=== PATIENT | female | born 1985 | race Hispanic/Latino ===

== ENCOUNTER 2018-04-04 09:24 | Inpatient (IN) | payer OTHER ==
[~2018-04-04] VITALS: Ht 165.1 cm; Wt 81.6 kg
[2018-04-04 09:55] VITALS: BP 112/61
[2018-04-04 10:40] LABS: HEMATOCRIT 35.8 % (36-48); MEAN CORPUSCULAR HEMOGLOBIN 29.1 pg (27.0-33.0); MEAN CORPUSCULAR HGB CONC 32.5 g/dL (32.0-36.0); MEAN CORPUSCULAR VOLUME 89.6 fL (79-99); PLATELET COUNT (AUTO) 262 K/uL (130-400); RED BLOOD CELL COUNT(AUTO) 3.99 MIL/uL (4.00-5.50); RED CELL DISTRIBUTION WIDTH 14.7 % (11.0-15.5); WHITE BLOOD COUNT (AUTO) 6.9 K/uL (4.8-10.8)
[2018-04-04 10:48] LABS: HEMOGLOBIN A1C 10.7 % (4.0-6.0)
[2018-04-04 11:12] VITALS: BP 101/59
[2018-04-04] MEDS ORDERED: GLYB5TAB8 PO (15:22)
[2018-04-04 15:33] VITALS: BP 106/60
[2018-04-04] MEDS: INSULIN HUMULIN R 100 UNIT/ML 3ML SQ SCH (17:12)
[2018-04-04] MEDS: INSULIN NPH 100 UNIT/ML 3ML SQ SCH (17:13)
[2018-04-04 19:39] VITALS: BP 98/60
[2018-04-05] VITALS (8 sets, daily range): BP systolic 93–120; BP diastolic 52–77
[2018-04-05] MEDS: INSULIN NPH 100 UNIT/ML 3ML SQ SCH ×2 (07:30→16:59)
[2018-04-05] MEDS: INSULIN HUMULIN R 100 UNIT/ML 3ML SQ SCH ×3 (07:31→17:00)
[2018-04-06 03:39] VITALS: BP 88/60
[2018-04-06 07:30] VITALS: BP 96/59
[2018-04-06] MEDS: INSULIN HUMULIN R 100 UNIT/ML 3ML SQ SCH ×3 (07:30→17:07)
[2018-04-06] MEDS: INSULIN NPH 100 UNIT/ML 3ML SQ SCH ×2 (07:33→17:09)
[2018-04-06 11:20] VITALS: BP 118/71
[2018-04-06 15:45] VITALS: BP 97/56
[2018-04-06 19:32] VITALS: BP 107/62
[2018-04-07 00:01] VITALS: BP 85/58
[2018-04-07 03:27] VITALS: BP 101/51
[2018-04-07 07:34] VITALS: BP 99/47
[2018-04-07] MEDS: INSULIN NPH 100 UNIT/ML 3ML SQ SCH ×2 (08:18→17:09)
[2018-04-07] MEDS: INSULIN HUMULIN R 100 UNIT/ML 3ML SQ SCH ×3 (08:19→17:00)
[2018-04-07 11:38] VITALS: BP 113/56
[2018-04-07 15:41] VITALS: BP 102/57
[2018-04-07 19:45] VITALS: BP 111/63
[2018-04-08] VITALS (7 sets, daily range): BP systolic 90–117; BP diastolic 40–73
[2018-04-08] MEDS: INSULIN NPH 100 UNIT/ML 3ML SQ SCH (08:07)
[2018-04-08] MEDS: INSULIN HUMULIN R 100 UNIT/ML 3ML SQ SCH ×3 (08:08→17:05)
[2018-04-08] MEDS ORDERED: INSULIN NPH 100 UNIT/ML 3ML SQ SCH (21:00)
[2018-04-09 03:23] VITALS: BP 87/42
[2018-04-09 07:30] VITALS: BP 111/52
[2018-04-09] MEDS ORDERED: INSULIN NPH 100 UNIT/ML 3ML SQ SCH (07:30)
[2018-04-09] MEDS: INSULIN HUMULIN R 100 UNIT/ML 3ML SQ SCH ×2 (08:55→17:18)
[2018-04-09 12:03] VITALS: BP 119/62
[2018-04-09 16:10] VITALS: BP 130/90
== END 2018-04-09 17:30 | disposition left against medical advice (07) | DRG 833 ==
LOC: WSH 09:24 → OBSVTOIN 09:24 → WSH 04-08 18:15
PROVIDERS: ADMIT Obstetrics & Gynecology; ATTEND Obstetrics & Gynecology
PROC: 3E0234Z Introduction of Serum, Toxoid and Vaccine into Muscle, Percutaneous Approach (ICD-10-PCS; principal; 2018-04-04)
DX: O24.419 Gestational diabetes mellitus in pregnancy, unspecified control (principal); Z3A.01 Less than 8 weeks gestation of pregnancy; Z23 Encounter for immunization; Z71.3 Dietary counseling and surveillance
CPT/HCPCS: 36415; 76801; 82948; 83036; 85027; G0008; J1815; Q2038

== ENCOUNTER 2018-07-04 12:09 | Emergency (ER) | payer MEDICAID, OTHER ==
[~2018-07-04 12:09] MED LIST: GLYB5TAB8 PO
[2018-07-04 13:03] LABS: APPEARANCE,URINE Clear (CLEAR); BILIRUBIN,URINE Negative (NEGATIVE); COLOR,URINE Yellow (YELLOW); GLUCOSE, URINE (UA) Negative (NEGATIVE); KETONES,URINE Trace mg/dL (NEGATIVE); LEUKOCYTE ESTERASE ,URINE Negative (NEGATIVE); NITRATE,URINE Negative (NEGATIVE); OCCULT BLOOD,URINE Negative (NEGATIVE); PROTEIN,URINE Negative (NEGATIVE); UROBILINOGEN,URINE 0.2 mg/dL (0.2-1.0)
[2018-07-04 13:10] LABS: BACTERIA,URINE Moderate /HPF (None Seen); MUCUS,URINE Rare LPF (None Seen); RBC,URINE 0-1 /HPF (0-1); SQUAMOUS EPITHELIAL CELL,UR Many /HPF (0-2); WBC,URINE 0-1 /HPF (0-1)
== END 2018-07-04 13:22 | disposition home or self-care (01) ==
LOC: EDH 12:09
DX: O26.892 Other specified pregnancy related conditions, second trimester (principal); R10.32 Left lower quadrant pain; O24.912 Unspecified diabetes mellitus in pregnancy, second trimester; Z3A.20 20 weeks gestation of pregnancy; Z90.49 Acquired absence of other specified parts of digestive tract
CPT/HCPCS: 81001

== ENCOUNTER 2018-09-28 16:27 | Observation (INO) | payer OTHER ==
[~2018-09-28] VITALS: Ht 165.1 cm; Wt 99.8 kg
[2018-09-28] MEDS ORDERED: LACTATED RINGERS 1000ML 1,000 ML IV SCH (17:00)
[2018-09-28 17:03] VITALS: BP 119/70
[2018-09-28 17:09] LABS: APPEARANCE,URINE Clear (CLEAR); BILIRUBIN,URINE Negative (NEGATIVE); COLOR,URINE Yellow (YELLOW); GLUCOSE, URINE (UA) Negative (NEGATIVE); KETONES,URINE 40 mg/dL (NEGATIVE); LEUKOCYTE ESTERASE ,URINE Negative (NEGATIVE); NITRATE,URINE Negative (NEGATIVE); OCCULT BLOOD,URINE Negative (NEGATIVE); PH,URINE 6.5 (5.0-8.0); PROTEIN,URINE Negative (NEGATIVE); UROBILINOGEN,URINE 0.2 mg/dL (0.2-1.0)
== END 2018-09-28 18:19 | disposition home or self-care (01) ==
LOC: LDH 16:27
PROVIDERS: ADMIT Obstetrics & Gynecology; ATTEND Obstetrics & Gynecology
DX: O60.03 Preterm labor without delivery, third trimester (principal); O24.113 Pre-existing type 2 diabetes mellitus, in pregnancy, third trimester; O26.893 Other specified pregnancy related conditions, third trimester; R19.7 Diarrhea, unspecified; Z3A.30 30 weeks gestation of pregnancy
CPT/HCPCS: 81003; 82948; G0378 ×3; J7120; 96360

== ENCOUNTER 2018-10-12 12:06 | Observation (INO) | payer MEDICAID, OTHER ==
[2018-10-12 12:49] LABS: APPEARANCE,URINE Clear (CLEAR); BILIRUBIN,URINE Negative (NEGATIVE); COLOR,URINE Yellow (YELLOW); GLUCOSE, URINE (UA) Negative (NEGATIVE); KETONES,URINE Negative (NEGATIVE); LEUKOCYTE ESTERASE ,URINE Negative (NEGATIVE); NITRATE,URINE Negative (NEGATIVE); OCCULT BLOOD,URINE Negative (NEGATIVE); PROTEIN,URINE Negative (NEGATIVE); UROBILINOGEN,URINE 0.2 mg/dL (0.2-1.0)
[2018-10-12] MEDS: LACTATED RINGERS 1000ML 1,000 ML IV SCH ×2 (12:50→13:40)
[2018-10-12] MEDS ORDERED: GLUCAGON 1MG KIT 1 MG ML IM PRN (13:15)
[2018-10-12] MEDS ORDERED: DEXTROSE 50%-WATER 50 ML DISP.SYRIN IV PRN (13:15)
[2018-10-12 13:29] LABS: MEAN CORPUSCULAR HEMOGLOBIN 29.1 pg (27.0-33.0); MEAN CORPUSCULAR HGB CONC 33.2 g/dL (32.0-36.0); MEAN CORPUSCULAR VOLUME 87.7 fL (79-99); PLATELET COUNT (AUTO) 280 K/uL (130-400); RED BLOOD CELL COUNT(AUTO) 3.87 MIL/uL (4.00-5.50); RED CELL DISTRIBUTION WIDTH 14.4 % (11.0-15.5); WHITE BLOOD COUNT (AUTO) 7.9 K/uL (4.8-10.8)
[2018-10-12] MEDS ORDERED: PHARMACY COMMUNICATION MISC SCH (13:45)
[2018-10-12] MEDS ORDERED: CELESTONE SOLUSPAN 6 MG/ML 5ML VIAL IM SCH (13:51)
[2018-10-12] MEDS ORDERED: DEXTROSE 5%-LACTATED RINGERS 1,000 ML IV SCH (15:00)
[2018-10-13 09:21] LABS: HEPATITIS Bs ANTIGEN SCREEN P Negative (Negative)
[2018-11-14] MEDS ORDERED: NPH,100V SQ ×2 (09:25)
[2018-11-14] MEDS ORDERED: INSU100C6 SQ ×2 (09:25)
[2018-11-14] MEDS ORDERED: FERR-82 PO (09:25)
[2018-11-14] MEDS ORDERED: PNV1TABL17 PO (09:25)
== END 2018-10-12 17:25 | disposition home or self-care (01) ==
LOC: LDH 12:06
PROVIDERS: ADMIT Obstetrics & Gynecology; ATTEND Obstetrics & Gynecology
DX: O62.9 Abnormality of forces of labor, unspecified (principal); O24.113 Pre-existing type 2 diabetes mellitus, in pregnancy, third trimester; O99.333 Smoking (tobacco) complicating pregnancy, third trimester; F17.210 Nicotine dependence, cigarettes, uncomplicated; Z79.899 Other long term (current) drug therapy; Z3A.32 32 weeks gestation of pregnancy
CPT/HCPCS: 36415; 81003; 82947 ×2; 82948 ×7; 85027; 86592; 86850; 86900; 86901; 87340; G0378 ×6; J7120; 96360; 96361

== ENCOUNTER 2018-10-27 16:46 | Observation (INO) | payer OTHER ==
[~2018-10-27] VITALS: Ht 165.1 cm; Wt 101.2 kg
[2018-10-27] MEDS ORDERED: LACTATED RINGERS 1000ML 1,000 ML IV SCH (17:09)
[2018-10-27 18:07] LABS: APPEARANCE,URINE HAZY (CLEAR); BILIRUBIN,URINE Negative (NEGATIVE); COLOR,URINE Yellow (YELLOW); GLUCOSE, URINE (UA) Negative (NEGATIVE); KETONES,URINE Negative (NEGATIVE); LEUKOCYTE ESTERASE ,URINE Negative (NEGATIVE); NITRATE,URINE Negative (NEGATIVE); OCCULT BLOOD,URINE Negative (NEGATIVE); PROTEIN,URINE Negative (NEGATIVE); UROBILINOGEN,URINE 0.2 mg/dL (0.2-1.0)
[2018-10-27 18:28] LABS: BACTERIA,URINE Many /HPF (None Seen); RBC,URINE None Seen /HPF (0-1); SQUAMOUS EPITHELIAL CELL,UR 0-2 /HPF (0-2); WBC,URINE 0-1 /HPF (0-1)
[2018-10-27] MEDS ORDERED: LACTATED RINGERS 1000ML 1,000 ML IV PRN (18:52)
[2018-10-27] MEDS ORDERED: AMPICILLIN 2GM+NS 100ML 100 ML IV SCH (19:00)
[2018-10-27] MEDS ORDERED: DEXAMETHASONE SOD PHOSPHATE 4 MG/ML 1ML VIAL IM SCH (19:00)
[2018-10-27] MEDS ORDERED: TERBUTALINE SULFATE VIAL 1MG/ML SQ PRN (19:00)
== END 2018-10-27 20:50 | disposition home or self-care (01) ==
LOC: LDH 16:46
PROVIDERS: ADMIT Obstetrics & Gynecology; ATTEND Obstetrics & Gynecology
DX: O36.8130 Decreased fetal movements, third trimester, not applicable or unspecified (principal); O24.113 Pre-existing type 2 diabetes mellitus, in pregnancy, third trimester; Z3A.36 36 weeks gestation of pregnancy
CPT/HCPCS: 76805; 81001; 82948; 96365; 96372; G0378 ×5; J0290; J1100; J3105

== ENCOUNTER 2021-06-22 00:29 | Inpatient (IN) | payer MEDICAID, OTHER ==
[~2021-06-22] VITALS: Ht 165.1 cm; Wt 80.3 kg
[~2021-06-22 00:29] MED LIST changes: +FERR-82 PO; -GLYB5TAB8 PO; +INSU100C6 SQ; +NPH,100V SQ; +PNV1TABL17 PO
[2021-06-22] MEDS ORDERED: METOCLOPRAMIDE 10 MG/2 ML VIAL ONE (00:58)
[2021-06-22] MEDS ORDERED: FAMOTIDINE 20MG VIAL IV ONE ×2 (00:58→01:00)
[2021-06-22] MEDS ORDERED: PANTOPRAZOLE 40 MG/VIAL ONE (00:58)
[2021-06-22] MEDS ORDERED: ONDANSETRON 4MG INJ ONE (00:58)
[2021-06-22] MEDS ORDERED: METOCLOPRAMIDE 10 MG/2 ML VIAL IVP ONE (01:00)
[2021-06-22] MEDS ORDERED: PANTOPRAZOLE 40 MG/VIAL IVP ONE (01:00)
[2021-06-22] MEDS ORDERED: ONDANSETRON 4MG INJ IVP ONE (01:00)
[2021-06-22] MEDS ORDERED: 0.9%NACL 1000ML 1,000 ML IV ONE ×5 (01:00→03:30)
[2021-06-22 01:02] LABS: BASOPHILS % (AUTO) 0.2 % (0.0-5.0); EOSINOPHILS % (AUTO) 0.2 % (0.0-8.0); HEMATOCRIT 39.7 % (36-48); LYMPHOCYTES % (AUTO) 17.4 % (21.0-51.0); MEAN CORPUSCULAR HEMOGLOBIN 29.4 pg (27.0-33.0); MEAN CORPUSCULAR HGB CONC 33.2 g/dL (32.0-36.0); MEAN CORPUSCULAR VOLUME 88.4 fL (79-99); MONOCYTES % (AUTO) 6.7 % (3.0-13.0); NEUTROPHILS % (AUTO) 75.2 % (40.0-77.0); PLATELET COUNT (AUTO) 367 K/uL (130-400); RED BLOOD CELL COUNT(AUTO) 4.49 MIL/uL (4.00-5.50); RED CELL DISTRIBUTION WIDTH 12.1 % (11.0-15.5); WHITE BLOOD COUNT (AUTO) 13.3 K/uL (4.8-10.8)
[2021-06-22 01:19] LABS: CREATININE 0.6 mg/dL (0.5-1.5); POTASSIUM 3.4 mmol/L (3.5-5.1)
[2021-06-22 01:30] LABS: ALBUMIN 3.9 g/dL (3.5-5.0); BILIRUBIN,TOTAL 0.2 mg/dL (0.2-1.0); TOTAL PROTEIN, SERUM 8.2 g/dL (6.0-8.3)
[2021-06-22] MEDS ORDERED: IOHEXOL 350 MG/ML 100ML INFUS..BTL IV ONE (01:39)
[2021-06-22 01:40] LABS: BILIRUBIN,URINE Negative (NEGATIVE); COLOR,URINE Yellow (YELLOW); GLUCOSE, URINE (UA) >=1000 mg/dL (NEGATIVE); KETONES,URINE >=80 mg/dL (NEGATIVE); LEUKOCYTE ESTERASE ,URINE Small (NEGATIVE); NITRATE,URINE Positive (NEGATIVE); OCCULT BLOOD,URINE Large (NEGATIVE); PH,URINE 7.5 (5.0-8.0); PROTEIN,URINE POS 2+ mg/dL (NEGATIVE)
[2021-06-22 01:43] LABS: APPEARANCE,URINE SLIGHTLY CLOUDY (CLEAR); HCG,QUAL RESULT NEGATIVE (NEGATIVE)
[2021-06-22 01:51] LABS: BACTERIA,URINE Moderate /HPF (None Seen); RBC,URINE TNTC /HPF (0-1); WBC,URINE TNTC /HPF (0-1)
[2021-06-22] MEDS ORDERED: CEFTRIAXONE 1G VIAL IVP ONE (02:00)
[2021-06-22] MEDS ORDERED: CEFTRIAXONE 1G VIAL ONE (02:04)
[2021-06-22] MEDS ORDERED: KETOROLAC 30MG VIAL (30MG/ML) ONE (03:20)
[2021-06-22] MEDS ORDERED: KETOROLAC 30MG VIAL (30MG/ML) IV ONE (03:30)
[2021-06-22] MEDS ORDERED: POTASSIUM CHLORIDE 10MEQ/100ML 10 MEQ/100 ML ML IV SCH (03:45)
[2021-06-22] MEDS ORDERED: POTASSIUM CHLORIDE 10MEQ/100ML 100 ML IV ONE (03:53)
[2021-06-22] MEDS ORDERED: MORPHINE 4 MG SYG IV PRN (04:00)
[2021-06-22] MEDS ORDERED: HYDRALAZINE 20MG/ML VIAL IV PRN (04:00)
[2021-06-22] MEDS ORDERED: ONDANSETRON 4MG INJ IV PRN (04:00)
[2021-06-22] MEDS ORDERED: ACETAMINOPHEN 325 MG TAB PO PRN (04:00)
[2021-06-22] MEDS ORDERED: MORPHINE 2 MG SYG IV PRN (04:00)
[2021-06-22 04:17] LABS: CARBON DIOXIDE 27 mmol/L (21-32); CHLORIDE 107 mmol/L (101-111); CREATININE 0.5 mg/dL (0.5-1.5); GLOMERULAR FILTR. RATE CALC 151 mL/min (>60); GLUCOSE,RANDOM 161 mg/dL (70-105); POTASSIUM 3.4 mmol/L (3.5-5.1); SODIUM SERUM 143 mmol/L (136-145); UREA NITROGEN, BLOOD 9 mg/dL (7-18)
[2021-06-22 04:20] LABS: PHOSPHORUS 2.6 mg/dL (2.5-4.9); URIC ACID 2.7 mg/dL (2.6-7.2)
[2021-06-22 04:21] LABS: AMPHET/METH SCREEN,URINE NEGATIVE (NEGATIVE); BARBITURATE SCREEN, URINE NEGATIVE (NEGATIVE); BENZODIAZEPINES SCREEN,URINE NEGATIVE (NEGATIVE); CANNABINOID SCREEN,URINE NEGATIVE (NEGATIVE); COCAINE SCREEN,URINE NEGATIVE (NEGATIVE); OPIATE SCREEN,URINE NEGATIVE (NEGATIVE); PHENCYCLIDINE SCREEN,URINE NEGATIVE (NEGATIVE)
[2021-06-22 04:40] VITALS: BP 100/60
[2021-06-22] MEDS ORDERED: POTASSIUM CHLORIDE 10MEQ/100ML 10 MEQ/100 ML ML IV ONE (04:45)
[2021-06-22] MEDS: LACTATED RINGERS 1000ML 1,000 ML IV SCH ×2 (05:00→08:50)
[2021-06-22 05:18] LABS: CHOLESTEROL 212 mg/dL (<200); HDL CHOLESTEROL 33 mg/dL (35-85); LDL DIRECT 137 mg/dL (0-99); TRIGLYCERIDES 148 mg/dL (30-200)
[2021-06-22 05:29] LABS: HEMOGLOBIN A1C 11.7 % (4.0-6.0)
[2021-06-22] MEDS: INSULIN HUMULIN R 100 UNIT/ML 3ML SQ SCH ×4 (05:54→20:43)
[2021-06-22 07:30] VITALS: BP 96/48
[2021-06-22] MEDS: FAMOTIDINE 20MG VIAL IV SCH ×2 (08:45→20:07)
[2021-06-22] MEDS: LEVOFLOXACIN 750 MG/D5W 150 ML 150 ML IV SCH (08:45)
[2021-06-22] MEDS: ENOXAPARIN SODIUM 30 MG/0.3 ML SQ SCH (08:46)
[2021-06-22 09:04] LABS: CREATININE 0.4 mg/dL (0.5-1.5); POTASSIUM 3.3 mmol/L (3.5-5.1)
[2021-06-22 11:30] VITALS: BP 97/59
[2021-06-22 15:30] VITALS: BP 114/75
[2021-06-22] MEDS ORDERED: KCL 20 MEQ ERTAB PO ONE (17:45)
[2021-06-22 20:00] VITALS: BP 103/59
[2021-06-22] MEDS ORDERED: ATORVASTATIN 40 MG TABLET PO SCH (21:00)
[2021-06-22] MEDS ORDERED: INSULIN GLARGINE 100 UNITS/ML 10 ML VIAL SQ SCH (21:00)
[2021-06-23 00:35] VITALS: BP 90/53
[2021-06-23 04:32] VITALS: BP 102/66
[2021-06-23 04:59] LABS: BASOPHILS % (AUTO) 0.2 % (0.0-5.0); HEMATOCRIT 31.6 % (36-48); LYMPHOCYTES % (AUTO) 37.6 % (21.0-51.0); MEAN CORPUSCULAR VOLUME 93.8 fL (79-99); MONOCYTES % (AUTO) 6.9 % (3.0-13.0); NEUTROPHILS % (AUTO) 54.1 % (40.0-77.0); PLATELET COUNT (AUTO) 263 K/uL (130-400); RED BLOOD CELL COUNT(AUTO) 3.37 MIL/uL (4.00-5.50); RED CELL DISTRIBUTION WIDTH 12.5 % (11.0-15.5); WHITE BLOOD COUNT (AUTO) 6.3 K/uL (4.8-10.8)
[2021-06-23 05:06] LABS: ALBUMIN 2.6 g/dL (3.5-5.0); BILIRUBIN,TOTAL 0.2 mg/dL (0.2-1.0); CREATININE 0.5 mg/dL (0.5-1.5); POTASSIUM 4.3 mmol/L (3.5-5.1); TOTAL PROTEIN, SERUM 5.8 g/dL (6.0-8.3)
[2021-06-23] MEDS: INSULIN HUMULIN R 100 UNIT/ML 3ML SQ SCH ×2 (06:33→11:59)
[2021-06-23 07:30] VITALS: BP 105/69
[2021-06-23] MEDS: LEVOFLOXACIN 750 MG/D5W 150 ML 150 ML IV SCH (09:33)
[2021-06-23] MEDS: FAMOTIDINE 20MG VIAL IV SCH (09:33)
[2021-06-23] MEDS: ENOXAPARIN SODIUM 30 MG/0.3 ML SQ SCH (09:34)
[2021-06-23 11:00] VITALS: BP 110/73
[2021-06-23] MEDS ORDERED: ATOR40TA69 PO (12:21)
[2021-06-23] MEDS ORDERED: CEFU500T67 PO (12:21)
[2021-06-23] MEDS ORDERED: METF-526 PO (12:39)
[2021-06-23] MEDS ORDERED: GLIP5TAB11 PO (12:39)
== END 2021-06-23 13:00 | disposition home or self-care (01) | DRG 690 ==
LOC: EDH 00:29 → EDHIP 00:30 → 3CH 04:32
PROVIDERS: ADMIT Hospitalist; ATTEND Hospitalist
DX: N13.6 Pyonephrosis (principal); E86.9 Volume depletion, unspecified; E11.65 Type 2 diabetes mellitus with hyperglycemia; D72.829 Elevated white blood cell count, unspecified; Z79.4 Long term (current) use of insulin; Z83.3 Family history of diabetes mellitus; Z82.49 Family history of ischemic heart disease and other diseases of the circulatory system
CPT/HCPCS: 36415; 36600; 74177; 80048; 80053; 80061; 80305; 81001; 81025; 82010; 82948; 83036; 83605; 83690; 83735; 84100; 84145; 84550; 85025; 87040; 87077; 87088; 87186; 99291; C9113; G0378; J0696; J1650; J1815; J1885; J1956; J2405; J2765; J3490; Q9967

== ENCOUNTER 2021-07-09 21:43 | Emergency (ER) | payer SELFPAY ==
[~2021-07-09] VITALS: Ht 165.1 cm; Wt 80.3 kg
[~2021-07-09 21:43] MED LIST changes: +ATOR40TA69 PO; +CEFU500T67 PO; +GLIP5TAB11 PO; +METF-526 PO
[2021-07-09 22:06] LABS: APPEARANCE,URINE Turbid (CLEAR); BILIRUBIN,URINE Negative (NEGATIVE); COLOR,URINE Yellow (YELLOW); GLUCOSE, URINE (UA) >=1000 mg/dL (NEGATIVE); KETONES,URINE 15 mg/dL (NEGATIVE); LEUKOCYTE ESTERASE ,URINE Moderate (NEGATIVE); NITRATE,URINE Positive (NEGATIVE); OCCULT BLOOD,URINE Large (NEGATIVE); PROTEIN,URINE >=1000 mg/dL (NEGATIVE)
[2021-07-09 22:25] LABS: BACTERIA,URINE Many /HPF (None Seen); RBC,URINE 26-50 /HPF (0-1); SQUAMOUS EPITHELIAL CELL,UR Few /HPF (0-2); WBC,URINE TNTC /HPF (0-1)
[2021-07-09] MEDS ORDERED: CEFTRIAXONE 1G VIAL 1 GM in 0.9%NACL 50ML 50 ML IV ONE (23:00)
[2021-07-09] MEDS ORDERED: PHENAZOPYRIDINE HCL 200 MG TABLET PO ONE (23:00)
[2021-07-09] MEDS ORDERED: CEFTRIAXONE 1G VIAL ONE (23:24)
[2021-07-09 23:27] LABS: BASOPHILS % (AUTO) 0.2 % (0.0-5.0); EOSINOPHILS % (AUTO) 0.3 % (0.0-8.0); HEMATOCRIT 41.4 % (36-48); MEAN CORPUSCULAR HEMOGLOBIN 29.2 pg (27.0-33.0); MEAN CORPUSCULAR HGB CONC 32.9 g/dL (32.0-36.0); MEAN CORPUSCULAR VOLUME 88.8 fL (79-99); MONOCYTES % (AUTO) 7.9 % (3.0-13.0); NEUTROPHILS % (AUTO) 70.2 % (40.0-77.0); PLATELET COUNT (AUTO) 283 K/uL (130-400); RED BLOOD CELL COUNT(AUTO) 4.66 MIL/uL (4.00-5.50); RED CELL DISTRIBUTION WIDTH 12.5 % (11.0-15.5); WHITE BLOOD COUNT (AUTO) 12.1 K/uL (4.8-10.8)
[2021-07-09 23:39] LABS: CREATININE 0.4 mg/dL (0.5-1.5); POTASSIUM 4.2 mmol/L (3.5-5.1)
[2021-07-09 23:45] LABS: ALBUMIN 3.5 g/dL (3.5-5.0); BILIRUBIN,TOTAL 0.4 mg/dL (0.2-1.0); TOTAL PROTEIN, SERUM 8.1 g/dL (6.0-8.3)
[2021-07-10 00:37] VITALS: BP 131/65
[2021-07-10] MEDS ORDERED: PHEN-847 PO (01:03)
[2021-07-10] MEDS ORDERED: CEPH500B PO (01:03)
== END 2021-07-10 01:31 | disposition left against medical advice (07) ==
LOC: EDH 21:43 → EDSEX 21:43 → EDH 07-10 01:31
DX: N39.0 Urinary tract infection, site not specified (principal); E11.9 Type 2 diabetes mellitus without complications; Z79.4 Long term (current) use of insulin; Z79.899 Other long term (current) drug therapy; Z90.49 Acquired absence of other specified parts of digestive tract
CPT/HCPCS: 36415; 80053; 81001; 85025; 87077; 87088; 87186; 96374; 99283; J0696 ×2

== ENCOUNTER 2021-12-07 06:31 | Inpatient (IN) | payer MEDICAID, OTHER ==
[2021-12-07] VITALS (28 sets, daily range): BP systolic 86–103; BP diastolic 38–62
[~2021-12-07] VITALS: Ht 165.1 cm; Wt 74.3 kg
[~2021-12-07 06:31] MED LIST changes: +CEPH500B PO; +PHEN-847 PO
[2021-12-07 06:56] LABS: BASOPHILS % (AUTO) 0.2 % (0.0-5.0); HEMATOCRIT 48.2 % (36-48); MEAN CORPUSCULAR HGB CONC 32.6 g/dL (32.0-36.0); MEAN CORPUSCULAR VOLUME 88.9 fL (79-99); MONOCYTES % (AUTO) 5.5 % (3.0-13.0); NEUTROPHILS % (AUTO) 90.8 % (40.0-77.0); PLATELET COUNT (AUTO) 340 K/uL (130-400); RED BLOOD CELL COUNT(AUTO) 5.42 MIL/uL (4.00-5.50); RED CELL DISTRIBUTION WIDTH 12.6 % (11.0-15.5); WHITE BLOOD COUNT (AUTO) 17.1 K/uL (4.8-10.8)
[2021-12-07 06:58] LABS: APPEARANCE,URINE CLEAR (CLEAR); BILIRUBIN,URINE NEGATIVE (NEGATIVE); COLOR,URINE YELLOW (YELLOW); GLUCOSE, URINE (UA) >=1000 mg/dL (NEGATIVE); KETONES,URINE >=80 mg/dL (NEGATIVE); LEUKOCYTE ESTERASE ,URINE NEGATIVE (NEGATIVE); NITRATE,URINE NEGATIVE (NEGATIVE); OCCULT BLOOD,URINE NEGATIVE (NEGATIVE); PROTEIN,URINE NEGATIVE (NEGATIVE); UROBILINOGEN,URINE 0.2 mg/dL (0.2-1.0)
[2021-12-07 07:02] LABS: HCG,QUAL RESULT NEGATIVE (NEGATIVE)
[2021-12-07 07:08] LABS: BACTERIA,URINE Rare /HPF (None Seen); MUCUS,URINE Few LPF (None Seen); RBC,URINE None Seen /HPF (0-1); SQUAMOUS EPITHELIAL CELL,UR 0-2 /HPF (0-2); WBC,URINE None Seen /HPF (0-1); YEAST,URINE BUDDING Few /HPF (None Seen)
[2021-12-07 07:09] LABS: ALBUMIN 3.9 g/dL (3.5-5.0); CREATININE 0.6 mg/dL (0.5-1.5); POTASSIUM 4.2 mmol/L (3.5-5.1)
[2021-12-07 07:11] LABS: BILIRUBIN,TOTAL 0.5 mg/dL (0.2-1.0); TOTAL PROTEIN, SERUM 8.4 g/dL (6.0-8.3)
[2021-12-07] MEDS ORDERED: 0.9%NACL 1000ML 1,000 ML IV ONE ×2 (07:30→08:00)
[2021-12-07] MEDS ORDERED: ONDANSETRON 4MG INJ IVP ONE (07:30)
[2021-12-07 07:49] LABS: ABG OXYGEN SATURATION 44.8 % (95.0-99.0); BASE EXCESS,VENOUS BLOOD GAS -11.8 (-2.0-3.0); HCO3,VENOUS BLOOD GAS 15.2 (21.0-28.0); PCO2,VENOUS BLOOD GAS 38 (32-45); PH,VENOUS BLOOD GAS 7.217 (7.350-7.450)
[2021-12-07] MEDS ORDERED: POTASSIUM BICARB/CIT AC 25 MEQ TABLET.EFF PO ONE (08:00)
[2021-12-07] MEDS ORDERED: INSULIN REGULAR, HUMAN 3ML 100 UNIT in 0.9%NACL 100ML 99 ML IV PRN ×2 (08:00)
[2021-12-07 08:12] LABS: MAGNESIUM 1.8 mg/dL (1.80-2.40); PHOSPHORUS 4.7 mg/dL (2.5-4.9)
[2021-12-07] MEDS ORDERED: PHARMACY COMMUNICATION MISC SCH (08:30)
[2021-12-07] MEDS: CEFTRIAXONE 2GM VIAL IVP SCH (08:57)
[2021-12-07] MEDS ORDERED: POTASSIUM CHLORIDE 10MEQ/100ML 100 ML IV PRN (09:00)
[2021-12-07] MEDS ORDERED: D5W-1/2 NS/20MEQ KCL 1,000 ML IV SCH (09:00)
[2021-12-07] MEDS ORDERED: 0.9%NACL 1000ML 1,000 ML IV SCH (09:00)
[2021-12-07 09:08] LABS: CREATININE 0.7 mg/dL (0.5-1.5); POTASSIUM 4.7 mmol/L (3.5-5.1)
[2021-12-07 09:11] LABS: HEMOGLOBIN A1C 13.1 % (4.0-6.0)
[2021-12-07] MEDS: DEXTROSE 5 %-0.45 % NACL 1,000 ML IV PRN ×2 (12:06→22:54)
[2021-12-07 12:42] LABS: CREATININE 0.4 mg/dL (0.5-1.5); POTASSIUM 3.6 mmol/L (3.5-5.1)
[2021-12-07 14:39] LABS: AMPHET/METH SCREEN,URINE NEGATIVE (NEGATIVE); BARBITURATE SCREEN, URINE NEGATIVE (NEGATIVE); BENZODIAZEPINES SCREEN,URINE NEGATIVE (NEGATIVE); CANNABINOID SCREEN,URINE NEGATIVE (NEGATIVE); COCAINE SCREEN,URINE NEGATIVE (NEGATIVE); OPIATE SCREEN,URINE NEGATIVE (NEGATIVE); PHENCYCLIDINE SCREEN,URINE NEGATIVE (NEGATIVE)
[2021-12-07] MEDS: INSULIN NPH 100 UNIT/ML 3ML SQ SCH (16:10)
[2021-12-07 16:15] LABS: CREATININE 0.4 mg/dL (0.5-1.5); POTASSIUM 3.8 mmol/L (3.5-5.1)
[2021-12-07] MEDS ORDERED: POTASSIUM CHLORIDE 10% ELIXIR 20 MEQ/15 ML UDCUP PO PRN (18:30)
[2021-12-07] MEDS ORDERED: POTASSIUM CHLORIDE 20MEQ/100ML 100 ML IV PRN (18:30)
[2021-12-07 20:22] LABS: CREATININE 0.4 mg/dL (0.5-1.5); POTASSIUM 3.7 mmol/L (3.5-5.1)
[2021-12-07] MEDS: INSULIN GLARGINE 100 UNITS/ML 10 ML VIAL SQ SCH (21:27)
[2021-12-07] MEDS: KCL 20 MEQ ERTAB PO PRN (22:54)
[2021-12-08] VITALS (14 sets, daily range): BP systolic 83–112; BP diastolic 45–81
[2021-12-08 01:20] LABS: CREATININE 0.4 mg/dL (0.5-1.5); POTASSIUM 3.1 mmol/L (3.5-5.1)
[2021-12-08] MEDS: KCL 20 MEQ ERTAB PO PRN ×4 (01:34→08:12)
[2021-12-08] MEDS: MAGNESIUM 2GM PREMIX 50ML 50 ML IV PRN (01:43)
[2021-12-08 05:16] LABS: BASOPHILS % (AUTO) 0.3 % (0.0-5.0); EOSINOPHILS % (AUTO) 0.8 % (0.0-8.0); HEMATOCRIT 34.8 % (36-48); LYMPHOCYTES % (AUTO) 33.8 % (21.0-51.0); MEAN CORPUSCULAR HEMOGLOBIN 28.4 pg (27.0-33.0); MEAN CORPUSCULAR HGB CONC 31.3 g/dL (32.0-36.0); MEAN CORPUSCULAR VOLUME 90.6 fL (79-99); MONOCYTES % (AUTO) 7.7 % (3.0-13.0); NEUTROPHILS % (AUTO) 57.2 % (40.0-77.0); PLATELET COUNT (AUTO) 253 K/uL (130-400); RED BLOOD CELL COUNT(AUTO) 3.84 MIL/uL (4.00-5.50); RED CELL DISTRIBUTION WIDTH 12.8 % (11.0-15.5); WHITE BLOOD COUNT (AUTO) 6.2 K/uL (4.8-10.8)
[2021-12-08 05:28] LABS: CREATININE 0.4 mg/dL (0.5-1.5); MAGNESIUM 2.1 mg/dL (1.80-2.40); POTASSIUM 3.5 mmol/L (3.5-5.1)
[2021-12-08] MEDS: INSULIN NPH 100 UNIT/ML 3ML SQ SCH (06:50)
[2021-12-08] MEDS: INSULIN GLARGINE 100 UNITS/ML 10 ML VIAL SQ SCH (06:51)
[2021-12-08 06:59] LABS: ABG BASE EXCESS -7.6 mmol/L (-2.0-3.0); ABG HCO3 16.2 mmol/L (21.0-28.0); ABG OXYGEN SATURATION 97.2 % (95.0-99.0); ABG PCO2 29 mmHg (32-45)
[2021-12-08] MEDS ORDERED: INSULIN GLARGINE 100 UNITS/ML 10 ML VIAL SQ ONE (07:30)
[2021-12-08] MEDS: CEFTRIAXONE 2GM VIAL IVP SCH (08:05)
[2021-12-08] MEDS: INSULIN HUMULIN R 100 UNIT/ML 3ML SQ SCH ×7 (08:09→20:48)
[2021-12-08 08:59] LABS: CREATININE 0.4 mg/dL (0.5-1.5); POTASSIUM 3.9 mmol/L (3.5-5.1)
[2021-12-09 03:00] VITALS: BP 93/55
[2021-12-09 04:15] LABS: BASOPHILS % (AUTO) 0.3 % (0.0-5.0); EOSINOPHILS % (AUTO) 0.9 % (0.0-8.0); HEMATOCRIT 35.6 % (36-48); LYMPHOCYTES % (AUTO) 42.3 % (21.0-51.0); MEAN CORPUSCULAR HEMOGLOBIN 28.9 pg (27.0-33.0); MEAN CORPUSCULAR VOLUME 90.4 fL (79-99); NEUTROPHILS % (AUTO) 48.3 % (40.0-77.0); PLATELET COUNT (AUTO) 251 K/uL (130-400); RED BLOOD CELL COUNT(AUTO) 3.94 MIL/uL (4.00-5.50); RED CELL DISTRIBUTION WIDTH 12.7 % (11.0-15.5); WHITE BLOOD COUNT (AUTO) 5.8 K/uL (4.8-10.8)
[2021-12-09 04:36] LABS: ALBUMIN 2.4 g/dL (3.5-5.0); BILIRUBIN,TOTAL 0.2 mg/dL (0.2-1.0); CREATININE 0.4 mg/dL (0.5-1.5); MAGNESIUM 1.7 mg/dL (1.80-2.40); POTASSIUM 3.7 mmol/L (3.5-5.1); TOTAL PROTEIN, SERUM 5.5 g/dL (6.0-8.3)
[2021-12-09] MEDS ORDERED: INSULIN GLARGINE 100 UNITS/ML 10 ML VIAL SQ SCH (06:00)
[2021-12-09] MEDS: INSULIN HUMULIN R 100 UNIT/ML 3ML SQ SCH ×4 (06:03→12:15)
[2021-12-09 07:20] VITALS: BP 123/59
[2021-12-09] MEDS: MAGNESIUM 2GM PREMIX 50ML 50 ML IV PRN (08:19)
[2021-12-09] MEDS: CEFTRIAXONE 2GM VIAL IVP SCH (08:20)
[2021-12-09] MEDS ORDERED: SYRI-1628 MC (08:42)
[2021-12-09] MEDS ORDERED: INSU10VI3 SQ ×2 (08:42)
[2021-12-09 10:45] VITALS: BP 110/69
== END 2021-12-09 12:25 | disposition home or self-care (01) | DRG 639 ==
LOC: EDH 06:31 → EDHIP 06:32 → 2CH 10:42
PROVIDERS: ADMIT Hospitalist; ATTEND Hospitalist
DX: E11.10 Type 2 diabetes mellitus with ketoacidosis without coma (principal); E86.1 Hypovolemia; E87.6 Hypokalemia; E86.0 Dehydration; Z98.51 Tubal ligation status; Z90.49 Acquired absence of other specified parts of digestive tract; Z82.49 Family history of ischemic heart disease and other diseases of the circulatory system; D72.810 Lymphocytopenia; D72.829 Elevated white blood cell count, unspecified; Z83.3 Family history of diabetes mellitus
CPT/HCPCS: 36415; 36600; 80048; 80053; 80305; 81001; 81025; 82010; 82803; 82948; 83036; 83605; 83690; 83735; 84100; 84145; 85025; 87040; 87324; 87507; 99291; G0378; J0696; J1815; J2405; J3475; J3480; J7042

== ENCOUNTER → 2025-01-25 | Emergency (ER) | payer SELFPAY ==
[~2025-01-25] VITALS: Ht 157.5 cm; Wt 68.9 kg
[~2025-01-25] MED LIST changes: -ATOR40TA69 PO; -CEFU500T67 PO; -CEPH500B PO; -FERR-82 PO; -GLIP5TAB11 PO; -INSU100C6 SQ; +INSU10VI3 SQ; -METF-526 PO; -NPH,100V SQ; +ONDA-243 PO; -PHEN-847 PO; -PNV1TABL17 PO; +SYRI-1628 MC
[2025-01-25] MEDS: LACTATED RINGERS 1000ML 1,000 ML IV ONE (09:38)
[2025-01-25 09:42] LABS: CREATININE 0.4 mg/dL (0.5-1.0); GLOMERULAR FILTR. RATE CALC 131.0 mL/min (>90); GLUCOSE,RANDOM 386.0 mg/dL (70-105); SODIUM SERUM 137.0 mmol/L (136-145); UREA NITROGEN, BLOOD 9.0 mg/dL (7-18)
[2025-01-25 09:44] LABS: IMMATURE GRANULOCYTE ABSOLUTE 0.09 K/uL (0-1); NUCLEATED RED BLOOD CELLS 0.0 % (0.0-0.19); PLATELET COUNT (AUTO) 314 K/uL (130-400); RED BLOOD CELL COUNT(AUTO) 4.84 MIL/uL (4.00-5.50); RED CELL DISTRIBUTION WIDTH 12.4 % (11.0-15.5); WHITE BLOOD COUNT (AUTO) 7.4 K/uL (4.8-10.8)
[2025-01-25 09:47] LABS: ASPARTATE AMINOTRANSFERASE 10.0 U/L (10-37); TOTAL PROTEIN, SERUM 9.0 g/dL (6.0-8.3)
[2025-01-25 09:49] LABS: APPEARANCE,URINE CLEAR (CLEAR); GLUCOSE, URINE (UA) >=1000 mg/dL (NEGATIVE); LEUKOCYTE ESTERASE ,URINE NEGATIVE Leu/uL (NEGATIVE); NITRATE,URINE 1+ (NEGATIVE); OCCULT BLOOD,URINE NEGATIVE (NEGATIVE)
[2025-01-25 09:51] LABS: ADD UA MICROSCOPIC YES
[2025-01-25 09:52] LABS: SQUAMOUS EPITHELIAL CELL,UR FEW /HPF (0-2)
--- NOTE | 2025-01-25 10:33 | ERN ---
General Chief Complaint: Abdominal Pain Stated Complaint: ABDOMINAL PAIN Time Seen by MD: 08:59 Source: patient History of Present Illness Initial Comments Is a 39-year-old female coming in complaining of abdominal pain. Per patient these symptoms began earlier today. She states that the there is some discomfort in his lower abdominal region as well as epigastric region. No fever no chills. Abdominal pain is accompanied with nausea and vomiting. Allergies: Coded Allergies: No Known Drug Allergies (Unverified Allergy, Unknown, 10/02/15) Home Meds Active Scripts Syringe-Needle,Insulin,0.5 ml ([place] Insulin Syringe) 1 Each Disp.syrin, EACH MC BID, #60 2 Refills Prov:LIZETH GUTIERREZ O OBEDIENCE TRAINER 12/09/21 Insuln Asp Prt/Insulin Aspart (Novolog Mix 70-30 Vial) 100 Unit/1 Ml Vial, 15 UNITS SQ HS for 30 Days, #3 VIAL 2 Refills Prov:LIZETH GUTIERREZ O OBEDIENCE TRAINER 12/09/21 Insuln Asp Prt/Insulin Aspart (Novolog Mix 70-30 Vial) 100 Unit/1 Ml Vial, 30 UNITS SQ AM for 30 Days, #3 VIAL 2 Refills Prov:LIZETH GUTIERREZ O OBEDIENCE TRAINER 12/09/21 Past Medical History Past Medical History: No Pertinent History Medical History Other: denies pmhx Past Surgical History: Cholecystectomy, Surgical History Other: TUBAL LIGATION 2019 Social History Social History: Lives with family, Other Female( History) LMP: Dec 09, 2024 ROS Dictation CONSTITUTIONAL: No chills, no fever, no weakness, no diaphoresis, no malaise. HEAD/FACE: No signs of trauma. EENT: No eye pain, no blurred vision, no tearing, no double vision, no ear pain, no ear discharge, no nose pain, no nasal congestion, no throat pain, no throat swelling, no mouth pain. RESPIRATORY: No cough, no orthopnea, no SOB, no stridor, no wheezing. CARDIOVASCULAR: No chest pain, no edema, no palpitations, no syncope. GASTROINTESTINAL/ABDOMINAL: abdominal pain, no constipation, no diarrhea, nausea, vomiting. GENITOURINARY: No abnormal discharge, no dysuria, no frequent urination, no hematuria. No complaints of pain in the genitals. MUSCULOSKELETAL: No back pain, no gout, no joint pain, no joint swelling, no muscle pain, no muscle stiffness, no neck pain. INTEGUMENTARY: No change in color, no change in hair/nails, no dryness, no lesion, no lumps, no rash. NEUROLOGICAL/PSYCH: No anxiety, not depressed, no emotional problem, no headache, no numbness, no pre-existing deficit, no history of seizures, no tremors, no weakness. HEMATOLOGIC/LYMPHATIC: Not anemic, no history of blood clots, no apparent bleeding, no bruising, glands not swollen. All Systems Negative, Except as Noted. Physical Exam Physical Exam Dictation VITAL SIGNS: Reviewed. GENERAL APPEARANCE: Alert, oriented x3, no acute distress, obese. HEAD AND FACE: Non-traumatic. EYES: PERRL, pink conjunctivas, eyelid no trauma, anterior chamber clear. EARS: Pinnas intact and no signs of trauma or erythema. Ear canals clear and no discharge. TMs no erythema. NOSE: No discharge, no bleeding. OROPHARYNX: Mouth normal, teeth no caries, tongue pink. Pharynx clear, no erythema. Tonsils no exudates, no abscesses noted. Mucous membrane moist. NECK: Supple, non-tender, no thyromegaly, no masses, no JVD, no bruits. BREAST: Deferred. CHEST: No tenderness, no crepitus, no paradoxical movement, no retractions. LUNGS: Clear, well-ventilated, symmetric, no rales, no wheezing, no rhonchi, no stridor, good breath sounds bilaterally. HEART: Regular rate, regular rhythm, no murmur, no gallops. VASCULAR: No peripheral edema. ABDOMEN: Soft, positive bowel sounds, nondistended, no guarding, lower abdominal tender, no rebound, no masses no hepatomegaly, no splenomegaly, no Wright's sign, no hernias. RECTAL: Deferred. GENITAL: Deferred. NEUROLOGICAL: Normal speech, gross motor function intact, gross sensory function intact. MUSCULOSKELETAL: Neck nontender, full range of motion, back nontender, full range of motion. EXTREMITIES: Nontender, full range of motion. SKIN: Color pink, dry, no turgor, no rash, no lacerations, no abrasions, no contusions. LYMPHATICS: Deferred. Results Laboratory and Microbiology Lab and Micro Result Laboratory Tests Test 01/25/25 09:17 01/25/25 09:29 01/25/25 11:05 White Blood Count 7.4 K/uL (4.8-10.8) Red Blood Count 4.84 MIL/uL (4.00-5.50) Hemoglobin 13.7 g/dL (12.0-16.0) Hematocrit 42.0 % (36-48) Mean Corpuscular Volume 86.8 fL (79-99) Mean Corpuscular Hemoglobin 28.3 pg (27.0-33.0) Mean Corpuscular Hemoglobin Concent 32.6 g/dL (32.0-36.0) Red Cell Distribution Width 12.4 % (11.0-15.5) Platelet Count 314 K/uL (130-400) Mean Platelet Volume 11.4 fL (7.5-10.5) H Immature Granulocyte % (Auto) 1.2 % (0-1) H Neutrophils (%) (Auto) 76.2 % (40.0-77.0) Lymphocytes (%) (Auto) 18.7 % (21.0-51.0) L Monocytes (%) (Auto) 3.5 % (3.0-13.0) Eosinophils (%) (Auto) 0.1 % (0.0-8.0) Basophils (%) (Auto) 0.3 % (0.0-5.0) Neutrophils # (Auto) 5.6 K/uL (1.8-7.7) Lymphocytes # (Auto) 1.4 K/uL (1.0-4.8) Monocytes # (Auto) 0.3 K/uL (0.1-1.0) Eosinophils # (Auto) 0.01 K/uL (0.00-0.70) Basophils # (Auto) 0.02 K/uL (0.00-0.20) Absolute Immature Granulocyte (auto 0.09 K/uL (0-1) Nucleated Red Blood Cells 0.0 % (0.0-0.19) Sodium Level 137 mmol/L (136-145) Potassium Level 3.7 mmol/L (3.5-5.1) Chloride Level 99 mmol/L (101-111) L Carbon Dioxide Level 26 mmol/L (21-32) Blood Urea Nitrogen 9 mg/dL (7-18) Creatinine 0.4 mg/dL (0.5-1.0) L Glomerular Filtration Rate Calc 131 mL/min (>90) Random Glucose 386 mg/dL (70-105) H Total Calcium 8.9 mg/dL (8.5-10.1) Total Bilirubin 0.4 mg/dL (0.2-1.0) Aspartate Amino Transf (AST/SGOT) 10 U/L (10-37) Alanine Aminotransferase (ALT/SGPT) 18 U/L (12-78) Alkaline Phosphatase 74 U/L (50-136) Troponin I High Sensitivity < 4 ng/L (4-50) L Total Protein 9.0 g/dL (6.0-8.3) H Albumin 4.2 g/dL (3.5-5.0) Lipase 26 U/L (16-77) Urine Color STRAW (YELLOW) Urine Appearance CLEAR (CLEAR) Urine pH 6.0 (5.0-8.0) Urine Specific [place] 1.032 (1.001-1.031) Urine Protein NEGATIVE mg/dL (NEGATIVE) Urine Glucose (UA) >=1000 mg/dL (NEGATIVE) H Urine Ketones 100 mg/dL (NEGATIVE) H Urine Occult Blood NEGATIVE (NEGATIVE) Urine Nitrate 1+ (NEGATIVE) H Urine Bilirubin NEGATIVE mg/dL (NEGATIVE) Urine Urobilinogen 0.2 mg/dL (0.2-1.0) Urine Leukocyte Esterase NEGATIVE [place]/uL Urine RBC 0-1 /HPF (0-1) Urine WBC 6-10 /HPF (0-1) H Urine Squamous Epithelial Cells FEW /HPF (0-2) Urine Bacteria FEW /HPF (None Seen) Urine HCG, Qualitative NEGATIVE (NEGATIVE) Urine Opiates Screen NEGATIVE (NEGATIVE) Urine Barbiturates Screen NEGATIVE (NEGATIVE) Urine Phencyclidine Screen NEGATIVE (NEGATIVE) Urine Amphetamines Screen NEGATIVE (NEGATIVE) Urine Benzodiazepines Screen NEGATIVE (NEGATIVE) Urine Cocaine Screen NEGATIVE (NEGATIVE) Urine Marijuana (THC) Screen NEGATIVE (NEGATIVE) Blood Gas Specimen Type Arterial Arterial Blood pH 7.356 (7.350-7.450) Arterial Blood Partial Pressure CO2 32 mmHg (32-45) Arterial Blood Partial Pressure O2 102.4 mmHg (83.0-108.0) Arterial Blood HCO3 17.4 mmol/L (21.0-28.0) L Arterial Blood Oxygen Saturation 97.5 % (94.0-98.0) Arterial Blood Base Excess -7.0 mmol/L (-2.0-3.0) L Hemoglobin (Blood Gas) 13.1 g/dL (12.0-16.0) Sodium (Blood Gas) 136 MMOL/L (136-145) Bedside Potassium (Blood Gas) 3.9 MMOL/L (3.4-4.5) Bedside Chloride (Blood Gas) 102 MMOL/L (98-107) Bedside Glucose (Blood Gas) 345 MG/DL (65-95) H Bedside Ionized Calcium (Blood Gas) 1.17 MMOL/L (1.15-1.33) Bedside Lactic Acid (Blood Gas) 0.91 MMOL/L (0.36-0.75) H Blood Gas Temperature 37.0 CELSIUS (35.5-37.0) Blood Gas Vent Mode ROOM AIR (ROOM AIR) FiO2 21.0 % Blood Gas Specimen Comment RR SALINA Labs Reviewed?: Yes EKG/XRAY/US/CT/MRI EKG Comment 01/25/2025 time 9:40 a.m. Ventricular rate 75 Sinus rhythm [place] [address] wave elevation or depression CT Scan Comment [address] [place] [address] IMAGING REPORT Signed PATIENT: RAEANN PITT MR#: [id number] : 1985 SEX: F AGE: 39 LOCATION: [facility] ORDER [id number] STATUS: [facility] REPORT#: [id number] SERVICE 1054 REASON: abd pain ORDERING PHYSICIAN: GABRIELA CEVALLOS MD PROCEDURE: ABD PEL WO - CT ABDOMEN/PELVIS W/O CONTRAST CT ABDOMEN/PELVIS W/O CONTRAST REASON: abd pain COMPARISON: None. FINDINGS: Lung bases are clear. There are no focal liver lesions. There are normal-appearing kidneys.. Spleen and pancreas appear unremarkable. The gallbladder is surgically absent with clips in the gallbladder fossa.. Bowel loops appear unremarkable. This includes normal appearance of the appendix There is no evidence of free fluid or intraperitoneal air. There are no focal fluid collections. Aorta and retroperitoneum appear normal as do pelvic soft tissue structures. The anterior abdominal wall is intact. Osseous structures appear unremarkable. There is a surgical clips seen near the dome of the diaphragm. The uterus is deviated towards the left side. The visualized structures appears to be normal. IMPRESSION: 1. Negative noncontrast CT abdomen and pelvis. CT was performed with one or more following dose reduction techniques: automated exposure control, adjustment of the mA and kv according to patient's size, or use of a iterative reconstruction technique. DICTATED BY: NEGRITA MCKEE MD DATE: 01/25/25 1148 ELECTRONICALLY SIGNED BY: NEGRITA MCKEE MD DATE: 01/25/25 1152 MDM MDM: Differential diagnosis: Gastroenteritis, gastritis, appendicitis, Rationale: Tests considered and ordered secondary to shared decision making include: Previous outside records reviewed: Old ER visits. Risk of complication and/or morbidity or mortality of patient management: None Medications-Per medication reconciliation Need for hospitalization: Patient does not meet criteria for hospitalization. Patient is a 39-year-old female coming in complaining of abdominal pain. Laboratory workup within normal limits CT of the abdomen did not disclose acute findings. Due to the location and the acuteness as well as severity of the pain and CT head to be ordered which did not disclose acute findings. Patient received medication for symptomatic relief and states he feels much better. Patient also has a history of DKA in this case that has within normal limits. Patient was hydrated states he feels better. ED Course Orders Procedure Category Date Status Time Cbc With Differential LAB 01/25/25 Complete 09:27 Comprehensive LAB 01/25/25 Complete Metabolic Panel 09:27 Troponin I High LAB 01/25/25 Complete Sensitivity 09:27 Urinalysis Profile LAB 01/25/25 Complete 09:27 12 Lead Ekg Tracing- EKG 01/25/25 Complete Technical 09:27 Lactated Ringers PHA 01/25/25 Complete 1000ml (Lactated 09:30 Pantoprazole 40mg Inj PHA 01/25/25 Complete (Protonix 40mg Inj 09:30 Lipase LAB 01/25/25 Complete 09:27 Culture Urine ADELINE 01/25/25 In Process 09:51 ,Urine Test LAB 01/25/25 Complete 10:02 Drug Screen Urine LAB 01/25/25 Complete 10:02 Ondansetron 4mg Inj PHA 01/25/25 Complete (Zofran 4mg Inj) 10:30 Arterial Blood Gas + RT 01/25/25 Transmitted 10:54 Ct Abdomen/Pelvis W/O CT 01/25/25 Resulted Contrast 10:54 Arterial Blood Gas LAB 01/25/25 Complete Arterial + 11:05 Current Medications Medications (Trade) Dose Ordered Sig/Neva Route PRN Reason Start Time Stop Time Status Last Admin Dose Admin Lactated Ringer's 1,000 ml @ 0 mls/hr ONCE ONCE IV 01/25/25 09:30 01/25/25 09:31 DC 01/25/25 09:38 Ondansetron HCl (zoFRAN 4MG INJ) 4 mg ONCE ONCE IVP 01/25/25 10:30 01/25/25 10:31 DC 01/25/25 10:24 Pantoprazole Sodium (PROTonix 40MG INJ) 40 mg ONCE ONCE IVP 01/25/25 09:30 01/25/25 09:31 DC 01/25/25 09:37 Vital Signs Date Time Temp Pulse Resp B/P (MAP) Pulse Ox O2 Delivery O2 Flow Rate FiO2 01/25/25 10:04 97.5 72 14 159/90 97 Room Air* 0 01/25/25 09:09 98.4 76 12 148/90 99 Room Air* 0 01/25/25 09:01 97.3 83 16 173/86 100 Room Air* 0 01/25/25 08:58 97.3 83 18 100 Room Air 0 DX & DISP Disposition: Discharge Departure Impression: Primary Impression: Acute hyperglycemia Additional Impression: Viral gastroenteritis Condition: Stable Scripts Ondansetron (Ondansetron Odt) 4 Mg Tab.rapdis 1 TAB PO BID PRN for nausea/vomiting for 3 Days, #6 TAB 0 Refills Prov: GABRIELA CEVALLOS MD 01/25/25 Additional Instructions: FOLLOW-UP WITH PRIMARY CARE PROVIDER IN 1 TO 2 DAYS. TAKE MEDICATIONS DIRECTED HERE IN THE EMERGENCY ROOM. OKAY TO CONTINUE HOME MEDICATIONS UNLESS OTHERWISE DISCUSSED DURING YOUR VISIT IN THE EMERGENCY ROOM TODAY. RETURN TO YOUR NEAREST EMERGENCY ROOM IF SYMPTOMS WORSEN OR IF THERE IS NO IMPROVEMENT. CALL 911 IF YOU NEED IMMEDIATE ASSISTANCE. TAKE TYLENOL [id number] NEEDED AND IF NO CONTRAINDICATIONS ARE PRESENT. INCREASE ORAL HYDRATION. A WOUND CULTURE OR URINE CULTURE WAS ORDERED HERE IN THE EMERGENCY ROOM DEPARTMENT PLEASE FOLLOW-UP WITH PRIMARY CARE PROVIDER AND ADVISE THEM TO GET REPORTS FROM OUR FACILITY. IF YOU HAD ANY [place] WRAP/SPLINTS THAT WERE APPLIED HERE, PLEASE DO NOT REMOVE THEM UNTIL YOU SEE YOUR PRIMARY CARE OR SPECIALTY. Referrals: Referrals: SELF,REFERRAL (PCP) NATALI MCDOWELL MD Time of Disposition: 11:59 GABRIELA CEVALLOS MD Jan 25, 2025 10:33
[2025-01-25 10:40] LABS: HCG,QUALITATIVE URINE NEGATIVE (NEGATIVE)
[2025-01-25 10:46] LABS: AMPHET/METH SCREEN,URINE NEGATIVE (NEGATIVE); BARBITURATE SCREEN, URINE NEGATIVE (NEGATIVE); CANNABINOID SCREEN,URINE NEGATIVE (NEGATIVE); COCAINE SCREEN,URINE NEGATIVE (NEGATIVE)
--- NOTE | 2025-01-25 10:46 | EKG ---
[facility] Test Date: 2025-01-25 Test Time: 09:40:16 Pat Name: RAEANN PITT Department: ED Room: Gender: F Bioinformatics Analyst: [id number] : 1985 Requested By: GABRIELA CEVALLOS Order Number: [id number] Reading MD: Castillo Moralez Measurements Intervals [place] Rate: 75 P: 47 MS: 146 QRS: 35 QRSD: 87 T: 17 QT: 424 QTc: 473 Interpretive Statements Sinus rhythm No previous ECG available for comparison Electronically Signed On 01-27-2025 23:57:52 CDT by Castillo Moralez Please click the below link to view image of tracing.
[2025-01-25 11:07] LABS: ABG BASE EXCESS -7.0 mmol/L (-2.0-3.0); ABG HCO3 17.4 mmol/L (21.0-28.0); ABG OXYGEN SATURATION 97.5 % (94.0-98.0); ABG PCO2 32 mmHg (32-45); ABG PH 7.356 (7.350-7.450); CARBON MONOXIDE 1.4 % (0.5-1.5); DEVICE COMMENT RR OSCAR; PO2, ARTERIAL BG 102.4 mmHg (83.0-108.0); TEMPERATURE, CELSIUS BG 37.0 CELSIUS (35.5-37.0); VENT MODE, BG ROOM AIR (ROOM AIR)
--- NOTE | 2025-01-25 11:52 | HMCIMG ---
CT ABDOMEN/PELVIS W/O CONTRAST REASON: abd pain COMPARISON: None. FINDINGS: Lung bases are clear. There are no focal liver lesions. There are normal-appearing kidneys.. Spleen and pancreas appear unremarkable. The gallbladder is surgically absent with clips in the gallbladder fossa.. Bowel loops appear unremarkable. This includes normal appearance of the appendix There is no evidence of free fluid or intraperitoneal air. There are no focal fluid collections. Aorta and retroperitoneum appear normal as do pelvic soft tissue structures. The anterior abdominal wall is intact. Osseous structures appear unremarkable. There is a surgical clips seen near the dome of the diaphragm. The uterus is deviated towards the left side. The visualized structures appears to be normal. IMPRESSION: 1. Negative noncontrast CT abdomen and pelvis. CT was performed with one or more following dose reduction techniques: automated exposure control, adjustment of the mA and kv according to patient's size, or use of a iterative reconstruction technique.
[2025-01-25 12:42] VITALS: BP 137/83; PULSE 77; RESP 17; TEMP 97.8; O2SAT 99
--- NOTE | 2025-01-25 12:43 | NUR ---
DC PATIENT WAS DC'D BY DR CEVALLOS TODAY I DC'D PATIENTS IV WITH CATH STILL INTACT AND APPLIED 2X2 GAUZE WITH COBAN I EXPLAINED TO PATIENT TO FOLLOW UP WITH PCP, PROVIDED INFO BASED ON DIAGNOSIS AND EXPLAINED NEW PRESCRIPTIONS AND HOW TO TAKE THEM I ALSO ANSWERED ANY FURTHER QUESTIONS THE PATIENT HAD, PATIENT AMBULATED OUT OF ED, NO COMPLICATIONS
== END ==
LOC: EDH 08:57
DX: A08.4 Viral intestinal infection, unspecified (principal); R73.9 Hyperglycemia, unspecified; Z90.49 Acquired absence of other specified parts of digestive tract; Z98.51 Tubal ligation status
CPT/HCPCS: 99285; 74176; 96374; 96361; 96375; 82947; 84484; 80053; 82803; 80305; 83690; 85025; 87086 ×2; 87186; 83605; 81025; 36415; 93005; 36600; 82435; 84132; 84295; 81001; 82948; 85018; J1815; J7120; J2405; J2470

== ENCOUNTER 2025-01-30 15:50 | Inpatient (IN) | payer SELFPAY ==
[~2025-01-30] VITALS: Ht 165.1 cm; Wt 68.9 kg
[~2025-01-30 15:50] MED LIST changes: -INSU10VI3 SQ; +NOREPINEPHRIN 4MG/NS 250ML 250 ML IV ONE; -ONDA-243 PO; -SYRI-1628 MC
[2025-01-30 16:21] LABS: IMMATURE GRANULOCYTE ABSOLUTE 0.02 K/uL (0-1); NUCLEATED RED BLOOD CELLS 0.0 % (0.0-0.19); PLATELET COUNT (AUTO) 383 K/uL (130-400); RED BLOOD CELL COUNT(AUTO) 4.74 MIL/uL (4.00-5.50); RED CELL DISTRIBUTION WIDTH 12.8 % (11.0-15.5); WHITE BLOOD COUNT (AUTO) 5.2 K/uL (4.8-10.8)
[2025-01-30 16:35] LABS: CREATININE 0.3 mg/dL (0.5-1.0); GLOMERULAR FILTR. RATE CALC 140.0 mL/min (>90); GLUCOSE,RANDOM 151.0 mg/dL (70-105); SODIUM SERUM 137.0 mmol/L (136-145); UREA NITROGEN, BLOOD 8.0 mg/dL (7-18)
--- NOTE | 2025-01-30 16:48 | ERN ---
ED Note History of Present Illness Stated Complaint: NAUSEA, VOMITING Chief Complaint: Nausea,Vomiting,Diarrhea Time Seen by MD: 15:54 Time Seen by Midlevel: 15:58 Dictation: PATIENT IS A 39-YEAR-OLD DIABETIC FEMALE COMING IN TODAY WITH NAUSEA VOMITING UNABLE TO KEEP ANY FOOD DOWN FOR THE LAST TWO DAYS. SHE STATES SHE HAS HAD NO FEVER NO CHILLS NO DIARRHEA. STATES SHE DOES HAVE A HISTORY OF DKA AND WAS JUST RELEASED FROM [facility] [place] FOR THE SAME COMPLAINT. SHE SAID HER BLOOD SUGAR HAS BEEN CONTROLLED, AND HAS BEEN COMPLIANT WITH THE MEDICATIONS SINCE DISCHARGE BLOOD SUGAR THIS MORNING WAS 146 PER PATIENT. Allergies: Coded Allergies: No Known Drug Allergies (Unverified Allergy, Unknown, 10/02/15) Home Meds Discontinued Scripts Ondansetron (Ondansetron Odt) 4 Mg Tab.rapdis, 1 TAB PO BID PRN for nausea/vomiting for 3 Days, #6 TAB 0 Refills Prov:GABRIELA CEVALLOS MD 01/25/25 Syringe-Needle,Insulin,0.5 ml (Caretouch Insulin Syringe) 1 Each Disp.syrin, EACH MC BID, #60 2 Refills Prov:LIZETH GUTIERREZ COAT PADDER 12/09/21 Insuln Asp Prt/Insulin Aspart (Novolog Mix 70-30 Vial) 100 Unit/1 Ml Vial, 15 UNITS SQ HS for 30 Days, #3 VIAL 2 Refills Prov:LIZETH GUTIERREZ COAT PADDER 12/09/21 Insuln Asp Prt/Insulin Aspart (Novolog Mix 70-30 Vial) 100 Unit/1 Ml Vial, 30 UNITS SQ AM for 30 Days, #3 VIAL 2 Refills Prov:LIZETH GUTIERREZ COAT PADDER 12/09/21 Past Medical History Past Medical History: Diabetes-Type II, Other Additional Past Medical Hx: DKA Surgical History: Cholecystectomy, Surgical History Other: TUBAL LIGATION 2020 Social History: Lives with family, Other History: Not Applicable RN Note Reviewed/Agreed w/PFSH: Yes Review of System Dictation CONSTITUTIONAL: NEGATIVE EXCEPT FOR HPI HEAD/FACE: NEGATIVE EXCEPT FOR HPI EENT: NEGATIVE EXCEPT FOR HPI RESPIRATORY: NEGATIVE EXCEPT FOR HPI GASTROINTESTINAL/ABDOMINAL: NEGATIVE EXCEPT FOR HPI NAUSEA VOMITING GENITOURINARY: NEGATIVE EXCEPT FOR HPI MUSCULOSKELETAL: NEGATIVE EXCEPT FOR HPI INTEGUMENTARY: NEGATIVE EXCEPT FOR HPI NEUROLOGICAL/PSYCH: NEGATIVE EXCEPT FOR HPI HEMATOLOGIC/LYMPHATIC: NEGATIVE EXCEPT FOR HPI ALL SYSTEMS NEGATIVE, EXCEPT NOTED ABOVE. 13 POINT REVIEW OF SYSTEMS ASSESSED AND ALL NEGATIVE EXCEPT FOR ABOVE. Initial Vital Sign VS Vital Signs Date Time Temp Pulse Resp B/P (MAP) Pulse Ox O2 Delivery O2 Flow Rate FiO2 01/30/25 15:51 99.3 83 18 121/82 Room Air 01/30/25 16:24 100 0 21 Physical Exam Dictation VITAL SIGNS REVIEWED GENERAL APPEARANCE: ALERT, ORIENTED X 3, MILD ACUTE DISTRESS, WELL DEVELOPED, NOURISHED. HEAD AND FACE: NON-TRAUMATIC. EYES: PERRL, PINK CONJUNCTIVAS, EYELID NO TRAUMA, ANTERIOR CHAMBER WITH ARCUS SENILIS. EARS: PINNAS INTACT AND NO SIGNS OF TRAUMA OR ERYTHEMA EAR CANALS CLEAR AND NO DISCHARGE TM NO ERYTHEMA NOSE: NO DISCHARGE, NO BLEEDING. OROPHARYNX: MOUTH NORMAL, TONGUE PINK, PHARYNX CLEAR,NO ERYTHEMA, TONSILS NO EXUDATES, NO ABSCESSES NOTED, MUCOUS ME MBRANE MOIST NECK: SUPPLE, NON-TENDER, NO THYROMEGALY, NO MASSES, NO JVD, NO BRUITS BREAST:DEFERRED CHEST:NO TENDERNESS, NO CREPITUS, NO PARADOXICAL MOVEMENT, NO RETRACTIONS LUNGS:CLEAR, WELL-VENTILATED, SYMMETRIC, NO RALES, NO WHEEZING, NO RHONCHI, NO STRIDOR, GOOD BREATH SOUNDS BILATERALLY HEART: REGULAR RATE, REGULAR RHYTHM, NO MURMUR, NO GALLOPS VASCULAR: NO PERIPHERAL EDEMA, ABDOMEN: SOFT, POSITIVE BOWEL SOUNDS, NONDISTENDED, NO GUARDING, NONTENDER, NO REBOUND, NO MASSES NO HEPATOMEGALY, NO SPLENOMEGALY, NO HERMOSILLO'S SIGN, NO HERNIAS. NO FOCAL PAIN RECTAL: DEFERRED GENITAL: DEFERRED NEUROLOGICAL: NORMAL SPEECH, MOTOR FUNCTION INTACT, SENSORY FUNCTION INTACT MUSCULOSKELETAL: NECK NONTENDER, FULL RANGE OF MOTION, BACK NONTENDER, FULL RANGE OF MOTION, EXTREMITIES: NONTENDER, FULL RANGE OF MOTION SKIN: COLOR PINK, DRY, NO TURGOR, NO RASH, NO LACERATIONS, NO ABRASIONS, NO CONTUSIONS. LYMPHATIC: DEFERRED Results (Laboratory/Radiology) Laboratory/Radiology Laboratory Tests Test 01/30/25 16:10 01/30/25 20:55 01/30/25 21:22 01/31/25 05:56 White Blood Count 5.2 K/uL (4.8-10.8) 4.5 K/uL (4.8-10.8) L Red Blood Count 4.74 MIL/uL (4.00-5.50) 3.60 MIL/uL (4.00-5.50) #L Hemoglobin 13.3 g/dL (12.0-16.0) 10.2 g/dL (12.0-16.0) #L Hematocrit 40.7 % (36-48) 31.0 % (36-48) #L Mean Corpuscular Volume 85.9 fL (79-99) 86.1 fL (79-99) Mean Corpuscular Hemoglobin 28.1 pg (27.0-33.0) 28.3 pg (27.0-33.0) Mean Corpuscular Hemoglobin Concent 32.7 g/dL (32.0-36.0) 32.9 g/dL (32.0-36.0) Red Cell Distribution Width 12.8 % (11.0-15.5) 13.0 % (11.0-15.5) Platelet Count 383 K/uL (130-400) 308 K/uL (130-400) Mean Platelet Volume 10.0 fL (7.5-10.5) 10.6 fL (7.5-10.5) H Immature Granulocyte % (Auto) 0.4 % (0-1) 0.2 % (0-1) Neutrophils (%) (Auto) 55.1 % (40.0-77.0) 33.3 % (40.0-77.0) L Lymphocytes (%) (Auto) 34.4 % (21.0-51.0) 54.0 % (21.0-51.0) H Monocytes (%) (Auto) 9.5 % (3.0-13.0) 11.4 % (3.0-13.0) Eosinophils (%) (Auto) 0.2 % (0.0-8.0) 0.7 % (0.0-8.0) Basophils (%) (Auto) 0.4 % (0.0-5.0) 0.4 % (0.0-5.0) Neutrophils # (Auto) 2.9 K/uL (1.8-7.7) 1.5 K/uL (1.8-7.7) L Lymphocytes # (Auto) 1.8 K/uL (1.0-4.8) 2.4 K/uL (1.0-4.8) Monocytes # (Auto) 0.5 K/uL (0.1-1.0) 0.5 K/uL (0.1-1.0) Eosinophils # (Auto) 0.01 K/uL (0.00-0.70) 0.03 K/uL (0.00-0.70) Basophils # (Auto) 0.02 K/uL (0.00-0.20) 0.02 K/uL (0.00-0.20) Absolute Immature Granulocyte (auto 0.02 K/uL (0-1) 0.01 K/uL (0-1) Nucleated Red Blood Cells 0.0 % (0.0-0.19) 0.0 % (0.0-0.19) Sodium Level 137 mmol/L (136-145) 138 mmol/L (136-145) Potassium Level 3.0 mmol/L (3.5-5.1) *L 3.3 mmol/L (3.5-5.1) L Chloride Level 100 mmol/L (101-111) L 105 mmol/L (101-111) Carbon Dioxide Level 31 mmol/L (21-32) 29 mmol/L (21-32) Blood Urea Nitrogen 8 mg/dL (7-18) 5 mg/dL (7-18) L Creatinine 0.3 mg/dL (0.5-1.0) L 0.3 mg/dL (0.5-1.0) L Glomerular Filtration Rate Calc 140 mL/min (>90) 140 mL/min (>90) Random Glucose 151 mg/dL (70-105) H 99 mg/dL (70-105) Whole Blood Ketones Quantitative 1.4 mmol/L (0.0-0.6) H Total Calcium 9.3 mg/dL (8.5-10.1) 8.1 mg/dL (8.5-10.1) L Lipase 26 U/L (16-77) Whole Blood Glucose 87 MG/DL (70-110) Urine Color LIGHT-YELLOW (YELLOW) Urine Appearance CLEAR (CLEAR) Urine pH 6.5 (5.0-8.0) Urine Specific [place] 1.005 (1.001-1.031) Urine Protein NEGATIVE mg/dL (NEGATIVE) Urine Glucose (UA) >=1000 mg/dL (NEGATIVE) H Urine Ketones 20 mg/dL (NEGATIVE) H Urine Occult Blood NEGATIVE (NEGATIVE) Urine Nitrate NEGATIVE (NEGATIVE) Urine Bilirubin NEGATIVE mg/dL (NEGATIVE) Urine Urobilinogen 0.2 mg/dL (0.2-1.0) Urine Leukocyte Esterase NEGATIVE Claudette/uL Urine RBC None /HPF (0-1) Urine WBC 2-5 /HPF (0-1) H Urine Squamous Epithelial Cells RARE /HPF (0-2) Urine Bacteria None /HPF (None Seen) Urine HCG, Qualitative NEGATIVE (NEGATIVE) Hemoglobin A1c 12.3 % (4.0-6.0) H Estimated Average Glucose (eAG) 306 mg/dL (70-126) H Phosphorus Level 4.6 mg/dL (2.5-4.9) Magnesium Level 1.60 mg/dL (1.80-2.40) L Test 01/31/25 06:22 Whole Blood Glucose 95 MG/DL (70-110) Labs Reviewed?: Yes ED Course ED Course Orders Procedure Category Date Status Time Ketone Blood LAB 01/30/25 Complete Quantitative 16:06 Cbc With Differential LAB 01/30/25 Complete 16:06 ,Urine Test LAB 01/30/25 Complete 16:06 Urinalysis Profile LAB 01/30/25 Complete 16:06 0.9%Nacl 1000ml (Ns PHA 01/30/25 Complete 1000ml) 16:30 Ondansetron 4mg Inj PHA 01/30/25 Complete (Zofran 4mg Inj) 16:30 Lipase LAB 01/30/25 Complete 16:06 Basic Metabolic Panel LAB 01/30/25 Complete 16:06 Potassium Bicarb/Cit PHA 01/30/25 Complete Ac 25meq (K-Lyte Ta 17:00 Edm Admit Bridge Order ADM 01/30/25 Transmitted 18:30 Admit Orders ADM 01/30/25 Transmitted 18:30 Admit Orders ADM 01/30/25 Transmitted 18:43 Keep Patient Npo CPOE 01/30/25 Transmitted 18:43 Initiate Npo LUTHER 01/30/25 In Process Hypokalemia Sushila 19:08 Potassium Chloride PHA 01/30/25 In Process 20meq/100ml (Potassiu 19:30 Notify Physician If CPOE 01/30/25 Transmitted There Is 19:08 Notify Md On The Next CPOE 01/30/25 Transmitted 19:08 Notify Md On The CPOE 01/30/25 Transmitted Next(Cont.) 19:08 Magnesium 2gm Premix PHA 01/30/25 In Process 50ml (Magnesium 2gm 19:30 Initiate LUTHER 01/30/25 In Process Hyperglycemia Protoco 19:08 Insulin Regular, PHA 01/30/25 In Process Human 3ml (Humulin R 21:00 Hemoglobin A1c LAB 01/31/25 Complete 04:00 Basic Metabolic Panel LAB 01/31/25 Complete 04:00 Cbc With Differential LAB 01/31/25 Complete 04:00 Magnesium LAB 01/31/25 Complete 04:00 Phosphorus LAB 01/31/25 Complete 04:00 Activity: Ad Jennifer CPOE 01/30/25 Transmitted 20:01 Apply Knee High Teds CPOE 01/30/25 Transmitted 20:01 Apply Scds CPOE 01/30/25 Transmitted 20:01 Condition: CPOE 01/30/25 Transmitted 20:01 Nurse To Enter Home CPOE 01/30/25 Transmitted Medication 20:01 Oxygen By Nc/Pulse Ox CPOE 01/30/25 Transmitted 20:01 Telemetry Monitoring CPOE 01/30/25 Transmitted 20:01 Vital Signs(Adult CPOE 01/30/25 Transmitted Hospitalist) 20:01 Lactated Ringers PHA 01/30/25 In Process 1000ml (Lactated 20:30 Enoxaparin Sodium 40 PHA 01/31/25 In Process Mg/0.4 Ml (Lovenox) 09:00 Famotidine 20mg Vial PHA 01/31/25 In Process (Pepcid 20mg Vial) 09:00 Hydralazine 20mg Inj PHA 01/30/25 In Process (Apresoline 20mg In 20:30 Ondansetron 4mg Inj PHA 01/30/25 In Process (Zofran 4mg Inj) 20:30 Morphine 2mg Syg PHA 01/30/25 In Process (Morphine 2mg Syg) 20:30 Current Medications Medications (Trade) Dose Ordered Sig/Neva Route PRN Reason Start Time Stop Time Status Last Admin Dose Admin Ondansetron HCl (zoFRAN 4MG INJ) 4 mg ONCE ONCE IVP 01/30/25 16:30 01/30/25 16:31 DC 01/30/25 16:49 Potassium Bicarbonate (K-Lyte Tablet Eff 25 Meq Tablet.eff) 25 meq ONCE ONCE PO 01/30/25 17:00 01/30/25 17:01 DC 01/30/25 17:07 Sodium Chloride 1,000 ml @ 0 mls/hr ONCE ONCE IV 01/30/25 16:30 01/30/25 16:31 DC 01/30/25 16:49 Vital Signs Date Time Temp Pulse Resp B/P (MAP) Pulse Ox O2 Delivery O2 Flow Rate FiO2 01/31/25 05:34 60 16 99/57 98 Room Air* 0 01/31/25 03:45 59 17 90/66 98 Room Air* 0 01/31/25 00:57 63 17 101/60 99 Room Air* 0 01/30/25 22:57 63 16 96/60 99 Room Air* 0 01/30/25 19:33 98.8 68 17 110/63 99 Room Air* 0 01/30/25 18:56 74 16 129/68 99 Room Air* 0 01/30/25 16:24 72 18 134/86 100 Room Air* 0 01/30/25 15:51 99.3 83 18 121/82 Room Air 1742/patient feels markedly improved after treatment. She is aware that she has a euglycemic DKA we will be admitted to the hospital for dehydration ketoacidosis and hypokalemia. So intractable vomiting. She agrees to [id number]/SPOKE WITH LUIS ENRIQUE RODRIGUEZ [facility] HOSPITALIST REVIEWED LABS INTERVENTIONS FOR INTRACTABLE NAUSEA VOMITING KETONES. HE AGREED TO ADMIT. Medical Decision Making MDM MDM: Differential diagnosis: DKA/sepsis/electrolyte imbalance/dehydration/UTI Rationale: Tests considered and ordered secondary to shared decision making include: labs, Previous outside records reviewed: Old ER visits. Risk of complication and/or morbidity or mortality of patient management: None Medications-Per medication reconciliation Need for hospitalization: Patient does meet criteria for hospitalization. Re hydration electrolyte stabilization and ketone management Need for emergency major/minor surgery: No There are no social concerns with this patient. Prescription drug management Prescriptions will include symptomatic care Patient's prior external medical records from other ER visits were reviewed by me as indicated. Prior testing and results from previous visits were reviewed. Prior tests were taken into account with medical decision making and resource utilization, independent historian/historians were used to obtain complete medical history. I independently interpreted the test that were performed, results were reviewed by me and considered findings on radiology if ordered. Medical management and examination interpretation discussions were had by me with other qualified healthcare professionals as indicated for the patient's care. DX & DISP Disposition: Inpatient Decision to Admit Time: 17:42 Departure Impression: Primary Impression: Intractable nausea and vomiting Additional Impressions: Hypokalemia, Dehydration, Hypochloremia, Elevated blood ketone body level Condition: Stable Scripts No Active Prescriptions or Reported Meds Referrals: SELF,REFERRAL (PCP) Time of Disposition: 17:42 I have reviewed the case, and I agree with, Diagnosis and Plan ZAID COLES NP Jan 30, 2025 16:48 MOUNIKA SCHAEFER DO Jan 31, 2025 08:01
[2025-01-30] MEDS: 0.9%NACL 1000ML 1,000 ML IV ONE (16:49)
--- NOTE | 2025-01-30 18:44 | HP ---
History of Present Illness Reason for Visit: nausea/vomiting Referring MD: Self-referral History of Present Illness Ms. Flores is a 39-year-old female that was seen and examined today on 01/30/2025. Patient is a good historian of personal health. Patient reports that she came to the emergency department with a chief complaint of nausea and vomiting. Onset was three days ago. Location is abdomen. Duration is on and off. Character is described as watery. There was no alleviating factors. Symptoms are aggravated with the in food or drinking fluid. Patient denies any associated diarrhea, fever, chills. Today in the emergency department CBC unremarkable, potassium 3.0, no urinalysis has been collected or sent to lab, ketones mildly elevated at 1.4. Emergency room physician recommended that patient be admitted with a diagnosis of intractable nausea and vomiting. Past Medical History Patient History: Diabetes mellitus MOTHER, Onset: - FATHER, Onset: - SISTER, Onset: - Hypertension MOTHER, Onset: - FATHER, Onset: - ADDITIONAL PAST MEDICAL HISTORY: [Diabetes mellitius type2] SOCIAL HISTORY: [Negative for smoking, alcohol use, drug use. Patient lives with the , Stas [place]. Patient is typically independent of her ADLs. Patient denies difficulty paying her bills.] SURGICAL HISTORY: [ section x6, cholecystectomy] Review of Systems General: No Fever, No Chills, No Night Sweats, No Fatigue, No Malaise, No Appetite, No Other HEENT: No Head Aches, No Visual Changes, No Eye Pain, No Ear Pain, No Dysphasia, No Sinus Congestion, No Post Nasal Drip, No Sore Throat, No Other Pulmonary: No Dyspnea, No Cough, No Pleuritic Chest Pain, No Other Cardiovascular: No: Chest Pain, Palpitations, Orthopnea, Paroxysmal Noc. Dyspnea, Edema, Lt Headedness, Other Gastrointestinal: Nausea, Vomiting; No: Abdominal Pain, Diarrhea, Constipation, Melena, Hematochezia, Other Genitourinary: No Dysuria, No Frequency, No Incontinence, No Hematuria, No Retention, No Other Musculoskeletal: No: other, neck pain, shoulder pain, arm pain, back pain, hand pain, leg pain, foot pain Skin: No Urticaria, No Rash, No Other Neurological: No: Weakness, Numbness, Incoordination, Change in speech, Confusion, Seizures, Other Allergies: Coded Allergies: No Known Drug Allergies (Unverified Allergy, Unknown, 10/02/15) No Active Prescriptions or Reported Meds Exam Vital Signs Vital Signs Date Time Temp Pulse Resp B/P (MAP) Pulse Ox O2 Delivery O2 Flow Rate FiO2 01/30/25 16:24 72 18 134/86 100 Room Air* 0 21 01/30/25 15:51 99.3 General Appearance: Alert, Oriented X3, Cooperative, mild distress HEENT: Atraumatic, EOMI Respiratory: Clear to auscultation, Normal air movement, NL respiratory effort Cardiovascular: Regular rate, Regular rhythm, Normal S1, Normal S2 Abdominal: Normal bowel sounds, Soft, No tenderness Extremities: No edema Skin: No significant lesion Neuro: Normal speech, Strength at 5/5 X4 ext, Sensation intact, Cranial nerves 3-12 NL Psych/Mental Status: Mental status NL, Mood NL, Thoughts/Content NL Assessment/Plan ASSESSMENT: [ Intractable nausea, vomiting, POA Hypokalemia, POA Diabetes mellitius type2] PLAN: [ Admit patient to medical floor as inpatient status. Place patient on telemetry monitoring. Intractable nausea, vomiting: As-needed Zofran. Keep patient NPO. GI rest times 24 hours. Consider advancing diet to clear liquid diet once patient is no longer nauseated or vomiting. IV fluid maintenance therapy lactated Ringer's at 100 mL/HR Hypokalemia: Replace potassium per hospital protocol Diabetes mellitus type 2: Check hemoglobin A1c in a.m. Glucometer checks a.c. and HS 1800 ADA diet once patient is no longer nauseated and she is able to tolerate clear liquid diet Humulin R sliding scale GI prophylaxis, famotidine DVT prophylaxis, Lovenox ADVANCED CARE PLANNING 1. Which of the following were discussed? Hospice Care - Yes Therapeutic options - yes Advance Directives - Yes - patient states she does not have any advance directives in place at this time. Patient states that her has been can make decisions for her if she becomes unable. Other discussions - patient wishes to remain a full code at this time 2. Discussed with who? Patient 3. Voluntary nature of this service was explained to the patient? Yes 4. Amount of time spent - ___16 minutes____ 5. Reviewed by Physician? (if this service was performed by NPP) Yes This document was generated in part using voice recognition software, occasional wrong word or sound alike substitutions may have occurred due to the inherent limitations of voice recognition software. Read the chart carefully and recognize using context, where the substitutions have occurred. Although every effort was made to edit the content, dean of students and typing errors may occur ATTESTATION BY PHYSICIAN I have seen and examined the patient. I reviewed the documentation, medical decision making, and treatment plan as noted by the mid-level provider above. I agree with the findings and plan of care. LUIS ENRIQUE RODRIGUEZ [facility] Jan 30, 2025 18:44
--- NOTE | 2025-01-30 19:23 | NUR ---
PT CARE ASSUMED AT THIS TIME
[2025-01-30] MEDS: LACTATED RINGERS 1000ML 1,000 ML IV SCH (21:09)
[2025-01-30 21:51] LABS: APPEARANCE,URINE CLEAR (CLEAR); GLUCOSE, URINE (UA) >=1000 mg/dL (NEGATIVE); HCG,QUALITATIVE URINE NEGATIVE (NEGATIVE); LEUKOCYTE ESTERASE ,URINE NEGATIVE Leu/uL (NEGATIVE); NITRATE,URINE NEGATIVE (NEGATIVE); OCCULT BLOOD,URINE NEGATIVE (NEGATIVE)
[2025-01-30 21:52] LABS: ADD UA MICROSCOPIC YES
[2025-01-30 21:55] LABS: SQUAMOUS EPITHELIAL CELL,UR RARE /HPF (0-2)
--- NOTE | 2025-01-31 06:01 | NUR ---
REPORT GIVEN TO ADAM KLEIN
[2025-01-31 06:06] LABS: IMMATURE GRANULOCYTE ABSOLUTE 0.01 K/uL (0-1); NUCLEATED RED BLOOD CELLS 0.0 % (0.0-0.19); PLATELET COUNT (AUTO) 308 K/uL (130-400); RED BLOOD CELL COUNT(AUTO) 3.60 MIL/uL (4.00-5.50); RED CELL DISTRIBUTION WIDTH 13.0 % (11.0-15.5); WHITE BLOOD COUNT (AUTO) 4.5 K/uL (4.8-10.8)
[2025-01-31 06:21] LABS: CREATININE 0.3 mg/dL (0.5-1.0); GLOMERULAR FILTR. RATE CALC 140.0 mL/min (>90); GLUCOSE,RANDOM 99.0 mg/dL (70-105); PHOSPHORUS 4.6 mg/dL (2.5-4.9); SODIUM SERUM 138.0 mmol/L (136-145); UREA NITROGEN, BLOOD 5.0 mg/dL (7-18)
[2025-01-31] MEDS: FAMOTIDINE 20MG VIAL IV SCH (09:09)
[2025-01-31] MEDS: ENOXAPARIN SODIUM 40 MG/0.4 ML SYRINGE SQ SCH (09:09)
[2025-01-31 10:17] VITALS: O2SAT 96
--- NOTE | 2025-01-31 10:17 | NUR ---
PATIENT ARRIVED TO THE UNIT. NO SIGNS OF DISTRESS NOTED.
[2025-01-31 10:27] LABS: ASPARTATE AMINOTRANSFERASE 12.0 U/L (10-37); TOTAL PROTEIN, SERUM 5.2 g/dL (6.0-8.3)
--- NOTE | 2025-01-31 10:27 | CONS ---
GASTROENTEROLOGY CONSULTATION NOTE Date of Consultation: Jan 31, 2025 Time of Consultation: 10:11 History of Present Illness: [This is a 39 yo female patient who presented to the ER with complains of nausea and vomiting. Patient has history of Type 2 DM, cholecystectomy and Csections x 6. On admission, WBC 5.2, todayat 4.5; HGB 13.3, today at 10.2, Initial platelets of 388, today at 308. CMP significant for K of 3, creat of 0.3; glucose of 140. Mag today 1.60, Lipas of 26. LFTs and ua are pending. Abd US significant for heapatic steatosis, s/p cholecystectomy with CBD of 4mm. CT scan with no acute findings. ] Review of Systems: CONSTITUTIONAL: No malaise or change in sensation of wellbeing. ENMT: No rhinorrhea, otorrhea, sinus pain, ear ache. CARDIOVASCULAR: No angina, palpitations, orthopnea or paroxysmal dyspnea. RESPIRATORY: No SOB. GASTROINTESTINAL: No abdominal pain, nausea, vomiting, diarrhea, hematemesis, melena or change in the patient's habitual bowel movements consistency/number. GENITOURINARY: No dysuria, hematuria or change in bladder continence. MUSCULOSKELETAL: No new muscle pain or decrease in muscular strength. No new j oint swelling, redness or tenderness. SKIN: No new rash. Past Medical History: Diabetes mellitus MOTHER, Onset:30's - 40 FATHER, Onset:30's - 40 SISTER, Onset:20's - 25 Hypertension MOTHER, Onset:30's - 40 FATHER, Onset:30's - 40 ADDITIONAL PAST MEDICAL HISTORY: [Diabetes mellitius type2] SOCIAL HISTORY: [Negative for smoking, alcohol use, drug use. Patient lives with the , Stas Sandy. Patient is typically independent of her ADLs. Patient denies difficulty paying her bills.] SURGICAL HISTORY: [ section x6, cholecystectomy] Coded Allergies: No Known Drug Allergies (Unverified Allergy, Unknown, 10/02/15) Physical Exam: GEN: Awake, alert, oriented in person, time and place, and in no acute distress sitting in sofa chair. HEENT: No rhinorrhea. Oral pharyngeal mucosa is pink, moist and within normal limits. Neck is supple with no cervical lymphadenopathy, thyromegaly or JVD. CHEST: Inspection, palpation of the chest were unremarkable. Lung auscultation revealed normal breath sounds bilaterally. CARDIAC: Heart sounds are regular. Normal S1, S2. No gallop or murmur. ABD: Soft, non-tender and not distended. No peritoneal signs on palpation. No organomegaly. Normal bowel sounds. EXT: No cyanosis or clubbing. No edema. SKIN: Intact. No rashes. JOINTS: No evidence of synovitis or acute arthritis. NEURO: Alert and oriented to name, place and person. Cranial nerve examination is unremarkable. No focal motor deficits. Normal speech. . Strength is normal. Vital Sign (Last 24 Hours) 01/30/25 01/31/25 19:33 05:34 Temp 98.8 Pulse 60 Resp 16 B/P (MAP) 99/57 Pulse Ox 98 O2 Delivery Room Air* O2 Flow Rate 0 FiO2 21 Laboratory: [ ] Laboratory: Test 01/31/25 08:13 01/31/25 05:56 01/30/25 21:22 01/30/25 16:10 Range/Units Whole Blood Glucose 115 H 70-110 MG/DL White Blood Count 4.5 L 4.8-10.8 K/uL Red Blood Count 3.60 #L 4.00-5.50 MIL/uL Hemoglobin 10.2 #L 12.0-16.0 g/dL Hematocrit 31.0 #L 36-48 % Mean Corpuscular Volume 86.1 79-99 fL Mean Corpuscular Hemoglobin 28.3 27.0-33.0 pg Mean Corpuscular Hemoglobin Concent 32.9 32.0-36.0 g/dL Red Cell Distribution Width 13.0 11.0-15.5 % Platelet Count 308 130-400 K/uL Mean Platelet Volume 10.6 H 7.5-10.5 fL Immature Granulocyte % (Auto) 0.2 0-1 % Neutrophils (%) (Auto) 33.3 L 40.0-77.0 % Lymphocytes (%) (Auto) 54.0 H 21.0-51.0 % Monocytes (%) (Auto) 11.4 3.0-13.0 % Eosinophils (%) (Auto) 0.7 0.0-8.0 % Basophils (%) (Auto) 0.4 0.0-5.0 % Neutrophils # (Auto) 1.5 L 1.8-7.7 K/uL Lymphocytes # (Auto) 2.4 1.0-4.8 K/uL Monocytes # (Auto) 0.5 0.1-1.0 K/uL Eosinophils # (Auto) 0.03 0.00-0.70 K/uL Basophils # (Auto) 0.02 0.00-0.20 K/uL Absolute Immature Granulocyte (auto 0.01 0-1 K/uL Nucleated Red Blood Cells 0.0 0.0-0.19 % Sodium Level 138 136-145 mmol/L Potassium Level 3.3 L 3.5-5.1 mmol/L Chloride Level 105 101-111 mmol/L Carbon Dioxide Level 29 21-32 mmol/L Blood Urea Nitrogen 5 L 7-18 mg/dL Creatinine 0.3 L 0.5-1.0 mg/dL Glomerular Filtration Rate Calc 140 >90 mL/min Random Glucose 99 70-105 mg/dL Hemoglobin A1c 12.3 H 4.0-6.0 % Estimated Average Glucose (eAG) 306 H 70-126 mg/dL Total Calcium 8.1 L 8.5-10.1 mg/dL Phosphorus Level 4.6 2.5-4.9 mg/dL Magnesium Level 1.60 L 1.80-2.40 mg/dL Urine Color LIGHT-YELLOW YELLOW Urine Appearance CLEAR CLEAR Urine pH 6.5 5.0-8.0 Urine Specific [place] 1.005 1.001-1.031 Urine Protein NEGATIVE NEGATIVE mg/dL Urine Glucose (UA) >=1000 H NEGATIVE mg/dL Urine Ketones 20 H NEGATIVE mg/dL Urine Occult Blood NEGATIVE NEGATIVE Urine Nitrate NEGATIVE NEGATIVE Urine Bilirubin NEGATIVE NEGATIVE mg/dL Urine Urobilinogen 0.2 0.2-1.0 mg/dL Urine Leukocyte Esterase NEGATIVE NEGATIVE Claudette/uL Urine RBC None 0-1 /HPF Urine WBC 2-5 H 0-1 /HPF Urine Squamous Epithelial Cells RARE 0-2 /HPF Urine Bacteria None None Seen /HPF Urine HCG, Qualitative NEGATIVE NEGATIVE Whole Blood Ketones Quantitative 1.4 H 0.0-0.6 mmol/L Lipase 26 16-77 U/L Current Medications Medications (Trade) Dose Ordered Sig/Neva Route PRN Reason Start Time Stop Time Status Last Admin Dose Admin Enoxaparin Sodium (Lovenox) 40 mg DAILY SQ 01/31/25 09:00 03/02/25 08:59 01/31/25 09:09 40 MG Famotidine (Pepcid 20mg Vial) 20 mg DAILY IV 01/31/25 09:00 03/02/25 08:59 01/31/25 09:09 20 MG Hydralazine HCl (APRESOLine 20MG INJ) 10 mg Q6H PRN IV For:SBP above 160;DBP above 90 01/30/25 20:30 03/01/25 20:29 Insulin Human Regular (humuLIN R 100 UNIT/ML 3ML) INSULIN SLIDING SCAL... ACHS SQ 01/30/25 21:00 03/01/25 20:59 Lactated Ringer's 1,000 ml @ 100 mls/hr Q10H IV 01/30/25 20:30 03/01/25 20:29 01/31/25 08:09 100 MLS/HR Magnesium Sulfate 50 ml @ 0 mls/hr PROTOCOL PRN IV MAGNESIUM PROTOCOL 01/30/25 19:30 03/01/25 19:29 Morphine Sulfate (morPHINE 2MG SYG) 2 mg Q4H PRN IVP SEVERE PAIN (7-10) 01/30/25 20:30 02/06/25 20:29 Ondansetron HCl (zoFRAN 4MG INJ) 4 mg Q6H PRN IV NAUSEA/VOMITING 01/30/25 20:30 03/01/25 20:29 Potassium Chloride 100 ml @ 50 mls/hr AD PRN IV POTASSIUM PROTOCOL 01/30/25 19:30 03/01/25 19:29 01/30/25 21:09 50 MLS/HR Diagnostics / Radiology: [COPY/PASTE HERE IF NO REPORTS PLEASE DELETE SECTION] Assessment: Nausea and vomiting Abdominal pain Type 2 DM ] Plan: [Clear liquid diet NPO after midnight Plan for EGD in am--Risks and benefits and process of study discussed with patient. All her questions were answered. She agreed to proceed. Please call with questions, concerns, and change in clinical status. Thank you for this consult] JULIETA CEDILLO [employer] Jan 31, 2025 10:27
--- NOTE | 2025-01-31 11:33 | NUR ---
DCP: HOME Pt currently lives with sps and 6 children. Pt receives $1491 in SNAP benefits a month. Pt does not have any DME, home health, or provider services. Pt states that she can complete ADLs independently. Pt does not have PCP, SW gave pt community resources for medial attention at clinics. At [place] pt denies a need for a SNF and wants to go home, sps can assist with transportation services. Addendum: 01/31/25 at 1142 by GAMAL SYED SS Amended: Links added.
[2025-01-31 12:00] VITALS: BP 99/59; PULSE 64; RESP 18; TEMP 98.2
[2025-01-31] MEDS: 0.9%NACL 1000ML 1,000 ML IV SCH (14:00)
[2025-01-31 16:00] VITALS: BP 92/59; PULSE 64; RESP 18; TEMP 98
--- NOTE | 2025-01-31 16:09 | CONS ---
CONSULT NOTE: Endocrinology Consult Chief complaint:nausea and vomiting Reason for consult: uncontrolled dm-2 DOS:01/31/25 History of Present Illness Patient reports that she came to the emergency department with a chief complaint of nausea and vomiting. Onset was three days ago. Location is abdomen. Duration is on and off. Character is described as watery. There was no alleviating factors. Symptoms are aggravated with the in food or drinking fluid. Patient denies any associated diarrhea, fever, chills. Today in the emergency department CBC unremarkable, potassium 3.0, no urinalysis has been collected or sent to lab, ketones mildly elevated at 1.4. Emergency room physician recommended that patient be admitted with a diagnosis of intractable nausea and vomiting. Home diabetic regimen: Hba1c 12.6% she injects novolin 70/30 insulin 20 units AM and 10 units PM at home. she was recently treated for DKA. off metformin due to gi side effects. continue novolin 70/30 insulin 20 units AM and 10 units PM. if hyperglycemia then switch to lantus and regular insulin. continue medium dose ssi.. Continue medium dose sliding scale insulin. Monitor glucose q x 6 hourly. Continue carb consistent diet. Keep glucose less than 180 mg/dl. Thanks for allowing me to participate in patient care and will continue to follow up. Past Medical History Patient History: Diabetes mellitus MOTHER, Onset: - FATHER, Onset: - SISTER, Onset:'s - Hypertension MOTHER, Onset: - 40 FATHER, Onset: - ADDITIONAL PAST MEDICAL HISTORY: [Diabetes mellitius type2] SOCIAL HISTORY: [Negative for smoking, alcohol use, drug use. Patient lives with the , Stas Sandy. Patient is typically independent of her ADLs. Patient denies difficulty paying her bills.] SURGICAL HISTORY: [ section x6, cholecystectomy] Review of Systems General: No Fever, No Chills, No Night Sweats, No Fatigue, No Malaise, No Appetite, No Other HEENT: No Head Aches, No Visual Changes, No Eye Pain, No Ear Pain, No Dysphasia, No Sinus Congestion, No Post Nasal Drip, No Sore Throat, No Other Pulmonary: No Dyspnea, No Cough, No Pleuritic Chest Pain, No Other Cardiovascular: No: Chest Pain, Palpitations, Orthopnea, Paroxysmal Noc. Dyspnea, Edema, Lt Headedness, Other Gastrointestinal: Nausea, Vomiting; No: Abdominal Pain, Diarrhea, Constipation, Melena, Hematochezia, Other Genitourinary: No Dysuria, No Frequency, No Incontinence, No Hematuria, No Retention, No Other Musculoskeletal: No: other, neck pain, shoulder pain, arm pain, back pain, hand pain, leg pain, foot pain Skin: No Urticaria, No Rash, No Other Neurological: No: Weakness, Numbness, Incoordination, Change in speech, Confusion, Seizures, Other Allergies: Coded Allergies: No Known Drug Allergies (Unverified Allergy, Unknown, 10/02/15) No Active Prescriptions or Reported Meds Exam General Appearance: Alert, Oriented X3, Cooperative, mild distress HEENT: Atraumatic, EOMI Respiratory: Clear to auscultation, Normal air movement, NL respiratory effort Cardiovascular: Regular rate, Regular rhythm, Normal S1, Normal S2 Abdominal: Normal bowel sounds, Soft, No tenderness Extremities: No edema Skin: No significant lesion Neuro: Normal speech, Strength at 5/5 X4 ext, Sensation intact, Cranial nerves 3-12 NL Psych/Mental Status: Mental status NL, Mood NL, Thoughts/Content NL ASSESSMENT: uncntrolled Diabetes mellitus type2 Home diabetic regimen: Hba1c 12.6% she injects novolin 70/30 insulin 20 units AM and 10 units PM at home. she was recently treated for DKA. Intractable nausea, vomiting, POA pending endoscopy Hypokalemia, POA PLAN: continue novolin 70/30 insulin 20 units AM and 10 units PM. if hyperglycemia then switch to lantus and regular insulin. continue medium dose ssi.. Continue medium dose sliding scale insulin. Monitor glucose q x 6 hourly. Continue carb consistent diet. Keep glucose less than 180 mg/dl. Thanks for allowing me to participate in patient care and will continue to follow up. Vital Signs 01/31/25 01/31/25 10:17 12:00 Temp 98.2 Pulse 64 Resp 18 B/P (MAP) 99/59 Pulse Ox 97 O2 Delivery Room Air O2 Flow Rate 0 FiO2 21 Hematology Labs: Test 01/31/25 05:56 Range/Units White Blood Count 4.5 L 4.8-10.8 K/uL Red Blood Count 3.60 #L 4.00-5.50 MIL/uL Hemoglobin 10.2 #L 12.0-16.0 g/dL Hematocrit 31.0 #L 36-48 % Mean Corpuscular Volume 86.1 79-99 fL Mean Corpuscular Hemoglobin 28.3 27.0-33.0 pg Mean Corpuscular Hemoglobin Concent 32.9 32.0-36.0 g/dL Red Cell Distribution Width 13.0 11.0-15.5 % Platelet Count 308 130-400 K/uL Mean Platelet Volume 10.6 H 7.5-10.5 fL Immature Granulocyte % (Auto) 0.2 0-1 % Neutrophils (%) (Auto) 33.3 L 40.0-77.0 % Lymphocytes (%) (Auto) 54.0 H 21.0-51.0 % Monocytes (%) (Auto) 11.4 3.0-13.0 % Eosinophils (%) (Auto) 0.7 0.0-8.0 % Basophils (%) (Auto) 0.4 0.0-5.0 % Neutrophils # (Auto) 1.5 L 1.8-7.7 K/uL Lymphocytes # (Auto) 2.4 1.0-4.8 K/uL Monocytes # (Auto) 0.5 0.1-1.0 K/uL Eosinophils # (Auto) 0.03 0.00-0.70 K/uL Basophils # (Auto) 0.02 0.00-0.20 K/uL Absolute Immature Granulocyte (auto 0.01 0-1 K/uL Nucleated Red Blood Cells 0.0 0.0-0.19 % Chemistry Labs: Test 01/31/25 08:13 01/31/25 05:56 01/30/25 16:10 Range/Units Whole Blood Glucose 115 H 70-110 MG/DL Sodium Level 138 136-145 mmol/L Potassium Level 3.3 L 3.5-5.1 mmol/L Chloride Level 105 101-111 mmol/L Carbon Dioxide Level 29 21-32 mmol/L Blood Urea Nitrogen 5 L 7-18 mg/dL Creatinine 0.3 L 0.5-1.0 mg/dL Glomerular Filtration Rate Calc 140 >90 mL/min Random Glucose 99 70-105 mg/dL Hemoglobin A1c 12.3 H 4.0-6.0 % Estimated Average Glucose (eAG) 306 H 70-126 mg/dL Total Calcium 8.1 L 8.5-10.1 mg/dL Phosphorus Level 4.6 2.5-4.9 mg/dL Magnesium Level 1.60 L 1.80-2.40 mg/dL Total Bilirubin 0.4 0.2-1.0 mg/dL Direct Bilirubin 0.1 0.0-0.3 mg/dL Aspartate Amino Transf (AST/SGOT) 12 10-37 U/L Alanine Aminotransferase (ALT/SGPT) 17 12-78 U/L Alkaline Phosphatase 44 L 50-136 U/L Total Protein 5.2 L 6.0-8.3 g/dL Albumin 2.6 L 3.5-5.0 g/dL Whole Blood Ketones Quantitative 1.4 H 0.0-0.6 mmol/L Lipase 26 16-77 U/L Current Medications Medications (Trade) Dose Ordered Sig/Neva Route Start Time Stop Time Status Last Admin Dose Admin Enoxaparin Sodium (Lovenox) 40 mg DAILY SQ 01/31/25 09:00 03/02/25 08:59 01/31/25 09:09 40 MG Famotidine (Pepcid 20mg Vial) 20 mg DAILY IV 01/31/25 09:00 01/31/25 13:52 DC 01/31/25 09:09 20 MG Insulin Human Isoph/Insulin Regular (humuLIN 70-30 VIAL) 20UNIT IN THE AM AND 10UNIT... BIDAC SQ 01/31/25 16:30 03/02/25 16:29 Insulin Human Regular (humuLIN R 100 UNIT/ML 3ML) INSULIN SLIDING SCAL... ACHS SQ 01/30/25 21:00 03/01/25 20:59 Lactated Ringer's 1,000 ml @ 100 mls/hr Q10H IV 01/30/25 20:30 03/01/25 20:29 01/31/25 08:09 100 MLS/HR Pantoprazole Sodium (PROTonix 40MG TAB) 40 mg BID PO 01/31/25 21:00 03/02/25 20:59 Sodium Chloride 1,000 ml @ 100 mls/hr Q10H IV 01/31/25 14:00 03/02/25 13:59 ANTONY ENRIQUEZ MD Jan 31, 2025 16:09
--- NOTE | 2025-01-31 17:50 | PN ---
[facility] PROGRESS NOTE Date of Service: Jan 31, 2025 Time of Service: 17:42 SUBJECTIVE: She is a 39 year old female with past medical history of Diabetes type 2 mellitus. She had section x6, cholecystectomy. She doesn't smoke, drink alcohol and use drugs. Patient lives with the , Stas Sandy. Patient is typically independent of her ADLs. Patient denies difficulty paying her bills. She presented to the ER with complaint of nausea and vomiting. It started 3 days ago. It was yellow, watery. There was no alleviating factors. Symptoms are aggravated with the eating food or drinking fluid. She had chills but denied any associated diarrhea, fever. She was admitted previously to [facility] with diagnosis of DKA. In the ER her vitas signs are normal and her labs are normal except for potassium 3, Cl 100, Glucose 151, HbA1c is 12.3, Ketones 1.4. Urinalysis showed glucose >1000, ketones 20, WBC 2 to 5. She was started on insulin regular, enoxaparin and ringer lactate. Her potassium is replaced by giving potassium chloride. She was admitted to the hospital for further management and treatment. 01/31/2025:Patient is seen in room no 432. She is feeling better when compared to yesterday. Her symptoms are less severe. Her vitals are normal except for blood pressure which is 99/57. So we started Normal saline. her labs are normal except for WBC is 4.5, Hb is 10.2, K is 3.3, BUN is 5, Creatinine is 0.3, calcium is 8.1, magnesium is 1.6, ALP is 44, Protein is 5.2, Albumin is 2.6, Glucose is 95. So we replaced potassium and magnesium. Gastroenterology consult was placed and they said that they will do an endoscopy tomorrow morning and started her on clear liquid diet. She will be kept NPO at midnight. Endocrinology consult was placed and we are waiting for their recommendations. Urine drug screen is ordered. REVIEW OF SYSTEMS CONSTITUTIONAL: Denies fevers, chills, or night sweats. No unintentional weight loss reported. NEUROLOGICAL: Denies headache, amaurosis fugax, motor weakness, sensory deficit, vertigo/spinning sensation, gait abnormalities, or tremors. ENT: No hearing loss, otalgia, otorrhea, rhinitis, rhinorrhea, hoarseness, or sore throat. CARDIOVASCULAR: Denies any exertional angina, dyspnea on exertion, orthopnea, paroxysmal nocturnal dyspnea, palpitations, life-threatening arrhythmias, claudication. PULMONARY: Denies any shortness of breath, cough, phlegm/sputum, hemoptysis, pleuritic chest pain. SLEEP: Denies morning headaches, daytime somnolence or napping. Denies d ifficulty falling asleep, staying asleep, waking from sleep. Denies knowledge of snoring. GASTROINTESTINAL: Nausea and vomiting Denies any type of dysphagia to either liquids or solids. Denies pyrosis, early satiety, abdominal pain, diarrhea, constipation, or changes in stool consistency or caliber. Denies coffee-ground emesis, hematemesis, hematochezia, or melanotic stools. GENITOURINARY: Denies frequency, urgency, nocturia, hematuria or incontinence (Storage/Irritative symptoms.) Low urinary stream, straining to void, urinary intermittency or hesitancy, splitting of the voiding stream, terminal dribbling. ENDOCRINOLOGIC: Denies polyuria, polydipsia, polyphagia or heat/cold intolerances. HEMATOLOGIC: Denies thrombophilia/previous clots, or coagulopathy/bleeding disorders. ONCOLOGIC: Denies personal history of malignancy. DERMATOLOGIC: Denies rashes or pruritus. PSYCHIATRIC: Denies any suicidal or homicidal ideation. Denies hallucinations. PHYSICAL EXAM GENERAL APPEARANCE: The patient is awake, alert, and oriented, in no acute cardiopulmonary distress. NEUROLOGICAL: Cranial nerves II-XII grossly intact. Motor is 5/5 in bilateral upper and lower extremities proximal to distal. No sensory deficits. HEENT: Face is symmetric. Pupils are equal and reactive. Extraocular movements are intact. NECK: Supple. No JVD. No thyromegaly. No submental, submandibular, pre- /postauricular, occipital or supraclavicular lymphadenopathy. CHEST: Normal chest expansion. No Telemetry. LUNGS: Absence of any rales, rhonchi or any wheezing. CARDIOVASCULAR: Regular. S1 and S2 normal. No appreciable rubs, murmurs or gallops. ABDOMEN: Soft, nontender, and nondistended. There is no rebound, voluntary guarding, or rigidity. : Deferred. No Nuñez. EXTREMITIES: Non-edematous and not cyanotic. No clubbing. Good capillary refill. SKIN: No skin breakdown. Vital Signs (last 8hr) Date Time Temp Pulse Resp B/P (MAP) Pulse Ox O2 Delivery O2 Flow Rate FiO2 01/31/25 16:00 98.1 64 18 92/59 99 Room Air 01/31/25 12:00 98.2 64 18 99/59 97 Room Air 01/31/25 10:17 96 Room Air* 0 21 LABS: Laboratory: Test 01/31/25 16:48 01/31/25 05:56 01/30/25 21:22 01/30/25 16:10 Range/Units Whole Blood Glucose 225 #H 70-110 MG/DL White Blood Count 4.5 L 4.8-10.8 K/uL Red Blood Count 3.60 #L 4.00-5.50 MIL/uL Hemoglobin 10.2 #L 12.0-16.0 g/dL Hematocrit 31.0 #L 36-48 % Mean Corpuscular Volume 86.1 79-99 fL Mean Corpuscular Hemoglobin 28.3 27.0-33.0 pg Mean Corpuscular Hemoglobin Concent 32.9 32.0-36.0 g/dL Red Cell Distribution Width 13.0 11.0-15.5 % Platelet Count 308 130-400 K/uL Mean Platelet Volume 10.6 H 7.5-10.5 fL Immature Granulocyte % (Auto) 0.2 0-1 % Neutrophils (%) (Auto) 33.3 L 40.0-77.0 % Lymphocytes (%) (Auto) 54.0 H 21.0-51.0 % Monocytes (%) (Auto) 11.4 3.0-13.0 % Eosinophils (%) (Auto) 0.7 0.0-8.0 % Basophils (%) (Auto) 0.4 0.0-5.0 % Neutrophils # (Auto) 1.5 L 1.8-7.7 K/uL Lymphocytes # (Auto) 2.4 1.0-4.8 K/uL Monocytes # (Auto) 0.5 0.1-1.0 K/uL Eosinophils # (Auto) 0.03 0.00-0.70 K/uL Basophils # (Auto) 0.02 0.00-0.20 K/uL Absolute Immature Granulocyte (auto 0.01 0-1 K/uL Nucleated Red Blood Cells 0.0 0.0-0.19 % Sodium Level 138 136-145 mmol/L Potassium Level 3.3 L 3.5-5.1 mmol/L Chloride Level 105 101-111 mmol/L Carbon Dioxide Level 29 21-32 mmol/L Blood Urea Nitrogen 5 L 7-18 mg/dL Creatinine 0.3 L 0.5-1.0 mg/dL Glomerular Filtration Rate Calc 140 >90 mL/min Random Glucose 99 70-105 mg/dL Hemoglobin A1c 12.3 H 4.0-6.0 % Estimated Average Glucose (eAG) 306 H 70-126 mg/dL Total Calcium 8.1 L 8.5-10.1 mg/dL Phosphorus Level 4.6 2.5-4.9 mg/dL Magnesium Level 1.60 L 1.80-2.40 mg/dL Total Bilirubin 0.4 0.2-1.0 mg/dL Direct Bilirubin 0.1 0.0-0.3 mg/dL Aspartate Amino Transf (AST/SGOT) 12 10-37 U/L Alanine Aminotransferase (ALT/SGPT) 17 12-78 U/L Alkaline Phosphatase 44 L 50-136 U/L Total Protein 5.2 L 6.0-8.3 g/dL Albumin 2.6 L 3.5-5.0 g/dL Urine Color LIGHT-YELLOW YELLOW Urine Appearance CLEAR CLEAR Urine pH 6.5 5.0-8.0 Urine Specific [place] 1.005 1.001-1.031 Urine Protein NEGATIVE NEGATIVE mg/dL Urine Glucose (UA) >=1000 H NEGATIVE mg/dL Urine Ketones 20 H NEGATIVE mg/dL Urine Occult Blood NEGATIVE NEGATIVE Urine Nitrate NEGATIVE NEGATIVE Urine Bilirubin NEGATIVE NEGATIVE mg/dL Urine Urobilinogen 0.2 0.2-1.0 mg/dL Urine Leukocyte Esterase NEGATIVE NEGATIVE Claudette/uL Urine RBC None 0-1 /HPF Urine WBC 2-5 H 0-1 /HPF Urine Squamous Epithelial Cells RARE 0-2 /HPF Urine Bacteria None None Seen /HPF Urine HCG, Qualitative NEGATIVE NEGATIVE Whole Blood Ketones Quantitative 1.4 H 0.0-0.6 mmol/L Lipase 26 16-77 U/L Current Medications Medications (Trade) Dose Ordered Sig/Neva Route PRN Reason Start Time Stop Time Status Last Admin Dose Admin Enoxaparin Sodium (Lovenox) 40 mg DAILY SQ 7/31/25 09:00 03/02/25 08:59 01/31/25 09:09 40 MG Famotidine (Pepcid 20mg Vial) 20 mg DAILY IV 01/31/25 09:00 01/31/25 13:52 DC 01/31/25 09:09 20 MG Hydralazine HCl (APRESOLine 20MG INJ) 10 mg Q6H PRN IV For:SBP above 160;DBP above 90 01/30/25 20:30 03/01/25 20:29 Insulin Human Isoph/Insulin Regular (humuLIN 70-30 VIAL) 20UNIT IN THE AM AND 10UNIT... BIDAC SQ 01/31/25 16:30 03/02/25 16:29 Insulin Human Regular (humuLIN R 100 UNIT/ML 3ML) INSULIN SLIDING SCAL... ACHS SQ 01/30/25 21:00 03/01/25 20:59 01/31/25 17:13 6 UNIT Lactated Ringer's 1,000 ml @ 100 mls/hr Q10H IV 01/30/25 20:30 03/01/25 20:29 01/31/25 08:09 100 MLS/HR Magnesium Sulfate 50 ml @ 0 mls/hr PROTOCOL PRN IV MAGNESIUM PROTOCOL 01/30/25 19:30 03/01/25 19:29 Morphine Sulfate (morPHINE 2MG SYG) 2 mg Q4H PRN IVP SEVERE PAIN (7-10) 01/30/25 20:30 02/06/25 20:29 Ondansetron HCl (zoFRAN 4MG INJ) 4 mg Q6H PRN IV NAUSEA/VOMITING 01/30/25 20:30 03/01/25 20:29 Pantoprazole Sodium (PROTonix 40MG TAB) 40 mg BID PO 01/31/25 21:00 03/02/25 20:59 Potassium Chloride 100 ml @ 50 mls/hr AD PRN IV POTASSIUM PROTOCOL 01/30/25 19:30 03/01/25 19:29 01/30/25 21:09 50 MLS/HR Sodium Chloride 1,000 ml @ 100 mls/hr Q10H IV 01/31/25 14:00 03/02/25 13:59 01/31/25 14:00 100 MLS/HR DIAGNOSTICS / RADIOLOGY: [ ] ASSESSMENT: Intractable nausea, vomiting, POA Hypokalemia, POA Hypomagnesemia, POA Diabetes mellitius type2, POA PLAN: Intractable nausea, vomiting, POA Today her symptoms are less severe when compared to yesterday. Gastroenterology consult was placed and they will do endoscopy tomorrow in the morning. Patient will be kept NPO tonight Clear liquid diet is started Hypokalemia, POA Today her potassium level is 3.3. We replaced the potassium. Will repeat her labs tomorrow. Hypomagnesemia, POA Today her magnesium level is 1.6 We replaced the magnesium. Will repeat her labs tomorrow. Diabetes mellitus type2,POA Her HbA1c is 12.3 Today her glucose level in blood is 115. Urinalysis showed glucose is >1000, ketones 20, WBC 2 to 5. She is on insulin regular sliding scale. Endocrinology referral was placed and we are waiting for their recommendations. Will repeat the labs tomorrow. DVT prophylaxis with SCD and enoxaparin. GI prophylaxis with famotidine. ATTESTATION BY PHYSICIAN I have seen and examined the patient. I reviewed the documentation, medical dec ision making, and treatment plan as noted by the resident provider above. I agree with the findings and plan of care. Elio Mercado MD, AKSHAY MD Jan 31, 2025 17:50
[2025-01-31 20:00] VITALS: BP 92/54; PULSE 62; RESP 18; TEMP 99.1
[2025-01-31 21:35] VITALS: O2SAT 99
[2025-02-01] VITALS (12 sets, daily range): BP systolic 94–108; BP diastolic 48–72; PULSE 54–68; RESP 14–18; TEMP 97.8–98.6; O2SAT 99
[2025-02-01 03:34] LABS: AMPHET/METH SCREEN,URINE NEGATIVE (NEGATIVE); BARBITURATE SCREEN, URINE NEGATIVE (NEGATIVE); CANNABINOID SCREEN,URINE NEGATIVE (NEGATIVE); COCAINE SCREEN,URINE NEGATIVE (NEGATIVE)
[2025-02-01 04:36] LABS: NUCLEATED RED BLOOD CELLS 0.0 % (0.0-0.19); PLATELET COUNT (AUTO) 267.0 K/uL (130-400); RED BLOOD CELL COUNT(AUTO) 3.45 MIL/uL (4.00-5.50); RED CELL DISTRIBUTION WIDTH 13.1 % (11.0-15.5); WHITE BLOOD COUNT (AUTO) 3.8 K/uL (4.8-10.8)
[2025-02-01 04:57] LABS: ASPARTATE AMINOTRANSFERASE 11.0 U/L (10-37); CREATININE 0.2 mg/dL (0.5-1.0); GLOMERULAR FILTR. RATE CALC 154.0 mL/min (>90); GLUCOSE,RANDOM 138.0 mg/dL (70-105); SODIUM SERUM 140.0 mmol/L (136-145); TOTAL PROTEIN, SERUM 5.2 g/dL (6.0-8.3); UREA NITROGEN, BLOOD 3.0 mg/dL (7-18)
[2025-02-01] MEDS: MAGNESIUM 2GM PREMIX 50ML 50 ML IV PRN (06:14)
[2025-02-01] MEDS ORDERED: LIDOCAINE PF 100MG/5ML (2%) SYRINGE 5ML ONE (06:58)
[2025-02-01] MEDS ORDERED: GLYCOPYRROLATE 0.2 MG/ML 5 ML VIAL ONE (06:59)
[2025-02-01] MEDS ORDERED: SIMETHICONE 40 MG/0.6 ML ML ONE (07:08)
[2025-02-01] MEDS ORDERED: PoTASSium chloRIDE 20MEQ ER 20 MEQ ERTAB PO PRN (11:30)
[2025-02-01] MEDS ORDERED: PoTASSium chl 10% ELIXIR 20MEQ 20 MEQ/15 ML UDCUP PO PRN (11:30)
--- NOTE | 2025-02-01 13:18 | PN ---
GASTROENTEROLOGY PROGRESS NOTE Date of Visit: Feb 01, 2025 Time of Visit: 13:14 Events / Notes: [EGD with mild gastritis s/p biopsies. Consider GES as outpatient. Results given to patient. She reports feeling better and has tolerated her diet without any abdominal pain, nausea or vomiting. Recommended she f/u as outpatient at [facility] for further evaluation and plan for GES study. Patient agreed. ] Review of Systems: CONSTITUTIONAL: No malaise or change in sensation of wellbeing. ENMT: No rhinorrhea, otorrhea, sinus pain, ear ache. CARDIOVASCULAR: No angina, palpitations, orthopnea or paroxysmal dyspnea. RESPIRATORY: No SOB. GASTROINTESTINAL: No abdominal pain, nausea, vomiting, diarrhea, hematemesis, melena or change in the patient's habitual bowel movements consistency/number. GENITOURINARY: No dysuria, hematuria or change in bladder continence. MUSCULOSKELETAL: No new muscle pain or decrease in muscular strength. No new joint swelling, redness or tenderness. SKIN: No new rash. Physical Exam: GEN: Awake, alert, oriented in person, time and place, and in no acute distress sitting in sofa chair. HEENT: No rhinorrhea. Oral pharyngeal mucosa is pink, moist and within normal limits. Neck is supple with no cervical lymphadenopathy, thyromegaly or JVD. CHEST: Inspection, palpation of the chest were unremarkable. Lung auscultation revealed normal breath sounds bilaterally. CARDIAC: Heart sounds are regular. Normal S1, S2. No gallop or murmur. ABD: Soft, non-tender and not distended. No peritoneal signs on palpation. No organomegaly. Normal bowel sounds. EXT: No cyanosis or clubbing. No edema. SKIN: Intact. No rashes. JOINTS: No evidence of synovitis or acute arthritis. NEURO: Alert and oriented to name, place and person. Cranial nerve examination is unremarkable. No focal motor deficits. Normal speech. . Strength is normal. Vital Signs (last 8hr) Date Time Temp Pulse Resp B/P (MAP) Pulse Ox O2 Delivery O2 Flow Rate FiO2 02/01/25 12:00 98.6 63 18 104/62 99 Room Air 02/01/25 08:10 98.4 60 16 95/63 99 Room Air 21 02/01/25 08:00 98.1 64 15 107/62 99 Room Air 21 02/01/25 08:00 99 Room Air* 0 21 8/1/25 07:55 65 17 104/64 99 Room Air 02/01/25 07:50 67 18 108/63 99 Room Air 02/01/25 07:45 65 18 105/67 99 Room Air 02/01/25 07:40 68 16 106/72 100 Room Air 02/01/25 07:35 60 16 101/61 100 Nonrebreathing Mask 10.0 100 02/01/25 07:30 62 17 103/62 100 Nonrebreathing Mask 10.0 100 02/01/25 07:25 97.9 59 14 100/64 100 Nonrebreathing Mask 10.0 100 Laboratory: [ ] Laboratory: Test 02/01/25 11:55 02/01/25 04:11 02/01/25 03:00 01/31/25 05:56 Range/Units Whole Blood Glucose 158 H 70-110 MG/DL White Blood Count 3.8 L 4.8-10.8 K/uL Red Blood Count 3.45 L 4.00-5.50 MIL/uL Hemoglobin 9.8 L 12.0-16.0 g/dL Hematocrit 30.5 L 36-48 % Mean Corpuscular Volume 88.4 79-99 fL Mean Corpuscular Hemoglobin 28.4 27.0-33.0 pg Mean Corpuscular Hemoglobin Concent 32.1 32.0-36.0 g/dL Red Cell Distribution Width 13.1 11.0-15.5 % Platelet Count 267 130-400 K/uL Mean Platelet Volume 10.8 H 7.5-10.5 fL Nucleated Red Blood Cells 0.0 0.0-0.19 % Sodium Level 140 136-145 mmol/L Potassium Level 3.4 L 3.5-5.1 mmol/L Chloride Level 108 101-111 mmol/L Carbon Dioxide Level 26 21-32 mmol/L Blood Urea Nitrogen 3 L 7-18 mg/dL Creatinine 0.2 L 0.5-1.0 mg/dL Glomerular Filtration Rate Calc 154 >90 mL/min Random Glucose 138 H 70-105 mg/dL Total Calcium 7.8 L 8.5-10.1 mg/dL Magnesium Level 1.70 L 1.80-2.40 mg/dL Total Bilirubin 0.4 0.2-1.0 mg/dL Direct Bilirubin 0.1 0.0-0.3 mg/dL Aspartate Amino Transf (AST/SGOT) 11 10-37 U/L Alanine Aminotransferase (ALT/SGPT) 15 12-78 U/L Alkaline Phosphatase 41 L 50-136 U/L Total Protein 5.2 L 6.0-8.3 g/dL Albumin 2.5 L 3.5-5.0 g/dL Urine Opiates Screen NEGATIVE NEGATIVE Urine Barbiturates Screen NEGATIVE NEGATIVE Urine Phencyclidine Screen NEGATIVE NEGATIVE Urine Amphetamines Screen NEGATIVE NEGATIVE Urine Benzodiazepines Screen NEGATIVE NEGATIVE Urine Cocaine Screen NEGATIVE NEGATIVE Urine Marijuana (THC) Screen NEGATIVE NEGATIVE Immature Granulocyte % (Auto) 0.2 0-1 % Neutrophils (%) (Auto) 33.3 L 40.0-77.0 % Lymphocytes (%) (Auto) 54.0 H 21.0-51.0 % Monocytes (%) (Auto) 11.4 3.0-13.0 % Eosinophils (%) (Auto) 0.7 0.0-8.0 % Basophils (%) (Auto) 0.4 0.0-5.0 % Neutrophils # (Auto) 1.5 L 1.8-7.7 K/uL Lymphocytes # (Auto) 2.4 1.0-4.8 K/uL Monocytes # (Auto) 0.5 0.1-1.0 K/uL Eosinophils # (Auto) 0.03 0.00-0.70 K/uL Basophils # (Auto) 0.02 0.00-0.20 K/uL Absolute Immature Granulocyte (auto 0.01 0-1 K/uL Hemoglobin A1c 12.3 H 4.0-6.0 % Estimated Average Glucose (eAG) 306 H 70-126 mg/dL Phosphorus Level 4.6 2.5-4.9 mg/dL Test 01/30/25 21:22 01/30/25 16:10 Range/Units Urine Color LIGHT-YELLOW YELLOW Urine Appearance CLEAR CLEAR Urine pH 6.5 5.0-8.0 Urine Specific [place] 1.005 1.001-1.031 Urine Protein NEGATIVE NEGATIVE mg/dL Urine Glucose (UA) >=1000 H NEGATIVE mg/dL Urine Ketones 20 H NEGATIVE mg/dL Urine Occult Blood NEGATIVE NEGATIVE Urine Nitrate NEGATIVE NEGATIVE Urine Bilirubin NEGATIVE NEGATIVE mg/dL Urine Urobilinogen 0.2 0.2-1.0 mg/dL Urine Leukocyte Esterase NEGATIVE NEGATIVE Claudette/uL Urine RBC None 0-1 /HPF Urine WBC 2-5 H 0-1 /HPF Urine Squamous Epithelial Cells RARE 0-2 /HPF Urine Bacteria None None Seen /HPF Urine HCG, Qualitative NEGATIVE NEGATIVE Whole Blood Ketones Quantitative 1.4 H 0.0-0.6 mmol/L Lipase 26 16-77 U/L Current Medications Medications (Trade) Dose Ordered Sig/Neva Route PRN Reason Start Time Stop Time Status Last Admin Dose Admin Enoxaparin Sodium (Lovenox) 40 mg DAILY SQ 01/31/25 09:00 03/02/25 08:59 02/01/25 09:03 40 MG Famotidine (Pepcid 20mg Vial) 20 mg DAILY IV 01/31/25 09:00 01/31/25 13:52 DC 01/31/25 09:09 20 MG Hydralazine HCl (APRESOLine 20MG INJ) 10 mg Q6H PRN IV For:SBP above 160;DBP above 90 01/30/25 20:30 03/01/25 20:29 Insulin Human Isoph/Insulin Regular (humuLIN 70-30 VIAL) 20UNIT IN THE AM AND 10UNIT... BIDAC SQ 01/31/25 16:30 03/02/25 16:29 Insulin Human Regular (humuLIN R 100 UNIT/ML 3ML) INSULIN SLIDING SCAL... ACHS SQ 01/30/25 21:00 03/01/25 20:59 01/31/25 17:13 6 UNIT Lactated Ringer's 1,000 ml @ 100 mls/hr Q10H IV 01/30/25 20:30 03/01/25 20:29 01/31/25 08:09 100 MLS/HR Magnesium Sulfate 50 ml @ 0 mls/hr PROTOCOL PRN IV MAGNESIUM PROTOCOL 01/30/25 19:30 03/01/25 19:29 02/01/25 06:14 25 MLS/HR Morphine Sulfate (morPHINE 2MG SYG) 2 mg Q4H PRN IVP SEVERE PAIN (7-10) 01/30/25 20:30 02/06/25 20:29 Ondansetron HCl (zoFRAN 4MG INJ) 4 mg Q6H PRN IV NAUSEA/VOMITING 01/30/25 20:30 03/01/25 20:29 Pantoprazole Sodium (PROTonix 40MG TAB) 40 mg BID PO 01/31/25 21:00 03/02/25 20:59 02/01/25 09:03 40 MG Potassium Chloride 100 ml @ 50 mls/hr AD PRN IV POTASSIUM PROTOCOL 01/30/25 19:30 03/01/25 19:29 01/30/25 21:09 50 MLS/HR Potassium Chloride 100 ml @ 100 mls/hr AD PRN IV POTASSIUM PROTOCOL 02/01/25 11:30 03/03/25 11:29 Potassium Chloride (K-Dur/Klor-Con 20meq) 20 meq AD PRN PO POTASSIUM PROTOCOL 02/01/25 11:30 03/03/25 11:29 Potassium Chloride (KCl 10% Elixir 20meq/15ml) 20 meq AD PRN PO POTASSIUM PROTOCOL 02/01/25 11:30 03/03/25 11:29 Sodium Chloride 1,000 ml @ 100 mls/hr Q10H IV 01/31/25 14:00 03/02/25 13:59 02/01/25 02:44 100 MLS/HR Diagnostics / Radiology: [COPY/PASTE HERE IF NO REPORTS PLEASE DELETE SECTION] Assessment: Nausea and vomiting Abdominal pain Type 2 DM ] Plan: [Clear liquid diet and advance as toleratedy Avoid spicy, greasy, acidic foods, avoid caffeinated beverages, foods with tomatoes and tomato sauces, and chocolate. Avoid NSAIDS. Patient is to f/u at [facility] for further evaluation and plan for GES. Thank you for this consult] JULIETA CEDILLO NP Feb 01, 2025 13:18
--- NOTE | 2025-02-01 14:13 | DS ---
Discharge Summary Hospital Course Summary: Patient information: Name: Hannah Pitt Date of : 1985 Admission date: 01/30/2025 Discharge date: 02/01/2025 Attending physician: Dr. Elio Mercado Admitting diagnosis: Intractable nausea, vomiting, POA Hypokalemia, POA Diabetes mellitius type2, POA Discharge diagnosis: Intractable nausea, vomiting, POA Hypokalemia, POA Hypomagnesemia, POA Diabetes mellitius type2, POA Course in hospital: She is a 39 year old female with with past medical history of diabetes type 2 mellitus presented to the ER with complaints of nausea and vomiting. It was 3 days ago and yellow in color, watery. Her symptoms were aggravated with the eating food or drinking fluid. She had chills but denied any associated diarrhea, fever. In the ER her vitas signs were normal and her labs we normal except for potassium 3, Cl 100, Glucose 151, HbA1c is 12.3, K etones 1.4. Urinalysis showed glucose >1000, ketones 20, WBC 2 to 5. She was started on insulin regular, enoxaparin and ringer lactate. Her potassium was replaced by giving potassium chloride. She was admitted to the hospital for further management and treatment. Gastroenterology was consulted and they recommended EGD and follow up with them in 1 week. EGD was done today. It showed gastritis and biopsy was done. They also recommended GEBT in a week. Urine drug screen was negative. Endocrinology was consulted and they recommended to continue novolin 70/30 insulin 20 units AM and 10 units PM, medium dose SSI and sliding scale insulin. On 02/01/2025 her vitals signs are normal and labs are improving. She is medically stable and ready for discharge. So we are disc harging her. Procedures performed: None Medications on discharge: 1) Zofran 4mg PRN for nausea. 2) Novolin insulin 70/30 20 units in AM and 10 units PM Discharge instructions: 1) Follow up with primary care physician in 2 to 3 days. 2) Follow up with gastroenterology in 1 week. 3) Follow up with endocrinology within 2 to 3 weeks. 4) Stay hydrated. 5) Don't skip any meal. 6) Continue all medications as prescribed. Do not discontinue or change doses without consulting your PCP. 7) Gradually resume normal activities as tolerated. 8) Continue a balanced diet. 9) Seek immediate medical attention if you experience chest pain, SOB, or severe headache. Discharge to: Home Condition on discharge: Stable Director Of Dementia Operations(s): CONSULTATION REPORT Name: HANNAH PITT Acct: [id number] MR: [id number] : 1985 Admit Date: 01/30/25 JULIETA CEDILLO NP [facility] [address] [place] [address] GASTROENTEROLOGY CONSULTATION NOTE Date of Consultation: Jan 31, 2025 Time of Consultation: 10:11 History of Present Illness: [This is a 39 yo female patient who presented to the ER with complains of nausea and vomiting. Patient has history of Type 2 DM, cholecystectomy and Csections x 6. On admission, WBC 5.2, todayat 4.5; HGB 13.3, today at 10.2, Initial platelets of 388, today at 308. CMP significant for K of 3, creat of 0.3; glucose of 140. Mag today 1.60, Lipas of 26. LFTs and ua are pending. Abd US significant for heapatic steatosis, s/p cholecystectomy with CBD of 4mm. CT scan with no acute findings. ] Review of Systems: CONSTITUTIONAL: No malaise or change in sensation of wellbeing. ENMT: No rhinorrhea, otorrhea, sinus pain, ear ache. CARDIOVASCULAR: No angina, palpitations, orthopnea or paroxysmal dyspnea. RESPIRATORY: No SOB. GASTROINTESTINAL: No abdominal pain, nausea, vomiting, diarrhea, hematemesis, melena or change in the patient's habitual bowel movements consistency/number. GENITOURINARY: No dysuria, hematuria or change in bladder continence. MUSCULOSKELETAL: No new muscle pain or decrease in muscular strength. No new joint swelling, redness or tenderness. SKIN: No new rash. Past Medical History: Diabetes mellitus MOTHER, Onset:30's - 40 FATHER, Onset:30's - 40 SISTER, Onset:20's - Hypertension MOTHER, Onset:30's - 40 FATHER, Onset:30's - 40 ADDITIONAL PAST MEDICAL HISTORY: [Diabetes mellitius type2] SOCIAL HISTORY: [Negative for smoking, alcohol use, drug use. Patient lives with the , Stas Sandy. Patient is typically independent of her ADLs. Patient denies difficulty paying her bills.] SURGICAL HISTORY: [ section x6, cholecystectomy] Coded Allergies: No Known Drug Allergies (Unverified Allergy, Unknown, 10/02/15) Physical Exam: GEN: Awake, alert, oriented in person, time and place, and in no acute distress sitting in sofa chair. HEENT: No rhinorrhea. Oral pharyngeal mucosa is pink, moist and within normal limits. Neck is supple with no cervical lymphadenopathy, thyromegaly or JVD. CHEST: Inspection, palpation of the chest were unremarkable. Lung auscultation revealed normal breath sounds bilaterally. CARDIAC: Heart sounds are regular. Normal S1, S2. No gallop or murmur. ABD: Soft, non-tender and not distended. No peritoneal signs on palpation. No organomegaly. Normal bowel sounds. EXT: No cyanosis or clubbing. No edema. SKIN: Intact. No rashes. JOINTS: No evidence of synovitis or acute arthritis. NEURO: Alert and oriented to name, place and person. Cranial nerve examination is unremarkable. No focal motor deficits. Normal speech. . Strength is normal. Vital Sign (Last 24 Hours) 01/30/25 01/31/25 19:33 05:34 Temp 98.8 Pulse 60 Resp 16 B/P (MAP) 99/57 Pulse Ox 98 O2 Delivery Room Air* O2 Flow Rate 0 FiO2 21 Laboratory: [ ] Laboratory: Test 01/31/25 08:13 01/31/25 05:56 01/30/25 21:22 01/30/25 16:10 Range/Units Whole Blood Glucose 115 H 70-110 MG/DL White Blood Count 4.5 L 4.8-10.8 K/uL Red Blood Count 3.60 #L 4.00-5.50 MIL/uL Hemoglobin 10.2 #L 12.0-16.0 g/dL Hematocrit 31.0 #L 36-48 % Mean Corpuscular Volume 86.1 79-99 fL Mean Corpuscular Hemoglobin 28.3 27.0-33.0 pg Mean Corpuscular Hemoglobin Concent 32.9 32.0-36.0 g/dL Red Cell Distribution Width 13.0 11.0-15.5 % Platelet Count 308 130-400 K/uL Mean Platelet Volume 10.6 H 7.5-10.5 fL Immature Granulocyte % (Auto) 0.2 0-1 % Neutrophils (%) (Auto) 33.3 L 40.0-77.0 % Lymphocytes (%) (Auto) 54.0 H 21.0-51.0 % Monocytes (%) (Auto) 11.4 3.0-13.0 % Eosinophils (%) (Auto) 0.7 0.0-8.0 % Basophils (%) (Auto) 0.4 0.0-5.0 % Neutrophils # (Auto) 1.5 L 1.8-7.7 K/uL Lymphocytes # (Auto) 2.4 1.0-4.8 K/uL Monocytes # (Auto) 0.5 0.1-1.0 K/uL Eosinophils # (Auto) 0.03 0.00-0.70 K/uL Basophils # (Auto) 0.02 0.00-0.20 K/uL Absolute Immature Granulocyte (auto 0.01 0-1 K/uL Nucleated Red Blood Cells 0.0 0.0-0.19 % Sodium Level 138 136-145 mmol/L Potassium Level 3.3 L 3.5-5.1 mmol/L Chloride Level 105 101-111 mmol/L Carbon Dioxide Level 29 21-32 mmol/L Blood Urea Nitrogen 5 L 7-18 mg/dL Creatinine 0.3 L 0.5-1.0 mg/dL Glomerular Filtration Rate Calc 140 >90 mL/min Random Glucose 99 70-105 mg/dL Hemoglobin A1c 12.3 H 4.0-6.0 % Estimated Average Glucose (eAG) 306 H 70-126 mg/dL Total Calcium 8.1 L 8.5-10.1 mg/dL Phosphorus Level 4.6 2.5-4.9 mg/dL Magnesium Level 1.60 L 1.80-2.40 mg/dL Urine Color LIGHT-YELLOW YELLOW Urine Appearance CLEAR CLEAR Urine pH 6.5 5.0-8.0 Urine Specific [place] 1.005 1.001-1.031 Urine Protein NEGATIVE NEGATIVE mg/dL Urine Glucose (UA) >=1000 H NEGATIVE mg/dL Urine Ketones 20 H NEGATIVE mg/dL Urine Occult Blood NEGATIVE NEGATIVE Urine Nitrate NEGATIVE NEGATIVE Urine Bilirubin NEGATIVE NEGATIVE mg/dL Urine Urobilinogen 0.2 0.2-1.0 mg/dL Urine Leukocyte Esterase NEGATIVE NEGATIVE Claudette/uL Urine RBC None 0-1 /HPF Urine WBC 2-5 H 0-1 /HPF Urine Squamous Epithelial Cells RARE 0-2 /HPF Urine Bacteria None None Seen /HPF Urine HCG, Qualitative NEGATIVE NEGATIVE Whole Blood Ketones Quantitative 1.4 H 0.0-0.6 mmol/L Lipase 26 16-77 U/L Current Medications Medications (Trade) Dose Ordered Sig/Neva Route PRN Reason Start Time Stop Time Status Last Admin Dose Admin Enoxaparin Sodium (Lovenox) 40 mg DAILY SQ 01/31/25 09:00 03/02/25 08:59 01/31/25 09:09 40 MG Famotidine (Pepcid 20mg Vial) 20 mg DAILY IV 01/31/25 09:00 03/02/25 08:59 01/31/25 09:09 20 MG Hydralazine HCl (APRESOLine 20MG INJ) 10 mg Q6H PRN IV For:SBP above 160;DBP above 90 01/30/25 20:30 03/01/25 20:29 Insulin Human Regular (humuLIN R 100 UNIT/ML 3ML) INSULIN SLIDING SCAL... ACHS SQ 01/30/25 21:00 03/01/25 20:59 Lactated Ringer's 1,000 ml @ 100 mls/hr Q10H IV 01/30/25 20:30 03/01/25 20:29 01/31/25 08:09 100 MLS/HR Magnesium Sulfate 50 ml @ 0 mls/hr PROTOCOL PRN IV MAGNESIUM PROTOCOL 01/30/25 19:30 03/01/25 19:29 Morphine Sulfate (morPHINE 2MG SYG) 2 mg Q4H PRN IVP SEVERE PAIN (7-10) 01/30/25 20:30 02/06/25 20:29 Ondansetron HCl (zoFRAN 4MG INJ) 4 mg Q6H PRN IV NAUSEA/VOMITING 01/30/25 20:30 03/01/25 20:29 Potassium Chloride 100 ml @ 50 mls/hr AD PRN IV POTASSIUM PROTOCOL 01/30/25 19:30 03/01/25 19:29 01/30/25 21:09 50 MLS/HR Diagnostics / Radiology: [COPY/PASTE HERE IF NO REPORTS PLEASE DELETE SECTION] Assessment: Nausea and vomiting Abdominal pain Type 2 DM ] Plan: [Clear liquid diet NPO after midnight Plan for EGD in am--Risks and benefits and process of study discussed with patient. All her questions were answered. She agreed to proceed. Please call with questions, concerns, and change in clinical status. Thank you for this consult] JULIETA CEDILLO NP Jan 31, 2025 10:27 Electronically Signed by: JULIETA CEDILLO NP01/31/25 1125 Electronically Co-Signed by: CONSULTATION REPORT Name: HANNAH PITT Acct: [id number] MR: [id number] : 1985 Admit Date: 01/30/25 ANTONY ENRIQUEZ MD [facility] [address] [place] [address] CONSULT NOTE: Endocrinology Consult Chief complaint:nausea and vomiting Reason for consult: uncontrolled dm-2 DOS:01/31/25 History of Present Illness Patient reports that she came to the emergency department with a chief complaint of nausea and vomiting. Onset was three days ago. Location is abdomen. Duration is on and off. Character is described as watery. There was no alleviating factors. Symptoms are aggravated with the in food or drinking fluid. Patient denies any associated diarrhea, fever, chills. Today in the emergency department CBC unremarkable, potassium 3.0, no urinalysis has been c ollected or sent to lab, ketones mildly elevated at 1.4. Emergency room physician recommended that patient be admitted with a diagnosis of intractable nausea and vomiting. Home diabetic regimen: Hba1c 12.6% she injects novolin 70/30 insulin 20 units AM and 10 units PM at home. she was recently treated for DKA. off metformin due to gi side effects. continue novolin 70/30 insulin 20 units AM and 10 units PM. if hyperglycemia then switch to lantus and regular insulin. continue medium dose ssi.. Continue medium dose sliding scale insulin. Monitor glucose q x 6 hourly. Continue carb consistent diet. Keep glucose less than 180 mg/dl. Thanks for allowing me to participate in patient care and will continue to follow up. Past Medical History Patient History: Diabetes mellitus MOTHER, Onset:30's - 40 FATHER, Onset:30 - SISTER, Onset: - Hypertension MOTHER, Onset:30 - FATHER, Onset:30 - ADDITIONAL PAST MEDICAL HISTORY: [Diabetes mellitius type2] SOCIAL HISTORY: [Negative for smoking, alcohol use, drug use. Patient lives with the , Stas Sandy. Patient is typically independent of her ADLs. Patient denies difficulty paying her bills.] SURGICAL HISTORY: [ section x6, cholecystectomy] Review of Systems General: No Fever, No Chills, No Night Sweats, No Fatigue, No Malaise, No Appetite, No Other HEENT: No Head Aches, No Visual Changes, No Eye Pain, No Ear Pain, No Dysphasia, No Sinus Congestion, No Post Nasal Drip, No Sore Throat, No Other Pulmonary: No Dyspnea, No Cough, No Pleuritic Chest Pain, No Other Cardiovascular: No: Chest Pain, Palpitations, Orthopnea, Paroxysmal Noc. Dyspnea, Edema, Lt Headedness, Other Gastrointestinal: Nausea, Vomiting; No: Abdominal Pain, Diarrhea, Constipation, Melena, Hematochezia, Other Genitourinary: No Dysuria, No Frequency, No Incontinence, No Hematuria, No Rete ntion, No Other Musculoskeletal: No: other, neck pain, shoulder pain, arm pain, back pain, hand pain, leg pain, foot pain Skin: No Urticaria, No Rash, No Other Neurological: No: Weakness, Numbness, Incoordination, Change in speech, Confusion, Seizures, Other Allergies: Coded Allergies: No Known Drug Allergies (Unverified Allergy, Unknown, 10/02/15) No Active Prescriptions or Reported Meds Exam General Appearance: Alert, Oriented X3, Cooperative, mild distress HEENT: Atraumatic, EOMI Respiratory: Clear to auscultation, Normal air movement, NL respiratory effort Cardiovascular: Regular rate, Regular rhythm, Normal S1, Normal S2 Abdominal: Normal bowel sounds, Soft, No tenderness Extremities: No edema Skin: No significant lesion Neuro: Normal speech, Strength at 5/5 X4 ext, Sensation intact, Cranial nerves 3-12 NL Psych/Mental Status: Mental status NL, Mood NL, Thoughts/Content NL ASSESSMENT: uncntrolled Diabetes mellitus type2 Home diabetic regimen: Hba1c 12.6% she injects novolin 70/30 insulin 20 units AM and 10 units PM at home. she was recently treated for DKA. Intractable nausea, vomiting, POA pending endoscopy Hypokalemia, POA PLAN: continue novolin 70/30 insulin 20 units AM and 10 units PM. if hyperglycemia then switch to lantus and regular insulin. continue medium dose ssi.. Continue medium dose sliding scale insulin. Monitor glucose q x 6 hourly. Continue carb consistent diet. Keep glucose less than 180 mg/dl. Thanks for allowing me to participate in patient care and will continue to follow up. Vital Signs 01/31/25 01/31/25 10:17 12:00 Temp 98.2 Pulse 64 Resp 18 B/P (MAP) 99/59 Pulse Ox 97 O2 Delivery Room Air O2 Flow Rate 0 FiO2 21 Hematology Labs: Test 01/31/25 05:56 Range/Units White Blood Count 4.5 L 4.8-10.8 K/uL Red Blood Count 3.60 #L 4.00-5.50 MIL/uL Hemoglobin 10.2 #L 12.0-16.0 g/dL Hematocrit 31.0 #L 36-48 % Mean Corpuscular Volume 86.1 79-99 fL Mean Corpuscular Hemoglobin 28.3 27.0-33.0 pg Mean Corpuscular Hemoglobin Concent 32.9 32.0-36.0 g/dL Red Cell Distribution Width 13.0 11.0-15.5 % Platelet Count 308 130-400 K/uL Mean Platelet Volume 10.6 H 7.5-10.5 fL Immature Granulocyte % (Auto) 0.2 0-1 % Neutrophils (%) (Auto) 33.3 L 40.0-77.0 % Lymphocytes (%) (Auto) 54.0 H 21.0-51.0 % Monocytes (%) (Auto) 11.4 3.0-13.0 % Eosinophils (%) (Auto) 0.7 0.0-8.0 % Basophils (%) (Auto) 0.4 0.0-5.0 % Neutrophils # (Auto) 1.5 L 1.8-7.7 K/uL Lymphocytes # (Auto) 2.4 1.0-4.8 K/uL Monocytes # (Auto) 0.5 0.1-1.0 K/uL Eosinophils # (Auto) 0.03 0.00-0.70 K/uL Basophils # (Auto) 0.02 0.00-0.20 K/uL Absolute Immature Granulocyte (auto 0.01 0-1 K/uL Nucleated Red Blood Cells 0.0 0.0-0.19 % Chemistry Labs: Test 01/31/25 08:13 01/31/25 05:56 01/30/25 16:10 Range/Units Whole Blood Glucose 115 H 70-110 MG/DL Sodium Level 138 136-145 mmol/L Potassium Level 3.3 L 3.5-5.1 mmol/L Chloride Level 105 101-111 mmol/L Carbon Dioxide Level 29 21-32 mmol/L Blood Urea Nitrogen 5 L 7-18 mg/dL Creatinine 0.3 L 0.5-1.0 mg/dL Glomerular Filtration Rate Calc 140 >90 mL/min Random Glucose 99 70-105 mg/dL Hemoglobin A1c 12.3 H 4.0-6.0 % Estimated Average Glucose (eAG) 306 H 70-126 mg/dL Total Calcium 8.1 L 8.5-10.1 mg/dL Phosphorus Level 4.6 2.5-4.9 mg/dL Magnesium Level 1.60 L 1.80-2.40 mg/dL Total Bilirubin 0.4 0.2-1.0 mg/dL Direct Bilirubin 0.1 0.0-0.3 mg/dL Aspartate Amino Transf (AST/SGOT) 12 10-37 U/L Alanine Aminotransferase (ALT/SGPT) 17 12-78 U/L Alkaline Phosphatase 44 L 50-136 U/L Total Protein 5.2 L 6.0-8.3 g/dL Albumin 2.6 L 3.5-5.0 g/dL Whole Blood Ketones Quantitative 1.4 H 0.0-0.6 mmol/L Lipase 26 16-77 U/L Current Medications Medications (Trade) Dose Ordered Sig/Neva Route Start Time Stop Time Status Last Admin Dose Admin Enoxaparin Sodium (Lovenox) 40 mg DAILY SQ 01/31/25 09:00 03/02/25 08:59 01/31/25 09:09 40 MG Famotidine (Pepcid 20mg Vial) 20 mg DAILY IV 01/31/25 09:00 01/31/25 13:52 DC 01/31/25 09:09 20 MG Insulin Human Isoph/Insulin Regular (humuLIN 70-30 VIAL) 20UNIT IN THE AM AND 10UNIT... BIDAC SQ 01/31/25 16:30 03/02/25 16:29 Insulin Human Regular (humuLIN R 100 UNIT/ML 3ML) INSULIN SLIDING SCAL... ACHS SQ 01/30/25 21:00 03/01/25 20:59 Lactated Ringer's 1,000 ml @ 100 mls/hr Q10H IV 01/30/25 20:30 03/01/25 20:29 01/31/25 08:09 100 MLS/HR Pantoprazole Sodium (PROTonix 40MG TAB) 40 mg BID PO 01/31/25 21:00 03/02/25 20:59 Sodium Chloride 1,000 ml @ 100 mls/hr Q10H IV 01/31/25 14:00 03/02/25 13:59 ANTONY ENRIQUEZ MD Jan 31, 2025 16:09 Electronically Signed by: ANTONY ENRIQUEZ MD01/31/250 Electronically Co-Signed by: Assessment/Plan: ASSESSMENT: Intractable nausea, vomiting, POA Hypokalemia, POA Hypomagnesemia, POA Diabetes mellitius type2, POA PLAN: Intractable nausea, vomiting, POA Today her symptoms are less severe when compared to yesterday. Gastroenterology consult was placed and they recommended endoscopy and GEBT in a week. Endoscopy was done today and it showed gastritis which was biopsied. Follow up with gastroenterology in 1 week as per their recommendations. Prescribed Zofran. Hypokalemia, POA Today her potassium level is 3.4. We replaced the potassium. Hypomagnesemia, POA Today her magnesium level is 1.7 We replaced the magnesium. Diabetes mellitus type2,POA Her HbA1c is 12.3 Today her glucose level in blood is 115. Urinalysis showed glucose is >1000, ketones 20, WBC 2 to 5. She is on insulin regular sliding scale. Endocrinology was consulted and they recommended to continue novolin 70/30 insulin 20 units AM and 10 units PM. Follow up with endocrinology within 2 to 3 weeks. Discharge Instructions: 1) Follow up with primary care physician in 2 to 3 days. 2) Follow up with gastroenetrology in 1 week. 3) Follow up with endocrinology within 2 to 3 weeks. 4) Stay hydrated. 5) Don't skip any meal. 6) Continue all medications as prescribed. Do not discontinue or change doses without consulting your PCP. 7) Gradually resume normal activities as tolerated. 8) Continue a balanced diet. 9) Seek immediate medical attention if you experience chest pain, SOB, or severe headache. Home Medications: Discontinued Scripts Ondansetron (Ondansetron Odt) 4 Mg Tab.rapdis, 1 TAB PO BID PRN for nausea/vomiting for 3 Days, #6 TAB 0 Refills Prov:GABRIELA CEVALLOS MD 01/25/25 Syringe-Needle,Insulin,0.5 ml (Caretouch Insulin Syringe) 1 Each Disp.syrin, EACH MC BID, #60 2 Refills Prov:LIZETH GUTIERREZ NEWBORN PHOTOGRAPHER 12/09/21 Insuln Asp Prt/Insulin Aspart (Novolog Mix 70-30 Vial) 100 Unit/1 Ml Vial, 15 UNITS SQ HS for 30 Days, #3 VIAL 2 Refills Prov:LIZETH GUTIERREZ NEWBORN PHOTOGRAPHER 12/09/21 Insuln Asp Prt/Insulin Aspart (Novolog Mix 70-30 Vial) 100 Unit/1 Ml Vial, 30 UNITS SQ AM for 30 Days, #3 VIAL 2 Refills Prov:LIZETH GUTIERREZ NEWBORN PHOTOGRAPHER 12/09/21 Time spent arranging discharge: 1-30 minutes ATTESTATION BY PHYSICIAN I have seen and examined the patient. I reviewed the documentation, medical decision making, and treatment plan as noted by the resident provider above. I agree with the findings and plan of care. Elio Mercado MD, AKSHAY MD Feb 01, 2025 14:13
--- NOTE | 2025-02-01 15:00 | NUR ---
PT sitting in bed w/ eyes open A&O x4 able to make needs known Denies pain or discomfort. IV removed intact w/o complication. discharge instructions given verbally and written to PT and family. PT verbally acknowledged understanding. PT escorted to POV via WC by [employer] SPECIALIST.
--- NOTE | 2025-02-01 17:55 | PN ---
Endocrinology progress note DOS:02/01/25 this was late dictation. subjective: glucose are improving. Home diabetic regimen: Hba1c 12.6% she injects novolin 70/30 insulin 20 units AM and 10 units PM at home. she was recently treated for DKA. off metformin due to gi side effects. Past Medical History Patient History: Diabetes mellitus MOTHER, Onset:30's - 40 FATHER, Onset:30's - SISTER, Onset: Hypertension MOTHER, Onset:30' FATHER, Onset: - ADDITIONAL PAST MEDICAL HISTORY: [Diabetes mellitius type2] SOCIAL HISTORY: [Negative for smoking, alcohol use, drug use. Patient lives with the , Stas Sandy. Patient is typically independent of her ADLs. Patient denies difficulty paying her bills.] SURGICAL HISTORY: [ section x6, cholecystectomy] Review of Systems General: No Fever, No Chills, No Night Sweats, No Fatigue, No Malaise, No Appetite, No Other HEENT: No Head Aches, No Visual Changes, No Eye Pain, No Ear Pain, No Dysphasia, No Sinus Congestion, No Post Nasal Drip, No Sore Throat, No Other Pulmonary: No Dyspnea, No Cough, No Pleuritic Chest Pain, No Other Cardiovascular: No: Chest Pain, Palpitations, Orthopnea, Paroxysmal Noc. Dyspnea, Edema, Lt Headedness, Other Gastrointestinal: Nausea, Vomiting; No: Abdominal Pain, Diarrhea, Constipation, Melena, Hematochezia, Other Genitourinary: No Dysuria, No Frequency, No Incontinence, No Hematuria, No Retention, No Other Musculoskeletal: No: other, neck pain, shoulder pain, arm pain, back pain, hand pain, leg pain, foot pain Skin: No Urticaria, No Rash, No Other Neurological: No: Weakness, Numbness, Incoordination, Change in speech, Confusion, Seizures, Other Allergies: Coded Allergies: No Known Drug Allergies (Unverified Allergy, Unknown, 10/02/15) No Active Prescriptions or Reported Meds ASSESSMENT: uncntrolled Diabetes mellitus type2 Home diabetic regimen: Hba1c 12.6% she injects novolin 70/30 insulin 20 units AM and 10 units PM at home. she was recently treated for DKA. Intractable nausea, vomiting, POA pending endoscopy Hypokalemia, POA PLAN: continue novolin 70/30 insulin 20 units AM and 10 units PM. if hyperglycemia then switch to lantus and regular insulin. continue medium dose ssi.. Continue medium dose sliding scale insulin. Monitor glucose q x 6 hourly. Continue carb consistent diet. Keep glucose less than 180 mg/dl. Vitals/Labs Vital Signs Date Time Temp Pulse Resp B/P (MAP) Pulse Ox O2 Delivery O2 Flow Rate FiO2 02/01/25 12:00 98.6 63 18 104/62 99 Room Air 02/01/25 08:10 21 02/01/25 08:00 0 Laboratory Tests 02/01/25 04:11 Medications Current Medications Sodium Chloride 1,000 ml @ 0 mls/hr ONCE ONCE IV Last administered on 01/30/25at 16:49; Start 01/30/25 at 16:30; Stop 01/30/25 at 16:31; Status DC Ondansetron HCl 4 mg ONCE ONCE IVP Last administered on 01/30/25at 16:49; Start 01/30/25 at 16:30; Stop 01/30/25 at 16:31; Status DC Potassium Bicarbonate 25 meq ONCE ONCE PO Last administered on 01/30/25at 17:07; Start 01/30/25 at 17:00; Stop 01/30/25 at 17:01; Status DC Potassium Chloride 100 ml @ 50 mls/hr AD PRN IV Last administered on 01/30/25at 21:09; Start 01/30/25 at 19:30; Stop 02/01/25 at 15:06; Status DC Magnesium Sulfate 50 ml @ 0 mls/hr PROTOCOL PRN IV Last administered on 02/01/25at 06:14; Start 01/30/25 at 19:30; Stop 02/01/25 at 15:06; Status DC Insulin Human Regular INSULIN SLIDING SCAL... ACHS SQ Last administered on 01/31/25at 17:13; Start 01/30/25 at 21:00; Stop 02/01/25 at 15:06; Status DC Lactated Ringer's 1,000 ml @ 100 mls/hr Q10H IV Last administered on 01/31/25at 08:09; Start 01/30/25 at 20:30; Stop 02/01/25 at 15:06; Status DC Enoxaparin Sodium 40 mg DAILY SQ Last administered on 02/01/25at 09:03; Start 01/31/25 at 09:00; Stop 02/01/25 at 15:06; Status DC Famotidine 20 mg DAILY IV Last administered on 01/31/25at 09:09; Start 01/31/25 at 09:00; Stop 01/31/25 at 13:52; Status DC Hydralazine HCl 10 mg Q6H PRN IV; Start 01/30/25 at 20:30; Stop 02/01/25 at 15:06; Status DC Morphine Sulfate 2 mg Q4H PRN IVP; Start 01/30/25 at 20:30; Stop 02/01/25 at 15:06; Status DC Ondansetron HCl 4 mg Q6H PRN IV; Start 01/30/25 at 20:30; Stop 02/01/25 at 15:06; Status DC Insulin Human Isoph/Insulin Regular 20UNIT IN THE AM AND 10UNIT... BIDAC SQ; Start 01/31/25 at 16:30; Stop 02/01/25 at 15:06; Status DC Sodium Chloride 1,000 ml @ 100 mls/hr Q10H IV Last administered on 02/01/25at 02:44; Start 01/31/25 at 14:00; Stop 02/01/25 at 15:06; Status DC Pantoprazole Sodium 40 mg BID PO Last administered on 02/01/25at 09:03; Start 01/31/25 at 21:00; Stop 02/01/25 at 15:06; Status DC Propofol 200 mg STK-MED ONCE IV; Start 02/01/25 at 06:58; Stop 02/01/25 at 06:59; Status DC Lidocaine HCl 100 mg STK-MED ONCE .ROUTE; Start 02/01/25 at 06:58; Stop 02/01/25 at 06:59; Status DC Glycopyrrolate 1 mg STK-MED ONCE .ROUTE; Start 02/01/25 at 06:59; Stop 02/01/25 at 06:59; Status DC Simethicone 40 mg STK-MED ONCE .ROUTE; Start 02/01/25 at 07:08; Stop 02/01/25 at 07:09; Status DC Potassium Chloride 100 ml @ 100 mls/hr AD PRN IV; Start 02/01/25 at 11:30; Stop 02/01/25 at 15:06; Status DC Potassium Chloride 20 meq AD PRN PO; Start 02/01/25 at 11:30; Stop 02/01/25 at 15:06; Status DC Potassium Chloride 20 meq AD PRN PO; Start 02/01/25 at 11:30; Stop 02/01/25 at 15:06; Status DC ANTONY ENRIQUEZ MD Feb 01, 2025 17:55
[2025-02-03 10:10] LABS: C DIFFICILE TOXIN A/B Not Detected (Not Detected); ENTEROAGGREGATIVE ECOLI Not Detected (Not Detected); GIARDIA LAMBLIA Not Detected (Not Detected); PLESIOMONAS SHIGELOIDES Not Detected (Not Detected); SAPOVIRUS Not Detected (Not Detected); SHIGELLA/ENTEROINVASIVE E COLI Not Detected (Not Detected); VIBRIO Not Detected (Not Detected); VIBRIO CHOLERAE Not Detected (Not Detected)
== END 2025-02-01 15:00 | disposition home or self-care (01) | DRG 392 ==
LOC: EDH 15:50 → EDHIP 15:51 → UNDOADMIN 18:43 → EDHIP 19:33 → 4AH 01-31 10:17 → EDHIP 01-31 10:17
PROVIDERS: ADMIT Internal Medicine; ATTEND Internal Medicine
PROC: 0DB68ZX Excision of Stomach, Via Natural or Artificial Opening Endoscopic, Diagnostic (ICD-10-PCS; principal; 2025-02-01)
DX: K29.70 Gastritis, unspecified, without bleeding (principal); E87.6 Hypokalemia; E83.42 Hypomagnesemia; E86.0 Dehydration; E11.9 Type 2 diabetes mellitus without complications; Z51.5 Encounter for palliative care; Z79.4 Long term (current) use of insulin; Z90.49 Acquired absence of other specified parts of digestive tract; Z98.891 History of uterine scar from previous surgery
CPT/HCPCS: 36415; 43239; 80048; 80076; 80305; 81001; 81025; 82010; 82948; 83036; 83690; 83735; 84100; 85025; 85027; 87507; 96374; 99285; A4606; G0378; J1650; J1815; J2003; J2405; J2704; J3475; J3480; J3490; J7030; A4215; A4221; A4222; A4223; A4620; A4663; A7002

== ENCOUNTER 2025-02-28 18:29 | Emergency (ER) | payer SELFPAY ==
[~2025-02-28] VITALS: Ht 165.1 cm; Wt 67.1 kg
[2025-02-28 19:05] LABS: IMMATURE GRANULOCYTE ABSOLUTE 0.04 K/uL (0-1); NUCLEATED RED BLOOD CELLS 0.0 % (0.0-0.19); PLATELET COUNT (AUTO) 480 K/uL (130-400); RED BLOOD CELL COUNT(AUTO) 4.51 MIL/uL (4.00-5.50); RED CELL DISTRIBUTION WIDTH 12.8 % (11.0-15.5); WHITE BLOOD COUNT (AUTO) 6.9 K/uL (4.8-10.8)
[2025-02-28 19:17] LABS: CREATININE 0.4 mg/dL (0.5-1.0); GLOMERULAR FILTR. RATE CALC 131.0 mL/min (>90); GLUCOSE,RANDOM 290.0 mg/dL (70-105); SODIUM SERUM 138.0 mmol/L (136-145); UREA NITROGEN, BLOOD 11.0 mg/dL (7-18)
[2025-02-28 19:21] LABS: ASPARTATE AMINOTRANSFERASE 12.0 U/L (10-37); TOTAL PROTEIN, SERUM 7.8 g/dL (6.0-8.3)
[2025-02-28] MEDS: 0.9%NACL 1000ML 1,000 ML IV ONE (19:42)
[2025-02-28 20:43] LABS: APPEARANCE,URINE CLOUDY (CLEAR); GLUCOSE, URINE (UA) >=1000 mg/dL (NEGATIVE); LEUKOCYTE ESTERASE ,URINE NEGATIVE Leu/uL (NEGATIVE); NITRATE,URINE 2+ (NEGATIVE); OCCULT BLOOD,URINE LARGE (NEGATIVE)
[2025-02-28 20:44] LABS: ADD UA MICROSCOPIC YES
[2025-02-28 20:46] LABS: OTHER CASTS, URINE 1 /LPF (None Seen); SQUAMOUS EPITHELIAL CELL,UR MOD /HPF (0-2)
[2025-02-28] MEDS ORDERED: MACR100 PO (21:33)
[2025-02-28] MEDS ORDERED: FAMO-136 PO (21:38)
[2025-02-28] MEDS ORDERED: ONDA-243 PO (21:38)
--- NOTE | 2025-02-28 21:39 | ERN ---
General Chief Complaint: Nausea,Vomiting,Diarrhea Stated Complaint: VOMITING Time Seen by MD: 18:35 Time Seen by Midlevel: 18:35 Source: patient History of Present Illness Initial Comments Patient is a 39-year-old female with a past medical history of type 2 diabetes presenting to the emergency department for evaluation nausea and vomiting that started earlier today. The patient states her symptoms started after she ate a [place] and egg [place]. She believes her symptoms are attributed to this. Denies any abdominal pain. Denies any other symptoms. Allergies: Coded Allergies: No Known Drug Allergies (Unverified Allergy, Unknown, 10/02/15) Home Meds No Active Prescriptions or Reported Meds Past Medical History Past Medical History: Diabetes-Type II Medical History Other: DKA Past Surgical History: Cholecystectomy, Surgical History Other: TUBAL LIGATION 2020 Social History Social History: Lives with family, Other Female( History) History: Not Applicable ROS Dictation CONSTITUTIONAL: Negative except for HPI HEAD/FACE: Negative except for HPI EENT: Negative except for HPI RESPIRATORY: Negative except for HPI GASTROINTESTINAL/ABDOMINAL: Negative except for HPI GENITOURINARY: Negative except for HPI MUSCULOSKELETAL: Negative except for HPI INTEGUMENTARY: Negative except for HPI NEUROLOGICAL/PSYCH: Negative except for HPI HEMATOLOGIC/LYMPHATIC: Negative except for HPI All Systems Negative, Except as noted above. 13 point review of systems assessed and all negative except for above. Physical Exam Physical Exam Dictation Vital Signs reviewed General Appearance: Alert, oriented x 3, no acute distress, well developed, nourished. Head and Face: non-traumatic. Eyes: PERRL, pink conjunctivas, eyelid no trauma, anterior chamber with arcus senilis. Ears: Pinnas intact and no signs of trauma or erythema ear canals clear and no discharge TM no erythema Nose: No discharge, no bleeding. Oropharynx: Mouth normal, tongue pink, pharynx clear,no erythema, tonsils no exudates, no abscesses noted, mucous membrane moist Neck: Supple, non-tender, no thyromegaly, no masses, no JVD, no bruits Breast:Deferred Chest:No tenderness, no crepitus, no paradoxical movement, no retractions Lungs:Clear, well-ventilated, symmetric, no rales, no wheezing, no rhonchi, no stridor, good breath sounds bilaterally Heart: Regular rate, regular rhythm, no murmur, no gallops Vascular: no peripheral edema, Abdomen: Soft, positive bowel sounds, nondistended, no guarding, nontender, no rebound, no masses no hepatomegaly, no splenomegaly, no Wright's sign, no hernias. Rectal: Deferred Genital: Deferred Neurological: Normal speech, motor function intact, sensory function intact Musculoskeletal: Neck nontender, full range of motion, back nontender, full range of motion, Extremities: nontender, full range of motion Skin: Color pink, dry, no turgor, no rash, no lacerations, no abrasions, no contusions. Lymphatic: Deferred Results Laboratory and Microbiology Lab and Micro Result Laboratory Tests Test 02/28/25 18:51 02/28/25 20:30 White Blood Count 6.9 K/uL (4.8-10.8) Red Blood Count 4.51 MIL/uL (4.00-5.50) Hemoglobin 12.4 g/dL (12.0-16.0) Hematocrit 38.4 % (36-48) Mean Corpuscular Volume 85.1 fL (79-99) Mean Corpuscular Hemoglobin 27.5 pg (27.0-33.0) Mean Corpuscular Hemoglobin Concent 32.3 g/dL (32.0-36.0) Red Cell Distribution Width 12.8 % (11.0-15.5) Platelet Count 480 K/uL (130-400) H Mean Platelet Volume 10.9 fL (7.5-10.5) H Immature Granulocyte % (Auto) 0.6 % (0-1) Neutrophils (%) (Auto) 75.7 % (40.0-77.0) Lymphocytes (%) (Auto) 21.0 % (21.0-51.0) Monocytes (%) (Auto) 2.4 % (3.0-13.0) L Eosinophils (%) (Auto) 0.0 % (0.0-8.0) Basophils (%) (Auto) 0.3 % (0.0-5.0) Neutrophils # (Auto) 5.3 K/uL (1.8-7.7) Lymphocytes # (Auto) 1.5 K/uL (1.0-4.8) Monocytes # (Auto) 0.2 K/uL (0.1-1.0) Eosinophils # (Auto) 0.00 K/uL (0.00-0.70) Basophils # (Auto) 0.02 K/uL (0.00-0.20) Absolute Immature Granulocyte (auto 0.04 K/uL (0-1) Nucleated Red Blood Cells 0.0 % (0.0-0.19) Sodium Level 138 mmol/L (136-145) Potassium Level 3.5 mmol/L (3.5-5.1) Chloride Level 102 mmol/L (101-111) Carbon Dioxide Level 27 mmol/L (21-32) Blood Urea Nitrogen 11 mg/dL (7-18) Creatinine 0.4 mg/dL (0.5-1.0) L Glomerular Filtration Rate Calc 131 mL/min (>90) Random Glucose 290 mg/dL (70-105) H Whole Blood Ketones Quantitative 0.5 mmol/L (0.0-0.6) Total Calcium 8.5 mg/dL (8.5-10.1) Total Bilirubin 0.2 mg/dL (0.2-1.0) Aspartate Amino Transf (AST/SGOT) 12 U/L (10-37) Alanine Aminotransferase (ALT/SGPT) 20 U/L (12-78) Alkaline Phosphatase 66 U/L (50-136) Total Protein 7.8 g/dL (6.0-8.3) Albumin 3.7 g/dL (3.5-5.0) Lipase 17 U/L (16-77) Serum Test, Qualitative NEGATIVE (NEGATIVE) Urine Color LIGHT-BROWN (YELLOW) Urine Appearance CLOUDY (CLEAR) H Urine pH 8.5 (5.0-8.0) H Urine Specific [place] 1.030 (1.001-1.031) Urine Protein 50 mg/dL (NEGATIVE) H Urine Glucose (UA) >=1000 mg/dL (NEGATIVE) H Urine Ketones 40 mg/dL (NEGATIVE) H Urine Occult Blood LARGE (NEGATIVE) H Urine Nitrate 2+ (NEGATIVE) H Urine Bilirubin NEGATIVE mg/dL (NEGATIVE) Urine Urobilinogen 0.2 mg/dL (0.2-1.0) Urine Leukocyte Esterase NEGATIVE Claudette/uL Urine RBC 26-50 /HPF (0-1) H Urine WBC 11-25 /HPF (0-1) H Urine Squamous Epithelial Cells MOD /HPF (0-2) Urine Bacteria RARE /HPF (None Seen) Urine Other Casts 1 /LPF (None Seen) Labs Reviewed?: Yes MDM MDM: Differential diagnosis: DKA, dehydration, gastroenteritis There are no social concerns with this patient. Prescription drug management Prescriptions will include: Zofran, Pepcid Medical management and examination interpretation discussions were had by me with other qualified healthcare professionals as indicated for the patient's care. ED Course Orders Procedure Category Date Status Time Cbc With Differential LAB 02/28/25 Complete 18:37 Comprehensive LAB 02/28/25 Complete Metabolic Panel 18:37 Ketone Blood LAB 02/28/25 Complete Quantitative 18:37 Lipase LAB 02/28/25 Complete 18:37 Urinalysis Profile LAB 02/28/25 Complete 18:37 Testing, LAB 02/28/25 Complete Serum Hcg 18:37 0.9%Nacl 1000ml (Ns PHA 02/28/25 Complete 1000ml) 19:00 Ondansetron 4mg Inj PHA 02/28/25 Complete (Zofran 4mg Inj) 19:00 Ondansetron 4mg Inj PHA 02/28/25 Complete (Zofran 4mg Inj) 20:30 Culture Urine ADELINE 02/28/25 In Process 20:45 Ceftriaxone 1g Vial PHA 02/28/25 Verified (Rocephine 1g Inj) 22:00 Current Medications Medications (Trade) Dose Ordered Sig/Neva Route PRN Reason Start Time Stop Time Status Last Admin Dose Admin Ondansetron HCl (zoFRAN 4MG INJ) 4 mg ONCE ONCE IVP 02/28/25 19:00 02/28/25 19:01 DC 02/28/25 19:42 Ondansetron HCl (zoFRAN 4MG INJ) 4 mg ONCE ONCE IVP 02/28/25 20:30 02/28/25 20:31 DC 02/28/25 20:22 Sodium Chloride 1,000 ml @ 0 mls/hr ONCE ONCE IV 02/28/25 19:00 02/28/25 19:01 DC 02/28/25 19:42 Vital Signs Date Time Temp Pulse Resp B/P (MAP) Pulse Ox O2 Delivery O2 Flow Rate FiO2 02/28/25 18:34 98.2 83 16 146/98 98 Room Air* 0 21 02/28/25 18:32 98.2 83 16 146/98 98 Room Air 0 DX & DISP Disposition: Discharge Departure Impression: Primary Impression: Mild dehydration Additional Impressions: Hyperglycemia, Urinary tract infection, Viral gastroenteritis Condition: Stable Scripts Famotidine (Pepcid) 20 Mg Tablet 1 TAB PO BID for 14 Days, #28 TAB 0 Refills Prov: NATALI THOMAS 02/28/25 Ondansetron (Ondansetron Odt) 4 Mg Tab.rapdis 4 MG PO BID for 7 Days, #14 TAB Prov: NATALI THOMAS 02/28/25 Nitrofurantoin/Nitrofuran Mac (Macrobid) 100 Mg Cap 1 CAP PO BID for 7 Days, #14 CAP 0 Refills Prov: NATALI THOMAS 02/28/25 Additional Instructions: Your blood work today showed an elevated glucose level. You were given IV fluids in the emergency department which helps decrease your glucose. Your urinalysis shows evidence of infection. You were given IV antibiotics and discharged home with a prescription for oral antibiotics. I have also given you a prescription for Zofran and Pepcid which should help with your nausea. Your nausea and vomiting are most likely related to something that you ate. Your symptoms should improve over the next 2-3 days. If your symptoms persist or worsen please report to the ER for further evaluation. Follow up primary care doctor in 2-3 days for repeat evaluation. Referrals: SELF,REFERRAL (PCP) Time of Disposition: 21:34 I have reviewed the case, and I agree with, Diagnosis and Plan I performed the substantive portion of the visit. I have reviewed and personally made and approve the management plan that is documented in the note by myself or the NARCISA. I acknowledge for responsibility for the patient's management plan. NATALI THOMAS Feb 28, 2025 21:39
[2025-02-28 21:44] VITALS: BP 146/98; PULSE 83; RESP 16; TEMP 98.2; O2SAT 98
[2025-03-01] MEDS ORDERED: INSU100I35 SQ ×2 (23:55)
== END 2025-02-28 21:49 | disposition home or self-care (01) ==
LOC: EDH 18:29
DX: E86.0 Dehydration (principal); E11.65 Type 2 diabetes mellitus with hyperglycemia; N39.0 Urinary tract infection, site not specified; A08.4 Viral intestinal infection, unspecified; Z90.49 Acquired absence of other specified parts of digestive tract; Z98.51 Tubal ligation status
CPT/HCPCS: 99284; 96365; 96361; 96375; 80053; 84703; 83690; 85025; 87086 ×2; 87186; 82010; 81001; 36415; 96376; J7030; J0696; J2405 ×2

== ENCOUNTER 2025-03-01 22:01 | Inpatient (IN) | payer SELFPAY ==
[~2025-03-01] VITALS: Ht 165.1 cm; Wt 61.3 kg
[~2025-03-01 22:01] MED LIST changes: +FAMO-136 PO; +MACR100 PO; -NOREPINEPHRIN 4MG/NS 250ML 250 ML IV ONE; +ONDA-243 PO
--- NOTE | 2025-03-01 22:03 | NUR ---
UA CUP PROVIDED
--- NOTE | 2025-03-01 22:19 | ERN ---
ED Note History of Present Illness Stated Complaint: N/V, EPIGASTRIC PAIN Chief Complaint: Abdominal Pain Time Seen by MD: 22:14 Dictation: This is a 39-year-old female who presents to the emergency room with complaints of ongoing epigastric pain nausea and vomitings. She was just seen yesterday and was diagnosed with mild dehydration and she was given prescriptions. However patient stated that her symptoms are persistent and hence she came in for evaluation she has a extensive history of ER visits as well as admissions. 01/25/2025 patient was here for abdominal pain. 01/26/2025 -7 02/20/2025--admitted for DKA 01/30/2025-presented with nausea vomitings again When yesterday she was seen her sugar was 290 serum test was negative. Serum ketones were 0.5 No fever chills or rigors. No hematemesis or melena Temperature 98.7 pulse 94 respirations 20 blood pressure 142/87 with a pulse oximetry of 97% on room air Chronic medical problems include diabetes mellitus and previous history of cholecystectomy Allergies: Coded Allergies: No Known Drug Allergies (Unverified Allergy, Unknown, 10/02/15) Home Meds Active Scripts Famotidine (Pepcid) 20 Mg Tablet, 1 TAB PO BID for 14 Days, #28 TAB 0 Refills Prov:NATALI THOMAS 02/28/25 Ondansetron (Ondansetron Odt) 4 Mg Tab.rapdis, 4 MG PO BID for 7 Days, #14 TAB Prov:NATALI THOMAS 02/28/25 Nitrofurantoin/Nitrofuran Mac (Macrobid) 100 Mg Cap, 1 CAP PO BID for 7 Days, #14 CAP 0 Refills Prov:NATALI THOMAS 02/28/25 Reported Medications Insulin NPH Hum/Reg Insulin Hm (Novolin 70-30 Flexpen) 100 Unit/Ml (70-30) Insuln.pen, 10 UNIT SQ HS, SYRINGE 03/01/25 Insulin NPH Hum/Reg Insulin Hm (Novolin 70-30 Flexpen) 100 Unit/Ml (70-30) Insuln.pen, 20 UNIT SQ DAILY, SYRINGE 03/01/25 Past Medical History Past Medical History: Diabetes-Type II, Other Additional Past Medical Hx: DKA Surgical History: Cholecystectomy, Surgical History Other: TUBAL LIGATION 2019 Family History: Negative Social History: Lives with family, Other History: Not Applicable LMP: Feb 24, 2025 RN Note Reviewed/Agreed w/PFSH: Yes Review of System Dictation Constitutional: Negative for fever,chills, and weight loss Eyes: Negative for injury, pain,redness, and discharge ENT: Negative for injury,pain or swelling Cardiovascular: Negative for chest pain, palpitations, and edema Respiratory: Negative for shortness of breath, cough, and wheezing, Abdomen/GI: Positive for epigastric abdominal pain, nausea, vomiting, denied diarrhea, and constipation Back: Negative for injury and pain : Negative for injury, bleeding and discharge MS/Extremity: Negative for injury and deformity Skin: Negative for rash, and discoloration Neuro: Negative for headache, weakness, numbness, tingling, and seizure Psych: Negative for suicide ideation, homicidal ideation, and hallucinations Initial Vital Sign VS Vital Signs Date Time Temp Pulse Resp B/P (MAP) Pulse Ox O2 Delivery O2 Flow Rate FiO2 03/01/25 22:02 98.8 94 20 142/87 97 Room Air 03/01/25 22:37 0 21 Physical Exam Dictation General: awake, alert, NAD very sick appearing actively vomiting Head/Face: Normocephalic, atraumatic Eyes: PERRL, EOMI, vision at baseline ENT: oral cavity clear, TMs clear, no signs of infection mucous membranes are dry Neck: Trachea midline, supple, no nuchal rigidity Cardiovascular: RRR, normal S1/S2, No MRGs, no JVD Respiratory: CTAB, no respiratory distress, No rales or wheezes Abdomen: Soft, mild tender in the epigastric area, non-distended, normal bowel sounds, no guarding or rebound. Skin: Warm, dry, normal turgor, no rash MS/Extremity: Pulses equal, no cyanosis, neurovascular intact, FROM Neuro: COAx4, GCS 15, strength 5/5, CN 2-12 intact, normal cerebellar exam, normal gait, Psych: Normal behavior, mood, and affect normal Extremities-trace edema without any palpable cords, Homans sign is negative Results (Laboratory/Radiology) Laboratory/Radiology Laboratory Tests Test 03/01/25 22:19 03/01/25 23:52 White Blood Count 6.9 K/uL (4.8-10.8) Red Blood Count 4.74 MIL/uL (4.00-5.50) Hemoglobin 13.0 g/dL (12.0-16.0) Hematocrit 39.8 % (36-48) Mean Corpuscular Volume 84.0 fL (79-99) Mean Corpuscular Hemoglobin 27.4 pg (27.0-33.0) Mean Corpuscular Hemoglobin Concent 32.7 g/dL (32.0-36.0) Red Cell Distribution Width 13.0 % (11.0-15.5) Platelet Count 548 K/uL (130-400) H Mean Platelet Volume 10.9 fL (7.5-10.5) H Immature Granulocyte % (Auto) 0.3 % (0-1) Neutrophils (%) (Auto) 63.8 % (40.0-77.0) Lymphocytes (%) (Auto) 30.2 % (21.0-51.0) Monocytes (%) (Auto) 5.6 % (3.0-13.0) Eosinophils (%) (Auto) 0.0 % (0.0-8.0) Basophils (%) (Auto) 0.1 % (0.0-5.0) Neutrophils # (Auto) 4.4 K/uL (1.8-7.7) Lymphocytes # (Auto) 2.1 K/uL (1.0-4.8) Monocytes # (Auto) 0.4 K/uL (0.1-1.0) Eosinophils # (Auto) 0.00 K/uL (0.00-0.70) Basophils # (Auto) 0.01 K/uL (0.00-0.20) Absolute Immature Granulocyte (auto 0.02 K/uL (0-1) Nucleated Red Blood Cells 0.0 % (0.0-0.19) Sodium Level 135 mmol/L (136-145) L Potassium Level 3.5 mmol/L (3.5-5.1) Chloride Level 98 mmol/L (101-111) L Carbon Dioxide Level 27 mmol/L (21-32) Blood Urea Nitrogen 22 mg/dL (7-18) H Creatinine 0.6 mg/dL (0.5-1.0) Glomerular Filtration Rate Calc 118 mL/min (>90) Random Glucose 302 mg/dL (70-105) H Whole Blood Ketones Quantitative 2.7 mmol/L (0.0-0.6) H Total Calcium 9.0 mg/dL (8.5-10.1) Lipase 32 U/L (16-77) Serum Test, Qualitative NEGATIVE (NEGATIVE) Whole Blood Glucose 277 MG/DL (70-110) H Labs Reviewed?: Yes ED Course ED Course Orders Procedure Category Date Status Time Vital Signs Per CPOE 03/01/25 Transmitted Routine 22:05 Saline Lock Iv CPOE 03/01/25 Transmitted 22:05 Cbc With Differential LAB 03/01/25 Complete 22:05 Lipase LAB 03/01/25 Complete 22:05 Testing, LAB 03/01/25 Complete Serum Hcg 22:05 Urinalysis Profile LAB 03/01/25 Logged 22:05 Basic Metabolic Panel LAB 03/01/25 Complete 22:05 Bedside Glucose CPOE 03/01/25 Transmitted Fingerstick 22:05 Ketone Blood LAB 03/01/25 Complete Quantitative 22:12 0.9%Nacl 1000ml (Ns PHA 03/01/25 Complete 1000ml) 22:30 Dka Prtcl:Restrict To CPOE 03/01/25 Transmitted Icu/Ccu 23:23 Dka Protcl:Dc All CPOE 03/01/25 Transmitted Meds/Feeding 23:23 Dka Protocol: Bmp Q4h CPOE 03/01/25 Transmitted Until 23:23 0.9%Nacl 1000ml (Ns PHA 03/01/25 In Process 1000ml) 23:30 D5w-1/2 Ns/20meq Kcl PHA 03/01/25 In Process (D5w-1/2 Ns/20meq K 23:30 Ns-20 Meq Kcl 1000ml PHA 03/01/25 In Process (Ns-20 Meq Kcl 1000 23:45 Magnesium 2gm Premix PHA 03/01/25 In Process 50ml (Magnesium 2gm 23:30 Insulin Regular, PHA 03/01/25 In Process Human 3ml (Humulin R 23:30 Mannitol 20% 250ml PHA 03/01/25 Complete Bag (Osmitrol 20% 250 23:30 Dka Protocol: Bs, Vs, CPOE 03/01/25 Transmitted Neuro 23:23 Dextrose 5 %-0.45 % PHA 03/01/25 In Process Nacl (D5 1/2ns) 23:30 Arterial Blood Gas RT 8/29/25 Transmitted 23:26 Current Medications Medications (Trade) Dose Ordered Sig/Neva Route PRN Reason Start Time Stop Time Status Last Admin Dose Admin Dextrose/Sodium Chloride 1,000 ml @ 0 mls/hr AD IV 03/01/25 23:30 03/31/25 23:29 Insulin Human Regular 100 unit/ Sodium Chloride 101 ml @ 0 mls/hr PROTOCOL IV 03/01/25 23:30 03/31/25 23:29 Magnesium Sulfate 50 ml @ 0 mls/hr PROTOCOL IV 03/01/25 23:30 03/31/25 23:29 Mannitol (Osmitrol 20% 250ml Bag) 34 gm AD IV 03/01/25 23:30 03/01/25 23:30 DC Potassium Chloride/Dextrose/ Sod Cl 1,000 ml @ 0 mls/hr AD IV 03/01/25 23:30 03/31/25 23:29 Potassium Chloride/Sodium Chloride 1,000 ml @ 0 mls/hr PROTOCOL IV 03/01/25 23:45 03/31/25 23:44 Sodium Chloride 1,000 ml @ 0 mls/hr ONCE ONCE IV 03/01/25 22:30 03/01/25 22:32 DC 03/01/25 22:30 Sodium Chloride 1,000 ml @ 200 mls/hr PROTOCOL IV 03/01/25 23:30 03/31/25 23:29 Vital Signs Date Time Temp Pulse Resp B/P (MAP) Pulse Ox O2 Delivery O2 Flow Rate FiO2 03/01/25 23:42 92 18 140/75 99 Room Air* 0 21 03/01/25 22:37 97 17 141/75 97 Room Air* 0 21 03/01/25 22:02 98.8 94 20 142/87 97 Room Air We will perform diagnostic labs, and administer medications according to the patient's complaint. Once the results are available, will review and personally interpreted the labs to rule out any acute life-threatening emergency the trach require immediate intervention and treatment. I will then re-evaluate the patient after treatment and diagnostic exams have return to determine whether the patient requires any further testing, can safely be discharged home or need further admission to hospital for additional treatment and evaluation. 10:40 p.m. labs reviewed CBC is with a normal limits BNP 7 is significant for a BUN and creatinine of 22 and 0.6 with a glucose of 302. Serum ketones are 2.7. Urinalysis is significant for UTI. Patient is severely dehydrated with metabolic alkalosis masking the early DKA Recently her hemoglobin A1c is 12.3. Serum test is negative I recommended admission to the hospital and she is agreeable spouse was also present during my discussion. I updated her and counseled her on diligent compliance with insulin and optimal control of hemoglobin A1c and sugars and she verbalized understanding 12:22 a.m.-patient accepted by [facility]-level provider for hospitalist group for admission and further management Medical Decision Making MDM Differential diagnosis: Gastritis, esophagitis, DKA, gastroenteritis, medication side effects, enterocolitis Rationale: Tests considered and ordered secondary to shared decision making include: labs, ECG and radiology Previous outside records reviewed: Old ER visits. Risk of complication and/or morbidity or mortality of patient management: None Medications-Per medication reconciliation Need for hospitalization: Patient does meet criteria for hospitalization. Need for emergency major/minor surgery: No There are no social concerns with this patient. Prescription drug management Prescriptions will include symptomatic care Patient's prior external medical records from other ER visits were reviewed by me as indicated. Prior testing and results from previous visits were reviewed. Prior tests were taken into account with medical decision making and resource utilization, independent historian/historians were used to obtain complete medical history. I independently interpreted the test that were performed, results were reviewed by me and considered findings on radiology if ordered. Medical management and examination interpretation discussions were had by me with other qualified healthcare professionals as indicated for the patient's care. Problem List Problem List: (1) DKA (diabetic ketoacidosis) (2) Volume depletion (3) UTI (urinary tract infection) (4) Intractable nausea and vomiting (5) Elevated blood ketone body level DX & DISP Disposition: Inpatient Decision to Admit Time: 23:31 Departure Impression: Primary Impression: DKA (diabetic ketoacidosis) Additional Impressions: Intractable nausea and vomiting, Dehydration, Elevated blood ketone body level, Urinary tract infection Condition: Stable Additional Instructions: Patient was informed of all the diagnostic labs and procedures conducted in the emergency room today and demonstrated understanding of the results. I personally reviewed and interpreted all the diagnostic exams performed in the ER today. The patient will be admitted to the hospital for further treatment and evaluation. Disposition-admit to facility Condition-stable/guarded Course-uncertain at this time Pain status-decreased Assessment-exam unchanged Admission Certification- I certify that the patients status is appropriate and is based on my best clinical judgment and the patient's condition as documented in the medical records Referrals: SELF,REFERRAL (PCP) LANDON LOCKETT MD Mar 01, 2025 22:19
[2025-03-01 22:29] LABS: IMMATURE GRANULOCYTE ABSOLUTE 0.02 K/uL (0-1); NUCLEATED RED BLOOD CELLS 0.0 % (0.0-0.19); PLATELET COUNT (AUTO) 548 K/uL (130-400); RED BLOOD CELL COUNT(AUTO) 4.74 MIL/uL (4.00-5.50); RED CELL DISTRIBUTION WIDTH 13.0 % (11.0-15.5); WHITE BLOOD COUNT (AUTO) 6.9 K/uL (4.8-10.8)
[2025-03-01] MEDS: 0.9%NACL 1000ML 1,000 ML IV ONE (22:30)
[2025-03-01 22:37] LABS: CREATININE 0.6 mg/dL (0.5-1.0); GLOMERULAR FILTR. RATE CALC 118.0 mL/min (>90); GLUCOSE,RANDOM 302.0 mg/dL (70-105); SODIUM SERUM 135.0 mmol/L (136-145); UREA NITROGEN, BLOOD 22.0 mg/dL (7-18)
[2025-03-01] MEDS ORDERED: D5W-1/2 NS/20MEQ KCL 1,000 ML IV SCH (23:30)
[2025-03-01] MEDS ORDERED: MAGNESIUM 2GM PREMIX 50ML 50 ML IV SCH (23:30)
[2025-03-01] MEDS ORDERED: MANNITOL 20% 250ML IV.SOLN IV SCH (23:30)
[2025-03-01] MEDS ORDERED: INSULIN REGULAR, HUMAN 3ML 100 UNIT in 0.9%NACL 100ML 100 ML IV SCH (23:30)
[2025-03-01] MEDS ORDERED: 0.9%NACL 1000ML 1,000 ML IV SCH (23:30)
[2025-03-01] MEDS ORDERED: DEXTROSE 5 %-0.45 % NACL 1,000 ML IV SCH (23:30)
[2025-03-01] MEDS ORDERED: NS-20 MEQ KCL 1000ML 1,000 ML IV SCH (23:45)
[2025-03-01] MEDS ORDERED: INSU100I35 SQ ×2 (23:55)
[2025-03-02] VITALS (9 sets, daily range): BP systolic 93–165; BP diastolic 55–93; PULSE 59–81; RESP 17–18; TEMP 98.6–99.8; O2SAT 94–98
[2025-03-02 00:34] LABS: ABG BASE EXCESS -2.1 mmol/L (-2.0-3.0); ABG HCO3 21.6 mmol/L (21.0-28.0); ABG OXYGEN SATURATION 94.3 % (94.0-98.0); ABG PCO2 34 mmHg (32-45); ABG PH 7.424 (7.350-7.450); CARBON MONOXIDE 0.5 % (0.5-1.5); DEVICE COMMENT RB NURSE MANNY; PO2, ARTERIAL BG 71.9 mmHg (83.0-108.0); TEMPERATURE, CELSIUS BG 37.0 CELSIUS (35.5-37.0); VENT MODE, BG ROOMAIR (ROOM AIR)
[2025-03-02] MEDS: 0.9%NACL 1000ML 1,000 ML IV SCH (02:21)
[2025-03-02] MEDS: 0.9%NACL 1000ML 1,000 ML IV ONE (02:21)
[2025-03-02] MEDS ORDERED: LACTULOSE 20 GM/30 ML UDCUP PO PRN (02:30)
--- NOTE | 2025-03-02 02:32 | HP ---
[facility] HISTORY AND PHYSICAL Date of Service: Mar 02, 2025 Time of Service: 02:27 Attending/supervising physicians: Dr. Polo Guillaume and Dr. Edi Guillaume HISTORY OF PRESENT ILLNESS: Ms. Flores is a 39-year-old female with a history of DM and surgical history of cholecystectomy who [place] [facility] [place] for evaluatoin of ongoing epigastric pain, nausea, and vomiting. She was just seen yesterday and was diagnosed with mild dehydration and she was given prescriptions. However patient stated that her symptoms are persistent and hence she came in for evaluation she has a extensive history of ER visits as well as admissions. The patient denied any fever, chills, rigors, hematemesis or melena VS on arrival: Temperature 98.7, pulse 94, respirations 20, blood pressure 142/87, 97% on room air. ABGs: PH 7.424, pCO2 34, PO2 71.9, bicarbonate 21.6, O2 sats 94.3, base excess -2.1, Labs: Ketones 2.7, WBCs WNL. Platelets 548, MPV 10.9, Na 135, chloride 98, BUN 22, GFR 118, glucose 302. COVID positive. UA: + leuk EST (positive Gram-negative rods on 02/28/2025). CT abdomen and pelvis with contrast: No acute process in the abdomen or pelvis. Status post cholecystectomy. Mildly dilated CBD, which could be secondary to postch olecystectomy physiological changes. Further evaluation with MRCP may be done if there is a clinical suspicion of biliary obstruction. Simple renal cortical cyst on the left side. Compared to the prior study, there is no significant interval change. Per chart review: The patient was here for nausea and vomiting on 01/25/2025, serum ketones were 0.5, was discharged with diagnosis of mild dehydration, hyperglycemia, UTI, viral gastroenteritis. She also presented [place] [facility] [place] for abdominal pain and was discharged from ED. On 01/26/2025 she was admitted for DKA, then returned on 01/30/2025 for intractable nausea and vomiting and was admitted and was discharged home on 02/01/25. ED provider requested patient be admitted to the hospital with the diagnosis of DKA, volume depletion, UTI, intractable nausea and vomiting, elevated ketones body level. I assessed the patient at bedside in room number ED 15. Significant other was at bedside. Patient's breathing was even, unlabored, in no distress. Patient reports abdominal pain. Patient denies chest pain, shortness of breath, any other pain, problem or concern. REVIEW OF SYSTEMS 12-point ROS reviewed with the patient. All pertinent positives mentioned ab ove. Otherwise negative, noncontributory, nonpertinent. PAST MEDICAL HISTORY: As mentioned above PAST SURGICAL HISTORY: Cholecystectomy, , tubal ligation PAST SOCIAL HISTORY: Denied alcohol, tobacco, illicit drug use FAMILY HISTORY: Noncontributory Coded Allergies: No Known Drug Allergies (Unverified Allergy, Unknown, 10/02/15) PHYSICAL EXAM GENERAL APPEARANCE: The patient is awake, alert, and oriented, in no acute cardiopulmonary distress. NEUROLOGICAL: Cranial nerves II-XII grossly intact. Motor is 5/5 in bilateral upper and lower extremities proximal to distal. No sensory deficits. HEENT: Face is symmetric. Pupils are equal and reactive. Extraocular movements are intact. NECK: Supple. No JVD. No thyromegaly. No submental, submandibular, pre- /postauricular, occipital or supraclavicular lymphadenopathy. CHEST: Normal chest expansion. No Telemetry. LUNGS: Absence of any rales, rhonchi or any wheezing. CARDIOVASCULAR: Regular. S1 and S2 normal. No appreciable rubs, murmurs or gallops. ABDOMEN: Soft, nontender, and nondistended. There is no rebound, voluntary guarding, or rigidity. : Deferred. No Nuñez. EXTREMITIES: Non-edematous and not cyanotic. No clubbing. Good capillary refill. SKIN: No skin breakdown. Vital Sign (Last 24 Hours) 03/01/25 03/02/25 22:02 01:49 Temp 98.8 Pulse 88 Resp 18 B/P (MAP) 127/81 Pulse Ox 98 O2 Delivery Room Air* O2 Flow Rate 0 FiO2 21 LABS: Laboratory: Test 03/02/25 00:32 03/01/25 23:52 03/01/25 22:19 Range/Units Blood Gas Specimen Type Arterial Arterial Blood pH 7.424 7.350-7.450 Arterial Blood Partial Pressure CO2 34 32-45 mmHg Arterial Blood Partial Pressure O2 71.9 L 83.0-108.0 mmHg Arterial Blood HCO3 21.6 21.0-28.0 mmol/L Arterial Blood Oxygen Saturation 94.3 94.0-98.0 % Arterial Blood Base Excess -2.1 L -2.0-3.0 mmol/L Hemoglobin (Blood Gas) 12.9 12.0-16.0 g/dL Sodium (Blood Gas) 138 136-145 MMOL/L Bedside Potassium (Blood Gas) 3.5 3.4-4.5 MMOL/L Bedside Chloride (Blood Gas) 102 98-107 MMOL/L Bedside Glucose (Blood Gas) 261 H 65-95 MG/DL Bedside Ionized Calcium (Blood Gas) 1.16 1.15-1.33 MMOL/L Bedside Lactic Acid (Blood Gas) 1.17 H 0.36-0.75 MMOL/L Blood Gas Temperature 37.0 35.5-37.0 CELSIUS Blood Gas Vent Mode ROOMAIR ROOM AIR FiO2 21.0 % Blood Gas Specimen Comment RB NURSE SHASHANK Whole Blood Glucose 277 H 70-110 MG/DL White Blood Count 6.9 4.8-10.8 K/uL Red Blood Count 4.74 4.00-5.50 MIL/uL Hemoglobin 13.0 12.0-16.0 g/dL Hematocrit 39.8 36-48 % Mean Corpuscular Volume 84.0 79-99 fL Mean Corpuscular Hemoglobin 27.4 27.0-33.0 pg Mean Corpuscular Hemoglobin Concent 32.7 32.0-36.0 g/dL Red Cell Distribution Width 13.0 11.0-15.5 % Platelet Count 548 H 130-400 K/uL Mean Platelet Volume 10.9 H 7.5-10.5 fL Immature Granulocyte % (Auto) 0.3 0-1 % Neutrophils (%) (Auto) 63.8 40.0-77.0 % Lymphocytes (%) (Auto) 30.2 21.0-51.0 % Monocytes (%) (Auto) 5.6 3.0-13.0 % Eosinophils (%) (Auto) 0.0 0.0-8.0 % Basophils (%) (Auto) 0.1 0.0-5.0 % Neutrophils # (Auto) 4.4 1.8-7.7 K/uL Lymphocytes # (Auto) 2.1 1.0-4.8 K/uL Monocytes # (Auto) 0.4 0.1-1.0 K/uL Eosinophils # (Auto) 0.00 0.00-0.70 K/uL Basophils # (Auto) 0.01 0.00-0.20 K/uL Absolute Immature Granulocyte (auto 0.02 0-1 K/uL Nucleated Red Blood Cells 0.0 0.0-0.19 % Sodium Level 135 L 136-145 mmol/L Potassium Level 3.5 3.5-5.1 mmol/L Chloride Level 98 L 101-111 mmol/L Carbon Dioxide Level 27 21-32 mmol/L Blood Urea Nitrogen 22 H 7-18 mg/dL Creatinine 0.6 0.5-1.0 mg/dL Glomerular Filtration Rate Calc 118 >90 mL/min Random Glucose 302 H 70-105 mg/dL Whole Blood Ketones Quantitative 2.7 H 0.0-0.6 mmol/L Total Calcium 9.0 8.5-10.1 mg/dL Lipase 32 16-77 U/L Serum Test, Qualitative NEGATIVE NEGATIVE Current Medications Medications (Trade) Dose Ordered Sig/Neva Route PRN Reason Start Time Stop Time Status Last Admin Dose Admin Acetaminophen (TYLenol 325MG TAB) 650 mg Q6H PRN PO FEVER/MILD PAIN LEVEL 1-3 03/02/25 02:30 04/01/25 02:29 Acetaminophen (TYLenol 650MG SUPPOSITORY) 650 mg Q6H PRN RC FEVER / MILD PAIN 1-3 IF NPO 03/02/25 02:30 04/01/25 02:29 Dextrose/Sodium Chloride 1,000 ml @ 0 mls/hr AD IV 03/01/25 23:30 03/02/25 02:00 DC Docusate Sodium (COLace 100MG CAP) 100 mg BID PRN PO c 03/02/25 02:30 04/01/25 02:29 Famotidine (Pepcid 20mg Tab) 20 mg BID PO 03/02/25 09:00 04/01/25 08:59 Insulin Human Regular (humuLIN R 100 UNIT/ML 3ML) INSULIN SLIDING SCAL... Q4H SQ 03/02/25 02:30 04/01/25 02:29 Insulin Human Regular 100 unit/ Sodium Chloride 101 ml @ 0 mls/hr PROTOCOL IV 03/01/25 23:30 03/02/25 02:00 DC Labetalol HCl (TRANdate 20MG SYG) 10 mg Q2H PRN IV SBP GREATER THAN 160 03/02/25 02:30 04/01/25 02:29 Lactulose (Constulose 20gm/ 30ml Udcup) 20 gm Q6H PRN PO CONSTIPATION 03/02/25 02:30 04/01/25 02:29 Magnesium Sulfate 50 ml @ 0 mls/hr PROTOCOL IV 03/01/25 23:30 03/02/25 02:00 DC Mannitol (Osmitrol 20% 250ml Bag) 34 gm AD IV 03/01/25 23:30 03/01/25 23:30 DC Morphine Sulfate (morPHINE 2MG SYG) 2 mg Q4H PRN IVP MODERATE PAIN (4-6) 03/02/25 02:30 03/09/25 02:29 Ondansetron HCl (zoFRAN 4MG INJ) 4 mg Q6H PRN IVP NAUSEA/VOMITING 03/02/25 02:30 04/01/25 02:29 Potassium Chloride/Dextrose/ Sod Cl 1,000 ml @ 0 mls/hr AD IV 03/01/25 23:30 03/02/25 02:00 DC Potassium Chloride/Sodium Chloride 1,000 ml @ 0 mls/hr PROTOCOL IV 03/01/25 23:45 03/02/25 02:00 DC Sodium Chloride 1,000 ml @ 150 mls/hr Q6H40M IV 03/02/25 02:10 04/01/25 02:09 03/02/25 02:21 150 MLS/HR Sodium Chloride 1,000 ml @ 200 mls/hr PROTOCOL IV 03/01/25 23:30 03/02/25 02:00 DC Temazepam (restORIL 15 MG CAP) 15 mg HS PRN PO INSOMNIA/SLEEP 03/02/25 02:30 04/01/25 02:29 DIAGNOSTICS / RADIOLOGY: [ ] ASSESSMENT: Acute dehydration, POA, s/p nausea and vomiting Dilated CBD, mild, per CT on 03/02/2025 Acute hypoxemia, POA Coronavirus infection, POA Acute complicated cystitis, POA UTI on 02/28/2025 with positive urine culture for Gram-negative rods Diabetes mellitus with hyperglycemia, POA Ketonuria and ketonemia, POA Acute on chronic abdominal pain, POA, with frequent ED visits for abdominal pain & n/v Simple renal cortical cyst on left side, per CT on 03/02/2025 Thrombocytosis, POA Electrolyte derangement (hyponatremia, hypochloremia), POA History of DKA PLAN: Admit to PCCU with telemetry monitoring. Consult GI for recurrent abdominal pain and recurrent N/V and dilated CBD. P.r.n. medications for: Pain management, fever, nausea, vomiting, hypertension, constipation. NS L bolus now, then NS at 150 mL an hour. Keep NPO for now due to intractable nausea vomiting and abdominal pain. Consider advancing to clear diet once patient is no longer nauseated or vomiting. Glucometer checks q.4 hours a.c. and HS with insulin regular sliding scale per protocol. Start Rocephin 2 g IV daily. Pending culture sensitivity for UA collected on 02/28/2025 Monitor respirations status. O2 as needed to keep SpO2 equal greater than 92%. RT to provide IS and education on use. Albuterol and Atrovent as needed for shortness of breath. Avoid steroids to avoid DKA and due to patient's breathing is even and unlabored on room air. Blood pressure checks every 4 hours and as needed. Reconcile home medications once available. Monitor renal and liver function. Monitor electrolytes and treat accordingly. A.m. labs. GI and DVT prophylaxis. Further plan/orders per hospitalization course. ADVANCED CARE PLANNING 1. Which of the following were discussed? Hospice Care - No Therapeutic options - Yes Advance Directives - Yes Other discussions - 2. Discussed with who? The patient 3. Voluntary nature of this service was explained to the patient? Yes 4. Amount of time spent - __ over 35 minutes 5. Reviewed by Physician? (if this service was performed by NPP) Yes ATTESTATION BY PHYSICIAN I have seen and examined the patient. I reviewed the documentation, medical decision making, and treatment plan as noted by the resident provider above. I agree with the findings and plan of care. MATILDA AMEZQUITA ROLL ON WORKER Mar 02, 2025 02:32
[2025-03-02 03:12] LABS: RAPID GROUP A STREP negative (NEGATIVE)
[2025-03-02 03:17] LABS: SARS-CoV-2, RNA, NAAT POSITIVE SARS CoV-2 (NEGATIVE)
[2025-03-02 03:21] LABS: INFLUENZA TYPE A Negative For Type A (NEGATIVE); INFLUENZA TYPE B Negative For Type B (NEGATIVE)
[2025-03-02] MEDS ORDERED: IOHEXOL-350 75 ML VIAL IV ONE (03:25)
--- NOTE | 2025-03-02 04:04 | NUR ---
PT ARRIVED TO ROOM VIA STRETCHER. EDUCATED PT IN USE OF CALL LIGHT AND TO NOT GET UP BY SELF, VERBALIZED UNDERSTANDING. LEFT BED LOW, LOCKED, RAILS UPX2, AND WITH CALL LIGHT IN REACH.
--- NOTE | 2025-03-02 04:14 | HMCIMG ---
EXAM: CT Abdomen and Pelvis with IV contrast CLINICAL HISTORY: Worsening abdominal pain. TECHNIQUE: Postcontrast thin collimated axial CT images of the abdomen and pelvis were obtained with sagittal and coronal reformatted images also submitted. CT scan is done according to ALARA (As Low As Reasonably Achievable). COMPARISON: CT abdomen and pelvis dated 01/26/2025. FINDINGS: The included lungs are clear. Mild fatty liver. Status post cholecystectomy. Mildly dilated CBD measures up to 1 cm in diameter. No focal abnormality within the pancreas, spleen, or adrenals. 0.8 cm nonenhancing Bosniak class I cyst at the left renal lower pole. Grossly unremarkable urinary bladder. The uterus and ovaries are within normal limits. No obvious bowel wall thickening, dilatation, or obstruction. Unremarkable appendix. Grossly unremarkable abdominal vessels. No pathological lymphadenopathy in the abdomen or pelvis. No ascites or pneumoperitoneum. No acute bony abnormality. Degenerative osseous changes. 0.7 cm sclerotic focus in the left proximal femur, likely bony island. IMPRESSIONS: No acute process in the abdomen or pelvis. Status post cholecystectomy. Mildly dilated CBD, which could be secondary to postcholecystectomy physiological changes. Further evaluation with MRCP may be done if there is a clinical suspicion of biliary obstruction. Simple renal cortical cyst on the left side. Compared to the prior study, there is no significant interval change. /Lawn
[2025-03-02 04:24] LABS: AMPHET/METH SCREEN,URINE NEGATIVE (NEGATIVE); BARBITURATE SCREEN, URINE NEGATIVE (NEGATIVE); CANNABINOID SCREEN,URINE NEGATIVE (NEGATIVE); COCAINE SCREEN,URINE NEGATIVE (NEGATIVE)
[2025-03-02 06:10] LABS: APPEARANCE,URINE CLEAR (CLEAR); GLUCOSE, URINE (UA) >=1000 mg/dL (NEGATIVE); LEUKOCYTE ESTERASE ,URINE 75 Leu/uL (NEGATIVE); NITRATE,URINE NEGATIVE (NEGATIVE); OCCULT BLOOD,URINE SMALL (NEGATIVE); SQUAMOUS EPITHELIAL CELL,UR RARE /HPF (0-2)
[2025-03-02 06:30] LABS: NUCLEATED RED BLOOD CELLS 0.0 % (0.0-0.19); PLATELET COUNT (AUTO) 413.0 K/uL (130-400); RED BLOOD CELL COUNT(AUTO) 3.75 MIL/uL (4.00-5.50); RED CELL DISTRIBUTION WIDTH 12.9 % (11.0-15.5); WHITE BLOOD COUNT (AUTO) 9.7 K/uL (4.8-10.8)
[2025-03-02 06:56] LABS: ASPARTATE AMINOTRANSFERASE 10.0 U/L (10-37); CREATININE 0.3 mg/dL (0.5-1.0); GLOMERULAR FILTR. RATE CALC 140.0 mL/min (>90); GLUCOSE,RANDOM 179.0 mg/dL (70-105); PHOSPHORUS 3.0 mg/dL (2.5-4.9); SODIUM SERUM 136.0 mmol/L (136-145); TOTAL PROTEIN, SERUM 6.0 g/dL (6.0-8.3); UREA NITROGEN, BLOOD 15.0 mg/dL (7-18)
[2025-03-02] MEDS ORDERED: DEXTROSE 50%-WATER 50 ML DISP.SYRIN IV PRN (07:00)
[2025-03-02] MEDS ORDERED: ALBUTEROL 0.083% 2.5 MG/3 ML INH IH PRN (07:00)
[2025-03-02] MEDS ORDERED: GLUCAGON 1MG KIT 1 MG ML IM PRN (07:00)
[2025-03-02] MEDS: FAMOTIDINE 20MG TAB PO SCH (09:29)
--- NOTE | 2025-03-02 13:37 | PN ---
[facility] PROGRESS NOTE Date of Service: Mar 02, 2025 Time of Service: 13:36 SUBJECTIVE: [ ] 03/02/25 Patient seen and examined. Reports nausea. Labs reviewed REVIEW OF SYSTEMS 12-point ROS reviewed with the patient. All pertinent positives mentioned above. Otherwise negative, noncontributory, nonpertinent. PHYSICAL EXAM GENERAL APPEARANCE: The patient is awake, alert, and oriented, in no acute cardiopulmonary distress. NEUROLOGICAL: Cranial nerves II-XII grossly intact. Motor is 5/5 in bilateral upper and lower extremities proximal to distal. No sensory deficits. HEENT: Face is symmetric. Pupils are equal and reactive. Extraocular movements are intact. NECK: Supple. No JVD. No thyromegaly. No submental, submandibular, pre- /postauricular, occipital or supraclavicular lymphadenopathy. CHEST: Normal chest expansion. No Telemetry. LUNGS: Absence of any rales, rhonchi or any wheezing. CARDIOVASCULAR: Regular. S1 and S2 normal. No appreciable rubs, murmurs or gallops. ABDOMEN: Soft, nontender, and nondistended. There is no rebound, voluntary guarding, or rigidity. : Deferred. No Nuñez. EXTREMITIES: Non-edematous and not cyanotic. No clubbing. Good capillary refill. SKIN: No skin breakdown. Vital Signs (last 8hr) Date Time Temp Pulse Resp B/P (MAP) Pulse Ox O2 Delivery O2 Flow Rate FiO2 03/02/25 11:00 99.9 61 18 93/55 97 Room Air 03/02/25 08:00 94 Room Air* 0 21 03/02/25 07:09 72 18 N/A Room Air 21 03/02/25 07:00 99.1 59 17 94/55 95 Room Air LABS: Laboratory: Test 03/02/25 10:18 03/02/25 06:15 03/02/25 03:41 03/02/25 02:56 Range/Units Whole Blood Glucose 84 70-110 MG/DL White Blood Count 9.7 # 4.8-10.8 K/uL Red Blood Count 3.75 #L 4.00-5.50 MIL/uL Hemoglobin 10.4 L 12.0-16.0 g/dL Hematocrit 32.1 L 36-48 % Mean Corpuscular Volume 85.6 79-99 fL Mean Corpuscular Hemoglobin 27.7 27.0-33.0 pg Mean Corpuscular Hemoglobin Concent 32.4 32.0-36.0 g/dL Red Cell Distribution Width 12.9 11.0-15.5 % Platelet Count 413 H 130-400 K/uL Mean Platelet Volume 10.6 H 7.5-10.5 fL Nucleated Red Blood Cells 0.0 0.0-0.19 % Sodium Level 136 136-145 mmol/L Potassium Level 3.5 3.5-5.1 mmol/L Chloride Level 105 101-111 mmol/L Carbon Dioxide Level 26 21-32 mmol/L Blood Urea Nitrogen 15 7-18 mg/dL Creatinine 0.3 L 0.5-1.0 mg/dL Glomerular Filtration Rate Calc 140 >90 mL/min Random Glucose 179 H 70-105 mg/dL Hemoglobin A1c 10.4 H 4.0-6.0 % Estimated Average Glucose (eAG) 252 H 70-126 mg/dL Whole Blood Ketones Quantitative 0.8 H 0.0-0.6 mmol/L Total Calcium 7.7 L 8.5-10.1 mg/dL Phosphorus Level 3.0 2.5-4.9 mg/dL Magnesium Level 1.90 1.80-2.40 mg/dL Total Bilirubin 0.3 0.2-1.0 mg/dL Aspartate Amino Transf (AST/SGOT) 10 10-37 U/L Alanine Aminotransferase (ALT/SGPT) 14 12-78 U/L Alkaline Phosphatase 45 L 50-136 U/L Total Protein 6.0 6.0-8.3 g/dL Albumin 2.7 L 3.5-5.0 g/dL Thyroid Stimulating Hormone (TSH) 1.29 # 0.36-3.74 uIU/mL Urine Color LIGHT-YELLOW YELLOW Urine Appearance CLEAR CLEAR Urine pH 6.0 5.0-8.0 Urine Specific [place] 1.032 H 1.001-1.031 Urine Protein 10 H NEGATIVE mg/dL Urine Glucose (UA) >=1000 H NEGATIVE mg/dL Urine Ketones 150 H NEGATIVE mg/dL Urine Occult Blood SMALL H NEGATIVE Urine Nitrate NEGATIVE NEGATIVE Urine Bilirubin NEGATIVE NEGATIVE mg/dL Urine Urobilinogen 0.2 0.2-1.0 mg/dL Urine Leukocyte Esterase 75 H NEGATIVE [place]/uL Urine RBC 2-5 H 0-1 /HPF Urine WBC 26-50 H 0-1 /HPF Urine Squamous Epithelial Cells RARE 0-2 /HPF Urine Bacteria RARE None Seen /HPF Urine Opiates Screen NEGATIVE NEGATIVE Urine Barbiturates Screen NEGATIVE NEGATIVE Urine Phencyclidine Screen NEGATIVE NEGATIVE Urine Amphetamines Screen NEGATIVE NEGATIVE Urine Benzodiazepines Screen NEGATIVE NEGATIVE Urine Cocaine Screen NEGATIVE NEGATIVE Urine Marijuana (THC) Screen NEGATIVE NEGATIVE Influenza Type A Antigen Negative For Type A NEGATIVE Influenza Type B Antigen Negative For Type B NEGATIVE SARS-CoV-2, RNA, NAAT POSITIVE SARS CoV-2 *A NEGATIVE Group A Streptococcus Rapid negative NEGATIVE Test 03/02/25 00:32 03/01/25 22:19 Range/Units Blood Gas Specimen Type Arterial Arterial Blood pH 7.424 7.350-7.450 Arterial Blood Partial Pressure CO2 34 32-45 mmHg Arterial Blood Partial Pressure O2 71.9 L 83.0-108.0 mmHg Arterial Blood HCO3 21.6 21.0-28.0 mmol/L Arterial Blood Oxygen Saturation 94.3 94.0-98.0 % Arterial Blood Base Excess -2.1 L -2.0-3.0 mmol/L Hemoglobin (Blood Gas) 12.9 12.0-16.0 g/dL Sodium (Blood Gas) 138 136-145 MMOL/L Bedside Potassium (Blood Gas) 3.5 3.4-4.5 MMOL/L Bedside Chloride (Blood Gas) 102 98-107 MMOL/L Bedside Glucose (Blood Gas) 261 H 65-95 MG/DL Bedside Ionized Calcium (Blood Gas) 1.16 1.15-1.33 MMOL/L Bedside Lactic Acid (Blood Gas) 1.17 H 0.36-0.75 MMOL/L Blood Gas Temperature 37.0 35.5-37.0 CELSIUS Blood Gas Vent Mode ROOMAIR ROOM AIR FiO2 21.0 % Blood Gas Specimen Comment RB NURSE SHASHANK Immature Granulocyte % (Auto) 0.3 0-1 % Neutrophils (%) (Auto) 63.8 40.0-77.0 % Lymphocytes (%) (Auto) 30.2 21.0-51.0 % Monocytes (%) (Auto) 5.6 3.0-13.0 % Eosinophils (%) (Auto) 0.0 0.0-8.0 % Basophils (%) (Auto) 0.1 0.0-5.0 % Neutrophils # (Auto) 4.4 1.8-7.7 K/uL Lymphocytes # (Auto) 2.1 1.0-4.8 K/uL Monocytes # (Auto) 0.4 0.1-1.0 K/uL Eosinophils # (Auto) 0.00 0.00-0.70 K/uL Basophils # (Auto) 0.01 0.00-0.20 K/uL Absolute Immature Granulocyte (auto 0.02 0-1 K/uL Lipase 32 16-77 U/L Serum Test, Qualitative NEGATIVE NEGATIVE Current Medications Medications (Trade) Dose Ordered Sig/Neva Route PRN Reason Start Time Stop Time Status Last Admin Dose Admin Acetaminophen (TYLenol 325MG TAB) 650 mg Q6H PRN PO FEVER/MILD PAIN LEVEL 1-3 03/02/25 02:30 04/01/25 02:29 Acetaminophen (TYLenol 650MG SUPPOSITORY) 650 mg Q6H PRN RC FEVER / MILD PAIN 1-3 IF NPO 03/02/25 02:30 04/01/25 02:29 Albuterol Sulfate (Proventil 0.083% 2.5mg/3ml) 2.5MG Q6H PRN IH SHORTNESS OF BREATH 03/02/25 07:00 04/01/25 06:59 Ceftriaxone Sodium (Rocephin 2gm Inj) 2 gm Q24H IVPB 03/02/25 06:30 03/12/25 06:29 03/02/25 06:58 2 GM Dextrose (D50w) 50 ml AD PRN IV HYPOGLYCEMIA PROTOCOL 03/02/25 07:00 04/01/25 06:59 Dextrose/Sodium Chloride 1,000 ml @ 0 mls/hr AD IV 03/01/25 23:30 03/02/25 02:00 DC Docusate Sodium (COLace 100MG CAP) 100 mg BID PRN PO c 03/02/25 02:30 04/01/25 02:29 Famotidine (Pepcid 20mg Tab) 20 mg BID PO 03/02/25 09:00 04/01/25 08:59 03/02/25 09:29 20 MG Glucagon (Glucagon 1mg Kit) 1 mg AD PRN IM HYPOGLYCEMIA PROTOCOL 03/02/25 07:00 04/01/25 06:59 Insulin Human Regular (humuLIN R 100 UNIT/ML 3ML) INSULIN SLIDING SCAL... Q4H SQ 03/02/25 02:30 04/01/25 02:29 03/02/25 06:57 4 UNIT Insulin Human Regular 100 unit/ Sodium Chloride 101 ml @ 0 mls/hr PROTOCOL IV 03/01/25 23:30 03/02/25 02:00 DC Ipratropium [place] (AtrovENT UD) 0.5 mg Q6H PRN IH SHORTNESS OF BREATH 03/02/25 07:00 04/01/25 06:59 Labetalol HCl (TRANdate 20MG SYG) 10 mg Q2H PRN IV SBP GREATER THAN 160 03/02/25 02:30 04/01/25 02:29 Lactulose (Constulose 20gm/ 30ml Udcup) 20 gm Q6H PRN PO CONSTIPATION 03/02/25 02:30 04/01/25 02:29 Magnesium Sulfate 50 ml @ 0 mls/hr PROTOCOL IV 03/01/25 23:30 03/02/25 02:00 DC Magnesium Sulfate 50 ml @ 0 mls/hr PROTOCOL PRN IV MAGNESIUM PROTOCOL 03/02/25 07:00 04/01/25 06:59 Mannitol (Osmitrol 20% 250ml Bag) 34 gm AD IV 03/01/25 23:30 03/01/25 23:30 DC Morphine Sulfate (morPHINE 2MG SYG) 2 mg Q4H PRN IVP MODERATE PAIN (4-6) 03/02/25 02:30 03/09/25 02:29 Ondansetron HCl (zoFRAN 4MG INJ) 4 mg Q6H PRN IVP NAUSEA/VOMITING 03/02/25 02:30 04/01/25 02:29 Potassium Chloride/Dextrose/ Sod Cl 1,000 ml @ 0 mls/hr AD IV 03/01/25 23:30 03/02/25 02:00 DC Potassium Chloride/Sodium Chloride 1,000 ml @ 0 mls/hr PROTOCOL IV 03/01/25 23:45 03/02/25 02:00 DC Potassium Chloride 100 ml @ 50 mls/hr AD PRN IV POTASSIUM PROTOCOL 03/02/25 07:00 04/01/25 06:59 Potassium Chloride (K-Dur/Klor-Con 20meq) 20 meq AD PRN PO POTASSIUM PROTOCOL 03/02/25 07:00 04/01/25 06:59 Potassium Chloride (KCl 10% Elixir 20meq/15ml) 20 meq AD PRN PO POTASSIUM PROTOCOL 03/02/25 07:00 04/01/25 06:59 Sodium Chloride 1,000 ml @ 150 mls/hr Q6H40M IV 03/02/25 02:10 04/01/25 02:09 03/02/25 08:50 150 MLS/HR Sodium Chloride 1,000 ml @ 200 mls/hr PROTOCOL IV 03/01/25 23:30 03/02/25 02:00 DC Temazepam (restORIL 15 MG CAP) 15 mg HS PRN PO INSOMNIA/SLEEP 03/02/25 02:30 04/01/25 02:29 DIAGNOSTICS / RADIOLOGY: [ ] ASSESSMENT: Acute dehydration, POA, s/p nausea and vomiting Dilated CBD, mild, per CT on 03/02/2025 Acute hypoxemia, POA Coronavirus infection, POA Acute complicated cystitis, POA UTI on 02/28/2025 with positive urine culture for Gram-negative rods Diabetes mellitus with hyperglycemia, POA Ketonuria and ketonemia, POA Acute on chronic abdominal pain, POA, with frequent ED visits for abdominal pain & n/v Simple renal cortical cyst on left side, per CT on 03/02/2025 Thrombocytosis, POA Electrolyte derangement (hyponatremia, hypochloremia), POA History of DKA PLAN: Admit to PCCU with telemetry monitoring. Consult GI for recurrent abdominal pain and recurrent N/V and dilated CBD. P.r.n. medications for: Pain management, fever, nausea, vomiting, hypertension, constipation. NS L bolus now, then NS at 150 mL an hour. Keep NPO for now due to intractable nausea vomiting and abdominal pain. Consider advancing to clear diet once patient is no longer nauseated or vomiting. Glucometer checks q.4 hours a.c. and HS with insulin regular sliding scale per protocol. Start Rocephin 2 g IV daily. Pending culture sensitivity for UA collected on 02/28/2025 Monitor respirations status. O2 as needed to keep SpO2 equal greater than 92%. RT to provide IS and education on use. Albuterol and Atrovent as needed for shortness of breath. Avoid steroids to avoid DKA and due to patient's breathing is even and unlabored on room air. Blood pressure checks every 4 hours and as needed. Reconcile home medications once available. Monitor renal and liver function. Monitor electrolytes and treat accordingly. A.m. labs. GI and DVT prophylaxis. Further plan/orders per hospitalization course. JD JOSUE MD Mar 02, 2025 13:37
--- NOTE | 2025-03-02 16:07 | NUR ---
DCP Home Pt awake, alert, oriented x3 spouse Stas Sandy([phone]) at bedside. Pt does not have PCP, community resource packet provided. Pt is independent, anticipates discharge is for home with spouse. Addendum: 03/02/25 at 1612 by MP THOMAS RN CM Amended: Links added.
--- NOTE | 2025-03-02 19:54 | HMCIMG ---
EXAM: CR Chest, 1 View. CLINICAL HISTORY: hypoxemia COMPARISON: None provided. FINDINGS: LUNGS: There is no mass, infiltrate, or acute pulmonary abnormality. PLEURAL SPACES: No evidence of pleural effusion or pneumothorax. MEDIASTINUM: Cardiac size and mediastinal contours within normal limits. BONES: No acute osseous abnormality. IMPRESSION: No acute cardiopulmonary pathology is evident. /[place]
[2025-03-03] VITALS (9 sets, daily range): BP systolic 104–147; BP diastolic 43–90; PULSE 69–89; RESP 16–20; TEMP 97.7–99; O2SAT 95–97
[2025-03-03 04:04] LABS: NUCLEATED RED BLOOD CELLS 0.0 % (0.0-0.19); PLATELET COUNT (AUTO) 464.0 K/uL (130-400); RED BLOOD CELL COUNT(AUTO) 4.39 MIL/uL (4.00-5.50); RED CELL DISTRIBUTION WIDTH 12.4 % (11.0-15.5); WHITE BLOOD COUNT (AUTO) 10.7 K/uL (4.8-10.8)
[2025-03-03 04:16] LABS: CREATININE 0.3 mg/dL (0.5-1.0); GLOMERULAR FILTR. RATE CALC 140.0 mL/min (>90); GLUCOSE,RANDOM 160.0 mg/dL (70-105); PHOSPHORUS 2.9 mg/dL (2.5-4.9); SODIUM SERUM 133.0 mmol/L (136-145); UREA NITROGEN, BLOOD 5.0 mg/dL (7-18)
[2025-03-03] MEDS: PoTASSium chloRIDE 20MEQ ER 20 MEQ ERTAB PO PRN (04:35)
[2025-03-03] MEDS: MAGNESIUM 2GM PREMIX 50ML 50 ML IV PRN (04:36)
--- NOTE | 2025-03-03 16:26 | NUR ---
Nutrition consult per T2DM Reviewed labs, notes, and medications. Pt's last admin January, s/p cholecystectomy, COVID +, w/ nausea, on CLD, insulin, sedated, Na 133(L), K 3.4(L), BG 169(H), A1C 10.4, Mg 1.60(L), no lipid panel and vit. D per chart review. Wt via standing scale, last BM 03/01/25, no edema, well nourished, no wounds, 400 ml balance 03/02/25 per chart review. Per research low vitamin D may contribute to insulin resistance . Recommendations: -Provide CLD+ NCS+prostat jello tid (to aid in wound healing) -Monitor PO intake -Encourage PO intake as able -Advance diet when medically feasible to 60 gm cho +low fat diet + prostat jello tid (to aid in wound healing) -Monitor BM -If no BM >3 days consider stool softener -Monitor electrolytes -Replenish electrolytes per protocol -Monitor wts -Reweigh as able -Order Vit D, vit b-12 labs to rule out deficiencies -Order lipid panel -Provide b-complex QD -Recommend Pt to follow up with PCP -Monitor goals of care RD to follow + available for consult per protocol Addendum: 03/03/25 at [address] Amended: Links added.
--- NOTE | 2025-03-03 16:56 | PN ---
[facility] PROGRESS NOTE Date of Service: Mar 03, 2025 Time of Service: 16:41 SUBJECTIVE: Ms. Pitt is a 39-year-old female with a history of DM and surgical history of cholecystectomy who presented to [facility] for evaluatoin of ongoing epigastric pain, nausea, and vomiting. She was just seen yesterday and was diagnosed with mild dehydration and she was given prescriptions. However patient stated that her symptoms are persistent and hence she came in for evaluation she has a extensive history of ER visits as well as admissions. The patient denied any fever, chills, rigors, hematemesis or melena VS on arrival: Temperature 98.7, pulse 94, respirations 20, blood pressure 142/87, 97% on room air. ABGs: PH 7.424, pCO2 34, PO2 71.9, bicarbonate 21.6, O2 sats 94.3, base excess -2.1, Labs: Ketones 2.7, WBCs WNL. Platelets 548, MPV 10.9, Na 135, chloride 98, BUN 22, GFR 118, glucose 302. COVID positive. UA: + leuk EST (positive Gram-negative rods on 02/28/2025). CT abdomen and p benoit with contrast: No acute process in the abdomen or pelvis. Status post cholecystectomy. Mildly dilated CBD, which could be secondary to postcholecystectomy physiological changes. Further evaluation with MRCP may be done if there is a clinical suspicion of biliary obstruction. Simple renal cortical cyst on the left side. Compared to the prior study, there is no sig nificant interval change. Per chart review: The patient was here for nausea and vomiting on 01/25/2025, serum ketones were 0.5, was discharged with diagnosis of mild dehydration, hyperglycemia, UTI, viral gastroenteritis. She also presented to [facility] on 01/25/2025 for abdominal pain and was discharged from ED. On 01/26/2025 she was admitted for DKA, then returned on 01/30/2025 for intractable nausea and vomiting and was admitted and was discharged home on 02/01/25. ED provider requested patient be admitted to the hospital with the diagnosis of DKA, volume depletion, UTI, intractable nausea and vomiting, elevated ketones body level. 03/03/2025: Patient was seen at the bedside 201. Her vitals are normal given pulse oximetry is 96. Labs revealed WBC 10.7 Hemoglobin 10.4 hematocrit 32.1 BUN 5 creatinine 0.3, HB A1c 10.4, average glucose 252, total calcium 7.8, phosphorus 1.60. Urinalysis revealed specific gravity 1.032, glucose 1000, ketones 150, occult blood small, leukocyte esterase 75. The patient attempted to take famotidine, but it resulted in vomiting. Currently the patient is on clear liquid diet. Pending gastroenterology consultation. REVIEW OF SYSTEMS 12-point ROS reviewed with the patient. All pertinent positives mentioned above. Otherwise negative, noncontributory, nonpertinent. PHYSICAL EXAM GENERAL APPEARANCE: The patient is awake, alert, and oriented, in no acute cardiopulmonary distress. NEUROLOGICAL: Cranial nerves II-XII grossly intact. Motor is 5/5 in bilateral upper and lower extremities proximal to distal. No sensory deficits. HEENT: Face is symmetric. Pupils are equal and reactive. Extraocular movements are intact. NECK: Supple. No JVD. No thyromegaly. No submental, submandibular, pre- /postauricular, occipital or supraclavicular lymphadenopathy. CHEST: Normal chest expansion. No Telemetry. LUNGS: Absence of any rales, rhonchi or any wheezing. CARDIOVASCULAR: Regular. S1 and S2 normal. No appreciable rubs, murmurs or gallops. ABDOMEN: Soft, nontender, and nondistended. There is no rebound, voluntary guarding, or rigidity. : Deferred. No Nuñez. EXTREMITIES: Non-edematous and not cyanotic. No clubbing. Good capillary refill. SKIN: No skin breakdown. Vital Signs (last 8hr) Date Time Temp Pulse Resp B/P (MAP) Pulse Ox O2 Delivery O2 Flow Rate FiO2 03/03/25 16:20 97.9 81 16 129/71 96 Room Air 03/03/25 12:15 97.9 74 16 107/65 94 Room Air LABS: Laboratory: Test 03/03/25 16:19 03/03/25 03:49 03/02/25 06:15 03/02/25 03:41 Range/Units Whole Blood Glucose 230 H 70-110 MG/DL White Blood Count 10.7 4.8-10.8 K/uL Red Blood Count 4.39 4.00-5.50 MIL/uL Hemoglobin 12.2 12.0-16.0 g/dL Hematocrit 36.5 36-48 % Mean Corpuscular Volume 83.1 79-99 fL Mean Corpuscular Hemoglobin 27.8 27.0-33.0 pg Mean Corpuscular Hemoglobin Concent 33.4 32.0-36.0 g/dL Red Cell Distribution Width 12.4 11.0-15.5 % Platelet Count 464 H 130-400 K/uL Mean Platelet Volume 10.5 7.5-10.5 fL Nucleated Red Blood Cells 0.0 0.0-0.19 % Sodium Level 133 L 136-145 mmol/L Potassium Level 3.4 L 3.5-5.1 mmol/L Chloride Level 100 L 101-111 mmol/L Carbon Dioxide Level 25 21-32 mmol/L Blood Urea Nitrogen 5 L 7-18 mg/dL Creatinine 0.3 L 0.5-1.0 mg/dL Glomerular Filtration Rate Calc 140 >90 mL/min Random Glucose 160 H 70-105 mg/dL Total Calcium 7.8 L 8.5-10.1 mg/dL Phosphorus Level 2.9 2.5-4.9 mg/dL Magnesium Level 1.60 L 1.80-2.40 mg/dL Hemoglobin A1c 10.4 H 4.0-6.0 % Estimated Average Glucose (eAG) 252 H 70-126 mg/dL Whole Blood Ketones Quantitative 0.8 H 0.0-0.6 mmol/L Total Bilirubin 0.3 0.2-1.0 mg/dL Aspartate Amino Transf (AST/SGOT) 10 10-37 U/L Alanine Aminotransferase (ALT/SGPT) 14 12-78 U/L Alkaline Phosphatase 45 L 50-136 U/L Total Protein 6.0 6.0-8.3 g/dL Albumin 2.7 L 3.5-5.0 g/dL Thyroid Stimulating Hormone (TSH) 1.29 # 0.36-3.74 uIU/mL Urine Color LIGHT-YELLOW YELLOW Urine Appearance CLEAR CLEAR Urine pH 6.0 5.0-8.0 Urine Specific Rarden 1.032 H 1.001-1.031 Urine Protein 10 H NEGATIVE mg/dL Urine Glucose (UA) >=1000 H NEGATIVE mg/dL Urine Ketones 150 H NEGATIVE mg/dL Urine Occult Blood SMALL H NEGATIVE Urine Nitrate NEGATIVE NEGATIVE Urine Bilirubin NEGATIVE NEGATIVE mg/dL Urine Urobilinogen 0.2 0.2-1.0 mg/dL Urine Leukocyte Esterase 75 H NEGATIVE Claudette/uL Urine RBC 2-5 H 0-1 /HPF Urine WBC 26-50 H 0-1 /HPF Urine Squamous Epithelial Cells RARE 0-2 /HPF Urine Bacteria RARE None Seen /HPF Urine Opiates Screen NEGATIVE NEGATIVE Urine Barbiturates Screen NEGATIVE NEGATIVE Urine Phencyclidine Screen NEGATIVE NEGATIVE Urine Amphetamines Screen NEGATIVE NEGATIVE Urine Benzodiazepines Screen NEGATIVE NEGATIVE Urine Cocaine Screen NEGATIVE NEGATIVE Urine Marijuana (THC) Screen NEGATIVE NEGATIVE Test 03/02/25 02:56 03/02/25 00:32 03/01/25 22:19 Range/Units Influenza Type A Antigen Negative For Type A NEGATIVE Influenza Type B Antigen Negative For Type B NEGATIVE SARS-CoV-2, RNA, NAAT POSITIVE SARS CoV-2 *A NEGATIVE Group A Streptococcus Rapid negative NEGATIVE Blood Gas Specimen Type Arterial Arterial Blood pH 7.424 7.350-7.450 Arterial Blood Partial Pressure CO2 34 32-45 mmHg Arterial Blood Partial Pressure O2 71.9 L 83.0-108.0 mmHg Arterial Blood HCO3 21.6 21.0-28.0 mmol/L Arterial Blood Oxygen Saturation 94.3 94.0-98.0 % Arterial Blood Base Excess -2.1 L -2.0-3.0 mmol/L Hemoglobin (Blood Gas) 12.9 12.0-16.0 g/dL Sodium (Blood Gas) 138 136-145 MMOL/L Bedside Potassium (Blood Gas) 3.5 3.4-4.5 MMOL/L Bedside Chloride (Blood Gas) 102 98-107 MMOL/L Bedside Glucose (Blood Gas) 261 H 65-95 MG/DL Bedside Ionized Calcium (Blood Gas) 1.16 1.15-1.33 MMOL/L Bedside Lactic Acid (Blood Gas) 1.17 H 0.36-0.75 MMOL/L Blood Gas Temperature 37.0 35.5-37.0 CELSIUS Blood Gas Vent Mode ROOMAIR ROOM AIR FiO2 21.0 % Blood Gas Specimen Comment RB NURSE SHASHANK Immature Granulocyte % (Auto) 0.3 0-1 % Neutrophils (%) (Auto) 63.8 40.0-77.0 % Lymphocytes (%) (Auto) 30.2 21.0-51.0 % Monocytes (%) (Auto) 5.6 3.0-13.0 % Eosinophils (%) (Auto) 0.0 0.0-8.0 % Basophils (%) (Auto) 0.1 0.0-5.0 % Neutrophils # (Auto) 4.4 1.8-7.7 K/uL Lymphocytes # (Auto) 2.1 1.0-4.8 K/uL Monocytes # (Auto) 0.4 0.1-1.0 K/uL Eosinophils # (Auto) 0.00 0.00-0.70 K/uL Basophils # (Auto) 0.01 0.00-0.20 K/uL Absolute Immature Granulocyte (auto 0.02 0-1 K/uL Lipase 32 16-77 U/L Serum Test, Qualitative NEGATIVE NEGATIVE Current Medications Medications (Trade) Dose Ordered Sig/Neva Route PRN Reason Start Time Stop Time Status Last Admin Dose Admin Acetaminophen (TYLenol 325MG TAB) 650 mg Q6H PRN PO FEVER/MILD PAIN LEVEL 1-3 03/02/25 02:30 04/01/25 02:29 Acetaminophen (TYLenol 650MG SUPPOSITORY) 650 mg Q6H PRN RC FEVER / MILD PAIN 1-3 IF NPO 03/02/25 02:30 04/01/25 02:29 Albuterol Sulfate (Proventil 0.083% 2.5mg/3ml) 2.5MG Q6H PRN IH SHORTNESS OF BREATH 03/02/25 07:00 04/01/25 06:59 Ceftriaxone Sodium (Rocephin 2gm Inj) 2 gm Q24H IVPB 03/02/25 06:30 03/12/25 06:29 03/03/25 06:31 2 GM Dextrose (D50w) 50 ml AD PRN IV HYPOGLYCEMIA PROTOCOL 03/02/25 07:00 04/01/25 06:59 Dextrose/Sodium Chloride 1,000 ml @ 0 mls/hr AD IV 03/01/25 23:30 03/02/25 02:00 DC Docusate Sodium (COLace 100MG CAP) 100 mg BID PRN PO c 03/02/25 02:30 04/01/25 02:29 Famotidine (Pepcid 20mg Tab) 20 mg BID PO 03/02/25 09:00 04/01/25 08:59 03/02/25 19:50 20 MG Glucagon (Glucagon 1mg Kit) 1 mg AD PRN IM HYPOGLYCEMIA PROTOCOL 03/02/25 07:00 04/01/25 06:59 Insulin Human Regular (humuLIN R 100 UNIT/ML 3ML) INSULIN SLIDING SCAL... Q4H SQ 03/02/25 02:30 03/02/25 15:21 DC 03/02/25 06:57 4 UNIT Insulin Human Regular (humuLIN R 100 UNIT/ML 3ML) INSULIN SLIDING SCAL... Q4H SQ 03/02/25 18:00 04/01/25 17:59 03/03/25 06:36 4 UNIT Insulin Human Regular 100 unit/ Sodium Chloride 101 ml @ 0 mls/hr PROTOCOL IV 03/01/25 23:30 03/02/25 02:00 DC Ipratropium Bryan (AtrovENT UD) 0.5 mg Q6H PRN IH SHORTNESS OF BREATH 03/02/25 07:00 04/01/25 06:59 Labetalol HCl (TRANdate 20MG SYG) 10 mg Q2H PRN IV SBP GREATER THAN 160 03/02/25 02:30 04/01/25 02:29 Lactulose (Constulose 20gm/ 30ml Udcup) 20 gm Q6H PRN PO CONSTIPATION 03/02/25 02:30 04/01/25 02:29 Magnesium Sulfate 50 ml @ 0 mls/hr PROTOCOL IV 03/01/25 23:30 03/02/25 02:00 DC Magnesium Sulfate 50 ml @ 0 mls/hr PROTOCOL PRN IV MAGNESIUM PROTOCOL 03/02/25 07:00 04/01/25 06:59 03/03/25 04:36 25 MLS/HR Mannitol (Osmitrol 20% 250ml Bag) 34 gm AD IV 03/01/25 23:30 03/01/25 23:30 DC Morphine Sulfate (morPHINE 2MG SYG) 2 mg Q4H PRN IVP MODERATE PAIN (4-6) 03/02/25 02:30 03/09/25 02:29 03/03/25 13:16 2 MG Ondansetron HCl (zoFRAN 4MG INJ) 4 mg Q6H PRN IVP NAUSEA/VOMITING 03/02/25 02:30 04/01/25 02:29 03/03/25 13:15 4 MG Potassium Chloride/Dextrose/ Sod Cl 1,000 ml @ 0 mls/hr AD IV 03/01/25 23:30 03/02/25 02:00 DC Potassium Chloride/Sodium Chloride 1,000 ml @ 0 mls/hr PROTOCOL IV 03/01/25 23:45 03/02/25 02:00 DC Potassium Chloride 100 ml @ 50 mls/hr AD PRN IV POTASSIUM PROTOCOL 03/02/25 07:00 04/01/25 06:59 Potassium Chloride (K-Dur/Klor-Con 20meq) 20 meq AD PRN PO POTASSIUM PROTOCOL 03/02/25 07:00 04/01/25 06:59 03/03/25 04:35 20 MEQ Potassium Chloride (KCl 10% Elixir 20meq/15ml) 20 meq AD PRN PO POTASSIUM PROTOCOL 03/02/25 07:00 04/01/25 06:59 Sodium Chloride 1,000 ml @ 150 mls/hr Q6H40M IV 03/02/25 02:10 04/01/25 02:09 03/03/25 16:35 150 MLS/HR Sodium Chloride 1,000 ml @ 200 mls/hr PROTOCOL IV 03/01/25 23:30 03/02/25 02:00 DC Temazepam (restORIL 15 MG CAP) 15 mg HS PRN PO INSOMNIA/SLEEP 03/02/25 02:30 04/01/25 02:29 DIAGNOSTICS / RADIOLOGY: [place] [address] IMAGING REPORT Signed PATIENT: RAEANN PITT MR#: [id number] : 1985 SEX: F AGE: 39 LOCATION: 2AH ORDER 4 STATUS: ADM IN REPORT#: [id number] SERVICE 5 REASON: worsening abd pain ORDERING PHYSICIAN: MATILDA AMEZQUITA PROCEDURE: ABD PEL W - CT ABDOMEN/PELVIS W/CONTRAST EXAM: CT Abdomen and Pelvis with IV contrast CLINICAL HISTORY: Worsening abdominal pain. TECHNIQUE: Postcontrast thin collimated axial CT images of the abdomen and pelvis were obtained with sagittal and coronal reformatted images also submitted. CT scan is done according to ALARA (As Low As Reasonably Achievable). COMPARISON: CT abdomen and pelvis dated 01/26/2025. FINDINGS: The included lungs are clear. Mild fatty liver. Status post cholecystectomy. Mildly dilated CBD measures up to 1 cm in diameter. No focal abnormality within the pancreas, spleen, or adrenals. 0.8 cm nonenhancing Bosniak class I cyst at the left renal lower pole. Grossly unremarkable urinary bladder. The uterus and ovaries are within normal limits. No obvious bowel wall thickening, dilatation, or obstruction. Unremarkable appendix. Grossly unremarkable abdominal vessels. No pathological lymphadenopathy in the abdomen or pelvis. No ascites or pneumoperitoneum. No acute bony abnormality. Degenerative osseous changes. 0.7 cm sclerotic focus in the left proximal femur, likely bony island. IMPRESSIONS: No acute process in the abdomen or pelvis. Status post cholecystectomy. Mildly dilated CBD, which could be secondary to postcholecystectomy physiological changes. Further evaluation with MRCP may be done if there is a clinical suspicion of biliary obstruction. Simple renal cortical cyst on the left side. Compared to the prior study, there is no significant interval change. /[facility] DICTATED BY: LICHA RUDOLPH Jr., MD DATE: 03/02/25512 ELECTRONICALLY SIGNED BY: LICHA RUDOLPH Jr., MD DATE: 03/02/[address] . [place] [address] IMAGING REPORT Signed PATIENT: RAEANN PITT MR#: [id number] : 1985 SEX: F AGE: 39 LOCATION: 2AH ORDER 26 STATUS: ADM IN REPORT#: [id number] SERVICE 24 REASON: hypoxemia ORDERING PHYSICIAN: MATILDA AMEZQUITA PROCEDURE: CXR1VW - CHEST 1VW EXAM: CR Chest, 1 View. CLINICAL HISTORY: hypoxemia COMPARISON: None provided. FINDINGS: LUNGS: There is no mass, infiltrate, or acute pulmonary abnormality. PLEURAL SPACES: No evidence of pleural effusion or pneumothorax. MEDIASTINUM: Cardiac size and mediastinal contours within normal limits. BONES: No acute osseous abnormality. IMPRESSION: No acute cardiopulmonary pathology is evident. /[facility] DICTATED BY: KARINA LEE MD DATE: 03/02/252052 ELECTRONICALLY SIGNED BY: KARINA LEE MD DATE: 03/02/252052 ASSESSMENT: Acute dehydration, POA, s/p nausea and vomiting Dilated CBD, mild, per CT on 03/02/2025 Acute hypoxemia, POA Coronavirus infection, POA Acute complicated cystitis, POA UTI on 02/28/2025 with positive urine culture for Gram-negative rods Diabetes mellitus with hyperglycemia, POA Ketonuria and ketonemia, POA Acute on chronic abdominal pain, POA, with frequent ED visits for abdominal pain & n/v Simple renal cortical cyst on left side, per CT on 03/02/2025 Thrombocytosis, POA Electrolyte derangement (hyponatremia, hypochloremia), POA History of DKA PLAN: Acute on chronic abdominal pain, POA Pending Consult GI for recurrent abdominal pain and recurrent N/V and dilated CBD. P.r.n. medications for: Pain management, fever, nausea, vomiting, hypertension, constipation. NS L bolus now, then NS at 150 mL an hour. Keep NPO for now due to intractable nausea vomiting and abdominal pain. Consider advancing to clear diet once patient is no longer nauseated or vomiting. Diabetes mellitus with hyperglycemia, POA Glucometer checks q.4 hours a.c. and HS with insulin regular sliding scale per protocol. Acute complicated cystitis, POA on Rocephin 2 g IV daily. Pending culture sensitivity for UA collected on 02/28/2025 Acute hypoxemia, POA Monitor respirations status. O2 as needed to keep SpO2 equal greater than 92%. RT to provide IS and education on use. Albuterol and Atrovent as needed for shortness of breath. Avoid steroids to avoid DKA and due to patient's breathing is even and unlabored on room air. Blood pressure checks every 4 hours and as needed. Reconcile home medications once available. Monitor renal and liver function. Monitor electrolytes and treat accordingly. A.m. labs. P.r.n. medications for: Pain management, fever, nausea, vomiting, hypertension, constipation. GI and DVT prophylaxis. Further plan/orders per hospitalization course. ATTESTATION BY PHYSICIAN I have seen and examined the patient. I reviewed the documentation, medical decision making, and treatment plan as noted by the mid-level provider above. I agree with the findings and plan of care. Sukhi Guillaume MD, HARSHA MD Mar 03, 2025 16:56
[2025-03-03 17:31] LABS: LDL DIRECT 141 mg/dL (0-99)
[2025-03-03] MEDS: PROMETHAZINE HCL 25 MG/ML 1ML AMPULE IM PRN (22:04)
[2025-03-04] VITALS (9 sets, daily range): BP systolic 121–149; BP diastolic 66–95; PULSE 65–108; RESP 18–20; TEMP 98.6–100.2; O2SAT 98
[2025-03-04 04:35] LABS: IMMATURE GRANULOCYTE ABSOLUTE 0.02 K/uL (0-1); NUCLEATED RED BLOOD CELLS 0.0 % (0.0-0.19); PLATELET COUNT (AUTO) 339 K/uL (130-400); RED BLOOD CELL COUNT(AUTO) 4.41 MIL/uL (4.00-5.50); RED CELL DISTRIBUTION WIDTH 12.5 % (11.0-15.5); WHITE BLOOD COUNT (AUTO) 7.0 K/uL (4.8-10.8)
[2025-03-04 04:52] LABS: CREATININE 0.3 mg/dL (0.5-1.0); GLOMERULAR FILTR. RATE CALC 140.0 mL/min (>90); GLUCOSE,RANDOM 160.0 mg/dL (70-105); PHOSPHORUS 2.3 mg/dL (2.5-4.9); SODIUM SERUM 133.0 mmol/L (136-145); UREA NITROGEN, BLOOD 5.0 mg/dL (7-18)
--- NOTE | 2025-03-04 11:59 | CONS ---
CONSULT NOTE: Endocrinology Consult Chief complaint:abdominal pain, nausea Reason for consult:uncontrolled dm-2 DOS: 03/04/25 HISTORY OF PRESENT ILLNESS: Ms. Flores is a 39-year-old female with a history of DM and surgical history of cholecystectomy who presented to [facility] for evaluatoin of ongoing epigastric pain, nausea, and vomiting. She was just seen recently and was diagnosed with mild dehydration and she was given prescriptions. However patient stated that her symptoms are persistent and hence she came in for evaluation she has a extensive history of ER visits as well as admissions. The patient denied any fever, chills, rigors, hematemesis or melena VS on arrival: Temperature 98.7, pulse 94, respirations 20, blood pressure 142/87, 97% on room air. ABGs: PH 7.424, pCO2 34, PO2 71.9, bicarbonate 21.6, O2 sats 94.3, base excess -2.1, Labs: Ketones 2.7, WBCs WNL. Platelets 548, MPV 10.9, Na 135, chloride 98, BUN 22, GFR 118, glucose 302. COVID positive. UA: + leuk EST (positive Gram-negative rods on 02/28/2025). CT abdomen and pelvis with contrast: No acute process in the abdomen or pelvis. Status post cholecystectomy. Mildly dilated CBD, which could be secondary to postcholecystectomy physiological changes. Further evaluation with MRCP may be done if there is a clinical suspicion of biliary obstruction. Simple renal cortical cyst on the left side. Compared to the prior study, there is no significant interval change. Per chart review: The patient was here for nausea and vomiting on 01/25/2025, serum ketones were 0.5, was discharged with diagnosis of mild dehydration, hyperglycemia, UTI, viral gastroenteritis. She also presented to [facility] on 01/25/2025 for abdominal pain and was discharged from ED. On 01/26/2025 she was admitted for DKA, then returned on 01/30/2025 for intractable nausea and vomiting and was admitted and was discharged home on 02/01/25. Home diabetic regimen: novolin 70/30 insulin 20 units am and 10 units pm Hba1c 10.4% REVIEW OF SYSTEMS 12-point ROS reviewed with the patient. All pertinent positives mentioned above. Otherwise negative, noncontributory, nonpertinent. PAST MEDICAL HISTORY: As mentioned above PAST SURGICAL HISTORY: Cholecystectomy, , tubal ligation PAST SOCIAL HISTORY: Denied alcohol, tobacco, illicit drug use FAMILY HISTORY: Noncontributory Coded Allergies: No Known Drug Allergies (Unverified Allergy, Unknown, 10/02/15) PHYSICAL EXAM GENERAL APPEARANCE: The patient is awake, alert, and oriented, in no acute cardiopulmonary distress. NEUROLOGICAL: Cranial nerves II-XII grossly intact. Motor is 5/5 in bilateral upper and lower extremities proximal to distal. No sensory deficits. HEENT: Face is symmetric. Pupils are equal and reactive. Extraocular movements are intact. NECK: Supple. No JVD. No thyromegaly. No submental, submandibular, pre- /postauricular, occipital or supraclavicular lymphadenopathy. CHEST: Normal chest expansion. No Telemetry. LUNGS: Absence of any rales, rhonchi or any wheezing. CARDIOVASCULAR: Regular. S1 and S2 normal. No appreciable rubs, murmurs or gallops. ABDOMEN: Soft, nontender, and nondistended. There is no rebound, voluntary guarding, or rigidity. : Deferred. No Nuñez. EXTREMITIES: Non-edematous and not cyanotic. No clubbing. Good capillary refill. SKIN: No skin breakdown. ASSESSMENT: uncontrolled dm-2,POA glucose are high, so insulin adjusted. Home diabetic regimen: novolin 70/30 insulin 20 units am and 10 units pm Hba1c 10.4% Acute dehydration, POA, s/p nausea and vomiting Dilated CBD, mild, per CT on 03/02/2025, further imaging pending. Acute hypoxemia, POA Coronavirus infection, POA Acute complicated cystitis, POA UTI on 02/28/2025 with positive urine culture for Gram-negative rods Diabetes mellitus with hyperglycemia, POA Ketonuria and ketonemia, POA Acute on chronic abdominal pain, POA, with frequent ED visits for abdominal pain & n/v Simple renal cortical cyst on left side, per CT on 03/02/2025 Thrombocytosis, POA Electrolyte derangement (hyponatremia, hypochloremia), POA History of DKA PLAN: increase lantus to 15 units daily and adjust for fasting glucose. start regular insulin 5 units tid before meals and adjust for post-prandial glucose. decerase high dose ssi to medium dose sliding scale insulin. Monitor glucose q x 6 hourly. Continue carb consistent diet. Keep glucose less than 180 mg/dl. check NEISHA-65 abs to rule out type 1 dm. recommend to increase home insulin by 5 units 35 units AM and 15 units PM due to high glucose. Thanks for allowing me to participate in patient care and will continue to follow up. Vital Signs 03/03/25 03/04/25 03/04/25 20:00 08:00 08:09 Temp 98.6 Pulse 83 Resp 18 B/P (MAP) 125/75 Pulse Ox 97 O2 Delivery N/A Room Air O2 Flow Rate 0 FiO2 21 Hematology Labs: Test 03/04/25 04:10 Range/Units White Blood Count 7.0 4.8-10.8 K/uL Red Blood Count 4.41 4.00-5.50 MIL/uL Hemoglobin 12.1 12.0-16.0 g/dL Hematocrit 36.2 36-48 % Mean Corpuscular Volume 82.1 79-99 fL Mean Corpuscular Hemoglobin 27.4 27.0-33.0 pg Mean Corpuscular Hemoglobin Concent 33.4 32.0-36.0 g/dL Red Cell Distribution Width 12.5 11.0-15.5 % Platelet Count 339 # 130-400 K/uL Mean Platelet Volume 11.6 H 7.5-10.5 fL Immature Granulocyte % (Auto) 0.3 0-1 % Neutrophils (%) (Auto) 57.9 40.0-77.0 % Lymphocytes (%) (Auto) 31.5 21.0-51.0 % Monocytes (%) (Auto) 7.7 3.0-13.0 % Eosinophils (%) (Auto) 2.3 0.0-8.0 % Basophils (%) (Auto) 0.3 0.0-5.0 % Neutrophils # (Auto) 4.1 1.8-7.7 K/uL Lymphocytes # (Auto) 2.2 1.0-4.8 K/uL Monocytes # (Auto) 0.5 0.1-1.0 K/uL Eosinophils # (Auto) 0.16 0.00-0.70 K/uL Basophils # (Auto) 0.02 0.00-0.20 K/uL Absolute Immature Granulocyte (auto 0.02 0-1 K/uL Nucleated Red Blood Cells 0.0 0.0-0.19 % Chemistry Labs: Test 03/04/25 11:11 03/04/25 10:50 03/04/25 04:10 03/03/25 03:49 Range/Units Whole Blood Glucose 170 H 70-110 MG/DL Sodium Level 131 L 136-145 mmol/L Potassium Level 3.1 L 3.5-5.1 mmol/L Chloride Level 98 L 101-111 mmol/L Carbon Dioxide Level 24 21-32 mmol/L Blood Urea Nitrogen 3 L 7-18 mg/dL Creatinine 0.3 L 0.5-1.0 mg/dL Glomerular Filtration Rate Calc 140 >90 mL/min Random Glucose 166 H 70-105 mg/dL Lactic Acid Level 1.0 0.8-2.5 mmol/L Total Calcium 7.9 L 8.5-10.1 mg/dL Phosphorus Level 2.3 L 2.5-4.9 mg/dL Magnesium Level 1.60 L 1.80-2.40 mg/dL Triglycerides Level 96 30-200 mg/dL Cholesterol Level 219 H <200 mg/dL LDL Cholesterol 141 H 0-99 mg/dL HDL Cholesterol 44 35-85 mg/dL Vitamin B12 Level 529 193-986 pg/mL Current Medications Medications (Trade) Dose Ordered Sig/Neva Route Start Time Stop Time Status Last Admin Dose Admin Ceftriaxone Sodium (Rocephin 2gm Inj) 2 gm Q24H IVPB 03/02/25 06:30 03/12/25 06:29 03/04/25 05:24 2 GM Dextrose/Sodium Chloride 1,000 ml @ 0 mls/hr AD IV 03/01/25 23:30 03/02/25 02:00 DC Famotidine (Pepcid 20mg Tab) 20 mg BID PO 03/02/25 09:00 03/04/25 10:30 DC 03/03/25 21:27 20 MG Insulin Glargine (LANtus 100 UNITS/ML 10 ML VIAL) 10 units AM SQ 03/04/25 10:30 04/03/25 10:29 Insulin Human Regular (humuLIN R 100 UNIT/ML 3ML) INSULIN SLIDING SCAL... Q4H SQ 03/02/25 02:30 03/02/25 15:21 DC 03/02/25 06:57 4 UNIT Insulin Human Regular (humuLIN R 100 UNIT/ML 3ML) INSULIN SLIDING SCAL... Q4H SQ 03/02/25 18:00 03/03/25 23:21 DC 03/03/25 21:09 10 UNIT Insulin Human Regular (humuLIN R 100 UNIT/ML 3ML) INSULIN SLIDING SCAL... Q4H4 SQ 03/04/25 00:00 04/03/25 00:00 03/04/25 05:48 4 UNIT Insulin Human Regular (humuLIN R 100 UNIT/ML 3ML) INSULIN SLIDING SCAL... Q6H6 SQ 03/04/25 00:00 03/03/25 23:26 DC Insulin Human Regular 100 unit/ Sodium Chloride 101 ml @ 0 mls/hr PROTOCOL IV 03/01/25 23:30 03/02/25 02:00 DC Magnesium Sulfate 50 ml @ 0 mls/hr PROTOCOL IV 03/01/25 23:30 03/02/25 02:00 DC Mannitol (Osmitrol 20% 250ml Bag) 34 gm AD IV 03/01/25 23:30 03/01/25 23:30 DC Pantoprazole Sodium (PROTonix 40MG INJ) 40 mg BID IVP 03/04/25 10:30 04/03/25 10:29 03/04/25 10:45 40 MG Potassium Chloride/Dextrose/ Sod Cl 1,000 ml @ 0 mls/hr AD IV 03/01/25 23:30 03/02/25 02:00 DC Potassium Chloride/Sodium Chloride 1,000 ml @ 0 mls/hr PROTOCOL IV 03/01/25 23:45 03/02/25 02:00 DC Sodium Chloride 1,000 ml @ 150 mls/hr Q6H40M IV 03/02/25 02:10 04/01/25 02:09 03/04/25 11:01 150 MLS/HR Sodium Chloride 1,000 ml @ 200 mls/hr PROTOCOL IV 03/01/25 23:30 03/02/25 02:00 DC ANTONY ENRIQUEZ MD Mar 04, 2025 11:59
--- NOTE | 2025-03-04 15:07 | PN ---
[facility] PROGRESS NOTE Date of Service: Mar 04, 2025 Time of Service: 14:29 Ms. Flores is a 39-year-old female with a history of DM and surgical history of cholecystectomy who presented to [facility] ED for evaluatoin of ongoing epigastric pain, nausea, and vomiting. She was just seen yesterday and was diagnosed with mild dehydration and she was given prescriptions. However patient stated that her symptoms are persistent and hence she came in for evaluation she has a extensive history of ER visits as well as admissions. The patient denied any fever, chills, rigors, hematemesis or melena VS on arrival: Temperature 98.7, pulse 94, respirations 20, blood pressure 142/87, 97% on room air. ABGs: PH 7.424, pCO2 34, PO2 71.9, bicarbonate 21.6, O2 sats 94.3, base excess -2.1, Labs: Ketones 2.7, WBCs WNL. Platelets 548, MPV 10.9, Na 135, chloride 98, BUN 22, GFR 118, glucose 302. COVID positive. UA: + leuk EST (positive Gram-negative rods on 02/28/2025). CT abdomen and pelvis with contrast: No acute process in the abdomen or pelvis. Status post cholecystectomy. Mildly dilated CBD, which could be secondary to postcholecystectomy physiological changes. Further evaluation with MRCP may be done if there is a clinical suspicion of biliary obstruction. Simple renal corti shaina cyst on the left side. Compared to the prior study, there is no significant interval change. Per chart review: The patient was here for nausea and vomiting on 01/25/2025, serum ketones were 0.5, was discharged with diagnosis of mild dehydration, hyperglycemia, UTI, viral gastroenteritis. She also presented to [facility] on 01/25/2025 for abdominal pain and was discharged from ED. On 01/26/2025 she was admitted for DKA, then returned on 01/30/2025 for intractable nausea and vomiting and was admitted and was discharged home on 02/01/25. ED provider requested patient be admitted to the hospital with the diagnosis of DKA, volume depletion, UTI, intractable nausea and vomiting, elevated ketones body level. SUBJECTIVE: 03/03/2025: Patient was seen at the bedside 201. Her vitals are normal given pulse oximetry is 96. Labs revealed WBC 10.7 Hemoglobin 10.4 hematocrit 32.1 BUN 5 creatinine 0.3, HB A1c 10.4, average glucose 252, total calcium 7.8, phosphorus 1.60. Urinalysis revealed specific gravity 1.032, glucose 1000, ketones 150, occult blood small, leukocyte esterase 75. The patient attempted to take famotidine, but it resulted in vomiting. Currently the patient is on clear liquid diet. Pending gastroenterology consultation. 03/04/2025: Patient was seen in room 201. Patient had no acute events overnight and she is alert and oriented to time place and person. Patient says that her nausea has reduced since discharge however continues to have episodes of vomiting and she had one last night. Patient has sleep epigastric pain that is worse after eating. She is able to tolerate clear liquid diet. Cardiology recommended doing MRCP cholangiopancreaticography. REVIEW OF SYSTEMS CONSTITUTIONAL: Denies fevers, chills, or night sweats. No unintentional weight loss reported. NEUROLOGICAL: Denies headache, motor weakness, sensory deficit, vertigo/spinning sensation CARDIOVASCULAR: Denies any exertional angina, dyspnea on exertion, orthopnea, paroxysmal nocturnal dyspnea, palpitations PULMONARY: Denies any shortness of breath, cough, phlegm/sputum, hemoptysis, pleuritic chest pain. GASTROINTESTINAL: Denies any type of dysphagia to either liquids or solids. Admits to nausea, vomiting, and abdominal pain. Denies early satiety, diarrhea, constipation GENITOURINARY: Denies frequency, urgency, nocturia, hematuria or incontinence DERMATOLOGIC: Denies rashes, itching, redness. PHYSICAL EXAM GENERAL APPEARANCE: The patient is awake, alert, and oriented, in no acute cardiopulmonary distress. NEUROLOGICAL: Cranial nerves II-XII grossly intact. Motor is 5/5 in bilateral upper and lower extremities proximal to distal. No sensory deficits. CHEST: Normal chest expansion. No Telemetry. LUNGS: Absence of any rales, rhonchi or any wheezing. CARDIOVASCULAR: Regular. S1 and S2 normal. No appreciable rubs, murmurs or gallops. ABDOMEN: Soft, tender to palpation in the epigastrium, and nondistended. There is no rebound, voluntary guarding, or rigidity. : Deferred. No Nuñez. EXTREMITIES: Non-edematous and not cyanotic. No clubbing. Good capillary refill. SKIN: No skin breakdown. Vital Signs (last 8hr) Date Time Temp Pulse Resp B/P (MAP) Pulse Ox O2 Delivery O2 Flow Rate FiO2 03/04/25 12:00 99.0 67 20 121/78 98 Room Air 03/04/25 08:09 83 18 N/A Room Air 21 03/04/25 08:00 98.6 67 20 125/75 97 Room Air 03/04/25 08:00 98 Room Air* 0 21 LABS: Laboratory: Test 03/04/25 11:11 03/04/25 10:50 03/04/25 04:10 03/03/25 03:49 Range/Units Whole Blood Glucose 170 H 70-110 MG/DL Lactic Acid Level 1.0 0.8-2.5 mmol/L White Blood Count 7.0 4.8-10.8 K/uL Red Blood Count 4.41 4.00-5.50 MIL/uL Hemoglobin 12.1 12.0-16.0 g/dL Hematocrit 36.2 36-48 % Mean Corpuscular Volume 82.1 79-99 fL Mean Corpuscular Hemoglobin 27.4 27.0-33.0 pg Mean Corpuscular Hemoglobin Concent 33.4 32.0-36.0 g/dL Red Cell Distribution Width 12.5 11.0-15.5 % Platelet Count 339 # 130-400 K/uL Mean Platelet Volume 11.6 H 7.5-10.5 fL Immature Granulocyte % (Auto) 0.3 0-1 % Neutrophils (%) (Auto) 57.9 40.0-77.0 % Lymphocytes (%) (Auto) 31.5 21.0-51.0 % Monocytes (%) (Auto) 7.7 3.0-13.0 % Eosinophils (%) (Auto) 2.3 0.0-8.0 % Basophils (%) (Auto) 0.3 0.0-5.0 % Neutrophils # (Auto) 4.1 1.8-7.7 K/uL Lymphocytes # (Auto) 2.2 1.0-4.8 K/uL Monocytes # (Auto) 0.5 0.1-1.0 K/uL Eosinophils # (Auto) 0.16 0.00-0.70 K/uL Basophils # (Auto) 0.02 0.00-0.20 K/uL Absolute Immature Granulocyte (auto 0.02 0-1 K/uL Nucleated Red Blood Cells 0.0 0.0-0.19 % Sodium Level 133 L 136-145 mmol/L Potassium Level 3.1 L 3.5-5.1 mmol/L Chloride Level 99 L 101-111 mmol/L Carbon Dioxide Level 20 L 21-32 mmol/L Blood Urea Nitrogen 5 L 7-18 mg/dL Creatinine 0.3 L 0.5-1.0 mg/dL Glomerular Filtration Rate Calc 140 >90 mL/min Random Glucose 160 H 70-105 mg/dL Total Calcium 8.0 L 8.5-10.1 mg/dL Phosphorus Level 2.3 L 2.5-4.9 mg/dL Magnesium Level 1.60 L 1.80-2.40 mg/dL Triglycerides Level 96 30-200 mg/dL Cholesterol Level 219 H <200 mg/dL LDL Cholesterol 141 H 0-99 mg/dL HDL Cholesterol 44 35-85 mg/dL Vitamin B12 Level 529 193-986 pg/mL Current Medications Medications (Trade) Dose Ordered Sig/Neva Route PRN Reason Start Time Stop Time Status Last Admin Dose Admin Acetaminophen (TYLenol 325MG TAB) 650 mg Q6H PRN PO FEVER/MILD PAIN LEVEL 1-3 03/02/25 02:30 04/01/25 02:29 Acetaminophen (TYLenol 650MG SUPPOSITORY) 650 mg Q6H PRN RC FEVER / MILD PAIN 1-3 IF NPO 03/02/25 02:30 04/01/25 02:29 Albuterol Sulfate (Proventil 0.083% 2.5mg/3ml) 2.5MG Q6H PRN IH SHORTNESS OF BREATH 03/02/25 07:00 04/01/25 06:59 Ceftriaxone Sodium (Rocephin 2gm Inj) 2 gm Q24H IVPB 03/02/25 06:30 03/12/25 06:29 03/04/25 05:24 2 GM Dextrose (D50w) 50 ml AD PRN IV HYPOGLYCEMIA PROTOCOL 03/02/25 07:00 04/01/25 06:59 Dextrose/Sodium Chloride 1,000 ml @ 0 mls/hr AD IV 03/01/25 23:30 03/02/25 02:00 DC Docusate Sodium (COLace 100MG CAP) 100 mg BID PRN PO c 03/02/25 02:30 04/01/25 02:29 Famotidine (Pepcid 20mg Tab) 20 mg BID PO 03/02/25 09:00 03/04/25 10:30 DC 03/03/25 21:27 20 MG Glucagon (Glucagon 1mg Kit) 1 mg AD PRN IM HYPOGLYCEMIA PROTOCOL 03/02/25 07:00 04/01/25 06:59 Insulin Glargine (LANtus 100 UNITS/ML 10 ML VIAL) 10 units AM SQ 03/04/25 10:30 04/03/25 10:29 Insulin Human Regular (humuLIN R 100 UNIT/ML 3ML) INSULIN SLIDING SCAL... Q4H SQ 03/02/25 02:30 03/02/25 15:21 DC 03/02/25 06:57 4 UNIT Insulin Human Regular (humuLIN R 100 UNIT/ML 3ML) INSULIN SLIDING SCAL... Q4H SQ 03/02/25 18:00 03/03/25 23:21 DC 03/03/25 21:09 10 UNIT Insulin Human Regular (humuLIN R 100 UNIT/ML 3ML) INSULIN SLIDING SCAL... Q4H4 SQ 03/04/25 00:00 04/03/25 00:00 03/04/25 05:48 4 UNIT Insulin Human Regular (humuLIN R 100 UNIT/ML 3ML) INSULIN SLIDING SCAL... Q6H6 SQ 03/04/25 00:00 03/03/25 23:26 DC Insulin Human Regular 100 unit/ Sodium Chloride 101 ml @ 0 mls/hr PROTOCOL IV 03/01/25 23:30 03/02/25 02:00 DC Ipratropium [place] (AtrovENT UD) 0.5 mg Q6H PRN IH SHORTNESS OF BREATH 03/02/25 07:00 04/01/25 06:59 Labetalol HCl (TRANdate 20MG SYG) 10 mg Q2H PRN IV SBP GREATER THAN 160 03/02/25 02:30 04/01/25 02:29 Lactulose (Constulose 20gm/ 30ml Udcup) 20 gm Q6H PRN PO CONSTIPATION 03/02/25 02:30 04/01/25 02:29 Magnesium Sulfate 50 ml @ 0 mls/hr PROTOCOL IV 03/01/25 23:30 03/02/25 02:00 DC Magnesium Sulfate 50 ml @ 0 mls/hr PROTOCOL PRN IV MAGNESIUM PROTOCOL 03/02/25 07:00 04/01/25 06:59 03/03/25 04:36 25 MLS/HR Mannitol (Osmitrol 20% 250ml Bag) 34 gm AD IV 03/01/25 23:30 03/01/25 23:30 DC Morphine Sulfate (morPHINE 2MG SYG) 2 mg Q4H PRN IVP MODERATE PAIN (4-6) 03/02/25 02:30 03/09/25 02:29 03/04/25 11:01 2 MG Ondansetron HCl (zoFRAN 4MG INJ) 4 mg Q6H PRN IVP NAUSEA/VOMITING 03/02/25 02:30 03/03/25 21:46 DC 03/03/25 20:59 4 MG Pantoprazole Sodium (PROTonix 40MG INJ) 40 mg BID IVP 03/04/25 10:30 04/03/25 10:29 03/04/25 10:45 40 MG Potassium Chloride/Dextrose/ Sod Cl 1,000 ml @ 0 mls/hr AD IV 03/01/25 23:30 03/02/25 02:00 DC Potassium Chloride/Sodium Chloride 1,000 ml @ 0 mls/hr PROTOCOL IV 03/01/25 23:45 03/02/25 02:00 DC Potassium Chloride 100 ml @ 50 mls/hr AD PRN IV POTASSIUM PROTOCOL 03/02/25 07:00 04/01/25 06:59 03/04/25 10:46 50 MLS/HR Potassium Chloride (K-Dur/Klor-Con 20meq) 20 meq AD PRN PO POTASSIUM PROTOCOL 03/02/25 07:00 04/01/25 06:59 03/03/25 21:29 20 MEQ Potassium Chloride (KCl 10% Elixir 20meq/15ml) 20 meq AD PRN PO POTASSIUM PROTOCOL 03/02/25 07:00 04/01/25 06:59 Promethazine HCl (Phenergan) 25 mg Q6H PRN IM NAUSEA/VOMITING 03/03/25 22:00 04/02/25 21:59 03/04/25 11:02 25 MG Sodium Chloride 1,000 ml @ 150 mls/hr Q6H40M IV 03/02/25 02:10 04/01/25 02:09 03/04/25 11:01 150 MLS/HR Sodium Chloride 1,000 ml @ 200 mls/hr PROTOCOL IV 03/01/25 23:30 03/02/25 02:00 DC Temazepam (restORIL 15 MG CAP) 15 mg HS PRN PO INSOMNIA/SLEEP 03/02/25 02:30 04/01/25 02:29 DIAGNOSTICS / RADIOLOGY: [ ] ASSESSMENT: Acute dehydration, POA, Dilated CBD, mild, per CT on 03/02/2025 Coronavirus infection, POA Acute complicated cystitis, POA UTI on 02/28/2025 with positive urine culture for Gram-negative rods Diabetes mellitus with hyperglycemia, POA Ketonuria and ketonemia, POA Acute on chronic abdominal pain, POA, with frequent ED visits for abdominal pain & n/v Simple renal cortical cyst on left side, per CT on 03/02/2025 Thrombocytosis, POA Electrolyte derangement (hyponatremia, hypochloremia), POA History of DKA PLAN: Acute on chronic abdominal pain, POA Has a history of recurrent abdominal pain and recurrent N/V and dilated CBD. Gastroenterology recommended MRCP cholangiopancreatography Continue normal saline at 150 mL/hour Continue IV Protonix 40 mg b.i.d. Keep clear fluids for now due to intractable nausea vomiting and abdominal pain. Consider advancing to clear diet once patient is no longer nauseated or vomiting. Diabetes mellitus with hyperglycemia, POA Glucometer checks q.4 hours a.c. and HS with insulin regular sliding scale per protocol. Patient was started on 10 units of insulin Lantus daily Continue insulin sliding scale with regular insulin Patient's HbA1c is 10.4 and has a history of uncontrolled diabetes Ordered an endocrinology consult Acute complicated cystitis, POA Urinalysis positive for leukocyte esterase and pus cells Continue Rocephin 2 g IV daily. Pending culture sensitivity for UA collected on 02/28/2025 COVID-19 infection Patient tested positive for COVID-19 Patient has no labored breathing and well-maintained saturation Continue to monitor oxygen saturation P.r.n. acetaminophen if temperature greater than 100.4 F P.r.n. medications for: Pain management, fever, nausea, vomiting, hypertension, constipation. GI and DVT prophylaxis with SCDs Further plan/orders per hospitalization course. ATTESTATION BY PHYSICIAN I have seen and examined the patient. I reviewed the documentation, medical decision making, and treatment plan as noted by the resident provider above. I agree with the findings and plan of care. ROSANNA VALENZUELA MD, HARSHAVARDHA MD Mar 04, 2025 15:07
[2025-03-04 15:22] LABS: CREATININE 0.4 mg/dL (0.5-1.0); GLOMERULAR FILTR. RATE CALC 131.0 mL/min (>90); GLUCOSE,RANDOM 213.0 mg/dL (70-105); SODIUM SERUM 130.0 mmol/L (136-145); UREA NITROGEN, BLOOD 4.0 mg/dL (7-18)
[2025-03-04] MEDS ORDERED: GADOTERATE MEGLUMINE 10 MMOL/20 ML VIAL IV ONE (17:17)
[2025-03-05] VITALS (8 sets, daily range): BP systolic 99–160; BP diastolic 64–92; PULSE 84–93; RESP 16–18; TEMP 97.8–99.1; O2SAT 99–100
[2025-03-05 03:49] LABS: IMMATURE GRANULOCYTE ABSOLUTE 0.02 K/uL (0-1); NUCLEATED RED BLOOD CELLS 0.0 % (0.0-0.19); PLATELET COUNT (AUTO) 472 K/uL (130-400); RED BLOOD CELL COUNT(AUTO) 4.69 MIL/uL (4.00-5.50); RED CELL DISTRIBUTION WIDTH 12.6 % (11.0-15.5); WHITE BLOOD COUNT (AUTO) 6.8 K/uL (4.8-10.8)
[2025-03-05 04:03] LABS: INR 1.08 (0.85-1.15)
[2025-03-05 04:22] LABS: ASPARTATE AMINOTRANSFERASE 13.0 U/L (10-37); CREATININE 0.4 mg/dL (0.5-1.0); GLOMERULAR FILTR. RATE CALC 131.0 mL/min (>90); GLUCOSE,RANDOM 158.0 mg/dL (70-105); SODIUM SERUM 133.0 mmol/L (136-145); TOTAL PROTEIN, SERUM 7.1 g/dL (6.0-8.3); UREA NITROGEN, BLOOD 5.0 mg/dL (7-18)
--- NOTE | 2025-03-05 14:17 | CONS ---
GASTROENTEROLOGY CONSULTATION NOTE Date of Consultation: Mar 05, 2025 Time of Consultation: 14:07 History of Present Illness: 39-year-old female patient with past medical history for type 2 diabetes, who presented to the emergency room with epigastric pain, nausea and vomiting. Patient had been seen in the emergency room on previous day and was diagnosed with dehydration. Initial WBC of 6.9, hemoglobin 13, MCV 84, platelets 548. CBC today with white count of 6.8, hemoglobin 15, platelets 472. Chemistry significant for sodium of 133, carbon dioxide 20, BUN five, creatinine 0.4, total calcium 8.2, magnesium 1.70, total bilirubin 0.7 AST and ALT normal, alkaline phos 56, total protein 7.1, and albumin 3.2. PT and PTT normal. Patient positive for COVID. CT of abdomen and pelvis significant for status post cholecystectomy with mildly dilated CBD. Simple renal cortical cyst on the left side. Chest x-ray negative. MRCP completed and shows dilated CBD at 1.0 cm and mild central intrahepatic biliary radical dilation, may represent a benign stricture. No choledocholithiasis. On exam, patient is resting on RL. Respirations are regular and unlabored. BBS are clear. Abdomen is soft and tender to upper abdomen. Active BS present. Oriented to poc and recommendations for EUS to evaluate for dilated CBD. Patient's questions were answered and she agreed to proceed with exam. Review of Systems: CONSTITUTIONAL: No malaise or change in sensation of wellbeing. ENMT: No rhinorrhea, otorrhea, sinus pain, ear ache. CARDIOVASCULAR: No angina, palpitations, orthopnea or paroxysmal dyspnea. RESPIRATORY: No SOB. GASTROINTESTINAL: No abdominal pain, nausea, vomiting, diarrhea, hematemesis, melena or change in the patient's habitual bowel movements consistency/number. GENITOURINARY: No dysuria, hematuria or change in bladder continence. MUSCULOSKELETAL: No new muscle pain or decrease in muscular strength. No new joint swelling, redness or tenderness. SKIN: No new rash. Past Medical History: Diabetes PAST SURGICAL HISTORY: Cholecystectomy, , tubal ligation PAST SOCIAL HISTORY: Denied alcohol, tobacco, illicit drug use FAMILY HISTORY: Noncontributory Coded Allergies: ] Coded Allergies: No Known Drug Allergies (Unverified Allergy, Unknown, 10/02/15) Physical Exam: GEN: Awake, alert, oriented in person, time and place, and in no acute distress. HEENT: No rhinorrhea. Oral pharyngeal mucosa is pink, moist and within normal limits. CHEST: Inspection, and palpation of the chest were unremarkable. Lung auscultation revealed normal breath sounds bilaterally. CARDIAC: PMI is within normal limits. Heart sounds are regular. ABD: Soft, tender to upper abdomen, and not distended. No peritoneal signs on palpation. No organomegaly. Normal bowel sounds. EXT: No cyanosis or clubbing. No edema. SKIN: Intact. No rashes. JOINTS: No evidence of synovitis or acute arthritis. NEURO: Alert and oriented to name, place and person. No focal motor deficits. Normal speech. Strength is normal.. Vital Sign (Last 24 Hours) 03/05/25 03/05/25 08:00 12:00 Temp 98.4 Pulse 84 Resp 16 B/P (MAP) 99/64 Pulse Ox 98 O2 Delivery Room Air O2 Flow Rate 0 FiO2 21 Intake & Output (last 24hrs) 03/04/25 03/04/25 03/05/25 15:00 23:00 07:00 Intake Total 200.0 ml 2050.0 ml 1800.0 ml Balance 200.0 ml 2050.0 ml 1800.0 ml Laboratory: [ ] Laboratory: Test 03/05/25 12:23 03/05/25 03:39 03/04/25 10:50 03/04/25 04:10 Range/Units Whole Blood Glucose 180 H 70-110 MG/DL White Blood Count 6.8 4.8-10.8 K/uL Red Blood Count 4.69 4.00-5.50 MIL/uL Hemoglobin 13.0 12.0-16.0 g/dL Hematocrit 38.5 36-48 % Mean Corpuscular Volume 82.1 79-99 fL Mean Corpuscular Hemoglobin 27.7 27.0-33.0 pg Mean Corpuscular Hemoglobin Concent 33.8 32.0-36.0 g/dL Red Cell Distribution Width 12.6 11.0-15.5 % Platelet Count 472 #H 130-400 K/uL Mean Platelet Volume 10.4 7.5-10.5 fL Immature Granulocyte % (Auto) 0.3 0-1 % Neutrophils (%) (Auto) 54.1 40.0-77.0 % Lymphocytes (%) (Auto) 37.2 21.0-51.0 % Monocytes (%) (Auto) 7.9 3.0-13.0 % Eosinophils (%) (Auto) 0.1 0.0-8.0 % Basophils (%) (Auto) 0.4 0.0-5.0 % Neutrophils # (Auto) 3.7 1.8-7.7 K/uL Lymphocytes # (Auto) 2.5 1.0-4.8 K/uL Monocytes # (Auto) 0.5 0.1-1.0 K/uL Eosinophils # (Auto) 0.01 0.00-0.70 K/uL Basophils # (Auto) 0.03 0.00-0.20 K/uL Absolute Immature Granulocyte (auto 0.02 0-1 K/uL Nucleated Red Blood Cells 0.0 0.0-0.19 % Prothrombin Time 11.4 9.6-11.6 SEC Prothromb Time International Ratio 1.08 0.85-1.15 Sodium Level 133 L 136-145 mmol/L Potassium Level 3.6 3.5-5.1 mmol/L Chloride Level 100 L 101-111 mmol/L Carbon Dioxide Level 20 L 21-32 mmol/L Blood Urea Nitrogen 5 L 7-18 mg/dL Creatinine 0.4 L 0.5-1.0 mg/dL Glomerular Filtration Rate Calc 131 >90 mL/min Random Glucose 158 H 70-105 mg/dL Total Calcium 8.2 L 8.5-10.1 mg/dL Magnesium Level 1.70 L 1.80-2.40 mg/dL Total Bilirubin 0.7 0.2-1.0 mg/dL Aspartate Amino Transf (AST/SGOT) 13 10-37 U/L Alanine Aminotransferase (ALT/SGPT) 16 12-78 U/L Alkaline Phosphatase 56 50-136 U/L Total Protein 7.1 6.0-8.3 g/dL Albumin 3.2 L 3.5-5.0 g/dL Lactic Acid Level 1.0 0.8-2.5 mmol/L Phosphorus Level 2.3 L 2.5-4.9 mg/dL Current Medications Medications (Trade) Dose Ordered Sig/Neva Route PRN Reason Start Time Stop Time Status Last Admin Dose Admin Acetaminophen (TYLenol 325MG TAB) 650 mg Q6H PRN PO FEVER/MILD PAIN LEVEL 1-3 8/30/25 02:30 04/01/25 02:29 Acetaminophen (TYLenol 650MG SUPPOSITORY) 650 mg Q6H PRN RC FEVER / MILD PAIN 1-3 IF NPO 03/02/25 02:30 04/01/25 02:29 Albuterol Sulfate (Proventil 0.083% 2.5mg/3ml) 2.5MG Q6H PRN IH SHORTNESS OF BREATH 03/02/25 07:00 04/01/25 06:59 Ceftriaxone Sodium (Rocephin 2gm Inj) 2 gm Q24H IVPB 03/02/25 06:30 03/12/25 06:29 03/05/25 05:05 2 GM Dextrose (D50w) 50 ml AD PRN IV HYPOGLYCEMIA PROTOCOL 03/02/25 07:00 04/01/25 06:59 Dextrose/Sodium Chloride 1,000 ml @ 0 mls/hr AD IV 03/01/25 23:30 03/02/25 02:00 DC Docusate Sodium (COLace 100MG CAP) 100 mg BID PRN PO c 03/02/25 02:30 04/01/25 02:29 Famotidine (Pepcid 20mg Tab) 20 mg BID PO 03/02/25 09:00 03/04/25 10:30 DC 03/03/25 21:27 20 MG Glucagon (Glucagon 1mg Kit) 1 mg AD PRN IM HYPOGLYCEMIA PROTOCOL 03/02/25 07:00 04/01/25 06:59 Insulin Glargine (LANtus 100 UNITS/ML 10 ML VIAL) 10 units AM SQ 03/04/25 10:30 04/03/25 10:03/05/25 09:39 10 UNITS Insulin Human Regular (humuLIN R 100 UNIT/ML 3ML) 5 unit TIDAC SQ 03/05/25 11:30 04/04/25 11:29 03/05/25 12:49 5 UNIT Insulin Human Regular (humuLIN R 100 UNIT/ML 3ML) INSULIN SLIDING SCAL... ACHS SQ 03/05/25 11:30 04/04/25 11:29 03/05/25 12:50 2 UNIT Insulin Human Regular (humuLIN R 100 UNIT/ML 3ML) INSULIN SLIDING SCAL... Q4H SQ 03/02/25 02:30 03/02/25 15:21 DC 03/02/25 06:57 4 UNIT Insulin Human Regular (humuLIN R 100 UNIT/ML 3ML) INSULIN SLIDING SCAL... Q4H SQ 03/02/25 18:00 03/03/25 23:21 DC 03/03/25 21:09 10 UNIT Insulin Human Regular (humuLIN R 100 UNIT/ML 3ML) INSULIN SLIDING SCAL... Q4H4 SQ 03/04/25 00:00 03/05/25 07:40 DC 03/05/25 00:43 4 UNIT Insulin Human Regular (humuLIN R 100 UNIT/ML 3ML) INSULIN SLIDING SCAL... Q6H6 SQ 03/04/25 00:00 03/03/25 23:26 DC Insulin Human Regular 100 unit/ Sodium Chloride 101 ml @ 0 mls/hr PROTOCOL IV 03/01/25 23:30 03/02/25 02:00 DC Ipratropium [place] (AtrovENT UD) 0.5 mg Q6H PRN IH SHORTNESS OF BREATH 03/02/25 07:00 04/01/25 06:59 Labetalol HCl (TRANdate 20MG SYG) 10 mg Q2H PRN IV SBP GREATER THAN 160 03/02/25 02:30 04/01/25 02:29 Lactulose (Constulose 20gm/ 30ml Udcup) 20 gm Q6H PRN PO CONSTIPATION 03/02/25 02:30 04/01/25 02:29 Magnesium Sulfate 50 ml @ 0 mls/hr PROTOCOL IV 03/01/25 23:30 03/02/25 02:00 DC Magnesium Sulfate 50 ml @ 0 mls/hr PROTOCOL PRN IV MAGNESIUM PROTOCOL 03/02/25 07:00 04/01/25 06:59 03/05/25 09:28 25 MLS/HR Mannitol (Osmitrol 20% 250ml Bag) 34 gm AD IV 03/01/25 23:30 03/01/25 23:30 DC Morphine Sulfate (morPHINE 2MG SYG) 2 mg Q4H PRN IVP MODERATE PAIN (4-6) 03/02/25 02:30 03/09/25 02:29 03/05/25 09:49 2 MG Ondansetron HCl (zoFRAN 4MG INJ) 4 mg Q6H PRN IVP NAUSEA/VOMITING 03/02/25 02:30 03/03/25 21:46 DC 03/03/25 20:59 4 MG Pantoprazole Sodium (PROTonix 40MG INJ) 40 mg BID IVP 03/04/25 10:30 04/03/25 10:29 03/05/25 09:27 40 MG Potassium Chloride/Dextrose/ Sod Cl 1,000 ml @ 0 mls/hr AD IV 03/01/25 23:30 03/02/25 02:00 DC Potassium Chloride/Sodium Chloride 1,000 ml @ 0 mls/hr PROTOCOL IV 03/01/25 23:45 03/02/25 02:00 DC Potassium Chloride 100 ml @ 50 mls/hr AD PRN IV POTASSIUM PROTOCOL 03/02/25 07:00 04/01/25 06:59 03/04/25 10:46 50 MLS/HR Potassium Chloride (K-Dur/Klor-Con 20meq) 20 meq AD PRN PO POTASSIUM PROTOCOL 03/02/25 07:00 04/01/25 06:59 03/05/25 09:28 20 MEQ Potassium Chloride (KCl 10% Elixir 20meq/15ml) 20 meq AD PRN PO POTASSIUM PROTOCOL 03/02/25 07:00 04/01/25 06:59 Promethazine HCl (Phenergan) 25 mg Q6H PRN IM NAUSEA/VOMITING 03/03/25 22:00 04/02/25 21:59 03/05/25 10:43 25 MG Sodium Chloride 1,000 ml @ 150 mls/hr Q6H40M IV 03/02/25 02:10 04/01/25 02:09 03/05/25 10:40 150 MLS/HR Sodium Chloride 1,000 ml @ 200 mls/hr PROTOCOL IV 03/01/25 23:30 03/02/25 02:00 DC Temazepam (restORIL 15 MG CAP) 15 mg HS PRN PO INSOMNIA/SLEEP 03/02/25 02:30 04/01/25 02:29 Diagnostics / Radiology: [COPY/PASTE HERE IF NO REPORTS PLEASE DELETE SECTION] Assessment: Abdominal pain Nausea and vomiting Dilated CBD Covid ] Plan: Case discussed with Dr. Susie STUART after midnight Plan for EUS in AM Continue with GI prophylaxis with protonix 40mg IV bid Please call with questions, concerns, and change in clinical status Thank you for allowing us to be part of this patient's care.] JULIETA CEDILLO NP Mar 05, 2025 14:17
--- NOTE | 2025-03-05 14:58 | HMCIMG ---
EXAM: MR Abdomen including MRCP with and without Intravenous Contrast CLINICAL HISTORY: Patient presents with epigastric pain. TECHNIQUE: Multisequence, multiplanar magnetic resonance images of the abdomen with intravenous contrast. CONTRAST: With intravenous contrast. COMPARISON: 03/02/2025. FINDINGS: LOWER THORAX: No pleural effusion. LIVER: Diffuse hepatic steatosis. No focal lesion. GALLBLADDER AND BILE DUCTS: Gallbladder surgically absent. Smooth tapering of the distal common bile duct with upstream dilated common bile duct measuring up to 1.0 cm and mild central intrahepatic biliary radical dilatation. No choledocholithiasis. PANCREAS: Unremarkable. No ductal dilation. SPLEEN: Unremarkable. ADRENALS: Unremarkable. KIDNEYS: 0.8 cm simple cortical cyst in the left renal lower pole. No hydronephrosis or mass. STOMACH AND BOWEL: No acute process demonstrated on limited evaluation. LYMPH NODES: No lymphadenopathy. VASCULATURE: No abdominal aortic aneurysm. IMPRESSION: Diffuse hepatic steatosis. Status post cholecystectomy. Smooth tapering of the distal common bile duct with upstream dilatation of the common bile duct measuring 1.0 cm and mild central intrahepatic biliary dilatation, may represent a benign stricture. Simple cortical cyst in the left kidney lower pole. Recommendation: Correlation with liver function tests and further evaluation with endoscopic ultrasound (EUS) or ERCP for distal common bile duct assessment. /[place]
--- NOTE | 2025-03-05 15:03 | PN ---
[facility] PROGRESS NOTE Date of Service: Mar 05, 2025 Time of Service: 14:49 Ms. Flores is a 39-year-old female with a history of DM and surgical history of cholecystectomy who presented to [facility] ED for evaluatoin of ongoing epigastric pain, nausea, and vomiting. She was just seen yesterday and was diagnosed with mild dehydration and she was given prescriptions. However patient stated that her symptoms are persistent and hence she came in for evaluation she has a extensive history of ER visits as well as admissions. The patient denied any fever, chills, rigors, hematemesis or melena VS on arrival: Temperature 98.7, pulse 94, respirations 20, blood pressure 142/87, 97% on room air. ABGs: PH 7.424, pCO2 34, PO2 71.9, bicarbonate 21.6, O2 sats 94.3, base excess -2.1, Labs: Ketones 2.7, WBCs WNL. Platelets 548, MPV 10.9, Na 135, chloride 98, BUN 22, GFR 118, glucose 302. COVID positive. UA: + leuk EST (positive Gram-negative rods on 02/28/2025). CT abdomen and pelvis with contrast: No acute process in the abdomen or pelvis. Status post cholecystectomy. Mildly dilated CBD, which could be secondary to postcholecystectomy physiological changes. Further evaluation with MRCP may be done if there is a clinical suspicion of biliary obstruction. Simple renal corti shaina cyst on the left side. Compared to the prior study, there is no significant interval change. Per chart review: The patient was here for nausea and vomiting on 01/25/2025, serum ketones were 0.5, was discharged with diagnosis of mild dehydration, hyperglycemia, UTI, viral gastroenteritis. She also presented to [facility] on 01/25/2025 for abdominal pain and was discharged from ED. On 01/26/2025 she was admitted for DKA, then returned on 01/30/2025 for intractable nausea and vomiting and was admitted and was discharged home on 02/01/25. ED provider requested patient be admitted to the hospital with the diagnosis of DKA, volume depletion, UTI, intractable nausea and vomiting, elevated ketones body level. SUBJECTIVE: 03/03/2025: Patient was seen at the bedside 201. Her vitals are normal given pulse oximetry is 96. Labs revealed WBC 10.7 Hemoglobin 10.4 hematocrit 32.1 BUN 5 creatinine 0.3, HB A1c 10.4, average glucose 252, total calcium 7.8, phosphorus 1.60. Urinalysis revealed specific gravity 1.032, glucose 1000, ketones 150, occult blood small, leukocyte esterase 75. The patient attempted to take famotidine, but it resulted in vomiting. Currently the patient is on clear liquid diet. Pending gastroenterology consultation. 03/04/2025: Patient was seen in room 201. Patient had no acute events overnight and she is alert and oriented to time place and person. Patient says that her nausea has reduced since discharge however continues to have episodes of vomiting and she had one last night. Patient has sleep epigastric pain that is worse after eating. She is able to tolerate clear liquid diet. Cardiology recommended doing MRCP cholangiopancreaticography. 03/05/25 was seen earlier. MRCP was completed but results are still pending. As per GI she most likely we will need a ERCP if MRCP is positive. Primary nurse reports no events overnight REVIEW OF SYSTEMS CONSTITUTIONAL: Denies fevers, chills, or night sweats. No unintentional weight loss reported. NEUROLOGICAL: Denies headache, motor weakness, sensory deficit, vertigo/spinning sensation CARDIOVASCULAR: Denies any exertional angina, dyspnea on exertion, orthopnea, paroxysmal nocturnal dyspnea, palpitations PULMONARY: Denies any shortness of breath, cough, phlegm/sputum, hemoptysis, pleuritic chest pain. GASTROINTESTINAL: Denies any type of dysphagia to either liquids or solids. Admits to nausea, vomiting, and abdominal pain. Denies early satiety, diarrhea, constipation GENITOURINARY: Denies frequency, urgency, nocturia, hematuria or incontinence DERMATOLOGIC: Denies rashes, itching, redness. PHYSICAL EXAM GENERAL APPEARANCE: The patient is awake, alert, and oriented, in no acute cardiopulmonary distress. NEUROLOGICAL: Cranial nerves II-XII grossly intact. Motor is 5/5 in bilateral upper and lower extremities proximal to distal. No sensory deficits. CHEST: Normal chest expansion. No Telemetry. LUNGS: Absence of any rales, rhonchi or any wheezing. CARDIOVASCULAR: Regular. S1 and S2 normal. No appreciable rubs, murmurs or gallops. ABDOMEN: Soft, tender to palpation in the epigastrium, and nondistended. There is no rebound, voluntary guarding, or rigidity. : Deferred. No Nuñez. EXTREMITIES: Non-edematous and not cyanotic. No clubbing. Good capillary refill. SKIN: No skin breakdown. Vital Signs (last 8hr) Date Time Temp Pulse Resp B/P (MAP) Pulse Ox O2 Delivery O2 Flow Rate FiO2 03/05/25 12:00 98.4 84 16 99/64 98 Room Air 03/05/25 08:00 99.0 85 16 160/92 100 Room Air 03/05/25 08:00 100 Room Air* 0 21 03/05/25 07:35 86 18 N/A Room Air 21 LABS: Laboratory: Test 03/05/25 12:23 03/05/25 03:39 03/04/25 10:50 03/04/25 04:10 Range/Units Whole Blood Glucose 180 H 70-110 MG/DL White Blood Count 6.8 4.8-10.8 K/uL Red Blood Count 4.69 4.00-5.50 MIL/uL Hemoglobin 13.0 12.0-16.0 g/dL Hematocrit 38.5 36-48 % Mean Corpuscular Volume 82.1 79-99 fL Mean Corpuscular Hemoglobin 27.7 27.0-33.0 pg Mean Corpuscular Hemoglobin Concent 33.8 32.0-36.0 g/dL Red Cell Distribution Width 12.6 11.0-15.5 % Platelet Count 472 #H 130-400 K/uL Mean Platelet Volume 10.4 7.5-10.5 fL Immature Granulocyte % (Auto) 0.3 0-1 % Neutrophils (%) (Auto) 54.1 40.0-77.0 % Lymphocytes (%) (Auto) 37.2 21.0-51.0 % Monocytes (%) (Auto) 7.9 3.0-13.0 % Eosinophils (%) (Auto) 0.1 0.0-8.0 % Basophils (%) (Auto) 0.4 0.0-5.0 % Neutrophils # (Auto) 3.7 1.8-7.7 K/uL Lymphocytes # (Auto) 2.5 1.0-4.8 K/uL Monocytes # (Auto) 0.5 0.1-1.0 K/uL Eosinophils # (Auto) 0.01 0.00-0.70 K/uL Basophils # (Auto) 0.03 0.00-0.20 K/uL Absolute Immature Granulocyte (auto 0.02 0-1 K/uL Nucleated Red Blood Cells 0.0 0.0-0.19 % Prothrombin Time 11.4 9.6-11.6 SEC Prothromb Time International Ratio 1.08 0.85-1.15 Sodium Level 133 L 136-145 mmol/L Potassium Level 3.6 3.5-5.1 mmol/L Chloride Level 100 L 101-111 mmol/L Carbon Dioxide Level 20 L 21-32 mmol/L Blood Urea Nitrogen 5 L 7-18 mg/dL Creatinine 0.4 L 0.5-1.0 mg/dL Glomerular Filtration Rate Calc 131 >90 mL/min Random Glucose 158 H 70-105 mg/dL Total Calcium 8.2 L 8.5-10.1 mg/dL Magnesium Level 1.70 L 1.80-2.40 mg/dL Total Bilirubin 0.7 0.2-1.0 mg/dL Aspartate Amino Transf (AST/SGOT) 13 10-37 U/L Alanine Aminotransferase (ALT/SGPT) 16 12-78 U/L Alkaline Phosphatase 56 50-136 U/L Total Protein 7.1 6.0-8.3 g/dL Albumin 3.2 L 3.5-5.0 g/dL Lactic Acid Level 1.0 0.8-2.5 mmol/L Phosphorus Level 2.3 L 2.5-4.9 mg/dL Current Medications Medications (Trade) Dose Ordered Sig/Neva Route PRN Reason Start Time Stop Time Status Last Admin Dose Admin Acetaminophen (TYLenol 325MG TAB) 650 mg Q6H PRN PO FEVER/MILD PAIN LEVEL 1-3 03/02/25 02:30 04/01/25 02:29 Acetaminophen (TYLenol 650MG SUPPOSITORY) 650 mg Q6H PRN RC FEVER / MILD PAIN 1-3 IF NPO 03/02/25 02:30 04/01/25 02:29 Albuterol Sulfate (Proventil 0.083% 2.5mg/3ml) 2.5MG Q6H PRN IH SHORTNESS OF BREATH 03/02/25 07:00 04/01/25 06:59 Ceftriaxone Sodium (Rocephin 2gm Inj) 2 gm Q24H IVPB 03/02/25 06:30 03/12/25 06:29 03/05/25 05:05 2 GM Dextrose (D50w) 50 ml AD PRN IV HYPOGLYCEMIA PROTOCOL 03/02/25 07:00 04/01/25 06:59 Dextrose/Sodium Chloride 1,000 ml @ 0 mls/hr AD IV 03/01/25 23:30 03/02/25 02:00 DC Docusate Sodium (COLace 100MG CAP) 100 mg BID PRN PO c 03/02/25 02:30 04/01/25 02:29 Famotidine (Pepcid 20mg Tab) 20 mg BID PO 03/02/25 09:00 03/04/25 10:30 DC 03/03/25 21:27 20 MG Glucagon (Glucagon 1mg Kit) 1 mg AD PRN IM HYPOGLYCEMIA PROTOCOL 03/02/25 07:00 04/01/25 06:59 Insulin Glargine (LANtus 100 UNITS/ML 10 ML VIAL) 10 units AM SQ 03/04/25 10:30 04/03/25 10:29 03/05/25 09:39 10 UNITS Insulin Human Regular (humuLIN R 100 UNIT/ML 3ML) 5 unit TIDAC SQ 03/05/25 11:30 04/04/25 11:29 03/05/25 12:49 5 UNIT Insulin Human Regular (humuLIN R 100 UNIT/ML 3ML) INSULIN SLIDING SCAL... ACHS SQ 03/05/25 11:30 04/04/25 11:29 03/05/25 12:50 2 UNIT Insulin Human Regular (humuLIN R 100 UNIT/ML 3ML) INSULIN SLIDING SCAL... Q4H SQ 03/02/25 02:30 03/02/25 15:21 DC 03/02/25 06:57 4 UNIT Insulin Human Regular (humuLIN R 100 UNIT/ML 3ML) INSULIN SLIDING SCAL... Q4H SQ 03/02/25 18:00 03/03/25 23:21 DC 03/03/25 21:09 10 UNIT Insulin Human Regular (humuLIN R 100 UNIT/ML 3ML) INSULIN SLIDING SCAL... Q4H4 SQ 03/04/25 00:00 03/05/25 07:40 DC 03/05/25 00:43 4 UNIT Insulin Human Regular (humuLIN R 100 UNIT/ML 3ML) INSULIN SLIDING SCAL... Q6H6 SQ 03/04/25 00:00 03/03/25 23:26 DC Insulin Human Regular 100 unit/ Sodium Chloride 101 ml @ 0 mls/hr PROTOCOL IV 03/01/25 23:30 03/02/25 02:00 DC Ipratropium Searchlight (AtrovENT UD) 0.5 mg Q6H PRN IH SHORTNESS OF BREATH 03/02/25 07:00 04/01/25 06:59 Labetalol HCl (TRANdate 20MG SYG) 10 mg Q2H PRN IV SBP GREATER THAN 160 03/02/25 02:30 04/01/25 02:29 Lactulose (Constulose 20gm/ 30ml Udcup) 20 gm Q6H PRN PO CONSTIPATION 03/02/25 02:30 04/01/25 02:29 Magnesium Sulfate 50 ml @ 0 mls/hr PROTOCOL IV 03/01/25 23:30 03/02/25 02:00 DC Magnesium Sulfate 50 ml @ 0 mls/hr PROTOCOL PRN IV MAGNESIUM PROTOCOL 03/02/25 07:00 04/01/25 06:59 03/05/25 09:28 25 MLS/HR Mannitol (Osmitrol 20% 250ml Bag) 34 gm AD IV 03/01/25 23:30 03/01/25 23:30 DC Morphine Sulfate (morPHINE 2MG SYG) 2 mg Q4H PRN IVP MODERATE PAIN (4-6) 03/02/25 02:30 03/09/25 02:29 03/05/25 09:49 2 MG Ondansetron HCl (zoFRAN 4MG INJ) 4 mg Q6H PRN IVP NAUSEA/VOMITING 03/02/25 02:30 03/03/25 21:46 DC 03/03/25 20:59 4 MG Pantoprazole Sodium (PROTonix 40MG INJ) 40 mg BID IVP 03/04/25 10:30 04/03/25 10:29 03/05/25 09:27 40 MG Potassium Chloride/Dextrose/ Sod Cl 1,000 ml @ 0 mls/hr AD IV 03/01/25 23:30 03/02/25 02:00 DC Potassium Chloride/Sodium Chloride 1,000 ml @ 0 mls/hr PROTOCOL IV 03/01/25 23:45 03/02/25 02:00 DC Potassium Chloride 100 ml @ 50 mls/hr AD PRN IV POTASSIUM PROTOCOL 03/02/25 07:00 04/01/25 06:59 03/04/25 10:46 50 MLS/HR Potassium Chloride (K-Dur/Klor-Con 20meq) 20 meq AD PRN PO POTASSIUM PROTOCOL 03/02/25 07:00 04/01/25 06:59 03/05/25 09:28 20 MEQ Potassium Chloride (KCl 10% Elixir 20meq/15ml) 20 meq AD PRN PO POTASSIUM PROTOCOL 03/02/25 07:00 04/01/25 06:59 Promethazine HCl (Phenergan) 25 mg Q6H PRN IM NAUSEA/VOMITING 03/03/25 22:00 04/02/25 21:59 03/05/25 10:43 25 MG Sodium Chloride 1,000 ml @ 150 mls/hr Q6H40M IV 03/02/25 02:10 04/01/25 02:09 03/05/25 10:40 150 MLS/HR Sodium Chloride 1,000 ml @ 200 mls/hr PROTOCOL IV 03/01/25 23:30 03/02/25 02:00 DC Temazepam (restORIL 15 MG CAP) 15 mg HS PRN PO INSOMNIA/SLEEP 03/02/25 02:30 04/01/25 02:29 DIAGNOSTICS / RADIOLOGY: [ ] ASSESSMENT: Acute dehydration, POA, Dilated CBD, mild, per CT on 03/02/2025 Coronavirus infection, POA Acute complicated cystitis, POA UTI on 02/28/2025 with positive urine culture for Gram-negative rods Diabetes mellitus with hyperglycemia, POA Ketonuria and ketonemia, POA Acute on chronic abdominal pain, POA, with frequent ED visits for abdominal pain & n/v Simple renal cortical cyst on left side, per CT on 03/02/2025 Thrombocytosis, POA Electrolyte derangement (hyponatremia, hypochloremia), POA History of DKA PLAN: Acute on chronic abdominal pain, POA Has a history of recurrent abdominal pain and recurrent N/V and dilated CBD. Gastroenterology consulted: MRCP: pending results Continue normal saline at 150 mL/hour Continue IV Protonix 40 mg b.i.d. Keep clear fluids for now due to intractable nausea vomiting and abdominal pain. Diabetes mellitus with hyperglycemia, POA Glucometer checks q.4 hours a.c. and HS with insulin regular sliding scale per protocol. Patient was started on 10 units of insulin Lantus daily Continue insulin sliding scale with regular insulin Patient's HbA1c is 10.4 and has a history of uncontrolled diabetes Ordered an endocrinology consult Acute complicated cystitis, POA Urinalysis positive for leukocyte esterase and pus cells Continue Rocephin 2 g IV daily. Pending culture sensitivity for UA collected on 02/28/2025 COVID-19 infection Patient tested positive for COVID-19 Patient has no labored breathing and well-maintained saturation Continue to monitor oxygen saturation P.r.n. acetaminophen if temperature greater than 100.4 F P.r.n. medications for: Pain management, fever, nausea, vomiting, hypertension, constipation. GI and DVT prophylaxis with SCDs Further plan/orders per hospitalization course. ATTESTATION BY PHYSICIAN I have seen and examined the patient. I reviewed the documentation, medical decision making, and treatment plan as noted by the mid-level provider above. I agree with the findings and plan of care. Paz Guillaume MD, ELIZABETH NP Mar 05, 2025 15:03
[2025-03-05 15:31] LABS: IMMATURE GRANULOCYTE ABSOLUTE 0.03 K/uL (0-1); NUCLEATED RED BLOOD CELLS 0.0 % (0.0-0.19); PLATELET COUNT (AUTO) 453 K/uL (130-400); RED BLOOD CELL COUNT(AUTO) 4.55 MIL/uL (4.00-5.50); RED CELL DISTRIBUTION WIDTH 12.7 % (11.0-15.5); WHITE BLOOD COUNT (AUTO) 8.2 K/uL (4.8-10.8)
[2025-03-05 15:50] LABS: ASPARTATE AMINOTRANSFERASE 12.0 U/L (10-37); CREATININE 0.4 mg/dL (0.5-1.0); GLOMERULAR FILTR. RATE CALC 131.0 mL/min (>90); GLUCOSE,RANDOM 246.0 mg/dL (70-105); SODIUM SERUM 133.0 mmol/L (136-145); TOTAL PROTEIN, SERUM 6.7 g/dL (6.0-8.3); UREA NITROGEN, BLOOD 7.0 mg/dL (7-18)
[2025-03-06 03:32] LABS: NUCLEATED RED BLOOD CELLS 0.0 % (0.0-0.19); PLATELET COUNT (AUTO) 254.0 K/uL (130-400); RED BLOOD CELL COUNT(AUTO) 4.76 MIL/uL (4.00-5.50); RED CELL DISTRIBUTION WIDTH 12.9 % (11.0-15.5); WHITE BLOOD COUNT (AUTO) 7.4 K/uL (4.8-10.8)
[2025-03-06 03:39] LABS: CREATININE 0.3 mg/dL (0.5-1.0); GLOMERULAR FILTR. RATE CALC 140.0 mL/min (>90); GLUCOSE,RANDOM 148.0 mg/dL (70-105); SODIUM SERUM 134.0 mmol/L (136-145); UREA NITROGEN, BLOOD 6.0 mg/dL (7-18)
[2025-03-06 04:00] VITALS: BP 132/67; PULSE 82; RESP 18; TEMP 98.5
[2025-03-06 08:00] VITALS: BP 96/64; PULSE 76; RESP 16; TEMP 98.5; O2SAT 100
[2025-03-06 08:27] LABS: ASPARTATE AMINOTRANSFERASE 21.0 U/L (10-37); TOTAL PROTEIN, SERUM 7.0 g/dL (6.0-8.3)
--- NOTE | 2025-03-06 11:45 | PN ---
[facility] PROGRESS NOTE Date of Service: Mar 06, 2025 Time of Service: 11:05 Ms. Pitt is a 39-year-old female with a history of DM and surgical history of cholecystectomy who presented [place] [facility] [place] evaluatoin of ongoing epigastric pain, nausea, and vomiting. She was just seen yesterday and was diagnosed with mild dehydration and she was given prescriptions. However patient stated that her symptoms are persistent and hence she came in for evaluation she has a extensive history of ER visits as well as admissions. The patient denied any fever, chills, rigors, hematemesis or melena VS on arrival: Temperature 98.7, pulse 94, respirations 20, blood pressure 142/87, 97% on room air. ABGs: PH 7.424, pCO2 34, PO2 71.9, bicarbonate 21.6, O2 sats 94.3, base excess -2.1, Labs: Ketones 2.7, WBCs WNL. Platelets 548, MPV 10.9, Na 135, chloride 98, BUN 22, GFR 118, glucose 302. COVID positive. UA: + leuk EST (positive Gram-negative rods on 02/28/2025). CT abdomen and pelvis with contrast: No acute process in the abdomen or pelvis. Status post cholecystectomy. Mildly dilated CBD, which could be secondary to postcholecystectomy physiological changes. Further evaluation with MRCP may be done if there is a clinical suspicion of biliary obstruction. Simple renal corti shaina cyst on the left side. Compared to the prior study, there is no significant interval change. Per chart review: The patient was here for nausea and vomiting on 01/25/2025, serum ketones were 0.5, was discharged with diagnosis of mild dehydration, hyperglycemia, UTI, viral gastroenteritis. She also presented [place] [facility] [place] for abdominal pain and was discharged from ED. On 01/26/2025 she was admitted for DKA, then returned on 01/30/2025 for intractable nausea and vomiting and was admitted and was discharged home on 02/01/25. ED provider requested patient be admitted to the hospital with the diagnosis of DKA, volume depletion, UTI, intractable nausea and vomiting, elevated ketones body level. SUBJECTIVE: 03/03/2025: Patient was seen at the bedside 201. Her vitals are normal given pulse oximetry is 96. Labs revealed WBC 10.7 Hemoglobin 10.4 hematocrit 32.1 BUN 5 creatinine 0.3, HB A1c 10.4, average glucose 252, total calcium 7.8, phosphorus 1.60. Urinalysis revealed specific gravity 1.032, glucose 1000, ketones 150, occult blood small, leukocyte esterase 75. The patient attempted to take famotidine, but it resulted in vomiting. Currently the patient is on clear liquid diet. Pending gastroenterology consultation. 03/04/2025: Patient was seen in room 201. Patient had no acute events overnight and she is alert and oriented to time place and person. Patient says that her nausea has reduced since discharge however continues to have episodes of vomiting and she had one last night. Patient has sleep epigastric pain that is worse after eating. She is able to tolerate clear liquid diet. Cardiology recommended doing MRCP cholangiopancreaticography. 03/05/25 was seen earlier. MRCP was completed but results are still pending. As per GI she most likely we will need a ERCP if MRCP is positive. Primary nurse reports no events overnight. 03/06/2025: Patient was seen in the room to 201 and was evaluated at the bedside. Patient still reports mild nausea and epigastric pain. Patient denies vomiting, diarrhea, fever, chills, and shortness of breath. Patient underwent MRCP yesterday that showed mild dilation of CBD at 1 cm and intrahepatic biliary radical dilation concerning for stricture. Patient will undergo endoscopic ultrasound this morning for further evaluation and possible ERCP positive. Patient is able to tolerate clear liquid diet and we will advance her diet once her nausea subsides. REVIEW OF SYSTEMS CONSTITUTIONAL: Denies fevers, chills, or night sweats. No unintentional weight loss reported. NEUROLOGICAL: Denies headache, motor weakness, sensory deficit, vertigo/spinning sensation CARDIOVASCULAR: Denies any exertional angina, dyspnea on exertion, orthopnea, paroxysmal nocturnal dyspnea, palpitations PULMONARY: Denies any shortness of breath, cough, phlegm/sputum, hemoptysis, pleuritic chest pain. GASTROINTESTINAL: Denies any type of dysphagia to either liquids or solids. Admits to nausea and abdominal pain. Denies early satiety, diarrhea, constipation GENITOURINARY: Denies frequency, urgency, nocturia, hematuria or incontinence DERMATOLOGIC: Denies rashes, itching, redness. PHYSICAL EXAM GENERAL APPEARANCE: The patient is awake, alert, and oriented, in no acute cardiopulmonary distress. NEUROLOGICAL: Cranial nerves II-XII grossly intact. Motor is 5/5 in bilateral upper and lower extremities proximal to distal. No sensory deficits. CHEST: Normal chest expansion. No Telemetry. LUNGS: Absence of any rales, rhonchi or any wheezing. CARDIOVASCULAR: Regular. S1 and S2 normal. No appreciable rubs, murmurs or gallops. ABDOMEN: Soft, tender to palpation in the epigastrium, and nondistended. There is no rebound, voluntary guarding, or rigidity. : Deferred. No Nuñez. EXTREMITIES: Non-edematous and not cyanotic. No clubbing. Good capillary refill. SKIN: No skin breakdown. Vital Signs (last 8hr) Date Time Temp Pulse Resp B/P (MAP) Pulse Ox O2 Delivery O2 Flow Rate FiO2 03/06/25 08:00 98.4 76 16 96/64 100 Room Air 03/06/25 04:00 98.4 82 18 132/67 97 Room Air LABS: Laboratory: Test 03/06/25 06:21 03/06/25 03:08 03/05/25 15:22 03/05/25 03:39 Range/Units Whole Blood Glucose 189 #H 70-110 MG/DL White Blood Count 7.4 4.8-10.8 K/uL Red Blood Count 4.76 4.00-5.50 MIL/uL Hemoglobin 13.1 12.0-16.0 g/dL Hematocrit 39.6 36-48 % Mean Corpuscular Volume 83.2 79-99 fL Mean Corpuscular Hemoglobin 27.5 27.0-33.0 pg Mean Corpuscular Hemoglobin Concent 33.1 32.0-36.0 g/dL Red Cell Distribution Width 12.9 11.0-15.5 % Platelet Count 254 # 130-400 K/uL Mean Platelet Volume 12.2 H 7.5-10.5 fL Nucleated Red Blood Cells 0.0 0.0-0.19 % Sodium Level 134 L 136-145 mmol/L Potassium Level 3.7 3.5-5.1 mmol/L Chloride Level 99 L 101-111 mmol/L Carbon Dioxide Level 22 21-32 mmol/L Blood Urea Nitrogen 6 L 7-18 mg/dL Creatinine 0.3 L 0.5-1.0 mg/dL Glomerular Filtration Rate Calc 140 >90 mL/min Random Glucose 148 H 70-105 mg/dL Total Calcium 8.3 L 8.5-10.1 mg/dL Total Bilirubin 0.7 0.2-1.0 mg/dL Direct Bilirubin 0.1 0.0-0.3 mg/dL Aspartate Amino Transf (AST/SGOT) 21 10-37 U/L Alanine Aminotransferase (ALT/SGPT) 15 12-78 U/L Alkaline Phosphatase 56 50-136 U/L Total Protein 7.0 6.0-8.3 g/dL Albumin 3.3 L 3.5-5.0 g/dL Immature Granulocyte % (Auto) 0.4 0-1 % Neutrophils (%) (Auto) 60.4 40.0-77.0 % Lymphocytes (%) (Auto) 29.5 21.0-51.0 % Monocytes (%) (Auto) 9.1 3.0-13.0 % Eosinophils (%) (Auto) 0.2 0.0-8.0 % Basophils (%) (Auto) 0.4 0.0-5.0 % Neutrophils # (Auto) 4.9 1.8-7.7 K/uL Lymphocytes # (Auto) 2.4 1.0-4.8 K/uL Monocytes # (Auto) 0.7 0.1-1.0 K/uL Eosinophils # (Auto) 0.02 0.00-0.70 K/uL Basophils # (Auto) 0.03 0.00-0.20 K/uL Absolute Immature Granulocyte (auto 0.03 0-1 K/uL Magnesium Level 2.00 1.80-2.40 mg/dL Prothrombin Time 11.4 9.6-11.6 SEC Prothromb Time International Ratio 1.08 0.85-1.15 Current Medications Medications (Trade) Dose Ordered Sig/Neva Route PRN Reason Start Time Stop Time Status Last Admin Dose Admin Acetaminophen (TYLenol 325MG TAB) 650 mg Q6H PRN PO FEVER/MILD PAIN LEVEL 1-3 03/02/25 02:30 04/01/25 02:29 Acetaminophen (TYLenol 650MG SUPPOSITORY) 650 mg Q6H PRN RC FEVER / MILD PAIN 1-3 IF NPO 03/02/25 02:30 04/01/25 02:29 Albuterol Sulfate (Proventil 0.083% 2.5mg/3ml) 2.5MG Q6H PRN IH SHORTNESS OF BREATH 03/02/25 07:00 04/01/25 06:59 Ceftriaxone Sodium (Rocephin 2gm Inj) 2 gm Q24H IVPB 03/02/25 06:30 03/12/25 06:29 03/06/25 06:33 2 GM Dextrose (D50w) 50 ml AD PRN IV HYPOGLYCEMIA PROTOCOL 03/02/25 07:00 04/01/25 06:59 Dextrose/Sodium Chloride 1,000 ml @ 0 mls/hr AD IV 03/01/25 23:30 03/02/25 02:00 DC Docusate Sodium (COLace 100MG CAP) 100 mg BID PRN PO c 03/02/25 02:30 04/01/25 02:29 Famotidine (Pepcid 20mg Tab) 20 mg BID PO 03/02/25 09:00 03/04/25 10:30 DC 03/03/25 21:27 20 MG Glucagon (Glucagon 1mg Kit) 1 mg AD PRN IM HYPOGLYCEMIA PROTOCOL 03/02/25 07:00 04/01/25 06:59 Insulin Glargine (LANtus 100 UNITS/ML 10 ML VIAL) 10 units AM SQ 03/04/25 10:30 04/03/25 10:29 03/05/25 09:39 10 UNITS Insulin Human Regular (humuLIN R 100 UNIT/ML 3ML) 5 unit TIDAC SQ 03/05/25 11:30 03/06/25 05:52 DC 03/05/25 16:07 5 UNIT Insulin Human Regular (humuLIN R 100 UNIT/ML 3ML) 6 unit TIDAC SQ 03/06/25 07:30 04/05/25 07:29 Insulin Human Regular (humuLIN R 100 UNIT/ML 3ML) INSULIN SLIDING SCAL... ACHS SQ 03/05/25 11:30 04/04/25 11:29 03/05/25 16:08 6 UNIT Insulin Human Regular (humuLIN R 100 UNIT/ML 3ML) INSULIN SLIDING SCAL... Q4H SQ 03/02/25 02:30 03/02/25 15:21 DC 03/02/25 06:57 4 UNIT Insulin Human Regular (humuLIN R 100 UNIT/ML 3ML) INSULIN SLIDING SCAL... Q4H SQ 03/02/25 18:00 03/03/25 23:21 DC 03/03/25 21:09 10 UNIT Insulin Human Regular (humuLIN R 100 UNIT/ML 3ML) INSULIN SLIDING SCAL... Q4H4 SQ 03/04/25 00:00 03/05/25 07:40 DC 03/05/25 00:43 4 UNIT Insulin Human Regular (humuLIN R 100 UNIT/ML 3ML) INSULIN SLIDING SCAL... Q6H6 SQ 03/04/25 00:00 03/03/25 23:26 DC Insulin Human Regular 100 unit/ Sodium Chloride 101 ml @ 0 mls/hr PROTOCOL IV 03/01/25 23:30 03/02/25 02:00 DC Ipratropium [place] (AtrovENT UD) 0.5 mg Q6H PRN IH SHORTNESS OF BREATH 03/02/25 07:00 04/01/25 06:59 Labetalol HCl (TRANdate 20MG SYG) 10 mg Q2H PRN IV SBP GREATER THAN 160 03/02/25 02:30 04/01/25 02:29 Lactulose (Constulose 20gm/ 30ml Udcup) 20 gm Q6H PRN PO CONSTIPATION 03/02/25 02:30 04/01/25 02:29 Magnesium Sulfate 50 ml @ 0 mls/hr PROTOCOL IV 03/01/25 23:30 03/02/25 02:00 DC Magnesium Sulfate 50 ml @ 0 mls/hr PROTOCOL PRN IV MAGNESIUM PROTOCOL 03/02/25 07:00 04/01/25 06:59 03/05/25 09:28 25 MLS/HR Mannitol (Osmitrol 20% 250ml Bag) 34 gm AD IV 03/01/25 23:30 03/01/25 23:30 DC Morphine Sulfate (morPHINE 2MG SYG) 2 mg Q4H PRN IVP MODERATE PAIN (4-6) 03/02/25 02:30 03/09/25 02:29 03/06/25 06:42 2 MG Ondansetron HCl (zoFRAN 4MG INJ) 4 mg Q6H PRN IVP NAUSEA/VOMITING 03/02/25 02:30 03/03/25 21:46 DC 03/03/25 20:59 4 MG Pantoprazole Sodium (PROTonix 40MG INJ) 40 mg BID IVP 03/04/25 10:30 04/03/25 10:29 03/06/25 10:32 40 MG Potassium Chloride/Dextrose/ Sod Cl 1,000 ml @ 0 mls/hr AD IV 03/01/25 23:30 03/02/25 02:00 DC Potassium Chloride/Sodium Chloride 1,000 ml @ 0 mls/hr PROTOCOL IV 03/01/25 23:45 03/02/25 02:00 DC Potassium Chloride 100 ml @ 50 mls/hr AD PRN IV POTASSIUM PROTOCOL 03/02/25 07:00 04/01/25 06:59 03/04/25 10:46 50 MLS/HR Potassium Chloride (K-Dur/Klor-Con 20meq) 20 meq AD PRN PO POTASSIUM PROTOCOL 03/02/25 07:00 04/01/25 06:59 03/05/25 09:28 20 MEQ Potassium Chloride (KCl 10% Elixir 20meq/15ml) 20 meq AD PRN PO POTASSIUM PROTOCOL 03/02/25 07:00 04/01/25 06:59 Promethazine HCl (Phenergan) 25 mg Q6H PRN IM NAUSEA/VOMITING 03/03/25 22:00 04/02/25 21:59 03/05/25 10:43 25 MG Sodium Chloride 1,000 ml @ 75 mls/hr [id number] IV 03/02/25 02:10 04/01/25 02:09 03/06/25 07:57 75 MLS/HR Sodium Chloride 1,000 ml @ 200 mls/hr PROTOCOL IV 03/01/25 23:30 03/02/25 02:00 DC Temazepam (restORIL 15 MG CAP) 15 mg HS PRN PO INSOMNIA/SLEEP 03/02/25 02:30 04/01/25 02:29 DIAGNOSTICS / RADIOLOGY: [ ] PATIENT: RAEANN PITT MR#: [id number] : 1985 SEX: F AGE: 39 LOCATION: 2AH ORDER 1040 STATUS: ADM IN REPORT#: [id number] SERVICE 1037 REASON: EPIGASTRIC PAIN ORDERING PHYSICIAN: NINO VIDAL MD PROCEDURE: MRCP WWO - MRCP(ABDWWO)CHOLANGIOPANCREATO EXAM: MR Abdomen including MRCP with and without Intravenous Contrast CLINICAL HISTORY: Patient presents with epigastric pain. TECHNIQUE: Multisequence, multiplanar magnetic resonance images of the abdomen with intravenous contrast. CONTRAST: With intravenous contrast. COMPARISON: 03/02/2025. FINDINGS: LOWER THORAX: No pleural effusion. LIVER: Diffuse hepatic steatosis. No focal lesion. GALLBLADDER AND BILE DUCTS: Gallbladder surgically absent. Smooth tapering of the distal common bile duct with upstream dilated common bile duct measuring up to 1.0 cm and mild central intrahepatic biliary radical dilatation. No choledocholithiasis. PANCREAS: Unremarkable. No ductal dilation. SPLEEN: Unremarkable. ADRENALS: Unremarkable. KIDNEYS: 0.8 cm simple cortical cyst in the left renal lower pole. No hydronephrosis or mass. STOMACH AND BOWEL: No acute process demonstrated on limited evaluation. LYMPH NODES: No lymphadenopathy. VASCULATURE: No abdominal aortic aneurysm. IMPRESSION: Diffuse hepatic steatosis. Status post cholecystectomy. Smooth tapering of the distal common bile duct with upstream dilatation of the common bile duct measuring 1.0 cm and mild central intrahepatic biliary dilatation, may represent a benign stricture. Simple cortical cyst in the left kidney lower pole. Recommendation: Correlation with liver function tests and further evaluation with endoscopic ultrasound (EUS) or ERCP for distal common bile duct assessment. /[place] DICTATED BY: LICHA RUDOLPH Jr., MD DATE: 03/05/25 1558 ELECTRONICALLY SIGNED BY: LICHA RUDOLPH Jr., MD DATE: 03/05/25 1558 ASSESSMENT: Acute dehydration, POA, Elevated anion gap, POA Dilated CBD, mild, per CT on 03/02/2025 Coronavirus infection, POA Acute complicated cystitis, POA UTI on 02/28/2025 with positive urine culture for Gram-negative rods Diabetes mellitus with hyperglycemia, POA Diabetic ketoacidosis, POA Acute on chronic abdominal pain, POA, with frequent ED visits for abdominal pain & n/v Simple renal cortical cyst on left side, per CT on 03/02/2025 Thrombocytosis, POA Electrolyte derangement (hyponatremia, hypochloremia), POA History of DKA PLAN: Acute on chronic abdominal pain, suspected biliary stricture as per MRCP on 03/05/2025 Has a history of recurrent abdominal pain and recurrent N/V and dilated CBD. Gastroenterology consulted: MRCP: Dilation of CBD at 1 cm and intrahepatic biliary radical dilation concerning for possible stricture Patient will undergo endoscopic ultrasound this morning and ERCP if needed Continue normal saline at 150 mL/hour Continue IV Protonix 40 mg b.i.d. Keep clear fluids for now due to intractable nausea, vomiting, and abdominal pain. Elevated anion gap, suspected ongoing ketoacidosis Patient's sodium is 134, chloride is 99, bicarb is 22, albumin is 3.3 Corrected anion gap is 14.8 Ordered lactic acid and whole blood ketones Continue IV hydration and insulin regimen We will consider sodium bicarbonate 650 mg t.i.d. to address bicarb deficit Diabetes mellitus with hyperglycemia, POA Glucometer checks q.4 hours a.c. and HS with insulin regular sliding scale per protocol. Patient was started on 10 units of insulin Lantus Continue insulin sliding scale with regular insulin Patient's HbA1c is 10.4 and has a history of uncontrolled diabetes Endocrinology recommended increasing insulin Lantus to 15 mg and keep on insulin sliding scale with 6 unit regular insulin t.i.d. before meals Dr. Pepe also recommended increasing the home insulin NPH to 35 units in the a.m. and 15 units in the p.m. Acute complicated cystitis, POA Urinalysis positive for leukocyte esterase and pus cells Continue Rocephin 2 g IV daily. Pending culture sensitivity for UA collected on 02/28/2025 COVID-19 infection Patient tested positive for COVID-19 Patient has no labored breathing and well-maintained saturation Continue to monitor oxygen saturation P.r.n. acetaminophen if temperature greater than 100.4 F P.r.n. medications for: Pain management, fever, nausea, vomiting, hypertension, constipation. GI and DVT prophylaxis with SCDs Further plan/orders per hospitalization course. ATTESTATION BY PHYSICIAN I have seen and examined the patient. I reviewed the documentation, medical decision making, and treatment plan as noted by the resident provider above. I agree with the findings and plan of care. ROSANNA VALENZUELA MD, HARSHAVARDHA MD Mar 06, 2025 11:45
[2025-03-06 12:00] VITALS: BP 95/64; PULSE 74; RESP 16; TEMP 98.7
--- NOTE | 2025-03-06 14:30 | NUR ---
CALL PLACED TO ENDOSCOPY TO ASK ON ETA FOR ENDOSCOPIC ULTRASOUND. THE TECH STATED THAT THE PROCEDURE WAS CANCELLED BY DR. MARTÍNEZ DUE TO NO INDICATION OF PROCEDURE AND COVID POSTIVE. I MENTIONED THAT I WAS NOT MADE AWARE THIS PATIENT WAS NPO AND AWAITING TO BE TAKEN TO PROCEDURE.
[2025-03-06 16:00] VITALS: BP 146/88; PULSE 94; RESP 16; TEMP 98.8
[2025-03-06 20:00] VITALS: BP_SYST 129; BP_SYST 138; BP_DIAS 62; BP_DIAS 78; PULSE 86; PULSE 97; RESP 18; TEMP 98; TEMP 98.2; O2SAT 100
[2025-03-07] VITALS (8 sets, daily range): BP systolic 93–134; BP diastolic 58–79; PULSE 71–88; RESP 16–20; TEMP 98.1–99; O2SAT 98
--- NOTE | 2025-03-07 00:28 | NUR ---
arrival to unit patient alert and orientated x4. no pain or signs of distress. at bedside.vs WNL. call light within reach and bed at lowest position.
[2025-03-07 04:38] LABS: NUCLEATED RED BLOOD CELLS 0.0 % (0.0-0.19); PLATELET COUNT (AUTO) 395.0 K/uL (130-400); RED BLOOD CELL COUNT(AUTO) 4.14 MIL/uL (4.00-5.50); RED CELL DISTRIBUTION WIDTH 13.1 % (11.0-15.5); WHITE BLOOD COUNT (AUTO) 5.9 K/uL (4.8-10.8)
[2025-03-07 04:53] LABS: CREATININE 0.4 mg/dL (0.5-1.0); GLOMERULAR FILTR. RATE CALC 131.0 mL/min (>90); GLUCOSE,RANDOM 169.0 mg/dL (70-105); SODIUM SERUM 135.0 mmol/L (136-145); UREA NITROGEN, BLOOD 5.0 mg/dL (7-18)
[2025-03-07] MEDS: PoTASSium chl 10% ELIXIR 20MEQ 20 MEQ/15 ML UDCUP PO PRN (08:41)
--- NOTE | 2025-03-07 08:42 | NUR ---
Endoscopic US This nurse called endoscopy at 0645. Gave extension and asked if can get verification of cancellation. Endoscopic nurse stated she will tell nurse that spoke with reguarding this patient. At 0725, Timothy Jewell called back. As per Timothy Jewell from endoscopy, endoscopic US was cancelled by on 03/06.
--- NOTE | 2025-03-07 08:44 | PN ---
GASTROENTEROLOGY PROGRESS NOTE Date of Visit: Mar 07, 2025 Time of Visit: 08:33 Events / Notes: [Patient's EUS was canceled yesterday possibly due to COVID diagnosis. WBC 5.9, hemoglobin 11.5, platelets 395. Chemistries significant for potassium of 3.0,, BUN of 5, creatinine 0.4, glucose 169, calcium 8.0. Total bilirubin 0.5, direct bilirubin 0.1, AST 14, ALT 16, alkaline phosphatase fifty, total protein 5.9, albumin 2.9. ] Review of Systems: CONSTITUTIONAL: No malaise or change in sensation of wellbeing. ENMT: No rhinorrhea, otorrhea, sinus pain, ear ache. CARDIOVASCULAR: No angina, palpitations, orthopnea or paroxysmal dyspnea. RESPIRATORY: No SOB. GASTROINTESTINAL: No abdominal pain, nausea, vomiting, diarrhea, hematemesis, melena or change in the patient's habitual bowel movements consistency/number. GENITOURINARY: No dysuria, hematuria or change in bladder continence. MUSCULOSKELETAL: No new muscle pain or decrease in muscular strength. No new joint swelling, redness or tenderness. SKIN: No new rash. Physical Exam: GEN: Awake, alert, oriented in person, time and place, and in no acute distress. HEENT: No rhinorrhea. Oral pharyngeal mucosa is pink, moist and within normal limits. CHEST: Inspection, and palpation of the chest were unremarkable. Lung auscultation revealed normal breath sounds bilaterally. CARDIAC: PMI is within normal limits. Heart sounds are regular. ABD: Soft, tender to upper abdomen, and not distended. No peritoneal signs on palpation. No organomegaly. Normal bowel sounds. EXT: No cyanosis or clubbing. No edema. SKIN: Intact. No rashes. JOINTS: No evidence of synovitis or acute arthritis. NEURO: Alert and oriented to name, place and person. No focal motor deficits. Normal speech. Strength is normal.. Vital Signs (last 8hr) Date Time Temp Pulse Resp B/P (MAP) Pulse Ox O2 Delivery O2 Flow Rate FiO2 03/07/25 04:00 98.6 88 20 134/79 97 Room Air 03/07/25 02:03 Room Air* 0 21 03/07/25 00:48 99.0 Laboratory: [ ] Laboratory: Test 03/07/25 05:19 03/07/25 04:05 03/06/25 11:33 03/06/25 03:08 Range/Units Whole Blood Glucose 93 # 70-110 MG/DL White Blood Count 5.9 4.8-10.8 K/uL Red Blood Count 4.14 4.00-5.50 MIL/uL Hemoglobin 11.5 L 12.0-16.0 g/dL Hematocrit 34.5 L 36-48 % Mean Corpuscular Volume 83.3 79-99 fL Mean Corpuscular Hemoglobin 27.8 27.0-33.0 pg Mean Corpuscular Hemoglobin Concent 33.3 32.0-36.0 g/dL Red Cell Distribution Width 13.1 11.0-15.5 % Platelet Count 395 # 130-400 K/uL Mean Platelet Volume 10.9 H 7.5-10.5 fL Nucleated Red Blood Cells 0.0 0.0-0.19 % Sodium Level 135 L 136-145 mmol/L Potassium Level 3.0 *L 3.5-5.1 mmol/L Chloride Level 100 L 101-111 mmol/L Carbon Dioxide Level 20 L 21-32 mmol/L Blood Urea Nitrogen 5 L 7-18 mg/dL Creatinine 0.4 L 0.5-1.0 mg/dL Glomerular Filtration Rate Calc 131 >90 mL/min Random Glucose 169 H 70-105 mg/dL Whole Blood Ketones Quantitative 3.4 H 0.0-0.6 mmol/L Total Calcium 8.0 L 8.5-10.1 mg/dL Lactic Acid Level 1.2 0.8-2.5 mmol/L Total Bilirubin 0.7 0.2-1.0 mg/dL Direct Bilirubin 0.1 0.0-0.3 mg/dL Aspartate Amino Transf (AST/SGOT) 21 10-37 U/L Alanine Aminotransferase (ALT/SGPT) 15 12-78 U/L Alkaline Phosphatase 56 50-136 U/L Total Protein 7.0 6.0-8.3 g/dL Albumin 3.3 L 3.5-5.0 g/dL Test 03/05/25 15:22 Range/Units Immature Granulocyte % (Auto) 0.4 0-1 % Neutrophils (%) (Auto) 60.4 40.0-77.0 % Lymphocytes (%) (Auto) 29.5 21.0-51.0 % Monocytes (%) (Auto) 9.1 3.0-13.0 % Eosinophils (%) (Auto) 0.2 0.0-8.0 % Basophils (%) (Auto) 0.4 0.0-5.0 % Neutrophils # (Auto) 4.9 1.8-7.7 K/uL Lymphocytes # (Auto) 2.4 1.0-4.8 K/uL Monocytes # (Auto) 0.7 0.1-1.0 K/uL Eosinophils # (Auto) 0.02 0.00-0.70 K/uL Basophils # (Auto) 0.03 0.00-0.20 K/uL Absolute Immature Granulocyte (auto 0.03 0-1 K/uL Magnesium Level 2.00 1.80-2.40 mg/dL Current Medications Medications (Trade) Dose Ordered Sig/Neva Route PRN Reason Start Time Stop Time Status Last Admin Dose Admin Acetaminophen (TYLenol 325MG TAB) 650 mg Q6H PRN PO FEVER/MILD PAIN LEVEL 1-3 03/02/25 02:30 04/01/25 02:29 Acetaminophen (TYLenol 650MG SUPPOSITORY) 650 mg Q6H PRN RC FEVER / MILD PAIN 1-3 IF NPO 03/02/25 02:30 04/01/25 02:29 Albuterol Sulfate (Proventil 0.083% 2.5mg/3ml) 2.5MG Q6H PRN IH SHORTNESS OF BREATH 03/02/25 07:00 04/01/25 06:59 Ceftriaxone Sodium (Rocephin 2gm Inj) 2 gm Q24H IVPB 03/02/25 06:30 03/12/25 06:29 03/07/25 07:56 2 GM Dextrose (D50w) 50 ml AD PRN IV HYPOGLYCEMIA PROTOCOL 03/02/25 07:00 04/01/25 06:59 Dextrose/Sodium Chloride 1,000 ml @ 0 mls/hr AD IV 03/01/25 23:30 03/02/25 02:00 DC Docusate Sodium (COLace 100MG CAP) 100 mg BID PRN PO c 03/02/25 02:30 04/01/25 02:29 Famotidine (Pepcid 20mg Tab) 20 mg BID PO 03/02/25 09:00 03/04/25 10:30 DC 03/03/25 21:27 20 MG Glucagon (Glucagon 1mg Kit) 1 mg AD PRN IM HYPOGLYCEMIA PROTOCOL 03/02/25 07:00 04/01/25 06:59 Insulin Glargine (LANtus 100 UNITS/ML 10 ML VIAL) 10 units AM SQ 03/04/25 10:30 03/06/25 14:10 DC 03/05/25 09:39 10 UNITS Insulin Glargine (LANtus 100 UNITS/ML 10 ML VIAL) 15 units AM SQ 03/07/25 09:00 04/06/25 08:59 Insulin Human Regular (humuLIN R 100 UNIT/ML 3ML) 5 unit TIDAC SQ 03/05/25 11:30 03/06/25 05:52 DC 03/05/25 16:07 5 UNIT Insulin Human Regular (humuLIN R 100 UNIT/ML 3ML) 6 unit TIDAC SQ 03/06/25 07:30 04/05/25 07:29 03/06/25 18:33 6 UNIT Insulin Human Regular (humuLIN R 100 UNIT/ML 3ML) INSULIN SLIDING SCAL... ACHS SQ 03/05/25 11:30 04/04/25 11:29 03/06/25 21:36 4 UNIT Insulin Human Regular (humuLIN R 100 UNIT/ML 3ML) INSULIN SLIDING SCAL... Q4H SQ 03/02/25 02:30 03/02/25 15:21 DC 03/02/25 06:57 4 UNIT Insulin Human Regular (humuLIN R 100 UNIT/ML 3ML) INSULIN SLIDING SCAL... Q4H SQ 03/02/25 18:00 03/03/25 23:21 DC 03/03/25 21:09 10 UNIT Insulin Human Regular (humuLIN R 100 UNIT/ML 3ML) INSULIN SLIDING SCAL... Q4H4 SQ 03/04/25 00:00 03/05/25 07:40 DC 03/05/25 00:43 4 UNIT Insulin Human Regular (humuLIN R 100 UNIT/ML 3ML) INSULIN SLIDING SCAL... Q6H6 SQ 03/04/25 00:00 03/03/25 23:26 DC Insulin Human Regular 100 unit/ Sodium Chloride 101 ml @ 0 mls/hr PROTOCOL IV 03/01/25 23:30 03/02/25 02:00 DC Ipratropium Parker (AtrovENT UD) 0.5 mg Q6H PRN IH SHORTNESS OF BREATH 03/02/25 07:00 04/01/25 06:59 Labetalol HCl (TRANdate 20MG SYG) 10 mg Q2H PRN IV SBP GREATER THAN 160 03/02/25 02:30 04/01/25 02:29 Lactulose (Constulose 20gm/ 30ml Udcup) 20 gm Q6H PRN PO CONSTIPATION 03/02/25 02:30 04/01/25 02:29 Magnesium Sulfate 50 ml @ 0 mls/hr PROTOCOL IV 03/01/25 23:30 03/02/25 02:00 DC Magnesium Sulfate 50 ml @ 0 mls/hr PROTOCOL PRN IV MAGNESIUM PROTOCOL 03/02/25 07:00 04/01/25 06:59 03/05/25 09:28 25 MLS/HR Mannitol (Osmitrol 20% 250ml Bag) 34 gm AD IV 03/01/25 23:30 03/01/25 23:30 DC Morphine Sulfate (morPHINE 2MG SYG) 2 mg Q4H PRN IVP MODERATE PAIN (4-6) 03/02/25 02:30 03/09/25 02:29 03/07/25 05:58 2 MG Ondansetron HCl (zoFRAN 4MG INJ) 4 mg Q6H PRN IVP NAUSEA/VOMITING 03/02/25 02:30 03/03/25 21:46 DC 03/03/25 20:59 4 MG Ondansetron HCl (zoFRAN 4MG INJ) 4 mg Q6H PRN IVP NAUSEA/VOMITING 03/06/25 18:15 04/05/25 18:14 03/07/25 05:57 4 MG Ondansetron HCl (zoFRAN 4MG INJ) 4 mg Q6H PRN IVP NAUSEA/VOMITING 03/06/25 18:30 03/06/25 18:21 DC Pantoprazole Sodium (PROTonix 40MG INJ) 40 mg BID IVP 03/04/25 10:30 04/03/25 10:29 03/06/25 21:33 40 MG Potassium Chloride/Dextrose/ Sod Cl 1,000 ml @ 0 mls/hr AD IV 03/01/25 23:30 03/02/25 02:00 DC Potassium Chloride/Sodium Chloride 1,000 ml @ 0 mls/hr PROTOCOL IV 03/01/25 23:45 03/02/25 02:00 DC Potassium Chloride 100 ml @ 50 mls/hr AD PRN IV POTASSIUM PROTOCOL 03/02/25 07:00 04/01/25 06:59 03/07/25 05:21 50 MLS/HR Potassium Chloride (K-Dur/Klor-Con 20meq) 20 meq AD PRN PO POTASSIUM PROTOCOL 03/02/25 07:00 04/01/25 06:59 03/06/25 18:23 20 MEQ Potassium Chloride (KCl 10% Elixir 20meq/15ml) 20 meq AD PRN PO POTASSIUM PROTOCOL 03/02/25 07:00 04/01/25 06:59 Promethazine HCl (Phenergan) 25 mg Q6H PRN IM NAUSEA/VOMITING 03/03/25 22:00 04/02/25 21:59 03/06/25 21:33 25 MG Sodium Chloride 1,000 ml @ 75 mls/hr [id number] IV 03/02/25 02:10 04/01/25 02:09 03/06/25 21:38 75 MLS/HR Sodium Chloride 1,000 ml @ 200 mls/hr PROTOCOL IV 03/01/25 23:30 03/02/25 02:00 DC Temazepam (restORIL 15 MG CAP) 15 mg HS PRN PO INSOMNIA/SLEEP 03/02/25 02:30 04/01/25 02:29 Diagnostics / Radiology: [COPY/PASTE HERE IF NO REPORTS PLEASE DELETE SECTION] Assessment: Abdominal pain Nausea and vomiting Dilated CBD Covid ] Plan: Case discussed with Dr. Richards Advance diet as tolerated Will trend LFTs Continue with GI prophylaxis with protonix 40mg IV bid Patient can follow-up as outpatient once discharge and recovered from COVID infection for further evaluation of dilated CBD since there are no choledocholithiasis noted on MRCP. Please call with questions, concerns, and change in clinical status Thank you for allowing us to be part of this patient's care.] JULIETA CEDILLO NP Mar 07, 2025 08:44
[2025-03-07 09:03] LABS: ASPARTATE AMINOTRANSFERASE 14.0 U/L (10-37); TOTAL PROTEIN, SERUM 5.9 g/dL (6.0-8.3)
[2025-03-07 09:16] LABS: SARS-CoV-2, RNA, NAAT NEGATIVE SARS CoV-2 (NEGATIVE)
--- NOTE | 2025-03-07 14:28 | PN ---
[facility] PROGRESS NOTE Date of Service: Mar 07, 2025 Time of Service: 14:09 Ms. Flores is a 39-year-old female with a history of DM and surgical history of cholecystectomy who presented to [facility] ED for evaluatoin of ongoing epigastric pain, nausea, and vomiting. She was just seen yesterday and was diagnosed with mild dehydration and she was given prescriptions. However patient stated that her symptoms are persistent and hence she came in for evaluation she has a extensive history of ER visits as well as admissions. The patient denied any fever, chills, rigors, hematemesis or melena VS on arrival: Temperature 98.7, pulse 94, respirations 20, blood pressure 142/87, 97% on room air. ABGs: PH 7.424, pCO2 34, PO2 71.9, bicarbonate 21.6, O2 sats 94.3, base excess -2.1, Labs: Ketones 2.7, WBCs WNL. Platelets 548, MPV 10.9, Na 135, chloride 98, BUN 22, GFR 118, glucose 302. COVID positive. UA: + leuk EST (positive Gram-negative rods on 02/28/2025). CT abdomen and pelvis with contrast: No acute process in the abdomen or pelvis. Status post cholecystectomy. Mildly dilated CBD, which could be secondary to postcholecystectomy physiological changes. Further evaluation with MRCP may be done if there is a clinical suspicion of biliary obstruction. Simple renal corti shaina cyst on the left side. Compared to the prior study, there is no significant interval change. Per chart review: The patient was here for nausea and vomiting on 01/25/2025, serum ketones were 0.5, was discharged with diagnosis of mild dehydration, hyperglycemia, UTI, viral gastroenteritis. She also presented to [facility] on 01/25/2025 for abdominal pain and was discharged from ED. On 01/26/2025 she was admitted for DKA, then returned on 01/30/2025 for intractable nausea and vomiting and was admitted and was discharged home on 02/01/25. ED provider requested patient be admitted to the hospital with the diagnosis of DKA, volume depletion, UTI, intractable nausea and vomiting, elevated ketones body level. SUBJECTIVE: 03/03/2025: Patient was seen at the bedside 201. Her vitals are normal given pulse oximetry is 96. Labs revealed WBC 10.7 Hemoglobin 10.4 hematocrit 32.1 BUN 5 creatinine 0.3, HB A1c 10.4, average glucose 252, total calcium 7.8, phosphorus 1.60. Urinalysis revealed specific gravity 1.032, glucose 1000, ketones 150, occult blood small, leukocyte esterase 75. The patient attempted to take famotidine, but it resulted in vomiting. Currently the patient is on clear liquid diet. Pending gastroenterology consultation. 03/04/2025: Patient was seen in room 201. Patient had no acute events overnight and she is alert and oriented to time place and person. Patient says that her nausea has reduced since discharge however continues to have episodes of vomiting and she had one last night. Patient has sleep epigastric pain that is worse after eating. She is able to tolerate clear liquid diet. Cardiology recommended doing MRCP cholangiopancreaticography. 03/05/25 was seen earlier. MRCP was completed but results are still pending. As per GI she most likely we will need a ERCP if MRCP is positive. Primary nurse reports no events overnight. 03/06/2025: Patient was seen in the room to 201 and was evaluated at the bedside. Patient still reports mild nausea and epigastric pain. Patient denies vomiting, diarrhea, fever, chills, and shortness of breath. Patient underwent MRCP yesterday that showed mild dilation of CBD at 1 cm and intrahepatic biliary radical dilation concerning for stricture. Patient will undergo endoscopic ultrasound this morning for further evaluation and possible ERCP positive. Patient is able to tolerate clear liquid diet and we will advance her diet once her nausea subsides. 03/07/2025: Patient was seen in the room 417 was evaluated at the bedside. Patient says her pain is much better today. Patient denies vomiting, diarrhea, fever chills, and shortness of breath. Her endoscopic ultrasound was canceled as there was no choledocholithiasis on MRCP. GI advised the patient to follow up on outpatient basis. Patient is tolerating clear liquids and we will advance her diet to consistent carb today. Patient's morphine will be discontinued and started on a p.r.n. acetaminophen codeine. We will continue to monitor and consider for discharge tomorrow. REVIEW OF SYSTEMS CONSTITUTIONAL: Denies fevers, chills, or night sweats. No unintentional weight loss reported. NEUROLOGICAL: Denies headache, motor weakness, sensory deficit, vertigo/spinning sensation CARDIOVASCULAR: Denies any exertional angina, dyspnea on exertion, orthopnea, paroxysmal nocturnal dyspnea, palpitations PULMONARY: Denies any shortness of breath, cough, phlegm/sputum, hemoptysis, pleuritic chest pain. GASTROINTESTINAL: Denies any type of dysphagia to either liquids or solids. nausea and abdominal pain have improved. Denies early satiety, diarrhea, constipation GENITOURINARY: Denies frequency, urgency, nocturia, hematuria or incontinence DERMATOLOGIC: Denies rashes, itching, redness. PHYSICAL EXAM GENERAL APPEARANCE: The patient is awake, alert, and oriented, in no acute cardiopulmonary distress. NEUROLOGICAL: Cranial nerves II-XII grossly intact. Motor is 5/5 in bilateral upper and lower extremities proximal to distal. No sensory deficits. CHEST: Normal chest expansion. No Telemetry. LUNGS: Absence of any rales, rhonchi or any wheezing. CARDIOVASCULAR: Regular. S1 and S2 normal. No appreciable rubs, murmurs or gallops. ABDOMEN: Soft, tender to palpation in the epigastrium, improved and nondistended. There is no rebound, voluntary guarding, or rigidity. : Deferred. No Nuñez. EXTREMITIES: Non-edematous and not cyanotic. No clubbing. Good capillary refill. SKIN: No skin breakdown. Vital Signs (last 8hr) Date Time Temp Pulse Resp B/P (MAP) Pulse Ox O2 Delivery O2 Flow Rate FiO2 03/07/25 12:00 98.2 74 16 105/65 100 Room Air 03/07/25 08:00 98.1 71 18 100/68 98 Room Air LABS: Laboratory: Test 03/07/25 11:48 03/07/25 08:50 03/07/25 04:05 03/06/25 11:33 Range/Units Whole Blood Glucose 184 #H 70-110 MG/DL Bedside Glucose Comment Notified Nurse SARS-CoV-2, RNA, NAAT NEGATIVE SARS CoV-2 NEGATIVE White Blood Count 5.9 4.8-10.8 K/uL Red Blood Count 4.14 4.00-5.50 MIL/uL Hemoglobin 11.5 L 12.0-16.0 g/dL Hematocrit 34.5 L 36-48 % Mean Corpuscular Volume 83.3 79-99 fL Mean Corpuscular Hemoglobin 27.8 27.0-33.0 pg Mean Corpuscular Hemoglobin Concent 33.3 32.0-36.0 g/dL Red Cell Distribution Width 13.1 11.0-15.5 % Platelet Count 395 # 130-400 K/uL Mean Platelet Volume 10.9 H 7.5-10.5 fL Nucleated Red Blood Cells 0.0 0.0-0.19 % Sodium Level 135 L 136-145 mmol/L Potassium Level 3.0 *L 3.5-5.1 mmol/L Chloride Level 100 L 101-111 mmol/L Carbon Dioxide Level 20 L 21-32 mmol/L Blood Urea Nitrogen 5 L 7-18 mg/dL Creatinine 0.4 L 0.5-1.0 mg/dL Glomerular Filtration Rate Calc 131 >90 mL/min Random Glucose 169 H 70-105 mg/dL Whole Blood Ketones Quantitative 3.4 H 0.0-0.6 mmol/L Total Calcium 8.0 L 8.5-10.1 mg/dL Total Bilirubin 0.5 0.2-1.0 mg/dL Direct Bilirubin 0.1 0.0-0.3 mg/dL Aspartate Amino Transf (AST/SGOT) 14 10-37 U/L Alanine Aminotransferase (ALT/SGPT) 16 12-78 U/L Alkaline Phosphatase 50 50-136 U/L Total Protein 5.9 L 6.0-8.3 g/dL Albumin 2.9 L 3.5-5.0 g/dL Lactic Acid Level 1.2 0.8-2.5 mmol/L Test 03/05/25 15:22 Range/Units Immature Granulocyte % (Auto) 0.4 0-1 % Neutrophils (%) (Auto) 60.4 40.0-77.0 % Lymphocytes (%) (Auto) 29.5 21.0-51.0 % Monocytes (%) (Auto) 9.1 3.0-13.0 % Eosinophils (%) (Auto) 0.2 0.0-8.0 % Basophils (%) (Auto) 0.4 0.0-5.0 % Neutrophils # (Auto) 4.9 1.8-7.7 K/uL Lymphocytes # (Auto) 2.4 1.0-4.8 K/uL Monocytes # (Auto) 0.7 0.1-1.0 K/uL Eosinophils # (Auto) 0.02 0.00-0.70 K/uL Basophils # (Auto) 0.03 0.00-0.20 K/uL Absolute Immature Granulocyte (auto 0.03 0-1 K/uL Magnesium Level 2.00 1.80-2.40 mg/dL Current Medications Medications (Trade) Dose Ordered Sig/Neva Route PRN Reason Start Time Stop Time Status Last Admin Dose Admin Acetaminophen (TYLenol 325MG TAB) 650 mg Q6H PRN PO FEVER/MILD PAIN LEVEL 1-3 03/02/25 02:30 04/01/25 02:29 03/07/25 12:40 650 MG Acetaminophen (TYLenol 650MG SUPPOSITORY) 650 mg Q6H PRN RC FEVER / MILD PAIN 1-3 IF NPO 03/02/25 02:30 04/01/25 02:29 Acetaminophen/ Codeine Phosphate (TYLenol-coDEINE TAB) 1 tab Q6H PRN PO MODERATE PAIN (4-6) 03/07/25 13:30 04/06/25 13:29 Albuterol Sulfate (Proventil 0.083% 2.5mg/3ml) 2.5MG Q6H PRN IH SHORTNESS OF BREATH 03/02/25 07:00 04/01/25 06:59 Ceftriaxone Sodium (Rocephin 2gm Inj) 2 gm Q24H IVPB 03/02/25 06:30 03/12/25 06:29 03/07/25 07:56 2 GM Dextrose (D50w) 50 ml AD PRN IV HYPOGLYCEMIA PROTOCOL 03/02/25 07:00 04/01/25 06:59 Dextrose/Sodium Chloride 1,000 ml @ 0 mls/hr AD IV 03/01/25 23:30 03/02/25 02:00 DC Docusate Sodium (COLace 100MG CAP) 100 mg BID PRN PO c 03/02/25 02:30 04/01/25 02:29 Famotidine (Pepcid 20mg Tab) 20 mg BID PO 03/02/25 09:00 03/04/25 10:30 DC 03/03/25 21:27 20 MG Glucagon (Glucagon 1mg Kit) 1 mg AD PRN IM HYPOGLYCEMIA PROTOCOL 03/02/25 07:00 04/01/25 06:59 Insulin Glargine (LANtus 100 UNITS/ML 10 ML VIAL) 10 units AM SQ 03/04/25 10:30 03/06/25 14:10 DC 03/05/25 09:39 10 UNITS Insulin Glargine (LANtus 100 UNITS/ML 10 ML VIAL) 15 units AM SQ 03/07/25 09:00 04/06/25 08:59 Insulin Human Regular (humuLIN R 100 UNIT/ML 3ML) 5 unit TIDAC SQ 03/05/25 11:30 03/06/25 05:52 DC 03/05/25 16:07 5 UNIT Insulin Human Regular (humuLIN R 100 UNIT/ML 3ML) 6 unit TIDAC SQ 03/06/25 07:30 04/05/25 07:29 03/06/25 18:33 6 UNIT Insulin Human Regular (humuLIN R 100 UNIT/ML 3ML) INSULIN SLIDING SCAL... ACHS SQ 03/05/25 11:30 04/04/25 11:29 03/07/25 12:39 2 UNIT Insulin Human Regular (humuLIN R 100 UNIT/ML 3ML) INSULIN SLIDING SCAL... Q4H SQ 03/02/25 02:30 03/02/25 15:21 DC 03/02/25 06:57 4 UNIT Insulin Human Regular (humuLIN R 100 UNIT/ML 3ML) INSULIN SLIDING SCAL... Q4H SQ 03/02/25 18:00 03/03/25 23:21 DC 03/03/25 21:09 10 UNIT Insulin Human Regular (humuLIN R 100 UNIT/ML 3ML) INSULIN SLIDING SCAL... Q4H4 SQ 03/04/25 00:00 03/05/25 07:40 DC 03/05/25 00:43 4 UNIT Insulin Human Regular (humuLIN R 100 UNIT/ML 3ML) INSULIN SLIDING SCAL... Q6H6 SQ 03/04/25 00:00 03/03/25 23:26 DC Insulin Human Regular 100 unit/ Sodium Chloride 101 ml @ 0 mls/hr PROTOCOL IV 03/01/25 23:30 03/02/25 02:00 DC Ipratropium [place] (AtrovENT UD) 0.5 mg Q6H PRN IH SHORTNESS OF BREATH 03/02/25 07:00 04/01/25 06:59 Labetalol HCl (TRANdate 20MG SYG) 10 mg Q2H PRN IV SBP GREATER THAN 160 03/02/25 02:30 04/01/25 02:29 Lactulose (Constulose 20gm/ 30ml Udcup) 20 gm Q6H PRN PO CONSTIPATION 03/02/25 02:30 04/01/25 02:29 Magnesium Sulfate 50 ml @ 0 mls/hr PROTOCOL IV 03/01/25 23:30 03/02/25 02:00 DC Magnesium Sulfate 50 ml @ 0 mls/hr PROTOCOL PRN IV MAGNESIUM PROTOCOL 03/02/25 07:00 04/01/25 06:59 03/05/25 09:28 25 MLS/HR Mannitol (Osmitrol 20% 250ml Bag) 34 gm AD IV 03/01/25 23:30 03/01/25 23:30 DC Morphine Sulfate (morPHINE 2MG SYG) 2 mg Q4H PRN IVP MODERATE PAIN (4-6) 03/02/25 02:30 03/07/25 10:52 DC 03/07/25 05:58 2 MG Ondansetron HCl (zoFRAN 4MG INJ) 4 mg Q6H PRN IVP NAUSEA/VOMITING 03/02/25 02:30 03/03/25 21:46 DC 03/03/25 20:59 4 MG Ondansetron HCl (zoFRAN 4MG INJ) 4 mg Q6H PRN IVP NAUSEA/VOMITING 03/06/25 18:15 04/05/25 18:14 03/07/25 05:57 4 MG Ondansetron HCl (zoFRAN 4MG INJ) 4 mg Q6H PRN IVP NAUSEA/VOMITING 03/06/25 18:30 03/06/25 18:21 DC Pantoprazole Sodium (PROTonix 40MG INJ) 40 mg BID IVP 03/04/25 10:30 04/03/25 10:29 03/07/25 08:41 40 MG Potassium Chloride/Dextrose/ Sod Cl 1,000 ml @ 0 mls/hr AD IV 03/01/25 23:30 03/02/25 02:00 DC Potassium Chloride/Sodium Chloride 1,000 ml @ 0 mls/hr PROTOCOL IV 03/01/25 23:45 03/02/25 02:00 DC Potassium Chloride 100 ml @ 50 mls/hr AD PRN IV POTASSIUM PROTOCOL 03/02/25 07:00 04/01/25 06:59 03/07/25 05:21 50 MLS/HR Potassium Chloride (K-Dur/Klor-Con 20meq) 20 meq AD PRN PO POTASSIUM PROTOCOL 03/02/25 07:00 04/01/25 06:59 03/06/25 18:23 20 MEQ Potassium Chloride (KCl 10% Elixir 20meq/15ml) 20 meq AD PRN PO POTASSIUM PROTOCOL 03/02/25 07:00 04/01/25 06:59 03/07/25 12:38 20 MEQ Promethazine HCl (Phenergan) 25 mg Q6H PRN IM NAUSEA/VOMITING 03/03/25 22:00 04/02/25 21:59 03/06/25 21:33 25 MG Sodium Chloride 1,000 ml @ 75 mls/hr [id number] IV 03/02/25 02:10 04/01/25 02:09 03/07/25 12:40 75 MLS/HR Sodium Chloride 1,000 ml @ 200 mls/hr PROTOCOL IV 03/01/25 23:30 03/02/25 02:00 DC Temazepam (restORIL 15 MG CAP) 15 mg HS PRN PO INSOMNIA/SLEEP 03/02/25 02:30 04/01/25 02:29 DIAGNOSTICS / RADIOLOGY: [ ] ASSESSMENT: Acute dehydration, POA, Starvation ketosis, POA Dilated CBD, mild, per CT on 03/02/2025 Early DKA, POA Coronavirus infection, POA Acute complicated cystitis, POA UTI on 02/28/2025 with positive urine culture for Gram-negative rods Diabetes mellitus with hyperglycemia, POA Diabetic ketoacidosis, POA Acute on chronic abdominal pain, POA, with frequent ED visits for abdominal pain & n/v Simple renal cortical cyst on left side, per CT on 03/02/2025 Thrombocytosis, POA Electrolyte derangement (hyponatremia, hypochloremia), POA History of DKA PLAN: Acute on chronic abdominal pain, suspected biliary stricture as per MRCP on 03/05/2025 Has a history of recurrent abdominal pain and recurrent N/V and dilated CBD. Gastroenterology consulted: MRCP: Dilation of CBD at 1 cm and intrahepatic biliary radical dilation concerning for possible stricture Patient's EUS was cancelled ans there was no choledocholithiasis and was advised to follow up on outpatient basis Continue normal saline at 150 mL/hour Continue IV Protonix 40 mg b.i.d. Will advance diet to consistent carbohydrates Starvation ketoacidosis Patient's sodium is 135, chloride is 100, bicarb is 20, albumin is 3.3 Lactic acid was normal and whole blood ketones were 3.4 Continue IV hydration D5 NS at 75 mL/hour and insulin regimen Started consistent carbohydrate diet Diabetes mellitus with hyperglycemia, POA Glucometer checks q.4 hours a.c. and HS with insulin regular sliding scale per protocol. Continue insulin sliding scale with regular insulin Patient's HbA1c is 10.4 and has a history of uncontrolled diabetes Endocrinology recommended increasing insulin Lantus to 15 mg and keep on insulin sliding scale with 6 unit regular insulin t.i.d. before meals Dr. Pepe also recommended increasing the home insulin NPH to 35 units in the a.m. and 15 units in the p.m. Diabetic ketoacidosis,POA Patient blood glucose was 270 and blood ketones of 2.7 on admission Anion gap was elevated on admission Currently on Insulin Lantus 15 units and Regular insulin sliding scale tid before meals Continue monitoring Acute complicated cystitis, POA Urinalysis positive for leukocyte esterase and pus cells Continue Rocephin 2 g IV daily. Pending culture sensitivity for UA collected on 02/28/2025 COVID-19 infection Patient tested positive for COVID-19 Patient has no labored breathing and well-maintained saturation Continue to monitor oxygen saturation P.r.n. acetaminophen if temperature greater than 100.4 F P.r.n. medications for: Pain management, fever, nausea, vomiting, hypertension, constipation. GI and DVT prophylaxis with SCDs Further plan/orders per hospitalization course. ATTESTATION BY PHYSICIAN I have seen and examined the patient. I reviewed the documentation, medical decision making, and treatment plan as noted by the resident provider above. I agree with the findings and plan of care. Sukhi Guillaume MD, HARSHAVARDHA MD Mar 07, 2025 14:28
[2025-03-07] MEDS: DEXTROSE 5 % AND 0.9 % NACL 1,000 ML IV ONE (16:39)
[2025-03-07] MEDS: LACTULOSE 20 GM/30 ML UDCUP PO PRN (23:51)
[2025-03-08] VITALS: BP 101/53; PULSE 71; RESP 17; TEMP 98.4
[2025-03-08 04:00] VITALS: BP 100/51; PULSE 68; RESP 18; TEMP 98.2
[2025-03-08 05:33] LABS: NUCLEATED RED BLOOD CELLS 0.0 % (0.0-0.19); PLATELET COUNT (AUTO) 306.0 K/uL (130-400); RED BLOOD CELL COUNT(AUTO) 3.68 MIL/uL (4.00-5.50); RED CELL DISTRIBUTION WIDTH 13.3 % (11.0-15.5); WHITE BLOOD COUNT (AUTO) 5.3 K/uL (4.8-10.8)
[2025-03-08 05:58] LABS: CREATININE 0.2 mg/dL (0.5-1.0); GLOMERULAR FILTR. RATE CALC 154.0 mL/min (>90); GLUCOSE,RANDOM 265.0 mg/dL (70-105); SODIUM SERUM 138.0 mmol/L (136-145); UREA NITROGEN, BLOOD 8.0 mg/dL (7-18)
[2025-03-08 07:47] VITALS: O2SAT 100
[2025-03-08 08:00] VITALS: BP 111/65; PULSE 72; RESP 18; TEMP 98.5
[2025-03-08 11:40] VITALS: PULSE 76; RESP 16; TEMP 98.7
--- NOTE | 2025-03-08 13:52 | DS ---
Discharge Summary Hospital Course Summary: Ms. Pitt is a 39-year-old female with a past medical history of DM and surgical history of cholecystectomy in 2007, presented to [facility] for evaluation of ongoing epigastric pain, nausea, and vomiting. She had a recent admission at [facility] for management of diabetic ketoacidosis. Patient's symptoms started few days ago with intractable nausea, vomiting, and epigastric pain. Patient was unable to keep down both liquids and solid foods. Patient complained of epigastric pain after eating food and describes it as dull, aching sensation. The patient denied any fever, chills, rigors, hematemesis or melena. Patient denies eating or drinking anything out of the ordinary in the last few days. The patient had several admissions to the [facility] for nausea and vomiting on 01/25/2025, serum ketones were 0.5, was discharged with diagnosis of mild dehydration, hyperglycemia, UTI, viral gastroenteritis. She also presented to [facility] on 01/25/2025 for abdominal pain and was discharged from ED. On 01/26/2025 she was admitted for DKA, then returned on 01/30/2025 for intractable nausea and vomiting and was admitted and was discharged home on 02/01/25. On arrival to the ED patient had temperature 98.7, pulse 94, respirations 20, blood pressure 142/87, 97% on room air. ABGs: PH 7.424, pCO2 34, PO2 71.9, bicarbonate 21.6, O2 sats 94.3, base excess -2.1, Labs: Ketones 2.7, WBCs WNL. Platelets 548, MPV 10.9, Na 135, chloride 98, BUN 22, GFR 118, glucose 302. COVID positive. UA: + leuk EST (positive Gram-negative rods on 02/28/2025). CT abdomen and pelvis with contrast: No acute process in the abdomen or pelvis. Status post cholecystectomy. Mildly dilated CBD, which could be secondary to postcholecystectomy physiological changes. Patient be admitted to the hospital with the diagnosis of DKA, volume depletion, UTI, intractable nausea and vomiting, elevated ketones body level. On admission patient has been started on DKA protocol with aggressive fluid resuscitation with normal saline at 150 mL/hour and insulin infusion. Her UTI was treated with Rocephin 2 g IV for 7 days. Gastroenterology consult was placed for evaluation of dilation of CBD and persistent epigastric pain. A MRCP was conducted which showed dilation of CBD at 1 cm and a planned endoscopic ultrasound was planned the next day. However, later the procedure was canceled and was advised to follow up on an outpatient basis. During this time the patient was kept NPO which have led to increase in her anion gap with increased blood ketones. Patient was started on D5 NS and transitioned to subcutaneous insulin with Lantus 15 units and sliding scale insulin. Patient's ketones dropped and her blood sugars have been stable. Patient nausea has improved and was able to tolerate solid foods. Patient will be discharged home and advised to take insulin NPH at 35 units in the morning and 15 units in the night as per Dr. Pepe recommendations. Patient is advised to follow up with her PCP in 2-[address] Pepe in [address] Farias in 2 weeks. Patient extensively educated on importance of monitoring her blood glucose and need to add her to the insulin regimen to prevent recurrent admissions for DKA. Patient was advised on for red flag symptoms like worsening nausea, vomiting, diarrhea, abdominal pain, fever, chills and return to ED as needed. Edm Operator(s): Dr. Vidal, Director Traffic And Planning Dr. Pepe, Ruling Machine Feeder Patient underwent MRCP with Dr. Vidal that showed dilation of common bile duct at 1 cm and no attributes of choledocholithiasis. Patient was advised to follow up outpatient for evaluation of dilated CBD. Patient to continue famotidine 20 mg twice daily. Endocrinology was consulted for her recurrent admissions for DKA and uncontrolled blood sugars. Patient's home NPH insulin was increased by 5 units. Patient was advised to take 35 units in the morning and 15 units in the night. Procedure(s): PATIENT: RAEANN PITT MR#: [id number] : 1985 SEX: F AGE: 39 LOCATION: 2AH ORDER 4 STATUS: ADM IN REPORT#: [id number] SERVICE 5 REASON: worsening abd pain ORDERING PHYSICIAN: MATILDA AMEZQUITA PROCEDURE: ABD PEL W - CT ABDOMEN/PELVIS W/CONTRAST EXAM: CT Abdomen and Pelvis with IV contrast CLINICAL HISTORY: Worsening abdominal pain. TECHNIQUE: Postcontrast thin collimated axial CT images of the abdomen and pelvis were obtained with sagittal and coronal reformatted images also submitted. CT scan is done according to ALARA (As Low As Reasonably Achievable). COMPARISON: CT abdomen and pelvis dated 01/26/2025. FINDINGS: The included lungs are clear. Mild fatty liver. Status post cholecystectomy. Mildly dilated CBD measures up to 1 cm in diameter. No focal abnormality within the pancreas, spleen, or adrenals. 0.8 cm nonenhancing Bosniak class I cyst at the left renal lower pole. Grossly unremarkable urinary bladder. The uterus and ovaries are within normal limits. No obvious bowel wall thickening, dilatation, or obstruction. Unremarkable appendix. Grossly unremarkable abdominal vessels. No pathological lymphadenopathy in the abdomen or pelvis. No ascites or pneumoperitoneum. No acute bony abnormality. Degenerative osseous changes. 0.7 cm sclerotic focus in the left proximal femur, likely bony island. IMPRESSIONS: No acute process in the abdomen or pelvis. Status post cholecystectomy. Mildly dilated CBD, which could be secondary to postcholecystectomy physiological changes. Further evaluation with MRCP may be done if there is a clinical suspicion of biliary obstruction. Simple renal cortical cyst on the left side. Compared to the prior study, there is no significant interval change. /[place] DICTATED BY: LICHA RUDOLPH Jr., MD DATE: 03/02/25512 ELECTRONICALLY SIGNED BY: LICHA RUDOLPH Jr., MD DATE: 03/02/25512 PATIENT: RAEANN PITT MR#: [id number] : 1985 SEX: F AGE: 39 LOCATION: 2AH ORDER 26 STATUS: ADM IN REPORT#: [id number] SERVICE 24 REASON: hypoxemia ORDERING PHYSICIAN: MATILDA AMEZQUITA PROCEDURE: CXR1VW - CHEST 1VW EXAM: CR Chest, 1 View. CLINICAL HISTORY: hypoxemia COMPARISON: None provided. FINDINGS: LUNGS: There is no mass, infiltrate, or acute pulmonary abnormality. PLEURAL SPACES: No evidence of pleural effusion or pneumothorax. MEDIASTINUM: Cardiac size and mediastinal contours within normal limits. BONES: No acute osseous abnormality. IMPRESSION: No acute cardiopulmonary pathology is evident. /[place] DICTATED BY: KARINA LEE MD DATE: 03/02/252052 ELECTRONICALLY SIGNED BY: KARINA LEE MD DATE: 03/02/252052 PATIENT: RAEANN PITT MR#: [id number] : 1985 SEX: F AGE: 39 LOCATION: 2AH ORDER 1040 STATUS: ADM IN REPORT#: [id number] SERVICE 1037 REASON: EPIGASTRIC PAIN ORDERING PHYSICIAN: NINO VIDAL MD PROCEDURE: MRCP WWO - MRCP(ABDWWO)CHOLANGIOPANCREATO EXAM: MR Abdomen including MRCP with and without Intravenous Contrast CLINICAL HISTORY: Patient presents with epigastric pain. TECHNIQUE: Multisequence, multiplanar magnetic resonance images of the abdomen with intravenous contrast. CONTRAST: With intravenous contrast. COMPARISON: 03/02/2025. FINDINGS: LOWER THORAX: No pleural effusion. LIVER: Diffuse hepatic steatosis. No focal lesion. GALLBLADDER AND BILE DUCTS: Gallbladder surgically absent. Smooth tapering of the distal common bile duct with upstream dilated common bile duct measuring up to 1.0 cm and mild central intrahepatic biliary radical dilatation. No choledocholithiasis. PANCREAS: Unremarkable. No ductal dilation. SPLEEN: Unremarkable. ADRENALS: Unremarkable. KIDNEYS: 0.8 cm simple cortical cyst in the left renal lower pole. No hydronephrosis or mass. STOMACH AND BOWEL: No acute process demonstrated on limited evaluation. LYMPH NODES: No lymphadenopathy. VASCULATURE: No abdominal aortic aneurysm. IMPRESSION: Diffuse hepatic steatosis. Status post cholecystectomy. Smooth tapering of the distal common bile duct with upstream dilatation of the common bile duct measuring 1.0 cm and mild central intrahepatic biliary dilatation, may represent a benign stricture. Simple cortical cyst in the left kidney lower pole. Recommendation: Correlation with liver function tests and further evaluation with endoscopic ultrasound (EUS) or ERCP for distal common bile duct assessment. /[place] DICTATED BY: LICHA RUDOLPH Jr., MD DATE: 03/05/251557 ELECTRONICALLY SIGNED BY: LICHA RUDOLPH Jr., MD DATE: 03/05/251557 Assessment/Plan: ASSESSMENT: Acute dehydration, resolved Starvation ketosis, resolved Dilated CBD, mild, per CT on 03/02/2025 Early DKA, resolved Coronavirus infection, resolved Acute complicated cystitis, 02/28/2025 with positive urine culture for Gram- negative rods, resolved Diabetes mellitus with hyperglycemia, Acute on chronic abdominal pain, with frequent ED visits for abdominal pain & n/v Simple renal cortical cyst on left side, per CT on 03/02/2025 Thrombocytosis, resolved Electrolyte derangement (hyponatremia, hypochloremia), resolved History of DKA Discharge Instructions: ADMISSION DATE : 03/02/25 DISCHARGE DATE: 03/08/25 DISPOSITION : Home CONDITION : Stable STOCKFEED MILLER(S) : Dr. Vidal, Director Traffic And Planning and Dr. Pepe, Ruling Machine Feeder FOLLOW UP APPOINTMENT(S) : f/u with PCP in one 2-3 days, f/u with Susie in two weeks, and Dr. Pepe in 1 week. PROCEDURES: MRCP IMAGING (S) : report attached to summary MICROBIOLOGY : report attached to summary ACTIVITY : ad jose HOME MEDICATIONS : Continued Home Medications: Active Scripts Famotidine (Pepcid) 20 Mg Tablet, 1 TAB PO BID for 14 Days, #28 TAB 0 Refills Prov:NATALI THOMAS 02/28/25 Ondansetron (Ondansetron Odt) 4 Mg Tab.rapdis, 4 MG PO BID for 7 Days, #14 TAB Prov:NATALI THOMAS 02/28/25 Nitrofurantoin/Nitrofuran Mac (Macrobid) 100 Mg Cap, 1 CAP PO BID for 7 Days, #14 CAP 0 Refills Prov:NATALI THOMAS 02/28/25 Reported Medications Insulin NPH Hum/Reg Insulin Hm (Novolin 70-30 Flexpen) 100 Unit/Ml (70-30) Insuln.pen, 10 UNIT SQ HS, SYRINGE 03/01/25 Insulin NPH Hum/Reg Insulin Hm (Novolin 70-30 Flexpen) 100 Unit/Ml (70-30) Insuln.pen, 20 UNIT SQ DAILY, SYRINGE 03/01/25 Continued Medications: Famotidine (Pepcid) 20 Mg Tablet 1 TAB PO BID for 14 Days, #28 TAB 0 Refills Insulin NPH Hum/Reg Insulin Hm (Novolin 70-30 Flexpen) 100 Unit/Ml (70-30) Insuln.pen 20 UNIT SQ DAILY, SYRINGE Insulin NPH Hum/Reg Insulin Hm (Novolin 70-30 Flexpen) 100 Unit/Ml (70-30) Insuln.pen 10 UNIT SQ HS, SYRINGE Ondansetron (Ondansetron Odt) 4 Mg Tab.rapdis 4 MG PO BID for 7 Days, #14 TAB Discontinued Medications: Nitrofurantoin/Nitrofuran Mac (Macrobid) 100 Mg Cap 1 CAP PO BID for 7 Days, #14 CAP 0 Refills Time spent arranging discharge: 1-30 minutes ATTESTATION BY PHYSICIAN I have seen and examined the patient. I reviewed the documentation, medical decision making, and treatment plan as noted by the resident provider above. I agree with the findings and plan of care. Sukhi Guillaume MD, HARSHAVARDHA MD Mar 08, 2025 13:52
[2025-03-08 16:00] VITALS: BP 94/56; PULSE 49; RESP 16; TEMP 98.2
--- NOTE | 2025-03-08 18:05 | NUR ---
HEP LOCK REMOVED AND PATIENT DISCHARGED HOME WITH BELONGINGS AND COPY OF DISCHARGE SUMMARY
== END 2025-03-08 18:05 | disposition home or self-care (01) | DRG 637 ==
LOC: EDH 22:01 → EDHIP 22:02 → 2AH 03-02 04:13 → 4CH 03-07 00:01
PROVIDERS: ADMIT Hospitalist; ATTEND Hospitalist
DX: E11.10 Type 2 diabetes mellitus with ketoacidosis without coma (principal); U07.1 COVID-19; N30.00 Acute cystitis without hematuria; E87.1 Hypo-osmolality and hyponatremia; E86.0 Dehydration; D75.839 Thrombocytosis, unspecified; E87.8 Other disorders of electrolyte and fluid balance, not elsewhere classified; G89.29 Other chronic pain; K83.8 Other specified diseases of biliary tract; R09.02 Hypoxemia; N28.1 Cyst of kidney, acquired; K76.0 Fatty (change of) liver, not elsewhere classified; K59.00 Constipation, unspecified; Z79.4 Long term (current) use of insulin; Z90.49 Acquired absence of other specified parts of digestive tract
CPT/HCPCS: 36415; 36600; 71045; 74177; 74183; 80048; 80053; 80061; 80076; 80305; 81001; 82010; 82306; 82435; 82607; 82803; 82947; 82948; 83036; 83605; 83690; 83735; 84100; 84132; 84295; 84443; 84703; 85018; 85025; 85027; 85610; 87635; 87804; 87880; 99285; G0378; J0696; J1171; J1815; J2270; J2405; J2470; J2550; J3475; J3480; J7030; J7042; Q9967; A9575

== ENCOUNTER 2025-03-21 15:36 | Inpatient (IN) | payer SELFPAY ==
[~2025-03-21] VITALS: Ht 165.1 cm; Wt 60.7 kg
[~2025-03-21 15:36] MED LIST changes: +INSU100I35 SQ; -MACR100 PO
[2025-03-21 16:17] LABS: IMMATURE GRANULOCYTE ABSOLUTE 0.03 K/uL (0-1); NUCLEATED RED BLOOD CELLS 0.0 % (0.0-0.19); PLATELET COUNT (AUTO) 404 K/uL (130-400); RED BLOOD CELL COUNT(AUTO) 4.44 MIL/uL (4.00-5.50); RED CELL DISTRIBUTION WIDTH 13.7 % (11.0-15.5); WHITE BLOOD COUNT (AUTO) 8.2 K/uL (4.8-10.8)
[2025-03-21 16:30] LABS: ADD UA MICROSCOPIC YES; APPEARANCE,URINE CLEAR (CLEAR); GLUCOSE, URINE (UA) >=1000 mg/dL (NEGATIVE); LEUKOCYTE ESTERASE ,URINE NEGATIVE Leu/uL (NEGATIVE); NITRATE,URINE NEGATIVE (NEGATIVE); OCCULT BLOOD,URINE NEGATIVE (NEGATIVE)
[2025-03-21 16:31] LABS: SQUAMOUS EPITHELIAL CELL,UR FEW /HPF (0-2)
[2025-03-21 16:33] LABS: CREATININE 0.4 mg/dL (0.5-1.0); GLOMERULAR FILTR. RATE CALC 131.0 mL/min (>90); GLUCOSE,RANDOM 267.0 mg/dL (70-105); SODIUM SERUM 137.0 mmol/L (136-145); UREA NITROGEN, BLOOD 10.0 mg/dL (7-18)
[2025-03-21 16:38] LABS: ASPARTATE AMINOTRANSFERASE 12.0 U/L (10-37); TOTAL PROTEIN, SERUM 7.8 g/dL (6.0-8.3)
[2025-03-21] MEDS: 0.9%NACL 1000ML 1,000 ML IV SCH ×2 (17:02→17:57)
[2025-03-21] MEDS: FAMOTIDINE 20MG VIAL IV SCH (17:02)
[2025-03-21 17:06] LABS: ABG BASE EXCESS -4.4 mmol/L (-2.0-3.0); ABG HCO3 20.0 mmol/L (21.0-28.0); ABG OXYGEN SATURATION 63.7 % (94.0-98.0); ABG PCO2 35 mmHg (32-45); ABG PH 7.373 (7.350-7.450); DEVICE COMMENT RR; PO2, ARTERIAL BG < 45.0 mmHg (83.0-108.0); TEMPERATURE, CELSIUS BG 37.0 CELSIUS (35.5-37.0); VENT MODE, BG RA (ROOM AIR)
--- NOTE | 2025-03-21 19:47 | ERN ---
General Chief Complaint: Nausea,Vomiting,Diarrhea Stated Complaint: NAUSEA/VOMITING Time Seen by MD: 15:39 Time Seen by Midlevel: 15:39 Source: patient History of Present Illness Initial Comments 39-year-old female with a past medical history of type 2 diabetes on insulin presenting to the ER with vomiting. Patient was seen in our emergency department recently was admitted for DKA. Patient states her symptoms today feels similar. Allergies: Coded Allergies: No Known Drug Allergies (Unverified Allergy, Unknown, 10/02/15) Home Meds Active Scripts Famotidine (Pepcid) 20 Mg Tablet, 1 TAB PO BID for 14 Days, #28 TAB 0 Refills Prov:NATALI THOMAS 02/28/25 Ondansetron (Ondansetron Odt) 4 Mg Tab.rapdis, 4 MG PO BID for 7 Days, #14 TAB Prov:NATALI THOMAS 02/28/25 Reported Medications Insulin NPH Hum/Reg Insulin Hm (Novolin 70-30 Flexpen) 100 Unit/Ml (70-30) Insuln.pen, 10 UNIT SQ HS, SYRINGE 03/01/25 Insulin NPH Hum/Reg Insulin Hm (Novolin 70-30 Flexpen) 100 Unit/Ml (70-30) Insuln.pen, 20 UNIT SQ DAILY, SYRINGE 03/01/25 Past Medical History Past Medical History: Diabetes-Type II, Other Medical History Other: DKA Past Surgical History: Cholecystectomy, Surgical History Other: TUBAL LIGATION 2020 Family History Family History: Negative Social History Social History: Lives with family, Other Female( History) History: Not Applicable ROS Dictation CONSTITUTIONAL: Negative except for HPI HEAD/FACE: Negative except for HPI EENT: Negative except for HPI RESPIRATORY: Negative except for HPI GASTROINTESTINAL/ABDOMINAL: Negative except for HPI GENITOURINARY: Negative except for HPI MUSCULOSKELETAL: Negative except for HPI INTEGUMENTARY: Negative except for HPI NEUROLOGICAL/PSYCH: Negative except for HPI HEMATOLOGIC/LYMPHATIC: Negative except for HPI All Systems Negative, Except as noted above. 13 point review of systems assessed and all negative except for above. Physical Exam Physical Exam Dictation Vital Signs reviewed General Appearance: Alert, oriented x 3, no acute distress, well developed, nourished. Head and Face: non-traumatic. Eyes: PERRL, pink conjunctivas, eyelid no trauma, anterior chamber with arcus senilis. Ears: Pinnas intact and no signs of trauma or erythema ear canals clear and no discharge TM no erythema Nose: No discharge, no bleeding. Oropharynx: Mouth normal, tongue pink, pharynx clear,no erythema, tonsils no exudates, no abscesses noted, mucous membrane moist Neck: Supple, non-tender, no thyromegaly, no masses, no JVD, no bruits Breast:Deferred Chest:No tenderness, no crepitus, no paradoxical movement, no retractions Lungs:Clear, well-ventilated, symmetric, no rales, no wheezing, no rhonchi, no stridor, good breath sounds bilaterally Heart: Regular rate, regular rhythm, no murmur, no gallops Vascular: no peripheral edema, Abdomen: Soft, positive bowel sounds, nondistended, no guarding, nontender, no rebound, no masses no hepatomegaly, no splenomegaly, no Wright's sign, no hernias. Rectal: Deferred Genital: Deferred Neurological: Normal speech, motor function intact, sensory function intact Musculoskeletal: Neck nontender, full range of motion, back nontender, full range of motion, Extremities: nontender, full range of motion Skin: Color pink, dry, no turgor, no rash, no lacerations, no abrasions, no contusions. Lymphatic: Deferred Results Laboratory and Microbiology Lab and Micro Result MDM MDM: Differential diagnosis: DKA, uncontrolled diabetes, electrolyte abnormality, dehydration Rationale: Tests considered and ordered secondary to shared decision making include: Previous outside records reviewed: Old ER visits. Risk of complication and/or morbidity or mortality of patient management: None Medications-Per medication reconciliation Need for hospitalization: Patient does meet criteria for hospitalization. Need for emergency major/minor surgery: No There are no social concerns with this patient. Prescription drug management Prescriptions will include symptomatic care Patient's prior external medical records from other ER visits were reviewed by me as indicated. Prior testing and results from previous visits were reviewed. Prior tests were taken into account with medical decision making and resource utilization, independent historian/historians were used to obtain complete medical history. I independently interpreted the test that were performed, results were reviewed by me and considered findings on radiology if ordered. Medical management and examination interpretation discussions were had by me with other qualified healthcare professionals as indicated for the patient's care. ED Course DX & DISP Disposition: Inpatient Decision to Admit Date: Mar 21, 2025 Departure Impression: Primary Impression: Uncontrolled type 2 diabetes mellitus with hyperglycemia Additional Impression: Intractable nausea and vomiting Condition: Stable Referrals: SELF,REFERRAL (PCP) I have reviewed the case, and I agree with, Diagnosis and Plan I performed the substantive portion of the visit. I have reviewed and personally made and approve the management plan that is documented in the note by myself or the NARCISA. I acknowledge for responsibility for the patient's management plan. NATALI THOMAS Mar 21, 2025 19:47
[2025-03-21 20:08] LABS: AMPHET/METH SCREEN,URINE NEGATIVE (NEGATIVE); BARBITURATE SCREEN, URINE NEGATIVE (NEGATIVE); CANNABINOID SCREEN,URINE NEGATIVE (NEGATIVE); COCAINE SCREEN,URINE NEGATIVE (NEGATIVE)
[2025-03-21] MEDS: LACTATED RINGERS 1000ML 1,000 ML IV STA (20:36)
[2025-03-21 20:53] LABS: CREATININE 0.3 mg/dL (0.5-1.0); GLOMERULAR FILTR. RATE CALC 140.0 mL/min (>90); GLUCOSE,RANDOM 224.0 mg/dL (70-105); SODIUM SERUM 134.0 mmol/L (136-145); UREA NITROGEN, BLOOD 7.0 mg/dL (7-18)
--- NOTE | 2025-03-21 21:07 | HP ---
History of Present Illness Reason for Visit: n/v Referring MD: Self-referral History of Present Illness is a 39-year-old female that was seen and examined today on 03/04 Patient reports that she came to the emergency department with a chief complaint of nausea and vomiting. Onset was today. Location is abdomen. Duration is on and off. Character is described as watery. There was no alleviating factors. Symptoms are aggravated with eating and drinking. Patient denies any associated chest pain or shortness and breath. Today in the emergency department CBC unremarkable, ketones 1.2, magnesium 1.7, glucose 267, urinalysis unremarkable, urine toxicology unremarkable. Past Medical History Patient History: Diabetes mellitus MOTHER, Onset: - FATHER, Onset: - SISTER, Onset: - Hypertension MOTHER, Onset: - FATHER, Onset: - ADDITIONAL PAST MEDICAL HISTORY: [Diabetes mellitius type2] SOCIAL HISTORY: [Negative for smoking, alcohol use, drug use. Patient lives with the , Stas Sandy. Patient is typically independent of her ADLs. Patient denies difficulty paying her bills.] SURGICAL HISTORY: [ section x6, cholecystectomy] Review of Systems General: No Fever, No Chills, No Night Sweats, No Fatigue, No Malaise, No Appetite, No Other HEENT: No Head Aches, No Visual Changes, No Eye Pain, No Ear Pain, No Dysphasia, No Sinus Congestion, No Post Nasal Drip, No Sore Throat, No Other Pulmonary: No Dyspnea, No Cough, No Pleuritic Chest Pain, No Other Cardiovascular: No: Chest Pain, Palpitations, Orthopnea, Paroxysmal Noc. Dyspnea, Edema, Lt Headedness, Other Gastrointestinal: Nausea, Vomiting; No: Abdominal Pain, Diarrhea, Constipation, Melena, Hematochezia, Other Genitourinary: No Dysuria, No Frequency, No Incontinence, No Hematuria, No Retention, No Other Musculoskeletal: No: other, neck pain, shoulder pain, arm pain, back pain, hand pain, leg pain, foot pain Skin: No Urticaria, No Rash, No Other Neurological: No: Weakness, Numbness, Incoordination, Change in speech, Confusion, Seizures, Other Allergies: Coded Allergies: No Known Drug Allergies (Unverified Allergy, Unknown, 10/02/15) Scheduled Insulin NPH Hum/Reg Insulin Hm (Novolin 70-30 Flexpen), 25 UNIT SQ DAILY, (Reported) Insulin NPH Hum/Reg Insulin Hm (Novolin 70-30 Flexpen), 15 UNIT SQ HS, (Reported) Discontinued Medications Famotidine (Pepcid), 1 TAB PO BID Ondansetron (Ondansetron Odt), 4 MG PO BID Exam Vital Signs Vital Signs Date Time Temp Pulse Resp B/P (MAP) Pulse Ox O2 Delivery O2 Flow Rate FiO2 03/21/25 19:30 102 20 162/95 100 Room Air* 0 21 03/21/25 17:51 97.5 General Appearance: Alert, Oriented X3, Cooperative, mild distress HEENT: Atraumatic, PERRLA, EOMI Respiratory: Clear to auscultation, Normal air movement, NL respiratory effort Cardiovascular: Regular rate, Regular rhythm, Normal S1, Normal S2 Abdominal: Normal bowel sounds, Soft, No tenderness Extremities: No clubbing, No cyanosis, No edema Skin: No rashes, No breakdown, No significant lesion Neuro: Normal gait, Normal speech, Strength at 5/5 X4 ext, Sensation intact, Cranial nerves 3-12 NL Psych/Mental Status: Mental status NL, Mood NL, Thoughts/Content NL Assessment/Plan ASSESSMENT: [ Uncontrolled Diabetes mellitius type2, POA Intractable nausea, vomiting, POA Hypomagnesemia, POA] PLAN: [ Admit patient to medical floor as inpatient status. Check glucometer a.c. and HS Humulin R sliding scale One thousand eight hundred ADA diet once patient is no longer nauseated or vomiting Check hemoglobin A1c in a.m. Patient received Reglan 5 mg IV times 1 in the ER As-needed Zofran Patient received Phenergan 25 mg IM times 1 dose Keep patient NPO IV fluid maintenance therapy lactated Ringer's at 100 mL/HR Consider advancing diet tomorrow around lunch time to clear liquids Replace magnesium per hospital protocol GI prophylaxis, famotidine DVT prophylaxis, Lovenox ADVANCED CARE PLANNING 1. Which of the following were discussed? Hospice Care - Yes Therapeutic options - yes Advance Directives - Yes - patient states she does not have any advance directives in place at this time. Patient states that her has been can make decisions for her if she becomes unable. Other discussions - patient wishes to remain a full code at this time 2. Discussed with who? Patient 3. Voluntary nature of this service was explained to the patient? Yes 4. Amount of time spent - ___17 minutes____ 5. Reviewed by Physician? (if this service was performed by NPP) Yes This document was generated in part using voice recognition software, occasional wrong word or sound alike substitutions may have occurred due to the inherent limitations of voice recognition software. Read the chart carefully and recognize using context, where the substitutions have occurred. Although every effort was made to edit the content, grade foreman and typing errors may occur ATTESTATION BY PHYSICIAN I have seen and examined the patient. I reviewed the documentation, medical decision making, and treatment plan as noted by the mid-level provider above. I agree with the findings and plan of care. ] LUIS ENRIQUE RODRIGUEZ [facility] Mar 21, 2025 21:07
[2025-03-21] MEDS: LACTATED RINGERS 1000ML 1,000 ML IV SCH (22:42)
[2025-03-21] MEDS: PROMETHAZINE HCL 25 MG/ML 1ML AMPULE IM ONE (22:42)
[2025-03-21 23:05] VITALS: BP 138/85; PULSE 110; RESP 20; TEMP 98.4
--- NOTE | 2025-03-21 23:05 | NUR ---
ARRIVAL TO UNIT PATIENT ALERT AND ORIENTATED X4. SPOUSE AT BEDSIDE. NO PAIN OR SIGNS OF DISTRESS. BED AT LOWEST POSITION WITH CALL LIGHT WITHIN REACH
[2025-03-21] MEDS: MAGNESIUM 2GM PREMIX 50ML 50 ML IV PRN (23:27)
[2025-03-22 03:36] VITALS: BP 94/52; PULSE 89; RESP 18; TEMP 98.2
[2025-03-22 04:10] LABS: IMMATURE GRANULOCYTE ABSOLUTE 0.04 K/uL (0-1); NUCLEATED RED BLOOD CELLS 0.0 % (0.0-0.19); PLATELET COUNT (AUTO) 105 K/uL (130-400); RED BLOOD CELL COUNT(AUTO) 3.84 MIL/uL (4.00-5.50); RED CELL DISTRIBUTION WIDTH 13.8 % (11.0-15.5); WHITE BLOOD COUNT (AUTO) 8.8 K/uL (4.8-10.8)
[2025-03-22 04:32] LABS: CREATININE 0.3 mg/dL (0.5-1.0); GLOMERULAR FILTR. RATE CALC 140.0 mL/min (>90); GLUCOSE,RANDOM 258.0 mg/dL (70-105); PHOSPHORUS 3.7 mg/dL (2.5-4.9); SODIUM SERUM 132.0 mmol/L (136-145); UREA NITROGEN, BLOOD 10.0 mg/dL (7-18)
[2025-03-22 07:52] LABS: NUCLEATED RED BLOOD CELLS 0.0 % (0.0-0.19); PLATELET COUNT (AUTO) 360.0 K/uL (130-400); RED BLOOD CELL COUNT(AUTO) 3.73 MIL/uL (4.00-5.50); RED CELL DISTRIBUTION WIDTH 14.0 % (11.0-15.5); WHITE BLOOD COUNT (AUTO) 8.7 K/uL (4.8-10.8)
[2025-03-22 08:00] VITALS: BP 91/53; PULSE 81; RESP 18; TEMP 98.1
[2025-03-22 08:34] LABS: ASPARTATE AMINOTRANSFERASE 10.0 U/L (10-37); CREATININE 0.4 mg/dL (0.5-1.0); GLOMERULAR FILTR. RATE CALC 131.0 mL/min (>90); GLUCOSE,RANDOM 197.0 mg/dL (70-105); SODIUM SERUM 136.0 mmol/L (136-145); TOTAL PROTEIN, SERUM 5.9 g/dL (6.0-8.3); UREA NITROGEN, BLOOD 10.0 mg/dL (7-18)
[2025-03-22] MEDS: FAMOTIDINE 20MG VIAL IV SCH (09:30)
[2025-03-22] MEDS: ENOXAPARIN SODIUM 40 MG/0.4 ML SYRINGE SQ SCH (09:30)
[2025-03-22 11:29] VITALS: O2SAT 95
--- NOTE | 2025-03-22 11:52 | NUR ---
PHYSICIAN COMMUNICATION SPOKE WITH DR HOWELL AFTER PATIENT STATED HE HEARD A POP WHILE REPOSITIONING HIMSELF ON THE TOILET. THE PATIENT STATED THAT HE HAS FELT DISCOMFORT SINCE HEARING THE POP TO THE AREA. WAS MADE AWARE, PELVIC XRAY ORDERED TO RULE OUT ANY POST OP COMPLICATIONS. Addendum: 03/22/25 at 1155 by ALAN GOINS LVN LVN INCORRECT PATIENT
--- NOTE | 2025-03-22 11:55 | NUR ---
DISREGARD PREVIOUS NOTE
[2025-03-22 12:16] VITALS: BP 100/67; PULSE 80; RESP 17; TEMP 99.5
--- NOTE | 2025-03-22 12:58 | NUR ---
DCP:HOME Pt currently lives with her Stas Sandy [phone] and children. pt does not have any DME, home health, or provider services. Pt states that she is able to complete ADLs independently. Pt does not have a PCP, SW provided pt with community resources. At [place] pt will want to go home and family can assist with transportation. Addendum: 03/22/25 at 1302 by GAMAL SYED SS Amended: Links added.
[2025-03-22 16:00] VITALS: BP 101/68; PULSE 76; RESP 18; TEMP 98.3
--- NOTE | 2025-03-22 16:12 | PN ---
[facility] PROGRESS NOTE Date of Service: Mar 22, 2025 Time of Service: 16:07 Dr. Shah SUBJECTIVE: [ 03/21/25 is a 39-year-old female that was seen and examined today on 03/21/2025 Patient reports that she came to the emergency department with a chief complaint of nausea and vomiting. Onset was today. Location is abdomen. Duration is on and off. Character is described as watery. There was no alleviating factors. Symptoms are aggravated with eating and drinking. Patient denies any associated chest pain or shortness and breath. Today in the emergency department CBC unremarkable, ketones 1.2, magnesium 1.7, glucose 267, urinalysis unremarkable, urine toxicology unremarkable. 03/22/2025. Patient was seen by nurse practitioner physician during rounding. We will consult predatory game hunter for uncontrolled diabetes mellitus type with hypoglycemia. A1c of 10.1. Patient will also receive [address] abdomen per was was ordered and performed we are pending results. Pending results abnormal we will consult GI. We will continue to monitor patient in the meantime. A.m. labs. ] General: No Fever, No Chills, No Night Sweats, No Fatigue, No Malaise, No Appetite, No Other HEENT: No Head Aches, No Visual Changes, No Eye Pain, No Ear Pain, No Dysphasia, No Sinus Congestion, No Post Nasal Drip, No Sore Throat, No Other Pulmonary: No Dyspnea, No Cough, No Pleuritic Chest Pain, No Other Cardiovascular: No: Chest Pain, Palpitations, Orthopnea, Paroxysmal Noc. Dyspnea, Edema, Lt Headedness, Other Gastrointestinal: Nausea, Vomiting; No: Abdominal Pain, Diarrhea, Constipation, Melena, Hematochezia, Other Genitourinary: No Dysuria, No Frequency, No Incontinence, No Hematuria, No Retention, No Other Musculoskeletal: No: other, neck pain, shoulder pain, arm pain, back pain, hand pain, leg pain, foot pain Skin: No Urticaria, No Rash, No Other Neurological: No: Weakness, Numbness, Incoordination, Change in speech, Confusion, Seizures, Other PHYSICAL EXAM GENERAL APPEARANCE: The patient is awake, alert, and oriented, in no acute cardiopulmonary distress. NEUROLOGICAL: Cranial nerves II-XII grossly intact. Motor is 5/5 in bilateral upper and lower extremities proximal to distal. No sensory deficits. HEENT: Face is symmetric. Pupils are equal and reactive. Extraocular movements are intact. NECK: Supple. No JVD. No thyromegaly. No submental, submandibular, pre- /postauricular, occipital or supraclavicular lymphadenopathy. CHEST: Normal chest expansion. No Telemetry. LUNGS: Absence of any rales, rhonchi or any wheezing. CARDIOVASCULAR: Regular. S1 and S2 normal. No appreciable rubs, murmurs or gallops. ABDOMEN: Soft, nontender, and nondistended. There is no rebound, voluntary guarding, or rigidity. : Deferred. No Nuñez. EXTREMITIES: Non-edematous and not cyanotic. No clubbing. Good capillary refill. SKIN: No skin breakdown. Vital Signs (last 8hr) Date Time Temp Pulse Resp B/P (MAP) Pulse Ox O2 Delivery O2 Flow Rate FiO2 03/22/25 12:16 99.5 80 17 100/67 97 Room Air 03/22/25 11:29 95 Room Air* 0 21 LABS: Laboratory: Test 03/22/25 11:52 03/22/25 07:44 03/22/25 04:01 03/21/25 17:05 Range/Units Whole Blood Glucose 162 H 70-110 MG/DL White Blood Count 8.7 4.8-10.8 K/uL Red Blood Count 3.73 L 4.00-5.50 MIL/uL Hemoglobin 10.3 L 12.0-16.0 g/dL Hematocrit 31.2 L 36-48 % Mean Corpuscular Volume 83.6 79-99 fL Mean Corpuscular Hemoglobin 27.6 27.0-33.0 pg Mean Corpuscular Hemoglobin Concent 33.0 32.0-36.0 g/dL Red Cell Distribution Width 14.0 11.0-15.5 % Platelet Count 360 # 130-400 K/uL Mean Platelet Volume 10.6 H 7.5-10.5 fL Nucleated Red Blood Cells 0.0 0.0-0.19 % Sodium Level 136 136-145 mmol/L Potassium Level 3.4 L 3.5-5.1 mmol/L Chloride Level 103 101-111 mmol/L Carbon Dioxide Level 25 21-32 mmol/L Blood Urea Nitrogen 10 7-18 mg/dL Creatinine 0.4 L 0.5-1.0 mg/dL Glomerular Filtration Rate Calc 131 >90 mL/min Random Glucose 197 H 70-105 mg/dL Total Calcium 8.1 L 8.5-10.1 mg/dL Total Bilirubin 0.3 0.2-1.0 mg/dL Aspartate Amino Transf (AST/SGOT) 10 10-37 U/L Alanine Aminotransferase (ALT/SGPT) 16 # 12-78 U/L Alkaline Phosphatase 49 L 50-136 U/L Total Protein 5.9 #L 6.0-8.3 g/dL Albumin 2.7 #L 3.5-5.0 g/dL Immature Granulocyte % (Auto) 0.5 0-1 % Neutrophils (%) (Auto) 77.0 40.0-77.0 % Lymphocytes (%) (Auto) 17.5 L 21.0-51.0 % Monocytes (%) (Auto) 4.7 3.0-13.0 % Eosinophils (%) (Auto) 0.0 0.0-8.0 % Basophils (%) (Auto) 0.3 0.0-5.0 % Neutrophils # (Auto) 6.8 1.8-7.7 K/uL Lymphocytes # (Auto) 1.5 1.0-4.8 K/uL Monocytes # (Auto) 0.4 0.1-1.0 K/uL Eosinophils # (Auto) 0.00 0.00-0.70 K/uL Basophils # (Auto) 0.03 0.00-0.20 K/uL Absolute Immature Granulocyte (auto 0.04 0-1 K/uL Hemoglobin A1c 10.1 H 4.0-6.0 % Estimated Average Glucose (eAG) 243 H 70-126 mg/dL Phosphorus Level 3.7 2.5-4.9 mg/dL Magnesium Level 2.40 1.80-2.40 mg/dL Blood Gas Specimen Type Arterial Arterial Blood pH 7.373 7.350-7.450 Arterial Blood Partial Pressure CO2 35 32-45 mmHg Arterial Blood Partial Pressure O2 < 45.0 *L 83.0-108.0 mmHg Arterial Blood HCO3 20.0 L 21.0-28.0 mmol/L Arterial Blood Oxygen Saturation 63.7 L 94.0-98.0 % Arterial Blood Base Excess -4.4 L -2.0-3.0 mmol/L Blood Gas Temperature 37.0 35.5-37.0 CELSIUS Blood Gas Vent Mode RA ROOM AIR FiO2 22.0 % Blood Gas Specimen Comment RR Test 03/21/25 16:11 03/21/25 16:07 Range/Units Urine Color LIGHT-YELLOW YELLOW Urine Appearance CLEAR CLEAR Urine pH 8.0 5.0-8.0 Urine Specific [place] 1.039 H 1.001-1.031 Urine Protein 20 H NEGATIVE mg/dL Urine Glucose (UA) >=1000 H NEGATIVE mg/dL Urine Ketones 150 H NEGATIVE mg/dL Urine Occult Blood NEGATIVE NEGATIVE Urine Nitrate NEGATIVE NEGATIVE Urine Bilirubin NEGATIVE NEGATIVE mg/dL Urine Urobilinogen 0.2 0.2-1.0 mg/dL Urine Leukocyte Esterase NEGATIVE NEGATIVE Claudette/uL Urine RBC 0-1 0-1 /HPF Urine WBC 0-1 0-1 /HPF Urine Squamous Epithelial Cells FEW 0-2 /HPF Urine Bacteria None None Seen /HPF Urine Opiates Screen NEGATIVE NEGATIVE Urine Barbiturates Screen NEGATIVE NEGATIVE Urine Phencyclidine Screen NEGATIVE NEGATIVE Urine Amphetamines Screen NEGATIVE NEGATIVE Urine Benzodiazepines Screen NEGATIVE NEGATIVE Urine Cocaine Screen NEGATIVE NEGATIVE Urine Marijuana (THC) Screen NEGATIVE NEGATIVE Whole Blood Ketones Quantitative 1.2 H 0.0-0.6 mmol/L Lipase 19 16-77 U/L Serum Test, Qualitative NEGATIVE NEGATIVE Current Medications Medications (Trade) Dose Ordered Sig/Neva Route PRN Reason Start Time Stop Time Status Last Admin Dose Admin Acetaminophen (TYLenol 650MG SUPPOSITORY) 650 mg Q6H PRN RC MILD PAIN (1-3) 03/21/25 22:30 04/20/25 22:29 Enoxaparin Sodium (Lovenox) 40 mg DAILY SQ 03/22/25 09:00 04/21/25 08:59 03/22/25 09:30 40 MG Famotidine (Pepcid 20mg Vial) 20 mg DAILY IV 03/22/25 09:00 04/21/25 08:59 03/22/25 09:30 20 MG Famotidine (Pepcid 20mg Vial) 20 mg ONCE IV 03/21/25 17:00 03/21/25 22:00 DC 03/21/25 17:02 20 MG Hydralazine HCl (APRESOLine 20MG INJ) 10 mg Q6H PRN IV For:SBP above 160;DBP above 90 03/21/25 22:30 04/20/25 22:29 Insulin Human Regular (humuLIN R 100 UNIT/ML 3ML) INSULIN SLIDING SCAL... ACHS SQ 03/22/25 07:30 04/21/25 07:29 Lactated Ringer's 1,000 ml @ 0 mls/hr Q0M STAT IV 03/21/25 20:22 03/21/25 20:26 DC 03/21/25 20:36 1,000 MLS/HR Lactated Ringer's 1,000 ml @ 100 mls/hr Q10H IV 03/21/25 21:30 04/20/25 21:29 03/22/25 13:51 100 MLS/HR Magnesium Sulfate 50 ml @ 0 mls/hr PROTOCOL PRN IV h 03/21/25 22:30 04/20/25 22:29 03/21/25 23:27 25 MLS/HR Morphine Sulfate (morPHINE 2MG SYG) 2 mg ONCE IM 03/21/25 18:30 03/21/25 22:29 DC 03/21/25 18:27 2 MG Morphine Sulfate (morPHINE 4MG SYG) 4 mg Q4H PRN IVP SEVERE PAIN (7-10) 03/21/25 22:30 03/28/25 22:29 03/21/25 22:47 4 MG Ondansetron HCl (zoFRAN 4MG INJ) 4 mg ONCE IVP 03/21/25 17:00 03/21/25 22:00 DC 03/21/25 17:02 4 MG Ondansetron HCl (zoFRAN 4MG INJ) 4 mg Q6H PRN IV NAUSEA/VOMITING 03/21/25 22:30 04/20/25 22:29 Sodium Chloride 1,000 ml @ 0 mls/hr ONCE IV 03/21/25 17:00 03/22/25 16:59 03/21/25 17:02 1,000 MLS/HR Sodium Chloride 1,000 ml @ 0 mls/hr ONCE IV 03/21/25 18:00 03/21/25 22:00 DC 03/21/25 17:57 1,000 MLS/HR DIAGNOSTICS / RADIOLOGY: [ ] ASSESSMENT: [ Uncontrolled Diabetes mellitius type2, A1c 10.1 POA Intractable nausea, vomiting, POA Hypomagnesemia, POA Hyponatremia Na 132 POA Acute dehydration POA Moderate malnutrition POA Hypotension POA] PLAN: [ We will consult predatory game hunter for uncontrolled diabetes mellitus type with hypoglycemia. A1c of 10.1. Patient will also receive [address] abdomen per was was ordered and performed we are pending results. Pending results abnormal we will consult GI. We will continue to monitor patient in the meantime. A.m. labs. ] Admit patient to medical floor as inpatient status. Check glucometer a.c. and HS Humulin R sliding scale Patient received Reglan 5 mg IV times 1 in the ER As-needed Zofran Patient received Phenergan 25 mg IM times 1 dose Keep patient NPO IV fluid maintenance therapy lactated Ringer's at 100 mL/HR Replace magnesium per hospital protocol GI prophylaxis, famotidine DVT prophylaxis, Lovenox] ATTESTATION BY PHYSICIAN I have seen and examined the patient. I reviewed the documentation, medical decision making, and treatment plan as noted by the mid-level provider above. I agree with the findings and plan of care. Anatoliy Shah IV, MD, KATARZYNA B [employer] RADIO OPERATOR Mar 22, 2025 16:12
--- NOTE | 2025-03-22 17:07 | NUR ---
GRZEGORZ SPOKE WITH PROVIDER ALON RONDON ABOUT PATIENT LEAVING AMA. SPOKE WITH PATIENT REGARDING RISKS ASSOCIATED WITH LEAVING AMA, PATIENT VERBALIZED UNDERSTANDING. PATIENT INFORMED TO MAKE APPOINTMENT OR VISIT WITH PRIMARY CARE PHYSICIAN REGARDING ADMITTING DIAGNOSIS, PATIENT VERBALIZED UNDERSTANDING. AFTER THE PATIENT WAS MADE AWARE OF ALL RISKS ASSOCIATED WITH LEAVING AMA, THE PATIENT SIGNED TO LEAVE.
[2025-03-22] MEDS ORDERED: PHARMACY COMMUNICATION MISC SCH (17:30)
[2025-03-22] MEDS: PoTASSium chloRIDE 20MEQ ER 20 MEQ ERTAB PO ONE (17:36)
--- NOTE | 2025-03-23 04:52 | DS ---
Discharge Summary Hospital Course Summary: DATE OF ADMISSION:[03/21/2025] DATE OF DISCHARGE:[03/22/2025] DISPOSITION:[Patient lives AMA] CONDITION: Patient left AMA [] CONSULTANTS: Stave Machine Tender] FOLLOW UP APPOINTMENTS:[PCP 2 to 3 days. Stave Machine Tender within one week. GI for results of CT abdomen/pelvis] PROCEDURES:[None] IMAGING: report attached to summary MICROBIOLOGY: report attached to summary ACTIVITY:[Independent] HOME MEDICATIONS: see [facility] NEW MEDICATIONS:[Patient left AMA] EMERGENCY INSTRUCTIONS: The patient was instructed to present to the nearest Emergency departmentr or call 911 once their symptoms will return or worsen Gypsum Calciner(s): Patient left AMA 03/22/2025 at 5:07 p.m.. As per RN note "SPOKE WITH PATIENT REGARDING RISKS ASSOCIATED WITH LEAVING AMA, PATIENT VERBALIZED UNDERSTANDING. PATIENT INFORMED TO MAKE APPOINTMENT OR VISIT WITH PRIMARY CARE PHYSICIAN REGARDING ADMITTING DIAGNOSIS, PATIENT VERBALIZED UNDERSTANDING. AFTER THE PATIENT WAS MADE AWARE OF ALL RISKS ASSOCIATED WITH LEAVING AMA, THE PATIENT SIGNED TO LEAVE. " Assessment/Plan: ASSESSMENT: [ Uncontrolled Diabetes mellitius type2, A1c 10.1 POA Intractable nausea, vomiting, POA Hypomagnesemia, POA Hyponatremia Na 132 POA Acute dehydration POA Moderate malnutrition POA Hypotension POA] PLAN: [ We will consult master mechanic for uncontrolled diabetes mellitus type with hypoglycemia. A1c of 10.1. Patient will also receive [address] abdomen per was was ordered and performed we are pending results. Pending results abnormal we will consult GI. We will continue to monitor patient in the meantime. A.m. labs. ] Admit patient to medical floor as inpatient status. Check glucometer a.c. and HS Humulin R sliding scale Patient received Reglan 5 mg IV times 1 in the ER As-needed Zofran Patient received Phenergan 25 mg IM times 1 dose Keep patient NPO IV fluid maintenance therapy lactated Ringer's at 100 mL/HR Replace magnesium per hospital protocol GI prophylaxis, famotidine DVT prophylaxis, Lovenox] Home Medications: Reported Medications Insulin NPH Hum/Reg Insulin Hm (Novolin 70-30 Flexpen) 100 Unit/Ml (70-30) Insuln.pen, 15 UNIT SQ HS, SYRINGE 03/01/25 Insulin NPH Hum/Reg Insulin Hm (Novolin 70-30 Flexpen) 100 Unit/Ml (70-30) Insuln.pen, 25 UNIT SQ DAILY, SYRINGE 03/01/25 Discontinued Scripts Famotidine (Pepcid) 20 Mg Tablet, 1 TAB PO BID for 14 Days, #28 TAB 0 Refills Prov:NATALI THOMAS 02/28/25 Ondansetron (Ondansetron Odt) 4 Mg Tab.rapdis, 4 MG PO BID for 7 Days, #14 TAB Prov:NATALI THOMAS 02/28/25 Time spent arranging discharge: 31-60 minutes ATTESTATION BY PHYSICIAN I have seen and examined the patient. I reviewed the documentation, medical decision making, and treatment plan as noted by the mid-level provider above. I agree with the findings and plan of care. Anatoliy Shah IV, MD, KATARZYNA B APRN Mar 23, 2025 04:52
--- NOTE | 2025-03-23 06:35 | HMCIMG ---
EXAM: CT Abdomen and Pelvis without IV contrast CLINICAL HISTORY: Intractable nausea and vomiting. TECHNIQUE: Noncontrast thin collimated axial CT images of the abdomen and pelvis were obtained with sagittal and coronal reformatted images also submitted. CT scan is done according to ALARA (As Low As Reasonably Achievable). COMPARISON: CT abdomen and pelvis dated 01/26/2025. CONTRAST: None. FINDINGS: Mild dependent atelectasis in the bilateral lung bases. Status post cholecystectomy. Mildly dilated CBD measures up to 1 cm in diameter. No focal abnormality within the liver, pancreas, spleen, adrenals, or kidneys. Grossly unremarkable urinary bladder. The uterus and ovaries are within normal limits. No bowel wall thickening, dilatation, or obstruction. Unremarkable appendix. Grossly unremarkable abdominal vessels. No pathological lymphadenopathy in the abdomen or pelvis. No ascites or pneumoperitoneum. No acute bony abnormality. Degenerative osseous changes. 0.7 cm sclerotic focus in the left proximal femur, likely bony island. IMPRESSIONS: No acute process in the abdomen or pelvis. Status post cholecystectomy. Mildly dilated CBD, which could be secondary to postcholecystectomy physiological changes. Further evaluation with MRCP may be done if there is a clinical suspicion of biliary obstruction. Compared to the prior study, there is no significant interval change. /Damian
== END 2025-03-22 18:06 | disposition left against medical advice (07) | DRG 641 ==
LOC: EDH 15:36 → EDHIP 15:37 → 4AH 22:52
PROVIDERS: ADMIT Internal Medicine; ATTEND Internal Medicine
DX: E87.1 Hypo-osmolality and hyponatremia (principal); E44.0 Moderate protein-calorie malnutrition; E83.42 Hypomagnesemia; I10 Essential (primary) hypertension; E11.65 Type 2 diabetes mellitus with hyperglycemia; E86.0 Dehydration; I95.9 Hypotension, unspecified; Z51.5 Encounter for palliative care; Z79.4 Long term (current) use of insulin
CPT/HCPCS: 36415; 36600; 74176; 80048; 80053; 80305; 81001; 82010; 82803; 82948; 83036; 83690; 83735; 84100; 84703; 85025; 85027; 96374; 96375; 99285; G0378; J1650; J2270; J2405; J2550; J2765; J3475; J3490; J7030; J7120

== ENCOUNTER 2025-03-23 12:10 | Inpatient (IN) | payer SELFPAY ==
[~2025-03-23] VITALS: Ht 165.1 cm; Wt 60.7 kg
[~2025-03-23 12:10] MED LIST changes: -FAMO-136 PO; -ONDA-243 PO
[2025-03-23 12:35] LABS: IMMATURE GRANULOCYTE ABSOLUTE 0.01 K/uL (0-1); NUCLEATED RED BLOOD CELLS 0.0 % (0.0-0.19); PLATELET COUNT (AUTO) 425 K/uL (130-400); RED BLOOD CELL COUNT(AUTO) 4.26 MIL/uL (4.00-5.50); RED CELL DISTRIBUTION WIDTH 14.1 % (11.0-15.5); WHITE BLOOD COUNT (AUTO) 5.8 K/uL (4.8-10.8)
--- NOTE | 2025-03-23 12:39 | EKG ---
[facility] Test Date: 2025-03-23 Test Time: 12:32:52 Pat Name: RAEANN PITT Department: ED Room: 310 Gender: F Application Support Consultant: [id number] : 1985 Requested By: LIBRA GRACIA Order Number: [id number] Reading MD: Pranav Roman Measurements Intervals [place] Rate: 85 P: 80 VT: 135 QRS: 41 QRSD: 84 T: 10 QT: 424 QTc: 505 Interpretive Statements Sinus rhythm Low voltage, precordial leads Compared to ECG 01/25/2025 09:40:16 Low QRS voltage now present Electronically Signed On 03-24-2025 21:49:32 CDT by Pranav Roman Please click the below link to view image of tracing.
[2025-03-23] MEDS: 0.9%NACL 1000ML 1,000 ML IV ONE (12:47)
[2025-03-23 12:53] LABS: CREATININE 0.3 mg/dL (0.5-1.0); GLOMERULAR FILTR. RATE CALC 140.0 mL/min (>90); GLUCOSE,RANDOM 308.0 mg/dL (70-105); SODIUM SERUM 141.0 mmol/L (136-145); UREA NITROGEN, BLOOD 8.0 mg/dL (7-18)
[2025-03-23 12:58] LABS: ASPARTATE AMINOTRANSFERASE 17.0 U/L (10-37); CREATINE KINASE, TOTAL 59.0 U/L (21-232); TOTAL PROTEIN, SERUM 7.0 g/dL (6.0-8.3)
--- NOTE | 2025-03-23 15:07 | HP ---
[facility] HISTORY AND PHYSICAL Date of Service: Mar 23, 2025 Time of Service: 15:07 HISTORY OF PRESENT ILLNESS: Date of service: 03/23/2025, patient was seen in ER nine This is a 39-year-old female with underlying history of poorly controlled type 2 diabetes mellitus (last hemoglobin A1c of 10.1 on 03/22/2025), hyperlipidemia, who presented to the ER for further evaluation on nonresolving nausea and vomiting. Patient [place] [facility] after she had presented with nausea and vomiting and dehydration. Patient left AMA yesterday while undergoing further evaluation. Patient states that symptoms continued to worsen and she reports having vomited 6 times today. She did not take any insulin today. She is currently being followed by GI and had MRCP done on which showed tapering of the distal common bile duct with upstream dilatation of the CBD measuring 1 cm and mild central intrahepatic biliary dilation concerning for a benign stricture. Recommendations was for a EUS versus ERCP. Patient has not been able to follow up with GI as outpatient. She is unsure if she has had a gastric emptying study done for evaluation of gastroparesis previously. Her blood sugars remain poorly controlled and her last hemoglobin A1c was close to 10.1. She reports being a diabetic for more than 10 years. She reports having mild headache today. Denies any chest pain or shortness of breath otherwise. She is having moderate epigastric discomfort. She underwent CT of the abdomen pelvis without contrast yesterday which showed no acute intra- abdominal process. Mild CBD dilation was noted. On presentation to the hospital, patient was noted to be afebrile with T-max of 97.9 F, heart rate of 96, blood pressure 180/106. Labs on presentation showed WBC count of 5800, hemoglobin 11.6, platelet count of 617490. BMP showed sodium of 141, potassium 4.2, CO2 of 27, BUN of eight, creatinine of 0.3, blood glucose was noted to be 308, liver enzymes were noted to be normal. Cardiac panel showed normal troponin. Patient will be admitted for further treatment of nonresolving nausea and vomiting. She is agreeable on staying this admission. She will be started on IV fluids, blood sugars will be controlled, consultation with GI will be requested for further evaluation of abnormal MRCP results. Management of diabetes will be optimized and she will undergo further workup to rule out diabetic gastroparesis. Plan of care was discussed in detail with patient at bedside. REVIEW OF SYSTEMS CONSTITUTIONAL: Denies fevers, chills, or night sweats. No unintentional weight loss reported. NEUROLOGICAL: Denies headache, amaurosis fugax, motor weakness, sensory deficit, vertigo/spinning sensation, gait abnormalities, or tremors. ENT: No hearing loss, otalgia, otorrhea, rhinitis, rhinorrhea, hoarseness, or sore throat. CARDIOVASCULAR: Denies any exertional angina, dyspnea on exertion, orthopnea, paroxysmal nocturnal dyspnea, palpitations, life-threatening arrhythmias, claudication. PULMONARY: Denies any shortness of breath, cough, phlegm/sputum, hemoptysis, pleuritic chest pain. SLEEP: Denies morning headaches, daytime somnolence or napping. Denies difficulty falling asleep, staying asleep, waking from sleep. Denies knowledge of snoring. GASTROINTESTINAL: Resolving nausea, vomiting and reports having epigastric abdominal discomfort GENITOURINARY: Denies frequency, urgency, nocturia, hematuria or incontinence (Storage/Irritative symptoms.) Low urinary stream, straining to void, urinary intermittency or hesitancy, splitting of the voiding stream, terminal dribbling. ENDOCRINOLOGIC: Denies polyuria, polydipsia, polyphagia or heat/cold intolerances. HEMATOLOGIC: Denies thrombophilia/previous clots, or coagulopathy/bleeding disorders. ONCOLOGIC: Denies personal history of malignancy. DERMATOLOGIC: Denies rashes or pruritus. PSYCHIATRIC: Denies any suicidal or homicidal ideation. Denies hallucinations. ADDITIONAL PAST MEDICAL HISTORY: [Poorly controlled Diabetes mellitus type 2] SOCIAL HISTORY: [Negative for smoking, alcohol use, drug use. Patient is typically independent of her ADLs. Patient denies difficulty paying her bills.] SURGICAL HISTORY: [ section x6, cholecystectomy] Allergies: No known drug allergies Home medications: Patient reports taking mixed insulin NPH 35 units in the morning and 15 units at bedtime, she has intermittent compliance to insulin therapy as outpatient Coded Allergies: No Known Drug Allergies (Unverified Allergy, Unknown, 10/02/15) PHYSICAL EXAM GENERAL APPEARANCE: The patient is awake, alert, and oriented, in no acute cardiopulmonary distress. NEUROLOGICAL: Cranial nerves II-XII grossly intact. Motor is 5/5 in bilateral upper and lower extremities proximal to distal. No sensory deficits. HEENT: Face is symmetric. Pupils are equal and reactive. Extraocular movements are intact. NECK: Supple. No JVD. No thyromegaly. No submental, submandibular, pre- /postauricular, occipital or supraclavicular lymphadenopathy. CHEST: Normal chest expansion. No Telemetry. LUNGS: Absence of any rales, rhonchi or any wheezing. CARDIOVASCULAR: Regular. S1 and S2 normal. No appreciable rubs, murmurs or gallops. ABDOMEN: Soft, nondistended, mild tenderness to palpation of the epigastric region : Deferred. No Nuñez. EXTREMITIES: Non-edematous and not cyanotic. No clubbing. Good capillary refill. SKIN: No skin breakdown. Vital Sign (Last 24 Hours) 03/23/25 12:41 Temp 98.1 Pulse 94 Resp 20 B/P (MAP) 174/91 Pulse Ox 97 O2 Delivery Room Air* O2 Flow Rate 0 FiO2 21 LABS: Laboratory: Test 03/23/25 12:28 03/23/25 12:18 Range/Units White Blood Count 5.8 4.8-10.8 K/uL Red Blood Count 4.26 4.00-5.50 MIL/uL Hemoglobin 11.6 L 12.0-16.0 g/dL Hematocrit 36.8 36-48 % Mean Corpuscular Volume 86.4 79-99 fL Mean Corpuscular Hemoglobin 27.2 27.0-33.0 pg Mean Corpuscular Hemoglobin Concent 31.5 L 32.0-36.0 g/dL Red Cell Distribution Width 14.1 11.0-15.5 % Platelet Count 425 H 130-400 K/uL Mean Platelet Volume 10.5 7.5-10.5 fL Immature Granulocyte % (Auto) 0.2 0-1 % Neutrophils (%) (Auto) 74.5 40.0-77.0 % Lymphocytes (%) (Auto) 19.9 L 21.0-51.0 % Monocytes (%) (Auto) 5.1 3.0-13.0 % Eosinophils (%) (Auto) 0.0 0.0-8.0 % Basophils (%) (Auto) 0.3 0.0-5.0 % Neutrophils # (Auto) 4.3 1.8-7.7 K/uL Lymphocytes # (Auto) 1.2 1.0-4.8 K/uL Monocytes # (Auto) 0.3 0.1-1.0 K/uL Eosinophils # (Auto) 0.00 0.00-0.70 K/uL Basophils # (Auto) 0.02 0.00-0.20 K/uL Absolute Immature Granulocyte (auto 0.01 0-1 K/uL Nucleated Red Blood Cells 0.0 0.0-0.19 % Sodium Level 141 136-145 mmol/L Potassium Level 4.2 3.5-5.1 mmol/L Chloride Level 103 101-111 mmol/L Carbon Dioxide Level 27 21-32 mmol/L Blood Urea Nitrogen 8 7-18 mg/dL Creatinine 0.3 L 0.5-1.0 mg/dL Glomerular Filtration Rate Calc 140 >90 mL/min Random Glucose 308 H 70-105 mg/dL Total Calcium 8.6 8.5-10.1 mg/dL Total Bilirubin 0.3 0.2-1.0 mg/dL Aspartate Amino Transf (AST/SGOT) 17 10-37 U/L Alanine Aminotransferase (ALT/SGPT) 22 12-78 U/L Alkaline Phosphatase 58 50-136 U/L Total Creatine Kinase 59 21-232 U/L Troponin I High Sensitivity 4 4-50 ng/L Total Protein 7.0 6.0-8.3 g/dL Albumin 3.5 3.5-5.0 g/dL Lipase 22 16-77 U/L Whole Blood Glucose 268 H 70-110 MG/DL Current Medications Medications (Trade) Dose Ordered Sig/Neva Route PRN Reason Start Time Stop Time Status Last Admin Dose Admin Acetaminophen (TYLenol 325MG TAB) 650 mg Q6H PRN PO MILD PAIN (1-3) 03/23/25 15:00 04/22/25 14:59 Hydralazine HCl (APRESOLine 20MG INJ) 5 mg Q6H PRN IV ADMINISTER FOR SBP > 160 03/23/25 15:00 04/22/25 14:59 Insulin Human Regular (humuLIN R 100 UNIT/ML 3ML) INSULIN SLIDING SCAL... ACHS SQ 03/23/25 16:30 04/22/25 16:29 Lactated Ringer's 1,000 ml @ 100 mls/hr Q10H IV 03/23/25 15:00 04/22/25 14:59 Multivitamins Therapeutic (Multivitamin Tablet) 1 tab DAILY PO 03/24/25 09:00 04/23/25 08:59 Pantoprazole Sodium (PROTonix 40MG INJ) 40 mg DAILY IVP 03/24/25 09:00 04/23/25 08:59 Promethazine HCl (Phenergan) 25 mg Q6H PRN IM NAUSEA/VOMITING 03/23/25 15:00 04/22/25 14:59 Thiamine HCl (Vitamin B-1) 100 mg Q24H IVP 03/23/25 15:00 04/22/25 14:59 DIAGNOSTICS / RADIOLOGY: SERVICE 0623 REASON: intactable nausea and vomiting ORDERING PHYSICIAN: ALON RONDON APRN PROCEDURE: ABD PEL WO - CT ABDOMEN/PELVIS W/O CONTRAST EXAM: CT Abdomen and Pelvis without IV contrast CLINICAL HISTORY: Intractable nausea and vomiting. TECHNIQUE: Noncontrast thin collimated axial CT images of the abdomen and pelvis were obtained with sagittal and coronal reformatted images also submitted. CT scan is done according to ALARA (As Low As Reasonably Achievable). COMPARISON: CT abdomen and pelvis dated 01/26/2025. CONTRAST: None. FINDINGS: Mild dependent atelectasis in the bilateral lung bases. Status post cholecystectomy. Mildly dilated CBD measures up to 1 cm in diameter. No focal abnormality within the liver, pancreas, spleen, adrenals, or kidneys. Grossly unremarkable urinary bladder. The uterus and ovaries are within normal limits. No bowel wall thickening, dilatation, or obstruction. Unremarkable appendix. Grossly unremarkable abdominal vessels. No pathological lymphadenopathy in the abdomen or pelvis. No ascites or pneumoperitoneum. No acute bony abnormality. Degenerative osseous changes. 0.7 cm sclerotic focus in the left proximal femur, likely bony island. IMPRESSIONS: No acute process in the abdomen or pelvis. Status post cholecystectomy. Mildly dilated CBD, which could be secondary to postcholecystectomy physiological changes. Further evaluation with MRCP may be done if there is a clinical suspicion of biliary obstruction. Compared to the prior study, there is no significant interval change. /[place] DICTATED BY: LOBITO CLAIRE MD DATE: 03/23/25 0735 ELECTRONICALLY SIGNED BY: LOBITO CLAIRE MD DATE: 03/23/25 0735 SERVICE [id number] REASON: EPIGASTRIC PAIN ORDERING PHYSICIAN: NINO VIDAL MD PROCEDURE: MRCP WWO - MRCP(ABDWWO)CHOLANGIOPANCREATO EXAM: MR Abdomen including MRCP with and without Intravenous Contrast CLINICAL HISTORY: Patient presents with epigastric pain. TECHNIQUE: Multisequence, multiplanar magnetic resonance images of the abdomen with intravenous contrast. CONTRAST: With intravenous contrast. COMPARISON: 03/02/2025. FINDINGS: LOWER THORAX: No pleural effusion. LIVER: Diffuse hepatic steatosis. No focal lesion. GALLBLADDER AND BILE DUCTS: Gallbladder surgically absent. Smooth tapering of the distal common bile duct with upstream dilated common bile duct measuring up to 1.0 cm and mild central intrahepatic biliary radical dilatation. No choledocholithiasis. PANCREAS: Unremarkable. No ductal dilation. SPLEEN: Unremarkable. ADRENALS: Unremarkable. KIDNEYS: 0.8 cm simple cortical cyst in the left renal lower pole. No hydronephrosis or mass. STOMACH AND BOWEL: No acute process demonstrated on limited evaluation. LYMPH NODES: No lymphadenopathy. VASCULATURE: No abdominal aortic aneurysm. IMPRESSION: Diffuse hepatic steatosis. Status post cholecystectomy. Smooth tapering of the distal common bile duct with upstream dilatation of the common bile duct measuring 1.0 cm and mild central intrahepatic biliary dilatation, may represent a benign stricture. Simple cortical cyst in the left kidney lower pole. Recommendation: Correlation with liver function tests and further evaluation with endoscopic ultrasound (EUS) or ERCP for distal common bile duct assessment. /[place] DICTATED BY: LICHA RUDOLPH Jr., MD DATE: 03/05/25 1558 ELECTRONICALLY SIGNED BY: LICHA RUDOLPH Jr., MD DATE: 03/05/25 1558 ASSESSMENT: Intractable nausea and vomiting for several days, POA Dehydration, POA Uncontrolled hyperglycemia with underlying history of type 2 diabetes mellitus, POA History of poorly controlled type 2 diabetes mellitus, POA Hypertensive urgency, POA History of abnormal MRCP findings with concerns benign CBD stricture, POA Rule out diabetic gastroparesis, POA Headache, POA PLAN: Patient will be admitted to medical-surgical floor under telemetry monitoring We will start patient on IV hydration with LR at 100 mL/hour We will start patient on Lantus 12 units which we will give a dose now for blood sugar in the 300s We will start patient on sliding scale insulin a.c. and HS We will request consultation with GI, patient has prior abnormal MRCP findings, liver function test is normal on labs today, we will keep patient on Protonix [address] abdomen pelvis without contrast from yesterday showed no acute intra-abdominal findings, it showed some mild CBD dilation which was already evaluated from MRCP previously We will see how blood sugar trends in the next 24-48 hours, we will dose adjust Lantus based on blood glucose trend, we will have Dr. Pepe with endocrinology optimize diabetes control We will obtain a nuclear medicine gastric emptying study to assess for gastroparesis Consultation with dietitian will be requested to assist with further nutritional assessment/management We will make sure magnesium is greater than two given QTC prolongation on EKG We will repeat an EKG in the morning With regards to HTN Urgency and headache, patient denies previous hx of HTN, could be 2/2 nausea, vomiting abd discomfort, will start patient on prn IV hydralazine if SBP> 160, we will see how blood pressures trends in the next 24- 48 hours, if needed if BP remains elevated, we can consider starting anti HTN, we will obtain non contrast CT head with regards to headache All labs will be repeated in the morning, we will monitor closely for signs of ketosis or developing DKA, patient remains at risk of starvation ketoacidosis as well, we will keep patient on thiamine supplementation and multivitamins Date of service: 03/23/2025 Plan of care was discussed with patient at bedside Prognosis: Guarded Richard Masters MD Advanced Care Planning: Which of the following were discussed: Hospice care: Yes __ No _X_ Therapeutic options: Yes _X_ No __ Advance directives: Yes _X_ No __ Other discussions: Discussed with who?: Patient Voluntary nature of this service was explained to the patient? Yes _x_ No __ Amount of time spent: 20 minutes RICHRAD MASTERS MD Mar 23, 2025 15:07
[2025-03-23] MEDS ORDERED: PoTASSium chl 10% ELIXIR 20MEQ 20 MEQ/15 ML UDCUP PO PRN (15:30)
[2025-03-23 15:47] LABS: LACTATE DEHYDROGENASE 229.0 U/L (81-234)
--- NOTE | 2025-03-23 15:52 | HMCIMG ---
EXAM: CR Chest, 1 View. CLINICAL HISTORY: r/o any significant infiltrates COMPARISON: None provided. FINDINGS: LUNGS: The lungs show no infiltrate or other acute finding. PLEURAL SPACES: No pleural effusion or pneumothorax. MEDIASTINUM: The cardiomediastinal silhouette is within normal limits. BONES: No aggressive appearing osseous lesion seen. IMPRESSION: No acute cardiopulmonary pathology is evident. /[place]
[2025-03-23] MEDS: LACTATED RINGERS 1000ML 1,000 ML IV SCH (16:23)
[2025-03-23] MEDS: THIAMINE HCL 100 MG/ML 2ML VIAL IVP SCH (16:23)
--- NOTE | 2025-03-23 16:59 | HMCIMG ---
EXAM: CT Head Without IV contrast. CLINICAL HISTORY: non resolving headache, HTN Urgency TECHNIQUE: Axial computed tomography images of the head/brain without intravenous contrast. COMPARISON: None provided. FINDINGS: BRAIN: No evidence of acute hemorrhage. No mass lesion. No CT evidence for acute territorial infarct. No midline shift or extra-axial collections. VENTRICLES: No hydrocephalus. ORBITS: The orbits are unremarkable. SINUSES AND MASTOIDS: The paranasal sinuses and mastoid air cells are clear. BONES: No fracture. SOFT TISSUES: Unremarkable. IMPRESSION: No acute intracranial abnormality. /[place]
[2025-03-23] MEDS ORDERED: GLUCAGON 1MG KIT 1 MG ML IM PRN (18:00)
[2025-03-23] MEDS ORDERED: DEXTROSE 50%-WATER 50 ML DISP.SYRIN IV PRN (18:00)
--- NOTE | 2025-03-23 18:20 | ERN ---
ED Note History of Present Illness Stated Complaint: NON RESOLVING NAUSEA AND VOMITING,DEHYDRATION Chief Complaint: Nausea,Vomiting,Diarrhea Time Seen by MD: 12:15 Time Seen by Midlevel: 12:15 Dictation: The patient is a 39-year-old female with history of DM who presents to the emergency department with complains of nausea and nonbloody vomiting, generalized abd pain onset this morning. Patient was admitted to the hospital 2 days ago but left AMA due to a family emergency. Allergies: Coded Allergies: No Known Drug Allergies (Unverified Allergy, Unknown, 10/02/15) Home Meds Reported Medications Insulin NPH Hum/Reg Insulin Hm (Novolin 70-30 Flexpen) 100 Unit/Ml (70-30) Insuln.pen, 15 UNIT SQ HS, SYRINGE 03/01/25 Insulin NPH Hum/Reg Insulin Hm (Novolin 70-30 Flexpen) 100 Unit/Ml (70-30) Insuln.pen, 25 UNIT SQ DAILY, SYRINGE 03/01/25 Discontinued Scripts Famotidine (Pepcid) 20 Mg Tablet, 1 TAB PO BID for 14 Days, #28 TAB 0 Refills Prov:NATALI THOMAS 02/28/25 Ondansetron (Ondansetron Odt) 4 Mg Tab.rapdis, 4 MG PO BID for 7 Days, #14 TAB Prov:NATALI THOMAS 02/28/25 Past Medical History Past Medical History: Diabetes-Type II Additional Past Medical Hx: DKA Surgical History: Cholecystectomy, Surgical History Other: TUBAL LIGATION 2020 Family History: Negative Social History: Lives with family, Other History: Not Applicable RN Note Reviewed/Agreed w/PFSH: Yes Review of System Dictation Constitutional: Negative for fever,chills, and weight loss Eyes: Negative for injury, pain,redness, and discharge ENT: Negative for injury,pain or swelling Cardiovascular: Negative for chest pain, palpitations, and edema Respiratory: Negative for shortness of breath, cough, and wheezing, Abdomen/GI: Negative for diarrhea, and constipation positive for abdominal pain, nausea, vomiting Back: Negative for injury and pain : Negative for injury, bleeding and discharge MS/Extremity: Negative for injury and deformity Skin: Negative for rash, and discoloration Neuro: Negative for headache, weakness, numbness, tingling, and seizure Psych: Negative for suicide ideation, homicidal ideation, and hallucinations Initial Vital Sign VS Vital Signs Date Time Temp Pulse Resp B/P (MAP) Pulse Ox O2 Delivery O2 Flow Rate FiO2 03/23/25 12:11 97.9 96 18 180/106 97 Room Air 03/23/25 12:41 0 21 Physical Exam Dictation Vital Signs reviewed General Appearance: Alert, oriented x 3, no acute distress, well developed, nourished. Head and Face: non-traumatic. Eyes: PERRL, pink conjunctivas, eyelid no trauma, anterior chamber with arcus senilis. Ears: Pinnas intact and no signs of trauma or erythema ear canals clear and no discharge TM no erythema Nose: No discharge, no bleeding. Oropharynx: Mouth normal, tongue pink. pharynx clear,no erythema, tonsils no exudates, no abscesses noted, mucous membrane moist Neck: Supple, non-tender, no thyromegaly, no masses, no JVD, no bruits Breast:Deferred Chest:No tenderness, no crepitus, no paradoxical movement, no retractions Lungs:Clear, well-ventilated, symmetric, no rales, no wheezing, no rhonchi, no stridor, good breath sounds bilaterally Heart: Regular rate, regular rhythm, no murmur, no gallops Vascular: no peripheral edema, Abdomen: Soft, positive bowel sounds, nondistended, no guarding, nontender, no rebound, no masses no hepatomegaly, no splenomegaly, no Wright's sign, no hernias. Rectal: Deferred Genital: Deferred Neurological: Normal speech, motor function intact, sensory function intact Musculoskeletal: Neck nontender, full range of motion, back nontender, full range of motion, Extremities: nontender, full range of motion Skin: Color pink, dry, no turgor, no rash, no lacerations, no abrasions, no contusions. Lymphatic: Deferred Results (Laboratory/Radiology) Laboratory/Radiology Laboratory Tests Test 03/23/25 12:18 03/23/25 12:28 03/23/25 16:03 Whole Blood Glucose 268 MG/DL (70-110) H 244 MG/DL (70-110) H White Blood Count 5.8 K/uL (4.8-10.8) Red Blood Count 4.26 MIL/uL (4.00-5.50) Hemoglobin 11.6 g/dL (12.0-16.0) L Hematocrit 36.8 % (36-48) Mean Corpuscular Volume 86.4 fL (79-99) Mean Corpuscular Hemoglobin 27.2 pg (27.0-33.0) Mean Corpuscular Hemoglobin Concent 31.5 g/dL (32.0-36.0) L Red Cell Distribution Width 14.1 % (11.0-15.5) Platelet Count 425 K/uL (130-400) H Mean Platelet Volume 10.5 fL (7.5-10.5) Immature Granulocyte % (Auto) 0.2 % (0-1) Neutrophils (%) (Auto) 74.5 % (40.0-77.0) Lymphocytes (%) (Auto) 19.9 % (21.0-51.0) L Monocytes (%) (Auto) 5.1 % (3.0-13.0) Eosinophils (%) (Auto) 0.0 % (0.0-8.0) Basophils (%) (Auto) 0.3 % (0.0-5.0) Neutrophils # (Auto) 4.3 K/uL (1.8-7.7) Lymphocytes # (Auto) 1.2 K/uL (1.0-4.8) Monocytes # (Auto) 0.3 K/uL (0.1-1.0) Eosinophils # (Auto) 0.00 K/uL (0.00-0.70) Basophils # (Auto) 0.02 K/uL (0.00-0.20) Absolute Immature Granulocyte (auto 0.01 K/uL (0-1) Nucleated Red Blood Cells 0.0 % (0.0-0.19) Erythrocyte Sedimentation Rate 18 MM/HR (0-20) Sodium Level 141 mmol/L (136-145) Potassium Level 4.2 mmol/L (3.5-5.1) Chloride Level 103 mmol/L (101-111) Carbon Dioxide Level 27 mmol/L (21-32) Blood Urea Nitrogen 8 mg/dL (7-18) Creatinine 0.3 mg/dL (0.5-1.0) L Glomerular Filtration Rate Calc 140 mL/min (>90) Random Glucose 308 mg/dL (70-105) H Total Calcium 8.6 mg/dL (8.5-10.1) Magnesium Level 2.00 mg/dL (1.80-2.40) Total Bilirubin 0.3 mg/dL (0.2-1.0) Aspartate Amino Transf (AST/SGOT) 17 U/L (10-37) Alanine Aminotransferase (ALT/SGPT) 22 U/L (12-78) Alkaline Phosphatase 58 U/L (50-136) Lactate Dehydrogenase 229 U/L (81-234) Total Creatine Kinase 59 U/L (21-232) Troponin I High Sensitivity 4 ng/L (4-50) C-Reactive Protein, Quantitative 3.20 mg/L (0.5-3.0) H Total Protein 7.0 g/dL (6.0-8.3) Albumin 3.5 g/dL (3.5-5.0) Lipase 22 U/L (16-77) Procalcitonin < 0.05 ng/mL (0.05-0.5) L Serum Test, Qualitative NEGATIVE (NEGATIVE) Labs Reviewed?: Yes EKG: (+) rhythm (Sinus rhythm) EKG Comment: Date:03/23/25 Time:1232 Ventricular rate:85 AR interval:135 QRS duration:84 QT/QTc:424/505 EKG interpretation: Sinus rhythm Reviewed by ED Attending no STEMI ED Course ED Course Orders Procedure Category Date Status Time Cbc With Differential LAB 03/23/25 Complete 12:25 Comprehensive LAB 03/23/25 Complete Metabolic Panel 12:25 Troponin I High LAB 03/23/25 Complete Sensitivity 12:25 ,Urine Test LAB 03/23/25 Logged 12:25 Urinalysis Profile LAB 03/23/25 Logged 12:25 12 Lead Ekg Tracing- EKG 03/23/25 Complete Technical 12:25 0.9%Nacl 1000ml (Ns PHA 03/23/25 Complete 1000ml) 12:30 Ondansetron 4mg Inj PHA 03/23/25 Complete (Zofran 4mg Inj) 12:30 Pantoprazole 40mg Inj PHA 03/23/25 Complete (Protonix 40mg Inj 12:30 Creatine Kinase, Total LAB 03/23/25 Complete 12:25 Lipase LAB 03/23/25 Complete 12:25 Drug Screen Urine LAB 03/23/25 Logged 12:25 Morphine 4mg Syg PHA 03/23/25 Complete (Morphine 4mg Syg) 13:00 Edm Admit Bridge Order ADM 03/23/25 Transmitted 14:34 Admit Orders ADM 03/23/25 Transmitted 14:38 Testing, LAB 03/23/25 Complete Serum Hcg 14:38 Lactated Ringers PHA 03/23/25 In Process 1000ml (Lactated 15:00 Endocrinology Consult CONPHYSVC 03/23/25 Transmitted 14:43 Insulin PHA 03/23/25 Complete Glargine,Hum.Rec.Anlog 15:00 Initiate LUTHER 03/23/25 In Process Hyperglycemia Protoco 14:43 Insulin Regular, PHA 03/23/25 In Process Human 3ml (Humulin R 16:30 Magnesium LAB 03/23/25 Complete 14:43 Acetaminophen 325 Tab PHA 03/23/25 In Process (Tylenol 325mg Tab 15:00 Promethazine Hcl PHA 03/23/25 In Process (Phenergan) 15:00 Pantoprazole 40mg Inj PHA 03/24/25 In Process (Protonix 40mg Inj 09:00 Thiamine Hcl (Vitamin PHA 03/23/25 In Process B-1) 15:00 Multivitamin Tablet PHA 03/24/25 In Process (Multivitamin Tablet 09:00 Chest 1vw RAD 03/23/25 Resulted 14:48 Hydralazine 20mg Inj PHA 03/23/25 In Process (Apresoline 20mg In 15:00 *Nursing CPOE 03/23/25 Transmitted Communication: 14:48 Gastroenterology CONPHYSVC 03/23/25 Transmitted Consult 14:51 Full Liquid DIET 03/23/25 Transmitted Dinner Cbc With Differential LAB 03/24/25 Verified 04:00 Basic Metabolic Panel LAB 03/24/25 Verified 04:00 Magnesium LAB 03/24/25 Verified 04:00 Erythrocyte Sed Rate LAB 03/23/25 Complete 15:00 Crp Quantitative LAB 03/23/25 Complete 15:00 Procalcitonin LAB 03/23/25 Complete 15:00 Lactate Dehydrogenase LAB 03/23/25 Complete 15:00 Magnesium 2gm Premix PHA 03/23/25 In Process 50ml (Magnesium 2gm 15:30 12 Lead Ekg Tracing- EKG 03/24/25 Logged Technical 06:00 Initiate Po LUTHER 03/23/25 In Process Hypokalemia Protoc 15:28 Potassium Chloride PHA 03/23/25 In Process 20meq/100ml ([place] 15:30 Potassium Chl 10% PHA 03/23/25 In Process Elixir 20meq (Kcl 10% 15:30 Potassium Chloride PHA 03/23/25 In Process 20meq Er (K-Dur/Klor- 15:30 Notify Physician If CPOE 03/23/25 Transmitted There Is 15:28 Notify Md On The Next CPOE 03/23/25 Transmitted 15:28 Notify Md On The CPOE 03/23/25 Transmitted Next(Cont.) 15:28 Morphine 2mg Syg PHA 03/23/25 In Process (Morphine 2mg Syg) 15:30 Scd Both Legs While CPOE 03/23/25 Transmitted In Bed 15:28 Ct Head/Brain W/O CT 03/23/25 Resulted Contrast 15:35 Insulin PHA 03/24/25 In Process Glargine,Hum.Rec.Anlog 09:00 Nm Gastric Emptying NM 03/24/25 Logged Study 08:00 Initiate Hypoglycemia LUTHER 03/23/25 In Process Protocol 17:50 Dextrose 50%-Water PHA 03/23/25 In Process (D50w) 18:00 Glucagon 1mg Kit PHA 03/23/25 In Process (Glucagon 1mg Kit) 18:00 Vital Signs Date Time Temp Pulse Resp B/P (MAP) Pulse Ox O2 Delivery O2 Flow Rate FiO2 03/23/25 12:41 98.1 94 20 174/91 97 Room Air* 0 21 03/23/25 12:11 97.9 96 18 180/106 97 Room Air Medical Decision Making MDM MDM: The patient is a 39-year-old female with history of DM who presents to the emergency department with complains of nausea and nonbloody vomiting, generalized abd pain onset this morning. Patient was admitted to the hospital 2 days ago but left AMA due to a family emergency. CBC showed no leukocytosis, mild normocytic anemia, chemistry showed mild hyperglycemia, no DKA, negative lipase, negative troponin, normal liver enzymes. Patient will be admitted for further evaluation and management. Differential diagnosis: Gastroenteritis, dehydration, gastritis, ACS Comorbidities: Diabetes Tests considered and not ordered secondary to shared decision making include: none Previous outside records reviewed: none Risk of complication and/or morbidity or mortality of patient management: The patient meets criteria for admission. Need for emergency major/minor surgery: No There are no social concerns with this patient. I independently interpreted the tests I ordered (labs, urinalysis, etc.). I discussed the case with the hospitalist for admission. who accepts admission I discussed the case with the following specialists: none. Historian: mariposa. I independently interpreted imaging studies and EKGs that I ordered (US, CT, XR, EKG, etc.). External chart review: none. Medical management and examination interpretation discussions were had by me with other qualified healthcare professionals as indicated for the patient's care. DX & DISP Disposition: Inpatient Decision to Admit Date: Mar 23, 2025 Decision to Admit Time: 14:34 Departure Impression: Primary Impression: Intractable nausea and vomiting Condition: Stable Referrals: SELF,REFERRAL (PCP) I have reviewed the case, and I agree with, Diagnosis and Plan LIBRA GRACIA Mar 23, 2025 18:20
[2025-03-23] MEDS: PROMETHAZINE HCL 25 MG/ML 1ML AMPULE IM PRN (20:38)
[2025-03-24 01:53] LABS: HCG,QUALITATIVE URINE NEGATIVE (NEGATIVE)
[2025-03-24 01:54] LABS: ADD UA MICROSCOPIC YES; APPEARANCE,URINE CLOUDY (CLEAR); GLUCOSE, URINE (UA) >=1000 mg/dL (NEGATIVE); LEUKOCYTE ESTERASE ,URINE NEGATIVE Leu/uL (NEGATIVE); NITRATE,URINE NEGATIVE (NEGATIVE); OCCULT BLOOD,URINE NEGATIVE (NEGATIVE)
[2025-03-24 01:55] LABS: SQUAMOUS EPITHELIAL CELL,UR RARE /HPF (0-2)
[2025-03-24 02:01] LABS: AMPHET/METH SCREEN,URINE NEGATIVE (NEGATIVE); BARBITURATE SCREEN, URINE NEGATIVE (NEGATIVE); CANNABINOID SCREEN,URINE NEGATIVE (NEGATIVE); COCAINE SCREEN,URINE NEGATIVE (NEGATIVE)
--- NOTE | 2025-03-24 05:58 | EKG ---
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
[2025-03-24 06:04] LABS: IMMATURE GRANULOCYTE ABSOLUTE 0.02 K/uL (0-1); NUCLEATED RED BLOOD CELLS 0.0 % (0.0-0.19); PLATELET COUNT (AUTO) 402 K/uL (130-400); RED BLOOD CELL COUNT(AUTO) 4.01 MIL/uL (4.00-5.50); RED CELL DISTRIBUTION WIDTH 13.8 % (11.0-15.5); WHITE BLOOD COUNT (AUTO) 6.8 K/uL (4.8-10.8)
[2025-03-24 06:17] LABS: CREATININE 0.3 mg/dL (0.5-1.0); GLOMERULAR FILTR. RATE CALC 140.0 mL/min (>90); GLUCOSE,RANDOM 192.0 mg/dL (70-105); SODIUM SERUM 134.0 mmol/L (136-145); UREA NITROGEN, BLOOD 6.0 mg/dL (7-18)
--- NOTE | 2025-03-24 07:03 | NUR ---
PT TO NUCMED STUDY AT THIS TIME.
[2025-03-24] MEDS: MULTIVITAMIN TABLET PO SCH (09:09)
[2025-03-24] MEDS: ENOXAPARIN SODIUM 40 MG/0.4 ML SYRINGE SQ SCH (09:10)
--- NOTE | 2025-03-24 11:43 | NUR ---
report given to nayeli sanchez, jeniffer sent up with patient
[2025-03-24 11:50] VITALS: O2SAT 98
[2025-03-24 12:31] VITALS: TEMP 97.8
[2025-03-24 12:38] VITALS: BP 112/68; PULSE 81; RESP 18; TEMP 98.6
--- NOTE | 2025-03-24 14:28 | PN ---
[facility] PROGRESS NOTE Date of Service: Mar 24, 2025 Time of Service: 14:27 SUBJECTIVE: This is a 39-year-old female with underlying history of poorly controlled type 2 diabetes mellitus (last hemoglobin A1c of 10.1 on 03/22/2025), hyperlipidemia, who presented to the ER for further evaluation on nonresolving nausea and vomiting. Patient [place] [facility] after she had presented with nausea and vomiting and dehydration. Patient left AMA yesterday while undergoing further evaluation. Patient states that symptoms continued to worsen and she reports having vomited 6 times today. She did not take any insulin today. She is currently being followed by GI and had MRCP done on which showed smoked tapering of the distal common bile duct with upstream dilatation of the CBD measuring 1 cm and mild central intrahepatic biliary dilation concerning for a benign stricture. Recommendations was for a [place] versus ERCP. Patient has not been able to follow up with GI as outpatient. She is unsure if she has had a gastric emptying study done for evaluation of gastroparesis previously. Her blood sugars remain poorly controlled and her last hemoglobin A1c was close to 10.1. She reports being a diabetic for more than 10 years. She reports having mild headache today. Denies any chest pain or shortness of breath otherwise. She is having moderate epigastric discomfort. She underwent CT of the abdomen pelvis without contrast yesterday which showed no acute intra-abdominal process. Mild CBD dilation was noted. On presentation to the hospital, patient was noted to be afebrile with T-max of 97.9 F, heart rate of 96, blood pressure 180/106. Labs on presentation showed WBC count of 5800, hemoglobin 11.6, platelet count of 428546. BMP showed sodium of 141, potassium 4.2, CO2 of 27, BUN of eight, creatinine of 0.3, blood glucose was noted to be 308, liver enzymes were noted to be normal. Cardiac panel showed normal troponin. Patient will be admitted for further treatment of nonresolving nausea and vomiting. She is agreeable on staying this admission. She will be started on IV fluids, blood sugars will be controlled, consultation with GI will be requested for further evaluation of abnormal MRCP results. Management of diabetes will be optimized and she will undergo further workup to rule out diabetic gastroparesis. Plan of care was discussed in detail with patient at bedside. 03/24/25 Patient was evaluated at the bedside. She is hemodynamically stable. She was well-oriented to time place and person. As per the patient she still was feeling nauseous but her vomiting has subsided. There are no other associated symptoms like fever, chills, constipation and diarrhea. Her HbA1c level is 10.1. Patient was admitted to the hospital 2 days ago but left AMA due to a family emergency. REVIEW OF SYSTEMS CONSTITUTIONAL: No fever, chills, or night sweats. NEUROLOGICAL: Denies headache, sensory and motor deficit. CARDIOVASCULAR: Denies any exertional angina, dyspnea on exertion, orthopnea, paroxysmal nocturnal dyspnea, palpitations. PULMONARY: Denies any shortness of breath, cough, phlegm/sputum, hemoptysis, pleuritic chest pain. GASTROINTESTINAL: Complaints of nausea. Her vomiting has subsided since this morning. She also has generalized abdominal pain. GENITOURINARY: Denies frequency, urgency, nocturia, hematuria or incontinence. PHYSICAL EXAM GENERAL APPEARANCE: The patient is alert, awake and oriented and bedbound. NEUROLOGICAL: No sensory and motor deficits. CHEST: Normal chest expansion. LUNGS: Normal vesicular breath sound. Absence of any rales, rhonchi or any wheezing. CARDIOVASCULAR: Regular. S1 and S2 normal. No appreciable rubs, murmurs or gallops. ABDOMEN: Soft slightly tender abdomen. There is no rebound, voluntary guarding, or rigidity. GENITOURINARY: No suprapubic tenderness. No costovertebral angle tenderness. Vital Signs (last 8hr) Date Time Temp Pulse Resp B/P (MAP) Pulse Ox O2 Delivery O2 Flow Rate FiO2 03/24/25 12:38 98.6 81 18 112/68 99 Room Air 03/24/25 11:37 99.1 89 15 148/98 97 Room Air* 0 21 03/24/25 11:31 99.1 03/24/25 09:40 98.8 99 16 144/91 100 Room Air* 0 21 03/24/25 06:41 66 18 105/67 99 Room Air* 0 21 LABS: Laboratory: Test 03/24/25 11:24 03/24/25 05:47 03/24/25 01:35 03/23/25 12:28 Range/Units Whole Blood Glucose 227 H 70-110 MG/DL White Blood Count 6.8 4.8-10.8 K/uL Red Blood Count 4.01 4.00-5.50 MIL/uL Hemoglobin 11.0 L 12.0-16.0 g/dL Hematocrit 33.7 L 36-48 % Mean Corpuscular Volume 84.0 79-99 fL Mean Corpuscular Hemoglobin 27.4 27.0-33.0 pg Mean Corpuscular Hemoglobin Concent 32.6 32.0-36.0 g/dL Red Cell Distribution Width 13.8 11.0-15.5 % Platelet Count 402 H 130-400 K/uL Mean Platelet Volume 10.9 H 7.5-10.5 fL Immature Granulocyte % (Auto) 0.3 0-1 % Neutrophils (%) (Auto) 56.9 40.0-77.0 % Lymphocytes (%) (Auto) 35.3 21.0-51.0 % Monocytes (%) (Auto) 7.1 3.0-13.0 % Eosinophils (%) (Auto) 0.1 0.0-8.0 % Basophils (%) (Auto) 0.3 0.0-5.0 % Neutrophils # (Auto) 3.9 1.8-7.7 K/uL Lymphocytes # (Auto) 2.4 1.0-4.8 K/uL Monocytes # (Auto) 0.5 0.1-1.0 K/uL Eosinophils # (Auto) 0.01 0.00-0.70 K/uL Basophils # (Auto) 0.02 0.00-0.20 K/uL Absolute Immature Granulocyte (auto 0.02 0-1 K/uL Nucleated Red Blood Cells 0.0 0.0-0.19 % Sodium Level 134 L 136-145 mmol/L Potassium Level 3.5 3.5-5.1 mmol/L Chloride Level 98 L 101-111 mmol/L Carbon Dioxide Level 25 21-32 mmol/L Blood Urea Nitrogen 6 L 7-18 mg/dL Creatinine 0.3 L 0.5-1.0 mg/dL Glomerular Filtration Rate Calc 140 >90 mL/min Random Glucose 192 H 70-105 mg/dL Total Calcium 8.3 L 8.5-10.1 mg/dL Magnesium Level 1.70 L 1.80-2.40 mg/dL Urine Color LIGHT-YELLOW YELLOW Urine Appearance CLOUDY H CLEAR Urine pH 6.0 5.0-8.0 Urine Specific [place] 1.020 1.001-1.031 Urine Protein NEGATIVE NEGATIVE mg/dL Urine Glucose (UA) >=1000 H NEGATIVE mg/dL Urine Ketones 150 H NEGATIVE mg/dL Urine Occult Blood NEGATIVE NEGATIVE Urine Nitrate NEGATIVE NEGATIVE Urine Bilirubin NEGATIVE NEGATIVE mg/dL Urine Urobilinogen 0.2 0.2-1.0 mg/dL Urine Leukocyte Esterase NEGATIVE NEGATIVE Claudette/uL Urine RBC 0-1 0-1 /HPF Urine WBC 2-5 H 0-1 /HPF Urine Squamous Epithelial Cells RARE 0-2 /HPF Urine Bacteria None None Seen /HPF Urine HCG, Qualitative NEGATIVE NEGATIVE Urine Opiates Screen NEGATIVE NEGATIVE Urine Barbiturates Screen NEGATIVE NEGATIVE Urine Phencyclidine Screen NEGATIVE NEGATIVE Urine Amphetamines Screen NEGATIVE NEGATIVE Urine Benzodiazepines Screen NEGATIVE NEGATIVE Urine Cocaine Screen NEGATIVE NEGATIVE Urine Marijuana (THC) Screen NEGATIVE NEGATIVE Erythrocyte Sedimentation Rate 18 0-20 MM/HR Total Bilirubin 0.3 0.2-1.0 mg/dL Aspartate Amino Transf (AST/SGOT) 17 10-37 U/L Alanine Aminotransferase (ALT/SGPT) 22 12-78 U/L Alkaline Phosphatase 58 50-136 U/L Lactate Dehydrogenase 229 81-234 U/L Total Creatine Kinase 59 21-232 U/L Troponin I High Sensitivity 4 4-50 ng/L C-Reactive Protein, Quantitative 3.20 H 0.5-3.0 mg/L Total Protein 7.0 6.0-8.3 g/dL Albumin 3.5 3.5-5.0 g/dL Lipase 22 16-77 U/L Procalcitonin < 0.05 L 0.05-0.5 ng/mL Serum Test, Qualitative NEGATIVE NEGATIVE Current Medications Medications (Trade) Dose Ordered Sig/Neva Route PRN Reason Start Time Stop Time Status Last Admin Dose Admin Acetaminophen (TYLenol 325MG TAB) 650 mg Q6H PRN PO MILD PAIN (1-3) 03/23/25 15:00 04/22/25 14:59 03/24/25 11:31 650 MG Dextrose (D50w) 50 ml AD PRN IV HYPOGLYCEMIA PROTOCOL 03/23/25 18:00 04/22/25 17:59 Enoxaparin Sodium (Lovenox) 40 mg DAILY SQ 03/24/25 09:00 04/23/25 08:59 03/24/25 09:10 40 MG Glucagon (Glucagon 1mg Kit) 1 mg AD PRN IM HYPOGLYCEMIA PROTOCOL 03/23/25 18:00 04/22/25 17:59 Hydralazine HCl (APRESOLine 20MG INJ) 5 mg Q6H PRN IV ADMINISTER FOR SBP > 160 03/23/25 15:00 04/22/25 14:59 Insulin Glargine (LANtus 100 UNITS/ML 10 ML VIAL) 15 units DAILY SQ 03/24/25 09:00 04/23/25 08:59 03/24/25 09:11 15 UNITS Insulin Human Regular (humuLIN R 100 UNIT/ML 3ML) INSULIN SLIDING SCAL... ACHS SQ 03/23/25 16:30 04/22/25 16:29 03/24/25 11:28 4 UNIT Lactated Ringer's 1,000 ml @ 100 mls/hr Q10H IV 03/23/25 15:00 04/22/25 14:59 03/24/25 10:08 100 MLS/HR Magnesium Sulfate 50 ml @ 0 mls/hr PROTOCOL IV 03/23/25 15:30 04/22/25 15:29 Morphine Sulfate (morPHINE 2MG SYG) 2 mg Q8H PRN IVP SEVERE PAIN (7-10) 03/23/25 15:30 03/30/25 15:29 03/24/25 09:34 2 MG Multivitamins Therapeutic (Multivitamin Tablet) 1 tab DAILY PO 03/24/25 09:00 04/23/25 08:59 03/24/25 09:09 1 TAB Pantoprazole Sodium (PROTonix 40MG INJ) 40 mg DAILY IVP 03/24/25 09:00 04/23/25 08:59 03/24/25 09:09 40 MG Potassium Chloride 100 ml @ 100 mls/hr AD PRN IV POTASSIUM PROTOCOL 03/23/25 15:30 04/22/25 15:29 Potassium Chloride (K-Dur/Klor-Con 20meq) 20 meq AD PRN PO POTASSIUM PROTOCOL 03/23/25 15:30 04/22/25 15:29 Potassium Chloride (KCl 10% Elixir 20meq/15ml) 20 meq AD PRN PO POTASSIUM PROTOCOL 03/23/25 15:30 04/22/25 15:29 Promethazine HCl (Phenergan) 25 mg Q6H PRN IM NAUSEA/VOMITING 03/23/25 15:00 04/22/25 14:59 03/24/25 09:15 25 MG Thiamine HCl (Vitamin B-1) 100 mg Q24H IVP 03/23/25 15:00 04/22/25 14:59 03/23/25 16:23 100 MG DIAGNOSTICS / RADIOLOGY: [place] [id number] [place] [address] [id number] IMAGING REPORT Signed PATIENT: RAEANN PITT MR#: [id number] : 1985 SEX: F AGE: 39 LOCATION: [facility] ORDER [id number] STATUS: ADM IN REPORT#: [id number] SERVICE 1538 REASON: non resolving headache, HTN Urgency ORDERING PHYSICIAN: DILIA REIS MD PROCEDURE: HEAD WO - CT HEAD/BRAIN W/O CONTRAST EXAM: CT Head Without IV contrast. CLINICAL HISTORY: non resolving headache, HTN Urgency TECHNIQUE: Axial computed tomography images of the head/brain without intravenous contrast. COMPARISON: None provided. FINDINGS: BRAIN: No evidence of acute hemorrhage. No mass lesion. No CT evidence for acute territorial infarct. No midline shift or extra-axial collections. VENTRICLES: No hydrocephalus. ORBITS: The orbits are unremarkable. SINUSES AND MASTOIDS: The paranasal sinuses and mastoid air cells are clear. BONES: No fracture. SOFT TISSUES: Unremarkable. IMPRESSION: No acute intracranial abnormality. /[place] DICTATED BY: LICHA RUDOLPH Jr., MD DATE: 03/23/251757 ELECTRONICALLY SIGNED BY: LICHA RUDOLPH Jr., MD DATE: 03/23/251757 [place] [id number] [place] [id number] IMAGING REPORT Signed PATIENT: RAEANN PITT MR#: [id number] : 1985 SEX: F AGE: 39 LOCATION: [facility] ORDER [id number] STATUS: ADM IN REPORT#: [id number] SERVICE 1448 REASON: r/o any significant infiltrates ORDERING PHYSICIAN: DILIA REIS MD PROCEDURE: CXR1VW - CHEST 1VW EXAM: CR Chest, 1 View. CLINICAL HISTORY: r/o any significant infiltrates COMPARISON: None provided. FINDINGS: LUNGS: The lungs show no infiltrate or other acute finding. PLEURAL SPACES: No pleural effusion or pneumothorax. MEDIASTINUM: The cardiomediastinal silhouette is within normal limits. BONES: No aggressive appearing osseous lesion seen. IMPRESSION: No acute cardiopulmonary pathology is evident. /[place] DICTATED BY: LICHA RUDOLPH Jr., MD DATE: 03/23/251650 ELECTRONICALLY SIGNED BY: LICHA RUDOPLH Jr., MD DATE: 03/23/251650 ASSESSMENT: Intractable nausea and vomiting for several days, POA Dehydration, POA Uncontrolled hyperglycemia with underlying history of type 2 diabetes mellitus, POA History of poorly controlled diabetes mellitus, POA Hypertensive urgency, POA History of abnormal MRCP findings with concerns benign CBD stricture, POA Rule out diabetic gastroparesis, POA Headache, POA PLAN: Intractable nausea and vomiting * Patient reports having vomited 6 times. * Started patient on IV hydration with LR at 100 mL/hour * GI consultation requested, patient has prior abnormal MRCP findings, liver function test is normal on labs today, we will keep patient on Protonix 40 daily * CT abdomen pelvis without contrast showed no acute intra-abdominal findings, it showed some mild CBD dilation which was already evaluated from MRCP previously * Consultation with dietitian will be requested to assist with further nutritional assessment/management Diabetic gastroparesis * Nuclear medicine gastric emptying study to assess for gastroparesis was done today morning. 03/24/25 * Consider prokinetic therapy if the results are positive Uncontrolled hyperglycemia with underlying history of diabetes mellitus * HbA1C level was 10.1 and glucose on presentation was 308. * Glutamic acid decarboxylase antibody test has been ordered.(Anti-NEISHA) * Patient on sliding scale insulin a.c. and HS * Lantus 15 units dose now for high blood sugar * Observe blood sugar trends in the next 24-48 hours, then adjust Lantus based on blood glucose trend, we will have Dr. Pepe with endocrinology optimize diabetes control Supportive measures * All labs will be repeated in the morning * Monitor closely for signs of ketosis or developing DKA, patient remains at risk of starvation ketoacidosis as well, we will keep patient on thiamine supplementation and multivitamins * IV fluids, electrolyte replacement as needed ATTESTATION BY PHYSICIAN I have seen and examined the patient. I reviewed the documentation, medical decision making, and treatment plan as noted by the resident provider above. I agree with the findings and plan of care. Elio Mercado MD [facility] MD Mar 24, 2025 14:28
[2025-03-24 16:04] VITALS: BP 103/70; PULSE 74; RESP 19; TEMP 98.1
--- NOTE | 2025-03-24 19:16 | NUR ---
cm note met with pt and states lives with spouse and children, independent with adls/ambulation. no dme no home services.dc plan is back home. provided list of area community resource clinics, and md listing. good rx assist. pt verbalizes understanding. Addendum: 03/24/25 at 1919 by CAROLYN SALAS CM Amended: Links added.
[2025-03-24 20:00] VITALS: O2SAT 100
[2025-03-24 20:33] VITALS: BP 158/95; PULSE 90; RESP 20; TEMP 98.3
[2025-03-25] VITALS (8 sets, daily range): BP systolic 104–166; BP diastolic 67–95; PULSE 60–100; RESP 16–20; TEMP 97.8–98.7; O2SAT 59–100
[2025-03-25] MEDS: MAGNESIUM 2GM PREMIX 50ML 50 ML IV SCH (00:26)
[2025-03-25 05:48] LABS: NUCLEATED RED BLOOD CELLS 0.0 % (0.0-0.19); PLATELET COUNT (AUTO) 434.0 K/uL (130-400); RED BLOOD CELL COUNT(AUTO) 4.5 MIL/uL (4.00-5.50); RED CELL DISTRIBUTION WIDTH 13.8 % (11.0-15.5); WHITE BLOOD COUNT (AUTO) 6.1 K/uL (4.8-10.8)
[2025-03-25 06:00] LABS: CREATININE 0.2 mg/dL (0.5-1.0); GLOMERULAR FILTR. RATE CALC 154.0 mL/min (>90); GLUCOSE,RANDOM 155.0 mg/dL (70-105); SODIUM SERUM 134.0 mmol/L (136-145); UREA NITROGEN, BLOOD 7.0 mg/dL (7-18)
[2025-03-25] MEDS: PoTASSium chloRIDE 20MEQ ER 20 MEQ ERTAB PO PRN (06:38)
--- NOTE | 2025-03-25 10:11 | PN ---
[facility] PROGRESS NOTE Date of Service: Mar 25, 2025 Time of Service: 10:08 SUBJECTIVE: This is a 39-year-old female with underlying history of poorly controlled type 2 diabetes mellitus (last hemoglobin A1c of 10.1 on 03/22/2025), hyperlipidemia, who presented to the ER for further evaluation on nonresolving nausea and vomiting. Patient was admitted to [facility] on 03/21/2025 after she had presented with nausea and vomiting and dehydration. Patient left AMA yesterday while undergoing further evaluation. Patient states that symptoms continued to worsen and she reports having vomited 6 times today. She did not take any insulin today. She is currently being followed by GI and had MRCP done on which showed smoked tapering of the distal common bile duct with upstream dilatation of the CBD measuring 1 cm and mild central intrahepatic biliary dilation concerning for a benign stricture. Recommendations was for a [place] versus ERCP. Patient has not been able to follow up with GI as outpatient. She is unsure if she has had a gastric emptying study done for evaluation of gastroparesis previously. Her blood sugars remain poorly controlled and her last hemoglobin A1c was close to 10.1. She reports being a diabetic for more than 10 years. She reports having mild headache today. Denies any chest pain or shortness of breath otherwise. She is having moderate epigastric discomfort. She underwent CT of the abdomen pelvis without contrast yesterday which showed no acute intra-abdominal process. Mild CBD dilation was noted. On presentation to the hospital, patient was noted to be afebrile with T-max of 97.9 F, heart rate of 96, blood pressure 180/106. Labs on presentation showed WBC count of 5800, hemoglobin 11.6, platelet count of [id number]. BMP showed sodium of 141, potassium 4.2, CO2 of 27, BUN of eight, creatinine of 0.3, blood glucose was noted to be 308, liver enzymes were noted to be normal. Cardiac panel showed normal troponin. Patient will be admitted for further treatment of nonresolving nausea and vomiting. She is agreeable on staying this admission. She will be started on IV fluids, blood sugars will be controlled, consultation with GI will be requested for further evaluation of abnormal MRCP results. Management of diabetes will be optimized and she will undergo further workup to rule out diabetic gastroparesis. Plan of care was discussed in detail with patient at bedside. 03/24/25 Patient was evaluated at the bedside. She is hemodynamically stable. She was well-oriented to time place and person. As per the patient she still was feeling nauseous but her vomiting has subsided. There are no other associated symptoms like fever, chills, constipation and diarrhea. Her HbA1c level is 10.1. Patient was admitted to the hospital 2 days ago but left AMA due to a family emergency. 03/25/25 Patient was evaluated at the bedside. She is hemodynamically stable. She was well-oriented to time place and person. She still has episodes of vomiting, 2 this morning and 5 episodes yesterday. She also has abdominal pain and mild tenderness. There are no other associated symptoms like fever, chills, shortness of breath. Her blood glucose has trended down from 308 to 155 today. REVIEW OF SYSTEMS CONSTITUTIONAL: No fever, chills, or night sweats. NEUROLOGICAL: Denies headache, sensory and motor deficit. CARDIOVASCULAR: Denies any exertional angina, dyspnea on exertion, orthopnea, paroxysmal nocturnal dyspnea, palpitations. PULMONARY: Denies any shortness of breath, cough, phlegm/sputum, hemoptysis, pleuritic chest pain. GASTROINTESTINAL: Complaints of nausea. Her vomiting is still present, 2 this morning and 5 episodes yesterday. She also has generalized abdominal pain. GENITOURINARY: Denies frequency, urgency, nocturia, hematuria or incontinence. PHYSICAL EXAM GENERAL APPEARANCE: The patient is alert, awake and oriented and bedbound. NEUROLOGICAL: No sensory and motor deficits. CHEST: Normal chest expansion. LUNGS: Normal vesicular breath sound. Absence of any rales, rhonchi or any wheezing. CARDIOVASCULAR: Regular. S1 and S2 normal. No appreciable rubs, murmurs or gallops. ABDOMEN: Soft and slightly tender abdomen. There is no rebound, voluntary guarding, or rigidity. GENITOURINARY: No suprapubic tenderness. No costovertebral angle tenderness. Vital Signs (last 8hr) Date Time Temp Pulse Resp B/P (MAP) Pulse Ox O2 Delivery O2 Flow Rate FiO2 03/25/25 08:00 98.2 100 20 149/90 100 Room Air 21 03/25/25 07:29 100 Room Air* 0 21 03/25/25 04:08 97.9 72 18 111/70 98 Room Air LABS: Laboratory: Test 03/25/25 05:12 03/25/25 05:08 03/24/25 05:47 03/24/25 01:35 Range/Units White Blood Count 6.1 4.8-10.8 K/uL Red Blood Count 4.50 4.00-5.50 MIL/uL Hemoglobin 12.3 12.0-16.0 g/dL Hematocrit 36.5 36-48 % Mean Corpuscular Volume 81.1 79-99 fL Mean Corpuscular Hemoglobin 27.3 27.0-33.0 pg Mean Corpuscular Hemoglobin Concent 33.7 32.0-36.0 g/dL Red Cell Distribution Width 13.8 11.0-15.5 % Platelet Count 434 H 130-400 K/uL Mean Platelet Volume 11.0 H 7.5-10.5 fL Nucleated Red Blood Cells 0.0 0.0-0.19 % Sodium Level 134 L 136-145 mmol/L Potassium Level 3.2 L 3.5-5.1 mmol/L Chloride Level 97 L 101-111 mmol/L Carbon Dioxide Level 25 21-32 mmol/L Blood Urea Nitrogen 7 7-18 mg/dL Creatinine 0.2 L 0.5-1.0 mg/dL Glomerular Filtration Rate Calc 154 >90 mL/min Random Glucose 155 H 70-105 mg/dL Total Calcium 8.3 L 8.5-10.1 mg/dL Magnesium Level 2.00 1.80-2.40 mg/dL Whole Blood Glucose 163 H 70-110 MG/DL Immature Granulocyte % (Auto) 0.3 0-1 % Neutrophils (%) (Auto) 56.9 40.0-77.0 % Lymphocytes (%) (Auto) 35.3 21.0-51.0 % Monocytes (%) (Auto) 7.1 3.0-13.0 % Eosinophils (%) (Auto) 0.1 0.0-8.0 % Basophils (%) (Auto) 0.3 0.0-5.0 % Neutrophils # (Auto) 3.9 1.8-7.7 K/uL Lymphocytes # (Auto) 2.4 1.0-4.8 K/uL Monocytes # (Auto) 0.5 0.1-1.0 K/uL Eosinophils # (Auto) 0.01 0.00-0.70 K/uL Basophils # (Auto) 0.02 0.00-0.20 K/uL Absolute Immature Granulocyte (auto 0.02 0-1 K/uL Urine Color LIGHT-YELLOW YELLOW Urine Appearance CLOUDY H CLEAR Urine pH 6.0 5.0-8.0 Urine Specific [place] 1.020 1.001-1.031 Urine Protein NEGATIVE NEGATIVE mg/dL Urine Glucose (UA) >=1000 H NEGATIVE mg/dL Urine Ketones 150 H NEGATIVE mg/dL Urine Occult Blood NEGATIVE NEGATIVE Urine Nitrate NEGATIVE NEGATIVE Urine Bilirubin NEGATIVE NEGATIVE mg/dL Urine Urobilinogen 0.2 0.2-1.0 mg/dL Urine Leukocyte Esterase NEGATIVE NEGATIVE Claudette/uL Urine RBC 0-1 0-1 /HPF Urine WBC 2-5 H 0-1 /HPF Urine Squamous Epithelial Cells RARE 0-2 /HPF Urine Bacteria None None Seen /HPF Urine HCG, Qualitative NEGATIVE NEGATIVE Urine Opiates Screen NEGATIVE NEGATIVE Urine Barbiturates Screen NEGATIVE NEGATIVE Urine Phencyclidine Screen NEGATIVE NEGATIVE Urine Amphetamines Screen NEGATIVE NEGATIVE Urine Benzodiazepines Screen NEGATIVE NEGATIVE Urine Cocaine Screen NEGATIVE NEGATIVE Urine Marijuana (THC) Screen NEGATIVE NEGATIVE Test 03/23/25 12:28 Range/Units Erythrocyte Sedimentation Rate 18 0-20 MM/HR Total Bilirubin 0.3 0.2-1.0 mg/dL Aspartate Amino Transf (AST/SGOT) 17 10-37 U/L Alanine Aminotransferase (ALT/SGPT) 22 12-78 U/L Alkaline Phosphatase 58 50-136 U/L Lactate Dehydrogenase 229 81-234 U/L Total Creatine Kinase 59 21-232 U/L Troponin I High Sensitivity 4 4-50 ng/L C-Reactive Protein, Quantitative 3.20 H 0.5-3.0 mg/L Total Protein 7.0 6.0-8.3 g/dL Albumin 3.5 3.5-5.0 g/dL Lipase 22 16-77 U/L Procalcitonin < 0.05 L 0.05-0.5 ng/mL Serum Test, Qualitative NEGATIVE NEGATIVE Current Medications Medications (Trade) Dose Ordered Sig/Neva Route PRN Reason Start Time Stop Time Status Last Admin Dose Admin Acetaminophen (TYLenol 325MG TAB) 650 mg Q6H PRN PO MILD PAIN (1-3) 03/23/25 15:00 04/22/25 14:59 03/24/25 11:31 650 MG Dextrose (D50w) 50 ml AD PRN IV HYPOGLYCEMIA PROTOCOL 03/23/25 18:00 04/22/25 17:59 Enoxaparin Sodium (Lovenox) 40 mg DAILY SQ 03/24/25 09:00 04/23/25 08:59 03/25/25 07:30 40 MG Glucagon (Glucagon 1mg Kit) 1 mg AD PRN IM HYPOGLYCEMIA PROTOCOL 03/23/25 18:00 04/22/25 17:59 Hydralazine HCl (APRESOLine 20MG INJ) 5 mg Q6H PRN IV ADMINISTER FOR SBP > 160 03/23/25 15:00 04/22/25 14:59 03/24/25 23:29 5 MG Insulin Glargine (LANtus 100 UNITS/ML 10 ML VIAL) 15 units DAILY SQ 03/24/25 09:00 04/23/25 08:59 03/25/25 07:36 15 UNITS Insulin Human Regular (humuLIN R 100 UNIT/ML 3ML) INSULIN SLIDING SCAL... ACHS SQ 03/23/25 16:30 03/24/25 20:52 DC 03/24/25 18:16 2 UNIT Insulin Human Regular (humuLIN R 100 UNIT/ML 3ML) INSULIN SLIDING SCAL... ACHS SQ 03/24/25 21:00 04/23/25 20:59 Lactated Ringer's 1,000 ml @ 100 mls/hr Q10H IV 03/23/25 15:00 04/22/25 14:59 03/25/25 06:35 100 MLS/HR Magnesium Sulfate 50 ml @ 0 mls/hr PROTOCOL IV 03/23/25 15:30 04/22/25 15:29 03/25/25 00:26 25 MLS/HR Morphine Sulfate (morPHINE 2MG SYG) 2 mg Q8H PRN IVP SEVERE PAIN (7-10) 03/23/25 15:30 03/30/25 15:29 03/25/25 05:19 2 MG Multivitamins Therapeutic (Multivitamin Tablet) 1 tab DAILY PO 03/24/25 09:00 04/23/25 08:59 03/25/25 07:29 1 TAB Pantoprazole Sodium (PROTonix 40MG INJ) 40 mg DAILY IVP 03/24/25 09:00 04/23/25 08:59 03/25/25 07:29 40 MG Potassium Chloride 100 ml @ 100 mls/hr AD PRN IV POTASSIUM PROTOCOL 03/23/25 15:30 04/22/25 15:29 03/25/25 06:47 100 MLS/HR Potassium Chloride (K-Dur/Klor-Con 20meq) 20 meq AD PRN PO POTASSIUM PROTOCOL 03/23/25 15:30 04/22/25 15:29 03/25/25 06:38 20 MEQ Potassium Chloride (KCl 10% Elixir 20meq/15ml) 20 meq AD PRN PO POTASSIUM PROTOCOL 03/23/25 15:30 04/22/25 15:29 Promethazine HCl (Phenergan) 25 mg Q6H PRN IM NAUSEA/VOMITING 03/23/25 15:00 04/22/25 14:59 03/25/25 06:46 25 MG Thiamine HCl (Vitamin B-1) 100 mg Q24H IVP 03/23/25 15:00 04/22/25 14:59 03/24/25 18:14 100 MG DIAGNOSTICS / RADIOLOGY: [ ] ASSESSMENT: Intractable nausea and vomiting for several days, POA Dehydration, POA Uncontrolled hyperglycemia with underlying history of type 2 diabetes mellitus, POA History of poorly controlled diabetes mellitus, POA Hypertensive urgency, POA History of abnormal MRCP findings with concerns benign CBD stricture, POA Rule out diabetic gastroparesis, POA Headache, POA PLAN: Intractable nausea and vomiting * Patient reports having vomited 6 times. * Started patient on IV hydration with LR at 100 mL/hour * GI consultation requested, patient has prior abnormal MRCP findings, liver function test is normal on labs today, we will keep patient on Protonix 40 daily * CT abdomen pelvis without contrast showed no acute intra-abdominal findings, it showed some mild CBD dilation which was already evaluated from MRCP previously * Consultation with dietitian will be requested to assist with further nutritional assessment/management * She still has episodes of nausea and vomiting. 03/25/25 * Will continue IV fluids (RL 100mls/hr) and Protonix 40mg IV once daily. Diabetic gastroparesis * Nuclear medicine gastric emptying study to assess for gastroparesis was done today morning. 03/24/25 * Consider prokinetic therapy if the results are positive * Metoclopramide 5mg TID has been started and will monitor the patient closely. 03/25/25 * Currently awaiting the Gastric Emptying test results. Uncontrolled hyperglycemia with underlying history of diabetes mellitus * HbA1C level was 10.1 and glucose on presentation was 308. * Glutamic acid decarboxylase antibody test has been ordered.(Anti-NEISHA) * Patient on sliding scale insulin a.c. and HS * Lantus 15 units dose now for high blood sugar * Observe blood sugar trends in the next 24-48 hours, then adjust Lantus based on blood glucose trend, we will have Dr. Pepe with endocrinology optimize diabetes control Supportive measures * All labs will be repeated in the morning * Monitor closely for signs of ketosis or developing DKA, patient remains at risk of starvation ketoacidosis as well, we will keep patient on thiamine supplementation and multivitamins * IV fluids, electrolyte replacement as needed ATTESTATION BY PHYSICIAN I have seen and examined the patient. I reviewed the documentation, medical decision making, and treatment plan as noted by the resident provider above. I agree with the findings and plan of care. Sukhi Guillaume MD, SUZIT MD Mar 25, 2025 10:11
--- NOTE | 2025-03-25 16:23 | CONS ---
CONSULT NOTE: Endocrinology Consult Chief complaint: nausea and vomiting Reason for consult:uncontrolled dm-2 DOS: 03/25/25 HISTORY OF PRESENT ILLNESS: This is a 39-year-old female with underlying history of poorly controlled type 2 diabetes mellitus (last hemoglobin A1c of 10.1 on 03/22/2025), hyperlipidemia, who presented to the ER for further evaluation on nonresolving nausea and vomiting. Patient was admitted to [facility] on 03/21/2025 after she had presented with nausea and vomiting and dehydration. Patient left AMA recently while undergoing further evaluation. Patient states that symptoms continued to worsen and she reports having vomited 6 times today. She did not take any insulin today. She is currently being followed by GI and had MRCP done on which showed tapering of the distal common bile duct with upstream dilatation of the CBD measuring 1 cm and mild central intrahepatic biliary dilation concerning for a benign stricture. Recommendations was for a EUS versus ERCP. Patient has not been able to follow up with GI as outpatient. Her blood sugars remain poorly controlled and her last hemoglobin A1c was close to 10.1. She reports being a diabetic for more than 10 years. She reports having mild headache today. Denies any chest pain or shortness of breath otherwise. She is having moderate epigastric discomfort. She underwent CT of the abdomen pelvis without contrast yesterday which showed no acute intra- abdominal process. Mild CBD dilation was noted. On presentation to the hospital, patient was noted to be afebrile with T-max of 97.9 F, heart rate of 96, blood pressure 180/106. Labs on presentation showed WBC count of 5800, hemoglobin 11.6, platelet count of 420460. BMP showed sodium of 141, potassium 4.2, CO2 of 27, BUN of eight, creatinine of 0.3, blood glucose was noted to be 308, liver enzymes were noted to be normal. Cardiac panel showed normal troponin. gastric emptying study is completed to rule out gastroparesis. Home diabetic regimen: novolin 70/30 insulin 20 units am and 10 units pm Hba1c 10.4%, glucose are improving. zinc transporter 8 abs, NEISHA-65 and islet cell abs are negative. DIAGNOSTICS / RADIOLOGY: SERVICE [id number] REASON: intactable nausea and vomiting ORDERING PHYSICIAN: ALON RONDON APRN PROCEDURE: ABD PEL WO - CT ABDOMEN/PELVIS W/O CONTRAST EXAM: CT Abdomen and Pelvis without IV contrast CLINICAL HISTORY: Intractable nausea and vomiting. TECHNIQUE: Noncontrast thin collimated axial CT images of the abdomen and pelvis were obtained with sagittal and coronal reformatted images also submitted. CT scan is done according to ALARA (As Low As Reasonably Achievable). COMPARISON: CT abdomen and pelvis dated 01/26/2025. CONTRAST: None. FINDINGS: Mild dependent atelectasis in the bilateral lung bases. Status post cholecystectomy. Mildly dilated CBD measures up to 1 cm in diameter. No focal abnormality within the liver, pancreas, spleen, adrenals, or kidneys. Grossly unremarkable urinary bladder. The uterus and ovaries are within normal limits. No bowel wall thickening, dilatation, or obstruction. Unremarkable appendix. Grossly unremarkable abdominal vessels. No pathological lymphadenopathy in the abdomen or pelvis. No ascites or pneumoperitoneum. No acute bony abnormality. Degenerative osseous changes. 0.7 cm sclerotic focus in the left proximal femur, likely bony island. IMPRESSIONS: No acute process in the abdomen or pelvis. Status post cholecystectomy. Mildly dilated CBD, which could be secondary to postcholecystectomy physiological changes. Further evaluation with MRCP may be done if there is a clinical suspicion of biliary obstruction. Compared to the prior study, there is no significant interval change. /G[place] Flora DICTATED BY: LOBITO CLAIRE MD DATE: 03/23/25 0735 ELECTRONICALLY SIGNED BY: LOBITO CLAIRE MD DATE: 03/23/25 0735 SERVICE [id number] REASON: EPIGASTRIC PAIN ORDERING PHYSICIAN: NINO VIDAL MD PROCEDURE: MRCP WWO - MRCP(ABDWWO)CHOLANGIOPANCREATO EXAM: MR Abdomen including MRCP with and without Intravenous Contrast CLINICAL HISTORY: Patient presents with epigastric pain. TECHNIQUE: Multisequence, multiplanar magnetic resonance images of the abdomen with intravenous contrast. CONTRAST: With intravenous contrast. COMPARISON: 03/02/2025. FINDINGS: LOWER THORAX: No pleural effusion. LIVER: Diffuse hepatic steatosis. No focal lesion. GALLBLADDER AND BILE DUCTS: Gallbladder surgically absent. Smooth tapering of the distal common bile duct with upstream dilated common bile duct measuring up to 1.0 cm and mild central intrahepatic biliary radical dilatation. No choledocholithiasis. PANCREAS: Unremarkable. No ductal dilation. SPLEEN: Unremarkable. ADRENALS: Unremarkable. KIDNEYS: 0.8 cm simple cortical cyst in the left renal lower pole. No hydronephrosis or mass. STOMACH AND BOWEL: No acute process demonstrated on limited evaluation. LYMPH NODES: No lymphadenopathy. VASCULATURE: No abdominal aortic aneurysm. IMPRESSION: Diffuse hepatic steatosis. Status post cholecystectomy. Smooth tapering of the distal common bile duct with upstream dilatation of the common bile duct measuring 1.0 cm and mild central intrahepatic biliary dilatation, may represent a benign stricture. Simple cortical cyst in the left kidney lower pole. Recommendation: Correlation with liver function tests and further evaluation with endoscopic ultrasound (EUS) or ERCP for distal common bile duct assessment. /G[place] Flora DICTATED BY: LICHA RUDOLPH Jr., MD DATE: 03/05/251557 ELECTRONICALLY SIGNED BY: LICHA RUDOLPH Jr., MD DATE: 03/05/251557 REVIEW OF SYSTEMS 12-point ROS reviewed with the patient. All pertinent positives mentioned above. Otherwise negative, noncontributory, nonpertinent. PAST MEDICAL HISTORY: As mentioned above PAST SURGICAL HISTORY: Cholecystectomy, , tubal ligation PAST SOCIAL HISTORY: Denied alcohol, tobacco, illicit drug use FAMILY HISTORY: Noncontributory Coded Allergies: No Known Drug Allergies (Unverified Allergy, Unknown, 10/02/15) PHYSICAL EXAM GENERAL APPEARANCE: The patient is awake, alert, and oriented, in no acute cardiopulmonary distress. NEUROLOGICAL: Cranial nerves II-XII grossly intact. Motor is 5/5 in bilateral upper and lower extremities proximal to distal. No sensory deficits. HEENT: Face is symmetric. Pupils are equal and reactive. Extraocular movements are intact. NECK: Supple. No JVD. No thyromegaly. No submental, submandibular, pre- /postauricular, occipital or supraclavicular lymphadenopathy. CHEST: Normal chest expansion. No Telemetry. LUNGS: Absence of any rales, rhonchi or any wheezing. CARDIOVASCULAR: Regular. S1 and S2 normal. No appreciable rubs, murmurs or gallops. ABDOMEN: Soft, nontender, and nondistended. There is no rebound, voluntary guarding, or rigidity. : Deferred. No Nuñez. EXTREMITIES: Non-edematous and not cyanotic. No clubbing. Good capillary ref ill. SKIN: No skin breakdown. ASSESSMENT: uncontrolled dm-2,POA glucose are high, so insulin adjusted. Home diabetic regimen: novolin 70/30 insulin 20 units am and 10 units pm Hba1c 10.4%, glucose are improving. Intractable nausea and vomiting for several days, POA Dehydration, POA Hypertensive urgency, POA History of abnormal MRCP findings with concerns benign CBD stricture, POA Rule out diabetic gastroparesis, POA gastric emptying study is done. gastric emptying study is completed to rule out gastroparesis. Headache, POA PLAN: increase lantus to 15 units daily and adjust for fasting glucose. start regular insulin 5 units tid before meals if daytime hyperglycemia. continue medium dose sliding scale insulin. Monitor glucose q x 6 hourly. Continue carb consistent diet. Keep glucose less than 180 mg/dl. Thanks for allowing me to participate in patient care and will continue to follow up. Vital Signs 03/25/25 03/25/25 07:29 12:00 Temp 98.1 Pulse 93 Resp 19 B/P (MAP) 146/93 Pulse Ox 100 O2 Delivery Room Air O2 Flow Rate 0 FiO2 21 Hematology Labs: Test 03/25/25 05:12 03/24/25 05:47 Range/Units White Blood Count 6.1 4.8-10.8 K/uL Red Blood Count 4.50 4.00-5.50 MIL/uL Hemoglobin 12.3 12.0-16.0 g/dL Hematocrit 36.5 36-48 % Mean Corpuscular Volume 81.1 79-99 fL Mean Corpuscular Hemoglobin 27.3 27.0-33.0 pg Mean Corpuscular Hemoglobin Concent 33.7 32.0-36.0 g/dL Red Cell Distribution Width 13.8 11.0-15.5 % Platelet Count 434 H 130-400 K/uL Mean Platelet Volume 11.0 H 7.5-10.5 fL Nucleated Red Blood Cells 0.0 0.0-0.19 % Immature Granulocyte % (Auto) 0.3 0-1 % Neutrophils (%) (Auto) 56.9 40.0-77.0 % Lymphocytes (%) (Auto) 35.3 21.0-51.0 % Monocytes (%) (Auto) 7.1 3.0-13.0 % Eosinophils (%) (Auto) 0.1 0.0-8.0 % Basophils (%) (Auto) 0.3 0.0-5.0 % Neutrophils # (Auto) 3.9 1.8-7.7 K/uL Lymphocytes # (Auto) 2.4 1.0-4.8 K/uL Monocytes # (Auto) 0.5 0.1-1.0 K/uL Eosinophils # (Auto) 0.01 0.00-0.70 K/uL Basophils # (Auto) 0.02 0.00-0.20 K/uL Absolute Immature Granulocyte (auto 0.02 0-1 K/uL Chemistry Labs: Test 03/25/25 16:14 03/25/25 05:12 Range/Units Whole Blood Glucose 133 H 70-110 MG/DL Bedside Glucose Comment Notified Nurse Sodium Level 134 L 136-145 mmol/L Potassium Level 3.2 L 3.5-5.1 mmol/L Chloride Level 97 L 101-111 mmol/L Carbon Dioxide Level 25 21-32 mmol/L Blood Urea Nitrogen 7 7-18 mg/dL Creatinine 0.2 L 0.5-1.0 mg/dL Glomerular Filtration Rate Calc 154 >90 mL/min Random Glucose 155 H 70-105 mg/dL Total Calcium 8.3 L 8.5-10.1 mg/dL Magnesium Level 2.00 1.80-2.40 mg/dL Current Medications Medications (Trade) Dose Ordered Sig/Neva Route Start Time Stop Time Status Last Admin Dose Admin Enoxaparin Sodium (Lovenox) 40 mg DAILY SQ 03/24/25 09:00 04/23/25 08:59 03/25/25 07:30 40 MG Insulin Glargine (LANtus 100 UNITS/ML 10 ML VIAL) 15 units DAILY SQ 03/24/25 09:00 04/23/25 08:59 03/25/25 07:36 15 UNITS Insulin Human Regular (humuLIN R 100 UNIT/ML 3ML) INSULIN SLIDING SCAL... ACHS SQ 03/23/25 16:30 03/24/25 20:52 DC 03/24/25 18:16 2 UNIT Insulin Human Regular (humuLIN R 100 UNIT/ML 3ML) INSULIN SLIDING SCAL... ACHS SQ 03/24/25 21:00 04/23/25 20:59 03/25/25 12:09 2 UNIT Lactated Ringer's 1,000 ml @ 100 mls/hr Q10H IV 03/23/25 15:00 04/22/25 14:59 03/25/25 06:35 100 MLS/HR Magnesium Sulfate 50 ml @ 0 mls/hr PROTOCOL IV 03/23/25 15:30 04/22/25 15:29 03/25/25 00:26 25 MLS/HR Metoclopramide HCl (regLAN 5 MG TAB) 5 mg TIDAC PO 03/25/25 17:00 04/24/25 16:59 Multivitamins Therapeutic (Multivitamin Tablet) 1 tab DAILY PO 03/24/25 09:00 04/23/25 08:59 03/25/25 07:29 1 TAB Pantoprazole Sodium (PROTonix 40MG INJ) 40 mg DAILY IVP 03/24/25 09:00 04/23/25 08:59 03/25/25 07:29 40 MG Thiamine HCl (Vitamin B-1) 100 mg Q24H IVP 03/23/25 15:00 04/22/25 14:59 03/25/25 15:06 100 MG ANTONY ENRIQUEZ MD Mar 25, 2025 16:23
--- NOTE | 2025-03-25 21:08 | HMCIMG ---
EXAM: Nuclear Medicine Gastric Emptying Scan. INDICATION: Non resolving nausea and vomiting. REFERENCE EXAMINATION: None TECHNIQUE: 2.1 mCi of Tc99m sulfur colloid with egg whites, 2 slices of bread/jam, 4 ounces of water. FINDINGS: Transit of radiopharmaceutical is seen from the stomach into the small bowel. 50% gastric emptying not achieved during the period of study. IMPRESSION: Scintigraphic findings suggest gastroparesis. /[place]
[2025-03-26] VITALS (8 sets, daily range): BP systolic 92–158; BP diastolic 54–99; PULSE 70–101; RESP 16–20; TEMP 97.9–98.7; O2SAT 97–98
[2025-03-26 05:22] LABS: NUCLEATED RED BLOOD CELLS 0.0 % (0.0-0.19); PLATELET COUNT (AUTO) 469.0 K/uL (130-400); RED BLOOD CELL COUNT(AUTO) 4.38 MIL/uL (4.00-5.50); RED CELL DISTRIBUTION WIDTH 13.8 % (11.0-15.5); WHITE BLOOD COUNT (AUTO) 6.6 K/uL (4.8-10.8)
[2025-03-26 05:51] LABS: CREATININE 0.2 mg/dL (0.5-1.0); GLOMERULAR FILTR. RATE CALC 154.0 mL/min (>90); GLUCOSE,RANDOM 183.0 mg/dL (70-105); SODIUM SERUM 132.0 mmol/L (136-145); UREA NITROGEN, BLOOD 7.0 mg/dL (7-18)
--- NOTE | 2025-03-26 13:07 | CONS ---
GASTROENTEROLOGY CONSULTATION NOTE Date of Consultation: Mar 26, 2025 Time of Consultation: 13:05 History of Present Illness: [39-year-old female patient with past medical history for diabetes who presented to the emergency room with complaints of nausea and vomiting and generalized abdominal pain for the past 3 days. Patient had been previously evaluated in the ER for the same symptoms but patient left AMA. Patient had previously been recommended to have evaluation for gastroparesis but has not followed up. Gastric emptying time imaging showing scintigraphic findings suggestive of gastroparesis. Chest x-ray was negative. Patient had previous MRCP on 03/04/2025 which showed diffuse hepatic steatosis, status postcholecystectomy. Smooth tapering of the distal common bile duct with upstream dilation of the common bile duct measuring 1.0 cm and mild central intrahepatic biliary dilation, which may represent a benign stricture. Simple cortical cyst in the left kidney lower pole. The patient had previously had COVID infection and was recommended to follow-up as outpatient. CT of abdomen and pelvis on 03/22/25 showing mildly dilated CBD up to 1 cm in diameter. Current WBC of 6.6, hemoglobin 12, platelets 469. Chemistry significant for sodium of 132, potassium 3.4 chloride 97, carbon dioxide 19 creatinine 0.2. Total bilirubin of 0.3, AST and ALT are normal, lipase 22 . Patient awake, alert, and oriented x 3 in sf in no acute distress. VSS. Patient reports she continues to have epigastric pain. POC discussed and plan for ERCP in am. ] Review of Systems: CONSTITUTIONAL: No malaise or change in sensation of wellbeing. ENMT: No rhinorrhea, otorrhea, sinus pain, ear ache. CARDIOVASCULAR: No angina, palpitations, orthopnea or paroxysmal dyspnea. RESPIRATORY: No SOB. GASTROINTESTINAL: No abdominal pain, nausea, vomiting, diarrhea, hematemesis, melena or change in the patient's habitual bowel movements consistency/number. GENITOURINARY: No dysuria, hematuria or change in bladder continence. MUSCULOSKELETAL: No new muscle pain or decrease in muscular strength. No new joint swelling, redness or tenderness. SKIN: No new rash. Past Medical History: [Poorly controlled Diabetes mellitus type 2] SOCIAL HISTORY: [Negative for smoking, alcohol use, drug use. Patient is typically independent of her ADLs. Patient denies difficulty paying her bills.] SURGICAL HISTORY: [ section x6, cholecystectomy] Coded Allergies: No Known Drug Allergies (Unverified Allergy, Unknown, 10/02/15) Physical Exam: GEN: Awake, alert, oriented in person, time and place, and in no acute distress. HEENT: Oral mucosa moist. CHEST: Lung auscultation revealed normal breath sounds bilaterally. CARDIAC: Heart sounds are regular. ABD: Soft, tender to epigastric region, not distended. Normal bowel sounds. EXT: No cyanosis or clubbing. No edema. SKIN: Intact. No rashes. JOINTS: No evidence of synovitis or acute arthritis. NEURO: Alert and oriented to name, place and person. No focal motor deficits. Normal speech Vital Sign (Last 24 Hours) 03/26/25 03/26/25 07:37 12:00 Temp 98.1 Pulse 79 Resp 19 B/P (MAP) 107/62 Pulse Ox 98 O2 Delivery Room Air O2 Flow Rate 0 FiO2 21 Intake & Output (last 24hrs) 03/25/25 03/25/25 03/26/25 15:00 23:00 07:00 Intake Total 800 ml Balance 800 ml Laboratory: [ ] Laboratory: Test 03/26/25 11:09 03/26/25 05:02 03/25/25 16:14 03/25/25 05:12 Range/Units Whole Blood Glucose 131 H 70-110 MG/DL White Blood Count 6.6 4.8-10.8 K/uL Red Blood Count 4.38 4.00-5.50 MIL/uL Hemoglobin 12.0 12.0-16.0 g/dL Hematocrit 35.9 L 36-48 % Mean Corpuscular Volume 82.0 79-99 fL Mean Corpuscular Hemoglobin 27.4 27.0-33.0 pg Mean Corpuscular Hemoglobin Concent 33.4 32.0-36.0 g/dL Red Cell Distribution Width 13.8 11.0-15.5 % Platelet Count 469 H 130-400 K/uL Mean Platelet Volume 10.3 7.5-10.5 fL Nucleated Red Blood Cells 0.0 0.0-0.19 % Sodium Level 132 L 136-145 mmol/L Potassium Level 3.4 L 3.5-5.1 mmol/L Chloride Level 97 L 101-111 mmol/L Carbon Dioxide Level 19 L 21-32 mmol/L Blood Urea Nitrogen 7 7-18 mg/dL Creatinine 0.2 L 0.5-1.0 mg/dL Glomerular Filtration Rate Calc 154 >90 mL/min Random Glucose 183 H 70-105 mg/dL Total Calcium 8.6 8.5-10.1 mg/dL Bedside Glucose Comment Notified Nurse Magnesium Level 2.00 1.80-2.40 mg/dL Current Medications Medications (Trade) Dose Ordered Sig/Neva Route PRN Reason Start Time Stop Time Status Last Admin Dose Admin Acetaminophen (TYLenol 325MG TAB) 650 mg Q6H PRN PO MILD PAIN (1-3) 03/23/25 15:00 04/22/25 14:59 03/24/25 11:31 650 MG Dextrose (D50w) 50 ml AD PRN IV HYPOGLYCEMIA PROTOCOL 03/23/25 18:00 04/22/25 17:59 Enoxaparin Sodium (Lovenox) 40 mg DAILY SQ 03/24/25 09:00 04/23/25 08:59 03/26/25 07:39 40 MG Glucagon (Glucagon 1mg Kit) 1 mg AD PRN IM HYPOGLYCEMIA PROTOCOL 03/23/25 18:00 04/22/25 17:59 Hydralazine HCl (APRESOLine 20MG INJ) 5 mg Q6H PRN IV ADMINISTER FOR SBP > 160 03/23/25 15:00 04/22/25 14:59 03/24/25 23:29 5 MG Insulin Glargine (LANtus 100 UNITS/ML 10 ML VIAL) 15 units DAILY SQ 03/24/25 09:00 04/23/25 08:59 03/26/25 07:44 15 UNITS Insulin Human Regular (humuLIN R 100 UNIT/ML 3ML) INSULIN SLIDING SCAL... ACHS SQ 03/23/25 16:30 03/24/25 20:52 DC 03/24/25 18:16 2 UNIT Insulin Human Regular (humuLIN R 100 UNIT/ML 3ML) INSULIN SLIDING SCAL... ACHS SQ 03/24/25 21:00 04/23/25 20:59 03/25/25 12:09 2 UNIT Lactated Ringer's 1,000 ml @ 200 mls/hr Q5H IV 03/23/25 15:00 04/22/25 14:59 03/26/25 03:44 100 MLS/HR Magnesium Sulfate 50 ml @ 0 mls/hr PROTOCOL IV 03/23/25 15:30 04/22/25 15:29 03/25/25 00:26 25 MLS/HR Metoclopramide HCl (regLAN 5 MG TAB) 5 mg TIDAC PO 03/25/25 17:00 03/26/25 12:23 DC 03/26/25 12:21 5 MG Metoclopramide HCl (regLAN 5 MG TAB) 10 mg TIDAC PO 03/26/25 17:00 04/25/25 16:59 Morphine Sulfate (morPHINE 2MG SYG) 2 mg Q8H PRN IVP SEVERE PAIN (7-10) 03/23/25 15:30 03/30/25 15:29 03/26/25 03:41 2 MG Multivitamins Therapeutic (Multivitamin Tablet) 1 tab DAILY PO 03/24/25 09:00 04/23/25 08:59 03/26/25 07:38 1 TAB Pantoprazole Sodium (PROTonix 40MG INJ) 40 mg DAILY IVP 03/24/25 09:00 04/23/25 08:59 03/26/25 07:37 40 MG Potassium Chloride 100 ml @ 100 mls/hr AD PRN IV POTASSIUM PROTOCOL 03/23/25 15:30 04/22/25 15:29 03/25/25 06:47 100 MLS/HR Potassium Chloride (K-Dur/Klor-Con 20meq) 20 meq AD PRN PO POTASSIUM PROTOCOL 03/23/25 15:30 04/22/25 15:29 03/26/25 07:38 20 MEQ Potassium Chloride (KCl 10% Elixir 20meq/15ml) 20 meq AD PRN PO POTASSIUM PROTOCOL 03/23/25 15:30 04/22/25 15:29 Promethazine HCl (Phenergan) 25 mg Q6H PRN IM NAUSEA/VOMITING 03/23/25 15:00 04/22/25 14:59 03/26/25 01:29 25 MG Thiamine HCl (Vitamin B-1) 100 mg Q24H IVP 03/23/25 15:00 04/22/25 14:59 03/25/25 15:06 100 MG Diagnostics / Radiology: [COPY/PASTE HERE IF NO REPORTS PLEASE DELETE SECTION] Assessment: Abdominal pain Nausea and vomiting Dilated CBD Type 2 DM ] Plan: Case discussed with Dr. Israel [ NPO Plan for ERCP in am Gi prophylaxis with protonix 40mg IV bid Please call with questions, concerns, and change in clinical status Thank you for allowing us to be part of this patient's care. ] JULIETA CEDILLO NP Mar 26, 2025 13:07
--- NOTE | 2025-03-26 14:19 | PN ---
[facility] PROGRESS NOTE Date of Service: Mar 26, 2025 Time of Service: 14:11 SUBJECTIVE: This is a 39-year-old female with underlying history of poorly controlled type 2 diabetes mellitus (last hemoglobin A1c of 10.1 on 03/22/2025), hyperlipidemia, who presented to the ER for further evaluation on nonresolving nausea and vomiting. Patient was admitted to [facility] on 03/21/2025 after she had presented with nausea and vomiting and dehydration. Patient left AMA yesterday while undergoing further evaluation. Patient states that symptoms continued to worsen and she reports having vomited 6 times today. She did not take any insulin today. She is currently being followed by GI and had MRCP done on which showed smoked tapering of the distal common bile duct with upstream dilatation of the CBD measuring 1 cm and mild central intrahepatic biliary dilation concerning for a benign stricture. Recommendations was for a [place] versus ERCP. Patient has not been able to follow up with GI as outpatient. She is unsure if she has had a gastric emptying study done for evaluation of gastroparesis previously. Her blood sugars remain poorly controlled and her last hemoglobin A1c was close to 10.1. She reports being a diabetic for more than 10 years. She reports having mild headache today. Denies any chest pain or shortness of breath otherwise. She is having moderate epigastric discomfort. She underwent CT of the abdomen pelvis without contrast yesterday which showed no acute intra-abdominal process. Mild CBD dilation was noted. On presentation to the hospital, patient was noted to be afebrile with T-max of 97.9 F, heart rate of 96, blood pressure 180/106. Labs on presentation showed WBC count of 5800, hemoglobin 11.6, platelet count of 872407. BMP showed sodium of 141, potassium 4.2, CO2 of 27, BUN of eight, creatinine of 0.3, blood glucose was noted to be 308, liver enzymes were noted to be normal. Cardiac panel showed normal troponin. Patient will be admitted for further treatment of nonresolving nausea and vomiting. She is agreeable on staying this admission. She will be started on IV fluids, blood sugars will be controlled, consultation with GI will be requested for further evaluation of abnormal MRCP results. Management of diabetes will be optimized and she will undergo further workup to rule out diabetic gastroparesis. Plan of care was discussed in detail with patient at bedside. 03/24/25 Patient was evaluated at the bedside. She is hemodynamically stable. She was well-oriented to time place and person. As per the patient she still was feeling nauseous but her vomiting has subsided. There are no other associated symptoms like fever, chills, constipation and diarrhea. Her HbA1c level is 10.1. Patient was admitted to the hospital 2 days ago but left AMA due to a family emergency. 03/25/25 Patient was evaluated at the bedside. She is hemodynamically stable. She was well-oriented to time place and person. She still has episodes of vomiting, 2 this morning and 5 episodes yesterday. She also has abdominal pain and mild tenderness. There are no other associated symptoms like fever, chills, shortness of breath. Her blood glucose has trended down from 308 to 155 today. 03/26/25 Patient was evaluated at the bedside. She is hemodynamically stable. She was well-oriented to time place and person. She still has episodes of vomiting, 1 this morning and 3 episodes yesterday. She also has abdominal pain. Gastric emptying test was suggestive of gastroparesis. Ringer's lactate has been increased to 200 mL/hour and metoclopramide to 10 mg thrice daily. REVIEW OF SYSTEMS CONSTITUTIONAL: No fever, chills, or night sweats. NEUROLOGICAL: Denies headache, sensory and motor deficit. CARDIOVASCULAR: Denies any exertional angina, dyspnea on exertion, orthopnea, paroxysmal nocturnal dyspnea, palpitations. PULMONARY: Denies any shortness of breath, cough, phlegm/sputum, hemoptysis, pleuritic chest pain. GASTROINTESTINAL: Complaints of nausea. Her vomiting is still present, 1 this morning and 3 episodes yesterday. She also has generalized abdominal pain. GENITOURINARY: Denies frequency, urgency, nocturia, hematuria or incontinence. PHYSICAL EXAM GENERAL APPEARANCE: The patient is alert, awake and oriented and bedbound. NEUROLOGICAL: No sensory and motor deficits. CHEST: Normal chest expansion. LUNGS: Normal vesicular breath sound. Absence of any rales, rhonchi or any wheezing. CARDIOVASCULAR: Regular. S1 and S2 normal. No appreciable rubs, murmurs or gallops. ABDOMEN: Soft and slightly tender abdomen. There is no rebound, voluntary guarding, or rigidity. GENITOURINARY: No suprapubic tenderness. No costovertebral angle tenderness. Vital Signs (last 8hr) Date Time Temp Pulse Resp B/P (MAP) Pulse Ox O2 Delivery O2 Flow Rate FiO2 03/26/25 12:00 98.1 79 19 107/62 98 Room Air 03/26/25 08:00 98.2 80 17 106/63 97 Room Air 03/26/25 07:37 97 Room Air* 0 21 LABS: Laboratory: Test 03/26/25 11:09 03/26/25 05:02 03/25/25 16:14 03/25/25 05:12 Range/Units Whole Blood Glucose 131 H 70-110 MG/DL White Blood Count 6.6 4.8-10.8 K/uL Red Blood Count 4.38 4.00-5.50 MIL/uL Hemoglobin 12.0 12.0-16.0 g/dL Hematocrit 35.9 L 36-48 % Mean Corpuscular Volume 82.0 79-99 fL Mean Corpuscular Hemoglobin 27.4 27.0-33.0 pg Mean Corpuscular Hemoglobin Concent 33.4 32.0-36.0 g/dL Red Cell Distribution Width 13.8 11.0-15.5 % Platelet Count 469 H 130-400 K/uL Mean Platelet Volume 10.3 7.5-10.5 fL Nucleated Red Blood Cells 0.0 0.0-0.19 % Sodium Level 132 L 136-145 mmol/L Potassium Level 3.4 L 3.5-5.1 mmol/L Chloride Level 97 L 101-111 mmol/L Carbon Dioxide Level 19 L 21-32 mmol/L Blood Urea Nitrogen 7 7-18 mg/dL Creatinine 0.2 L 0.5-1.0 mg/dL Glomerular Filtration Rate Calc 154 >90 mL/min Random Glucose 183 H 70-105 mg/dL Total Calcium 8.6 8.5-10.1 mg/dL Bedside Glucose Comment Notified Nurse Magnesium Level 2.00 1.80-2.40 mg/dL Current Medications Medications (Trade) Dose Ordered Sig/Neva Route PRN Reason Start Time Stop Time Status Last Admin Dose Admin Acetaminophen (TYLenol 325MG TAB) 650 mg Q6H PRN PO MILD PAIN (1-3) 03/23/25 15:00 04/22/25 14:59 03/24/25 11:31 650 MG Dextrose (D50w) 50 ml AD PRN IV HYPOGLYCEMIA PROTOCOL 03/23/25 18:00 04/22/25 17:59 Enoxaparin Sodium (Lovenox) 40 mg DAILY SQ 03/24/25 09:00 04/23/25 08:59 03/26/25 07:39 40 MG Glucagon (Glucagon 1mg Kit) 1 mg AD PRN IM HYPOGLYCEMIA PROTOCOL 03/23/25 18:00 04/22/25 17:59 Hydralazine HCl (APRESOLine 20MG INJ) 5 mg Q6H PRN IV ADMINISTER FOR SBP > 160 03/23/25 15:00 04/22/25 14:59 03/24/25 23:29 5 MG Insulin Glargine (LANtus 100 UNITS/ML 10 ML VIAL) 15 units DAILY SQ 03/24/25 09:00 04/23/25 08:59 03/26/25 07:44 15 UNITS Insulin Human Regular (humuLIN R 100 UNIT/ML 3ML) INSULIN SLIDING SCAL... ACHS SQ 03/23/25 16:30 03/24/25 20:52 DC 03/24/25 18:16 2 UNIT Insulin Human Regular (humuLIN R 100 UNIT/ML 3ML) INSULIN SLIDING SCAL... ACHS SQ 03/24/25 21:00 04/23/25 20:59 03/25/25 12:09 2 UNIT Lactated Ringer's 1,000 ml @ 200 mls/hr Q5H IV 03/23/25 15:00 04/22/25 14:59 03/26/25 03:44 100 MLS/HR Magnesium Sulfate 50 ml @ 0 mls/hr PROTOCOL IV 03/23/25 15:30 04/22/25 15:29 03/25/25 00:26 25 MLS/HR Metoclopramide HCl (regLAN 5 MG TAB) 5 mg TIDAC PO 03/25/25 17:00 03/26/25 12:23 DC 03/26/25 12:21 5 MG Metoclopramide HCl (regLAN 5 MG TAB) 10 mg TIDAC PO 03/26/25 17:00 04/25/25 16:59 Morphine Sulfate (morPHINE 2MG SYG) 2 mg Q8H PRN IVP SEVERE PAIN (7-10) 03/23/25 15:30 03/30/25 15:29 03/26/25 03:41 2 MG Multivitamins Therapeutic (Multivitamin Tablet) 1 tab DAILY PO 03/24/25 09:00 04/23/25 08:59 03/26/25 07:38 1 TAB Pantoprazole Sodium (PROTonix 40MG INJ) 40 mg DAILY IVP 03/24/25 09:00 04/23/25 08:59 03/26/25 07:37 40 MG Potassium Chloride 100 ml @ 100 mls/hr AD PRN IV POTASSIUM PROTOCOL 03/23/25 15:30 04/22/25 15:29 03/25/25 06:47 100 MLS/HR Potassium Chloride (K-Dur/Klor-Con 20meq) 20 meq AD PRN PO POTASSIUM PROTOCOL 03/23/25 15:30 04/22/25 15:29 03/26/25 07:38 20 MEQ Potassium Chloride (KCl 10% Elixir 20meq/15ml) 20 meq AD PRN PO POTASSIUM PROTOCOL 03/23/25 15:30 04/22/25 15:29 Promethazine HCl (Phenergan) 25 mg Q6H PRN IM NAUSEA/VOMITING 03/23/25 15:00 04/22/25 14:59 03/26/25 01:29 25 MG Thiamine HCl (Vitamin B-1) 100 mg Q24H IVP 03/23/25 15:00 04/22/25 14:59 03/25/25 15:06 100 MG DIAGNOSTICS / RADIOLOGY: [place] [address] IMAGING REPORT Signed PATIENT: RAEANN PITT MR#: [id number] : 1985 SEX: F AGE: 39 LOCATION: 3BH ORDER [id number] STATUS: ADM IN REPORT#: [id number] SERVICE 0800 REASON: non resolving n/v, hx of II x 10 years, assess for gastroparesis ORDERING PHYSICIAN: DILIA REIS MD PROCEDURE: GASTEMP - NM GASTRIC EMPTYING STUDY EXAM: Nuclear Medicine Gastric Emptying Scan. INDICATION: Non resolving nausea and vomiting. REFERENCE EXAMINATION: None TECHNIQUE: 2.1 mCi of Tc99m sulfur colloid with egg whites, 2 slices of bread/jam, 4 ounces of water. FINDINGS: Transit of radiopharmaceutical is seen from the stomach into the small bowel. 50% gastric emptying not achieved during the period of study. IMPRESSION: Scintigraphic findings suggest gastroparesis. /[place] DICTATED BY: LICHA RUDOLPH Jr., MD DATE: 03/25/252207 ELECTRONICALLY SIGNED BY: LICHA RUDOLPH Jr., MD DATE: 03/25/252207 ASSESSMENT: Intractable nausea and vomiting for several days, POA Dehydration, POA Uncontrolled hyperglycemia with underlying history of type 2 diabetes mellitus, POA History of poorly controlled diabetes mellitus, POA Hypertensive urgency, POA History of abnormal MRCP findings with concerns benign CBD stricture, POA Rule out diabetic gastroparesis, POA Headache, POA PLAN: Intractable nausea and vomiting * Patient reports having vomited 6 times. * Started patient on IV hydration with LR at 100 mL/hour * GI consultation requested, patient has prior abnormal MRCP findings, liver function test is normal on labs today, we will keep patient on Protonix 40 daily * CT abdomen pelvis without contrast showed no acute intra-abdominal findings, it showed some mild CBD dilation which was already evaluated from MRCP previously * Consultation with dietitian will be requested to assist with further nutritional assessment/management * She still has episodes of nausea and vomiting. 03/25/25 * Will continue IV fluids (RL 100mls/hr) and Protonix 40mg IV once daily. Diabetic gastroparesis * Nuclear medicine gastric emptying study to assess for gastroparesis was done today morning. 03/24/25 * Consider prokinetic therapy if the results are positive * Metoclopramide 5mg TID has been started and will monitor the patient closely. 03/25/25 * Currently awaiting the Gastric Emptying test results. * Gastric emptying test was suggestive of gastroparesis. Her symptoms has still persisted hence Ringer's lactate has been increased to 200 mL/hour and m etoclopramide to 10 mg thrice daily. 03/26/25 * If the symptoms persist, we can start her on erythromycin to increase the gastric motility. Uncontrolled hyperglycemia with underlying history of diabetes mellitus * HbA1C level was 10.1 and glucose on presentation was 308. * Glutamic acid decarboxylase antibody test has been ordered.(Anti-NEISHA) * Patient on sliding scale insulin a.c. and HS * Lantus 15 units dose now for high blood sugar * Observe blood sugar trends in the next 24-48 hours, then adjust Lantus based on blood glucose trend, we will have Dr. Pepe with endocrinology optimize diabetes control * Anion gap has increased from 12 to 16. 9 Supportive measures * All labs will be repeated in the morning * Monitor closely for signs of ketosis or developing DKA, patient remains at risk of starvation ketoacidosis as well, we will keep patient on thiamine supplementation and multivitamins * IV fluids, electrolyte replacement as needed ATTESTATION BY PHYSICIAN I have seen and examined the patient. I reviewed the documentation, medical decision making, and treatment plan as noted by the resident provider above. I agree with the findings and plan of care. Sukhi Guillaume MD, SUZIT MD Mar 26, 2025 14:19
--- NOTE | 2025-03-26 16:50 | NUR ---
Nutritional Note: Chart, meds, and labs Reviewed. She reports being a diabetic for more than [address] educated pt in the past Recommend: -Advance diet when medically feasible to 60 gm cho +low fat diet - Electrolyte replacements per protocol -Monitor feeding tolerance, %, wt, and labs -Document PO intake and wt daily. -If No BM >3days consider bowel stimulant. -Consider appetite stimulant if intake remains <75%for 3 days. -Schedule outpatient RD f/u for long-term nutrition care. - Notify RD if additional nutrition concerns arise. SEE RD Nutritional Assessment for additional assessment information. Addendum: 03/26/25 at [address] Amended: Links added.
[2025-03-27] VITALS (22 sets, daily range): BP systolic 86–170; BP diastolic 54–97; PULSE 60–120; RESP 14–18; TEMP 97.2–99; O2SAT 98–99
[2025-03-27 05:54] LABS: NUCLEATED RED BLOOD CELLS 0.0 % (0.0-0.19); PLATELET COUNT (AUTO) 402.0 K/uL (130-400); RED BLOOD CELL COUNT(AUTO) 4.07 MIL/uL (4.00-5.50); RED CELL DISTRIBUTION WIDTH 14.4 % (11.0-15.5); WHITE BLOOD COUNT (AUTO) 5.7 K/uL (4.8-10.8)
[2025-03-27 06:05] LABS: CREATININE 0.3 mg/dL (0.5-1.0); GLOMERULAR FILTR. RATE CALC 140.0 mL/min (>90); GLUCOSE,RANDOM 101.0 mg/dL (70-105); SODIUM SERUM 137.0 mmol/L (136-145); UREA NITROGEN, BLOOD 10.0 mg/dL (7-18)
--- NOTE | 2025-03-27 09:29 | NUR ---
PATIENT TAKEN INTO PROCEDURE, ALERT AND ORIENTED X 4
[2025-03-27] MEDS: INDOMETHACIN 100 MG SUPP.RECT RC ONE (09:30)
[2025-03-27] MEDS ORDERED: IOHEXOL-350 50ML VIAL IV ONE ×2 (11:55→13:45)
[2025-03-27] MEDS ORDERED: GLYCOPYRROLATE 0.2 MG/ML 5 ML VIAL ONE (11:58)
[2025-03-27] MEDS ORDERED: NEOSTIGMINE METHYLSULFATE 1MG/ML IV ONE (12:01)
--- NOTE | 2025-03-27 13:08 | NUR ---
PATIENT RETURNED TO ROOM, ALERT AND ORIENTED X 4, REPORTS PAIN TO ABDOMEN OF 8/10. NO FAMILY AT BEDSIDE. REPORTS NAUSEA. REPORT PROVIDED BY [place] FROM PACU
--- NOTE | 2025-03-27 13:43 | PN ---
GASTROENTEROLOGY PROGRESS NOTE Date of Visit: Mar 27, 2025 Time of Visit: 13:42 Events / Notes: [ Patient underwent ERCP and was found to have minimally dilated duct with no filing defects nor strictures--likely chronic post cholecystectomy dilation. Patient had completed GES and it showed 50% gastric emptying not achieved during the period of study. Scintigraphic findings suggest gastroparesis. Patient resting in sf in no acute distress. Respirations are unlabored. She reports having abdominal pain with some control with pain medication. Oriented to poc and will repeat labs in am. Will start clear fluids. Patient v/u. Review of Systems: CONSTITUTIONAL: No malaise or change in sensation of wellbeing. ENMT: No rhinorrhea, CARDIOVASCULAR: No angina, palpitations, RESPIRATORY: No SOB.Respirations unlabored GASTROINTESTINAL: No abdominal pain, nausea, vomiting, diarrhea, hematemesis, melena or change in the patient's habitual bowel movements consistency/number. GENITOURINARY: No dysuria, hematuria or change in bladder continence. MUSCULOSKELETAL: No new muscle pain or decrease in muscular strength. No new joint swelling, redness or tenderness. SKIN: No new rash. Physical Exam: GEN: Awake, alert, oriented in person, time and place, and in no acute distress but reports pain HEENT: Oral mucosa moist. CHEST: Lung auscultation revealed normal breath sounds bilaterally. CARDIAC: Heart sounds are regular. ABD: Soft, tender to epigastric region, not distended. Normal bowel sounds. EXT: No cyanosis or clubbing. No edema. SKIN: Intact. No rashes. JOINTS: No evidence of synovitis or acute arthritis. NEURO: Alert and oriented to name, place and person. No focal motor deficits. Normal speech Vital Signs (last 8hr) Date Time Temp Pulse Resp B/P (MAP) Pulse Ox O2 Delivery O2 Flow Rate FiO2 03/27/25 13:05 97.3 76 14 147/82 98 Room Air 03/27/25 13:00 75 15 149/81 98 Room Air 03/27/25 12:55 75 15 153/81 98 Room Air 03/27/25 12:50 77 14 151/91 98 Room Air 03/27/25 12:45 77 15 152/82 98 Room Air 03/27/25 12:40 73 15 155/84 99 Room Air 03/27/25 12:35 71 14 135/88 100 Room Air 03/27/25 12:30 71 15 149/84 99 Room Air 03/27/25 12:25 70 15 142/80 99 Room Air 03/27/25 12:20 71 14 142/83 100 Nonrebreathing Mask 10.0 03/27/25 12:15 73 15 145/87 100 Nonrebreathing Mask 10.0 03/27/25 12:10 75 15 136/80 100 Nonrebreathing Mask 10.0 03/27/25 12:05 97.2 81 14 132/85 100 Nonrebreathing Mask 10.0 03/27/25 11:40 ET 7.0 03/27/25 11:40 ET 7.0 03/27/25 08:00 99 Room Air* 0 21 03/27/25 08:00 99.0 60 14 86/54 99 Room Air Laboratory: [ ] Laboratory: Test 03/27/25 12:49 03/27/25 05:30 03/26/25 07:26 03/25/25 16:14 Range/Units Whole Blood Glucose 150 #H 70-110 MG/DL White Blood Count 5.7 4.8-10.8 K/uL Red Blood Count 4.07 4.00-5.50 MIL/uL Hemoglobin 11.1 L 12.0-16.0 g/dL Hematocrit 33.7 L 36-48 % Mean Corpuscular Volume 82.8 79-99 fL Mean Corpuscular Hemoglobin 27.3 27.0-33.0 pg Mean Corpuscular Hemoglobin Concent 32.9 32.0-36.0 g/dL Red Cell Distribution Width 14.4 11.0-15.5 % Platelet Count 402 H 130-400 K/uL Mean Platelet Volume 10.2 7.5-10.5 fL Nucleated Red Blood Cells 0.0 0.0-0.19 % Sodium Level 137 136-145 mmol/L Potassium Level 3.5 3.5-5.1 mmol/L Chloride Level 104 101-111 mmol/L Carbon Dioxide Level 27 21-32 mmol/L Blood Urea Nitrogen 10 7-18 mg/dL Creatinine 0.3 L 0.5-1.0 mg/dL Glomerular Filtration Rate Calc 140 >90 mL/min Random Glucose 101 70-105 mg/dL Total Calcium 8.6 8.5-10.1 mg/dL Cortisol AM Sample 7.9 6.2-19.4 ug/dL Bedside Glucose Comment Notified Nurse Current Medications Medications (Trade) Dose Ordered Sig/Neva Route PRN Reason Start Time Stop Time Status Last Admin Dose Admin Acetaminophen (TYLenol 325MG TAB) 650 mg Q6H PRN PO MILD PAIN (1-3) 03/23/25 15:00 04/22/25 14:59 03/24/25 11:31 650 MG Dextrose (D50w) 50 ml AD PRN IV HYPOGLYCEMIA PROTOCOL 03/23/25 18:00 04/22/25 17:59 Enoxaparin Sodium (Lovenox) 40 mg DAILY SQ 03/24/25 09:00 04/23/25 08:59 03/26/25 07:39 40 MG Glucagon (Glucagon 1mg Kit) 1 mg AD PRN IM HYPOGLYCEMIA PROTOCOL 03/23/25 18:00 04/22/25 17:59 Hydralazine HCl (APRESOLine 20MG INJ) 5 mg Q6H PRN IV ADMINISTER FOR SBP > 160 03/23/25 15:00 04/22/25 14:59 03/24/25 23:29 5 MG Insulin Glargine (LANtus 100 UNITS/ML 10 ML VIAL) 15 units DAILY SQ 03/24/25 09:00 04/23/25 08:59 03/26/25 07:44 15 UNITS Insulin Human Regular (humuLIN R 100 UNIT/ML 3ML) INSULIN SLIDING SCAL... ACHS SQ 03/23/25 16:30 03/24/25 20:52 DC 03/24/25 18:16 2 UNIT Insulin Human Regular (humuLIN R 100 UNIT/ML 3ML) INSULIN SLIDING SCAL... ACHS SQ 03/24/25 21:00 04/23/25 20:59 03/25/25 12:09 2 UNIT Lactated Ringer's 1,000 ml @ 200 mls/hr Q5H IV 03/23/25 15:00 04/22/25 14:59 03/27/25 06:00 200 MLS/HR Magnesium Sulfate 50 ml @ 0 mls/hr PROTOCOL IV 03/23/25 15:30 04/22/25 15:29 03/25/25 00:26 25 MLS/HR Metoclopramide HCl (regLAN 5 MG TAB) 5 mg TIDAC PO 03/25/25 17:00 03/26/25 12:23 DC 03/26/25 12:21 5 MG Metoclopramide HCl (regLAN 5 MG TAB) 10 mg TIDAC PO 03/26/25 17:00 04/25/25 16:59 03/26/25 16:23 10 MG Morphine Sulfate (morPHINE 2MG SYG) 2 mg Q8H PRN IVP SEVERE PAIN (7-10) 03/23/25 15:30 03/30/25 15:29 03/27/25 13:16 2 MG Multivitamins Therapeutic (Multivitamin Tablet) 1 tab DAILY PO 03/24/25 09:00 04/23/25 08:59 03/26/25 07:38 1 TAB Pantoprazole Sodium (PROTonix 40MG INJ) 40 mg DAILY IVP 03/24/25 09:00 04/23/25 08:59 03/27/25 08:11 40 MG Potassium Chloride 100 ml @ 100 mls/hr AD PRN IV POTASSIUM PROTOCOL 03/23/25 15:30 04/22/25 15:29 03/25/25 06:47 100 MLS/HR Potassium Chloride (K-Dur/Klor-Con 20meq) 20 meq AD PRN PO POTASSIUM PROTOCOL 03/23/25 15:30 04/22/25 15:29 03/26/25 16:23 20 MEQ Potassium Chloride (KCl 10% Elixir 20meq/15ml) 20 meq AD PRN PO POTASSIUM PROTOCOL 03/23/25 15:30 04/22/25 15:29 Promethazine HCl (Phenergan) 25 mg Q6H PRN IM NAUSEA/VOMITING 03/23/25 15:00 04/22/25 14:59 03/26/25 01:29 25 MG Thiamine HCl (Vitamin B-1) 100 mg Q24H IVP 03/23/25 15:00 04/22/25 14:59 03/26/25 14:39 100 MG Diagnostics / Radiology: [COPY/PASTE HERE IF NO REPORTS PLEASE DELETE SECTION] Assessment: Abdominal pain Nausea and vomiting Dilated CBD Gastroparesis Type 2 DM ] Plan: Case discussed with Dr. Israel Gi prophylaxis with protonix 40mg IV bid Clear fluids and advance as tolerated Please call with questions, concerns, and change in clinical status Thank you for allowing us to be part of this patient's care. ] JULIETA CEDILLO NP Mar 27, 2025 13:43
--- NOTE | 2025-03-27 15:13 | PN ---
[facility] PROGRESS NOTE Date of Service: Mar 27, 2025 Time of Service: 15:04 SUBJECTIVE: This is a 39-year-old female with underlying history of poorly controlled type 2 diabetes mellitus (last hemoglobin A1c of 10.1 on 03/22/2025), hyperlipidemia, who presented to the ER for further evaluation on nonresolving nausea and vomiting. Patient was [place] [facility] [place] after she had presented with nausea and vomiting and dehydration. Patient left AMA yesterday while undergoing further evaluation. Patient states that symptoms continued to worsen and she reports having vomited 6 times today. She did not take any insulin today. She is currently being followed by GI and had MRCP done on which showed smoked tapering of the distal common bile duct with upstream dilatation of the CBD measuring 1 cm and mild central intrahepatic biliary dilation concerning for a benign stricture. Recommendations was for a [place] versus ERCP. Patient has not been able to follow up with GI as outpatient. She is unsure if she has had a gastric emptying study done for evaluation of gastroparesis previously. Her blood sugars remain poorly controlled and her last hemoglobin A1c was close to 10.1. She reports being a diabetic for more than 10 years. She reports having mild headache today. Denies any chest pain or shortness of breath otherwise. She is having moderate epigastric discomfort. She underwent CT of the abdomen pelvis without contrast yesterday which showed no acute intra-abdominal process. Mild CBD dilation was noted. On presentation to the hospital, patient was noted to be afebrile with T-max of 97.9 F, heart rate of 96, blood pressure 180/106. Labs on presentation showed WBC count of 5800, hemoglobin 11.6, platelet count of 846348. BMP showed sodium of 141, potassium 4.2, CO2 of 27, BUN of eight, creatinine of 0.3, blood glucose was noted to be 308, liver enzymes were noted to be normal. Cardiac panel showed normal troponin. Patient will be admitted for further treatment of nonresolving nausea and vomiting. She is agreeable on staying this admission. She will be started on IV fluids, blood sugars will be controlled, consultation with GI will be requested for further evaluation of abnormal MRCP results. Management of diabetes will be optimized and she will undergo further workup to rule out diabetic gastroparesis. Plan of care was discussed in detail with patient at bedside. 03/24/25 Patient was evaluated at the bedside. She is hemodynamically stable. She was well-oriented to time place and person. As per the patient she still was feeling nauseous but her vomiting has subsided. There are no other associated symptoms like fever, chills, constipation and diarrhea. Her HbA1c level is 10.1. Patient was admitted to the hospital 2 days ago but left AMA due to a family emergency. 03/25/25 Patient was evaluated at the bedside. She is hemodynamically stable. She was well-oriented to time place and person. She still has episodes of vomiting, 2 this morning and 5 episodes yesterday. She also has abdominal pain and mild tenderness. There are no other associated symptoms like fever, chills, shortness of breath. Her blood glucose has trended down from 308 to 155 today. 03/26/25 Patient was evaluated at the bedside. She is hemodynamically stable. She was well-oriented to time place and person. She still has episodes of vomiting, 1 this morning and 3 episodes yesterday. She also has abdominal pain. Gastric emptying test was suggestive of gastroparesis. Ringer's lactate has been increased to 200 mL/hour and metoclopramide to 10 mg thrice daily. 03/27/25 Patient was evaluated at the bedside this morning. She is hemodynamically st able. She was well-oriented to time place and person. Her symptoms have gradually subsided. She does not complain of nausea and vomiting. Patient underwent ERCP and was found to have minimally dilated duct with no filing defects nor strictures--likely chronic post cholecystectomy dilation. After the procedure, she reports abdominal pain 8/10. REVIEW OF SYSTEMS CONSTITUTIONAL: No fever, chills, or night sweats. NEUROLOGICAL: Denies headache, sensory and motor deficit. CARDIOVASCULAR: Denies any exertional angina, dyspnea on exertion, orthopnea, paroxysmal nocturnal dyspnea, palpitations. PULMONARY: Denies any shortness of breath, cough, phlegm/sputum, hemoptysis, pleuritic chest pain. GASTROINTESTINAL: Her symptoms are gradually subsiding. Abdominal pain 8/10 after the procedure. GENITOURINARY: Denies frequency, urgency, nocturia, hematuria or incontinence. PHYSICAL EXAM GENERAL APPEARANCE: The patient is alert, awake and oriented and bedbound. NEUROLOGICAL: No sensory and motor deficits. CHEST: Normal chest expansion. LUNGS: Normal vesicular breath sound. Absence of any rales, rhonchi or any wheezing. CARDIOVASCULAR: Regular. S1 and S2 normal. No appreciable rubs, murmurs or gallops. ABDOMEN: Soft and slightly tender abdomen. There is no rebound, voluntary guarding, or rigidity. GENITOURINARY: No suprapubic tenderness. No costovertebral angle tenderness. Vital Signs (last 8hr) Date Time Temp Pulse Resp B/P (MAP) Pulse Ox O2 Delivery O2 Flow Rate FiO2 03/27/25 13:30 86 15 158/85 99 Room Air 03/27/25 13:05 98.1 82 15 165/92 99 Room Air 03/27/25 13:05 97.3 76 14 147/82 98 Room Air 03/27/25 13:00 75 15 149/81 98 Room Air 03/27/25 12:55 75 15 153/81 98 Room Air 03/27/25 12:50 77 14 151/91 98 Room Air 03/27/25 12:45 77 15 152/82 98 Room Air 03/27/25 12:40 73 15 155/84 99 Room Air 03/27/25 12:35 71 14 135/88 100 Room Air 03/27/25 12:30 71 15 149/84 99 Room Air 03/27/25 12:25 70 15 142/80 99 Room Air 03/27/25 12:20 71 14 142/83 100 Nonrebreathing Mask 10.0 03/27/25 12:15 73 15 145/87 100 Nonrebreathing Mask 10.0 03/27/25 12:10 75 15 136/80 100 Nonrebreathing Mask 10.0 03/27/25 12:05 97.2 81 14 132/85 100 Nonrebreathing Mask 10.0 03/27/25 11:40 ET 7.0 03/27/25 11:40 ET 7.0 03/27/25 08:00 99 Room Air* 0 21 03/27/25 08:00 99.0 60 14 86/54 99 Room Air LABS: Laboratory: Test 03/27/25 12:49 03/27/25 05:30 03/26/25 07:26 03/25/25 16:14 Range/Units Whole Blood Glucose 150 #H 70-110 MG/DL White Blood Count 5.7 4.8-10.8 K/uL Red Blood Count 4.07 4.00-5.50 MIL/uL Hemoglobin 11.1 L 12.0-16.0 g/dL Hematocrit 33.7 L 36-48 % Mean Corpuscular Volume 82.8 79-99 fL Mean Corpuscular Hemoglobin 27.3 27.0-33.0 pg Mean Corpuscular Hemoglobin Concent 32.9 32.0-36.0 g/dL Red Cell Distribution Width 14.4 11.0-15.5 % Platelet Count 402 H 130-400 K/uL Mean Platelet Volume 10.2 7.5-10.5 fL Nucleated Red Blood Cells 0.0 0.0-0.19 % Sodium Level 137 136-145 mmol/L Potassium Level 3.5 3.5-5.1 mmol/L Chloride Level 104 101-111 mmol/L Carbon Dioxide Level 27 21-32 mmol/L Blood Urea Nitrogen 10 7-18 mg/dL Creatinine 0.3 L 0.5-1.0 mg/dL Glomerular Filtration Rate Calc 140 >90 mL/min Random Glucose 101 70-105 mg/dL Total Calcium 8.6 8.5-10.1 mg/dL Cortisol AM Sample 7.9 6.2-19.4 ug/dL Bedside Glucose Comment Notified Nurse Current Medications Medications (Trade) Dose Ordered Sig/Neva Route PRN Reason Start Time Stop Time Status Last Admin Dose Admin Acetaminophen (TYLenol 325MG TAB) 650 mg Q6H PRN PO MILD PAIN (1-3) 03/23/25 15:00 04/22/25 14:59 03/24/25 11:31 650 MG Dextrose (D50w) 50 ml AD PRN IV HYPOGLYCEMIA PROTOCOL 03/23/25 18:00 04/22/25 17:59 Enoxaparin Sodium (Lovenox) 40 mg DAILY SQ 03/24/25 09:00 04/23/25 08:59 03/26/25 07:39 40 MG Glucagon (Glucagon 1mg Kit) 1 mg AD PRN IM HYPOGLYCEMIA PROTOCOL 03/23/25 18:00 04/22/25 17:59 Hydralazine HCl (APRESOLine 20MG INJ) 5 mg Q6H PRN IV ADMINISTER FOR SBP > 160 03/23/25 15:00 04/22/25 14:59 03/24/25 23:29 5 MG Insulin Glargine (LANtus 100 UNITS/ML 10 ML VIAL) 15 units DAILY SQ 03/24/25 09:00 04/23/25 08:59 03/26/25 07:44 15 UNITS Insulin Human Regular (humuLIN R 100 UNIT/ML 3ML) INSULIN SLIDING SCAL... ACHS SQ 03/23/25 16:30 03/24/25 20:52 DC 03/24/25 18:16 2 UNIT Insulin Human Regular (humuLIN R 100 UNIT/ML 3ML) INSULIN SLIDING SCAL... ACHS SQ 03/24/25 21:00 04/23/25 20:59 03/25/25 12:09 2 UNIT Lactated Ringer's 1,000 ml @ 200 mls/hr Q5H IV 03/23/25 15:00 04/22/25 14:59 03/27/25 06:00 200 MLS/HR Magnesium Sulfate 50 ml @ 0 mls/hr PROTOCOL IV 03/23/25 15:30 04/22/25 15:29 03/25/25 00:26 25 MLS/HR Metoclopramide HCl (regLAN 5 MG TAB) 5 mg TIDAC PO 03/25/25 17:00 03/26/25 12:23 DC 03/26/25 12:21 5 MG Metoclopramide HCl (regLAN 5 MG TAB) 10 mg TIDAC PO 03/26/25 17:00 04/25/25 16:59 03/26/25 16:23 10 MG Morphine Sulfate (morPHINE 2MG SYG) 2 mg Q8H PRN IVP SEVERE PAIN (7-10) 03/23/25 15:30 03/30/25 15:29 03/27/25 13:16 2 MG Multivitamins Therapeutic (Multivitamin Tablet) 1 tab DAILY PO 03/24/25 09:00 04/23/25 08:59 03/26/25 07:38 1 TAB Pantoprazole Sodium (PROTonix 40MG INJ) 40 mg DAILY IVP 03/24/25 09:00 04/23/25 08:59 03/27/25 08:11 40 MG Potassium Chloride 100 ml @ 100 mls/hr AD PRN IV POTASSIUM PROTOCOL 03/23/25 15:30 04/22/25 15:29 03/25/25 06:47 100 MLS/HR Potassium Chloride (K-Dur/Klor-Con 20meq) 20 meq AD PRN PO POTASSIUM PROTOCOL 03/23/25 15:30 04/22/25 15:29 03/26/25 16:23 20 MEQ Potassium Chloride (KCl 10% Elixir 20meq/15ml) 20 meq AD PRN PO POTASSIUM PROTOCOL 03/23/25 15:30 04/22/25 15:29 Promethazine HCl (Phenergan) 25 mg Q6H PRN IM NAUSEA/VOMITING 03/23/25 15:00 04/22/25 14:59 03/26/25 01:29 25 MG Thiamine HCl (Vitamin B-1) 100 mg Q24H IVP 03/23/25 15:00 04/22/25 14:59 03/26/25 14:39 100 MG DIAGNOSTICS / RADIOLOGY: [ ] ASSESSMENT: Intractable nausea and vomiting for several days, POA Dehydration, POA Uncontrolled hyperglycemia with underlying history of type 2 diabetes mellitus, POA History of poorly controlled diabetes mellitus, POA Hypertensive urgency, POA History of abnormal MRCP findings with concerns benign CBD stricture, POA Rule out diabetic gastroparesis, POA Headache, POA PLAN: Intractable nausea and vomiting * Patient reports having vomited 6 times. * Started patient on IV hydration with LR at 100 mL/hour * GI consultation requested, patient has prior abnormal MRCP findings, liver function test is normal on labs today, we will keep patient on Protonix 40 daily * CT abdomen pelvis without contrast showed no acute intra-abdominal findings, it showed some mild CBD dilation which was already evaluated from MRCP previously * Consultation with dietitian will be requested to assist with further nutritional assessment/management * She still has episodes of nausea and vomiting. 03/25/25 * Will continue IV fluids (RL 100mls/hr) and Protonix 40mg IV once daily. CBD stricture, suspected * Patient underwent ERCP and was found to have minimally dilated duct with no filing defects nor strictures-likely chronic post cholecystectomy dilation. 03/27/25 * After the procedure, she reports abdominal pain 810. Diabetic gastroparesis * Nuclear medicine gastric emptying study to assess for gastroparesis was done today morning. 03/24/25 * Consider prokinetic therapy if the results are positive * Metoclopramide 5mg TID has been started and will monitor the patient closely. 03/25/25 * Currently awaiting the Gastric Emptying test results. * Gastric emptying test was suggestive of gastroparesis. Her symptoms has still persisted hence Ringer's lactate has been increased to 200 mL/hour and metoclopramide to 10 mg thrice daily. 03/26/25 * If the symptoms persist, we can start her on erythromycin to increase the gastric motility. Uncontrolled hyperglycemia with underlying history of diabetes mellitus * HbA1C level was 10.1 and glucose on presentation was 308. * Glutamic acid decarboxylase antibody test has been ordered.(Anti-NEISHA) * Patient on sliding scale insulin a.c. and HS * Lantus 15 units dose now for high blood sugar * Observe blood sugar trends in the next 24-48 hours, then adjust Lantus based on blood glucose trend, we will have Dr. Pepe with endocrinology optimize diabetes control * Anion gap has increased from 12 to 16. 03/26/25 * Anion gap is 6 today. 03/27/25 Supportive measures * All labs will be repeated in the morning * Monitor closely for signs of ketosis or developing DKA, patient remains at risk of starvation ketoacidosis as well, we will keep patient on thiamine supplementation and multivitamins * IV fluids, electrolyte replacement as needed ATTESTATION BY PHYSICIAN I have seen and examined the patient. I reviewed the documentation, medical decision making, and treatment plan as noted by the resident provider above. I agree with the findings and plan of care. Sukhi Guillaume MD ASHLI LLANOS MD Mar 27, 2025 15:13
[2025-03-28] VITALS (7 sets, daily range): BP systolic 102–161; BP diastolic 58–88; PULSE 79–119; RESP 15–18; TEMP 97.9–99; O2SAT 97–100
[2025-03-28 04:53] LABS: IMMATURE GRANULOCYTE ABSOLUTE 0.04 K/uL (0-1); NUCLEATED RED BLOOD CELLS 0.0 % (0.0-0.19); PLATELET COUNT (AUTO) 422 K/uL (130-400); RED BLOOD CELL COUNT(AUTO) 3.94 MIL/uL (4.00-5.50); RED CELL DISTRIBUTION WIDTH 13.9 % (11.0-15.5); WHITE BLOOD COUNT (AUTO) 7.6 K/uL (4.8-10.8)
[2025-03-28 05:13] LABS: ASPARTATE AMINOTRANSFERASE 178.0 U/L (10-37); CREATININE 0.3 mg/dL (0.5-1.0); GLOMERULAR FILTR. RATE CALC 140.0 mL/min (>90); GLUCOSE,RANDOM 130.0 mg/dL (70-105); SODIUM SERUM 132.0 mmol/L (136-145); TOTAL PROTEIN, SERUM 6.0 g/dL (6.0-8.3); UREA NITROGEN, BLOOD 7.0 mg/dL (7-18)
--- NOTE | 2025-03-28 10:38 | NUR ---
PER CEDILLO, PATIENT LIKELY NOT DISCHARGED TODAY UNTIL AST AND ALT BEGIN TRENDING DOWN AND PATIENT IS TOLERATING ADVANCEMENT IN DIET. Addendum: 03/28/25 at 1039 by MARY GRACE RODRIGUEZ RN RN Amended: Links added.
--- NOTE | 2025-03-28 14:59 | PN ---
GASTROENTEROLOGY PROGRESS NOTE Date of Visit: Mar 28, 2025 Time of Visit: 14:58 Events / Notes: [ Patient underwent ERCP and was found to have minimally dilated duct with no filing defects nor strictures--likely chronic post cholecystectomy dilation. Patient had completed GES and it showed 50% gastric emptying not achieved during the period of study. Scintigraphic findings suggest gastroparesis. Patient resting in sf in no acute distress. Respirations are unlabored. She reports having abdominal pain with some control with pain medication. Oriented to poc and will repeat labs in am. Will start clear fluids. Patient v/u. 03/28/25: WBC 7.6, hgb 10.8, platelets 422. Sodium 132, calcium 8.2, total bilirubin 0.9, AST 178, ALT 154. Lipase 14. VSS. Patient reports feeling slightly better. She reports having nausea and some vomiting today. Will repeat labs in am. Review of Systems: CONSTITUTIONAL: No malaise or change in sensation of wellbeing. ENMT: No rhinorrhea, CARDIOVASCULAR: No angina, palpitations, RESPIRATORY: No SOB.Respirations unlabored GASTROINTESTINAL: No abdominal pain, nausea, vomiting, diarrhea, hematemesis, melena or change in the patient's habitual bowel movements consistency/number. GENITOURINARY: No dysuria, hematuria or change in bladder continence. MUSCULOSKELETAL: No new muscle pain or decrease in muscular strength. No new joint swelling, redness or tenderness. SKIN: No new rash. Physical Exam: GEN: Awake, alert, oriented in person, time and place, and in no acute distress but reports pain HEENT: Oral mucosa moist. CHEST: Lung auscultation revealed normal breath sounds bilaterally. CARDIAC: Heart sounds are regular. ABD: Soft, tender to epigastric region, not distended. Normal bowel sounds. EXT: No cyanosis or clubbing. No edema. SKIN: Intact. No rashes. JOINTS: No evidence of synovitis or acute arthritis. NEURO: Alert and oriented to name, place and person. No focal motor deficits. Normal speech Vital Signs (last 8hr) Date Time Temp Pulse Resp B/P (MAP) Pulse Ox O2 Delivery O2 Flow Rate FiO2 03/28/25 12:00 98.6 98 15 141/72 96 Room Air 03/28/25 08:00 98.2 96 16 122/69 98 Room Air 03/28/25 07:35 97 Room Air* 0 21 Laboratory: [ ] Laboratory: Test 03/28/25 11:27 03/28/25 04:13 03/27/25 20:01 Range/Units Whole Blood Glucose 138 H 70-110 MG/DL White Blood Count 7.6 # 4.8-10.8 K/uL Red Blood Count 3.94 L 4.00-5.50 MIL/uL Hemoglobin 10.8 L 12.0-16.0 g/dL Hematocrit 32.4 L 36-48 % Mean Corpuscular Volume 82.2 79-99 fL Mean Corpuscular Hemoglobin 27.4 27.0-33.0 pg Mean Corpuscular Hemoglobin Concent 33.3 32.0-36.0 g/dL Red Cell Distribution Width 13.9 11.0-15.5 % Platelet Count 422 H 130-400 K/uL Mean Platelet Volume 10.5 7.5-10.5 fL Immature Granulocyte % (Auto) 0.5 0-1 % Neutrophils (%) (Auto) 63.6 40.0-77.0 % Lymphocytes (%) (Auto) 27.8 21.0-51.0 % Monocytes (%) (Auto) 7.8 3.0-13.0 % Eosinophils (%) (Auto) 0.0 0.0-8.0 % Basophils (%) (Auto) 0.3 0.0-5.0 % Neutrophils # (Auto) 4.8 1.8-7.7 K/uL Lymphocytes # (Auto) 2.1 1.0-4.8 K/uL Monocytes # (Auto) 0.6 0.1-1.0 K/uL Eosinophils # (Auto) 0.00 0.00-0.70 K/uL Basophils # (Auto) 0.02 0.00-0.20 K/uL Absolute Immature Granulocyte (auto 0.04 0-1 K/uL Nucleated Red Blood Cells 0.0 0.0-0.19 % Sodium Level 132 L 136-145 mmol/L Potassium Level 3.8 3.5-5.1 mmol/L Chloride Level 102 101-111 mmol/L Carbon Dioxide Level 17 L 21-32 mmol/L Blood Urea Nitrogen 7 7-18 mg/dL Creatinine 0.3 L 0.5-1.0 mg/dL Glomerular Filtration Rate Calc 140 >90 mL/min Random Glucose 130 H 70-105 mg/dL Total Calcium 8.2 L 8.5-10.1 mg/dL Total Bilirubin 0.9 0.2-1.0 mg/dL Aspartate Amino Transf (AST/SGOT) 178 H 10-37 U/L Alanine Aminotransferase (ALT/SGPT) 154 H 12-78 U/L Alkaline Phosphatase 133 50-136 U/L Total Protein 6.0 6.0-8.3 g/dL Albumin 2.8 L 3.5-5.0 g/dL Lipase 15 L 16-77 U/L Bedside Glucose Comment Notified Nurse Current Medications Medications (Trade) Dose Ordered Sig/Neva Route PRN Reason Start Time Stop Time Status Last Admin Dose Admin Acetaminophen (TYLenol 325MG TAB) 650 mg Q6H PRN PO MILD PAIN (1-3) 03/23/25 15:00 03/28/25 07:40 DC 03/27/25 18:07 650 MG Dextrose (D50w) 50 ml AD PRN IV HYPOGLYCEMIA PROTOCOL 03/23/25 18:00 04/22/25 17:59 Enoxaparin Sodium (Lovenox) 40 mg DAILY SQ 03/24/25 09:00 04/23/25 08:59 03/28/25 09:29 40 MG Glucagon (Glucagon 1mg Kit) 1 mg AD PRN IM HYPOGLYCEMIA PROTOCOL 03/23/25 18:00 04/22/25 17:59 Hydralazine HCl (APRESOLine 20MG INJ) 5 mg Q6H PRN IV ADMINISTER FOR SBP > 160 03/23/25 15:00 04/22/25 14:59 03/27/25 20:47 5 MG Insulin Glargine (LANtus 100 UNITS/ML 10 ML VIAL) 15 units DAILY SQ 03/24/25 09:00 04/23/25 08:59 03/28/25 09:38 15 UNITS Insulin Human Regular (humuLIN R 100 UNIT/ML 3ML) INSULIN SLIDING SCAL... ACHS SQ 03/23/25 16:30 03/24/25 20:52 DC 03/24/25 18:16 2 UNIT Insulin Human Regular (humuLIN R 100 UNIT/ML 3ML) INSULIN SLIDING SCAL... ACHS SQ 03/24/25 21:00 04/23/25 20:59 03/27/25 20:50 2 UNIT Lactated Ringer's 1,000 ml @ 200 mls/hr Q5H IV 03/23/25 15:00 04/22/25 14:59 03/28/25 09:46 200 MLS/HR Magnesium Sulfate 50 ml @ 0 mls/hr PROTOCOL IV 03/23/25 15:30 04/22/25 15:29 03/25/25 00:26 25 MLS/HR Metoclopramide HCl (regLAN 5 MG TAB) 5 mg TIDAC PO 03/25/25 17:00 03/26/25 12:23 DC 03/26/25 12:21 5 MG Metoclopramide HCl (regLAN 5 MG TAB) 10 mg TIDAC PO 03/26/25 17:00 04/25/25 16:59 03/28/25 12:10 10 MG Morphine Sulfate (morPHINE 2MG SYG) 2 mg Q8H PRN IVP SEVERE PAIN (7-10) 03/23/25 15:30 03/30/25 15:29 03/28/25 09:42 2 MG Multivitamins Therapeutic (Multivitamin Tablet) 1 tab DAILY PO 03/24/25 09:00 04/23/25 08:59 03/28/25 09:28 1 TAB Pantoprazole Sodium (PROTonix 40MG INJ) 40 mg DAILY IVP 03/24/25 09:00 04/23/25 08:59 03/28/25 09:28 40 MG Potassium Chloride 100 ml @ 100 mls/hr AD PRN IV POTASSIUM PROTOCOL 03/23/25 15:30 04/22/25 15:29 03/25/25 06:47 100 MLS/HR Potassium Chloride (K-Dur/Klor-Con 20meq) 20 meq AD PRN PO POTASSIUM PROTOCOL 03/23/25 15:30 04/22/25 15:29 03/28/25 12:10 20 MEQ Potassium Chloride (KCl 10% Elixir 20meq/15ml) 20 meq AD PRN PO POTASSIUM PROTOCOL 03/23/25 15:30 04/22/25 15:29 Promethazine HCl (Phenergan) 25 mg Q6H PRN IM NAUSEA/VOMITING 03/23/25 15:00 04/22/25 14:59 03/28/25 12:11 25 MG Thiamine HCl (Vitamin B-1) 100 mg Q24H IVP 03/23/25 15:00 04/22/25 14:59 03/28/25 14:48 100 MG Diagnostics / Radiology: [COPY/PASTE HERE IF NO REPORTS PLEASE DELETE SECTION] Assessment: Abdominal pain Nausea and vomiting Dilated CBD Gastroparesis Type 2 DM ] Plan: Case discussed with Dr. Israel Gi prophylaxis with protonix 40mg IV bid Clear fluids and advance as tolerated Repeat cbc, cmp, lipase in am. Will sign off if lfts trend downward. Please call with questions, concerns, and change in clinical status Thank you for allowing us to be part of this patient's care. ] JULIETA CEDILLO NP Mar 28, 2025 14:59
--- NOTE | 2025-03-28 17:05 | PN ---
[facility] PROGRESS NOTE Date of Service: Mar 28, 2025 Time of Service: 16:36 SUBJECTIVE: This is a 39-year-old female with underlying history of poorly controlled type 2 diabetes mellitus (last hemoglobin A1c of 10.1 on 03/22/2025), hyperlipidemia, who presented to the ER for further evaluation on nonresolving nausea and vomiting. Patient was [place] [facility] [place] after she had presented with nausea and vomiting and dehydration. Patient left AMA yesterday while undergoing further evaluation. Patient states that symptoms continued to worsen and she reports having vomited 6 times today. She did not take any insulin today. She is currently being followed by GI and had MRCP done on which showed smoked tapering of the distal common bile duct with upstream dilatation of the CBD measuring 1 cm and mild central intrahepatic biliary dilation concerning for a benign stricture. Recommendations was for a [place] versus ERCP. Patient has not been able to follow up with GI as outpatient. She is unsure if she has had a gastric emptying study done for evaluation of gastroparesis previously. Her blood sugars remain poorly controlled and her last hemoglobin A1c was close to 10.1. She reports being a diabetic for more than 10 years. She reports having mild headache today. Denies any chest pain or shortness of breath otherwise. She is having moderate epigastric discomfort. She underwent CT of the abdomen pelvis without contrast yesterday which showed no acute intra-abdominal process. Mild CBD dilation was noted. On presentation to the hospital, patient was noted to be afebrile with T-max of 97.9 F, heart rate of 96, blood pressure 180/106. Labs on presentation showed WBC count of 5800, hemoglobin 11.6, platelet count of [id number]. BMP showed sodium of 141, potassium 4.2, CO2 of 27, BUN of eight, creatinine of 0.3, blood glucose was noted to be 308, liver enzymes were noted to be normal. Cardiac panel showed normal troponin. Patient will be admitted for further treatment of nonresolving nausea and vomiting. She is agreeable on staying this admission. She will be started on IV fluids, blood sugars will be controlled, consultation with GI will be requested for further evaluation of abnormal MRCP results. Management of diabetes will be optimized and she will undergo further workup to rule out diabetic gastroparesis. Plan of care was discussed in detail with patient at bedside. 03/24/25 Patient was evaluated at the bedside. She is hemodynamically stable. She was well-oriented to time place and person. As per the patient she still was feeling nauseous but her vomiting has subsided. There are no other associated symptoms like fever, chills, constipation and diarrhea. Her HbA1c level is 10.1. Patient was admitted to the hospital 2 days ago but left AMA due to a family emergency. 03/25/25 Patient was evaluated at the bedside. She is hemodynamically stable. She was well-oriented to time place and person. She still has episodes of vomiting, 2 this morning and 5 episodes yesterday. She also has abdominal pain and mild tenderness. There are no other associated symptoms like fever, chills, shortness of breath. Her blood glucose has trended down from 308 to 155 today. 03/26/25 Patient was evaluated at the bedside. She is hemodynamically stable. She was well-oriented to time place and person. She still has episodes of vomiting, 1 this morning and 3 episodes yesterday. She also has abdominal pain. Gastric emptying test was suggestive of gastroparesis. Ringer's lactate has been increased to 200 mL/hour and metoclopramide to 10 mg thrice daily. 03/27/25 Patient was evaluated at the bedside this morning. She is hemodynamically st able. She was well-oriented to time place and person. Her symptoms have gradually subsided. She does not complain of nausea and vomiting. Patient underwent ERCP and was found to have minimally dilated duct with no filing defects nor strictures--likely chronic post cholecystectomy dilation. After the procedure, she reports abdominal pain 10. 03/28/25 Patient was evaluated at the bedside this morning. She is hemodynamically stable. She was well-oriented to time place and person. She doesn't complain of nausea and vomiting. She has been started on GI soft diet and tolerating well. Her liver function tests results were deranged, AST 178 and ALT 154, ALP 133. As per the surgery, discharge recommendations can be made only after the LFTs trend downward. REVIEW OF SYSTEMS CONSTITUTIONAL: No fever, chills, or night sweats. NEUROLOGICAL: Denies headache, sensory and motor deficit. CARDIOVASCULAR: Denies any exertional angina, dyspnea on exertion, orthopnea, paroxysmal nocturnal dyspnea, palpitations. PULMONARY: Denies any shortness of breath, cough, phlegm/sputum, hemoptysis, pleuritic chest pain. GASTROINTESTINAL: Her symptoms are gradually subsiding. Denies Nausea and vomiting GENITOURINARY: Denies frequency, urgency, nocturia, hematuria or incontinence. PHYSICAL EXAM GENERAL APPEARANCE: The patient is alert, awake and oriented and bedbound. NEUROLOGICAL: No sensory and motor deficits. CHEST: Normal chest expansion. LUNGS: Normal vesicular breath sound. Absence of any rales, rhonchi or any wheezing. CARDIOVASCULAR: Regular. S1 and S2 normal. No appreciable rubs, murmurs or g allops. ABDOMEN: Soft and non-tender. There is no rebound, voluntary guarding, or rigidity. GENITOURINARY: No suprapubic tenderness. No costovertebral angle tenderness. Vital Signs (last 8hr) Date Time Temp Pulse Resp B/P (MAP) Pulse Ox O2 Delivery O2 Flow Rate FiO2 03/28/25 16:00 99.0 83 15 111/58 95 Room Air 03/28/25 12:00 98.6 98 15 141/72 96 Room Air LABS: Laboratory: Test 03/28/25 15:21 03/28/25 04:13 03/27/25 20:01 Range/Units Whole Blood Glucose 193 H 70-110 MG/DL White Blood Count 7.6 # 4.8-10.8 K/uL Red Blood Count 3.94 L 4.00-5.50 MIL/uL Hemoglobin 10.8 L 12.0-16.0 g/dL Hematocrit 32.4 L 36-48 % Mean Corpuscular Volume 82.2 79-99 fL Mean Corpuscular Hemoglobin 27.4 27.0-33.0 pg Mean Corpuscular Hemoglobin Concent 33.3 32.0-36.0 g/dL Red Cell Distribution Width 13.9 11.0-15.5 % Platelet Count 422 H 130-400 K/uL Mean Platelet Volume 10.5 7.5-10.5 fL Immature Granulocyte % (Auto) 0.5 0-1 % Neutrophils (%) (Auto) 63.6 40.0-77.0 % Lymphocytes (%) (Auto) 27.8 21.0-51.0 % Monocytes (%) (Auto) 7.8 3.0-13.0 % Eosinophils (%) (Auto) 0.0 0.0-8.0 % Basophils (%) (Auto) 0.3 0.0-5.0 % Neutrophils # (Auto) 4.8 1.8-7.7 K/uL Lymphocytes # (Auto) 2.1 1.0-4.8 K/uL Monocytes # (Auto) 0.6 0.1-1.0 K/uL Eosinophils # (Auto) 0.00 0.00-0.70 K/uL Basophils # (Auto) 0.02 0.00-0.20 K/uL Absolute Immature Granulocyte (auto 0.04 0-1 K/uL Nucleated Red Blood Cells 0.0 0.0-0.19 % Sodium Level 132 L 136-145 mmol/L Potassium Level 3.8 3.5-5.1 mmol/L Chloride Level 102 101-111 mmol/L Carbon Dioxide Level 17 L 21-32 mmol/L Blood Urea Nitrogen 7 7-18 mg/dL Creatinine 0.3 L 0.5-1.0 mg/dL Glomerular Filtration Rate Calc 140 >90 mL/min Random Glucose 130 H 70-105 mg/dL Total Calcium 8.2 L 8.5-10.1 mg/dL Total Bilirubin 0.9 0.2-1.0 mg/dL Aspartate Amino Transf (AST/SGOT) 178 H 10-37 U/L Alanine Aminotransferase (ALT/SGPT) 154 H 12-78 U/L Alkaline Phosphatase 133 50-136 U/L Total Protein 6.0 6.0-8.3 g/dL Albumin 2.8 L 3.5-5.0 g/dL Lipase 15 L 16-77 U/L Bedside Glucose Comment Notified Nurse Current Medications Medications (Trade) Dose Ordered Sig/Neva Route PRN Reason Start Time Stop Time Status Last Admin Dose Admin Acetaminophen (TYLenol 325MG TAB) 650 mg Q6H PRN PO MILD PAIN (1-3) 03/23/25 15:00 03/28/25 07:40 DC 03/27/25 18:07 650 MG Dextrose (D50w) 50 ml AD PRN IV HYPOGLYCEMIA PROTOCOL 03/23/25 18:00 04/22/25 17:59 Enoxaparin Sodium (Lovenox) 40 mg DAILY SQ 03/24/25 09:00 04/23/25 08:59 03/28/25 09:29 40 MG Glucagon (Glucagon 1mg Kit) 1 mg AD PRN IM HYPOGLYCEMIA PROTOCOL 03/23/25 18:00 04/22/25 17:59 Hydralazine HCl (APRESOLine 20MG INJ) 5 mg Q6H PRN IV ADMINISTER FOR SBP > 160 03/23/25 15:00 04/22/25 14:59 03/27/25 20:47 5 MG Insulin Glargine (LANtus 100 UNITS/ML 10 ML VIAL) 15 units DAILY SQ 03/24/25 09:00 04/23/25 08:59 03/28/25 09:38 15 UNITS Insulin Human Regular (humuLIN R 100 UNIT/ML 3ML) INSULIN SLIDING SCAL... ACHS SQ 03/23/25 16:30 03/24/25 20:52 DC 03/24/25 18:16 2 UNIT Insulin Human Regular (humuLIN R 100 UNIT/ML 3ML) INSULIN SLIDING SCAL... ACHS SQ 03/24/25 21:00 04/23/25 20:59 03/28/25 16:14 2 UNIT Lactated Ringer's 1,000 ml @ 200 mls/hr Q5H IV 03/23/25 15:00 04/22/25 14:59 03/28/25 09:46 200 MLS/HR Magnesium Sulfate 50 ml @ 0 mls/hr PROTOCOL IV 03/23/25 15:30 04/22/25 15:29 03/25/25 00:26 25 MLS/HR Metoclopramide HCl (regLAN 5 MG TAB) 5 mg TIDAC PO 03/25/25 17:00 03/26/25 12:23 DC 03/26/25 12:21 5 MG Metoclopramide HCl (regLAN 5 MG TAB) 10 mg TIDAC PO 03/26/25 17:00 04/25/25 16:59 03/28/25 16:12 10 MG Morphine Sulfate (morPHINE 2MG SYG) 2 mg Q8H PRN IVP SEVERE PAIN (7-10) 03/23/25 15:30 03/30/25 15:29 03/28/25 09:42 2 MG Multivitamins Therapeutic (Multivitamin Tablet) 1 tab DAILY PO 03/24/25 09:00 04/23/25 08:59 03/28/25 09:28 1 TAB Pantoprazole Sodium (PROTonix 40MG INJ) 40 mg DAILY IVP 03/24/25 09:00 04/23/25 08:59 03/28/25 09:28 40 MG Potassium Chloride 100 ml @ 100 mls/hr AD PRN IV POTASSIUM PROTOCOL 03/23/25 15:30 04/22/25 15:29 03/25/25 06:47 100 MLS/HR Potassium Chloride (K-Dur/Klor-Con 20meq) 20 meq AD PRN PO POTASSIUM PROTOCOL 03/23/25 15:30 04/22/25 15:29 03/28/25 12:10 20 MEQ Potassium Chloride (KCl 10% Elixir 20meq/15ml) 20 meq AD PRN PO POTASSIUM PROTOCOL 03/23/25 15:30 04/22/25 15:29 Promethazine HCl (Phenergan) 25 mg Q6H PRN IM NAUSEA/VOMITING 03/23/25 15:00 04/22/25 14:59 03/28/25 12:11 25 MG Thiamine HCl (Vitamin B-1) 100 mg Q24H IVP 03/23/25 15:00 04/22/25 14:59 03/28/25 14:48 100 MG DIAGNOSTICS / RADIOLOGY: [ ] ASSESSMENT: Intractable nausea and vomiting for several days, POA Dehydration, POA Transaminitis Uncontrolled hyperglycemia with underlying history of type 2 diabetes mellitus, POA History of poorly controlled diabetes mellitus, POA Hypertensive urgency, POA History of abnormal MRCP findings with concerns benign CBD stricture, POA Rule out diabetic gastroparesis, POA Headache, POA PLAN: Intractable nausea and vomiting * Patient reports having vomited 6 times. * Started patient on IV hydration with LR at 100 mL/hour * GI consultation requested, patient has prior abnormal MRCP findings, liver function test is normal on labs today, we will keep patient on Protonix 40 daily * CT abdomen pelvis without contrast showed no acute intra-abdominal findings, it showed some mild CBD dilation which was already evaluated from MRCP previously * Consultation with dietitian will be requested to assist with further nutritional assessment/management * She still has episodes of nausea and vomiting. 03/25/25 * Will continue IV fluids (RL 100mls/hr) and Protonix 40mg IV once daily. * She has been started on GI soft diet and tolerating well. 03/28/25 CBD stricture, suspected * Patient underwent ERCP and was found to have minimally dilated duct with no filing defects nor strictures-likely chronic post cholecystectomy dilation. 03/27/25 * After the procedure, she reports abdominal pain 02/10. Transaminitis * She had ERCP procedure done. 03/27/25 * Her liver function tests results were deranged, AST 178, ALT 154 and ALP 133. As per the surgery, discharge recommendations can be made only after the LFTs trend downward. 03/28/25 Diabetic gastroparesis * Nuclear medicine gastric emptying study to assess for gastroparesis was done today morning. 03/24/25 * Consider prokinetic therapy if the results are positive * Metoclopramide 5mg TID has been started and will monitor the patient closely. 03/25/25 * Currently awaiting the Gastric Emptying test results. * Gastric emptying test was suggestive of gastroparesis. Her symptoms has still persisted hence Ringer's lactate has been increased to 200 mL/hour and metoclopramide to 10 mg thrice daily. 03/26/25 * If the symptoms persist, we can start her on erythromycin to increase the gastric motility. Uncontrolled hyperglycemia with underlying history of diabetes mellitus * HbA1C level was 10.1 and glucose on presentation was 308. * Glutamic acid decarboxylase antibody test has been ordered.(Anti-NEISHA) * Patient on sliding scale insulin a.c. and HS * Lantus 15 units dose now for high blood sugar * Observe blood sugar trends in the next 24-48 hours, then adjust Lantus based on blood glucose trend, we will have Dr. Pepe with endocrinology optimize diabetes control * Anion gap has increased from 12 to 16. 03/26/25 * Anion gap is 6 today. 03/27/25 Supportive measures * All labs will be repeated in the morning * Monitor closely for signs of ketosis or developing DKA, patient remains at risk of starvation ketoacidosis as well, we will keep patient on thiamine supplementation and multivitamins * IV fluids, electrolyte replacement as needed ATTESTATION BY PHYSICIAN I have seen and examined the patient. I reviewed the documentation, medical decision making, and treatment plan as noted by the resident provider above. I agree with the findings and plan of care. ROSANNA VALENZUELA [facility] MD Mar 28, 2025 17:05
--- NOTE | 2025-03-28 22:11 | PN ---
Endocrinology progress note DOS: 03/28/25 subjective: gastric emptying study was consistent with gastroparesis. Home diabetic regimen: novolin 70/30 insulin 20 units am and 10 units pm Hba1c 10.4%, glucose are improving. zinc transporter 8 abs, NEISHA-65 and islet cell abs are negative. DIAGNOSTICS / RADIOLOGY: SERVICE [id number] REASON: intactable nausea and vomiting ORDERING PHYSICIAN: ALON RONDON APRN PROCEDURE: ABD PEL WO - CT ABDOMEN/PELVIS W/O CONTRAST EXAM: CT Abdomen and Pelvis without IV contrast CLINICAL HISTORY: Intractable nausea and vomiting. TECHNIQUE: Noncontrast thin collimated axial CT images of the abdomen and pelvis were obtained with sagittal and coronal reformatted images also submitted. CT scan is done according to ALARA (As Low As Reasonably Achievable). COMPARISON: CT abdomen and pelvis dated 01/26/2025. CONTRAST: None. FINDINGS: Mild dependent atelectasis in the bilateral lung bases. Status post cholecystectomy. Mildly dilated CBD measures up to 1 cm in diameter. No focal abnormality within the liver, pancreas, spleen, adrenals, or kidneys. Grossly unremarkable urinary bladder. The uterus and ovaries are within normal limits. No bowel wall thickening, dilatation, or obstruction. Unremarkable appendix. Grossly unremarkable abdominal vessels. No pathological lymphadenopathy in the abdomen or pelvis. No ascites or pneumoperitoneum. No acute bony abnormality. Degenerative osseous changes. 0.7 cm sclerotic focus in the left proximal femur, likely bony island. IMPRESSIONS: No acute process in the abdomen or pelvis. Status post cholecystectomy. Mildly dilated CBD, which could be secondary to postcholecystectomy physiological changes. Further evaluation with MRCP may be done if there is a clinical suspicion of biliary obstruction. Compared to the prior study, there is no significant interval change. /[place] DICTATED BY: LOBITO CLAIRE MD DATE: 03/23/25734 ELECTRONICALLY SIGNED BY: LOBITO CLAIRE MD DATE: 03/23/25734 SERVICE 1037 REASON: EPIGASTRIC PAIN ORDERING PHYSICIAN: NINO VIDAL MD PROCEDURE: MRCP WWO - MRCP(ABDWWO)CHOLANGIOPANCREATO EXAM: MR Abdomen including MRCP with and without Intravenous Contrast CLINICAL HISTORY: Patient presents with epigastric pain. TECHNIQUE: Multisequence, multiplanar magnetic resonance images of the abdomen with intravenous contrast. CONTRAST: With intravenous contrast. COMPARISON: 03/02/2025. FINDINGS: LOWER THORAX: No pleural effusion. LIVER: Diffuse hepatic steatosis. No focal lesion. GALLBLADDER AND BILE DUCTS: Gallbladder surgically absent. Smooth tapering of the distal common bile duct with upstream dilated common bile duct measuring up to 1.0 cm and mild central intrahepatic biliary radical dilatation. No choledocholithiasis. PANCREAS: Unremarkable. No ductal dilation. SPLEEN: Unremarkable. ADRENALS: Unremarkable. KIDNEYS: 0.8 cm simple cortical cyst in the left renal lower pole. No hydronephrosis or mass. STOMACH AND BOWEL: No acute process demonstrated on limited evaluation. LYMPH NODES: No lymphadenopathy. VASCULATURE: No abdominal aortic aneurysm. IMPRESSION: Diffuse hepatic steatosis. Status post cholecystectomy. Smooth tapering of the distal common bile duct with upstream dilatation of the common bile duct measuring 1.0 cm and mild central intrahepatic biliary dilatation, may represent a benign stricture. Simple cortical cyst in the left kidney lower pole. Recommendation: Correlation with liver function tests and further evaluation with endoscopic ultrasound (EUS) or ERCP for distal common bile duct assessment. /[place] DICTATED BY: LICHA RUDOLPH Jr., MD DATE: 03/05/251557 ELECTRONICALLY SIGNED BY: LICHA RUDOLPH Jr., MD DATE: 03/05/251557 REVIEW OF SYSTEMS 12-point ROS reviewed with the patient. All pertinent positives mentioned above. Otherwise negative, noncontributory, nonpertinent. PAST MEDICAL HISTORY: As mentioned above PAST SURGICAL HISTORY: Cholecystectomy, , tubal ligation PAST SOCIAL HISTORY: Denied alcohol, tobacco, illicit drug use FAMILY HISTORY: Noncontributory Coded Allergies: No Known Drug Allergies (Unverified Allergy, Unknown, 10/02/15) ASSESSMENT: uncontrolled dm-2,POA glucose are high, so insulin adjusted. Home diabetic regimen: novolin 70/30 insulin 20 units am and 10 units pm Hba1c 10.4%, glucose are improving. Intractable nausea and vomiting for several days, POA improved am cortisol was 7.9 Dehydration, POA improved Hypertensive urgency, POA History of abnormal MRCP findings with concerns benign CBD stricture, POA likely diabetic gastroparesis, POA gastric emptying study is done. gastric emptying study is completed to rule out gastroparesis. Headache, POA PLAN: continue lantus 15 units daily and adjust for fasting glucose. start regular insulin 5 units tid before meals if daytime hyperglycemia. continue medium dose sliding scale insulin. Monitor glucose q x 6 hourly. Continue carb consistent diet. Keep glucose less than 180 mg/dl. Vitals/Labs Vital Signs Date Time Temp Pulse Resp B/P (MAP) Pulse Ox O2 Delivery O2 Flow Rate FiO2 03/28/25 20:00 98.1 94 18 161/88 100 Room Air 03/28/25 07:35 0 21 Laboratory Tests 03/28/25 04:13 Medications Current Medications Sodium Chloride 1,000 ml @ 0 mls/hr ONCE ONCE IV Last administered on 03/23/25at 12:47; Start 03/23/25 at 12:30; Stop 03/23/25 at 12:31; Status DC Ondansetron HCl 4 mg ONCE ONCE IVP Last administered on 03/23/25at 12:47; Start 03/23/25 at 12:30; Stop 03/23/25 at 12:31; Status DC Pantoprazole Sodium 40 mg ONCE ONCE IVP Last administered on 03/23/25at 12:47; Start 03/23/25 at 12:30; Stop 03/23/25 at 12:31; Status DC Morphine Sulfate 4 mg ONCE ONCE IVP Last administered on 03/23/25at 14:34; Start 03/23/25 at 13:00; Stop 03/23/25 at 13:01; Status DC Lactated Ringer's 1,000 ml @ 200 mls/hr Q5H IV Last administered on 03/28/25at 09:46; Start 03/23/25 at 15:00; Stop 04/22/25 at 14:59 Insulin Glargine 12 units ONCE ONCE SQ Last administered on 03/23/25at 16:04; Start 03/23/25 at 15:00; Stop 03/23/25 at 15:01; Status DC Insulin Human Regular INSULIN SLIDING SCAL... ACHS SQ Last administered on 03/24/25at 18:16; Start 03/23/25 at 16:30; Stop 03/24/25 at 20:52; Status DC Acetaminophen 650 mg Q6H PRN PO Last administered on 03/27/25at 18:07; Start 03/23/25 at 15:00; Stop 03/28/25 at 07:40; Status DC Promethazine HCl 25 mg Q6H PRN IM Last administered on 03/28/25at 12:11; Start 03/23/25 at 15:00; Stop 04/22/25 at 14:59 Pantoprazole Sodium 40 mg DAILY IVP Last administered on 03/28/25at 09:28; Start 03/24/25 at 09:00; Stop 04/23/25 at 08:59 Thiamine HCl 100 mg Q24H IVP Last administered on 03/28/25at 14:48; Start 03/23/25 at 15:00; Stop 04/22/25 at 14:59 Multivitamins Therapeutic 1 tab DAILY PO Last administered on 03/28/25at 09:28; Start 03/24/25 at 09:00; Stop 04/23/25 at 08:59 Hydralazine HCl 5 mg Q6H PRN IV Last administered on 03/27/25at 20:47; Start 03/23/25 at 15:00; Stop 04/22/25 at 14:59 Magnesium Sulfate 50 ml @ 0 mls/hr PROTOCOL IV Last administered on 03/25/25at 00:26; Start 03/23/25 at 15:30; Stop 04/22/25 at 15:29 Potassium Chloride 100 ml @ 100 mls/hr AD PRN IV Last administered on 03/25/25at 06:47; Start 03/23/25 at 15:30; Stop 04/22/25 at 15:29 Potassium Chloride 20 meq AD PRN PO; Start 03/23/25 at 15:30; Stop 04/22/25 at 15:29 Potassium Chloride 20 meq AD PRN PO Last administered on 03/28/25at 12:10; Start 03/23/25 at 15:30; Stop 04/22/25 at 15:29 Morphine Sulfate 2 mg Q8H PRN IVP Last administered on 03/28/25at 17:50; Start 03/23/25 at 15:30; Stop 03/28/25 at 18:29; Status DC Insulin Glargine 15 units DAILY SQ Last administered on 03/28/25at 09:38; Start 03/24/25 at 09:00; Stop 04/23/25 at 08:59 Dextrose 50 ml AD PRN IV; Start 03/23/25 at 18:00; Stop 04/22/25 at 17:59 Glucagon 1 mg AD PRN IM; Start 03/23/25 at 18:00; Stop 04/22/25 at 17:59 Enoxaparin Sodium 40 mg DAILY SQ Last administered on 03/28/25at 09:29; Start 03/24/25 at 09:00; Stop 04/23/25 at 08:59 Insulin Human Regular INSULIN SLIDING SCAL... ACHS SQ Last administered on 03/28/25at 20:40; Start 03/24/25 at 21:00; Stop 04/23/25 at 20:59 Metoclopramide HCl 5 mg TIDAC PO Last administered on 03/26/25at 12:21; Start 03/25/25 at 17:00; Stop 03/26/25 at 12:23; Status DC Metoclopramide HCl 10 mg TIDAC PO Last administered on 03/28/25at 16:12; Start 03/26/25 at 17:00; Stop 04/25/25 at 16:59; Status Hold Indomethacin 100 mg ONCE ONCE RC; Start 03/27/25 at 09:30; Stop 03/27/25 at 09:31; Status DC Rocuronium [place] 50 mg STK-MED ONCE .ROUTE; Start 03/27/25 at 11:12; Stop 03/27/25 at 11:12; Status DC Propofol 200 mg STK-MED ONCE IV; Start 03/27/25 at 11:12; Stop 03/27/25 at 11:12; Status DC Fentanyl Citrate 100 mcg STK-MED ONCE .ROUTE; Start 03/27/25 at 11:12; Stop 03/27/25 at 11:12; Status DC Ondansetron HCl 4 mg STK-MED ONCE .ROUTE; Start 03/27/25 at 11:12; Stop 03/27/25 at 11:12; Status DC Iohexol 50 ml STK-MED ONCE IV; Start 03/27/25 at 11:55; Stop 03/27/25 at 11:55; Status DC Glycopyrrolate 1 mg STK-MED ONCE .ROUTE; Start 03/27/25 at 11:58; Stop 03/27/25 at 11:58; Status DC Phenylephrine HCl 10 mg STK-MED ONCE IV; Start 03/27/25 at 11:59; Stop 03/27/25 at 11:59; Status DC Neostigmine Methylsulfate 10 mg STK-MED ONCE IV; Start 03/27/25 at 12:01; Stop 03/27/25 at 12:01; Status DC Ondansetron HCl 4 mg STK-MED ONCE .ROUTE Last administered on 03/27/25at 12:44; Start 03/27/25 at 12:42; Stop 03/27/25 at 12:41; Status DC Iohexol 50 ml STK-MED ONCE IV; Start 03/27/25 at 13:45; Stop 03/27/25 at 13:45; Status DC Ketorolac Tromethamine 15 mg ONCE ONCE IV Last administered on 03/27/25at 15:27; Start 03/27/25 at 15:30; Stop 03/27/25 at 15:31; Status DC ANTONY ENRIQUEZ MD Mar 28, 2025 22:11
[2025-03-29] VITALS (8 sets, daily range): BP systolic 94–112; BP diastolic 40–68; PULSE 76–88; RESP 15–20; TEMP 98–98.5; O2SAT 98
[2025-03-29 05:28] LABS: IMMATURE GRANULOCYTE ABSOLUTE 0.03 K/uL (0-1); NUCLEATED RED BLOOD CELLS 0.0 % (0.0-0.19); PLATELET COUNT (AUTO) 394 K/uL (130-400); RED BLOOD CELL COUNT(AUTO) 3.86 MIL/uL (4.00-5.50); RED CELL DISTRIBUTION WIDTH 14.6 % (11.0-15.5); WHITE BLOOD COUNT (AUTO) 6.9 K/uL (4.8-10.8)
[2025-03-29 05:46] LABS: ASPARTATE AMINOTRANSFERASE 184.0 U/L (10-37); CREATININE 0.4 mg/dL (0.5-1.0); GLOMERULAR FILTR. RATE CALC 131.0 mL/min (>90); GLUCOSE,RANDOM 88.0 mg/dL (70-105); SODIUM SERUM 135.0 mmol/L (136-145); TOTAL PROTEIN, SERUM 6.3 g/dL (6.0-8.3); UREA NITROGEN, BLOOD 5.0 mg/dL (7-18)
--- NOTE | 2025-03-29 07:30 | PN ---
GASTROENTEROLOGY PROGRESS NOTE Date of Visit: Mar 29, 2025 Time of Visit: 07:30 Events / Notes: [ Patient underwent ERCP and was found to have minimally dilated duct with no filing defects nor strictures--likely chronic post cholecystectomy dilation. Patient had completed GES and it showed 50% gastric emptying not achieved during the period of study. Scintigraphic findings suggest gastroparesis. Patient resting in sf in no acute distress. Respirations are unlabored. She reports having abdominal pain with some control with pain medication. Oriented to poc and will repeat labs in am. Will start clear fluids. Patient v/u. 03/28/25: WBC 7.6, hgb 10.8, platelets 422. Sodium 132, calcium 8.2, total bilirubin 0.9, AST 178, ALT 154. Lipase 14. VSS. Patient reports feeling slightly better. She reports having nausea and some vomiting today. Will repeat labs in am. 03/29/25: WBC 6.9, Hgb, 10.6, platelets 394. Chemistries significant for sodium of 135, potassium 3.3, BUN five, creatinine 0.4, calcium 8.3. Total bilirubin 1.0, AST trended up to 184, ALT 267, alkaline phos 168, albumin 2.9. CRP at 4.80, Lipase 17. On exam patient is in no acute distress. She reports feeling better and has been able to tolerate fluids. Recommend patient continue with fluid and pureed diet as she was found to have gastroparesis in GES. Recommend she f/u at [facility] in 1 week. She verbalized understanding and agreement. Review of Systems: CONSTITUTIONAL: No malaise or change in sensation of wellbeing. ENMT: No rhinorrhea, CARDIOVASCULAR: No angina, palpitations, RESPIRATORY: No SOB.Respirations unlabored GASTROINTESTINAL: No abdominal pain, nausea, vomiting, diarrhea, hematemesis, melena or change in the patient's habitual bowel movements consistency/number. GENITOURINARY: No dysuria, hematuria or change in bladder continence. MUSCULOSKELETAL: No new muscle pain or decrease in muscular strength. No new joint swelling, redness or tenderness. SKIN: No new rash. Physical Exam: GEN: Awake, alert, oriented in person, time and place, and in no acute distress but reports pain HEENT: Oral mucosa moist. CHEST: Lung auscultation revealed normal breath sounds bilaterally. CARDIAC: Heart sounds are regular. ABD: Soft, less tender to epigastric region, not distended. Normal bowel sounds. EXT: No cyanosis or clubbing. No edema. SKIN: Intact. No rashes. JOINTS: No evidence of synovitis or acute arthritis. NEURO: Alert and oriented to name, place and person. No focal motor deficits. Normal speech Vital Signs (last 8hr) Date Time Temp Pulse Resp B/P (MAP) Pulse Ox O2 Delivery O2 Flow Rate FiO2 03/29/25 04:00 98.1 76 18 94/52 98 Room Air 03/29/25 00:00 98.1 85 18 105/64 98 Room Air Laboratory: [ ] Laboratory: Test 03/29/25 05:11 03/27/25 20:01 Range/Units White Blood Count 6.9 4.8-10.8 K/uL Red Blood Count 3.86 L 4.00-5.50 MIL/uL Hemoglobin 10.6 L 12.0-16.0 g/dL Hematocrit 32.6 L 36-48 % Mean Corpuscular Volume 84.5 79-99 fL Mean Corpuscular Hemoglobin 27.5 27.0-33.0 pg Mean Corpuscular Hemoglobin Concent 32.5 32.0-36.0 g/dL Red Cell Distribution Width 14.6 11.0-15.5 % Platelet Count 394 130-400 K/uL Mean Platelet Volume 10.1 7.5-10.5 fL Immature Granulocyte % (Auto) 0.4 0-1 % Neutrophils (%) (Auto) 57.7 40.0-77.0 % Lymphocytes (%) (Auto) 30.3 21.0-51.0 % Monocytes (%) (Auto) 10.5 3.0-13.0 % Eosinophils (%) (Auto) 0.7 0.0-8.0 % Basophils (%) (Auto) 0.4 0.0-5.0 % Neutrophils # (Auto) 4.0 1.8-7.7 K/uL Lymphocytes # (Auto) 2.1 1.0-4.8 K/uL Monocytes # (Auto) 0.7 0.1-1.0 K/uL Eosinophils # (Auto) 0.05 0.00-0.70 K/uL Basophils # (Auto) 0.03 0.00-0.20 K/uL Absolute Immature Granulocyte (auto 0.03 0-1 K/uL Nucleated Red Blood Cells 0.0 0.0-0.19 % Sodium Level 135 L 136-145 mmol/L Potassium Level 3.3 L 3.5-5.1 mmol/L Chloride Level 102 101-111 mmol/L Carbon Dioxide Level 21 21-32 mmol/L Blood Urea Nitrogen 5 L 7-18 mg/dL Creatinine 0.4 L 0.5-1.0 mg/dL Glomerular Filtration Rate Calc 131 >90 mL/min Whole Blood Glucose 102 70-110 MG/DL Random Glucose 88 70-105 mg/dL Total Calcium 8.3 L 8.5-10.1 mg/dL Total Bilirubin 1.0 0.2-1.0 mg/dL Aspartate Amino Transf (AST/SGOT) 184 H 10-37 U/L Alanine Aminotransferase (ALT/SGPT) 267 H 12-78 U/L Alkaline Phosphatase 168 H 50-136 U/L Total Protein 6.3 6.0-8.3 g/dL Albumin 2.9 L 3.5-5.0 g/dL Lipase 17 16-77 U/L Bedside Glucose Comment Notified Nurse Current Medications Medications (Trade) Dose Ordered Sig/Neva Route PRN Reason Start Time Stop Time Status Last Admin Dose Admin Acetaminophen (TYLenol 325MG TAB) 650 mg Q6H PRN PO MILD PAIN (1-3) 03/23/25 15:00 03/28/25 07:40 DC 03/27/25 18:07 650 MG Dextrose (D50w) 50 ml AD PRN IV HYPOGLYCEMIA PROTOCOL 03/23/25 18:00 04/22/25 17:59 Enoxaparin Sodium (Lovenox) 40 mg DAILY SQ 03/24/25 09:00 04/23/25 08:59 03/28/25 09:29 40 MG Glucagon (Glucagon 1mg Kit) 1 mg AD PRN IM HYPOGLYCEMIA PROTOCOL 03/23/25 18:00 04/22/25 17:59 Hydralazine HCl (APRESOLine 20MG INJ) 5 mg Q6H PRN IV ADMINISTER FOR SBP > 160 03/23/25 15:00 04/22/25 14:59 03/27/25 20:47 5 MG Insulin Glargine (LANtus 100 UNITS/ML 10 ML VIAL) 15 units DAILY SQ 03/24/25 09:00 04/23/25 08:59 03/28/25 09:38 15 UNITS Insulin Human Regular (humuLIN R 100 UNIT/ML 3ML) INSULIN SLIDING SCAL... ACHS SQ 03/23/25 16:30 03/24/25 20:52 DC 03/24/25 18:16 2 UNIT Insulin Human Regular (humuLIN R 100 UNIT/ML 3ML) INSULIN SLIDING SCAL... ACHS SQ 03/24/25 21:00 04/23/25 20:59 03/28/25 20:40 2 UNIT Lactated Ringer's 1,000 ml @ 200 mls/hr Q5H IV 03/23/25 15:00 04/22/25 14:59 03/29/25 04:09 200 MLS/HR Magnesium Sulfate 50 ml @ 0 mls/hr PROTOCOL IV 03/23/25 15:30 04/22/25 15:29 03/25/25 00:26 25 MLS/HR Metoclopramide HCl (regLAN 5 MG TAB) 5 mg TIDAC PO 03/25/25 17:00 03/26/25 12:23 DC 03/26/25 12:21 5 MG Metoclopramide HCl (regLAN 5 MG TAB) 10 mg TIDAC PO 03/26/25 17:00 04/25/25 16:59 Hold 03/28/25 16:12 10 MG Morphine Sulfate (morPHINE 2MG SYG) 2 mg Q8H PRN IVP SEVERE PAIN (7-10) 03/23/25 15:30 03/28/25 18:29 DC 03/28/25 17:50 2 MG Multivitamins Therapeutic (Multivitamin Tablet) 1 tab DAILY PO 03/24/25 09:00 04/23/25 08:59 03/28/25 09:28 1 TAB Pantoprazole Sodium (PROTonix 40MG INJ) 40 mg DAILY IVP 03/24/25 09:00 04/23/25 08:59 03/28/25 09:28 40 MG Potassium Chloride 100 ml @ 100 mls/hr AD PRN IV POTASSIUM PROTOCOL 03/23/25 15:30 04/22/25 15:29 03/25/25 06:47 100 MLS/HR Potassium Chloride (K-Dur/Klor-Con 20meq) 20 meq AD PRN PO POTASSIUM PROTOCOL 03/23/25 15:30 04/22/25 15:29 03/29/25 06:02 20 MEQ Potassium Chloride (KCl 10% Elixir 20meq/15ml) 20 meq AD PRN PO POTASSIUM PROTOCOL 03/23/25 15:30 04/22/25 15:29 Promethazine HCl (Phenergan) 25 mg Q6H PRN IM NAUSEA/VOMITING 03/23/25 15:00 04/22/25 14:59 03/28/25 12:11 25 MG Thiamine HCl (Vitamin B-1) 100 mg Q24H IVP 03/23/25 15:00 04/22/25 14:59 03/28/25 14:48 100 MG Diagnostics / Radiology: [COPY/PASTE HERE IF NO REPORTS PLEASE DELETE SECTION] Assessment: Abdominal pain Nausea and vomiting Dilated CBD Gastroparesis Type 2 DM ] Plan: Case discussed with Dr. Israel Gi prophylaxis with protonix 40mg IV bid Clear fluids and advance as tolerated Will sign off on case. Patient is to f/u at [facility] in 1-2 weeks. Please call with questions, concerns, and change in clinical status Thank you for allowing us to be part of this patient's care. ] JULIETA CEDILLO NP Mar 29, 2025 07:30
--- NOTE | 2025-03-29 15:07 | PN ---
[facility] PROGRESS NOTE Date of Service: Mar 29, 2025 Time of Service: 14:59 SUBJECTIVE: This is a 39-year-old female with underlying history of poorly controlled type 2 diabetes mellitus (last hemoglobin A1c of 10.1 on 03/22/2025), hyperlipidemia, who presented to the ER for further evaluation on nonresolving nausea and vomiting. Patient was admitted to [facility] on 03/21/2025 after she had presented with nausea and vomiting and dehydration. Patient left AMA yesterday while undergoing further evaluation. Patient states that symptoms continued to worsen and she reports having vomited 6 times today. She did not take any insulin today. She is currently being followed by GI and had MRCP done on which showed smoked tapering of the distal common bile duct with upstream dilatation of the CBD measuring 1 cm and mild central intrahepatic biliary dilation concerning for a benign stricture. Recommendations was for a [place] versus ERCP. Patient has not been able to follow up with GI as outpatient. She is unsure if she has had a gastric emptying study done for evaluation of gastroparesis previously. Her blood sugars remain poorly controlled and her last hemoglobin A1c was close to 10.1. She reports being a diabetic for more than 10 years. She reports having mild headache today. Denies any chest pain or shortness of breath otherwise. She is having moderate epigastric discomfort. She underwent CT of the abdomen pelvis without contrast yesterday which showed no acute intra-abdominal process. Mild CBD dilation was noted. On presentation to the hospital, patient was noted to be afebrile with T-max of 97.9 F, heart rate of 96, blood pressure 180/106. Labs on presentation showed WBC count of 5800, hemoglobin 11.6, platelet count of 815614. BMP showed sodium of 141, potassium 4.2, CO2 of 27, BUN of eight, creatinine of 0.3, blood glucose was noted to be 308, liver enzymes were noted to be normal. Cardiac panel showed normal troponin. Patient will be admitted for further treatment of nonresolving nausea and vomiting. She is agreeable on staying this admission. She will be started on IV fluids, blood sugars will be controlled, consultation with GI will be requested for further evaluation of abnormal MRCP results. Management of diabetes will be optimized and she will undergo further workup to rule out diabetic gastroparesis. Plan of care was discussed in detail with patient at bedside. 03/24/25 Patient was evaluated at the bedside. She is hemodynamically stable. She was well-oriented to time place and person. As per the patient she still was feeling nauseous but her vomiting has subsided. There are no other associated symptoms like fever, chills, constipation and diarrhea. Her HbA1c level is 10.1. Patient was admitted to the hospital 2 days ago but left AMA due to a family emergency. 03/25/25 Patient was evaluated at the bedside. She is hemodynamically stable. She was well-oriented to time place and person. She still has episodes of vomiting, 2 this morning and 5 episodes yesterday. She also has abdominal pain and mild tenderness. There are no other associated symptoms like fever, chills, shortness of breath. Her blood glucose has trended down from 308 to 155 today. 03/26/25 Patient was evaluated at the bedside. She is hemodynamically stable. She was well-oriented to time place and person. She still has episodes of vomiting, 1 this morning and 3 episodes yesterday. She also has abdominal pain. Gastric emptying test was suggestive of gastroparesis. Ringer's lactate has been increased to 200 mL/hour and metoclopramide to 10 mg thrice daily. 03/27/25 Patient was evaluated at the bedside this morning. She is hemodynamically st able. She was well-oriented to time place and person. Her symptoms have gradually subsided. She does not complain of nausea and vomiting. Patient underwent ERCP and was found to have minimally dilated duct with no filing defects nor strictures--likely chronic post cholecystectomy dilation. After the procedure, she reports abdominal pain 10. 03/28/25 Patient was evaluated at the bedside this morning. She is hemodynamically stable. She was well-oriented to time place and person. She doesn't complain of nausea and vomiting. She has been started on GI soft diet and tolerating well. Her liver function tests results were deranged, AST 178 and ALT 154, ALP 133. As per the surgery, discharge recommendations can be made only after the LFTs trend downward. 03/28/25 Patient was evaluated at the bedside this morning. She is hemodynamically stable. She was well-oriented to time place and person. She had 1 episode of vomiting yesterday. Her liver function tests results were elevated, AST 184 and ALT 267, ALP 168. Her CRP is 4.80 and lipase is 17. Currently awaiting for the liver functions to normalize for the discharge. REVIEW OF SYSTEMS CONSTITUTIONAL: No fever, chills, or night sweats. NEUROLOGICAL: Denies headache, sensory and motor deficit. CARDIOVASCULAR: Denies any exertional angina, dyspnea on exertion, orthopnea, paroxysmal nocturnal dyspnea, palpitations. PULMONARY: Denies any shortness of breath, cough, phlegm/sputum, hemoptysis, pleuritic chest pain. GASTROINTESTINAL: Her symptoms are gradually subsiding. Denies Nausea and vomiting GENITOURINARY: Denies frequency, urgency, nocturia, hematuria or incontinence. PHYSICAL EXAM GENERAL APPEARANCE: The patient is alert, awake and oriented and bedbound. NEUROLOGICAL: No sensory and motor deficits. CHEST: Normal chest expansion. LUNGS: Normal vesicular breath sound. Absence of any rales, rhonchi or any wheezing. CARDIOVASCULAR: Regular. S1 and S2 normal. No appreciable rubs, murmurs or gallops. ABDOMEN: Soft and non-tender. There is no rebound, voluntary guarding, or rigidity. GENITOURINARY: No suprapubic tenderness. No costovertebral angle tenderness. Vital Signs (last 8hr) Date Time Temp Pulse Resp B/P (MAP) Pulse Ox O2 Delivery O2 Flow Rate FiO2 03/29/25 12:00 98.4 79 16 106/61 96 Room Air 03/29/25 08:24 98 Room Air* 0 21 03/29/25 08:00 98.4 88 15 108/66 98 Room Air LABS: Laboratory: Test 03/29/25 11:30 03/29/25 05:11 03/27/25 20:01 Range/Units Whole Blood Glucose 196 #H 70-110 MG/DL White Blood Count 6.9 4.8-10.8 K/uL Red Blood Count 3.86 L 4.00-5.50 MIL/uL Hemoglobin 10.6 L 12.0-16.0 g/dL Hematocrit 32.6 L 36-48 % Mean Corpuscular Volume 84.5 79-99 fL Mean Corpuscular Hemoglobin 27.5 27.0-33.0 pg Mean Corpuscular Hemoglobin Concent 32.5 32.0-36.0 g/dL Red Cell Distribution Width 14.6 11.0-15.5 % Platelet Count 394 130-400 K/uL Mean Platelet Volume 10.1 7.5-10.5 fL Immature Granulocyte % (Auto) 0.4 0-1 % Neutrophils (%) (Auto) 57.7 40.0-77.0 % Lymphocytes (%) (Auto) 30.3 21.0-51.0 % Monocytes (%) (Auto) 10.5 3.0-13.0 % Eosinophils (%) (Auto) 0.7 0.0-8.0 % Basophils (%) (Auto) 0.4 0.0-5.0 % Neutrophils # (Auto) 4.0 1.8-7.7 K/uL Lymphocytes # (Auto) 2.1 1.0-4.8 K/uL Monocytes # (Auto) 0.7 0.1-1.0 K/uL Eosinophils # (Auto) 0.05 0.00-0.70 K/uL Basophils # (Auto) 0.03 0.00-0.20 K/uL Absolute Immature Granulocyte (auto 0.03 0-1 K/uL Nucleated Red Blood Cells 0.0 0.0-0.19 % Sodium Level 135 L 136-145 mmol/L Potassium Level 3.3 L 3.5-5.1 mmol/L Chloride Level 102 101-111 mmol/L Carbon Dioxide Level 21 21-32 mmol/L Blood Urea Nitrogen 5 L 7-18 mg/dL Creatinine 0.4 L 0.5-1.0 mg/dL Glomerular Filtration Rate Calc 131 >90 mL/min Random Glucose 88 70-105 mg/dL Total Calcium 8.3 L 8.5-10.1 mg/dL Total Bilirubin 1.0 0.2-1.0 mg/dL Aspartate Amino Transf (AST/SGOT) 184 H 10-37 U/L Alanine Aminotransferase (ALT/SGPT) 267 H 12-78 U/L Alkaline Phosphatase 168 H 50-136 U/L C-Reactive Protein, Quantitative 4.80 H 0.5-3.0 mg/L Total Protein 6.3 6.0-8.3 g/dL Albumin 2.9 L 3.5-5.0 g/dL Lipase 17 16-77 U/L Bedside Glucose Comment Notified Nurse Current Medications Medications (Trade) Dose Ordered Sig/Neva Route PRN Reason Start Time Stop Time Status Last Admin Dose Admin Acetaminophen (TYLenol 325MG TAB) 650 mg Q6H PRN PO MILD PAIN (1-3) 03/23/25 15:00 03/28/25 07:40 DC 03/27/25 18:07 650 MG Dextrose (D50w) 50 ml AD PRN IV HYPOGLYCEMIA PROTOCOL 03/23/25 18:00 04/22/25 17:59 Enoxaparin Sodium (Lovenox) 40 mg DAILY SQ 03/24/25 09:00 04/23/25 08:59 03/29/25 08:16 40 MG Glucagon (Glucagon 1mg Kit) 1 mg AD PRN IM HYPOGLYCEMIA PROTOCOL 03/23/25 18:00 04/22/25 17:59 Hydralazine HCl (APRESOLine 20MG INJ) 5 mg Q6H PRN IV ADMINISTER FOR SBP > 160 03/23/25 15:00 04/22/25 14:59 03/27/25 20:47 5 MG Insulin Glargine (LANtus 100 UNITS/ML 10 ML VIAL) 15 units DAILY SQ 03/24/25 09:00 04/23/25 08:59 03/29/25 08:23 15 UNITS Insulin Human Regular (humuLIN R 100 UNIT/ML 3ML) INSULIN SLIDING SCAL... ACHS SQ 03/23/25 16:30 03/24/25 20:52 DC 03/24/25 18:16 2 UNIT Insulin Human Regular (humuLIN R 100 UNIT/ML 3ML) INSULIN SLIDING SCAL... ACHS SQ 03/24/25 21:00 04/23/25 20:59 03/29/25 11:59 2 UNIT Lactated Ringer's 1,000 ml @ 200 mls/hr Q5H IV 03/23/25 15:00 04/22/25 14:59 03/29/25 04:09 200 MLS/HR Magnesium Sulfate 50 ml @ 0 mls/hr PROTOCOL IV 03/23/25 15:30 04/22/25 15:29 03/25/25 00:26 25 MLS/HR Metoclopramide HCl (regLAN 5 MG TAB) 5 mg TIDAC PO 03/25/25 17:00 03/26/25 12:23 DC 03/26/25 12:21 5 MG Metoclopramide HCl (regLAN 5 MG TAB) 10 mg TIDAC PO 03/26/25 17:00 04/25/25 16:59 Hold 03/28/25 16:12 10 MG Morphine Sulfate (morPHINE 2MG SYG) 2 mg Q8H PRN IVP SEVERE PAIN (7-10) 03/23/25 15:30 03/28/25 18:29 DC 03/28/25 17:50 2 MG Multivitamins Therapeutic (Multivitamin Tablet) 1 tab DAILY PO 03/24/25 09:00 04/23/25 08:59 03/29/25 08:16 1 TAB Pantoprazole Sodium (PROTonix 40MG INJ) 40 mg DAILY IVP 03/24/25 09:00 04/23/25 08:59 03/29/25 08:15 40 MG Potassium Chloride 100 ml @ 100 mls/hr AD PRN IV POTASSIUM PROTOCOL 03/23/25 15:30 04/22/25 15:29 03/25/25 06:47 100 MLS/HR Potassium Chloride (K-Dur/Klor-Con 20meq) 20 meq AD PRN PO POTASSIUM PROTOCOL 03/23/25 15:30 04/22/25 15:29 03/29/25 12:04 20 MEQ Potassium Chloride (KCl 10% Elixir 20meq/15ml) 20 meq AD PRN PO POTASSIUM PROTOCOL 03/23/25 15:30 04/22/25 15:29 Promethazine HCl (Phenergan) 25 mg Q6H PRN IM NAUSEA/VOMITING 03/23/25 15:00 04/22/25 14:59 03/28/25 12:11 25 MG Thiamine HCl (Vitamin B-1) 100 mg Q24H IVP 03/23/25 15:00 04/22/25 14:59 03/28/25 14:48 100 MG DIAGNOSTICS / RADIOLOGY: [ ] ASSESSMENT: Intractable nausea and vomiting for several days, POA Dehydration, POA Transaminitis Uncontrolled hyperglycemia with underlying history of type 2 diabetes mellitus, POA History of poorly controlled diabetes mellitus, POA Hypertensive urgency, POA History of abnormal MRCP findings with concerns benign CBD stricture, POA Rule out diabetic gastroparesis, POA Headache, POA PLAN: Intractable nausea and vomiting * Patient reports having vomited 6 times. * Started patient on IV hydration with LR at 100 mL/hour * GI consultation requested, patient has prior abnormal MRCP findings, liver function test is normal on labs today, we will keep patient on Protonix 40 daily * CT abdomen pelvis without contrast showed no acute intra-abdominal findings, it showed some mild CBD dilation which was already evaluated from MRCP previously * Consultation with dietitian will be requested to assist with further nutritional assessment/management * She still has episodes of nausea and vomiting. 03/25/25 * Will continue IV fluids (RL 100mls/hr) and Protonix 40mg IV once daily. * She has been started on GI soft diet and tolerating well. 03/28/25 CBD stricture, suspected * Patient underwent ERCP and was found to have minimally dilated duct with no filing defects nor strictures-likely chronic post cholecystectomy dilation. 03/27/25 * After the procedure, she reports abdominal pain 02/10. Transaminitis * Her liver function tests results were elevated, AST 184 and ALT 267, ALP 168. 03/29/25 * She is currently off metoclopramide and acetaminophen. * Her CRP is 4.80 and lipase is 17. * She had ERCP procedure done. 03/27/25 * Her liver function tests results were deranged, AST 178, ALT 154 and ALP 133. * As per the surgery, discharge recommendations can be made only after the LFTs trend downward. 03/28/25 Diabetic gastroparesis * Nuclear medicine gastric emptying study to assess for gastroparesis was done today morning. 03/24/25 * Consider prokinetic therapy if the results are positive * Metoclopramide 5mg TID has been started and will monitor the patient closely. 03/25/25 * Currently awaiting the Gastric Emptying test results. * Gastric emptying test was suggestive of gastroparesis. Her symptoms has still persisted hence Ringer's lactate has been increased to 200 mL/hour and metoclopramide to 10 mg thrice daily. 03/26/25 * If the symptoms persist, we can start her on erythromycin to increase the gastric motility. Uncontrolled hyperglycemia with underlying history of diabetes mellitus * HbA1C level was 10.1 and glucose on presentation was 308. * Glutamic acid decarboxylase antibody test has been ordered.(Anti-NEISHA) * Patient on sliding scale insulin a.c. and HS * Lantus 15 units dose now for high blood sugar * Observe blood sugar trends in the next 24-48 hours, then adjust Lantus based on blood glucose trend, we will have Dr. Pepe with endocrinology optimize diabetes control * Anion gap has increased from 12 to 16. 03/26/25 * Anion gap is 6 today. 03/27/25 Supportive measures * All labs will be repeated in the morning * Monitor closely for signs of ketosis or developing DKA, patient remains at risk of starvation ketoacidosis as well, we will keep patient on thiamine supplementation and multivitamins * IV fluids, electrolyte replacement as needed * Currently awaiting for the liver functions to normalize for the discharge.03/29/25 ATTESTATION BY PHYSICIAN I have seen and examined the patient. I reviewed the documentation, medical decision making, and treatment plan as noted by the resident provider above. I agree with the findings and plan of care. ROSANNA VALENZUELA MD ASHLI LLANOS MD Mar 29, 2025 15:07
[2025-03-29 19:52] LABS: ASPARTATE AMINOTRANSFERASE 47.0 U/L (10-37); CREATININE 0.5 mg/dL (0.5-1.0); GLOMERULAR FILTR. RATE CALC 124.0 mL/min (>90); GLUCOSE,RANDOM 239.0 mg/dL (70-105); SODIUM SERUM 135.0 mmol/L (136-145); TOTAL PROTEIN, SERUM 6.0 g/dL (6.0-8.3); UREA NITROGEN, BLOOD 6.0 mg/dL (7-18)
[2025-03-30 03:52] VITALS: BP 108/63; PULSE 73; RESP 16; TEMP 98
[2025-03-30 05:12] LABS: NUCLEATED RED BLOOD CELLS 0.0 % (0.0-0.19); PLATELET COUNT (AUTO) 361.0 K/uL (130-400); RED BLOOD CELL COUNT(AUTO) 3.46 MIL/uL (4.00-5.50); RED CELL DISTRIBUTION WIDTH 15.1 % (11.0-15.5); WHITE BLOOD COUNT (AUTO) 5.7 K/uL (4.8-10.8)
[2025-03-30 05:36] LABS: ASPARTATE AMINOTRANSFERASE 24.0 U/L (10-37); CREATININE 0.3 mg/dL (0.5-1.0); GLOMERULAR FILTR. RATE CALC 140.0 mL/min (>90); GLUCOSE,RANDOM 190.0 mg/dL (70-105); SODIUM SERUM 136.0 mmol/L (136-145); TOTAL PROTEIN, SERUM 5.7 g/dL (6.0-8.3); UREA NITROGEN, BLOOD 6.0 mg/dL (7-18)
[2025-03-30 07:19] VITALS: O2SAT 98
[2025-03-30 08:00] VITALS: BP 109/69; PULSE 81; RESP 18; TEMP 97.8
[2025-03-30 11:27] VITALS: BP 115/63; PULSE 72; RESP 19; TEMP 98.1
--- NOTE | 2025-03-30 14:52 | DS ---
Discharge Summary Hospital Course Summary: The patient is a 39-year-old female with a history of poorly controlled type 2 diabetes mellitus (HbA1c 10.1) and hyperlipidemia who presented with persistent nausea, vomiting, and dehydration. She initially reported six episodes of vomiting in one day, moderate epigastric discomfort, and mild headache, but denied chest pain, shortness of breath, or other infectious symptoms. On admission, she was afebrile and hemodynamically stable, with laboratory findings notable for leukopenia, anemia, thrombocytosis, and significant hyperglycemia (blood glucose 308 mg/dL). Renal and liver function were initially within normal limits. Imaging with CT abdomen/pelvis showed mild common bile duct (CBD) dilation, and a prior MRCP had raised concern for a possible benign biliary stricture. She was admitted for further management, including IV fluids, glycemic optimization, and GI consultation. During her hospital stay, the patient continued to experience episodes of nausea and vomiting, though the frequency gradually decreased with supportive care. A nuclear medicine gastric emptying study was performed, which confirmed delayed gastric emptying consistent with diabetic gastroparesis. She was started on metoclopramide 5 mg three times daily, later increased to 10 mg three times daily, with improvement in her symptoms. IV fluids were titrated to address ongoing dehydration. Given her biliary imaging findings, she underwent ERCP, which revealed a minimally dilated duct without filling defects or strictures, findings most consistent with chronic post-cholecystectomy changes. Following the procedure, she developed transient abdominal pain and mild transaminitis (AST 178, ALT 154, ALP 133), which was monitored closely. Later the Liver enzymes gradually subsided. By the end of her hospitalization, the patients nausea and vomiting had resolved, and she was tolerating a GI soft diet. Her blood glucose levels improved significantly with medical management. She remained hemodynamically stable and well-oriented throughout her stay, with no evidence of acute infection or other complications. Discharge planning was based on the trend of her liver function tests which normalized gradually, with recommendations for close outpatient follow-up with gastroenterology for ongoing management of gastroparesis and biliary findings, as well as continued glycemic control and dietary modifications. [employer](s): Gastroenterology: Dewey Israel MD Procedure(s): [place] [address] [place] [address] [id number] IMAGING REPORT Signed PATIENT: RAEANN PTIT MR#: [id number] : 1985 SEX: F AGE: 39 LOCATION: [facility] ORDER 1451 STATUS: ADM IN REPORT#: [id number] SERVICE 1448 REASON: r/o any significant infiltrates ORDERING PHYSICIAN: DILIA REIS MD PROCEDURE: CXR1VW - CHEST 1VW EXAM: CR Chest, 1 View. CLINICAL HISTORY: r/o any significant infiltrates COMPARISON: None provided. FINDINGS: ERCP LUNGS: The lungs show no infiltrate or other acute finding. PLEURAL SPACES: No pleural effusion or pneumothorax. MEDIASTINUM: The cardiomediastinal silhouette is within normal limits. BONES: No aggressive appearing osseous lesion seen. IMPRESSION: No acute cardiopulmonary pathology is evident. /[place] DICTATED BY: LICHA RUDOLPH Jr., MD DATE: 03/23/251650 ELECTRONICALLY SIGNED BY: LICHA RUDOLPH Jr., MD DATE: 03/23/251650 [place] [address] IMAGING REPORT Signed PATIENT: RAEANN PITT MR#: [id number] : 1985 SEX: F AGE: 39 LOCATION: [facility] ORDER 1537 STATUS: ADM IN REPORT#: [id number] SERVICE 1535 REASON: non resolving headache, HTN Urgency ORDERING PHYSICIAN: DIILA REIS MD PROCEDURE: HEAD WO - CT HEAD/BRAIN W/O CONTRAST EXAM: CT Head Without IV contrast. CLINICAL HISTORY: non resolving headache, HTN Urgency TECHNIQUE: Axial computed tomography images of the head/brain without intravenous contrast. COMPARISON: None provided. FINDINGS: BRAIN: No evidence of acute hemorrhage. No mass lesion. No CT evidence for acute territorial infarct. No midline shift or extra-axial collections. VENTRICLES: No hydrocephalus. ORBITS: The orbits are unremarkable. SINUSES AND MASTOIDS: The paranasal sinuses and mastoid air cells are clear. BONES: No fracture. SOFT TISSUES: Unremarkable. IMPRESSION: No acute intracranial abnormality. /[place] DICTATED BY: LICHA RUDOLPH Jr., MD DATE: 03/23/251757 ELECTRONICALLY SIGNED BY: LICHA RUDOLPH Jr., MD DATE: 03/23/251757 [place] [id number] [place] [id number] IMAGING REPORT Signed PATIENT: RAEANN PITT MR#: [id number] : 1985 SEX: F AGE: 39 LOCATION: [facility] ORDER 1449 STATUS: ADM IN REPORT#: [id number] SERVICE 0800 REASON: non resolving n/v, hx of MD II x 10 years, assess for gastroparesis ORDERING PHYSICIAN: DILIA REIS MD PROCEDURE: GASTEMP - NM GASTRIC EMPTYING STUDY EXAM: Nuclear Medicine Gastric Emptying Scan. INDICATION: Non resolving nausea and vomiting. REFERENCE EXAMINATION: None TECHNIQUE: 2.1 mCi of Tc99m sulfur colloid with egg whites, 2 slices of bread/jam, 4 ounces of water. FINDINGS: Transit of radiopharmaceutical is seen from the stomach into the small bowel. 50% gastric emptying not achieved during the period of study. IMPRESSION: Scintigraphic findings suggest gastroparesis. /[place] DICTATED BY: LICHA RUDOLPH Jr., MD DATE: 03/25/252207 ELECTRONICALLY SIGNED BY: LICHA RUDOLPH Jr., MD DATE: 03/25/252207 Assessment/Plan: ASSESSMENT: Intractable nausea and vomiting for several days, POA Dehydration, POA Transaminitis Uncontrolled hyperglycemia with underlying history of type 2 diabetes mellitus, POA History of poorly controlled diabetes mellitus, POA Hypertensive urgency, POA History of abnormal MRCP findings with concerns benign CBD stricture, POA Rule out diabetic gastroparesis, POA Headache, POA PLAN: Intractable nausea and vomiting * Patient reports having vomited 6 times. * Started patient on IV hydration with LR at 100 mL/hour * GI consultation requested, patient has prior abnormal MRCP findings, liver function test is normal on labs today, we will keep patient on Protonix 40 daily * CT abdomen pelvis without contrast showed no acute intra-abdominal findings, it showed some mild CBD dilation which was already evaluated from MRCP previously * Consultation with dietitian will be requested to assist with further nutritional assessment/management * She still has episodes of nausea and vomiting. 03/25/25 * Will continue IV fluids (RL 100mls/hr) and Protonix 40mg IV once daily. * She has been started on GI soft diet and tolerating well. 03/28/25 CBD stricture, suspected * Patient underwent ERCP and was found to have minimally dilated duct with no filing defects nor strictures-likely chronic post cholecystectomy dilation. 03/27/25 * After the procedure, she reports abdominal pain 8/10. Transaminitis * Her liver function tests results were elevated, AST 184 and ALT 267, ALP 168. 03/29/25 * She is currently off metoclopramide and acetaminophen. * Her CRP is 4.80 and lipase is 17. * She had ERCP procedure done. 03/27/25 * Her liver function tests results were deranged, AST 178, ALT 154 and ALP 133. * As per the surgery, discharge recommendations can be made only after the LFTs trend downward. 03/28/25 Diabetic gastroparesis * Nuclear medicine gastric emptying study to assess for gastroparesis was done today morning. 03/24/25 * Consider prokinetic therapy if the results are positive * Metoclopramide 5mg TID has been started and will monitor the patient closely. 03/25/25 * Currently awaiting the Gastric Emptying test results. * Gastric emptying test was suggestive of gastroparesis. Her symptoms has still persisted hence Ringer's lactate has been increased to 200 mL/hour and metoclopramide to 10 mg thrice daily. 03/26/25 * If the symptoms persist, we can start her on erythromycin to increase the gastric motility. Uncontrolled hyperglycemia with underlying history of diabetes mellitus * HbA1C level was 10.1 and glucose on presentation was 308. * Glutamic acid decarboxylase antibody test has been ordered.(Anti-NEISHA) * Patient on sliding scale insulin a.c. and HS * Lantus 15 units dose now for high blood sugar * Observe blood sugar trends in the next 24-48 hours, then adjust Lantus based on blood glucose trend, we will have Dr. Peep with endocrinology optimize diabetes control * Anion gap has increased from 12 to 16. 03/26/25 * Anion gap is 6 today. 03/27/25 Supportive measures * All labs will be repeated in the morning * Monitor closely for signs of ketosis or developing DKA, patient remains at ris k of starvation ketoacidosis as well, we will keep patient on thiamine supplementation and multivitamins * IV fluids, electrolyte replacement as needed * Currently awaiting for the liver functions to normalize for the discharge.03/29/25 Discharge Instructions: Take Small frequent meals Low fat, Low fiber diet Soft or pureed consistency as tolerated Follow Up with Gastroenterology in 1-2 weeks Follow up With PCP in 1-2 weeks Take home Medications as directed Home Medications: Reported Medications Insulin NPH Hum/Reg Insulin Hm (Novolin 70-30 Flexpen) 100 Unit/Ml (70-30) Insuln.pen, 15 UNIT SQ HS, SYRINGE 03/01/25 Insulin NPH Hum/Reg Insulin Hm (Novolin 70-30 Flexpen) 100 Unit/Ml (70-30) Insuln.pen, 25 UNIT SQ DAILY, SYRINGE 03/01/25 Time spent arranging discharge: 31-60 minutes ATTESTATION BY PHYSICIAN I have seen and examined the patient. I reviewed the documentation, medical decision making, and treatment plan as noted by the resident provider above. I agree with the findings and plan of care. Elio Mercado MD ASHLI LLANOS MD Mar 30, 2025 14:52
--- NOTE | 2025-03-30 15:40 | NUR ---
DC INSTRUCTIONS GIVEN AND ACKNOWLEDGED. IV REMOVED
--- NOTE | 2025-04-05 16:37 | HMCIMG ---
ERCP BILI/PANC DUCT HISTORY: CHOLEDOCHOLITHIASIS TECHNIQUE: ERCP BILI/PANC DUCT FINDINGS/IMPRESSION: Fluoroscopic image/s obtained for procedure documentation. Please see operative report for more details. Fluoroscopy time 92 seconds. Patient is undergoing endoscopic retrograde cholangiopancreatogram. With sphincterotomy and papillotomy. Details of the finding in the procedure notes.
== END 2025-03-30 15:50 | disposition home or self-care (01) | DRG 446 ==
LOC: EDH 12:10 → EDHIP 12:11 → 3BH 03-24 11:57
PROVIDERS: ADMIT Internal Medicine; ATTEND Internal Medicine
PROC: 0F798ZZ Dilation of Common Bile Duct, Via Natural or Artificial Opening Endoscopic (ICD-10-PCS; principal; 2025-03-27)
DX: K83.8 Other specified diseases of biliary tract (principal); E11.43 Type 2 diabetes mellitus with diabetic autonomic (poly)neuropathy; I16.0 Hypertensive urgency; E86.0 Dehydration; K31.84 Gastroparesis; E11.65 Type 2 diabetes mellitus with hyperglycemia; D64.9 Anemia, unspecified; Z53.29 Procedure and treatment not carried out because of patient's decision for other reasons; N28.1 Cyst of kidney, acquired; K76.0 Fatty (change of) liver, not elsewhere classified; E78.5 Hyperlipidemia, unspecified; Z79.4 Long term (current) use of insulin; Z90.49 Acquired absence of other specified parts of digestive tract
CPT/HCPCS: 36415; 43262; 70450; 71045; 74328; 74330; 78264; 80048; 80053; 80305; 81001; 81025; 82533; 82550; 82948; 83615; 83690; 83735; 84145; 84484; 84703; 85025; 85027; 85651; 86140; 86341; 93005; 96361; 96374; 96375; 99285; A4606; A9541; C1769; C1773; G0378; J0360; J1650; J1815; J1885; J2270; J2371; J2405; J2470; J2550; J2704; J2710; J3010; J3411; J3475; J3480; J3490; J7030; J7120; Q9967; A4215; A4221; A4222; A4223; A4620; A4663

== ENCOUNTER 2025-04-15 04:21 | Inpatient (IN) | payer SELFPAY ==
[~2025-04-15] VITALS: Ht 165.1 cm; Wt 59.9 kg
[2025-04-15 04:54] LABS: IMMATURE GRANULOCYTE ABSOLUTE 0.03 K/uL (0-1); NUCLEATED RED BLOOD CELLS 0.0 % (0.0-0.19); PLATELET COUNT (AUTO) 337 K/uL (130-400); RED BLOOD CELL COUNT(AUTO) 3.96 MIL/uL (4.00-5.50); RED CELL DISTRIBUTION WIDTH 14.6 % (11.0-15.5); WHITE BLOOD COUNT (AUTO) 7.6 K/uL (4.8-10.8)
[2025-04-15 05:28] LABS: ASPARTATE AMINOTRANSFERASE 24.0 U/L (10-37); CREATININE 0.3 mg/dL (0.5-1.0); GLOMERULAR FILTR. RATE CALC 140.0 mL/min (>90); GLUCOSE,RANDOM 285.0 mg/dL (70-105); SODIUM SERUM 135.0 mmol/L (136-145); TOTAL PROTEIN, SERUM 7.5 g/dL (6.0-8.3); UREA NITROGEN, BLOOD 5.0 mg/dL (7-18)
[2025-04-15] MEDS: PROCHLORPERAZINE 10MG/2ML INJ IV ONE (05:49)
[2025-04-15] MEDS: 0.9%NACL 1000ML 1,000 ML IV ONE (05:50)
--- NOTE | 2025-04-15 05:55 | NUR ---
PENDING U/A, PATIENT UNABLE TO URINATE, HAS BEEN VOMITING > 12 HOURS.
--- NOTE | 2025-04-15 06:34 | ERN ---
ED Note History of Present Illness Stated Complaint: N/V, EPIGASTRIC PAIN Chief Complaint: Nausea,Vomiting,Diarrhea Time Seen by MD: 04:24 Dictation: This is a 39-year-old female with a history of diabetes came in with the epigastric pain nausea vomitings profusely for the past 12 hours. Apparently she vomited more than 10 times and called EMS the glucose was 301 per EMS. She has a known chronic abdominal pain and has multiple episodes of diabetic ketoacidosis. EMS gave her a L of normal saline and Zofran 8 mg and upon arrival patient was still vomitings. No hematemesis or melena no fever chills or rigors. Temperature 99 pulse 87 respirations 17 blood pressure 160/97 with a pulse oximetry of 100% on room air Chronic medical problems include diabetes mellitus, hypertension, gastr oesophageal reflux disease, episodes of DKA Allergies: Coded Allergies: No Known Drug Allergies (Unverified Allergy, Unknown, 10/02/15) Home Meds Reported Medications Insulin NPH Hum/Reg Insulin Hm (Novolin 70-30 Flexpen) 100 Unit/Ml (70-30) Insuln.pen, 15 UNIT SQ HS, SYRINGE 03/01/25 Insulin NPH Hum/Reg Insulin Hm (Novolin 70-30 Flexpen) 100 Unit/Ml (70-30) Insuln.pen, 25 UNIT SQ DAILY, SYRINGE 03/01/25 Past Medical History Past Medical History: Diabetes-Type II, GERD, Hypertension Additional Past Medical Hx: DKA Surgical History: Cholecystectomy, Surgical History Other: TUBAL LIGATION 2020 Family History: Negative Social History: Lives with family, Other History: Not Applicable RN Note Reviewed/Agreed w/PFSH: Yes Review of System Dictation Constitutional: Negative for fever,chills, and weight loss Eyes: Negative for injury, pain,redness, and discharge ENT: Negative for injury,pain or swelling Cardiovascular: Negative for chest pain, palpitations, and edema Respiratory: Negative for shortness of breath, cough, and wheezing, Abdomen/GI: Positive for abdominal pain, nausea, vomiting, denied diarrhea, and constipation Back: Negative for injury and pain : Negative for injury, bleeding and discharge MS/Extremity: Negative for injury and deformity Skin: Negative for rash, and discoloration Neuro: Negative for headache, weakness, numbness, tingling, and seizure Psych: Negative for suicide ideation, homicidal ideation, and hallucinations Initial Vital Sign VS Vital Signs Date Time Temp Pulse Resp B/P (MAP) Pulse Ox O2 Delivery O2 Flow Rate FiO2 04/15/25 04:23 99.0 87 17 160/97 100 Room Air 0 04/15/25 04:40 21 Physical Exam Dictation General: awake, alert, NAD Head/Face: Normocephalic, atraumatic Eyes: PERRL, EOMI, vision at baseline ENT: oral cavity clear, TMs clear, no signs of infection Neck: Trachea midline, supple, no nuchal rigidity Cardiovascular: RRR, normal S1/S2, No MRGs, no JVD Respiratory: CTAB, no respiratory distress, No rales or wheezes Abdomen: Soft, non-tender, non-distended, normal bowel sounds, no guarding or rebound. Skin: Warm, dry, normal turgor, no rash MS/Extremity: Pulses equal, no cyanosis, neurovascular intact, FROM Neuro: COAx4, GCS 15, strength 5/5, CN 2-12 intact, normal cerebellar exam, normal gait, Psych: Normal behavior, mood, and affect normal Extremities-trace edema without any palpable cords, Homans sign is negative Results (Laboratory/Radiology) Laboratory/Radiology Laboratory Tests Test 04/15/25 04:39 White Blood Count 7.6 K/uL (4.8-10.8) Red Blood Count 3.96 MIL/uL (4.00-5.50) L Hemoglobin 11.0 g/dL (12.0-16.0) L Hematocrit 34.1 % (36-48) L Mean Corpuscular Volume 86.1 fL (79-99) Mean Corpuscular Hemoglobin 27.8 pg (27.0-33.0) Mean Corpuscular Hemoglobin Concent 32.3 g/dL (32.0-36.0) Red Cell Distribution Width 14.6 % (11.0-15.5) Platelet Count 337 K/uL (130-400) Mean Platelet Volume 11.7 fL (7.5-10.5) H Immature Granulocyte % (Auto) 0.4 % (0-1) Neutrophils (%) (Auto) 85.6 % (40.0-77.0) H Lymphocytes (%) (Auto) 11.3 % (21.0-51.0) L Monocytes (%) (Auto) 2.4 % (3.0-13.0) L Eosinophils (%) (Auto) 0.0 % (0.0-8.0) Basophils (%) (Auto) 0.3 % (0.0-5.0) Neutrophils # (Auto) 6.5 K/uL (1.8-7.7) Lymphocytes # (Auto) 0.9 K/uL (1.0-4.8) L Monocytes # (Auto) 0.2 K/uL (0.1-1.0) Eosinophils # (Auto) 0.00 K/uL (0.00-0.70) Basophils # (Auto) 0.02 K/uL (0.00-0.20) Absolute Immature Granulocyte (auto 0.03 K/uL (0-1) Nucleated Red Blood Cells 0.0 % (0.0-0.19) Sodium Level 135 mmol/L (136-145) L Potassium Level 4.0 mmol/L (3.5-5.1) Chloride Level 101 mmol/L (101-111) Carbon Dioxide Level 23 mmol/L (21-32) Blood Urea Nitrogen 5 mg/dL (7-18) L Creatinine 0.3 mg/dL (0.5-1.0) L Glomerular Filtration Rate Calc 140 mL/min (>90) Random Glucose 285 mg/dL (70-105) H Whole Blood Ketones Quantitative 1.8 mmol/L (0.0-0.6) H Total Calcium 8.3 mg/dL (8.5-10.1) L Total Bilirubin 0.5 mg/dL (0.2-1.0) Aspartate Amino Transf (AST/SGOT) 24 U/L (10-37) Alanine Aminotransferase (ALT/SGPT) 25 U/L (12-78) Alkaline Phosphatase 68 U/L (50-136) Troponin I High Sensitivity < 4 ng/L (4-50) L Total Protein 7.5 g/dL (6.0-8.3) Albumin 3.6 g/dL (3.5-5.0) Lipase 13 U/L (16-77) L Labs Reviewed?: Yes X-RAY Comment: REASON: non resolving n/v, hx of MD II x 10 years, assess for gastroparesis ORDERING PHYSICIAN: DILIA REIS MD PROCEDURE: GASTEMP - NM GASTRIC EMPTYING STUDY EXAM: Nuclear Medicine Gastric Emptying Scan. INDICATION: Non resolving nausea and vomiting. REFERENCE EXAMINATION: None TECHNIQUE: 2.1 mCi of Tc99m sulfur colloid with egg whites, 2 slices of bread/jam, 4 ounces of water. FINDINGS: Transit of radiopharmaceutical is seen from the stomach into the small bowel. 50% gastric emptying not achieved during the period of study. IMPRESSION: Scintigraphic findings suggest gastroparesis. /[place] DICTATED BY: LICHA RUDOLPH Jr., MD DATE: 03/25/252207 ELECTRONICALLY SIGNED BY: LICHA RUDOLPH Jr., MD DATE: 03/25/252207 ED Course ED Course Orders Procedure Category Date Status Time Cbc With Differential LAB 04/15/25 Complete 04:37 Comprehensive LAB 04/15/25 Complete Metabolic Panel 04:37 Troponin I High LAB 04/15/25 Complete Sensitivity 04:37 Lipase LAB 04/15/25 Complete 04:37 Ketone Blood LAB 04/15/25 Complete Quantitative 04:37 Urinalysis Profile LAB 04/15/25 Logged 04:37 Ondansetron 4mg Inj PHA 04/15/25 Complete (Zofran 4mg Inj) 05:30 Occult Blood, Gastric LAB 04/15/25 Logged Fluid 05:35 Prochlorperazine PHA 04/15/25 Complete 10mg/2ml Inj 06:00 0.9%Nacl 1000ml (Ns PHA 04/15/25 Complete 1000ml) 06:00 Morphine 4mg Syg PHA 04/15/25 Complete (Morphine 4mg Syg) 06:00 Edm Admit Bridge Order ADM 04/15/25 Verified 07:18 Current Medications Medications (Trade) Dose Ordered Sig/Neva Route PRN Reason Start Time Stop Time Status Last Admin Dose Admin Morphine Sulfate (morPHINE 4MG SYG) 2 mg ONCE ONCE IVP 04/15/25 06:00 04/15/25 06:01 DC 04/15/25 05:50 Ondansetron HCl (zoFRAN 4MG INJ) 4 mg ONCE ONCE IVP 04/15/25 05:30 04/15/25 05:36 DC Prochlorperazine Edisylate (Compazine 10mg/ 2ml Inj) 10 mg ONCE ONCE IV 04/15/25 06:00 04/15/25 06:01 DC 04/15/25 05:49 Sodium Chloride 1,000 ml @ 0 mls/hr ONCE ONCE IV 04/15/25 06:00 04/15/25 06:01 DC 04/15/25 05:50 Vital Signs Date Time Temp Pulse Resp B/P (MAP) Pulse Ox O2 Delivery O2 Flow Rate FiO2 04/15/25 04:40 98.1 86 20 160/97 97 Room Air* 0 21 04/15/25 04:23 99.0 87 17 160/97 100 Room Air 0 7:20 a.m. patient accepted by Lucille Winter, mid-level provider for [facility] hospitalist group for admission and management Medical Decision Making MDM Differential diagnosis: DKA, gastroparesis, viral gastroenteritis, cholecystitis, pancreatitis, diverticulitis, appendicitis This is a 39-year-old female with a history of diabetes came in with the epigastric pain nausea vomitings profusely for the past 12 hours. Apparently she vomited more than 10 times and called EMS the glucose was 301 per EMS. She has a known chronic abdominal pain and has multiple episodes of diabetic ketoacidosis. EMS gave her a L of normal saline and Zofran 8 mg and upon ar rival patient was still vomitings. No hematemesis or melena no fever chills or rigors. Temperature 99 pulse 87 respirations 17 blood pressure 160/97 with a pulse oximetry of 100% on room air Chronic medical problems include diabetes mellitus, hypertension, gastroesophageal reflux disease, episodes of DKA 5:12 a.m. Labs reviewed-CBC shows a hemoglobin of 11. BNP 7 is pending Patient continues to have vomitings. We will give a small dose of Compazine. 6:30 a.m. BNP 7 is with a normal limits glucose is 285. Tone is 1.8. Lipase is 13 and troponins are negative Patient is feeling somewhat better after an additional L of fluids and Compazine. I updated the patient on all the test results and educated her on use of metoclopramide 30 minutes before she eats to assist with her gastroparesis. She never had a trial of metoclopramide so far. Admission to the hospital for the intractable vomitings. Rationale: Tests considered and ordered secondary to shared decision making include: labs, ECG and radiology Previous outside records reviewed: Old ER visits. Risk of complication and/or morbidity or mortality of patient management: None Medications-Per medication reconciliation Need for hospitalization: Patient does meet criteria for hospitalization. Need for emergency major/minor surgery: No There are no social concerns with this patient. Prescription drug management Prescriptions will include symptomatic care Patient's prior external medical records from other ER visits were reviewed by debby antonio as indicated. Prior testing and results from previous visits were reviewed. Prior tests were taken into account with medical decision making and resource utilization, independent historian/historians were used to obtain complete medical history. I independently interpreted the test that were performed, results were reviewed by me and considered findings on radiology if ordered. Medical management and examination interpretation discussions were had by me with other qualified healthcare professionals as indicated for the patient's care. Problem List Problem List: (1) Gastroparesis diabeticorum (2) Intractable nausea and vomiting (3) Uncontrolled type 2 diabetes mellitus with hyperglycemia (4) Elevated blood ketone body level (5) Dehydration DX & DISP Disposition: Inpatient Departure Impression: Primary Impression: Gastroparesis diabeticorum Additional Impressions: Intractable nausea and vomiting, Uncontrolled type 2 diabetes mellitus with hyperglycemia, Dehydration, Elevated blood ketone body level, Mild dehydration Condition: Stable Additional Instructions: Patient was informed of all the diagnostic labs and procedures conducted in the emergency room today and demonstrated understanding of the results. I personally reviewed and interpreted all the diagnostic exams performed in the ER today. The patient will be admitted to the hospital for further treatment and evaluation. Disposition-admit to facility Condition-stable/guarded Course-uncertain at this time Pain status-decreased Assessment-exam unchanged Admission Certification- I certify that the patients status is appropriate and is based on my best clinical judgment and the patient's condition as documented in the medical records Referrals: NONE (PCP) LANDON LOCKETT MD Apr 15, 2025 06:34
--- NOTE | 2025-04-15 07:21 | HP ---
[facility] HISTORY AND PHYSICAL Date of Service: Apr 15, 2025 Time of Service: 07:21 HISTORY OF PRESENT ILLNESS: [This is a 39-year-old female with a history of poorly controlled diabetes mellitus and multiple prior hospitalizations for diabetes-related complications. She was previously admitted on 03/23/2025 for intractable nausea and vomiting. At that time, MRCP revealed a common bile duct (CBD) stricture. She subsequently underwent ERCP, which showed a minimally dilated duct without filling defects; the stricture was noted to be slightly chronic, likely post-cholecystectomy. Gastric emptying studies performed on 03/24/2025 confirmed gastroparesis. Today, the patient presents again with intractable nausea and vomiting, reporting 12 episodes in the past 24 hours. She was evaluated in the emergency department this morning. She received Compazine 10 mg IV, which resulted in improvement of her symptoms. ] REVIEW OF SYSTEMS CONSTITUTIONAL: Denies fevers, chills, or night sweats. No unintentional weight loss reported. NEUROLOGICAL: Denies headache, amaurosis fugax, motor weakness, sensory deficit, vertigo/spinning sensation, gait abnormalities, or tremors. ENT: No hearing loss, otalgia, otorrhea, rhinitis, rhinorrhea, hoarseness, or sore throat. CARDIOVASCULAR: Denies any exertional angina, dyspnea on exertion, orthopnea, paroxysmal nocturnal dyspnea, palpitations, life-threatening arrhythmias, cla udication. PULMONARY: Denies any shortness of breath, cough, phlegm/sputum, hemoptysis, pleuritic chest pain. SLEEP: Denies morning headaches, daytime somnolence or napping. Denies difficulty falling asleep, staying asleep, waking from sleep. Denies knowledge of snoring. GASTROINTESTINAL: Denies any type of dysphagia to either liquids or solids. Denies nausea, vomiting, pyrosis, early satiety, abdominal pain, diarrhea, constipation, or changes in stool consistency or caliber. Denies coffee-ground emesis, hematemesis, hematochezia, or melanotic stools. GENITOURINARY: Denies frequency, urgency, nocturia, hematuria or incontinence (Storage/Irritative symptoms.) Low urinary stream, straining to void, urinary intermittency or hesitancy, splitting of the voiding stream, terminal dribbling. ENDOCRINOLOGIC: Denies polyuria, polydipsia, polyphagia or heat/cold intolerances. HEMATOLOGIC: Denies thrombophilia/previous clots, or coagulopathy/bleeding disorders. ONCOLOGIC: Denies personal history of malignancy. DERMATOLOGIC: Denies rashes or pruritus. PSYCHIATRIC: Denies any suicidal or homicidal ideation. Denies hallucinations. PAST MEDICAL HISTORY: [Poorly controlled Diabetes mellitus type 2, recently diagnosed gastroparesis ] PAST SURGICAL HISTORY: [ Cholecystectomy, x6 ] PAST SOCIAL HISTORY: [Patient is unemployed, downgraded for smoking, alcohol, illicit drug use. ] FAMILY HISTORY: [Diabetes mellitus, hypertension, hyperlipidemia ] Coded Allergies: No Known Drug Allergies (Unverified Allergy, Unknown, 10/02/15) PHYSICAL EXAM GENERAL APPEARANCE: The patient is awake, alert, and oriented, in no acute cardiopulmonary distress. NEUROLOGICAL: Cranial nerves II-XII grossly intact. Motor is 5/5 in bilateral upper and lower extremities proximal to distal. No sensory deficits. HEENT: Face is symmetric. Pupils are equal and reactive. Extraocular movements are intact. NECK: Supple. No JVD. No thyromegaly. No submental, submandibular, pre- /postauricular, occipital or supraclavicular lymphadenopathy. CHEST: Normal chest expansion. No Telemetry. LUNGS: Absence of any rales, rhonchi or any wheezing. CARDIOVASCULAR: Regular. S1 and S2 normal. No appreciable rubs, murmurs or gallops. ABDOMEN: Soft, nontender, and nondistended. There is no rebound, voluntary guarding, or rigidity. : Deferred. No Nuñez. EXTREMITIES: Non-edematous and not cyanotic. No clubbing. Good capillary refill. SKIN: No skin breakdown. Vital Sign (Last 24 Hours) 04/15/25 04:40 Temp 98.1 Pulse 86 Resp 20 B/P (MAP) 160/97 Pulse Ox 97 O2 Delivery Room Air* O2 Flow Rate 0 FiO2 21 LABS: Laboratory: Test 04/15/25 04:39 Range/Units White Blood Count 7.6 4.8-10.8 K/uL Red Blood Count 3.96 L 4.00-5.50 MIL/uL Hemoglobin 11.0 L 12.0-16.0 g/dL Hematocrit 34.1 L 36-48 % Mean Corpuscular Volume 86.1 79-99 fL Mean Corpuscular Hemoglobin 27.8 27.0-33.0 pg Mean Corpuscular Hemoglobin Concent 32.3 32.0-36.0 g/dL Red Cell Distribution Width 14.6 11.0-15.5 % Platelet Count 337 130-400 K/uL Mean Platelet Volume 11.7 H 7.5-10.5 fL Immature Granulocyte % (Auto) 0.4 0-1 % Neutrophils (%) (Auto) 85.6 H 40.0-77.0 % Lymphocytes (%) (Auto) 11.3 L 21.0-51.0 % Monocytes (%) (Auto) 2.4 L 3.0-13.0 % Eosinophils (%) (Auto) 0.0 0.0-8.0 % Basophils (%) (Auto) 0.3 0.0-5.0 % Neutrophils # (Auto) 6.5 1.8-7.7 K/uL Lymphocytes # (Auto) 0.9 L 1.0-4.8 K/uL Monocytes # (Auto) 0.2 0.1-1.0 K/uL Eosinophils # (Auto) 0.00 0.00-0.70 K/uL Basophils # (Auto) 0.02 0.00-0.20 K/uL Absolute Immature Granulocyte (auto 0.03 0-1 K/uL Nucleated Red Blood Cells 0.0 0.0-0.19 % Sodium Level 135 L 136-145 mmol/L Potassium Level 4.0 3.5-5.1 mmol/L Chloride Level 101 101-111 mmol/L Carbon Dioxide Level 23 21-32 mmol/L Blood Urea Nitrogen 5 L 7-18 mg/dL Creatinine 0.3 L 0.5-1.0 mg/dL Glomerular Filtration Rate Calc 140 >90 mL/min Random Glucose 285 H 70-105 mg/dL Whole Blood Ketones Quantitative 1.8 H 0.0-0.6 mmol/L Total Calcium 8.3 L 8.5-10.1 mg/dL Total Bilirubin 0.5 0.2-1.0 mg/dL Aspartate Amino Transf (AST/SGOT) 24 10-37 U/L Alanine Aminotransferase (ALT/SGPT) 25 12-78 U/L Alkaline Phosphatase 68 50-136 U/L Troponin I High Sensitivity < 4 L 4-50 ng/L Total Protein 7.5 6.0-8.3 g/dL Albumin 3.6 3.5-5.0 g/dL Lipase 13 L 16-77 U/L DIAGNOSTICS / RADIOLOGY: [ ] ASSESSMENT: [Poorly controlled diabetes mellitus with recurrent hospitalizations Gastroparesis, confirmed by gastric emptying study Chronic CBD stricture, post-cholecystectomy, no current evidence of obstruction Intractable nausea and vomiting, improved with Compazine Mild hyponatremia, acute kidney injury unlikely (creatinine low), hyperglycemia ] PLAN: [Admit for further management and monitoring Continue antiemetic therapy as needed Optimize glycemic control Monitor electrolytes and renal function GI consult for further evaluation of gastroparesis and CBD stricture as indicated IV fluids for hydration NPO or clear liquids as tolerated, advance diet as tolerated Monitor for signs of infection or other complications Patient referred to hospitalist service for ongoing management. ADVANCED CARE PLANNING 1. Which of the following were discussed? Hospice Care - Yes / No Therapeutic options - Yes / No Advance Directives - Yes / No Other discussions - 2. Discussed with who? Patient 3. Voluntary nature of this service was explained to the patient? Yes / No 4. Amount of time spent - __20 mins 5. Reviewed by Physician? (if this service was performed by NPP) Yes / No ] ATTESTATION BY PHYSICIAN I have seen and examined the patient. I reviewed the documentation, medical decision making, and treatment plan as noted by the mid-level provider above. I agree with the findings and plan of care. Anatoliy Shah IV, MD, [facility] Apr 15, 2025 07:21
[2025-04-15] MEDS ORDERED: DEXTROSE 50%-WATER 50 ML DISP.SYRIN IV PRN (07:30)
[2025-04-15] MEDS ORDERED: GLUCAGON 1MG KIT 1 MG ML IM PRN (07:30)
[2025-04-15] MEDS ORDERED: MAGNESIUM 2GM PREMIX 50ML 50 ML IV PRN (07:30)
[2025-04-15] MEDS: 0.9%NACL 1000ML 1,000 ML IV SCH (10:42)
[2025-04-15 10:52] LABS: PH, GASTRIC 2
[2025-04-15] MEDS: DEXTROSE 5 %-0.45 % NACL 1,000 ML IV SCH (11:00)
[2025-04-15 11:11] LABS: OCCULT BLOOD,GASTRIC FLUID POSITIVE (NEGATIVE)
--- NOTE | 2025-04-15 15:02 | NUR ---
REPORT GIVEN TO ANA AT THIS TIME
[2025-04-15 15:24] LABS: ADD UA MICROSCOPIC YES; APPEARANCE,URINE CLEAR (CLEAR); GLUCOSE, URINE (UA) >=1000 mg/dL (NEGATIVE); LEUKOCYTE ESTERASE ,URINE NEGATIVE Leu/uL (NEGATIVE); NITRATE,URINE NEGATIVE (NEGATIVE); OCCULT BLOOD,URINE NEGATIVE (NEGATIVE); SQUAMOUS EPITHELIAL CELL,UR RARE /HPF (0-2)
[2025-04-15 15:45] VITALS: O2SAT 97
[2025-04-15 16:41] VITALS: BP 98/55; PULSE 75; RESP 17
[2025-04-15 20:00] VITALS: BP 88/49; PULSE 86; RESP 16; TEMP 98.6
[2025-04-15 21:00] VITALS: O2SAT 95
[2025-04-15 21:40] VITALS: BP 91/57; PULSE 80
[2025-04-16] VITALS (8 sets, daily range): BP systolic 87–151; BP diastolic 50–95; PULSE 67–107; RESP 16–20; TEMP 98.1–98.4; O2SAT 98–99
--- NOTE | 2025-04-16 02:26 | NUR ---
labs labs from 04/15 0500 shown to michael martinez. repeat labs ordered already. pt not in distress.
[2025-04-16 03:57] LABS: NUCLEATED RED BLOOD CELLS 0.0 % (0.0-0.19); PLATELET COUNT (AUTO) 335.0 K/uL (130-400); RED BLOOD CELL COUNT(AUTO) 3.45 MIL/uL (4.00-5.50); RED CELL DISTRIBUTION WIDTH 15.0 % (11.0-15.5); WHITE BLOOD COUNT (AUTO) 6.8 K/uL (4.8-10.8)
[2025-04-16 04:15] LABS: ASPARTATE AMINOTRANSFERASE 12.0 U/L (10-37); CREATININE 0.3 mg/dL (0.5-1.0); GLOMERULAR FILTR. RATE CALC 140.0 mL/min (>90); GLUCOSE,RANDOM 146.0 mg/dL (70-105); SODIUM SERUM 142.0 mmol/L (136-145); TOTAL PROTEIN, SERUM 6.0 g/dL (6.0-8.3); UREA NITROGEN, BLOOD 12.0 mg/dL (7-18)
[2025-04-16] MEDS ORDERED: PHARMACY COMMUNICATION 1 EACH EACH MISC SCH (09:30)
--- NOTE | 2025-04-16 10:45 | NUR ---
PENDING NEW ORDER FOR IV TYLENOL Patient continues to complain of pain to mid abdominal area, unable to describe. Also complains of nausea. Physicians discussed with patient the addition of tylenol IV as she reported that she would not be able to tolerate swallowing. Explained to patient that as soon as orders were received, I would administer the IV tylenol. Discussed the frequency of ordered Zofran, and she was informed that next scheduled dose will be around 2:00pm. Verbalized understanding.
--- NOTE | 2025-04-16 11:18 | NUR ---
DCP:HOME Pt currently lives at home with her Stas Sandy [phone] and their children. Pt does receive $1500 in SNAP benefits a month. Pt does not have any DME, home health, or provider services. Pt states that she is able to complete ADLs independently. Pt does not have PCP, SW provided community resources for medical attention. At [place] pt will want to go home and family can assist with transportation. Addendum: 04/16/25 at 1120 by GAMAL SYED SS Amended: Links added.
--- NOTE | 2025-04-16 12:33 | NUR ---
NEW ORDERS RECEIVED Telephone call with Dr. Toure and new orders received. Patient will be given diabetic diet for lunch if patient is willing. Will administer Lantus and sliding scale insulin for blood glucose of 212.
--- NOTE | 2025-04-16 12:44 | CONS ---
GASTROENTEROLOGY CONSULTATION NOTE Date of Consultation: Apr 16, 2025 Time of Consultation: 12:39 Coded Allergies: No Known Drug Allergies (Unverified Allergy, Unknown, 10/02/15) Vital Sign (Last 24 Hours) 04/15/25 04/16/25 21:00 12:09 Temp 98.4 Pulse 98 Resp 18 B/P (MAP) 150/93 Pulse Ox 100 O2 Delivery Room Air O2 Flow Rate 0 FiO2 21 Intake & Output (last 24hrs) 04/15/25 04/15/25 04/16/25 15:00 23:00 07:00 Intake Total 850.0 ml Balance 850.0 ml Laboratory: [ ] Laboratory: Test 04/16/25 10:39 04/16/25 03:33 04/15/25 15:00 04/15/25 09:55 Range/Units Whole Blood Glucose 212 H 70-110 MG/DL White Blood Count 6.8 4.8-10.8 K/uL Red Blood Count 3.45 L 4.00-5.50 MIL/uL Hemoglobin 9.5 L 12.0-16.0 g/dL Hematocrit 30.4 L 36-48 % Mean Corpuscular Volume 88.1 79-99 fL Mean Corpuscular Hemoglobin 27.5 27.0-33.0 pg Mean Corpuscular Hemoglobin Concent 31.3 L 32.0-36.0 g/dL Red Cell Distribution Width 15.0 11.0-15.5 % Platelet Count 335 130-400 K/uL Mean Platelet Volume 11.0 H 7.5-10.5 fL Nucleated Red Blood Cells 0.0 0.0-0.19 % Sodium Level 142 136-145 mmol/L Potassium Level 3.1 L 3.5-5.1 mmol/L Chloride Level 107 101-111 mmol/L Carbon Dioxide Level 25 21-32 mmol/L Blood Urea Nitrogen 12 7-18 mg/dL Creatinine 0.3 L 0.5-1.0 mg/dL Glomerular Filtration Rate Calc 140 >90 mL/min Random Glucose 146 H 70-105 mg/dL Total Calcium 8.0 L 8.5-10.1 mg/dL Total Bilirubin 0.4 0.2-1.0 mg/dL Aspartate Amino Transf (AST/SGOT) 12 10-37 U/L Alanine Aminotransferase (ALT/SGPT) 21 12-78 U/L Alkaline Phosphatase 51 50-136 U/L Total Protein 6.0 6.0-8.3 g/dL Albumin 2.8 #L 3.5-5.0 g/dL Urine Color LIGHT-YELLOW YELLOW Urine Appearance CLEAR CLEAR Urine pH 6.0 5.0-8.0 Urine Specific [place] 1.032 H 1.001-1.031 Urine Protein 10 H NEGATIVE mg/dL Urine Glucose (UA) >=1000 H NEGATIVE mg/dL Urine Ketones 150 H NEGATIVE mg/dL Urine Occult Blood NEGATIVE NEGATIVE Urine Nitrate NEGATIVE NEGATIVE Urine Bilirubin NEGATIVE NEGATIVE mg/dL Urine Urobilinogen 0.2 0.2-1.0 mg/dL Urine Leukocyte Esterase NEGATIVE NEGATIVE Claudette/uL Urine RBC 0-1 0-1 /HPF Urine WBC 2-5 H 0-1 /HPF Urine Squamous Epithelial Cells RARE 0-2 /HPF Urine Bacteria None None Seen /HPF Gastric Fluid Occult Blood POSITIVE H NEGATIVE Test 04/15/25 04:39 Range/Units Immature Granulocyte % (Auto) 0.4 0-1 % Neutrophils (%) (Auto) 85.6 H 40.0-77.0 % Lymphocytes (%) (Auto) 11.3 L 21.0-51.0 % Monocytes (%) (Auto) 2.4 L 3.0-13.0 % Eosinophils (%) (Auto) 0.0 0.0-8.0 % Basophils (%) (Auto) 0.3 0.0-5.0 % Neutrophils # (Auto) 6.5 1.8-7.7 K/uL Lymphocytes # (Auto) 0.9 L 1.0-4.8 K/uL Monocytes # (Auto) 0.2 0.1-1.0 K/uL Eosinophils # (Auto) 0.00 0.00-0.70 K/uL Basophils # (Auto) 0.02 0.00-0.20 K/uL Absolute Immature Granulocyte (auto 0.03 0-1 K/uL Whole Blood Ketones Quantitative 1.8 H 0.0-0.6 mmol/L Troponin I High Sensitivity < 4 L 4-50 ng/L Lipase 13 L 16-77 U/L Current Medications Medications (Trade) Dose Ordered Sig/Neva Route PRN Reason Start Time Stop Time Status Last Admin Dose Admin Acetaminophen (TYLenol 325MG TAB) 650 mg Q4H PRN PO TEMPERATURE GREATER THAN 101.5 04/15/25 07:30 04/16/25 12:19 DC Acetaminophen (TYLenol 325MG TAB) 650 mg Q6H PRN PO MILD PAIN (1-3) 04/15/25 07:30 04/16/25 12:19 DC Acetaminophen (acetaMINOPHEN) 1,000 mg Q6H6 PRN IVPB Abdominal pain 04/16/25 12:30 05/16/25 12:29 Dextrose (D50w) 50 ml AD PRN IV HYPOGLYCEMIA PROTOCOL 04/15/25 07:30 05/15/25 07:29 Dextrose/Sodium Chloride 1,000 ml @ 75 mls/hr [id number] IV 04/15/25 11:00 05/15/25 10:59 04/15/25 11:00 75 MLS/HR Glucagon (Glucagon 1mg Kit) 1 mg AD PRN IM HYPOGLYCEMIA PROTOCOL 04/15/25 07:30 05/15/25 07:29 Insulin Glargine (LANtus 100 UNITS/ML 10 ML VIAL) 15 units HS SQ 04/16/25 11:30 05/16/25 11:29 Insulin Human Regular (humuLIN R 100 UNIT/ML 3ML) INSULIN SLIDING SCAL... ACHS SQ 04/15/25 07:30 05/15/25 07:29 04/15/25 09:48 5 UNIT Magnesium Sulfate 50 ml @ 0 mls/hr PROTOCOL PRN IV MAGNESIUM PROTOCOL 04/15/25 07:30 05/15/25 07:29 Metoclopramide HCl (regLAN 10MG IV) 5 mg TIDAC IVP 04/15/25 07:30 05/15/25 07:29 04/16/25 12:16 5 MG Ondansetron HCl (zoFRAN 4MG INJ) 4 mg Q6H PRN IVP NAUSEA/VOMITING 04/15/25 07:30 05/15/25 07:29 04/16/25 06:36 4 MG Pantoprazole Sodium (PROTonix 40MG INJ) 40 mg BID IVP 04/16/25 21:00 05/16/25 20:59 Pharmacy Profile Note (Lace Assessment) 1 each AD MISC 04/16/25 09:30 04/16/25 09:07 DC Potassium Chloride 100 ml @ 50 mls/hr AD PRN IV POTASSIUM PROTOCOL 04/15/25 07:30 11/12/25 07:29 04/16/25 12:16 50 MLS/HR Sodium Chloride 1,000 ml @ 75 mls/hr [id number] IV 04/15/25 07:30 05/15/25 07:29 04/16/25 06:39 75 MLS/HR Diagnostics / Radiology: [COPY/PASTE HERE IF NO REPORTS PLEASE DELETE SECTION] JULIETA CEDILLO MUD [employer]PERER Apr 16, 2025 12:44
--- NOTE | 2025-04-16 13:00 | NUR ---
NURSING NOTE Plan of care discussed with patient regarding advancing diet and administration of ordered insulin. Patient is able to verbalize signs and symptoms that are patient specific to hypoglycemic episodes. Will continue to monitor patient and meal intake.
--- NOTE | 2025-04-16 13:38 | PN ---
[facility] PROGRESS NOTE Date of Service: Apr 16, 2025 Time of Service: 13:38 SUBJECTIVE: This is a 39-year-old female with history of poorly-controlled diabetes mellitus presented to the ED with intractable nausea, vomiting, and epigastric pain for the past 12 hours. She had around 12 episodes of nonbloody, nonbilious vomiting since yesterday. Patient also says she has epigastric pain, constant in dur ation, not associated with diarrhea. Patient had a history of several hospital admissions for similar symptoms and in the most recent admission she underwent MRCP that revealed the common bile duct stricture and subsequently underwent ERCP with a sphincterotomy. At the same time a gastric emptying study was also performed that revealed gastroparesis but patient failed to follow up with GI later on. Patient says she does not have a PCP and currently uses [id number] insulin NovoLog 25 units in the morning and 15 units in the night. Patient reports she missed a dose of p.m. insulin due to nausea at home. On admission she had blood pressure of 160/97, heart rate of 87, respiratory rate of 17. Her whole blood glucose was 285, whole blood ketones 1.8, and high urinary ketones. Her serum bicarbonate was 23, lipase , gastric emesis positive for occult blood. Her anion gap was 11. This morning patient still complained of nausea and an episode of nonbilious nonbloody vomiting. Patient reported epigastric pain and was unable to tolerate any food or even p.o. medications. Patient was given IV Protonix 40 mg and parenteral acetaminophen. Gastroenterology recommended to continue IV Protonix and no endoscopic intervention is indicated at this time. Patient's bicarbonate is 25 and anion gap is closed at 10. Patient was started on soft GI diet as tolerated and 15 units of insulin glargine was started. REVIEW OF SYSTEMS CONSTITUTIONAL: Denies fevers, chills, or night sweats. No unintentional weight loss reported. NEUROLOGICAL: Denies headache, motor weakness, sensory deficit, vertigo/spinning sensation CARDIOVASCULAR: Denies any exertional angina, dyspnea on exertion, orthopnea, paroxysmal nocturnal dyspnea, palpitations PULMONARY: Denies any shortness of breath, cough, phlegm/sputum, hemoptysis, pleuritic chest pain. GASTROINTESTINAL: Denies any type of dysphagia to either liquids or solids. Admits to nausea, vomiting, epigastric abdominal pain, denies diarrhea, constipation GENITOURINARY: Denies frequency, urgency, nocturia, hematuria or incontinence DERMATOLOGIC: Denies rashes, itching, redness. PHYSICAL EXAM GENERAL APPEARANCE: The patient is awake, alert, and oriented, in no acute cardiopulmonary distress. NEUROLOGICAL: Cranial nerves II-XII grossly intact. Motor is 5/5 in bilateral upper and lower extremities proximal to distal. No sensory deficits. HEENT: Face is symmetric. Pupils are equal and reactive. Extraocular movements are intact. NECK: Supple. No JVD. No thyromegaly. No submental, submandibular, pre- /postauricular, occipital or supraclavicular lymphadenopathy. CHEST: Normal chest expansion. No Telemetry. LUNGS: Absence of any rales, rhonchi or any wheezing. CARDIOVASCULAR: Regular. S1 and S2 normal. No appreciable rubs, murmurs or gallops. ABDOMEN: Soft, nontender, and nondistended. There is no rebound, voluntary guarding, or rigidity. : Deferred. No Nuñez. EXTREMITIES: Non-edematous and not cyanotic. No clubbing. Good capillary refill. SKIN: No skin breakdown. Vital Signs (last 8hr) Date Time Temp Pulse Resp B/P (MAP) Pulse Ox O2 Delivery O2 Flow Rate FiO2 04/16/25 12:09 98.4 98 18 150/93 100 Room Air 04/16/25 07:51 98.1 103 19 145/94 99 Room Air LABS: Laboratory: Test 04/16/25 10:39 04/16/25 03:33 04/15/25 15:00 04/15/25 09:55 Range/Units Whole Blood Glucose 212 H 70-110 MG/DL White Blood Count 6.8 4.8-10.8 K/uL Red Blood Count 3.45 L 4.00-5.50 MIL/uL Hemoglobin 9.5 L 12.0-16.0 g/dL Hematocrit 30.4 L 36-48 % Mean Corpuscular Volume 88.1 79-99 fL Mean Corpuscular Hemoglobin 27.5 27.0-33.0 pg Mean Corpuscular Hemoglobin Concent 31.3 L 32.0-36.0 g/dL Red Cell Distribution Width 15.0 11.0-15.5 % Platelet Count 335 130-400 K/uL Mean Platelet Volume 11.0 H 7.5-10.5 fL Nucleated Red Blood Cells 0.0 0.0-0.19 % Sodium Level 142 136-145 mmol/L Potassium Level 3.1 L 3.5-5.1 mmol/L Chloride Level 107 101-111 mmol/L Carbon Dioxide Level 25 21-32 mmol/L Blood Urea Nitrogen 12 7-18 mg/dL Creatinine 0.3 L 0.5-1.0 mg/dL Glomerular Filtration Rate Calc 140 >90 mL/min Random Glucose 146 H 70-105 mg/dL Total Calcium 8.0 L 8.5-10.1 mg/dL Total Bilirubin 0.4 0.2-1.0 mg/dL Aspartate Amino Transf (AST/SGOT) 12 10-37 U/L Alanine Aminotransferase (ALT/SGPT) 21 12-78 U/L Alkaline Phosphatase 51 50-136 U/L Total Protein 6.0 6.0-8.3 g/dL Albumin 2.8 #L 3.5-5.0 g/dL Urine Color LIGHT-YELLOW YELLOW Urine Appearance CLEAR CLEAR Urine pH 6.0 5.0-8.0 Urine Specific [place] 1.032 H 1.001-1.031 Urine Protein 10 H NEGATIVE mg/dL Urine Glucose (UA) >=1000 H NEGATIVE mg/dL Urine Ketones 150 H NEGATIVE mg/dL Urine Occult Blood NEGATIVE NEGATIVE Urine Nitrate NEGATIVE NEGATIVE Urine Bilirubin NEGATIVE NEGATIVE mg/dL Urine Urobilinogen 0.2 0.2-1.0 mg/dL Urine Leukocyte Esterase NEGATIVE NEGATIVE Claud[place]/uL Urine RBC 0-1 0-1 /HPF Urine WBC 2-5 H 0-1 /HPF Urine Squamous Epithelial Cells RARE 0-2 /HPF Urine Bacteria None None Seen /HPF Gastric Fluid Occult Blood POSITIVE H NEGATIVE Test 04/15/25 04:39 Range/Units Immature Granulocyte % (Auto) 0.4 0-1 % Neutrophils (%) (Auto) 85.6 H 40.0-77.0 % Lymphocytes (%) (Auto) 11.3 L 21.0-51.0 % Monocytes (%) (Auto) 2.4 L 3.0-13.0 % Eosinophils (%) (Auto) 0.0 0.0-8.0 % Basophils (%) (Auto) 0.3 0.0-5.0 % Neutrophils # (Auto) 6.5 1.8-7.7 K/uL Lymphocytes # (Auto) 0.9 L 1.0-4.8 K/uL Monocytes # (Auto) 0.2 0.1-1.0 K/uL Eosinophils # (Auto) 0.00 0.00-0.70 K/uL Basophils # (Auto) 0.02 0.00-0.20 K/uL Absolute Immature Granulocyte (auto 0.03 0-1 K/uL Whole Blood Ketones Quantitative 1.8 H 0.0-0.6 mmol/L Troponin I High Sensitivity < 4 L 4-50 ng/L Lipase 13 L 16-77 U/L Current Medications Medications (Trade) Dose Ordered Sig/Neva Route PRN Reason Start Time Stop Time Status Last Admin Dose Admin Acetaminophen (TYLenol 325MG TAB) 650 mg Q4H PRN PO TEMPERATURE GREATER THAN 101.5 04/15/25 07:30 04/16/25 12:19 DC Acetaminophen (TYLenol 325MG TAB) 650 mg Q6H PRN PO MILD PAIN (1-3) 04/15/25 07:30 04/16/25 12:19 DC Acetaminophen (acetaMINOPHEN) 1,000 mg Q6H6 PRN IVPB Abdominal pain 04/16/25 12:30 05/16/25 12:29 04/16/25 13:06 1,000 MG Dextrose (D50w) 50 ml AD PRN IV HYPOGLYCEMIA PROTOCOL 04/15/25 07:30 05/15/25 07:29 Dextrose/Sodium Chloride 1,000 ml @ 75 mls/hr [id number] IV 04/15/25 11:00 05/15/25 10:59 04/15/25 11:00 75 MLS/HR Glucagon (Glucagon 1mg Kit) 1 mg AD PRN IM HYPOGLYCEMIA PROTOCOL 04/15/25 07:30 05/15/25 07:29 Insulin Glargine (LANtus 100 UNITS/ML 10 ML VIAL) 15 units HS SQ 04/16/25 11:30 05/16/25 11:29 04/16/25 13:03 15 UNITS Insulin Human Regular (humuLIN R 100 UNIT/ML 3ML) INSULIN SLIDING SCAL... ACHS SQ 04/15/25 07:30 05/15/25 07:29 04/16/25 13:04 3 UNIT Magnesium Sulfate 50 ml @ 0 mls/hr PROTOCOL PRN IV MAGNESIUM PROTOCOL 04/15/25 07:30 05/15/25 07:29 Metoclopramide HCl (regLAN 10MG IV) 5 mg TIDAC IVP 04/15/25 07:30 05/15/25 07:29 04/16/25 12:16 5 MG Ondansetron HCl (zoFRAN 4MG INJ) 4 mg Q6H PRN IVP NAUSEA/VOMITING 04/15/25 07:30 05/15/25 07:29 04/16/25 06:36 4 MG Pantoprazole Sodium (PROTonix 40MG INJ) 40 mg BID IVP 04/16/25 21:00 05/16/25 20:59 Pharmacy Profile Note (Lace Assessment) 1 each AD MISC 04/16/25 09:30 04/16/25 09:07 DC Potassium Chloride 100 ml @ 50 mls/hr AD PRN IV POTASSIUM PROTOCOL 04/15/25 07:30 05/15/25 07:29 04/16/25 12:16 50 MLS/HR Sodium Chloride 1,000 ml @ 75 mls/hr [id number] IV 04/15/25 07:30 05/15/25 07:29 04/16/25 06:39 75 MLS/HR DIAGNOSTICS / RADIOLOGY: [ ] ASSESSMENT: Poorly controlled diabetes mellitus with recurrent hospitalizations Mild DKA, POA, resolved Gastroparesis, confirmed by gastric emptying study Chronic CBD stricture, post-cholecystectomy, no current evidence of obstruction Intractable nausea and vomiting Hyperglycemia Hypokalemia PLAN: Mild DKA in patient with poorly controlled diabetes, POA, resolved * Patient's blood sugar on admission was 285, serum ketones 1.8, serum bicarbonate 23, urine ketones 150 * Anion gap was 11 * Patient hydrated with normal saline and D5 NS and treated with insulin regular sliding scale * P.r.n. ondansetron 4 g q.6 * Patient started on 15 units of insulin glargine Gastroparesis, confirmed by gap gastric emptying study 03/24/2025 * Gastric emptying study confirmed gastroparesis and patient was advised to follow up with GI and a paper prescription with metoclopramide was given * Patient apparently lost the prescription and was lost to follow up * Continue IV metoclopramide 5 mg t.i.d. * P.r.n. ondansetron for nausea, GI soft diet as tolerated Chronic CBD stricture, status post sphincterotomy with ERCP * Patient underwent ERCP with sphincterotomy for chronic CBD stricture on 03/27/2025 * AST, ALT, alkaline phosphatase, and lipase levels were normal * Gastroenterology recommended continuing IV Protonix and follow up at [facility] upon discharge Intractable nausea, vomiting, and epigastric abdominal pain * Patient had 12 episodes of nonbilious nonbloody vomiting prior to admission and episode of emesis this morning * Patient received Compazine while in the ED that relieved her nausea * We will continue PRN ondansetron 4 g q.6 * Continue IV Protonix 40 mg b.i.d. * Continue GI soft diet and avoid foods with strong smells DVT prophylaxis with SCDs ATTESTATION BY PHYSICIAN I have seen and examined the patient. I reviewed the documentation, medical decision making, and treatment plan as noted by the resident physician above. I agree with the findings and plan of care. ROSANNA VALENZUELA MD, HARSHAVARDHA MD Apr 16, 2025 13:38
--- NOTE | 2025-04-16 14:33 | NUR ---
Nutritional Note: Chart, meds, and labs Reviewed. Pt continues to feel nauseous, pt unable to finish answering questions due to n/v. Pt reported unintentional wt loss UBW 150# in 2-3 months due to current condition. Pt stated that she is not able to eat foods. Pt agreed to BRAT style diet for now until n/v resolves. Recommend: -BRAT diet -Continue NPO per medical management; reassess for oral tolerance. - if prolong (>3-5days), consider EN via NG tube - if unable to tolerate EN, evaluated for PN due to malabsorption risk. - Electrolyte replacements per protocol -Monitor feeding tolerance, %, wt, and labs -Document PO intake and wt daily. -If No BM >3days consider bowel stimulant. -Consider appetite stimulant if intake remains <75%for 3 days. -Schedule outpatient RD f/u for long-term nutrition care. - Notify RD if additional nutrition concerns arise. SEE RD Nutritional Assessment for additional assessment information. Addendum: 04/16/25 at [address] Amended: Links added.
[2025-04-17] VITALS (7 sets, daily range): BP systolic 110–154; BP diastolic 67–98; PULSE 70–91; RESP 15–20; TEMP 97.7–98.4; O2SAT 0
[2025-04-17 03:53] LABS: NUCLEATED RED BLOOD CELLS 0.0 % (0.0-0.19); PLATELET COUNT (AUTO) 305.0 K/uL (130-400); RED BLOOD CELL COUNT(AUTO) 4.01 MIL/uL (4.00-5.50); RED CELL DISTRIBUTION WIDTH 14.6 % (11.0-15.5); WHITE BLOOD COUNT (AUTO) 5.2 K/uL (4.8-10.8)
[2025-04-17 04:13] LABS: CREATININE 0.3 mg/dL (0.5-1.0); GLOMERULAR FILTR. RATE CALC 140.0 mL/min (>90); GLUCOSE,RANDOM 161.0 mg/dL (70-105); SODIUM SERUM 136.0 mmol/L (136-145); UREA NITROGEN, BLOOD 6.0 mg/dL (7-18)
[2025-04-17] MEDS ORDERED: PoTASSium chloRIDE 20MEQ ER 20 MEQ ERTAB PO PRN (08:00)
--- NOTE | 2025-04-17 14:04 | PN ---
[facility] PROGRESS NOTE Date of Service: Apr 17, 2025 Time of Service: 14:04 SUBJECTIVE: This is a 39-year-old female with history of poorly-controlled diabetes mellitus presented to the ED with intractable nausea, vomiting, and epigastric pain for the past 12 hours. She had around 12 episodes of nonbloody, nonbilious vomiting since yesterday. Patient also says she has epigastric pain, constant in dur ation, not associated with diarrhea. Patient had a history of several hospital admissions for similar symptoms and in the most recent admission she underwent MRCP that revealed the common bile duct stricture and subsequently underwent ERCP with a sphincterotomy. At the same time a gastric emptying study was also performed that revealed gastroparesis but patient failed to follow up with GI later on. Patient says she does not have a PCP and currently uses [id number] insulin NovoLog 25 units in the morning and 15 units in the night. Patient reports she missed a dose of p.m. insulin due to nausea at home. On admission she had blood pressure of 160/97, heart rate of 87, respiratory rate of 17. Her whole blood glucose was 285, whole blood ketones 1.8, and high urinary ketones. Her serum bicarbonate was 23, lipase , gastric emesis positive for occult blood. Her anion gap was 11. This morning patient still complained of nausea and an episode of nonbilious nonbloody vomiting. Patient reported epigastric pain and was unable to tolerate any food or even p.o. medications. Patient was given IV Protonix 40 mg and parenteral acetaminophen. Gastroenterology recommended to continue IV Protonix and no endoscopic intervention is indicated at this time. Patient's bicarbonate is 25 and anion gap is closed at 10. Patient was started on soft GI diet as tolerated and 15 units of insulin glargine was started. 04/17/2025: Patient was evaluated at bedside in room 430. Patient still reported epigastric pain, nausea, and 5 episodes of nonbilious nonbloody vomiting since yesterday evening. Patient reports Zofran was not relieving her nausea and hence Marinol was added. She has not been able to tolerate any diet since yesterday. Patient ketones were still elevated at 2 but her anion gap is normal. Patient to be continued on D5 normal saline, basal insulin and insulin sliding scale. We will change her diet to full liquid and advanced as tolerated. REVIEW OF SYSTEMS CONSTITUTIONAL: Denies fevers, chills, or night sweats. No unintentional weight loss reported. NEUROLOGICAL: Denies headache, motor weakness, sensory deficit, vertigo/spinning sensation CARDIOVASCULAR: Denies any exertional angina, dyspnea on exertion, orthopnea, paroxysmal nocturnal dyspnea, palpitations PULMONARY: Denies any shortness of breath, cough, phlegm/sputum, hemoptysis, pleuritic chest pain. GASTROINTESTINAL: Denies any type of dysphagia to either liquids or solids. Admits to nausea, vomiting, epigastric abdominal pain, denies diarrhea, con stipation GENITOURINARY: Denies frequency, urgency, nocturia, hematuria or incontinence DERMATOLOGIC: Denies rashes, itching, redness. PHYSICAL EXAM GENERAL APPEARANCE: The patient is awake, alert, and oriented, in no acute cardiopulmonary distress. NEUROLOGICAL: Cranial nerves II-XII grossly intact. Motor is 5/5 in bilateral upper and lower extremities proximal to distal. No sensory deficits. HEENT: Face is symmetric. Pupils are equal and reactive. Extraocular movements are intact. NECK: Supple. No JVD. No thyromegaly. No submental, submandibular, pre- /postauricular, occipital or supraclavicular lymphadenopathy. CHEST: Normal chest expansion. No Telemetry. LUNGS: Absence of any rales, rhonchi or any wheezing. CARDIOVASCULAR: Regular. S1 and S2 normal. No appreciable rubs, murmurs or gallops. ABDOMEN: Soft, nontender, and nondistended. There is no rebound, voluntary g uarding, or rigidity. : Deferred. No Nuñez. EXTREMITIES: Non-edematous and not cyanotic. No clubbing. Good capillary refill. SKIN: No skin breakdown. Vital Signs (last 8hr) Date Time Temp Pulse Resp B/P (MAP) Pulse Ox O2 Delivery O2 Flow Rate FiO2 04/17/25 09:00 0 Room Air* 0 21 04/17/25 08:00 98.2 91 15 154/82 97 Room Air LABS: Laboratory: Test 04/17/25 11:02 04/17/25 08:06 04/17/25 03:00 04/16/25 03:33 Range/Units Whole Blood Glucose 175 H 70-110 MG/DL Whole Blood Ketones Quantitative 2.0 H 0.0-0.6 mmol/L White Blood Count 5.2 4.8-10.8 K/uL Red Blood Count 4.01 4.00-5.50 MIL/uL Hemoglobin 11.0 L 12.0-16.0 g/dL Hematocrit 35.3 L 36-48 % Mean Corpuscular Volume 88.0 79-99 fL Mean Corpuscular Hemoglobin 27.4 27.0-33.0 pg Mean Corpuscular Hemoglobin Concent 31.2 L 32.0-36.0 g/dL Red Cell Distribution Width 14.6 11.0-15.5 % Platelet Count 305 130-400 K/uL Mean Platelet Volume 12.0 H 7.5-10.5 fL Nucleated Red Blood Cells 0.0 0.0-0.19 % Sodium Level 136 136-145 mmol/L Potassium Level 3.0 *L 3.5-5.1 mmol/L Chloride Level 100 L 101-111 mmol/L Carbon Dioxide Level 26 21-32 mmol/L Blood Urea Nitrogen 6 L 7-18 mg/dL Creatinine 0.3 L 0.5-1.0 mg/dL Glomerular Filtration Rate Calc 140 >90 mL/min Random Glucose 161 H 70-105 mg/dL Total Calcium 8.2 L 8.5-10.1 mg/dL Total Bilirubin 0.4 0.2-1.0 mg/dL Aspartate Amino Transf (AST/SGOT) 12 10-37 U/L Alanine Aminotransferase (ALT/SGPT) 21 12-78 U/L Alkaline Phosphatase 51 50-136 U/L Total Protein 6.0 6.0-8.3 g/dL Albumin 2.8 #L 3.5-5.0 g/dL Test 04/15/25 15:00 Range/Units Urine Color LIGHT-YELLOW YELLOW Urine Appearance CLEAR CLEAR Urine pH 6.0 5.0-8.0 Urine Specific Fouke 1.032 H 1.001-1.031 Urine Protein 10 H NEGATIVE mg/dL Urine Glucose (UA) >=1000 H NEGATIVE mg/dL Urine Ketones 150 H NEGATIVE mg/dL Urine Occult Blood NEGATIVE NEGATIVE Urine Nitrate NEGATIVE NEGATIVE Urine Bilirubin NEGATIVE NEGATIVE mg/dL Urine Urobilinogen 0.2 0.2-1.0 mg/dL Urine Leukocyte Esterase NEGATIVE NEGATIVE Claudette/uL Urine RBC 0-1 0-1 /HPF Urine WBC 2-5 H 0-1 /HPF Urine Squamous Epithelial Cells RARE 0-2 /HPF Urine Bacteria None None Seen /HPF Current Medications Medications (Trade) Dose Ordered Sig/Neva Route PRN Reason Start Time Stop Time Status Last Admin Dose Admin Acetaminophen (TYLenol 325MG TAB) 650 mg Q4H PRN PO TEMPERATURE GREATER THAN 101.5 04/15/25 07:30 04/16/25 12:19 DC Acetaminophen (TYLenol 325MG TAB) 650 mg Q6H PRN PO MILD PAIN (1-3) 04/15/25 07:30 04/16/25 12:19 DC Acetaminophen (acetaMINOPHEN) 1,000 mg Q6H6 PRN IVPB Abdominal pain 04/16/25 12:30 05/16/25 12:29 04/17/25 06:31 1,000 MG Dextrose (D50w) 50 ml AD PRN IV HYPOGLYCEMIA PROTOCOL 04/15/25 07:30 05/15/25 07:29 Dextrose/Sodium Chloride 1,000 ml @ 75 mls/hr [id number] IV 04/15/25 11:00 05/15/25 10:59 04/17/25 13:39 75 MLS/HR Glucagon (Glucagon 1mg Kit) 1 mg AD PRN IM HYPOGLYCEMIA PROTOCOL 04/15/25 07:30 05/15/25 07:29 Insulin Glargine (LANtus 100 UNITS/ML 10 ML VIAL) 15 units HS SQ 04/16/25 11:30 05/16/25 11:29 04/16/25 22:08 15 UNITS Insulin Human Regular (humuLIN R 100 UNIT/ML 3ML) INSULIN SLIDING SCAL... ACHS SQ 04/15/25 07:30 05/15/25 07:29 04/16/25 22:10 2 UNIT Magnesium Sulfate 50 ml @ 0 mls/hr PROTOCOL PRN IV MAGNESIUM PROTOCOL 04/15/25 07:30 05/15/25 07:29 Metoclopramide HCl (regLAN 10MG IV) 5 mg TIDAC IVP 04/15/25 07:30 05/15/25 07:29 04/17/25 13:37 5 MG Ondansetron HCl (zoFRAN 4MG INJ) 4 mg Q6H PRN IVP NAUSEA/VOMITING 04/15/25 07:30 05/15/25 07:29 04/17/25 06:30 4 MG Pantoprazole Sodium (PROTonix 40MG INJ) 40 mg BID IVP 04/16/25 21:00 05/16/25 20:59 04/17/25 09:11 40 MG Pharmacy Profile Note (Lace Assessment) 1 each AD MISC 04/16/25 09:30 04/16/25 09:07 DC Potassium Chloride 100 ml @ 50 mls/hr AD PRN IV POTASSIUM PROTOCOL 04/15/25 07:30 05/15/25 07:29 04/17/25 13:37 50 MLS/HR Potassium Chloride 100 ml @ 100 mls/hr AD PRN IV POTASSIUM PROTOCOL 04/17/25 08:00 05/17/25 07:59 Potassium Chloride (K-Dur/Klor-Con 20meq) 20 meq AD PRN PO POTASSIUM PROTOCOL 04/17/25 08:00 05/17/25 07:59 Potassium Chloride (KCl 10% Elixir 20meq/15ml) 20 meq AD PRN PO POTASSIUM PROTOCOL 04/17/25 08:00 05/17/25 07:59 Sodium Chloride 1,000 ml @ 75 mls/hr [id number] IV 04/15/25 07:30 05/15/25 07:29 04/17/25 01:48 75 MLS/HR DIAGNOSTICS / RADIOLOGY: [ ] ASSESSMENT: Poorly controlled diabetes mellitus with recurrent hospitalizations Mild DKA, POA,resolved Gastroparesis, confirmed by gastric emptying study Chronic CBD stricture, post-cholecystectomy, no current evidence of obstruction Intractable nausea and vomiting Hyperglycemia Hypokalemia PLAN: Mild DKA in patient with poorly controlled diabetes, POA,resolved * Patient's blood sugar on admission was 285, serum ketones 1.8, serum bicarbonate 23, urine ketones 150 * Blood glucose levels were 158 in the AM. Anion gap is 10 today * Glucometer checks q4 hrs. * Continue D5 half NS and treated with insulin regular sliding scale * P.r.n. ondansetron 4 g q.6 * Continue 15 units of insulin glargine Gastroparesis, confirmed by gap gastric emptying study 03/24/2025 * Gastric emptying study confirmed gastroparesis and patient was advised to follow up with GI and a paper prescription with metoclopramide was given * Patient apparently lost the prescription and was lost to follow up * Continue IV metoclopramide 5 mg t.i.d. * P.r.n. ondansetron for nausea, Full liquid diet and jellos as tolerated Chronic CBD stricture, status post sphincterotomy with ERCP * Patient underwent ERCP with sphincterotomy for chronic CBD stricture on 03/27/2025 * AST, ALT, alkaline phosphatase, and lipase levels were normal * Gastroenterology recommended continuing IV Protonix and follow up at [facility] upon discharge Intractable nausea, vomiting, and epigastric abdominal pain * Patient had 5 episodes of nonbilious nonbloody vomiting since yesterday evening * Patient received Compazine while in the ED that relieved her nausea * Patient reports Zofran not helping with nausea * Start Marinol 2.5 mg PO * Continue IV Protonix 40 mg b.i.d. * Continue full liquid diet and avoid foods with strong smells Hypokalemia * Patient k+ was 3 this morning * IV potassium replacement was done as per protocol * We will repeat serum electrolytes tomorrow AM DVT prophylaxis with SCDs ATTESTATION BY PHYSICIAN I have seen and examined the patient. I reviewed the documentation, medical decision making, and treatment plan as noted by the resident physician above. I agree with the findings and plan of care. ROSANNA VALENZUELA MD, HARSHAVARDHA MD Apr 17, 2025 14:04
--- NOTE | 2025-04-17 18:13 | CONS ---
GASTROENTEROLOGY CONSULTATION NOTE Date of Consultation: Apr 17, 2025 Time of Consultation: 18:12 History of Present Illness: [ 39-year-old female with past medical history for uncontrolled diabetes mellitus, We were consulted for epigastric pain, history of gastroparesis, status post ERCP. Patient had EGD on 02/01/2025 which showed normal esophagus, gastritis, normal examined duodenum. Patient underwent ERCP on 03/27/2025 with a biliary sphincterotomy performed and bile was swept from the duct. No stricture noted no filling defect noted and no other findings. Patient underwent a gastric emptying study and was found to have scintigraphic findings suggesting gastrop aresis. Patient has not followed up for further management. WBC of 6.8, initial hemoglobin of 11 has trended down to 9.5, platelets 335. Potassium 3.1, creatinine 0.3, glucose 146, calcium eight LFTs are normal except for albumin of 2.8, and lipase of 13. ]] Review of Systems: CONSTITUTIONAL: No malaise or change in sensation of wellbeing. ENMT: No rhinorrhea, otorrhea, sinus pain, ear ache. CARDIOVASCULAR: No angina, palpitations, orthopnea or paroxysmal dyspnea. RESPIRATORY: No SOB. GASTROINTESTINAL: No abdominal pain, nausea, vomiting, diarrhea, hematemesis, melena or change in the patient's habitual bowel movements consistency/number. GENITOURINARY: No dysuria, hematuria or change in bladder continence. MUSCULOSKELETAL: No new muscle pain or decrease in muscular strength. No new joint swelling, redness or tenderness. SKIN: No new rash. Past Medical History: [Poorly controlled Diabetes mellitus type 2, recently diagnosed gastroparesis ] PAST SURGICAL HISTORY: [ Cholecystectomy, x6 ] PAST SOCIAL HISTORY: [Patient is unemployed, downgraded for smoking, alcohol, illicit drug use. ] FAMILY HISTORY: [Diabetes mellitus, hypertension, hyperlipidemia ] Coded Allergies: No Known Drug Allergies (Unverified Allergy, Unknown, 10/02/15) Coded Allergies: No Known Drug Allergies (Unverified Allergy, Unknown, 10/02/15) Physical Exam: GEN: Awake, alert, oriented in person, time and place, and in no acute distress. HEENT: No rhinorrhea. Oral pharyngeal mucosa is pink, moist and within normal limits. CHEST: Lung auscultation revealed normal breath sounds bilaterally. CARDIAC:Heart sounds are regular. ABD: Soft, non-tender and not distended. No peritoneal signs on palpation. Normal bowel sounds. Last bm EXT: No cyanosis or clubbing. No edema. SKIN: Intact. No rashes. NEURO: Alert and oriented to name, place and person.No focal motor deficits. Normal speech. Vital Sign (Last 24 Hours) 04/17/25 04/17/25 09:00 16:00 Temp 98.4 Pulse 76 Resp 16 B/P (MAP) 110/73 Pulse Ox 95 O2 Delivery Room Air O2 Flow Rate 0 FiO2 21 Intake & Output (last 24hrs) 04/16/25 04/16/25 04/17/25 15:00 23:00 07:00 Intake Total 200.0 ml 950.0 ml 575.0 ml Balance 200.0 ml 950.0 ml 575.0 ml Laboratory: [ ] Laboratory: Test 04/17/25 15:43 04/17/25 08:06 04/17/25 03:00 04/16/25 03:33 Range/Units Whole Blood Glucose 153 H 70-110 MG/DL Whole Blood Ketones Quantitative 2.0 H 0.0-0.6 mmol/L White Blood Count 5.2 4.8-10.8 K/uL Red Blood Count 4.01 4.00-5.50 MIL/uL Hemoglobin 11.0 L 12.0-16.0 g/dL Hematocrit 35.3 L 36-48 % Mean Corpuscular Volume 88.0 79-99 fL Mean Corpuscular Hemoglobin 27.4 27.0-33.0 pg Mean Corpuscular Hemoglobin Concent 31.2 L 32.0-36.0 g/dL Red Cell Distribution Width 14.6 11.0-15.5 % Platelet Count 305 130-400 K/uL Mean Platelet Volume 12.0 H 7.5-10.5 fL Nucleated Red Blood Cells 0.0 0.0-0.19 % Sodium Level 136 136-145 mmol/L Potassium Level 3.0 *L 3.5-5.1 mmol/L Chloride Level 100 L 101-111 mmol/L Carbon Dioxide Level 26 21-32 mmol/L Blood Urea Nitrogen 6 L 7-18 mg/dL Creatinine 0.3 L 0.5-1.0 mg/dL Glomerular Filtration Rate Calc 140 >90 mL/min Random Glucose 161 H 70-105 mg/dL Total Calcium 8.2 L 8.5-10.1 mg/dL Total Bilirubin 0.4 0.2-1.0 mg/dL Aspartate Amino Transf (AST/SGOT) 12 10-37 U/L Alanine Aminotransferase (ALT/SGPT) 21 12-78 U/L Alkaline Phosphatase 51 50-136 U/L Total Protein 6.0 6.0-8.3 g/dL Albumin 2.8 #L 3.5-5.0 g/dL Current Medications Medications (Trade) Dose Ordered Sig/Neva Route PRN Reason Start Time Stop Time Status Last Admin Dose Admin Acetaminophen (TYLenol 325MG TAB) 650 mg Q4H PRN PO TEMPERATURE GREATER THAN 101.5 04/15/25 07:30 04/16/25 12:19 DC Acetaminophen (TYLenol 325MG TAB) 650 mg Q6H PRN PO MILD PAIN (1-3) 04/15/25 07:30 04/16/25 12:19 DC Acetaminophen (acetaMINOPHEN) 1,000 mg Q6H6 PRN IVPB Abdominal pain 04/16/25 12:30 05/16/25 12:29 04/17/25 17:59 1,000 MG Dextrose (D50w) 50 ml AD PRN IV HYPOGLYCEMIA PROTOCOL 04/15/25 07:30 05/15/25 07:29 Dextrose/Sodium Chloride 1,000 ml @ 75 mls/hr [id number] IV 04/15/25 11:00 05/15/25 10:59 04/17/25 13:39 75 MLS/HR Glucagon (Glucagon 1mg Kit) 1 mg AD PRN IM HYPOGLYCEMIA PROTOCOL 04/15/25 07:30 05/15/25 07:29 Insulin Glargine (LANtus 100 UNITS/ML 10 ML VIAL) 15 units HS SQ 04/16/25 11:30 05/16/25 11:29 04/16/25 22:08 15 UNITS Insulin Human Regular (humuLIN R 100 UNIT/ML 3ML) INSULIN SLIDING SCAL... ACHS SQ 04/15/25 07:30 05/15/25 07:29 04/16/25 22:10 2 UNIT Magnesium Sulfate 50 ml @ 0 mls/hr PROTOCOL PRN IV MAGNESIUM PROTOCOL 04/15/25 07:30 05/15/25 07:29 Metoclopramide HCl (regLAN 10MG IV) 5 mg TIDAC IVP 04/15/25 07:30 05/15/25 07:29 04/17/25 17:56 5 MG Ondansetron HCl (zoFRAN 4MG INJ) 4 mg Q6H PRN IVP NAUSEA/VOMITING 04/15/25 07:30 05/15/25 07:29 04/17/25 06:30 4 MG Pantoprazole Sodium (PROTonix 40MG INJ) 40 mg BID IVP 04/16/25 21:00 05/16/25 20:59 04/17/25 09:11 40 MG Pharmacy Profile Note (Lace Assessment) 1 each AD MISC 04/16/25 09:30 04/16/25 09:07 DC Potassium Chloride 100 ml @ 50 mls/hr AD PRN IV POTASSIUM PROTOCOL 04/15/25 07:30 05/15/25 07:29 04/17/25 13:37 50 MLS/HR Potassium Chloride 100 ml @ 100 mls/hr AD PRN IV POTASSIUM PROTOCOL 04/17/25 08:00 05/17/25 07:59 Potassium Chloride (K-Dur/Klor-Con 20meq) 20 meq AD PRN PO POTASSIUM PROTOCOL 04/17/25 08:00 05/17/25 07:59 Potassium Chloride (KCl 10% Elixir 20meq/15ml) 20 meq AD PRN PO POTASSIUM PROTOCOL 04/17/25 08:00 05/17/25 07:59 Sodium Chloride 1,000 ml @ 75 mls/hr [id number] IV 04/15/25 07:30 04/17/25 18:07 DC 04/17/25 01:48 75 MLS/HR Diagnostics / Radiology: [COPY/PASTE HERE IF NO REPORTS PLEASE DELETE SECTION] Assessment: [Abdominal pain Gastroparesis Melena Diabetes mellitus] Plan: [ Case discussed with Dr. Mederos No Gi endoscopic intervention at this time. Recommend Pantoprazole 40mg IV or po daily Recommend patient f/u at [facility] in 1 week for further management Please call with questions, concerns, and change in clinical status Thank you for allowing us to be part of this patient's care] JULIETA CEDILLOP Apr 17, 2025 18:13
[2025-04-17] MEDS: PoTASSium chl 10% ELIXIR 20MEQ 20 MEQ/15 ML UDCUP PO PRN (19:54)
[2025-04-18] VITALS (7 sets, daily range): BP systolic 95–147; BP diastolic 59–92; PULSE 76–100; RESP 16–20; TEMP 97.9–98.8; O2SAT 99
[2025-04-18 03:50] LABS: NUCLEATED RED BLOOD CELLS 0.0 % (0.0-0.19); PLATELET COUNT (AUTO) 469.0 K/uL (130-400); RED BLOOD CELL COUNT(AUTO) 4.13 MIL/uL (4.00-5.50); RED CELL DISTRIBUTION WIDTH 14.1 % (11.0-15.5); WHITE BLOOD COUNT (AUTO) 5.0 K/uL (4.8-10.8)
[2025-04-18 04:00] LABS: CREATININE 0.5 mg/dL (0.5-1.0); GLOMERULAR FILTR. RATE CALC 124.0 mL/min (>90); GLUCOSE,RANDOM 209.0 mg/dL (70-105); SODIUM SERUM 133.0 mmol/L (136-145); UREA NITROGEN, BLOOD 5.0 mg/dL (7-18)
--- NOTE | 2025-04-18 13:20 | PN ---
[facility] PROGRESS NOTE Date of Service: Apr 18, 2025 Time of Service: 13:20 SUBJECTIVE: This is a 39-year-old female with history of poorly-controlled diabetes mellitus presented to the ED with intractable nausea, vomiting, and epigastric pain for the past 12 hours. She had around 12 episodes of nonbloody, nonbilious vomiting since yesterday. Patient also says she has epigastric pain, constant in dur ation, not associated with diarrhea. Patient had a history of several hospital admissions for similar symptoms and in the most recent admission she underwent MRCP that revealed the common bile duct stricture and subsequently underwent ERCP with a sphincterotomy. At the same time a gastric emptying study was also performed that revealed gastroparesis but patient failed to follow up with GI later on. Patient says she does not have a PCP and currently uses [id number] insulin NovoLog 25 units in the morning and 15 units in the night. Patient reports she missed a dose of p.m. insulin due to nausea at home. On admission she had blood pressure of 160/97, heart rate of 87, respiratory rate of 17. Her whole blood glucose was 285, whole blood ketones 1.8, and high urinary ketones. Her serum bicarbonate was 23, lipase , gastric emesis positive for occult blood. Her anion gap was 11. This morning patient still complained of nausea and an episode of nonbilious nonbloody vomiting. Patient reported epigastric pain and was unable to tolerate any food or even p.o. medications. Patient was given IV Protonix 40 mg and parenteral acetaminophen. Gastroenterology recommended to continue IV Protonix and no endoscopic intervention is indicated at this time. Patient's bicarbonate is 25 and anion gap is closed at 10. Patient was started on soft GI diet as tolerated and 15 units of insulin glargine was started. 04/17/2025: Patient was evaluated at bedside in room 430. Patient still reported epigastric pain, nausea, and 5 episodes of nonbilious nonbloody vomiting since yesterday evening. Patient reports Zofran was not relieving her nausea and hence Marinol was added. She has not been able to tolerate any diet since yesterday. Patient ketones were still elevated at 2 but her anion gap is normal. Patient to be continued on D5 normal saline, basal insulin and insulin sliding scale. We will change her diet to full liquid and advanced as tolerated. 04/18/2025: Patient was evaluated bedside in room 430. Patient reported mild improvement in nausea however continues to have epigastric pain. Patient did not have any episodes of emesis today. We will continue to prescribe her Marinol and start on Carafate suspension. Diet has been changed to full liquid diet and has been partially able to tolerate. A fecal occult blood has been ordered. Patient will be continued on D5 NS and insulin. REVIEW OF SYSTEMS CONSTITUTIONAL: Denies fevers, chills, or night sweats. No unintentional weight loss reported. NEUROLOGICAL: Denies headache, motor weakness, sensory deficit, vertigo/spinning sensation CARDIOVASCULAR: Denies any exertional angina, dyspnea on exertion, orthopnea, paroxysmal nocturnal dyspnea, palpitations PULMONARY: Denies any shortness of breath, cough, phlegm/sputum, hemoptysis, pleuritic chest pain. GASTROINTESTINAL: Denies any type of dysphagia to either liquids or solids. Admits to nausea and epigastric abdominal pain, denies diarrhea, constipation GENITOURINARY: Denies frequency, urgency, nocturia, hematuria or incontinence DERMATOLOGIC: Denies rashes, itching, redness. PHYSICAL EXAM GENERAL APPEARANCE: The patient is awake, alert, and oriented, in no acute cardiopulmonary distress. NEUROLOGICAL: Cranial nerves II-XII grossly intact. Motor is 5/5 in bilateral upper and lower extremities proximal to distal. No sensory deficits. HEENT: Face is symmetric. Pupils are equal and reactive. Extraocular movements are intact. NECK: Supple. No JVD. No thyromegaly. No submental, submandibular, pre- /postauricular, occipital or supraclavicular lymphadenopathy. CHEST: Normal chest expansion. No Telemetry. LUNGS: Absence of any rales, rhonchi or any wheezing. CARDIOVASCULAR: Regular. S1 and S2 normal. No appreciable rubs, murmurs or gallops. ABDOMEN: Soft, nontender, and nondistended. Tenderness to palpation in epigastrium There is no rebound, voluntary guarding, or rigidity. : Deferred. No Nuñez. EXTREMITIES: Non-edematous and not cyanotic. No clubbing. Good capillary refill. SKIN: No skin breakdown. Vital Signs (last 8hr) Date Time Temp Pulse Resp B/P (MAP) Pulse Ox O2 Delivery O2 Flow Rate FiO2 04/18/25 12:00 98.8 100 17 96/70 98 Room Air 04/18/25 08:00 98.2 78 16 96/61 99 Room Air LABS: Laboratory: Test 04/18/25 11:06 04/18/25 03:05 04/17/25 08:06 Range/Units Whole Blood Glucose 149 H 70-110 MG/DL White Blood Count 5.0 4.8-10.8 K/uL Red Blood Count 4.13 4.00-5.50 MIL/uL Hemoglobin 11.4 L 12.0-16.0 g/dL Hematocrit 34.8 L 36-48 % Mean Corpuscular Volume 84.3 79-99 fL Mean Corpuscular Hemoglobin 27.6 27.0-33.0 pg Mean Corpuscular Hemoglobin Concent 32.8 32.0-36.0 g/dL Red Cell Distribution Width 14.1 11.0-15.5 % Platelet Count 469 #H 130-400 K/uL Mean Platelet Volume 10.9 H 7.5-10.5 fL Nucleated Red Blood Cells 0.0 0.0-0.19 % Sodium Level 133 L 136-145 mmol/L Potassium Level 3.5 3.5-5.1 mmol/L Chloride Level 96 L 101-111 mmol/L Carbon Dioxide Level 26 21-32 mmol/L Blood Urea Nitrogen 5 L 7-18 mg/dL Creatinine 0.5 0.5-1.0 mg/dL Glomerular Filtration Rate Calc 124 >90 mL/min Random Glucose 209 H 70-105 mg/dL Total Calcium 8.7 8.5-10.1 mg/dL Whole Blood Ketones Quantitative 2.0 H 0.0-0.6 mmol/L Current Medications Medications (Trade) Dose Ordered Sig/Neva Route PRN Reason Start Time Stop Time Status Last Admin Dose Admin Acetaminophen (TYLenol 325MG TAB) 650 mg Q4H PRN PO TEMPERATURE GREATER THAN 101.5 04/15/25 07:30 04/16/25 12:19 DC Acetaminophen (TYLenol 325MG TAB) 650 mg Q6H PRN PO MILD PAIN (1-3) 04/15/25 07:30 04/16/25 12:19 DC Acetaminophen (acetaMINOPHEN) 1,000 mg Q6H6 PRN IVPB Abdominal pain 04/16/25 12:30 05/16/25 12:29 04/18/25 09:29 1,000 MG Dextrose (D50w) 50 ml AD PRN IV HYPOGLYCEMIA PROTOCOL 04/15/25 07:30 05/15/25 07:29 Dextrose/Sodium Chloride 1,000 ml @ 75 mls/hr [id number] IV 04/15/25 11:00 05/15/25 10:59 04/18/25 06:40 75 MLS/HR Glucagon (Glucagon 1mg Kit) 1 mg AD PRN IM HYPOGLYCEMIA PROTOCOL 04/15/25 07:30 05/15/25 07:29 Insulin Glargine (LANtus 100 UNITS/ML 10 ML VIAL) 15 units HS SQ 04/16/25 11:30 05/16/25 11:29 04/17/25 20:05 15 UNITS Insulin Human Regular (humuLIN R 100 UNIT/ML 3ML) INSULIN SLIDING SCAL... ACHS SQ 04/15/25 07:30 05/15/25 07:29 04/18/25 06:50 3 UNIT Magnesium Sulfate 50 ml @ 0 mls/hr PROTOCOL PRN IV MAGNESIUM PROTOCOL 04/15/25 07:30 05/15/25 07:29 Metoclopramide HCl (regLAN 10MG IV) 5 mg TIDAC IVP 04/15/25 07:30 05/15/25 07:29 04/18/25 12:17 5 MG Ondansetron HCl (zoFRAN 4MG INJ) 4 mg Q6H PRN IVP NAUSEA/VOMITING 04/15/25 07:30 05/15/25 07:29 04/18/25 09:29 4 MG Pantoprazole Sodium (PROTonix 40MG INJ) 40 mg BID IVP 04/16/25 21:00 05/16/25 20:59 04/18/25 09:24 40 MG Pharmacy Profile Note (Lace Assessment) 1 each AD MISC 04/16/25 09:30 04/16/25 09:07 DC Potassium Chloride 100 ml @ 50 mls/hr AD PRN IV POTASSIUM PROTOCOL 04/15/25 07:30 05/15/25 07:29 04/17/25 13:37 50 MLS/HR Potassium Chloride 100 ml @ 100 mls/hr AD PRN IV POTASSIUM PROTOCOL 04/17/25 08:00 05/17/25 07:59 Potassium Chloride (K-Dur/Klor-Con 20meq) 20 meq AD PRN PO POTASSIUM PROTOCOL 04/17/25 08:00 05/17/25 07:59 Potassium Chloride (KCl 10% Elixir 20meq/15ml) 20 meq AD PRN PO POTASSIUM PROTOCOL 04/17/25 08:00 05/17/25 07:59 04/18/25 06:44 20 MEQ Sodium Chloride 1,000 ml @ 75 mls/hr [id number] IV 04/15/25 07:30 04/17/25 18:07 DC 04/17/25 01:48 75 MLS/HR DIAGNOSTICS / RADIOLOGY: [ ] ASSESSMENT: Poorly controlled diabetes mellitus with recurrent hospitalizations Mild DKA, POA,resolved Gastroparesis, confirmed by gastric emptying study Chronic CBD stricture, post-cholecystectomy and sphinno current evidence of obstruction Intractable nausea and vomiting Hyperglycemia Hypokalemia PLAN: Mild DKA in patient with poorly controlled diabetes,resolved * Patient's blood sugar on admission was 285, serum ketones 1.8, serum bicarbonate 23, urine ketones 150 * Blood glucose levels were 158 in the AM. Anion gap is 10 today * Glucometer checks q4 hrs. * Continue D5 half NS and treated with insulin regular sliding scale * P.r.n. ondansetron 4 g q.6 * Continue 15 units of insulin glargine Gastroparesis, confirmed by gastric emptying study 03/24/2025 * Gastric emptying study confirmed gastroparesis and patient was advised to follow up with GI and a paper prescription with metoclopramide was given * Patient apparently lost the prescription and was lost to follow up * Continue IV metoclopramide 5 mg t.i.d. * P.r.n. ondansetron for nausea, Full liquid diet and jellos as tolerated Chronic CBD stricture, status post sphincterotomy with ERCP * Patient underwent ERCP with sphincterotomy for chronic CBD stricture on 03/27/2025 * AST, ALT, alkaline phosphatase, and lipase levels were normal * Gastroenterology recommended continuing IV Protonix and follow up at [facility] upon discharge Intractable nausea, vomiting, and epigastric abdominal pain * Patient had no episodes of emesis today * Patient reports Zofran not helping with nausea * Start Marinol 2.5 mg PO Q6 prn * Continue IV Protonix 40 mg b.i.d. and start Carafate oral suspension * Continue full liquid diet and avoid foods with strong smells Hypokalemia * Patient k+ was 3.5 this morning * IV potassium replacement was done as per protocol * We will repeat serum electrolytes tomorrow AM DVT prophylaxis with SCDs ATTESTATION BY PHYSICIAN I have seen and examined the patient. I reviewed the documentation, medical decision making, and treatment plan as noted by the resident physician above. I agree with the findings and plan of care. ROSANNA VALENZUELA MD, HARSHAVARDHA MD Apr 18, 2025 13:20
[2025-04-18] MEDS: SUCRALFATE 1 GM/10 ML PO SCH (18:05)
[2025-04-19] VITALS: BP 111/63; PULSE 71; RESP 20; TEMP 98.2
[2025-04-19 04:00] VITALS: BP 96/58; PULSE 69; RESP 20; TEMP 98.3
[2025-04-19 04:07] LABS: NUCLEATED RED BLOOD CELLS 0.0 % (0.0-0.19); PLATELET COUNT (AUTO) 414.0 K/uL (130-400); RED BLOOD CELL COUNT(AUTO) 3.91 MIL/uL (4.00-5.50); RED CELL DISTRIBUTION WIDTH 14.6 % (11.0-15.5); WHITE BLOOD COUNT (AUTO) 5.8 K/uL (4.8-10.8)
[2025-04-19 04:44] LABS: CREATININE 0.3 mg/dL (0.5-1.0); GLOMERULAR FILTR. RATE CALC 140.0 mL/min (>90); GLUCOSE,RANDOM 129.0 mg/dL (70-105); SODIUM SERUM 138.0 mmol/L (136-145); UREA NITROGEN, BLOOD 8.0 mg/dL (7-18)
[2025-04-19 08:00] VITALS: BP 92/57; PULSE 77; RESP 16; TEMP 98.1
[2025-04-19 08:05] VITALS: O2SAT 98
[2025-04-19 11:04] LABS: PHOSPHORUS 3.8 mg/dL (2.5-4.9)
[2025-04-19] MEDS ORDERED: METO5TAB2 PO (12:30)
[2025-04-19 12:35] VITALS: BP 93/57; PULSE 92; RESP 18; TEMP 98.2
--- NOTE | 2025-04-19 13:06 | DS ---
Discharge Summary Hospital Course Summary: This is a 39-year-old female with history of poorly-controlled diabetes mellitus presented to the ED with intractable nausea, vomiting, and epigastric pain for the past 12 hours. She had around 12 episodes of nonbloody, nonbilious vomiting since yesterday. Patient also says she has epigastric pain, constant in duration, not associated with diarrhea. Patient had a history of several hospital admissions for similar symptoms and in the most recent admission she underwent MRCP that revealed the common bile duct stricture and subsequently underwent ERCP with a sphincterotomy. At the same time a gastric emptying study was also performed that revealed gastroparesis but patient failed to follow up with GI later on. Patient says she does not have a PCP and currently uses [id number] insulin NovoLog 25 units in the morning and 15 units in the night. Patient reports she missed a dose of p.m. insulin due to nausea at home. On admission she had blood pressure of 160/97, heart rate of 87, respiratory rate of 17. Her whole blood glucose was 285, whole blood ketones 1.8, and high urinary ketones. Her serum bicarbonate was 23, lipase , gastric emesis positive for occult blood. Her anion gap was 11. Presentation was suggestive stable mild DKA in this poorly controlled diabetic patient, with the most recent HbA1c of 10.1. Her serum lipase levels were normal. While in the ED patient received prochlorperazine for her nausea and IV hydration with normal saline and D5 NS. She was resumed on insulin Lantus and regular sliding scale insulin. She was transferred to med surg unit for further management. Despite correction of her blood glucose, patient continued to have intractable nausea, vomiting and epigastric pain. Patient had several episodes of emesis nonbloody, nonbilious vomiting during the hospitalization. Several doses of p.r.n. ondansetron was given with no benefit. Marinol was prescribed for her nausea which provided better relief. She was continued on metoclopramide 5 mg t.i.d. and IV Protonix 40 mg b.i.d. Patient was able to tolerate full liquid diet and was advised to maintain it for at least a week until she gets a follow up with data lead. During hospitalization she also had episodes of hypokalemia which was corrected with IV potassium. Patient will be discharged home in stable condition and was advised to follow up with data lead to manage her gastroparesis. Patient will be sent home with prescription of metoclopramide 5 mg three times daily to be taken 30 minutes before meals. Patient was advised to resume taking her regular dose of insulin NovoLog 35 units in the a.m. and 25 units in the p.m. Owing to recurrent hospitalizations for similar complaints due to medication noncompliance patient was educated on its importance and regulating her blood glucose levels to avoid further complications and hospitalizations. Also patient was encouraged to obtain insurance so that she can have a regular primary care provider. Missing Persons Investigator(s): Dr. Breezy Mederos, data lead was consulted for intractable nausea, vomiti ng, epigastric abdominal pain in a patient post ERCP for suspected CBD stricture who underwent sphincterotomy on 03/27/2025 and diagnosed with gastroparesis with gastric emptying study on 03/24/2025. Apparently patient was given a pr escription for metoclopramide, however patient was lost to follow up. GI recommended no intervention at this time and was advised to follow up at [facility] in 1 week for further management. Procedure(s): None Assessment/Plan: ASSESSMENT: Poorly controlled diabetes mellitus with recurrent hospitalizations Mild DKA,resolved Medication non compliance Gastroparesis, confirmed by gastric emptying study 03/24/2024 Status post-ERCP with biliary sphincterotomy on 03/27/2025 Intractable nausea and vomiting, gastroparesis, resolved Hyperglycemia, resolved Hypokalemia, resolved Discharge Instructions: ADMISSION DATE : 04/15/2025 DISCHARGE DATE: 04/19/2025 DISPOSITION : Home CONDITION : Stable CLIP RIVETER(S) : Dr. Mederos, data lead FOLLOW UP APPOINTMENT(S) : f/u with PCP in one 2-3 days, f/u with Dr. Breezy Mederos, data lead in 1 week PROCEDURES: IMAGING (S) : report attached to summary MICROBIOLOGY : report attached to summary ACTIVITY : ad jose HOME MEDICATIONS : Continued Home Medications: Active Scripts Metoclopramide HCl (Metoclopramide HCl) 5 Mg Tablet, 1 TAB PO TID for 30 Days, #90 TAB 0 Refills Prov:RAD LAW MD 04/19/25 Reported Medications Insulin NPH Hum/Reg Insulin Hm (Novolin 70-30 Flexpen) 100 Unit/Ml (70-30) Insuln.pen, 25 UNIT SQ HS, SYRINGE 03/01/25 Insulin NPH Hum/Reg Insulin Hm (Novolin 70-30 Flexpen) 100 Unit/Ml (70-30) Insuln.pen, 35 UNIT SQ DAILY, SYRINGE 03/01/25 New Medications: Metoclopramide HCl (Metoclopramide HCl) 5 Mg Tablet 1 TAB PO TID for 30 Days, #90 TAB 0 Refills Changed Medications: Insulin NPH Hum/Reg Insulin Hm (Novolin 70-30 Flexpen) 100 Unit/Ml (70-30) Insuln.pen 35 UNIT SQ DAILY, SYRINGE (Changed from: 25 UNIT) Insulin NPH Hum/Reg Insulin Hm (Novolin 70-30 Flexpen) 100 Unit/Ml (70-30) Insuln.pen 25 UNIT SQ HS, SYRINGE (Changed from: 15 UNIT) Time spent arranging discharge: 1-30 minutes ATTESTATION BY PHYSICIAN I have seen and examined the patient. I reviewed the documentation, medical decision making, and treatment plan as noted by the resident physician above. I agree with the findings and plan of care. ROSANNA VALENZUELA MD, HARSHAVARDHA MD Apr 19, 2025 13:06
--- NOTE | 2025-04-19 14:01 | NUR ---
Nutritional f/u Note: Chart, meds, and labs Reviewed. Pt diet downgraded to full liquid diet and started on Marinol. 100% of am meal as per pt. Pt reported improved appetite and intake. Recommend: -advance diet as tolerated to 60cdd diet -RD to provide further recommendations based on clinical progress. -Monitor feeding tolerance, %, wt, and labs -If No BM >3days consider bowel stimulant. - Please notify RD if additional nutrition concerns arise. Addendum: 04/19/25 at [address] Amended: Links added.
--- NOTE | 2025-04-19 15:20 | NUR ---
DISCHARGE PATIENTS SALINE LOCK REMOVED, DRESSING APPLIED, DISCHARGE INSTRUCTIONS GIVEN, INSTRUCTED ON FOLLOW UP APPOINTMENT, AND NEW INSULIN DOSES. PRESENT, BOTH VERBALIZED UNDERSTANDING OF INSTRUCTIONS. D/C HOME VIA WHEELCHAIR TO PRIVATE VEHICLE.
== END 2025-04-19 14:00 | disposition home or self-care (01) | DRG 638 ==
LOC: EDH 04:21 → EDHIP 04:22 → OBSVTOIN 04:22 → EDHIP 09:31 → 4AH 15:19
PROVIDERS: ADMIT Internal Medicine; ATTEND Internal Medicine
DX: E11.10 Type 2 diabetes mellitus with ketoacidosis without coma (principal); E87.1 Hypo-osmolality and hyponatremia; K92.1 Melena; E86.0 Dehydration; E87.6 Hypokalemia; E11.43 Type 2 diabetes mellitus with diabetic autonomic (poly)neuropathy; K31.84 Gastroparesis; I10 Essential (primary) hypertension; K21.9 Gastro-esophageal reflux disease without esophagitis; Z79.4 Long term (current) use of insulin; Z82.49 Family history of ischemic heart disease and other diseases of the circulatory system; Z83.3 Family history of diabetes mellitus; Z91.148 Patient's other noncompliance with medication regimen for other reason
CPT/HCPCS: 36415; 80048; 80053; 81001; 82010; 82271; 82948; 83690; 84100; 84132; 84484; 85025; 85027; 96374; 96375; 99285; G0378; J0780; J1815; J2270; J2405; J2470; J2765; J3480; J7030; Q0167

== ENCOUNTER 2025-05-15 17:19 | Inpatient (IN) | payer SELFPAY ==
[~2025-05-15] VITALS: Ht 165.1 cm; Wt 59.0 kg
[~2025-05-15 17:19] MED LIST changes: +METO5TAB2 PO
--- NOTE | 2025-05-15 17:33 | ERN ---
ED Note History of Present Illness Stated Complaint: NAUSEA/ VOMITING Chief Complaint: Nausea,Vomiting,Diarrhea Time Seen by MD: 17:20 Time Seen by Midlevel: 17:20 Dictation: The patient is a 39-year-old female with a history of diabetes, gastroparesis, cholecystectomy, tubal ligation who presents to the emergency department with complaints of epigastric abdominal pain associated with nausea nonbloody vomiting onset this morning. Patient denies any diarrhea or constipation, denies any fevers, denies any urinary discomfort. Allergies: Coded Allergies: No Known Drug Allergies (Unverified Allergy, Unknown, 10/02/15) Home Meds Active Scripts Metoclopramide HCl (Metoclopramide HCl) 5 Mg Tablet, 1 TAB PO TID for 30 Days, #90 TAB 0 Refills Prov:RAD LAW MD 04/19/25 Reported Medications Insulin NPH Hum/Reg Insulin Hm (Novolin 70-30 Flexpen) 100 Unit/Ml (70-30) Insuln.pen, 25 UNIT SQ HS, SYRINGE 03/01/25 Insulin NPH Hum/Reg Insulin Hm (Novolin 70-30 Flexpen) 100 Unit/Ml (70-30) Insuln.pen, 35 UNIT SQ DAILY, SYRINGE 03/01/25 Past Medical History Past Medical History: Diabetes-Type II, Other Additional Past Medical Hx: GASTROPARESIS Surgical History: Cholecystectomy, Surgical History Other: TUBAL LIGATION 2020 Family History: Negative Social History: Lives with family, Other History: Not Applicable RN Note Reviewed/Agreed w/PFSH: Yes Review of System Dictation Constitutional: Negative for fever,chills, and weight loss Eyes: Negative for injury, pain,redness, and discharge ENT: Negative for injury,pain or swelling Cardiovascular: Negative for chest pain, palpitations, and edema Respiratory: Negative for shortness of breath, cough, and wheezing, Abdomen/GI: Negative for diarrhea, and constipation positive for abdominal pain, nausea, vomiting Back: Negative for injury and pain : Negative for injury, bleeding and discharge MS/Extremity: Negative for injury and deformity Skin: Negative for rash, and discoloration Neuro: Negative for headache, weakness, numbness, tingling, and seizure Psych: Negative for suicide ideation, homicidal ideation, and hallucinations Initial Vital Sign VS Vital Signs Date Time Temp Pulse Resp B/P (MAP) Pulse Ox O2 Delivery O2 Flow Rate FiO2 11/12/25 17:20 98.2 83 16 151/96 100 Room Air 0 05/15/25 19:17 21 Physical Exam Dictation Vital Signs reviewed General Appearance: Alert, oriented x 3, no acute distress, well developed, nourished. Head and Face: non-traumatic. Eyes: PERRL, pink conjunctivas, eyelid no trauma, anterior chamber with arcus senilis. Ears: Pinnas intact and no signs of trauma or erythema ear canals clear and no discharge TM no erythema Nose: No discharge, no bleeding. Oropharynx: Mouth normal, tongue pink. pharynx clear,no erythema, tonsils no exudates, no abscesses noted, mucous membrane moist Neck: Supple, non-tender, no thyromegaly, no masses, no JVD, no bruits Breast:Deferred Chest:No tenderness, no crepitus, no paradoxical movement, no retractions Lungs:Clear, well-ventilated, symmetric, no rales, no wheezing, no rhonchi, no stridor, good breath sounds bilaterally Heart: Regular rate, regular rhythm, no murmur, no gallops Vascular: no peripheral edema, Abdomen: Soft, positive bowel sounds, nondistended, no guarding, nontender, no rebound, no masses no hepatomegaly, no splenomegaly, no Wright's sign, no hernias. Rectal: Deferred Genital: Deferred Neurological: Normal speech, motor function intact, sensory function intact Musculoskeletal: Neck nontender, full range of motion, back nontender, full range of motion, Extremities: nontender, full range of motion Skin: Color pink, dry, no turgor, no rash, no lacerations, no abrasions, no contusions. Lymphatic: Deferred Results (Laboratory/Radiology) Laboratory/Radiology Laboratory Tests Test 05/15/25 17:41 05/15/25 18:43 White Blood Count 8.8 K/uL (4.8-10.8) Red Blood Count 3.92 MIL/uL (4.00-5.50) L Hemoglobin 11.0 g/dL (12.0-16.0) L Hematocrit 33.7 % (36-48) L Mean Corpuscular Volume 86.0 fL (79-99) Mean Corpuscular Hemoglobin 28.1 pg (27.0-33.0) Mean Corpuscular Hemoglobin Concent 32.6 g/dL (32.0-36.0) Red Cell Distribution Width 13.8 % (11.0-15.5) Platelet Count 385 K/uL (130-400) Mean Platelet Volume 11.0 fL (7.5-10.5) H Immature Granulocyte % (Auto) 0.3 % (0-1) Neutrophils (%) (Auto) 86.9 % (40.0-77.0) H Lymphocytes (%) (Auto) 10.4 % (21.0-51.0) L Monocytes (%) (Auto) 2.2 % (3.0-13.0) L Eosinophils (%) (Auto) 0.0 % (0.0-8.0) Basophils (%) (Auto) 0.2 % (0.0-5.0) Neutrophils # (Auto) 7.6 K/uL (1.8-7.7) Lymphocytes # (Auto) 0.9 K/uL (1.0-4.8) L Monocytes # (Auto) 0.2 K/uL (0.1-1.0) Eosinophils # (Auto) 0.00 K/uL (0.00-0.70) Basophils # (Auto) 0.02 K/uL (0.00-0.20) Absolute Immature Granulocyte (auto 0.03 K/uL (0-1) Nucleated Red Blood Cells 0.0 % (0.0-0.19) Sodium Level 140 mmol/L (136-145) Potassium Level 3.8 mmol/L (3.5-5.1) Chloride Level 103 mmol/L (101-111) Carbon Dioxide Level 25 mmol/L (21-32) Blood Urea Nitrogen 11 mg/dL (7-18) Creatinine 0.4 mg/dL (0.5-1.0) L Glomerular Filtration Rate Calc 131 mL/min (>90) Random Glucose 254 mg/dL (70-105) H Total Calcium 8.6 mg/dL (8.5-10.1) Magnesium Level 1.50 mg/dL (1.80-2.40) L Total Bilirubin 0.4 mg/dL (0.2-1.0) Direct Bilirubin 0.1 mg/dL (0.0-0.3) Aspartate Amino Transf (AST/SGOT) 13 U/L (10-37) Alanine Aminotransferase (ALT/SGPT) 25 U/L (12-78) Alkaline Phosphatase 81 U/L (50-136) Total Creatine Kinase 42 U/L (21-232) # Troponin I High Sensitivity < 4 ng/L (4-50) L Total Protein 7.9 g/dL (6.0-8.3) Albumin 3.8 g/dL (3.5-5.0) Lipase 14 U/L (16-77) L Serum Test, Qualitative NEGATIVE (NEGATIVE) Urine Color LIGHT-YELLOW (YELLOW) Urine Appearance CLEAR (CLEAR) Urine pH 7.0 (5.0-8.0) Urine Specific [place] 1.032 (1.001-1.031) Urine Protein NEGATIVE mg/dL (NEGATIVE) Urine Glucose (UA) >=1000 mg/dL (NEGATIVE) H Urine Ketones 150 mg/dL (NEGATIVE) H Urine Occult Blood NEGATIVE (NEGATIVE) Urine Nitrate NEGATIVE (NEGATIVE) Urine Bilirubin NEGATIVE mg/dL (NEGATIVE) Urine Urobilinogen 0.2 mg/dL (0.2-1.0) Urine Leukocyte Esterase NEGATIVE Claudette/uL Urine RBC 0-1 /HPF (0-1) Urine WBC 0-1 /HPF (0-1) Urine Squamous Epithelial Cells RARE /HPF (0-2) Urine Bacteria None /HPF (None Seen) Labs Reviewed?: Yes EKG: (+) rhythm (Sinus rhythm) EKG Comment: Date:05/15/2025 Time:1805 Ventricular rate:95 PA interval:120 QRS duration:88 QT/QTc:397/499 EKG interpretation: Sinus rhythm Reviewed by ED Attending no STEMI ED Course ED Course Orders Procedure Category Date Status Time Cbc With Differential LAB 05/15/25 Complete 17:29 Troponin I High LAB 05/15/25 Complete Sensitivity 17:29 Urinalysis Profile LAB 05/15/25 Complete 17:29 12 Lead Ekg Tracing- EKG 05/15/25 Complete Technical 17:29 0.9%Nacl 1000ml (Ns PHA 05/15/25 Complete 1000ml) 17:30 Ondansetron 4mg Inj PHA 05/15/25 Complete (Zofran 4mg Inj) 17:30 Creatine Kinase, Total LAB 05/15/25 Complete 17:29 Lipase LAB 05/15/25 Complete 17:29 Basic Metabolic Panel LAB 05/15/25 Complete 17:29 Hepatic Function Panel LAB 05/15/25 Complete 17:29 Magnesium LAB 05/15/25 Complete 17:29 Testing, LAB 05/15/25 Complete Serum Hcg 17:29 Pantoprazole 40mg Inj PHA 05/15/25 Complete (Protonix 40mg Inj 17:30 Magnesium Oxide PHA 05/15/25 Complete (Mag-Ox) 19:00 Metoclopramide 10 PHA 05/15/25 Complete Mg/2 Ml Vial (Reglan 1 19:30 Magnesium 2gm Premix PHA 05/15/25 In Process 50ml (Magnesium 2gm 19:30 Current Medications Medications (Trade) Dose Ordered Sig/Neva Route PRN Reason Start Time Stop Time Status Last Admin Dose Admin Magnesium Oxide (Mag-Ox) 400 mg ONCE ONCE PO 05/15/25 19:00 05/15/25 19:01 DC Magnesium Sulfate 50 ml @ 0 mls/hr PROTOCOL IV 05/15/25 19:30 06/14/25 19:29 05/15/25 19:56 Metoclopramide HCl (regLAN 10MG IV) 10 mg ONCE ONCE IVP 05/15/25 19:30 05/15/25 19:31 DC 05/15/25 19:55 Ondansetron HCl (zoFRAN 4MG INJ) 4 mg ONCE ONCE IVP 05/15/25 17:30 05/15/25 17:32 DC 05/15/25 18:49 Pantoprazole Sodium (PROTonix 40MG INJ) 40 mg ONCE ONCE IVP 05/15/25 17:30 05/15/25 17:32 DC 05/15/25 18:49 Sodium Chloride 1,000 ml @ 0 mls/hr ONCE ONCE IV 05/15/25 17:30 05/15/25 17:32 DC 05/15/25 18:49 Vital Signs Date Time Temp Pulse Resp B/P (MAP) Pulse Ox O2 Delivery O2 Flow Rate FiO2 05/15/25 19:17 98.2 82 18 159/96 97 Room Air* 0 21 05/15/25 17:20 98.2 83 16 151/96 100 Room Air 0 Medical Decision Making MDM MDM: The patient is a 39-year-old female with a history of diabetes, gastroparesis, cholecystectomy, tubal ligation who presents to the emergency department with complaints of epigastric abdominal pain associated with nausea nonbloody vomiting onset this morning. Patient denies any diarrhea or constipation, denies any fevers, denies any urinary discomfort. CBC showed no leukocytosis, mild normocytic anemia, chemistry showed mild hypomagnesemia, elevated blood glucose, negative lipase, negative liver enzymes, urinalysis negative leukocyte esterase and nitrites. Patient received multiple antiemetics she received 4 mg of Zofran by EMS and 4 mg of Zofran in the ER. Patient also received 10 mg of Reglan. Despite antiemetic medication patient continues with nonbloody vomiting. We will admit patient for further evaluation and treatment. Differential diagnosis: Gastroenteritis, gastritis, dehydration, electrolyte imbalance, ACS Comorbidities: Gastroparesis, diabetes, cholecystectomy Tests considered and not ordered secondary to shared decision making include: none Previous outside records reviewed: none Risk of complication and/or morbidity or mortality of patient management: The patient meets criteria for admission. Need for emergency major/minor surgery: No There are no social concerns with this patient. I independently interpreted the tests I ordered (labs, urinalysis, etc.). I discussed the case with the hospitalist for admission. [facility] who accepts admission I discussed the case with the following specialists: none. Historian: [email or web address]. I independently interpreted imaging studies and EKGs that I ordered (US, CT, XR, EKG, etc.). External chart review: none. Medical management and examination interpretation discussions were had by me with other qualified healthcare professionals as indicated for the patient's care. DX & DISP Disposition: Inpatient Decision to Admit Date: May 15, 2025 Decision to Admit Time: 21:02 Departure Impression: Primary Impression: Gastroparesis diabeticorum Additional Impressions: Nausea and vomiting, Hypomagnesemia, Uncontrolled diabetes mellitus with hyperglycemia Condition: Stable Referrals: NONE (PCP) I have reviewed the case, and I agree with, Diagnosis and Plan LIBRA GRACIA May 15, 2025 17:33
[2025-05-15 17:48] LABS: IMMATURE GRANULOCYTE ABSOLUTE 0.03 K/uL (0-1); NUCLEATED RED BLOOD CELLS 0.0 % (0.0-0.19); PLATELET COUNT (AUTO) 385 K/uL (130-400); RED BLOOD CELL COUNT(AUTO) 3.92 MIL/uL (4.00-5.50); RED CELL DISTRIBUTION WIDTH 13.8 % (11.0-15.5); WHITE BLOOD COUNT (AUTO) 8.8 K/uL (4.8-10.8)
[2025-05-15 17:59] LABS: CREATININE 0.4 mg/dL (0.5-1.0); GLOMERULAR FILTR. RATE CALC 131.0 mL/min (>90); GLUCOSE,RANDOM 254.0 mg/dL (70-105); SODIUM SERUM 140.0 mmol/L (136-145); UREA NITROGEN, BLOOD 11.0 mg/dL (7-18)
[2025-05-15 18:05] LABS: ASPARTATE AMINOTRANSFERASE 13.0 U/L (10-37); CREATINE KINASE, TOTAL 42.0 U/L (21-232); TOTAL PROTEIN, SERUM 7.9 g/dL (6.0-8.3)
--- NOTE | 2025-05-15 18:11 | EKG ---
[facility] Test Date: 2025-05-15 Test Time: 18:05:11 Pat Name: RAEANN PITT Department: ED Room: 119 Gender: F Spray Mixer: [id number] : 1985 Requested By: LIBRA GRACIA Order Number: [id number] Reading MD: John Thorpe Measurements Intervals [place] Rate: 95 P: 41 MD: 120 QRS: 49 QRSD: 88 T: 27 QT: 397 QTc: 499 Interpretive Statements Sinus rhythm Compared to ECG 03/24/2025 05:52:02 No significant changes Electronically Signed On 05-16-2025 19:04:37 CHERRY SORTER by John Thorpe Please click the below link to view image of tracing.
[2025-05-15] MEDS: MAGNESIUM OXIDE 400 MG TABLET PO ONE (18:47)
[2025-05-15] MEDS: 0.9%NACL 1000ML 1,000 ML IV ONE (18:49)
[2025-05-15 19:12] LABS: APPEARANCE,URINE CLEAR (CLEAR); GLUCOSE, URINE (UA) >=1000 mg/dL (NEGATIVE); LEUKOCYTE ESTERASE ,URINE NEGATIVE Leu/uL (NEGATIVE); NITRATE,URINE NEGATIVE (NEGATIVE); OCCULT BLOOD,URINE NEGATIVE (NEGATIVE)
--- NOTE | 2025-05-15 19:13 | NUR ---
PT CARE ASSUMED AT THIS TIME
[2025-05-15 19:16] LABS: ADD UA MICROSCOPIC YES
[2025-05-15 19:17] LABS: SQUAMOUS EPITHELIAL CELL,UR RARE /HPF (0-2)
[2025-05-15] MEDS: MAGNESIUM 2GM PREMIX 50ML 50 ML IV SCH (19:56)
--- NOTE | 2025-05-15 21:18 | NUR ---
RECRUITMENT COORDINATOR DON DON AT BEDSIDE AT THIS TIME
[2025-05-15 21:42] LABS: AMPHET/METH SCREEN,URINE NEGATIVE (NEGATIVE); BARBITURATE SCREEN, URINE NEGATIVE (NEGATIVE); CANNABINOID SCREEN,URINE NEGATIVE (NEGATIVE); COCAINE SCREEN,URINE NEGATIVE (NEGATIVE)
--- NOTE | 2025-05-15 21:46 | HP ---
[facility] HISTORY [facility] PHYSICAL Date of Service: May 15, 2025 Time of Service: 21:46 PCP: Self-referral HISTORY OF PRESENT ILLNESS: This is a 39-year-old female past medical history of diabetes and gastroparesis who was brought by EMS to the ED for complaints of persistent epigastric pain associated with nausea and vomiting started today. As per patient has been having problem before has been admitted in the hospital every month for similar complaints.Patient reports she is taking her insulin Novolog insulin 30 units in the morning and 35 units in the evening.Patient reports ,she did not eat anything today and she suddenly experienced epigastric pain,nausea and vomiting.Patient does not have a PCP . Patient underwent an ERCP with sphincterotomy and papillotomy on 03/27/2025. Patient also underwent a gastric emptying study on 03/24/2025 result suggests gastroparesis. Seen and examined patient in the ER awake,alert and coherent,appears uncomfortable.Patient denies fever,chills,chest pain,palpitation,shortness of b reath and diarrhea. Latest vital signs temperature 98.2, heart rate 82, blood pressure 159/96 saturation 97% on room air. Labs: Hemoglobin 11, hematocrit 33, platelet count 385. Glucose 254, magnesium 1.5 troponin less than four lipase 14 serum negative. Urine toxicology negative urinalysis significant for urine glucose above 1000 and urine ketones 150 otherwise unr emarkable. While in the ER patient received 1 L NS bolus, Zofran 4 mg IV, Protonix 40 mg IV, magnesium replacement and Reglan 10 mg IV. ER Called and recommended to admit the patient. REVIEW OF SYSTEMS CONSTITUTIONAL: Denies fevers, chills, or night sweats. No unintentional weight loss reported. NEUROLOGICAL: Denies headache, amaurosis fugax, motor weakness, sensory deficit, vertigo/spinning sensation, gait abnormalities, or tremors. ENT: No hearing loss, otalgia, otorrhea, rhinitis, rhinorrhea, hoarseness, or sore throat. CARDIOVASCULAR: Denies any exertional angina, dyspnea on exertion, orthopnea, paroxysmal nocturnal dyspnea, palpitations, life-threatening arrhythmias, claudication. PULMONARY: Denies any shortness of breath, cough, phlegm/sputum, hemoptysis, pleuritic chest pain. SLEEP: Denies morning headaches, daytime somnolence or napping. Denies difficulty falling asleep, staying asleep, waking from sleep. Denies knowledge of snoring. GASTROINTESTINAL: Complain of epigastric pain nausea and vomiting Denies any type of dysphagia to either liquids or solids. Denies pyrosis, early satiety, diarrhea, constipation, or changes in stool consistency or caliber. Denies coffee-ground emesis, hematemesis, hematochezia, or melanotic stools. GENITOURINARY: Denies frequency, urgency, nocturia, hematuria or incontinence (Storage/Irritative symptoms.) Low urinary stream, straining to void, urinary intermittency or hesitancy, splitting of the voiding stream, terminal dribbling. ENDOCRINOLOGIC: Denies polyuria, polydipsia, polyphagia or heat/cold intolerances. HEMATOLOGIC: Denies thrombophilia/previous clots, or coagulopathy/bleeding disorders. ONCOLOGIC: Denies personal history of malignancy. DERMATOLOGIC: Denies rashes or pruritus. PSYCHIATRIC: Denies any suicidal or homicidal ideation. Denies hallucinations. PAST MEDICAL HISTORY: [ Diabetes and gastroparesis ] PAST SURGICAL HISTORY: [ Cholecystectomy x6 ] PAST SOCIAL HISTORY: [ Patient lives with . Patient denies alcohol tobacco and recreational drug use] FAMILY HISTORY: [ Hypertension and diabetes] Coded Allergies: No Known Drug Allergies (Unverified Allergy, Unknown, 10/02/15) PHYSICAL EXAM GENERAL APPEARANCE: The patient is awake, alert, and oriented, in no acute cardiopulmonary distress. NEUROLOGICAL: Cranial nerves II-XII grossly intact. Motor is 5/5 in bilateral upper and lower extremities proximal to distal. No sensory deficits. HEENT: Face is symmetric. Pupils are equal and reactive. Extraocular movements are intact. NECK: Supple. No JVD. No thyromegaly. No submental, submandibular, pre- /postauricular, occipital or supraclavicular lymphadenopathy. CHEST: Normal chest expansion. No Telemetry. LUNGS: Absence of any rales, rhonchi or any wheezing. CARDIOVASCULAR: Regular. S1 and S2 normal. No appreciable rubs, murmurs or gallops. ABDOMEN: Abdominal tenderness around epigastric area on palpation Softand nondistended. There is no rebound, voluntary guarding, or rigidity. : Deferred. No Nuñez. EXTREMITIES: Non-edematous and not cyanotic. No clubbing. Good capillary refill. SKIN: No skin breakdown. Vital Sign (Last 24 Hours) 05/15/25 19:17 Temp 98.2 Pulse 82 Resp 18 B/P (MAP) 159/96 Pulse Ox 97 O2 Delivery Room Air* O2 Flow Rate 0 FiO2 21 LABS: Laboratory: Test 05/15/25 18:43 05/15/25 17:41 Range/Units Urine Color LIGHT-YELLOW YELLOW Urine Appearance CLEAR CLEAR Urine pH 7.0 5.0-8.0 Urine Specific [place] 1.032 H 1.001-1.031 Urine Protein NEGATIVE NEGATIVE mg/dL Urine Glucose (UA) >=1000 H NEGATIVE mg/dL Urine Ketones 150 H NEGATIVE mg/dL Urine Occult Blood NEGATIVE NEGATIVE Urine Nitrate NEGATIVE NEGATIVE Urine Bilirubin NEGATIVE NEGATIVE mg/dL Urine Urobilinogen 0.2 0.2-1.0 mg/dL Urine Leukocyte Esterase NEGATIVE NEGATIVE Claudette/uL Urine RBC 0-1 0-1 /HPF Urine WBC 0-1 0-1 /HPF Urine Squamous Epithelial Cells RARE 0-2 /HPF Urine Bacteria None None Seen /HPF Urine Opiates Screen NEGATIVE NEGATIVE Urine Barbiturates Screen NEGATIVE NEGATIVE Urine Phencyclidine Screen NEGATIVE NEGATIVE Urine Amphetamines Screen NEGATIVE NEGATIVE Urine Benzodiazepines Screen NEGATIVE NEGATIVE Urine Cocaine Screen NEGATIVE NEGATIVE Urine Marijuana (THC) Screen NEGATIVE NEGATIVE White Blood Count 8.8 4.8-10.8 K/uL Red Blood Count 3.92 L 4.00-5.50 MIL/uL Hemoglobin 11.0 L 12.0-16.0 g/dL Hematocrit 33.7 L 36-48 % Mean Corpuscular Volume 86.0 79-99 fL Mean Corpuscular Hemoglobin 28.1 27.0-33.0 pg Mean Corpuscular Hemoglobin Concent 32.6 32.0-36.0 g/dL Red Cell Distribution Width 13.8 11.0-15.5 % Platelet Count 385 130-400 K/uL Mean Platelet Volume 11.0 H 7.5-10.5 fL Immature Granulocyte % (Auto) 0.3 0-1 % Neutrophils (%) (Auto) 86.9 H 40.0-77.0 % Lymphocytes (%) (Auto) 10.4 L 21.0-51.0 % Monocytes (%) (Auto) 2.2 L 3.0-13.0 % Eosinophils (%) (Auto) 0.0 0.0-8.0 % Basophils (%) (Auto) 0.2 0.0-5.0 % Neutrophils # (Auto) 7.6 1.8-7.7 K/uL Lymphocytes # (Auto) 0.9 L 1.0-4.8 K/uL Monocytes # (Auto) 0.2 0.1-1.0 K/uL Eosinophils # (Auto) 0.00 0.00-0.70 K/uL Basophils # (Auto) 0.02 0.00-0.20 K/uL Absolute Immature Granulocyte (auto 0.03 0-1 K/uL Nucleated Red Blood Cells 0.0 0.0-0.19 % Sodium Level 140 136-145 mmol/L Potassium Level 3.8 3.5-5.1 mmol/L Chloride Level 103 101-111 mmol/L Carbon Dioxide Level 25 21-32 mmol/L Blood Urea Nitrogen 11 7-18 mg/dL Creatinine 0.4 L 0.5-1.0 mg/dL Glomerular Filtration Rate Calc 131 >90 mL/min Random Glucose 254 H 70-105 mg/dL Total Calcium 8.6 8.5-10.1 mg/dL Magnesium Level 1.50 L 1.80-2.40 mg/dL Total Bilirubin 0.4 0.2-1.0 mg/dL Direct Bilirubin 0.1 0.0-0.3 mg/dL Aspartate Amino Transf (AST/SGOT) 13 10-37 U/L Alanine Aminotransferase (ALT/SGPT) 25 12-78 U/L Alkaline Phosphatase 81 50-136 U/L Total Creatine Kinase 42 # 21-232 U/L Troponin I High Sensitivity < 4 L 4-50 ng/L Total Protein 7.9 6.0-8.3 g/dL Albumin 3.8 3.5-5.0 g/dL Lipase 14 L 16-77 U/L Serum Test, Qualitative NEGATIVE NEGATIVE Current Medications Medications (Trade) Dose Ordered Sig/Neva Route PRN Reason Start Time Stop Time Status Last Admin Dose Admin Magnesium Sulfate 50 ml @ 0 mls/hr PROTOCOL IV 05/15/25 19:30 06/14/25 19:29 05/15/25 19:56 25 MLS/HR DIAGNOSTICS / RADIOLOGY: [ ] ASSESSMENT: Intractable abdominal pain POA Intractable nausea and vomiting POA Poorly controlled gastroparesis POA Normocytic normochromic anemia POA Uncontrolled diabetes POA Hypomagnesemia POA PLAN: We will admit patient in medical surgical We will keep nothing by mouth We will start NS @ 100 ml / hr x2 bags and re evaluate We will start on Protonix 40 mg IV daily for GI prophylaxis We will replace electrolytes as needed per protocol We will start on insulin sliding scale AC & HS with hypoglycemia protocol We will add prn medication for fever,pain,cough , nausea and vomiting We will reconcile home meds once medlist available We will seek gastroenterology consultation We will request labs in am Further orders to follow depending on above results Case discussed with attending physician and came up with above treatment and an n of care. ADVANCED CARE PLANNING 1. Which of the following were discussed? Hospice Care - No Therapeutic options - Yes Advance Directives - No Other discussions - 2. Discussed with who? Patient 3. Voluntary nature of this service was explained to the patient? Yes 4. Amount of time spent - __22 min 5. Reviewed by Physician? (if this service was performed by NPP) Yes Patient seen and examined by me. Agree with note by VIDEO PRESENTATION OPERATOR SEE ADDITIONAL ORDERS PER CHART DISCUSSED WITH NURSING STAFF EL MCKEON MANAGER SERVICE DESK May 15, 2025 21:46
[2025-05-15] MEDS ORDERED: GLUCAGON 1MG KIT 1 MG ML IM PRN (22:00)
[2025-05-15] MEDS ORDERED: MAGNESIUM 2GM PREMIX 50ML 50 ML IV PRN (22:00)
[2025-05-15] MEDS ORDERED: DEXTROSE 50%-WATER 50 ML DISP.SYRIN IV PRN (22:00)
--- NOTE | 2025-05-15 23:16 | NUR ---
CORRESPONDENCE SCHOOL INSTRUCTOR MICHAEL RODRIGUEZ PAGED FOR PAIN MEDICATION AT THIS TIME. PENDING CALL BACK.
--- NOTE | 2025-05-15 23:28 | NUR ---
OBTAINED PAIN MEDICATION FROM ZAIN RODRIGUEZ
[2025-05-15] MEDS: 0.9%NACL 1000ML 1,000 ML IV SCH (23:41)
--- NOTE | 2025-05-16 07:12 | NUR ---
REPORT GIVEN TO ZECHARIAH MILLER AT THIS TIME
[2025-05-16 07:23] LABS: IMMATURE GRANULOCYTE ABSOLUTE 0.03 K/uL (0-1); NUCLEATED RED BLOOD CELLS 0.0 % (0.0-0.19); PLATELET COUNT (AUTO) 351 K/uL (130-400); RED BLOOD CELL COUNT(AUTO) 3.33 MIL/uL (4.00-5.50); RED CELL DISTRIBUTION WIDTH 13.9 % (11.0-15.5); WHITE BLOOD COUNT (AUTO) 8.5 K/uL (4.8-10.8)
[2025-05-16 08:24] LABS: ASPARTATE AMINOTRANSFERASE 11.0 U/L (10-37); CREATININE 0.5 mg/dL (0.5-1.0); GLOMERULAR FILTR. RATE CALC 124.0 mL/min (>90); GLUCOSE,RANDOM 251.0 mg/dL (70-105); SODIUM SERUM 134.0 mmol/L (136-145); TOTAL PROTEIN, SERUM 6.7 g/dL (6.0-8.3); UREA NITROGEN, BLOOD 12.0 mg/dL (7-18)
--- NOTE | 2025-05-16 09:23 | NUR ---
Leana mclean in ED - 05/16/25 at 0924 by TRAN ATTEMPTED TO CALL REPORT SEVERAL TIMES TO THE NURSE FOR ROOM 119.
--- NOTE | 2025-05-16 09:25 | NUR ---
ATTEMPTED TO CALL FIRST FLOOR NURSE SANDRA, THREE CALLS WERE MADE UNABLE TO HAND OFF REPORT. SPOKE TO A NUSE WAS TOLD THAT SANDRA WAS WITH A PATIENT. CHARGE NURSE MADE AWARE. CHARGE NURSE CALLED THE FLOOR AND WAS TOLD THAT SNADRA WAS BUSY.
--- NOTE | 2025-05-16 09:36 | NUR ---
REPORT GIVEN TO SANDRA AT THIS TIME.
[2025-05-16 09:45] VITALS: BP 98/55; PULSE 98; RESP 20; O2SAT 98
--- NOTE | 2025-05-16 09:45 | PN ---
[facility] PROGRESS NOTE Date of Service: May 16, 2025 Time of Service: 09:42 SUBJECTIVE: 05/16 power chart reviewed, vital signs, laboratory tests, imaging tests and medications reviewed, BP 120/64, heart rate of 104, afebrile, saturating normal on room air, hemoglobin 9.2, hematocrit 39.2, WBC 8.5, platelet count of 351, blood glucose level 0231, hemoglobin A1c 7.5, troponin less than four, albumin 3.2, serum test negative, urine drug screen negative. Patient with a history of diabetes gastroparesis, continue Reglan IV, continue Protonix 40 mg IV b.i.d.. Repeat CBC today, transfuse 1 unit of PRBC if hemoglobin less than seven. Patient underwent an ERCP with sphincterotomy and papillotomy on 03/27/2025. Patient also underwent a gastric emptying study on 03/24/2025 result suggests gastroparesis.GI consultation requested, follow input and recommendation. During my visit the patient comfortably in bed, alert oriented x3, hemodynamically stable, denies chest pain, shortness shortness for breath, no nausea, no vomiting, no abdominal discomfort. We will started LR at 75 mL/hr, clear liquid diet. REVIEW OF SYSTEMS CONSTITUTIONAL: Denies fevers, chills, or night sweats. No unintentional weight loss reported. NEUROLOGICAL: Denies headache, amaurosis fugax, motor weakness, sensory deficit, vertigo/spinning sensation, gait abnormalities, or tremors. ENT: No hearing loss, otalgia, otorrhea, rhinitis, rhinorrhea, hoarseness, or sore throat. CARDIOVASCULAR: Denies any exertional angina, dyspnea on exertion, orthopnea, paroxysmal nocturnal dyspnea, palpitations, life-threatening arrhythmias, claudication. PULMONARY: Denies any shortness of breath, cough, phlegm/sputum, hemoptysis, pleuritic chest pain. SLEEP: Denies morning headaches, daytime somnolence or napping. Denies difficulty falling asleep, staying asleep, waking from sleep. Denies knowledge of snoring. GASTROINTESTINAL: Complain of epigastric pain nausea and vomiting Denies any type of dysphagia to either liquids or solids. Denies pyrosis, early satiety, diarrhea, constipation, or changes in stool consistency or caliber. Denies coffee-ground emesis, hematemesis, hematochezia, or melanotic stools. GENITOURINARY: Denies frequency, urgency, nocturia, hematuria or incontinence (Storage/Irritative symptoms.) Low urinary stream, straining to void, urinary intermittency or hesitancy, splitting of the voiding stream, terminal dribbling. ENDOCRINOLOGIC: Denies polyuria, polydipsia, polyphagia or heat/cold intolerances. HEMATOLOGIC: Denies thrombophilia/previous clots, or coagulopathy/bleeding disorders. ONCOLOGIC: Denies personal history of malignancy. DERMATOLOGIC: Denies rashes or pruritus. PSYCHIATRIC: Denies any suicidal or homicidal ideation. Denies hallucinations. PHYSICAL EXAM GENERAL APPEARANCE: The patient is awake, alert, and oriented, in no acute cardiopulmonary distress. NEUROLOGICAL: Cranial nerves II-XII grossly intact. Motor is 5/5 in bilateral upper and lower extremities proximal to distal. No sensory deficits. HEENT: Face is symmetric. Pupils are equal and reactive. Extraocular movements are intact. NECK: Supple. No JVD. No thyromegaly. No submental, submandibular, pre- /postauricular, occipital or supraclavicular lymphadenopathy. CHEST: Normal chest expansion. No Telemetry. LUNGS: Absence of any rales, rhonchi or any wheezing. CARDIOVASCULAR: Regular. S1 and S2 normal. No appreciable rubs, murmurs or gallops. ABDOMEN: Abdominal tenderness around epigastric area on palpation Softand nondistended. There is no rebound, voluntary guarding, or rigidity. : Deferred. No Nuñez. EXTREMITIES: Non-edematous and not cyanotic. No clubbing. Good capillary refill. SKIN: No skin breakdown. Vital Signs (last 8hr) Date Time Temp Pulse Resp B/P (MAP) Pulse Ox O2 Delivery O2 Flow Rate FiO2 05/16/25 07:23 98.6 104 13 120/64 Room Air* 0 21 05/16/25 07:11 76 16 120/69 98 Room Air* 0 21 05/16/25 06:00 70 15 97/51 98 Room Air* 0 21 05/16/25 02:49 74 16 132/92 97 Room Air* 0 21 LABS: Laboratory: Test 05/16/25 08:08 05/16/25 06:40 05/15/25 22:25 05/15/25 18:43 Range/Units Whole Blood Glucose 231 H 70-110 MG/DL White Blood Count 8.5 4.8-10.8 K/uL Red Blood Count 3.33 L 4.00-5.50 MIL/uL Hemoglobin 9.2 L 12.0-16.0 g/dL Hematocrit 29.2 L 36-48 % Mean Corpuscular Volume 87.7 79-99 fL Mean Corpuscular Hemoglobin 27.6 27.0-33.0 pg Mean Corpuscular Hemoglobin Concent 31.5 L 32.0-36.0 g/dL Red Cell Distribution Width 13.9 11.0-15.5 % Platelet Count 351 130-400 K/uL Mean Platelet Volume 11.1 H 7.5-10.5 fL Immature Granulocyte % (Auto) 0.4 0-1 % Neutrophils (%) (Auto) 71.6 40.0-77.0 % Lymphocytes (%) (Auto) 20.5 L 21.0-51.0 % Monocytes (%) (Auto) 7.3 3.0-13.0 % Eosinophils (%) (Auto) 0.0 0.0-8.0 % Basophils (%) (Auto) 0.2 0.0-5.0 % Neutrophils # (Auto) 6.1 1.8-7.7 K/uL Lymphocytes # (Auto) 1.7 1.0-4.8 K/uL Monocytes # (Auto) 0.6 0.1-1.0 K/uL Eosinophils # (Auto) 0.00 0.00-0.70 K/uL Basophils # (Auto) 0.02 0.00-0.20 K/uL Absolute Immature Granulocyte (auto 0.03 0-1 K/uL Nucleated Red Blood Cells 0.0 0.0-0.19 % Sodium Level 134 L 136-145 mmol/L Potassium Level 3.7 3.5-5.1 mmol/L Chloride Level 101 101-111 mmol/L Carbon Dioxide Level 23 21-32 mmol/L Blood Urea Nitrogen 12 7-18 mg/dL Creatinine 0.5 0.5-1.0 mg/dL Glomerular Filtration Rate Calc 124 >90 mL/min Random Glucose 251 H 70-105 mg/dL Total Calcium 8.0 L 8.5-10.1 mg/dL Magnesium Level 2.10 1.80-2.40 mg/dL Total Bilirubin 0.4 0.2-1.0 mg/dL Aspartate Amino Transf (AST/SGOT) 11 10-37 U/L Alanine Aminotransferase (ALT/SGPT) 20 12-78 U/L Alkaline Phosphatase 69 50-136 U/L Total Protein 6.7 6.0-8.3 g/dL Albumin 3.2 L 3.5-5.0 g/dL Thyroid Stimulating Hormone (TSH) 1.13 0.36-3.74 uIU/mL Hemoglobin A1c 7.5 H 4.0-6.0 % Estimated Average Glucose (eAG) 169 H 70-126 mg/dL Urine Color LIGHT-YELLOW YELLOW Urine Appearance CLEAR CLEAR Urine pH 7.0 5.0-8.0 Urine Specific [place] 1.032 H 1.001-1.031 Urine Protein NEGATIVE NEGATIVE mg/dL Urine Glucose (UA) >=1000 H NEGATIVE mg/dL Urine Ketones 150 H NEGATIVE mg/dL Urine Occult Blood NEGATIVE NEGATIVE Urine Nitrate NEGATIVE NEGATIVE Urine Bilirubin NEGATIVE NEGATIVE mg/dL Urine Urobilinogen 0.2 0.2-1.0 mg/dL Urine Leukocyte Esterase NEGATIVE NEGATIVE [place]/uL Urine RBC 0-1 0-1 /HPF Urine WBC 0-1 0-1 /HPF Urine Squamous Epithelial Cells RARE 0-2 /HPF Urine Bacteria None None Seen /HPF Urine Opiates Screen NEGATIVE NEGATIVE Urine Barbiturates Screen NEGATIVE NEGATIVE Urine Phencyclidine Screen NEGATIVE NEGATIVE Urine Amphetamines Screen NEGATIVE NEGATIVE Urine Benzodiazepines Screen NEGATIVE NEGATIVE Urine Cocaine Screen NEGATIVE NEGATIVE Urine Marijuana (THC) Screen NEGATIVE NEGATIVE Test 05/15/25 17:41 Range/Units Direct Bilirubin 0.1 0.0-0.3 mg/dL Total Creatine Kinase 42 # 21-232 U/L Troponin I High Sensitivity < 4 L 4-50 ng/L Lipase 14 L 16-77 U/L Serum Test, Qualitative NEGATIVE NEGATIVE Current Medications Medications (Trade) Dose Ordered Sig/Neva Route PRN Reason Start Time Stop Time Status Last Admin Dose Admin Acetaminophen (TYLenol 325MG TAB) 650 mg Q4H PRN PO MILD PAIN (1-3) 05/15/25 22:00 06/14/25 21:59 Acetaminophen (TYLenol 325MG TAB) 650 mg Q6H PRN PO TEMPERATURE GREATER THAN 101.5 05/15/25 22:00 06/14/25 21:59 Dextrose (D50w) 50 ml AD PRN IV HYPOGLYCEMIA PROTOCOL 05/15/25 22:00 06/14/25 21:59 Glucagon (Glucagon 1mg Kit) 1 mg AD PRN IM HYPOGLYCEMIA PROTOCOL 05/15/25 22:00 06/14/25 21:59 Insulin Human Regular (humuLIN R 100 UNIT/ML 3ML) INSULIN SLIDING SCAL... ACHS SQ 05/16/25 07:30 06/15/25 07:29 05/16/25 08:18 4 UNIT Magnesium Sulfate 50 ml @ 0 mls/hr PROTOCOL IV 05/15/25 19:30 06/14/25 19:29 05/15/25 19:56 25 MLS/HR Magnesium Sulfate 50 ml @ 0 mls/hr PROTOCOL PRN IV OTHER [SEE ORDER COMMENTS] 05/15/25 22:00 06/14/25 21:59 Metoclopramide HCl (regLAN 10MG IV) 10 mg Q6H PRN IVP OTHER [SEE ORDER COMMENTS] 05/15/25 22:00 06/14/25 21:59 Ondansetron HCl (zoFRAN 4MG INJ) 4 mg Q6H PRN IV NAUSEA/VOMITING 05/15/25 22:00 06/14/25 21:59 Pantoprazole Sodium (PROTonix 40MG INJ) 40 mg DAILY IVP 05/16/25 09:00 06/15/25 08:59 05/16/25 08:46 40 MG Potassium Chloride 100 ml @ 50 mls/hr AD PRN IV POTASSIUM PROTOCOL 05/15/25 22:00 06/14/25 21:59 Sodium Chloride 1,000 ml @ 100 mls/hr Q10H IV 05/15/25 22:00 06/14/25 21:59 05/16/25 08:43 100 MLS/HR DIAGNOSTICS / RADIOLOGY: [ ] ASSESSMENT: Intractable abdominal pain POA Intractable nausea and vomiting POA Poorly controlled gastroparesis POA Normocytic normochromic anemia POA Uncontrolled diabetes POA Hypomagnesemia POA PLAN: power chart reviewed, vital signs, laboratory tests, imaging tests and medications reviewed, BP 120/64, heart rate of 104, afebrile, saturating normal on room air, hemoglobin 9.2, hematocrit 39.2, WBC 8.5, platelet count of 351, blood glucose level 0231, hemoglobin A1c 7.5, troponin less than four, albumin 3.2, serum test negative, urine drug screen negative. Patient with a history of diabetes gastroparesis, continue Reglan IV, continue Protonix 40 mg IV b.i.d.. Repeat CBC today, transfuse 1 unit of PRBC if hemoglobin less than seven. Patient underwent an ERCP with sphincterotomy and papillotomy on 03/27/2025. Patient also underwent a gastric emptying study on 03/24/2025 result suggests gastroparesis. GI consultation requested, follow input and recommendation. NEURO: Minimize central acting medications as possible. Fall Precautions. Well lighted room through the day and minimize interruptions through the night to prevent acute delirium. PULMONARY: Supplemental 02 as needed BiPAP as necessary, for respiratory distress Titrate Fio2 to keep Spo2 > or = 90% DuoNebs and CPT as needed IS hourly while awake for pulmonary hygiene prn Out of bed to chair as tolerated Maintain aspiration precautions at all times CARDIOVASCULAR: Follow hemodynamics. Vital signs per facility protocol GI & NUTRITION: Continue nutritional support Aspirations precautions Prokinetic agents and laxatives as needed KIDNEYS & ELECTROLYTES: Strict monitoring of intake and output Daily weights Avoid nephrotoxic agents Monitor electrolytes and replace as needed Goal urine output of 30mL/hr or 0.5mL/kg/hr Medications to be dosed according to renal function. Avoid contrast if possible ENDOCRINE: Maintain blood glucose between 100-180 at all times. Insulin sliding scale for blood glucose management Hypoglycemia and hyperglycemia protocol in place INFECTIOUS DISEASE: Trend temperature, WBC and procalcitonin level Follow cultures, deescalate antibiotics as soon as possible. Panculture if new onset fever HEMATOLOGY & COAGULATION: Monitor H&H. Keep Hgb > 7 Transfuse 1 unit of PRBC for Hgb < 7 Transfuse 1 pack of platelets of platelets < 20, 000 Watch for any signs and symptoms of bleeding SKIN: Pressure ulcer prevention per facility protocol Specialty mattress as needed ORTHO/REHAB Continue PT/OT PRN: MEDICATIONS Tylenol 650 mg po every 4 hrs for fever zofran 4 mg IV every 6 hrs for n/v Hydralazine 5 mg IV every 4 hrs systolic pressure > 160 bowel regiment: lactulose 20 gm PO BID PRN constipation Supportive measures: Continue GI and DVT prophylaxis Disposition: Pending improvement in clinical condition All questions answered time spent: > 35 min CHEKO SPARKS MD May 16, 2025 09:45
--- NOTE | 2025-05-16 10:49 | NUR ---
DCP:HOME Pt currently lives at home with her and children. Pt receives $1000 in SNAP. Pt denies having any DME, home health, or provider services. Pt states that she is able to complete ADLs independently. Pt does not have a PCP however states that he is trying to get her on his insurance plan and get a PCP. At [place] pt will want to go home and family can assist with transportation
[2025-05-16 12:00] VITALS: BP 105/65; PULSE 85; RESP 18; TEMP 98.1
[2025-05-16] MEDS: LACTATED RINGERS 1000ML 1,000 ML IV SCH (12:12)
[2025-05-16 13:06] LABS: NUCLEATED RED BLOOD CELLS 0.0 % (0.0-0.19); PLATELET COUNT (AUTO) 401.0 K/uL (130-400); RED BLOOD CELL COUNT(AUTO) 3.67 MIL/uL (4.00-5.50); RED CELL DISTRIBUTION WIDTH 13.8 % (11.0-15.5); WHITE BLOOD COUNT (AUTO) 8.4 K/uL (4.8-10.8)
--- NOTE | 2025-05-16 14:30 | CONS ---
GASTROENTEROLOGY CONSULTATION NOTE Date of Consultation: May 16, 2025 Time of Consultation: 14:30 History of Present Illness: This is a 39-year-old female with past medical history of diabetes and gastroparesis who presented due to epigastric pain, nausea and vomiting. Patient recently had EGD and ERCP on 03/27/2025. She had a gastric emptying scan revealing gastroparesis. She presented due to epigastric pain, nausea and vomiting were recalled for this reason. LFTs normal. Review of Systems: CONSTITUTIONAL: No malaise or change in sensation of wellbeing. ENMT: No rhinorrhea, otorrhea, sinus pain, ear ache. CARDIOVASCULAR: No angina, palpitations, orthopnea or paroxysmal dyspnea. RESPIRATORY: No SOB. GASTROINTESTINAL: No abdominal pain, nausea, vomiting, diarrhea, hematemesis, melena or change in the patient's habitual bowel movements consistency/number. GENITOURINARY: No dysuria, hematuria or change in bladder continence. MUSCULOSKELETAL: No new muscle pain or decrease in muscular strength. No new joint swelling, redness or tenderness. SKIN: No new rash. Past Medical History: PAST MEDICAL HISTORY: [ Diabetes and gastroparesis ] PAST SURGICAL HISTORY: [ Cholecystectomy x6 ] PAST SOCIAL HISTORY: [ Patient lives with . Patient denies alcohol tobacco and recreational drug use] FAMILY HISTORY: [ Hypertension and diabetes] Coded Allergies: No Known Drug Allergies (Unverified Allergy, Unknown, 10/02/15) Coded Allergies: No Known Drug Allergies (Unverified Allergy, Unknown, 10/02/15) Physical Exam: GEN: Awake, alert, oriented in person, time and place, and in no acute distress. HEENT: No sinus tenderness. Tympanic membranes were not examined. No rhinorrhea. Oral pharyngeal mucosa is pink, moist and within normal limits. Neck is supple with no cervical lymphadenopathy, thyromegaly or JVD. CHEST: Inspection, palpation and percussion of the chest were unremarkable. Lung auscultation revealed normal breath sounds bilaterally. CARDIAC: PMI is within normal limits. Heart sounds are regular. Normal S1, S2. No gallop or murmur. ABD: Soft, non-tender and not distended. No peritoneal signs on palpation. No organomegaly. Normal bowel sounds. EXT: No cyanosis or clubbing. No edema. SKIN: Intact. No rashes. JOINTS: No evidence of synovitis or acute arthritis. NEURO: Alert and oriented to name, place and person. Cranial nerve examination is unremarkable. No focal motor deficits. Normal speech. Gait is normal. Strength is normal. Vital Sign (Last 24 Hours) 05/16/25 05/16/25 07:23 12:00 Temp 98.1 Pulse 85 Resp 18 B/P (MAP) 105/65 Pulse Ox 98 O2 Delivery Room Air O2 Flow Rate 0 FiO2 21 Laboratory: [ ] Laboratory: Test 05/16/25 13:00 05/16/25 11:51 05/16/25 06:40 05/15/25 22:25 Range/Units White Blood Count 8.4 4.8-10.8 K/uL Red Blood Count 3.67 L 4.00-5.50 MIL/uL Hemoglobin 10.2 L 12.0-16.0 g/dL Hematocrit 31.3 L 36-48 % Mean Corpuscular Volume 85.3 79-99 fL Mean Corpuscular Hemoglobin 27.8 27.0-33.0 pg Mean Corpuscular Hemoglobin Concent 32.6 32.0-36.0 g/dL Red Cell Distribution Width 13.8 11.0-15.5 % Platelet Count 401 H 130-400 K/uL Mean Platelet Volume 10.9 H 7.5-10.5 fL Nucleated Red Blood Cells 0.0 0.0-0.19 % Whole Blood Glucose 207 H 70-110 MG/DL Immature Granulocyte % (Auto) 0.4 0-1 % Neutrophils (%) (Auto) 71.6 40.0-77.0 % Lymphocytes (%) (Auto) 20.5 L 21.0-51.0 % Monocytes (%) (Auto) 7.3 3.0-13.0 % Eosinophils (%) (Auto) 0.0 0.0-8.0 % Basophils (%) (Auto) 0.2 0.0-5.0 % Neutrophils # (Auto) 6.1 1.8-7.7 K/uL Lymphocytes # (Auto) 1.7 1.0-4.8 K/uL Monocytes # (Auto) 0.6 0.1-1.0 K/uL Eosinophils # (Auto) 0.00 0.00-0.70 K/uL Basophils # (Auto) 0.02 0.00-0.20 K/uL Absolute Immature Granulocyte (auto 0.03 0-1 K/uL Sodium Level 134 L 136-145 mmol/L Potassium Level 3.7 3.5-5.1 mmol/L Chloride Level 101 101-111 mmol/L Carbon Dioxide Level 23 21-32 mmol/L Blood Urea Nitrogen 12 7-18 mg/dL Creatinine 0.5 0.5-1.0 mg/dL Glomerular Filtration Rate Calc 124 >90 mL/min Random Glucose 251 H 70-105 mg/dL Total Calcium 8.0 L 8.5-10.1 mg/dL Magnesium Level 2.10 1.80-2.40 mg/dL Total Bilirubin 0.4 0.2-1.0 mg/dL Aspartate Amino Transf (AST/SGOT) 11 10-37 U/L Alanine Aminotransferase (ALT/SGPT) 20 12-78 U/L Alkaline Phosphatase 69 50-136 U/L Total Protein 6.7 6.0-8.3 g/dL Albumin 3.2 L 3.5-5.0 g/dL Thyroid Stimulating Hormone (TSH) 1.13 0.36-3.74 uIU/mL Hemoglobin A1c 7.5 H 4.0-6.0 % Estimated Average Glucose (eAG) 169 H 70-126 mg/dL Test 05/15/25 18:43 05/15/25 17:41 Range/Units Urine Color LIGHT-YELLOW YELLOW Urine Appearance CLEAR CLEAR Urine pH 7.0 5.0-8.0 Urine Specific [place] 1.032 H 1.001-1.031 Urine Protein NEGATIVE NEGATIVE mg/dL Urine Glucose (UA) >=1000 H NEGATIVE mg/dL Urine Ketones 150 H NEGATIVE mg/dL Urine Occult Blood NEGATIVE NEGATIVE Urine Nitrate NEGATIVE NEGATIVE Urine Bilirubin NEGATIVE NEGATIVE mg/dL Urine Urobilinogen 0.2 0.2-1.0 mg/dL Urine Leukocyte Esterase NEGATIVE NEGATIVE [place]/uL Urine RBC 0-1 0-1 /HPF Urine WBC 0-1 0-1 /HPF Urine Squamous Epithelial Cells RARE 0-2 /HPF Urine Bacteria None None Seen /HPF Urine Opiates Screen NEGATIVE NEGATIVE Urine Barbiturates Screen NEGATIVE NEGATIVE Urine Phencyclidine Screen NEGATIVE NEGATIVE Urine Amphetamines Screen NEGATIVE NEGATIVE Urine Benzodiazepines Screen NEGATIVE NEGATIVE Urine Cocaine Screen NEGATIVE NEGATIVE Urine Marijuana (THC) Screen NEGATIVE NEGATIVE Direct Bilirubin 0.1 0.0-0.3 mg/dL Total Creatine Kinase 42 # 21-232 U/L Troponin I High Sensitivity < 4 L 4-50 ng/L Lipase 14 L 16-77 U/L Serum Test, Qualitative NEGATIVE NEGATIVE Current Medications Medications (Trade) Dose Ordered Sig/Neva Route PRN Reason Start Time Stop Time Status Last Admin Dose Admin Acetaminophen (TYLenol 325MG TAB) 650 mg Q4H PRN PO MILD PAIN (1-3) 05/15/25 22:00 06/14/25 21:59 Acetaminophen (TYLenol 325MG TAB) 650 mg Q6H PRN PO TEMPERATURE GREATER THAN 101.5 05/15/25 22:00 06/14/25 21:59 Dextrose (D50w) 50 ml AD PRN IV HYPOGLYCEMIA PROTOCOL 05/15/25 22:00 06/14/25 21:59 Glucagon (Glucagon 1mg Kit) 1 mg AD PRN IM HYPOGLYCEMIA PROTOCOL 05/15/25 22:00 06/14/25 21:59 Insulin Human Regular (humuLIN R 100 UNIT/ML 3ML) INSULIN SLIDING SCAL... ACHS SQ 05/16/25 07:30 06/15/25 07:29 05/16/25 12:20 3 UNIT Lactated Ringer's 1,000 ml @ 75 mls/hr [id number] IV 05/16/25 11:00 06/15/25 10:59 05/16/25 12:12 75 MLS/HR Magnesium Sulfate 50 ml @ 0 mls/hr PROTOCOL IV 05/15/25 19:30 06/14/25 19:29 05/15/25 19:56 25 MLS/HR Magnesium Sulfate 50 ml @ 0 mls/hr PROTOCOL PRN IV OTHER [SEE ORDER COMMENTS] 05/15/25 22:00 06/14/25 21:59 Metoclopramide HCl (regLAN 10MG IV) 10 mg Q6H PRN IVP OTHER [SEE ORDER COMMENTS] 05/15/25 22:00 06/14/25 21:59 Ondansetron HCl (zoFRAN 4MG INJ) 4 mg Q6H PRN IV NAUSEA/VOMITING 05/15/25 22:00 06/14/25 21:59 Pantoprazole Sodium (PROTonix 40MG INJ) 40 mg DAILY IVP 05/16/25 09:00 06/15/25 08:59 05/16/25 08:46 40 MG Potassium Chloride 100 ml @ 50 mls/hr AD PRN IV POTASSIUM PROTOCOL 05/15/25 22:00 06/14/25 21:59 Sodium Chloride 1,000 ml @ 100 mls/hr Q10H IV 05/15/25 22:00 05/16/25 10:51 DC 05/16/25 08:43 100 MLS/HR Diagnostics / Radiology: [COPY/PASTE HERE IF NO REPORTS PLEASE DELETE SECTION] Assessment: Epigastric pain N/V Gastroparesis Dilated CBD Plan: Obtain MRCP to r/o cbd stone Trend LFTs Reglan for gastroparesis Continue GI prophylaxis Advance diet as tolerated Avoid NSAIDs Antireflux measures Monitor H&H and transfuse as needed Call with questions, concerns or change in clinical status Patient to follow-up at clinic post discharge Thank you for this consult NADINE POZO [employer] May 16, 2025 14:30
[2025-05-16] MEDS ORDERED: PHARMACY COMMUNICATION 1 EACH EACH MISC SCH (15:00)
[2025-05-16 16:00] VITALS: BP 112/76; PULSE 81; RESP 19; TEMP 98.5
[2025-05-16] MEDS ORDERED: IOHEXOL-350 75 ML VIAL IV ONE (17:10)
--- NOTE | 2025-05-16 17:32 | NUR ---
Pt. taken to CT, returned. Reports Nausea.
--- NOTE | 2025-05-16 19:07 | HMCIMG ---
EXAM: CT Abdomen and Pelvis with and without IV contrast CLINICAL HISTORY: Nausea and vomiting. Recent ERCP. TECHNIQUE: Axial computed tomography images of the abdomen and pelvis with and without intravenous contrast. CONTRAST: with and without intravenous contrast. COMPARISON: Mar 22, 2025 CT Abdomen and Pelvis without IV contrast. FINDINGS: LUNG BASES: The lung bases appear clear. No pleural effusions are seen. LIVER: The liver is enlarged, measuring approximately 19 cm, and demonstrates fatty infiltration. GALLBLADDER AND BILE DUCTS: Status post cholecystectomy. Mild dilation of the common bile duct measuring up to 1.1 cm. PANCREAS: Unremarkable. SPLEEN: Unremarkable. ADRENAL GLANDS: Unremarkable. KIDNEYS, URETERS, AND BLADDER: The kidneys appear within normal limits. There is no hydronephrosis or hydroureter. No urinary calculi are seen. STOMACH AND BOWEL: Unremarkable appearance of the stomach and bowel. No evidence of bowel obstruction. No evidence suggesting enteritis or colitis.Mild fecal loading of the colon. APPENDIX: No evidence of acute appendicitis on CT examination. PERITONEUM: No free fluid. No free air. LYMPH NODES: No lymphadenopathy is evident. REPRODUCTIVE: Unremarkable as visualized. VASCULATURE: No evidence of abdominal aortic aneurysm. BONES: No aggressive appearing osseous lesion. No acute osseous pathology is evident. Mild Degenerative changes in the lumbar spine. A stable sclerotic focus measuring 0.7 cm in the left proximal femur is likely a benign bone island. IMPRESSION: Mild dilation of the common bile duct at 1.1 cm in the setting of prior cholecystectomy. Consider MRCP to further assess for choledocholithiasis or stricture. Hepatomegaly with fatty infiltration. Urinary bladder wall thickening measuring 6 mm is concerning for cystitis. Recommend urinalysis and urine culture for evaluation of cystitis. No acute intra-abdominal or pelvic abnormality identified. /[place]
[2025-05-16 19:45] VITALS: BP 98/62; PULSE 79; RESP 17; TEMP 98.7
[2025-05-17] VITALS: BP 158/94; PULSE 103; RESP 17; TEMP 98.6
[2025-05-17 04:00] VITALS: BP 157/98; PULSE 110; RESP 17; TEMP 98.3
[2025-05-17 05:56] LABS: NUCLEATED RED BLOOD CELLS 0.0 % (0.0-0.19); PLATELET COUNT (AUTO) 401.0 K/uL (130-400); RED BLOOD CELL COUNT(AUTO) 3.77 MIL/uL (4.00-5.50); RED CELL DISTRIBUTION WIDTH 13.3 % (11.0-15.5); WHITE BLOOD COUNT (AUTO) 7.7 K/uL (4.8-10.8)
[2025-05-17 06:45] LABS: ASPARTATE AMINOTRANSFERASE 13.0 U/L (10-37); CREATININE 0.4 mg/dL (0.5-1.0); GLOMERULAR FILTR. RATE CALC 131.0 mL/min (>90); GLUCOSE,RANDOM 216.0 mg/dL (70-105); SODIUM SERUM 134.0 mmol/L (136-145); TOTAL PROTEIN, SERUM 7.2 g/dL (6.0-8.3); UREA NITROGEN, BLOOD 9.0 mg/dL (7-18)
[2025-05-17 08:00] VITALS: BP 103/58; PULSE 89; RESP 19; TEMP 98.4
[2025-05-17 11:35] VITALS: BP 91/67; PULSE 79; RESP 18; TEMP 98.1
--- NOTE | 2025-05-17 12:10 | PN ---
[facility] PROGRESS NOTE Date of Service: May 17, 2025 Time of Service: 12:09 SUBJECTIVE: 05/16 power chart reviewed, vital signs, laboratory tests, imaging tests and medications reviewed, BP 120/64, heart rate of 104, afebrile, saturating normal on room air, hemoglobin 9.2, hematocrit 39.2, WBC 8.5, platelet count of 351, blood glucose level 0231, hemoglobin A1c 7.5, troponin less than four, albumin 3.2, serum test negative, urine drug screen negative. Patient with a history of diabetes gastroparesis, continue Reglan IV, continue Protonix 40 mg IV b.i.d.. Repeat CBC today, transfuse 1 unit of PRBC if hemoglobin less than seven. Patient underwent an ERCP with sphincterotomy and papillotomy on 03/27/2025. Patient also underwent a gastric emptying study on 03/24/2025 result suggests gastroparesis.GI consultation requested, follow input and recommendation. During my visit the patient comfortably in bed, alert oriented x3, hemodynamically stable, denies chest pain, shortness shortness for breath, no nausea, no vomiting, no abdominal discomfort. We will started LR at 75 mL/hr, clear liquid diet. 05/17 patient is seen and examined at bedside, discussed with the RN, no acute events overnight, patient comfortably in bed, alert oriented x3, on clear liquid diet, still mildly nauseated, but not actively vomiting, denies abdominal discomfort. Patient evaluated by Gastroenterology, patient is scheduled for MRCP today. Continue to follow CBC in a.m. transfuse as needed, replace electrolytes IV per protocol. Advanced diet as tolerated. Discussed with the patient, in agreement. REVIEW OF SYSTEMS CONSTITUTIONAL: Denies fevers, chills, or night sweats. No unintentional weight loss reported. NEUROLOGICAL: Denies headache, amaurosis fugax, motor weakness, sensory deficit, vertigo/spinning sensation, gait abnormalities, or tremors. ENT: No hearing loss, otalgia, otorrhea, rhinitis, rhinorrhea, hoarseness, or sore throat. CARDIOVASCULAR: Denies any exertional angina, dyspnea on exertion, orthopnea, paroxysmal nocturnal dyspnea, palpitations, life-threatening arrhythmias, claudication. PULMONARY: Denies any shortness of breath, cough, phlegm/sputum, hemoptysis, pleuritic chest pain. SLEEP: Denies morning headaches, daytime somnolence or napping. Denies difficulty falling asleep, staying asleep, waking from sleep. Denies knowledge of snoring. GASTROINTESTINAL: Complain of epigastric pain nausea and vomiting Denies any type of dysphagia to either liquids or solids. Denies pyrosis, early satiety, diarrhea, constipation, or changes in stool consistency or caliber. Denies cof fee-ground emesis, hematemesis, hematochezia, or melanotic stools. GENITOURINARY: Denies frequency, urgency, nocturia, hematuria or incontinence (Storage/Irritative symptoms.) Low urinary stream, straining to void, urinary intermittency or hesitancy, splitting of the voiding stream, terminal dribbling. ENDOCRINOLOGIC: Denies polyuria, polydipsia, polyphagia or heat/cold intolerances. HEMATOLOGIC: Denies thrombophilia/previous clots, or coagulopathy/bleeding disorders. ONCOLOGIC: Denies personal history of malignancy. DERMATOLOGIC: Denies rashes or pruritus. PSYCHIATRIC: Denies any suicidal or homicidal ideation. Denies hallucinations. PHYSICAL EXAM GENERAL APPEARANCE: The patient is awake, alert, and oriented, in no acute cardiopulmonary distress. NEUROLOGICAL: Cranial nerves II-XII grossly intact. Motor is 5/5 in bilateral upper and lower extremities proximal to distal. No sensory deficits. HEENT: Face is symmetric. Pupils are equal and reactive. Extraocular movements are intact. NECK: Supple. No JVD. No thyromegaly. No submental, submandibular, pre- /postauricular, occipital or supraclavicular lymphadenopathy. CHEST: Normal chest expansion. No Telemetry. LUNGS: Absence of any rales, rhonchi or any wheezing. CARDIOVASCULAR: Regular. S1 and S2 normal. No appreciable rubs, murmurs or gallops. ABDOMEN: Abdominal tenderness around epigastric area on palpation Softand nondistended. There is no rebound, voluntary guarding, or rigidity. : Deferred. No Nuñez. EXTREMITIES: Non-edematous and not cyanotic. No clubbing. Good capillary refill. SKIN: No skin breakdown. Vital Signs (last 8hr) Date Time Temp Pulse Resp B/P (MAP) Pulse Ox O2 Delivery O2 Flow Rate FiO2 05/17/25 11:35 98.1 79 18 91/67 96 Room Air 21 05/17/25 08:00 98.4 89 19 103/58 98 Room Air 21 LABS: Laboratory: Test 05/17/25 11:09 05/17/25 05:23 05/16/25 06:40 05/15/25 22:25 Range/Units Whole Blood Glucose 137 H 70-110 MG/DL White Blood Count 7.7 4.8-10.8 K/uL Red Blood Count 3.77 L 4.00-5.50 MIL/uL Hemoglobin 10.4 L 12.0-16.0 g/dL Hematocrit 31.7 L 36-48 % Mean Corpuscular Volume 84.1 79-99 fL Mean Corpuscular Hemoglobin 27.6 27.0-33.0 pg Mean Corpuscular Hemoglobin Concent 32.8 32.0-36.0 g/dL Red Cell Distribution Width 13.3 11.0-15.5 % Platelet Count 401 H 130-400 K/uL Mean Platelet Volume 11.2 H 7.5-10.5 fL Nucleated Red Blood Cells 0.0 0.0-0.19 % Sodium Level 134 L 136-145 mmol/L Potassium Level 3.7 3.5-5.1 mmol/L Chloride Level 99 L 101-111 mmol/L Carbon Dioxide Level 23 21-32 mmol/L Blood Urea Nitrogen 9 7-18 mg/dL Creatinine 0.4 L 0.5-1.0 mg/dL Glomerular Filtration Rate Calc 131 >90 mL/min Random Glucose 216 H 70-105 mg/dL Total Calcium 8.2 L 8.5-10.1 mg/dL Magnesium Level 1.80 1.80-2.40 mg/dL Total Bilirubin 0.4 0.2-1.0 mg/dL Aspartate Amino Transf (AST/SGOT) 13 10-37 U/L Alanine Aminotransferase (ALT/SGPT) 20 12-78 U/L Alkaline Phosphatase 72 50-136 U/L Total Protein 7.2 6.0-8.3 g/dL Albumin 3.4 L 3.5-5.0 g/dL Immature Granulocyte % (Auto) 0.4 0-1 % Neutrophils (%) (Auto) 71.6 40.0-77.0 % Lymphocytes (%) (Auto) 20.5 L 21.0-51.0 % Monocytes (%) (Auto) 7.3 3.0-13.0 % Eosinophils (%) (Auto) 0.0 0.0-8.0 % Basophils (%) (Auto) 0.2 0.0-5.0 % Neutrophils # (Auto) 6.1 1.8-7.7 K/uL Lymphocytes # (Auto) 1.7 1.0-4.8 K/uL Monocytes # (Auto) 0.6 0.1-1.0 K/uL Eosinophils # (Auto) 0.00 0.00-0.70 K/uL Basophils # (Auto) 0.02 0.00-0.20 K/uL Absolute Immature Granulocyte (auto 0.03 0-1 K/uL Thyroid Stimulating Hormone (TSH) 1.13 0.36-3.74 uIU/mL Hemoglobin A1c 7.5 H 4.0-6.0 % Estimated Average Glucose (eAG) 169 H 70-126 mg/dL Test 05/15/25 18:43 05/15/25 17:41 Range/Units Urine Color LIGHT-YELLOW YELLOW Urine Appearance CLEAR CLEAR Urine pH 7.0 5.0-8.0 Urine Specific [place] 1.032 H 1.001-1.031 Urine Protein NEGATIVE NEGATIVE mg/dL Urine Glucose (UA) >=1000 H NEGATIVE mg/dL Urine Ketones 150 H NEGATIVE mg/dL Urine Occult Blood NEGATIVE NEGATIVE Urine Nitrate NEGATIVE NEGATIVE Urine Bilirubin NEGATIVE NEGATIVE mg/dL Urine Urobilinogen 0.2 0.2-1.0 mg/dL Urine Leukocyte Esterase NEGATIVE NEGATIVE [place]/uL Urine RBC 0-1 0-1 /HPF Urine WBC 0-1 0-1 /HPF Urine Squamous Epithelial Cells RARE 0-2 /HPF Urine Bacteria None None Seen /HPF Urine Opiates Screen NEGATIVE NEGATIVE Urine Barbiturates Screen NEGATIVE NEGATIVE Urine Phencyclidine Screen NEGATIVE NEGATIVE Urine Amphetamines Screen NEGATIVE NEGATIVE Urine Benzodiazepines Screen NEGATIVE NEGATIVE Urine Cocaine Screen NEGATIVE NEGATIVE Urine Marijuana (THC) Screen NEGATIVE NEGATIVE Direct Bilirubin 0.1 0.0-0.3 mg/dL Total Creatine Kinase 42 # 21-232 U/L Troponin I High Sensitivity < 4 L 4-50 ng/L Lipase 14 L 16-77 U/L Serum Test, Qualitative NEGATIVE NEGATIVE Current Medications Medications (Trade) Dose Ordered Sig/Neva Route PRN Reason Start Time Stop Time Status Last Admin Dose Admin Acetaminophen (TYLenol 325MG TAB) 650 mg Q4H PRN PO MILD PAIN (1-3) 05/15/25 22:00 06/14/25 21:59 Acetaminophen (TYLenol 325MG TAB) 650 mg Q6H PRN PO TEMPERATURE GREATER THAN 101.5 05/15/25 22:00 06/14/25 21:59 Dextrose (D50w) 50 ml AD PRN IV HYPOGLYCEMIA PROTOCOL 05/15/25 22:00 06/14/25 21:59 Glucagon (Glucagon 1mg Kit) 1 mg AD PRN IM HYPOGLYCEMIA PROTOCOL 05/15/25 22:00 06/14/25 21:59 Insulin Human Regular (humuLIN R 100 UNIT/ML 3ML) INSULIN SLIDING SCAL... ACHS SQ 05/16/25 07:30 06/15/25 07:29 05/17/25 06:49 4 UNIT Lactated Ringer's 1,000 ml @ 75 mls/hr [id number] IV 05/16/25 11:00 06/15/25 10:59 05/17/25 04:40 75 MLS/HR Magnesium Sulfate 50 ml @ 0 mls/hr PROTOCOL IV 05/15/25 19:30 06/14/25 19:29 05/15/25 19:56 25 MLS/HR Magnesium Sulfate 50 ml @ 0 mls/hr PROTOCOL PRN IV OTHER [SEE ORDER COMMENTS] 05/15/25 22:00 05/17/25 06:13 DC Metoclopramide HCl (regLAN 10MG IV) 10 mg Q6H IVP 05/16/25 22:00 05/16/25 22:16 DC Metoclopramide HCl (regLAN 10MG IV) 10 mg Q6H IVP 05/16/25 23:30 06/15/25 23:29 05/17/25 11:45 10 MG Metoclopramide HCl (regLAN 10MG IV) 10 mg Q6H PRN IVP OTHER [SEE ORDER COMMENTS] 05/15/25 22:00 05/16/25 18:43 DC 05/16/25 18:30 10 MG Ondansetron HCl (zoFRAN 4MG INJ) 4 mg Q6H PRN IV NAUSEA/VOMITING 05/15/25 22:00 06/14/25 21:59 05/17/25 04:36 4 MG Pantoprazole Sodium (PROTonix 40MG INJ) 40 mg DAILY IVP 05/16/25 09:00 06/15/25 08:59 05/17/25 09:00 40 MG Pharmacy Profile Note (Lace Assessment) 1 each AD MISC 05/16/25 15:00 05/16/25 14:56 DC Potassium Chloride 100 ml @ 50 mls/hr AD PRN IV POTASSIUM PROTOCOL 05/15/25 22:00 06/14/25 21:59 Sodium Chloride 1,000 ml @ 100 mls/hr Q10H IV 05/15/25 22:00 05/16/25 10:51 DC 05/16/25 08:43 100 MLS/HR DIAGNOSTICS / RADIOLOGY: [ ] ASSESSMENT: Intractable abdominal pain POA Intractable nausea and vomiting POA Poorly controlled gastroparesis POA Normocytic normochromic anemia POA Uncontrolled diabetes POA Hypomagnesemia POA PLAN: patient is seen and examined at bedside, discussed with the RN, no acute events overnight, patient comfortably in bed, alert oriented x3, on clear liquid diet, still mildly nauseated, but not actively vomiting, denies abdominal discomfort. Patient evaluated by Gastroenterology, patient is scheduled for MRCP today. Continue to follow CBC in a.m. transfuse as needed, replace electrolytes IV per protocol. Advanced diet as tolerated. Discussed with the patient, in agreement. NEURO: Minimize central acting medications as possible. Fall Precautions. Well lighted room through the day and minimize interruptions through the night to prevent acute delirium. PULMONARY: Supplemental 02 as needed BiPAP as necessary, for respiratory distress Titrate Fio2 to keep Spo2 > or = 90% DuoNebs and CPT as needed IS hourly while awake for pulmonary hygiene prn Out of bed to chair as tolerated Maintain aspiration precautions at all times CARDIOVASCULAR: Follow hemodynamics. Vital signs per facility protocol GI & NUTRITION: Continue nutritional support Aspirations precautions Prokinetic agents and laxatives as needed KIDNEYS & ELECTROLYTES: Strict monitoring of intake and output Daily weights Avoid nephrotoxic agents Monitor electrolytes and replace as needed Goal urine output of 30mL/hr or 0.5mL/kg/hr Medications to be dosed according to renal function. Avoid contrast if possible ENDOCRINE: Maintain blood glucose between 100-180 at all times. Insulin sliding scale for blood glucose management Hypoglycemia and hyperglycemia protocol in place INFECTIOUS DISEASE: Trend temperature, WBC and procalcitonin level Follow cultures, deescalate antibiotics as soon as possible. Panculture if new onset fever HEMATOLOGY & COAGULATION: Monitor H&H. Keep Hgb > 7 Transfuse 1 unit of PRBC for Hgb < 7 Transfuse 1 pack of platelets of platelets < 20, 000 Watch for any signs and symptoms of bleeding SKIN: Pressure ulcer prevention per facility protocol Specialty mattress as needed ORTHO/REHAB Continue PT/OT PRN: MEDICATIONS Tylenol 650 mg po every 4 hrs for fever zofran 4 mg IV every 6 hrs for n/v Hydralazine 5 mg IV every 4 hrs systolic pressure > 160 bowel regiment: lactulose 20 gm PO BID PRN constipation Supportive measures: Continue GI and DVT prophylaxis Disposition: Pending improvement in clinical condition All questions answered time spent: > 35 min CHEKO SPARKS MD May 17, 2025 12:10
--- NOTE | 2025-05-17 12:54 | PN ---
GASTROENTEROLOGY PROGRESS NOTE Date of Visit: May 17, 2025 Time of Visit: 12:54 Events / Notes: This is a 39-year-old female with past medical history of diabetes and gastroparesis who presented due to epigastric pain, nausea and vomiting. Patient recently had EGD and ERCP on 03/27/2025. She had a gastric emptying scan revealing gastroparesis. She presented due to epigastric pain, nausea and vomiting were recalled for this reason. LFTs normal. Review of Systems: CONSTITUTIONAL: No malaise or change in sensation of wellbeing. ENMT: No rhinorrhea, otorrhea, sinus pain, ear ache. CARDIOVASCULAR: No angina, palpitations, orthopnea or paroxysmal dyspnea. RESPIRATORY: No SOB. GASTROINTESTINAL: No abdominal pain, nausea, vomiting, diarrhea, hematemesis, melena or change in the patient's habitual bowel movements consistency/number. GENITOURINARY: No dysuria, hematuria or change in bladder continence. MUSCULOSKELETAL: No new muscle pain or decrease in muscular strength. No new joint swelling, redness or tenderness. SKIN: No new rash. Physical Exam: GEN: Awake, alert, oriented in person, time and place, and in no acute distress. HEENT: No sinus tenderness. Tympanic membranes were not examined. No rhinorrhea. Oral pharyngeal mucosa is pink, moist and within normal limits. Neck is supple with no cervical lymphadenopathy, thyromegaly or JVD. CHEST: Inspection, palpation and percussion of the chest were unremarkable. Lung auscultation revealed normal breath sounds bilaterally. CARDIAC: PMI is within normal limits. Heart sounds are regular. Normal S1, S2. No gallop or murmur. ABD: Soft, non-tender and not distended. No peritoneal signs on palpation. No organomegaly. Normal bowel sounds. EXT: No cyanosis or clubbing. No edema. SKIN: Intact. No rashes. JOINTS: No evidence of synovitis or acute arthritis. NEURO: Alert and oriented to name, place and person. Cranial nerve examination is unremarkable. No focal motor deficits. Normal speech. Gait is normal. Strength is normal. Vital Signs (last 8hr) Date Time Temp Pulse Resp B/P (MAP) Pulse Ox O2 Delivery O2 Flow Rate FiO2 05/17/25 11:35 98.1 79 18 91/67 96 Room Air 21 05/17/25 08:00 98.4 89 19 103/58 98 Room Air 21 Laboratory: [ ] Laboratory: Test 05/17/25 11:09 05/17/25 05:23 05/16/25 06:40 05/15/25 22:25 Range/Units Whole Blood Glucose 137 H 70-110 MG/DL White Blood Count 7.7 4.8-10.8 K/uL Red Blood Count 3.77 L 4.00-5.50 MIL/uL Hemoglobin 10.4 L 12.0-16.0 g/dL Hematocrit 31.7 L 36-48 % Mean Corpuscular Volume 84.1 79-99 fL Mean Corpuscular Hemoglobin 27.6 27.0-33.0 pg Mean Corpuscular Hemoglobin Concent 32.8 32.0-36.0 g/dL Red Cell Distribution Width 13.3 11.0-15.5 % Platelet Count 401 H 130-400 K/uL Mean Platelet Volume 11.2 H 7.5-10.5 fL Nucleated Red Blood Cells 0.0 0.0-0.19 % Sodium Level 134 L 136-145 mmol/L Potassium Level 3.7 3.5-5.1 mmol/L Chloride Level 99 L 101-111 mmol/L Carbon Dioxide Level 23 21-32 mmol/L Blood Urea Nitrogen 9 7-18 mg/dL Creatinine 0.4 L 0.5-1.0 mg/dL Glomerular Filtration Rate Calc 131 >90 mL/min Random Glucose 216 H 70-105 mg/dL Total Calcium 8.2 L 8.5-10.1 mg/dL Magnesium Level 1.80 1.80-2.40 mg/dL Total Bilirubin 0.4 0.2-1.0 mg/dL Aspartate Amino Transf (AST/SGOT) 13 10-37 U/L Alanine Aminotransferase (ALT/SGPT) 20 12-78 U/L Alkaline Phosphatase 72 50-136 U/L Total Protein 7.2 6.0-8.3 g/dL Albumin 3.4 L 3.5-5.0 g/dL Immature Granulocyte % (Auto) 0.4 0-1 % Neutrophils (%) (Auto) 71.6 40.0-77.0 % Lymphocytes (%) (Auto) 20.5 L 21.0-51.0 % Monocytes (%) (Auto) 7.3 3.0-13.0 % Eosinophils (%) (Auto) 0.0 0.0-8.0 % Basophils (%) (Auto) 0.2 0.0-5.0 % Neutrophils # (Auto) 6.1 1.8-7.7 K/uL Lymphocytes # (Auto) 1.7 1.0-4.8 K/uL Monocytes # (Auto) 0.6 0.1-1.0 K/uL Eosinophils # (Auto) 0.00 0.00-0.70 K/uL Basophils # (Auto) 0.02 0.00-0.20 K/uL Absolute Immature Granulocyte (auto 0.03 0-1 K/uL Thyroid Stimulating Hormone (TSH) 1.13 0.36-3.74 uIU/mL Hemoglobin A1c 7.5 H 4.0-6.0 % Estimated Average Glucose (eAG) 169 H 70-126 mg/dL Test 05/15/25 18:43 05/15/25 17:41 Range/Units Urine Color LIGHT-YELLOW YELLOW Urine Appearance CLEAR CLEAR Urine pH 7.0 5.0-8.0 Urine Specific [place] 1.032 H 1.001-1.031 Urine Protein NEGATIVE NEGATIVE mg/dL Urine Glucose (UA) >=1000 H NEGATIVE mg/dL Urine Ketones 150 H NEGATIVE mg/dL Urine Occult Blood NEGATIVE NEGATIVE Urine Nitrate NEGATIVE NEGATIVE Urine Bilirubin NEGATIVE NEGATIVE mg/dL Urine Urobilinogen 0.2 0.2-1.0 mg/dL Urine Leukocyte Esterase NEGATIVE NEGATIVE [place]/uL Urine RBC 0-1 0-1 /HPF Urine WBC 0-1 0-1 /HPF Urine Squamous Epithelial Cells RARE 0-2 /HPF Urine Bacteria None None Seen /HPF Urine Opiates Screen NEGATIVE NEGATIVE Urine Barbiturates Screen NEGATIVE NEGATIVE Urine Phencyclidine Screen NEGATIVE NEGATIVE Urine Amphetamines Screen NEGATIVE NEGATIVE Urine Benzodiazepines Screen NEGATIVE NEGATIVE Urine Cocaine Screen NEGATIVE NEGATIVE Urine Marijuana (THC) Screen NEGATIVE NEGATIVE Direct Bilirubin 0.1 0.0-0.3 mg/dL Total Creatine Kinase 42 # 21-232 U/L Troponin I High Sensitivity < 4 L 4-50 ng/L Lipase 14 L 16-77 U/L Serum Test, Qualitative NEGATIVE NEGATIVE Current Medications Medications (Trade) Dose Ordered Sig/Neva Route PRN Reason Start Time Stop Time Status Last Admin Dose Admin Acetaminophen (TYLenol 325MG TAB) 650 mg Q4H PRN PO MILD PAIN (1-3) 05/15/25 22:00 12/12/25 21:59 Acetaminophen (TYLenol 325MG TAB) 650 mg Q6H PRN PO TEMPERATURE GREATER THAN 101.5 05/15/25 22:00 06/14/25 21:59 Dextrose (D50w) 50 ml AD PRN IV HYPOGLYCEMIA PROTOCOL 05/15/25 22:00 06/14/25 21:59 Glucagon (Glucagon 1mg Kit) 1 mg AD PRN IM HYPOGLYCEMIA PROTOCOL 05/15/25 22:00 06/14/25 21:59 Insulin Human Regular (humuLIN R 100 UNIT/ML 3ML) INSULIN SLIDING SCAL... ACHS SQ 05/16/25 07:30 06/15/25 07:29 05/17/25 06:49 4 UNIT Lactated Ringer's 1,000 ml @ 75 mls/hr [id number] IV 05/16/25 11:00 06/15/25 10:59 05/17/25 04:40 75 MLS/HR Magnesium Sulfate 50 ml @ 0 mls/hr PROTOCOL IV 05/15/25 19:30 06/14/25 19:29 05/15/25 19:56 25 MLS/HR Magnesium Sulfate 50 ml @ 0 mls/hr PROTOCOL PRN IV OTHER [SEE ORDER COMMENTS] 05/15/25 22:00 05/17/25 06:13 DC Metoclopramide HCl (regLAN 10MG IV) 10 mg Q6H IVP 05/16/25 22:00 05/16/25 22:16 DC Metoclopramide HCl (regLAN 10MG IV) 10 mg Q6H IVP 05/16/25 23:30 06/15/25 23:29 05/17/25 11:45 10 MG Metoclopramide HCl (regLAN 10MG IV) 10 mg Q6H PRN IVP OTHER [SEE ORDER COMMENTS] 05/15/25 22:00 05/16/25 18:43 DC 05/16/25 18:30 10 MG Ondansetron HCl (zoFRAN 4MG INJ) 4 mg Q6H PRN IV NAUSEA/VOMITING 05/15/25 22:00 06/14/25 21:59 05/17/25 04:36 4 MG Pantoprazole Sodium (PROTonix 40MG INJ) 40 mg DAILY IVP 05/16/25 09:00 06/15/25 08:59 05/17/25 09:00 40 MG Pharmacy Profile Note (Lace Assessment) 1 each AD MISC 05/16/25 15:00 05/16/25 14:56 DC Potassium Chloride 100 ml @ 50 mls/hr AD PRN IV POTASSIUM PROTOCOL 05/15/25 22:00 06/14/25 21:59 Sodium Chloride 1,000 ml @ 100 mls/hr Q10H IV 05/15/25 22:00 05/16/25 10:51 DC 05/16/25 08:43 100 MLS/HR Diagnostics / Radiology: [COPY/PASTE HERE IF NO REPORTS PLEASE DELETE SECTION] Assessment: Epigastric pain N/V Gastroparesis Dilated CBD Plan: Obtain MRCP to r/o cbd stone Trend LFTs Reglan for gastroparesis Continue GI prophylaxis Advance diet as tolerated Avoid NSAIDs Antireflux measures Monitor H&H and transfuse as needed Call with questions, concerns or change in clinical status Patient to follow-up at clinic post discharge Thank you for this consult NADINE POZO [employer] May 17, 2025 12:54
[2025-05-17 16:19] VITALS: BP 93/66; PULSE 76; RESP 18; TEMP 98.1
--- NOTE | 2025-05-17 17:40 | NUR ---
PATIENT REQUESTED AMA FORM STATES THAT HER CHILD IS SICK AND SHE MUST GO HOME. NOTIFIED THE DR. LANTIGUA FORM GIVEN TO PATIENT AND EXPLAINED SHE IS LEAVING AGAINST THE ADVICE OF THE DOCTOR. VERBALIZED UNDERSTANDING. IV REMOVED AND BAND-AID APPLIED. ALL BELONGINGS WITH PATIENT.
--- NOTE | 2025-05-18 08:57 | DS ---
Discharge Summary Hospital Course Summary: Date of service 05/17/2025 The patient has signed against medical advice The patient initially admitted to the hospital May 15, 2025 with the following history of present illness: This is a 39-year-old female past medical history of diabetes and gastroparesis who was brought by EMS to the ED for complaints of persistent epigastric pain associated with nausea and vomiting started today. As per patient has been hav ing problem before has been admitted in the hospital every month for similar complaints.Patient reports she is taking her insulin Novolog insulin 30 units in the morning and 35 units in the evening.Patient reports ,she did not eat anything today and she suddenly experienced epigastric pain,nausea and vomiting.Patient does not have a PCP . Patient underwent an ERCP with sphincterotomy and papillotomy on 03/27/2025. Patient also underwent a gastric emptying study on 03/24/2025 result suggests gastroparesis. Seen and examined patient in the ER awake,alert and coherent,appears uncomfortable.Patient denies fever,chills,chest pain,palpitation,shortness of breath and diarrhea. Latest vital signs temperature 98.2, heart rate 82, blood pressure 159/96 saturation 97% on room air. Labs: Hemoglobin 11, hematocrit 33, platelet count 385. Glucose 254, magnesium 1.5 troponin less than four lipase 14 serum negative. Urine toxicology negative urinalysis significant for urine glucose above 1000 and urine ketones 150 otherwise unremarkable. While in the ER patient received 1 L NS bolus, Zofran 4 mg IV, Protonix 40 mg IV, magnesium replacement and Reglan 10 mg IV. ER Called and recommended to admit the patient. HOSPITAL COURSE 05/16 power chart reviewed, vital signs, laboratory tests, imaging tests and medications reviewed, BP 120/64, heart rate of 104, afebrile, saturating normal on room air, hemoglobin 9.2, hematocrit 39.2, WBC 8.5, platelet count of 351, blood glucose level 0231, hemoglobin A1c 7.5, troponin less than four, albumin 3.2, serum test negative, urine drug screen negative. Patient with a history of diabetes gastroparesis, continue Reglan IV, continue Protonix 40 mg IV b.i.d.. Repeat CBC today, transfuse 1 unit of PRBC if hemoglobin less than seven. Patient underwent an ERCP with sphincterotomy and papillotomy on 03/27/2025. Patient also underwent a gastric emptying study on 03/24/2025 result suggests gastroparesis.GI consultation requested, follow input and recommendation. During my visit the patient comfortably in bed, alert oriented x3, hemodynamically stable, denies chest pain, shortness shortness for breath, no nausea, no vomiting, no abdominal discomfort. We will started LR at 75 mL/hr, clear liquid diet. 05/17 patient is seen and examined at bedside, discussed with the RN, no acute events overnight, patient comfortably in bed, alert oriented x3, on clear liquid diet, still mildly nauseated, but not actively vomiting, denies abdominal discomfort. Patient evaluated by Gastroenterology, patient is scheduled for MRCP today. Continue to follow CBC in a.m. transfuse as needed, replace electrolytes IV per protocol. Advanced diet as tolerated. Discussed with the patient, in agreement. , THE NURSE TAKING CARE OF THE PATIENT DURING THE DAY THAT THE PATIENT WANTED TO SIGN AGAINST MEDICAL ADVICE, RISK OF HER DECISION DISCUSSED IN DETAIL, PATIENT ALERT ORIENTED X3, UNDERSTOOD THE INFORMATION PROVIDED, HOWEVER DECIDED TO SIGN AMA. Investigations Director(s): [employer] Assessment/Plan: DIAGNOSIS Intractable abdominal pain POA Intractable nausea and vomiting POA Poorly controlled gastroparesis POA Normocytic normochromic anemia POA Uncontrolled diabetes POA Hypomagnesemia POA Discharge Instructions: THE PATIENT HAS SIGNED AMA. INSTRUCTED TO RETURN TO THE HOSPITAL IF CONDITION CHANGES. Home Medications: Active Scripts Metoclopramide HCl (Metoclopramide HCl) 5 Mg Tablet, 1 TAB PO TID for 30 Days, #90 TAB 0 Refills Prov:RAD LAW MD 04/19/25 Reported Medications Insulin NPH Hum/Reg Insulin Hm (Novolin 70-30 Flexpen) 100 Unit/Ml (70-30) Insuln.pen, 25 UNIT SQ HS, SYRINGE 03/01/25 Insulin NPH Hum/Reg Insulin Hm (Novolin 70-30 Flexpen) 100 Unit/Ml (70-30) Insuln.pen, 35 UNIT SQ DAILY, SYRINGE 03/01/25 Time spent arranging discharge: 31-60 minutes CHEKO SPARKS MD May 18, 2025 08:57
== END 2025-05-17 17:40 | disposition left against medical advice (07) | DRG 74 ==
LOC: EDH 17:19 → EDHIP 17:20 → 1MS 05-16 09:45
PROVIDERS: ADMIT Internal Medicine; ATTEND Internal Medicine
DX: E11.43 Type 2 diabetes mellitus with diabetic autonomic (poly)neuropathy (principal); D64.9 Anemia, unspecified; K31.84 Gastroparesis; E11.65 Type 2 diabetes mellitus with hyperglycemia; E83.42 Hypomagnesemia; Z79.4 Long term (current) use of insulin; Z82.49 Family history of ischemic heart disease and other diseases of the circulatory system; Z83.3 Family history of diabetes mellitus; Z79.899 Other long term (current) drug therapy
CPT/HCPCS: 36415; 74178; 80048; 80053; 80076; 80305; 81001; 82550; 82948; 83036; 83690; 83735; 84443; 84484; 84703; 85025; 85027; 93005; 96374; 96375; 99285; G0378; J1815; J1885; J2405; J2470; J2765; J3475; J7030; Q9967

== ENCOUNTER 2025-05-29 21:40 | Emergency (ER) | payer SELFPAY ==
[~2025-05-29] VITALS: Ht 165.1 cm; Wt 59.0 kg
--- NOTE | 2025-05-29 21:55 | ERN ---
ED Note History of Present Illness Stated Complaint: ABDOMINAL PAIN, N/V Chief Complaint: Abdominal Pain Time Seen by MD: 21:44 Dictation: This is a 39-year-old female with known history of severe diabetes with a gastroparesis and recurrent admissions with nausea vomitings and abdominal discomfort. She was recently admitted on 05/15 2025 and she left AMA on 05/17/2025, she stated that she has been vomitings for the past 2 days and had abdominal discomfort and hence she came into the ER for further evaluation. No hematemesis or melena no diarrhea. Last bowel movement was 4 days ago EMS gave her Phenergan hence she was a little drowsy during my evaluation Temperature 98 pulse 96 respirations 16 blood pressure 117/83 with a pulse oximetry of 100% on room air Chronic medical problems include diabetes mellitus, diabetic gastroparesis, history of ERCP and sphincterotomy and papillotomy. Allergies: Coded Allergies: No Known Drug Allergies (Unverified Allergy, Unknown, 10/02/15) Home Meds Active Scripts Metoclopramide HCl (Metoclopramide HCl) 5 Mg Tablet, 1 TAB PO TID for 30 Days, #90 TAB 0 Refills Prov:RAD LAW MD 04/19/25 Reported Medications Insulin NPH Hum/Reg Insulin Hm (Novolin 70-30 Flexpen) 100 Unit/Ml (70-30) Insuln.pen, 25 UNIT SQ HS, SYRINGE 03/01/25 Insulin NPH Hum/Reg Insulin Hm (Novolin 70-30 Flexpen) 100 Unit/Ml (70-30) Insuln.pen, 35 UNIT SQ DAILY, SYRINGE 03/01/25 Past Medical History Past Medical History: Diabetes-Type I, Diabetes-Type II, Other Additional Past Medical Hx: GASTROPARESIS Surgical History: Cholecystectomy, Surgical History Other: TUBAL LIGATION 2019 Family History: Negative Social History: Negative, Lives with family, Other History: Not Applicable RN Note Reviewed/Agreed w/PFSH: Yes Review of System Dictation Constitutional: Negative for fever,chills, and weight loss Eyes: Negative for injury, pain,redness, and discharge ENT: Negative for injury,pain or swelling Cardiovascular: Negative for chest pain, palpitations, and edema Respiratory: Negative for shortness of breath, cough, and wheezing, Abdomen/GI: Positive for abdominal pain, nausea, vomiting, and constipation Back: Negative for injury and pain : Negative for injury, bleeding and discharge MS/Extremity: Negative for injury and deformity Skin: Negative for rash, and discoloration Neuro: Negative for headache, weakness, numbness, tingling, and seizure Psych: Negative for suicide ideation, homicidal ideation, and hallucinations Initial Vital Sign VS Vital Signs Date Time Temp Pulse Resp B/P (MAP) Pulse Ox O2 Delivery O2 Flow Rate FiO2 05/29/25 21:42 98.1 96 16 117/83 100 Room Air 0 05/29/25 22:14 21 Physical Exam Dictation General: awake, alert, NAD Head/Face: Normocephalic, atraumatic Eyes: PERRL, EOMI, vision at baseline ENT: oral cavity clear, TMs clear, no signs of infection Neck: Trachea midline, supple, no nuchal rigidity Cardiovascular: RRR, normal S1/S2, No MRGs, no JVD Respiratory: CTAB, no respiratory distress, No rales or wheezes Abdomen: Soft, non-tender, non-distended, normal bowel sounds, no guarding or rebound. Skin: Warm, dry, normal turgor, no rash MS/Extremity: Pulses equal, no cyanosis, neurovascular intact, FROM Neuro: COAx4, GCS 15, strength 5/5, CN 2-12 intact, normal cerebellar exam, normal gait, Psych: Normal behavior, mood, and affect normal Extremities-trace edema without any palpable cords, Homans sign is negative Results (Laboratory/Radiology) Laboratory/Radiology Laboratory Tests Test 05/29/25 22:08 White Blood Count 7.0 K/uL (4.8-10.8) Red Blood Count 4.44 MIL/uL (4.00-5.50) Hemoglobin 12.1 g/dL (12.0-16.0) Hematocrit 37.6 % (36-48) Mean Corpuscular Volume 84.7 fL (79-99) Mean Corpuscular Hemoglobin 27.3 pg (27.0-33.0) Mean Corpuscular Hemoglobin Concent 32.2 g/dL (32.0-36.0) Red Cell Distribution Width 13.2 % (11.0-15.5) Platelet Count 207 K/uL (130-400) Mean Platelet Volume 12.2 fL (7.5-10.5) H Immature Granulocyte % (Auto) 0.1 % (0-1) Neutrophils (%) (Auto) 69.1 % (40.0-77.0) Lymphocytes (%) (Auto) 22.5 % (21.0-51.0) Monocytes (%) (Auto) 8.0 % (3.0-13.0) Eosinophils (%) (Auto) 0.0 % (0.0-8.0) Basophils (%) (Auto) 0.3 % (0.0-5.0) Neutrophils # (Auto) 4.8 K/uL (1.8-7.7) Lymphocytes # (Auto) 1.6 K/uL (1.0-4.8) Monocytes # (Auto) 0.6 K/uL (0.1-1.0) Eosinophils # (Auto) 0.00 K/uL (0.00-0.70) Basophils # (Auto) 0.02 K/uL (0.00-0.20) Absolute Immature Granulocyte (auto 0.01 K/uL (0-1) Nucleated Red Blood Cells 0.0 % (0.0-0.19) Sodium Level 126 mmol/L (136-145) L Potassium Level 4.3 mmol/L (3.5-5.1) Chloride Level 92 mmol/L (101-111) L Carbon Dioxide Level 22 mmol/L (21-32) Blood Urea Nitrogen 11 mg/dL (7-18) Creatinine 0.5 mg/dL (0.5-1.0) Glomerular Filtration Rate Calc 124 mL/min (>90) Random Glucose 247 mg/dL (70-105) H Whole Blood Ketones Quantitative 2.8 mmol/L (0.0-0.6) H Lactic Acid Level 1.6 mmol/L (0.8-2.5) Total Calcium 9.0 mg/dL (8.5-10.1) Lipase 20 U/L (16-77) CT Scan Comment: REASON: n/v, recent ercp ORDERING PHYSICIAN: NADINE POZO PROCEDURE: ABD PELWWO - CT ABDOMEN/PELVIS W/WO CONTRAS EXAM: CT Abdomen and Pelvis with and without IV contrast CLINICAL HISTORY: Nausea and vomiting. Recent ERCP. TECHNIQUE: Axial computed tomography images of the abdomen and pelvis with and without intravenous contrast. CONTRAST: with and without intravenous contrast. COMPARISON: Mar 22, 2025 CT Abdomen and Pelvis without IV contrast. FINDINGS: LUNG BASES: The lung bases appear clear. No pleural effusions are seen. LIVER: The liver is enlarged, measuring approximately 19 cm, and demonstrates fatty infiltration. GALLBLADDER AND BILE DUCTS: Status post cholecystectomy. Mild dilation of the common bile duct measuring up to 1.1 cm. PANCREAS: Unremarkable. SPLEEN: Unremarkable. ADRENAL GLANDS: Unremarkable. KIDNEYS, URETERS, AND BLADDER: The kidneys appear within normal limits. There is no hydronephrosis or hydroureter. No urinary calculi are seen. STOMACH AND BOWEL: Unremarkable appearance of the stomach and bowel. No evidence of bowel obstruction. No evidence suggesting enteritis or colitis.Mild fecal loading of the colon. APPENDIX: No evidence of acute appendicitis on CT examination. PERITONEUM: No free fluid. No free air. LYMPH NODES: No lymphadenopathy is evident. REPRODUCTIVE: Unremarkable as visualized. VASCULATURE: No evidence of abdominal aortic aneurysm. BONES: No aggressive appearing osseous lesion. No acute osseous pathology is evident. Mild Degenerative changes in the lumbar spine. A stable sclerotic focus measuring 0.7 cm in the left proximal femur is likely a benign bone island. IMPRESSION: Mild dilation of the common bile duct at 1.1 cm in the setting of prior cholecystectomy. Consider MRCP to further assess for choledocholithiasis or stricture. Hepatomegaly with fatty infiltration. Urinary bladder wall thickening measuring 6 mm is concerning for cystitis. Recommend urinalysis and urine culture for evaluation of cystitis. No acute intra-abdominal or pelvic abnormality identified. /[place] DICTATED BY: LICHA RUDOLPH Jr., MD DATE: 05/16/252005 ELECTRONICALLY SIGNED BY: LICHA RUDOLPH Jr., MD DATE: 05/16/252005 ED Course ED Course Orders Procedure Category Date Status Time Cbc With Differential LAB 05/29/25 Complete 21:50 Basic Metabolic Panel LAB 05/29/25 Complete 21:50 Urinalysis Profile LAB 05/29/25 Logged 21:50 Lipase LAB 05/29/25 Complete 21:50 0.9%Nacl 1000ml (Ns PHA 05/29/25 Complete 1000ml) 22:00 Ketorolac PHA 05/29/25 Complete Tromethamine 30mg/Ml 22:00 Ondansetron 4mg Inj PHA 05/29/25 Complete (Zofran 4mg Inj) 22:00 Famotidine 20mg Vial PHA 05/29/25 Complete (Pepcid 20mg Vial) 22:00 Lactic Acid LAB 05/29/25 Complete 21:50 Ketone Blood LAB 05/29/25 Complete Quantitative 21:50 Current Medications Medications (Trade) Dose Ordered Sig/Neva Route PRN Reason Start Time Stop Time Status Last Admin Dose Admin Famotidine (Pepcid 20mg Vial) 20 mg ONCE ONCE IV 05/29/25 22:00 05/29/25 22:01 DC 05/29/25 22:07 Ketorolac Tromethamine (toRADol) 30 mg ONCE ONCE IVP 05/29/25 22:00 05/29/25 22:01 DC 05/29/25 22:07 Ondansetron HCl (zoFRAN 4MG INJ) 4 mg ONCE ONCE IVP 05/29/25 22:00 05/29/25 22:01 DC Sodium Chloride 1,000 ml @ 0 mls/hr ONCE ONCE IV 05/29/25 22:00 05/29/25 22:01 DC 05/29/25 22:07 Vital Signs Date Time Temp Pulse Resp B/P (MAP) Pulse Ox O2 Delivery O2 Flow Rate FiO2 05/29/25 22:14 98.6 88 18 112/79 99 Room Air* 0 21 05/29/25 21:42 98.1 96 16 117/83 100 Room Air 0 Medical Decision Making MDM Differential diagnosis: Gastroparesis, constipation, gastroenteritis, pancreatitis, cholangitis This is a 39-year-old female with known history of severe diabetes with a gastroparesis and recurrent admissions with nausea vomitings and abdominal discomfort. She was recently admitted on 05/15 2025 and she left AMA on 05/17/2025, she stated that she has been vomitings for the past 2 days and had abdominal discomfort and hence she came into the ER for further evaluation. No hematemesis or melena no diarrhea. Last bowel movement was 4 days ago EMS gave her Phenergan hence she was a little drowsy during my evaluation Temperature 98 pulse 96 respirations 16 blood pressure 117/83 with a pulse oxi metry of 100% on room air Chronic medical problems include diabetes mellitus, diabetic gastroparesis, history of ERCP and sphincterotomy and papillotomy. 11:30 p.m. labs reviewed CBC is with a normal limits. BNP 7 shows a sodium of 126 chloride 92 bicarb 22. Serum glucose was 247, lactic acid 1.6 serum ketones 2.8 She received aggressive hydration and pain medicine. I updated her on the labs and I suspect some of the ketonemia is related to starvation and she does not have any anion gap at this time She will be discharged to home to follow up with her primary care physician. Rationale: Tests considered and ordered secondary to shared decision making include: Labs Previous outside records reviewed: Old ER visits. Risk of complication and/or morbidity or mortality of patient management: None Medications-Per medication reconciliation Need for hospitalization: Patient does not meet criteria for hospitalization. Need for emergency major/minor surgery: No There are no social concerns with this patient. Prescription drug management Prescriptions will include symptomatic care Patient's prior external medical records from other ER visits were reviewed by me as indicated. Prior testing and results from previous visits were reviewed. Prior tests were taken into account with medical decision making and resource utilization, independent historian/historians were used to obtain complete me dical history. I independently interpreted the test that were performed, results were reviewed by me and considered findings on radiology if ordered. Medical management and examination interpretation discussions were had by me with other qualified healthcare professionals as indicated for the patient's care. DX & DISP Disposition: Discharge Departure Impression: Primary Impression: Nonspecific abdominal pain Additional Impressions: Nausea and vomiting, Gastroparesis diabeticorum, Constipation by delayed colonic transit Condition: Stable Additional Instructions: Patient and the caregiver have been informed of all the diagnostic tests and the imaging conducted during the today's visit to the emergency room and has verbalized understanding of the results I have personally reviewed and interpreted all diagnostic exams performed here in the ER today as well as the vital signs documented by the nursing staff. The patient is now being discharged to home and should follow up with the primary care physician or the specialist as directed by the ER staff. Extensive counseling on diligent compliance with her diabetes control. Avoidance of fatty difficult to digest foods in view of the gastroparesis. Encourage small meals more frequently. She indicated that she has a laxative at home which she is going to take for her constipation. Referrals: NONE (PCP) LANDON LOCKETT MD May 29, 2025 21:54
[2025-05-29] MEDS: FAMOTIDINE 20MG VIAL IV ONE (22:07)
[2025-05-29] MEDS: 0.9%NACL 1000ML 1,000 ML IV ONE (22:07)
[2025-05-29 22:20] LABS: IMMATURE GRANULOCYTE ABSOLUTE 0.01 K/uL (0-1); NUCLEATED RED BLOOD CELLS 0.0 % (0.0-0.19); PLATELET COUNT (AUTO) 207 K/uL (130-400); RED BLOOD CELL COUNT(AUTO) 4.44 MIL/uL (4.00-5.50); RED CELL DISTRIBUTION WIDTH 13.2 % (11.0-15.5); WHITE BLOOD COUNT (AUTO) 7.0 K/uL (4.8-10.8)
[2025-05-29 22:30] LABS: CREATININE 0.5 mg/dL (0.5-1.0); GLOMERULAR FILTR. RATE CALC 124.0 mL/min (>90); GLUCOSE,RANDOM 247.0 mg/dL (70-105); SODIUM SERUM 126.0 mmol/L (136-145); UREA NITROGEN, BLOOD 11.0 mg/dL (7-18)
[2025-05-30 00:36] VITALS: BP 118/72; PULSE 79; RESP 18; TEMP 98.2; O2SAT 100
[2025-06-05] MEDS ORDERED: POTA-202 PO (14:26)
[2025-06-05] MEDS ORDERED: NITR100C PO (14:26)
[2025-06-05] MEDS ORDERED: MIDO5TAB4 PO (14:26)
[2025-06-05] MEDS ORDERED: METO5TAB2 PO (14:26)
[2025-06-05] MEDS ORDERED: INSU100I35 SQ ×2 (14:26)
== END 2025-05-30 00:40 | disposition home or self-care (01) ==
LOC: EDH 21:40
DX: E10.43 Type 1 diabetes mellitus with diabetic autonomic (poly)neuropathy (principal); K31.84 Gastroparesis; K59.01 Slow transit constipation; R10.9 Unspecified abdominal pain; R11.2 Nausea with vomiting, unspecified; Z79.4 Long term (current) use of insulin; Z90.49 Acquired absence of other specified parts of digestive tract; Z98.51 Tubal ligation status
CPT/HCPCS: 99284; 96374; 96361; 96375; 80048; 83690; 85025; 83605; 82010; 36415; J1885; J1308; J7030; 99285